=== PATIENT | male | born 1940 | race Caucasian/White ===

== ENCOUNTER 2022-11-17 23:19 | Inpatient (IN) ==
[2022-11-17] MEDS ORDERED: DIPHTHERIA/TETANUS/PERTUSSIS 0.5mL SYR/VIAL (Age 7+yrs) IM ONE (23:48)
[2022-11-17] MEDS ORDERED: fentaNYL citrate PF 100 MCG/2 ML VIAL IV STA (23:48)
--- NOTE | 2022-11-17 23:54 | Emergency Department Note ---
History of Present Illness General Chief complaint: Fall Stated complaint: Hip Pain, Laceration top of head Time Seen by Provider: 11/17/22 23:35 History of Present Illness Maximum Pain Intensity: 10 82-year-old male presents emergency department states that he walked outside on his porch and he fell off 3 steps landing on the ground and hit his head first. Patient states he has right hip pain. Patient is unsure whether he had loss of consciousness. Patient is currently on aspirin. Patient denies any neck pain numbness or tingling in the upper or lower extremities. Patient states pain with motion of the right hip. Patient denies any other trauma. There are no other mitigating or alleviating factors. Patient was given IV fentanyl by EMS prior to arrival Home Medications Medication Instructions Recorded Confirmed Type albuterol sulfate 90 mcg/actuation 2 puff inhalation Q4H PRN 11/17/22 11/18/22 History aerosol inhaler Shortness Of Breath aspirin 81 mg tablet,delayed 81 mg PO DAILY 11/17/22 11/18/22 History release budesonide-formoterol HFA 160 2 inh inhalation BID 11/17/22 11/18/22 History mcg-4.5 mcg/actuation aerosol inhaler (Symbicort) carbamazepine 200 mg tablet 200 mg PO TID 11/17/22 11/18/22 History cholecalciferol (vitamin D3) 25 50 mcg PO DAILY 11/17/22 11/18/22 History mcg (1,000 unit) tablet famotidine 20 mg tablet 20 mg PO DAILYBB 11/17/22 11/18/22 History finasteride 5 mg tablet 5 mg PO DAILY 11/17/22 11/18/22 History fluticasone propionate 50 2 spray intranasal DAILY 11/17/22 11/18/22 History mcg/actuation nasal spray,suspension folic acid 1 mg tablet 1 mg PO DAILY 11/17/22 11/18/22 History furosemide 20 mg tablet 20 mg PO DAILY 11/17/22 11/18/22 History metoprolol succinate 25 mg 12.5 mg PO DAILY 11/17/22 11/18/22 History tablet,extended release 24 hr oxycodone 5 mg tablet 5 mg PO Q6H PRN Pain 11/17/22 11/18/22 History pantoprazole 40 mg tablet,delayed 40 mg PO BID 11/17/22 11/18/22 History release potassium chloride 10 mEq 10 meq PO DAILY 11/17/22 11/18/22 History tablet,extended release(part/cryst) (Natalie White) simvastatin 20 mg tablet 40 mg PO QPM 11/17/22 11/18/22 History tamsulosin 0.4 mg capsule 0.8 mg PO DAILY 11/17/22 11/18/22 History tizanidine 4 mg tablet 4 mg PO Q8H PRN MUSCLE SPASMS 11/17/22 11/18/22 History Allergies Allergy/AdvReac Type Severity Reaction Status Date / Time tiotropium Allergy Severe "CAN'T Verified 11/18/22 00:06 CATCH MY BREATH". Past Med/Surg History Social History Smoking Status: Current every day smoker Tobacco Type: Cigars Feels Safe at Home: Yes Immunizations: Past medical history COPD, hypertension, lumbar spine issues, currently under pain management Social history positive for smoking Review of Systems A total of 10 systems reviewed and were otherwise negative Gastrointestinal: no abdominal pain Musculoskeletal: + limited range of motion; no back pain Physical Exam Vital Signs Vital Signs - 24 hr 11/17/22 23:23 11/17/22 23:30 11/17/22 23:36 Temperature 37.0 C Temperature Source Oral Pulse Rate 92 H 89 104 H Pulse Rate from SpO2 Sensor 101 H Pulse Rhythm Respiratory Rate 22 15 Respiratory Effort / Characteristics Non-Labored Respiratory Depth Normal Respiratory Pattern Regular Blood Pressure 136/58 L 125/71 Blood Pressure Mean 84 89 Pulse Oximetry 94 92 Oxygen Delivery Method Nasal Cannula Nasal Cannula Oxygen Flow Rate 2 2 Sepsis Recent Fever Within 48 Hours No Sepsis New/Unexplained Change in Mental Status N/A Sepsis Action Taken by Nursing No Action Required 11/17/22 23:51 11/18/22 00:41 Temperature Temperature Source Pulse Rate 104 H 104 H Pulse Rate from SpO2 Sensor 106 H Pulse Rhythm Regular Respiratory Rate 22 18 Respiratory Effort / Characteristics Respiratory Depth Respiratory Pattern Blood Pressure 134/77 Blood Pressure Mean 96 Pulse Oximetry 94 93 Oxygen Delivery Method Room Air Nasal Cannula Oxygen Flow Rate 2 Sepsis Recent Fever Within 48 Hours Sepsis New/Unexplained Change in Mental Status Sepsis Action Taken by Nursing GENERAL: Patient is awake alert in no acute distress patient is resting comfortably and showing no signs of anxiety EYES: The conjunctivae are clear. The pupils are round and reactive. EARS, NOSE, MOUTH AND THROAT: The nose is without any evidence of any deformity. Mucous membranes are moist. Tongue is midline. HEAD: Patient has a small superficial laceration approximately 2 cm on the vertex of his head NECK: The neck is nontender and supple. Nontender midline RESPIRATORY: Normal respiratory effort is noted there is no evidence of wheezing rhonchi or rales CARDIOVASCULAR: Regular rate and rhythm noted there no murmurs rubs or gallops normal S1 normal S2. GASTROINTESTINAL: The abdomen is soft. Abdomen is nontender. PELVIS: The Pelvis is stable. Patient has tenderness to the right hip with decreased range of motion he is neurovascularly intact distally BACK: No midline tenderness or or step-off noted range of motion in flexion extension as well as rotation no signs of muscle spasm noted MUSCULOSKELETAL/EXTREMITIES: There is no evidence of gross deformity full range of motion is noted in the hips and shoulders. SKIN: There is no obvious evidence of any rash. There are no petechiae, pallor or cyanosis noted. NEUROLOGIC: Patient is awake alert and oriented x3; GCS 15 Course Reevaluation(s) Reevaluation #1: Patient is resting in no distress on repeat examination. Patient was given IV fentanyl. Time: 00:51 Consultations Consultation #1: Case was discussed with the [facility] hospitalist for admission Time: 01:44 Administered Medications Discontinued Medications Diphtheria/Pertussis/Tetanus Vacc (Diphtheria/Tetanus/Pertussis 0.5ml Syr/Vial (Age 7+Yrs)) 0.5 ml IM .ONCE ONE Stop: 11/17/22 23:49 Last Admin: 11/18/22 00:06 Dose: 0.5 ml Documented By: ALEM Fentanyl Citrate (Fentanyl Citrate Pf 100 Mcg/2 Ml Vial) 50 mcg IV NOW STA Stop: 11/17/22 23:49 Last Admin: 11/18/22 00:08 Dose: 50 mcg Documented By: ALEM Morphine Sulfate (Morphine Sulfate 2 Mg/Ml Carp) 2 mg IV NOW STA Stop: 11/18/22 01:24 Last Admin: 11/18/22 01:37 Dose: 2 mg Documented By: ALEM Medical Decision Making Medical Records Attestation: I reviewed the patient's medical records. Home Medications Current Medication List: was personally reviewed by Laboratory Data Attestation: I reviewed the patient's lab results. Lab work reviewed by me is unremarkable 11/18/22 00:05 11/18/22 00:05 Lab Results 11/18/22 11/18/22 11/18/22 Range/Units 00:05 00:05 00:05 WBC 9.89 (4.8-10.8) K/ul RBC 3.11 L (4.70-6.10) M/uL Hgb 10.6 L (14.0-18.0) g/dl Hct 31.7 L (42.0-52.0) % MCV 101.9 H (80.0-100.0) fL MCH 34.1 H (25.0-34.0) pg MCHC 33.4 (32.0-36.0) g/dL RDW Std Deviation 52.1 H (36.4-46.3) fL RDW Coeff of Risa 13.9 (11.5-14.5) % Plt Count 229 (130-400) K/uL MPV 11.0 (9.4-12.4) fL Immature Gran % (Auto) 0.8 % Neut % (Auto) 69.2 % Lymph % (Auto) 19.6 % [place] % (Auto) 6.4 % Eos % (Auto) 3.5 % Baso % (Auto) 0.5 % Neut # (Auto) 6.84 H (1.40-6.50) K/uL Lymph # (Auto) 1.94 (1.2-3.4) K/uL Sum[place] # (Auto) 0.63 H (0.11-0.59) K/uL Eos # (Auto) 0.35 (0-0.50) K/uL Baso # (Auto) 0.05 (0-0.2) K/uL Immature Gran # (Auto) 0.08 (0.01-0.20) K/uL PT 10.6 (9.0-12.0) Seconds INR 1.0 (0.9-1.1) APTT 24.2 (21.0-31.0) Seconds PTT Ratio 0.9 Sodium 141 (136-145) mmol/L Potassium 3.6 (3.5-5.1) mmol/L Chloride 105 (98-107) mmol/L Carbon Dioxide 28 (21-32) mmol/L Anion Gap 8 (3-11) BUN 23 (6-23) mg/dl Creatinine 0.96 (0.6-1.4) mg/dl Est Cr Clr Drug Dosing 47.0 ml/min Est GFR ( Amer) 84.4 ml/min Est GFR (Non-Af Amer) 72.8 ml/min BUN/Creatinine Ratio 24.0 H (10-20) Glucose 141 H (70-99(Fasting)) mg/dl Calcium 8.6 (8.6-10.3) mg/dl Total Bilirubin 0.3 (0.2-1.0) mg/dl AST 18 (13-39) U/L ALT 17 (7-52) U/L Alkaline Phosphatase 119 H (34-104) U/L Total Protein 6.3 (6.0-8.3) gm/dl Albumin 3.7 (3.4-5.0) gm/dl Globulin 2.6 (2.5-4.0) gm/dl Albumin/Globulin Ratio 1.4 (0.9-2) SARS-CoV-2, RNA, NAAT (NEGATIVE) 11/18/22 Range/Units 00:57 WBC (4.8-10.8) K/ul RBC (4.70-6.10) M/uL Hgb (14.0-18.0) g/dl Hct (42.0-52.0) % MCV (80.0-100.0) fL MCH (25.0-34.0) pg MCHC (32.0-36.0) g/dL RDW Std Deviation (36.4-46.3) fL RDW Coeff of Risa (11.5-14.5) % Plt Count (130-400) K/uL MPV (9.4-12.4) fL Immature Gran % (Auto) % Neut % (Auto) % Lymph % (Auto) % Sumter % (Auto) % Eos % (Auto) % Baso % (Auto) % Neut # (Auto) (1.40-6.50) K/uL Lymph # (Auto) (1.2-3.4) K/uL Sumter # (Auto) (0.11-0.59) K/uL Eos # (Auto) (0-0.50) K/uL Baso # (Auto) (0-0.2) K/uL Immature Gran # (Auto) (0.01-0.20) K/uL PT (9.0-12.0) Seconds INR (0.9-1.1) APTT (21.0-31.0) Seconds PTT Ratio Sodium (136-145) mmol/L Potassium (3.5-5.1) mmol/L Chloride (98-107) mmol/L Carbon Dioxide (21-32) mmol/L Anion Gap (3-11) BUN (6-23) mg/dl Creatinine (0.6-1.4) mg/dl Est Cr Clr Drug Dosing ml/min Est GFR ( Amer) ml/min Est GFR (Non-Af Amer) ml/min BUN/Creatinine Ratio (10-20) Glucose (70-99(Fasting)) mg/dl Calcium (8.6-10.3) mg/dl Total Bilirubin (0.2-1.0) mg/dl AST (13-39) U/L ALT (7-52) U/L Alkaline Phosphatase (34-104) U/L Total Protein (6.0-8.3) gm/dl Albumin (3.4-5.0) gm/dl Globulin (2.5-4.0) gm/dl Albumin/Globulin Ratio (0.9-2) SARS-CoV-2, RNA, NAAT NEGATIVE (NEGATIVE) Imaging Data Attestation: I personally reviewed and interpreted this imaging study as follows: My Impression: Chest x-ray interpreted by me negative for pneumothorax, no effusion, there are COPD changes, pacemaker is present Right hip and pelvis x-rays interpreted by me, positive for right intertrochanteric hip fracture CT of the brain independently interpreted by me is negative for intracranial hemorrhage Radiologist's Impression: Cervical Spine CT 11/17/22 23:48 Exam(s): CT C SPINE EXAM: CT Cervical Spine Without Intravenous Contrast CLINICAL HISTORY: Reason for exam: head injury. TECHNIQUE: Axial computed tomography images of the cervical spine without intravenous contrast. Automated exposure control was utilized for the study. A dose lowering technique was utilized adhering to the principles of ALARA. COMPARISON: No relevant prior studies available. FINDINGS: Vertebrae: Multilevel cervical spondylosis and facet arthropathy. 3-4 mm anterolisthesis C3-4. May be degenerative in nature. No acute fracture. Discs/spinal canal/neural foramina: No acute process. Soft tissues: Unremarkable. Lung apices: Pulmonary emphysema. Small spiculation and pneumonitis in the right upper lung field. Tubes, lines and devices: Pacemaker. IMPRESSION: 1. No acute fracture. 2. 3-4 mm anterolisthesis C3-4. May be degenerative in nature. Electronically signed by: Ganesh Jimenez M.D. 11/18/22 00:[address] 11/17/22 23:48 Exam(s): CT HEAD Without Contrast EXAM: CT Head Without Intravenous Contrast CLINICAL HISTORY: Reason for exam: head injury. TECHNIQUE: Axial computed tomography images of the head/brain without intravenous contrast. Automated exposure control was utilized for the study. A dose lowering technique was utilized adhering to the principles of ALARA. COMPARISON: No relevant prior studies available. FINDINGS: Brain: No hemorrhage. No apparent acute cortical infarct. No mass lesion or midline shift. Involutional changes with small vessel disease. Ventricles: No hydrocephalus. Bones/joints: No acute fracture. Soft tissues: Unremarkable. Sinuses: No acute sinusitis. Mastoid air cells: No mastoid effusion. Orbits: Cataract surgery. Tubes, lines and devices: Pacemaker. IMPRESSION: No acute findings in the head/brain. Electronically signed by: Ganesh Jimenez M.D. 11/18/22 00:41 AM [facility] Narrative Medical decision making differential diagnosis includes closed head injury, intracranial hemorrhage, subarachnoid hemorrhage, skull fracture, cervical spine injury, right hip fracture, dislocation, contusion Plan is to check labs, CT, x-ray EMS report was provided to sd External medical records were reviewed Independent history was obtained from the patient's at bedside Patient has a positive intertrochanteric hip fracture, patient will be admitted for further evaluation and orthopedic consultation Impression & Plan Closed right hip fracture, Head injury, COPD (chronic obstructive pulmonary disease) Discharge Plan Visit Data Chief Complaint: Fall Stated Complaint: Hip Pain, Laceration top of head ED Provider: Gray Epps Discharge Problem: Closed right hip fracture, Head injury, COPD (chronic obstructive pulmonary disease) Patient Disposition: Admitted As Inpatient Forms Stand Alone Forms: [facility] Prescriptions Prescriptions: No Action tizanidine 4 mg tablet 4 mg PO Q8H PRN (Reason: MUSCLE SPASMS) aspirin 81 mg Tablet,Delayed Release (Dr/Ec) 81 mg PO DAILY carbamazepine 200 mg tablet 200 mg PO TID famotidine 20 mg tablet 20 mg PO DAILYBB tamsulosin 0.4 mg capsule 0.8 mg PO DAILY pantoprazole 40 mg tablet,delayed release (DR/EC) 40 mg PO BID simvastatin 20 mg tablet 40 mg PO QPM folic acid 1 mg tablet 1 mg PO DAILY furosemide 20 mg tablet 20 mg PO DAILY metoprolol succinate 25 mg tablet extended release 24 hr 12.5 mg PO DAILY albuterol sulfate 90 mcg/actuation HFA aerosol inhaler 2 puff INHALATION Q4H PRN (Reason: Shortness Of Breath) fluticasone propionate 50 mcg/actuation spray,suspension 2 spray INTRANASAL DAILY finasteride 5 mg tablet 5 mg PO DAILY oxycodone 5 mg tablet 5 mg PO Q6H MDD 20 MG/24 HOURS PRN (Reason: Pain) potassium chloride [Klor-Con M10] 10 mEq tablet,ER particles/crystals 10 meq PO DAILY cholecalciferol (vitamin D3) 25 mcg (1,000 unit) tablet 50 mcg PO DAILY budesonide-formoterol [Symbicort] 160-4.5 mcg/actuation HFA aerosol inhaler 2 inh INHALATION BID Referrals Referrals: PCP,NO [Physician] -
[2022-11-18 00:17] LABS: Basophils # (auto) 0.05 K/uL (0-0.2); Basophils % (auto) 0.5 %; Eosinophils # (auto) 0.35 K/uL (0-0.50); Eosinophils % (auto) 3.5 %; Hematocrit (blood only) 31.7 % (42.0-52.0); Hemoglobin 10.6 g/dl (14.0-18.0); Immature Granulocytes # (auto) 0.08 K/uL (0.01-0.20); Immature Granulocytes % (auto) 0.8 %; Lymphocytes # (auto) 1.94 K/uL (1.2-3.4); Lymphocytes % (auto) 19.6 %; Mean Corpuscular Hemoglobin 34.1 pg (25.0-34.0); Mean Corpuscular Hgb Conc 33.4 g/dL (32.0-36.0); Mean Corpuscular Volume 101.9 fL (80.0-100.0); Monocytes # (auto) 0.63 K/uL (0.11-0.59); Monocytes % (auto) 6.4 %; Neutrophils # (auto) 6.84 K/uL (1.40-6.50); Neutrophils % (auto) 69.2 %; Platelet Count 229 K/uL (130-400); RDW Coefficient of Variation 13.9 % (11.5-14.5); RDW Standard Deviation 52.1 fL (36.4-46.3); Red Blood Count 3.11 M/uL (4.70-6.10); White Blood Count 9.89 K/ul (4.8-10.8)
[2022-11-18 00:32] LABS: Partial Thromboplastin Ratio 0.9; Partial Thromboplastin Time 24.2 Seconds (21.0-31.0); Prothrombin Time 10.6 Seconds (9.0-12.0)
[2022-11-18 00:39] LABS: Albumin Globulin Ratio 1.4 (0.9-2); Albumin Level 3.7 gm/dl (3.4-5.0); Bilirubin,Total 0.3 mg/dl (0.2-1.0); Calcium 8.6 mg/dl (8.6-10.3); Est GFR (African American) 84.4 ml/min; Est GFR (Non-African American) 72.8 ml/min; Globulin 2.6 gm/dl (2.5-4.0); Potassium 3.6 mmol/L (3.5-5.1); Total Protein 6.3 gm/dl (6.0-8.3)
--- NOTE | 2022-11-18 00:41 | CT Scan Report ---
Exam(s): CT HEAD Without Contrast EXAM: CT Head Without Intravenous Contrast CLINICAL HISTORY: Reason for exam: head injury. TECHNIQUE: Axial computed tomography images of the head/brain without intravenous contrast. Automated exposure control was utilized for the study. A dose lowering technique was utilized adhering to the principles of ALARA. COMPARISON: No relevant prior studies available. FINDINGS: Brain: No hemorrhage. No apparent acute cortical infarct. No mass lesion or midline shift. Involutional changes with small vessel disease. Ventricles: No hydrocephalus. Bones/joints: No acute fracture. Soft tissues: Unremarkable. Sinuses: No acute sinusitis. Mastoid air cells: No mastoid effusion. Orbits: Cataract surgery. Tubes, lines and devices: Pacemaker. IMPRESSION: No acute findings in the head/brain. Electronically signed by: Ganesh Jimenez M.D. 11/18/22 00:41 AM
--- NOTE | 2022-11-18 00:44 | CT Scan Report ---
Exam(s): CT C SPINE EXAM: CT Cervical Spine Without Intravenous Contrast CLINICAL HISTORY: Reason for exam: head injury. TECHNIQUE: Axial computed tomography images of the cervical spine without intravenous contrast. Automated exposure control was utilized for the study. A dose lowering technique was utilized adhering to the principles of ALARA. COMPARISON: No relevant prior studies available. FINDINGS: Vertebrae: Multilevel cervical spondylosis and facet arthropathy. 3-4 mm anterolisthesis C3-4. May be degenerative in nature. No acute fracture. Discs/spinal canal/neural foramina: No acute process. Soft tissues: Unremarkable. Lung apices: Pulmonary emphysema. Small spiculation and pneumonitis in the right upper lung field. Tubes, lines and devices: Pacemaker. IMPRESSION: 1. No acute fracture. 2. 3-4 mm anterolisthesis C3-4. May be degenerative in nature. Electronically signed by: Ganesh Jimenez M.D. 11/18/22 00:43 AM
[2022-11-18] MEDS ORDERED: MoRPHine SULFATE 2 MG/ML CARP IV STA ×2 (01:23→01:44)
[2022-11-18] MEDS ORDERED: tiZANidine HCL 4 MG TABLET PO PRN (02:29)
[2022-11-18] MEDS ORDERED: LACTATED RINGER'S 1,000 ML IV SCH (02:29)
[2022-11-18] MEDS ORDERED: NALOXONE HCL 0.4 MG/1 ML VIAL/CARP IV PRN (02:29)
[2022-11-18] MEDS ORDERED: MAGNESIUM HYDROXIDE SUSP 30 ML UDC PO PRN (02:29)
[2022-11-18] MEDS ORDERED: MoRPHine SULFATE 2 MG/ML CARP IV PRN (02:29)
[2022-11-18] MEDS ORDERED: bisacodyL 10 MG SUPP PR PRN (02:29)
--- NOTE | 2022-11-18 02:34 | History & Physical Report ---
Date of Service November 18, 2022 Assessment & Plan (1) Fall: Plan: 82-year-old male with history of fall from approximately 3-4 step height with resultant head trauma and trauma to right shoulder and hip. CT head and neck are unremarkable. Patient is awake, alert, oriented, speaking clearly, answering questions appropriately and following commands. Pupils are constricted bilaterally after receiving morphine but equal and reactive. Patient denies chest pain, palpitations, dizziness preceding or following the fall. He is on aspirin 81 mg daily for history of coronary artery disease with stent placement in 2010. No additional blood thinners. Admit to medical Neurochecks with GCS every 4 hours Fall precautions (2) Closed right hip fracture: Plan: Patient with intertrochanteric fracture of the right hip. Neurovascularly intact. In considerable pain despite IV pain medication. Keep n.p.o. Orthopedic surgery consultation appreciated Pain control with morphine as needed Bowel regimen From a surgical standpoint patient with multiple medical comorbidities to include COPD on oxygen nightly and coronary artery disease with remote history of stent placed. He also has an AICD in place. His chronic diseases are stable and appropriately managed. Will request outpatient records from PCP and cardiology. He may proceed to surgery without further testing. Will hold aspirin 81 mg for now. Continue metoprolol. (3) COPD (chronic obstructive pulmonary disease): Plan: Chronic. No acute exacerbation. Patient is on 2 L of oxygen at night. Continue supplemental oxygen Continue albuterol as needed Continue Symbicort twice daily (4) CAD (coronary artery disease): Plan: Chronic. Stable. Patient denies chest pain. EKG with no acute ischemic changes. Record request for outpatient cardiology Holding aspirin in setting of presumed surgery Continue simvastatin 40 mg p.o. every afternoon Continue metoprolol 12.5 mg p.o. daily Continue Lasix 20 mg p.o. daily (5) Perforated gastric ulcer: Plan: Patient with remote history of perforated gastric ulcer status post laparotomy. He reports having a PEG tube temporarily which has since been removed. No further issues. Continue Protonix 40 mg p.o. twice daily Continue famotidine 20 mg p.o. daily (6) Hyperlipidemia: Plan: Chronic. Stable. Continue simvastatin 40 mg p.o. daily (7) Hypertension: Plan: Blood pressure stable. Continue metoprolol 12.5 mg p.o. daily Continue to monitor (8) BPH (benign prostatic hyperplasia): Plan: Chronic. Stable. Continue tamsulosin 0.8 mg p.o. daily Continue finasteride 5 mg p.o. daily F/E/N -LR at 80 mL/h x 1 L, electrolytes within normal limits, n.p.o. for now ProphylaxisSCDs to bilateral lower extremities Codefull per discussion with patient Dispositionadmit to medical History of Present Illness Chief Complaint: Fall, head trauma, right intertrochanteric hip fracture Primary Care Provider: James Madsen PA-C James Ibarra is a pleasant 82-year-old male with history of COPD (2 L nasal cannula nightly), CAD status post stent placement 2010, GERD, BPH, hypertension and hyperlipidemia presenting from home after sustaining a fall for approximately 3-4 steps. Patient walked out on his patio and fell from a height of 3-4 steps. He landed headfirst on the concrete and struck his right shoulder and hip as well. He is uncertain if he lost consciousness. He had immediate pain in his right hip. No additional complaints. In the ER he is afebrile, tachycardic otherwise hemodynamically stable. No respiratory distress. Adequate oxygenation on 2 L of oxygen by nasal cannula. Work-up as below, in summary reveals a right intertrochanteric hip fracture. Patient denies chest pain, palpitations, cough, shortness of breath. Denies abdominal pain, nausea, vomiting, diarrhea, constipation. Denies double vision, focal numbness/tingling/weakness. Denies neck pain. ER course: IV fentanyl per EMS Fentanyl 50 mcg IV Morphine 2 mg IV x2 doses Allergies Allergy/AdvReac Type Severity Reaction Status Date / Time tiotropium Allergy Severe "CAN'T Verified 11/18/22 00:06 CATCH MY BREATH". Home Medications Medication Instructions Recorded Confirmed Type albuterol sulfate 90 mcg/actuation 2 puff inhalation Q4H PRN 11/17/22 11/18/22 History aerosol inhaler Shortness Of Breath aspirin 81 mg tablet,delayed 81 mg PO DAILY 11/17/22 11/18/22 History release budesonide-formoterol HFA 160 2 inh inhalation BID 11/17/22 11/18/22 History mcg-4.5 mcg/actuation aerosol inhaler (Symbicort) carbamazepine 200 mg tablet 200 mg PO TID 11/17/22 11/18/22 History cholecalciferol (vitamin D3) 25 50 mcg PO DAILY 11/17/22 11/18/22 History mcg (1,000 unit) tablet famotidine 20 mg tablet 20 mg PO DAILYBB 11/17/22 11/18/22 History finasteride 5 mg tablet 5 mg PO DAILY 11/17/22 11/18/22 History fluticasone propionate 50 2 spray intranasal DAILY 11/17/22 11/18/22 History mcg/actuation nasal spray,suspension folic acid 1 mg tablet 1 mg PO DAILY 11/17/22 11/18/22 History furosemide 20 mg tablet 20 mg PO DAILY 11/17/22 11/18/22 History metoprolol succinate 25 mg 12.5 mg PO DAILY 11/17/22 11/18/22 History tablet,extended release 24 hr oxycodone 5 mg tablet 5 mg PO Q6H PRN Pain 11/17/22 11/18/22 History pantoprazole 40 mg tablet,delayed 40 mg PO BID 11/17/22 11/18/22 History release potassium chloride 10 mEq 10 meq PO DAILY 11/17/22 11/18/22 History tablet,extended release(part/cryst) (Klor-Con M) simvastatin 20 mg tablet 40 mg PO QPM 11/17/22 11/18/22 History tamsulosin 0.4 mg capsule 0.8 mg PO DAILY 11/17/22 11/18/22 History tizanidine 4 mg tablet 4 mg PO Q8H PRN MUSCLE SPASMS 11/17/22 11/18/22 History Past Med/Surg History Medical History (Updated 11/18/22 @ 02:23 by Dora Ferguson DO) BPH (benign prostatic hyperplasia) CAD (coronary artery disease) COPD (chronic obstructive pulmonary disease) GERD (gastroesophageal reflux disease) Status post laparotomy with repair Hyperlipidemia Hypertension ICD (implantable cardioverter-defibrillator) in place Perforated gastric ulcer Surgical History History of implantable cardioverter-defibrillator (ICD) placement History of laparotomy Family History (Updated 11/18/22 @ 02:17 by Dora Ferguson DO) Other Family history non-contributory Social History (Updated 11/18/22 @ 02:17 by Dora Ferguson DO) Smoking Status: Current every day smoker Tobacco Type: Cigars Hx Alcohol Use: No Hx Substance Use: No Feels Safe at Home: Yes Review of Systems Review of Systems: All systems reviewed & are unremarkable except as noted in HPI & below Physical Exam Physical Exam: General: Frail, elderly male patient resting comfortably, in no distress but complaining of significant right hip pain, non-toxic in appearance, AA&O to self, hospital. Is uncertain of date. Skin: Skin tear right posterior shoulder, small laceration at top of head HEENT: Facial bones stable, no Medel sign or raccoon eyes, pupils constricted, equal bilaterally and reactive, EOMI with no pain, anicteric sclera, conjunctiva without injection, external ear normal to inspection and nontender, nares patent, moist mucus membranes, dentures in place, no oropharyngeal lesions, neck supple, trachea midline, no LAD, no thyromegaly, no JVD Heart: +S1/S2, regular, tachycardic, no m/r/g, ICD in place, nontender Lungs: equal air entry bilaterally, no rales/rhonchi/wheezes Abd: +BS, soft, NT/ND, no masses/organomegaly/ascites, well-healed midline abdominal scar Ext: warm, 2+ pulses in UE/LE bilaterally, no clubbing/cyanosis or edema, right lower extremity with mild deformity at hip, tender, neurovascularly intact Neuro: nonfocal, patient AA&O to self and location, able to answer questions and converse appropriately, speech intact, no facial droop, moving all extremities on command with equal strength 5/5, movement of right lower extremity limited secondary to pain Results & Data Results & Data Vital Signs (Past 12 Hours) Vital Signs Temp Pulse Resp BP Pulse Ox O2 Del Method O2 Flow Rate 11/18/22 02:00 106 H 23 124/75 95 Nasal Cannula 2 11/18/22 01:30 105 H 20 147/81 H 94 Room Air 2 11/18/22 01:00 99 H 22 127/72 94 Room Air 2 11/18/22 00:41 104 H 18 134/77 93 Nasal Cannula 2 11/17/22 23:51 104 H 22 94 Room Air 11/17/22 23:36 104 H 15 125/71 92 Nasal Cannula 2 11/17/22 23:30 89 11/17/22 23:23 37.0 C 92 H 22 136/58 L 94 Nasal Cannula 2 Laboratory Results Laboratory Results WBC 9.89 K/ul (4.8-10.8) 11/18/22 00:05 RBC 3.11 M/uL (4.70-6.10) L 11/18/22 00:05 Hgb 10.6 g/dl (14.0-18.0) L 11/18/22 00:05 Hct 31.7 % (42.0-52.0) L 11/18/22 00:05 MCV 101.9 fL (80.0-100.0) H 11/18/22 00:05 MCH 34.1 pg (25.0-34.0) H 11/18/22 00:05 MCHC 33.4 g/dL (32.0-36.0) 11/18/22 00:05 RDW Std Deviation 52.1 fL (36.4-46.3) H 11/18/22 00:05 RDW Coeff of Risa 13.9 % (11.5-14.5) 11/18/22 00:05 Plt Count 229 K/uL (130-400) 11/18/22 00:05 MPV 11.0 fL (9.4-12.4) 11/18/22 00:05 Immature Gran % (Auto) 0.8 % 11/18/22 00:05 Neut % (Auto) 69.2 % 11/18/22 00:05 Lymph % (Auto) 19.6 % 11/18/22 00:05 [place] % (Auto) 6.4 % 11/18/22 00:05 Eos % (Auto) 3.5 % 11/18/22 00:05 Baso % (Auto) 0.5 % 11/18/22 00:05 Neut # (Auto) 6.84 K/uL (1.40-6.50) H 11/18/22 00:05 Lymph # (Auto) 1.94 K/uL (1.2-3.4) 11/18/22 00:05 [place] # (Auto) 0.63 K/uL (0.11-0.59) H 11/18/22 00:05 Eos # (Auto) 0.35 K/uL (0-0.50) 11/18/22 00:05 Baso # (Auto) 0.05 K/uL (0-0.2) 11/18/22 00:05 Immature Gran # (Auto) 0.08 K/uL (0.01-0.20) 11/18/22 00:05 PT 10.6 Seconds (9.0-12.0) 11/18/22 00:05 INR 1.0 (0.9-1.1) 11/18/22 00:05 APTT 24.2 Seconds (21.0-31.0) 11/18/22 00:05 PTT Ratio 0.9 11/18/22 00:05 Sodium 141 mmol/L (136-145) 11/18/22 00:05 Potassium 3.6 mmol/L (3.5-5.1) 11/18/22 00:05 Chloride 105 mmol/L (98-107) 11/18/22 00:05 Carbon Dioxide 28 mmol/L (21-32) 11/18/22 00:05 Anion Gap 8 (3-11) 11/18/22 00:05 BUN 23 mg/dl (6-23) 11/18/22 00:05 Creatinine 0.96 mg/dl (0.6-1.4) 11/18/22 00:05 Est Cr Clr Drug Dosing 47.0 ml/min 11/18/22 00:05 Est GFR ( Amer) 84.4 ml/min 11/18/22 00:05 Est GFR (Non-Af Amer) 72.8 ml/min 11/18/22 00:05 BUN/Creatinine Ratio 24.0 (10-20) H 11/18/22 00:05 Glucose 141 mg/dl (70-99(Fasting)) H 11/18/22 00:05 Calcium 8.6 mg/dl (8.6-10.3) 11/18/22 00:05 Total Bilirubin 0.3 mg/dl (0.2-1.0) 11/18/22 00:05 AST 18 U/L (13-39) 11/18/22 00:05 ALT 17 U/L (7-52) 11/18/22 00:05 Alkaline Phosphatase 119 U/L (34-104) H 11/18/22 00:05 Total Protein 6.3 gm/dl (6.0-8.3) 11/18/22 00:05 Albumin 3.7 gm/dl (3.4-5.0) 11/18/22 00:05 Globulin 2.6 gm/dl (2.5-4.0) 11/18/22 00:05 Albumin/Globulin Ratio 1.4 (0.9-2) 11/18/22 00:05 SARS-CoV-2, RNA, NAAT NEGATIVE (NEGATIVE) 11/18/22 00:[address] 11/17/22 23:48 Exam(s): CT C SPINE EXAM: CT Cervical Spine Without Intravenous Contrast CLINICAL HISTORY: Reason for exam: head injury. TECHNIQUE: Axial computed tomography images of the cervical spine without intravenous contrast. Automated exposure control was utilized for the study. A dose lowering technique was utilized adhering to the principles of ALARA. COMPARISON: No relevant prior studies available. FINDINGS: Vertebrae: Multilevel cervical spondylosis and facet arthropathy. 3-4 mm anterolisthesis C3-4. May be degenerative in nature. No acute fracture. Discs/spinal canal/neural foramina: No acute process. Soft tissues: Unremarkable. Lung apices: Pulmonary emphysema. Small spiculation and pneumonitis in the right upper lung field. Tubes, lines and devices: Pacemaker. IMPRESSION: 1. No acute fracture. 2. 3-4 mm anterolisthesis C3-4. May be degenerative in nature. Electronically signed by: Ganesh Jimenez M.D. 11/18/22 00:[address] 11/17/22 23:48 Exam(s): CT HEAD Without Contrast EXAM: CT Head Without Intravenous Contrast CLINICAL HISTORY: Reason for exam: head injury. TECHNIQUE: Axial computed tomography images of the head/brain without intravenous contrast. Automated exposure control was utilized for the study. A dose lowering technique was utilized adhering to the principles of ALARA. COMPARISON: No relevant prior studies available. FINDINGS: Brain: No hemorrhage. No apparent acute cortical infarct. No mass lesion or midline shift. Involutional changes with small vessel disease. Ventricles: No hydrocephalus. Bones/joints: No acute fracture. Soft tissues: Unremarkable. Sinuses: No acute sinusitis. Mastoid air cells: No mastoid effusion. Orbits: Cataract surgery. Tubes, lines and devices: Pacemaker. IMPRESSION: No acute findings in the head/brain. Electronically signed by: Ganesh Jimenez M.D. 11/18/22 00:41 AM ECG Additional Comments: EKG with ventricular paced rhythm, 103 bpm, QRS = 134, QTc 495. No Previous EKGs Available for Comparison PG Care Time/CCT Total # of Minutes Spent Total Time Spent with Patient: Total time spent is greater than 50% in coordination of care (as documented) at patient's floor/unit and/or counseling patient: Coding Level of Care Code 60351 INT INP/OBS CARE 3/75MIN Diagnoses Fall W19.XXXA Closed right hip fracture S72.001A COPD (chronic obstructive pulmonary disease) J44.9 CAD (coronary artery disease) I25.10 Perforated gastric ulcer K25.5 Hyperlipidemia E78.5 Hypertension I10 BPH (benign prostatic hyperplasia) N40.0
[2022-11-18] MEDS: MoRPHine SULFATE 4 MG/ML 1 ML CARP\\VIAL IV PRN ×2 (02:42→05:48)
[2022-11-18] MEDS ORDERED: PNEUMOCOCCAL POLYSACCHARIDES 25 MCG/0.5 ML VIAL/SYR IM ONE (03:06)
[2022-11-18] MEDS ORDERED: ACETAMINOPHEN 1,000 MG/100 ML VIAL IV PRN (03:26)
[2022-11-18] MEDS: FAMOTIDINE 20 MG TAB PO SCH (05:50)
--- NOTE | 2022-11-18 07:13 | XRay Report ---
SINGLE VIEW CHEST CLINICAL HISTORY: Preoperative examination. Hip fracture FINDINGS: An AP, portable, supine chest radiograph is obtained. No prior studies are available for co mparison at the time of dictation. A 2-lead cardiac pacemaker is in place. The heart is mildly enlarg ed noting atherosclerotic calcification of the thoracic aorta. The pulmonary vasculature is nonconges kaylee. Images and this change is noted. Nonspecific interstitial thickening is likely chronic. There is mild elevation of the right hemidiaphragm with bibasilar scarring/atelectasis. No airspace consolida tion or large pleural effusion is identified. No pneumothorax is seen. The skeletal structures are os teopenic. The bony thorax is grossly intact. IMPRESSION: 1. Cardiomegaly, emphysema, and cardiac pacemaker without radiographic evidence of congestive failure . 2. No airspace consolidation or large pleural effusion is identified. 3. The suspicious opacity at the right apex seen on today's CT scan of the cervical spine is not appr eciated by x-ray. Nonemergent follow-up with a dedicated chest CT is recommended for further evaluati on. ACT 112: Positive. There are findings on this exam that require communication between the performing entity and the patient following Patient Test Result Information Act ([place] Act 112) guidelines. Electronically signed by: Lamin Aragon M.D. 11/18/2022 7:12 AM
--- NOTE | 2022-11-18 07:15 | XRay Report ---
SINGLE VIEW PELVIS; 2 VIEWS RIGHT HIP CLINICAL HISTORY: Fall with right hip injury. FINDINGS: An AP view of the pelvis with AP and crosstable lateral views of the right hip are obtained . No prior studies are available for comparison at the time of dictation. The skeletal structures are osteopenic. There is an angulated and comminuted intertrochanteric/subtrochanteric fracture of the r ight proximal femur with overlying soft tissue edema. There is medial displacement of the lesser troc hanter. No additional fracture is seen involving the left hip or the bony pelvis. Mild arthritic kee ge and joint space narrowing is seen in the hips. Degenerative sclerosis is noted in the sacroiliac j oints. Lumbosacral spondylosis is partially imaged. There is advanced atherosclerotic calcification o f the iliac and femoral arteries. IMPRESSION: Intertrochanteric/subtrochanteric fracture of the right proximal femur as above. Electronically signed by: Lamin Aragon M.D. 11/18/2022 7:13 AM
--- NOTE | 2022-11-18 07:31 | Hospitalist Progress Note ---
Date of Service November 18, 2022 Assessment & Plan (1) Fall: Plan: 82 y/o male with a PMHx of COPD on 2L HS, HTN, HLD, GERD - perforated gastric ulcer in distant past, smoking history, BPH, and CAD found to have a right hip fracture after a fall admitted for pain control and surgery. #Fall #Right hip fx Fell from 3-4 step height - head, right shoulder, and right hip trauma. CT head and neck clear. Patient found to have a neurovascularly intact intertrochanteric right hip fracture. Ortho on board. Would plan for surgical intervention. Cards for clearance. [] ortho on board [] cards on board - COPD on HS O2, CAD with prev stent placement, AICD in place [] fall precautions [] neuro checks [] NPO - easy to chew diet at home [] pain control with Morphine, bowel regimen, Zofran PRN #Multiple subsolid nodules 13 mm and 10 mm subsolid nodules found in the right lung. Pathologically indeterminant. There is concern for adenomatoid lesions. Patient has a distant smoking history 0.5-1.5 ppd for several years. No recent cigarette smoking. Does smoke cigars. Rec outpatient pulm vs inpatient pulm and repeat imaging CT in 3- 6 months. #COPD Chronic. No acute exacerbation. Patient is on 2 L of oxygen at night along with BID Symbicort and albuterol PRN. #CAD Chronic. Stable. Patient denies chest pain. EKG with no acute ischemic changes. Record request for outpatient cardiology [] continue Lasix 20 mg QD, metoprolol 12.5 mg QD, simvastatin 40 mg PO [] holding ASA in setting of presumed surgery #Perforated gastric ulcer Patient with remote history of perforated gastric ulcer status post laparotomy. He reports having a PEG tube temporarily which has since been removed. No further issues. [] Continue acid suppression - Protonix 40 mg BID, famotidine 20 mg PO. #HLD Chronic. Stable. Continue simvastatin 40 mg p.o. daily #HTN Blood pressure stable. Continue metoprolol 12.5 mg p.o. daily #BPH Chronic. Stable. Continue tamsulosin 0.8 mg p.o. daily. Continue finasteride 5 mg p.o. daily F/E/N -LR at 80 mL/h x 1 L, electrolytes within normal limits, n.p.o. for now ProphylaxisSCDs to bilateral lower extremities Codefull per discussion with patient Dispositionadmit to medical (2) Closed right hip fracture: (3) COPD (chronic obstructive pulmonary disease): (4) CAD (coronary artery disease): (5) Perforated gastric ulcer: (6) Hyperlipidemia: (7) Hypertension: (8) BPH (benign prostatic hyperplasia): Admission and Anticipated Discharge Date Admission Date: November 18, 2022 Supervising Physician Co-Signing Physician Notes I personally examined the patient and verified all daniels points of history and exam, discussed case, and agree with decision making with Dr Oconnor feeling ok overall. would like to proceed with hip surgery halina. understands risk/benefit of overall situation vitals noted nad heent nc at mmm breathing unlabored no accessory muscles good effort skin no rashes no pallor or icterus hip fracture - given high morbidity and mortality of untreated hip fracture, med ically acceptable risk // more favorable to proceed w surgery otherwise as above Subjective Patient reports nausea and pain this AM. NPO for presumed ORIF today. Review of Systems Review of Systems: See HPI Physical Exam Physical Exam: Gen: cachetic uncomfortable appearing elderly male no distress HEENT: AT NC Resp: CTAB no wheezing CV: RRR no m/r/g GI: non-tended Skin: no rashes or bruising noted Psych: appropriate mood and affect Neuro: alert and oriented Results & Data Results & Data Vital Signs (Past 12 Hours) Vital Signs Temp Pulse Pulse Resp BP BP Pulse Ox 11/18/22 02:56 11/18/22 02:56 37.0 C 107 H 18 151/52 H 98 11/18/22 02:10 36.6 C 102 H 20 124/75 95 11/18/22 02:00 106 H 23 124/75 95 11/18/22 01:30 105 H 20 147/81 H 94 11/18/22 01:00 99 H 22 127/72 94 11/18/22 00:41 104 H 18 134/77 93 11/17/22 23:51 104 H 22 94 11/17/22 23:36 104 H 15 125/71 92 11/17/22 23:30 89 11/17/22 23:23 37.0 C 92 H 22 136/58 L 94 O2 Del Method O2 Flow Rate 11/18/22 02:56 Room Air 2 11/18/22 02:56 Nasal Cannula 2 11/18/22 02:10 Nasal Cannula 2 11/18/22 02:00 Nasal Cannula 2 11/18/22 01:30 Room Air 2 11/18/22 01:00 Room Air 2 11/18/22 00:41 Nasal Cannula 2 11/17/22 23:51 Room Air 11/17/22 23:36 Nasal Cannula 2 11/17/22 23:30 11/17/22 23:23 Nasal Cannula 2 Laboratory Results 11/18/22 00:05 11/18/22 00:05 Diagnostic Findings Cervical Spine CT 11/17/22 23:48 Exam(s): CT C SPINE EXAM: CT Cervical Spine Without Intravenous Contrast CLINICAL HISTORY: Reason for exam: head injury. TECHNIQUE: Axial computed tomography images of the cervical spine without intravenous contrast. Automated exposure control was utilized for the study. A dose lowering technique was utilized adhering to the principles of ALARA. COMPARISON: No relevant prior studies available. FINDINGS: Vertebrae: Multilevel cervical spondylosis and facet arthropathy. 3-4 mm anterolisthesis C3-4. May be degenerative in nature. No acute fracture. Discs/spinal canal/neural foramina: No acute process. Soft tissues: Unremarkable. Lung apices: Pulmonary emphysema. Small spiculation and pneumonitis in the right upper lung field. Tubes, lines and devices: Pacemaker. IMPRESSION: 1. No acute fracture. 2. 3-4 mm anterolisthesis C3-4. May be degenerative in nature. Head CT 11/17/22 23:48 Exam(s): CT HEAD Without Contrast EXAM: CT Head Without Intravenous Contrast CLINICAL HISTORY: Reason for exam: head injury. TECHNIQUE: Axial computed tomography images of the head/brain without intravenous contrast. Automated exposure control was utilized for the study. A dose lowering technique was utilized adhering to the principles of ALARA. COMPARISON: No relevant prior studies available. FINDINGS: Brain: No hemorrhage. No apparent acute cortical infarct. No mass lesion or midline shift. Involutional changes with small vessel disease. Ventricles: No hydrocephalus. Bones/joints: No acute fracture. Soft tissues: Unremarkable. Sinuses: No acute sinusitis. Mastoid air cells: No mastoid effusion. Orbits: Cataract surgery. Tubes, lines and devices: Pacemaker. IMPRESSION: No acute findings in the head/brain. Hip/Pelvis X-Ray 11/17/22 23:48 SINGLE VIEW PELVIS; 2 VIEWS RIGHT HIP CLINICAL HISTORY: Fall with right hip injury. FINDINGS: An AP view of the pelvis with AP and crosstable lateral views of the right hip are obtained. No prior studies are available for comparison at the time of dictation. The skeletal structures are osteopenic. There is an angulated and comminuted intertrochanteric/subtrochanteric fracture of the right proximal femur with overlying soft tissue edema. There is medial displacement of the lesser trochanter. No additional fracture is seen involving the left hip or the bony pelvis. Mild arthritic change and joint space narrowing is seen in the hips. Degenerative sclerosis is noted in the sacroiliac joints. Lumbosacral spondylosis is partially imaged. There is advanced atherosclerotic calcification of the iliac and femoral arteries. IMPRESSION: Intertrochanteric/subtrochanteric fracture of the right proximal femur as above. Chest X-Ray 11/18/22 00:26 SINGLE VIEW CHEST CLINICAL HISTORY: Preoperative examination. Hip fracture FINDINGS: An AP, portable, supine chest radiograph is obtained. No prior studies are available for comparison at the time of dictation. A 2-lead cardiac pacemaker is in place. The heart is mildly enlarged noting atherosclerotic calcification of the thoracic aorta. The pulmonary vasculature is noncongested. Images and this change is noted. Nonspecific interstitial thickening is likely chronic. There is mild elevation of the right hemidiaphragm with bibasilar scarring/atelectasis. No airspace consolidation or large pleural effusion is identified. No pneumothorax is seen. The skeletal structures are osteopenic. The bony thorax is grossly intact. IMPRESSION: 1. Cardiomegaly, emphysema, and cardiac pacemaker without radiographic evidence of congestive failure. 2. No airspace consolidation or large pleural effusion is identified. 3. The suspicious opacity at the right apex seen on today's CT scan of the cervical spine is not appreciated by x-ray. Nonemergent follow-up with a dedicated chest CT is recommended for further evaluation. ACT 112: Positive. There are findings on this exam that require communication between the performing entity and the patient following Patient Test Result Information Act ([place] Act 112) guidelines. Electronically signed by: Lamin Aragon M.D. 11/18/2022 7:[address] 11/18/22 07:34 CT SCAN OF THE CHEST WITH IV CONTRAST CLINICAL HISTORY: Right apical opacity seen on cervical spine CT. COMPARISON STUDY: Chest x-ray dated 11/18/2022. CT of the cervical spine dated 11/18/2022. TECHNIQUE: Following the IV administration of 94 cc of Optiray 350, CT scan of the thorax was performed from the thoracic inlet to the upper abdomen. Images are reviewed in the axial, sagittal, and coronal planes. IV contrast was administered without complication. A dose lowering technique was utilized adhering to the principles of ALARA. The examination is significantly degraded by motion artifact. There is also streak artifact from the arms which could not be elevated above the chest. CT DOSE: 216.65 mGy.cm FINDINGS: Thyroid: Normal in size and heterogeneous in attenuation. Thoracic aorta: There is atherosclerotic calcification of the thoracic aorta. There is moderate dilatation of the ascending thoracic aorta which measures up to 4.0 cm. The remainder of the thoracic aorta is normal in caliber comment the arch demonstrates standard 3-vessel anatomy. No dissection is seen. Pulmonary vasculature: The pulmonary trunk is normal in caliber. There are no filling defects identified in the central pulmonary vessels to indicate pulmonary embolus. Note that this examination was not protocoled for evaluation of the pulmonary arteries. Heart: A cardiac pacemaker is present in the left chest wall. The heart is enlarged and without pericardial effusion. The coronary arteries are densely calcified. Lungs and pleural spaces: Evaluation of the lung parenchyma is degraded by motion artifact. There is moderate emphysema. No airspace consolidation or pleural effusion is identified. Scarring/atelectasis is noted at the lung bases. The trachea and central airways are clear. There is a 13 mm subsolid opacity at the right apex seen on image #50. An additional 10 mm subsolid opacity in the right lower lobe is seen on image #158. Mediastinum: There is no mediastinal lymphadenopathy. Pam: Clear. Axillae: There is no axillary lymphadenopathy. Upper abdomen: A small hiatal hernia is noted. Cysts in the partially imaged right kidney measure up to 3.3 cm. Skeletal structures: The skeletal structures are osteopenic. Degenerative changes and kyphoscoliosis is noted in the thoracic spine. There are mild and age indeterminate superior end plate compression deformities of T3 and T4. Arthritic change is noted in the shoulders. No lytic or blastic bony lesions are seen. IMPRESSION: 1. Streak and motion compromised examination. 2. Cardiomegaly and emphysema. 3. There are at least 2 subsolid opacities in the right lung which measure up to 13 mm. These are pathologically indeterminant, and although these could be inflammatory the appearance is more suspicious for adenomatoid lesions. Outpatient pulmonology assessment is advised, as is CT follow-up as per the Fleischner criteria. See below. 4. There is no airspace consolidation or pleural effusion. 5. There is mild aneurysmal dilatation of the ascending thoracic aorta which measures up to 4 cm. 6. Additional findings as above. Please refer to below summary of Fleischner criteria recommendations for follow- up of incidental CT nodules (Daniel Augustine, Guidelines for management of small pulm onary nodules detected on CT scans: A statement from the Fleischner Society, Radiology 237: [phone].) SOLID NODULES Solitary nodule size: <6 mm * low risk patients: no follow-up needed * high risk patients: optional CT at 12 months Solitary nodule size: 6-8 mm * low risk patients: follow-up at 6-12 months, then consider further follow-up at 18-24 months * high risk patients: initial follow-up CT at 6-12 months and then at 18-24 months if no change Solitary nodule size: >8 mm * either low or high risk patients - consider follow-up CT at 3 months, and/or CT-PET, and/or biopsy Multiple nodules size: <6 mm * low risk patients: no routine follow-up * high risk patients: optional CT at 12 months Multiple nodules size: 6-8 mm * low risk patients: follow-up at 3-6 months, then consider further follow-up at 18-24 months * high risk patients: follow-up at 3-6 months, then at 18-24 months if no change Multiple nodules size: >8 mm * low risk patients: follow-up at 3-6 months, then consider further follow-up at 18-24 months * high risk patients: follow-up at 3-6 months, then at 18-24 months if no change Note: newly detected indeterminate nodule in persons 35 years of age or older. * low risk patients: minimal or absent history of smoking and/or other known risk factors * high risk patients: history of smoking or of other known risk factors (e.g. first degree relative with lung cancer, or exposure to asbestos, radon, uranium) * if a nodule up to 8 mm is partly solid or is ground glass further follow-up is required after 24 months to exclude possible slow growing adenocarcinoma (DEANA) SUBSOLID NODULES Solitary pure ground-glass nodule * nodule size <6 mm - no CT follow-up required * nodule size >=6 mm - follow-up CT at 6-12 months, then every 2 years until 5 years Solitary part-solid nodule * nodule size <6 mm - no CT follow-up required * nodule size >=6 mm - follow-up CT at 3-6 months. If unchanged, and solid component remains <6 mm, then annual follow-up for 5 years Multiple subsolid nodules * nodule size <6 mm - follow-up CT at 3-6 months, consider further follow-up at 2 and 4 years if stable * nodule size >=6 mm - follow-up CT at 3-6 months, subsequent management based on the most suspicious nodule(s) ACT 112: Positive. There are findings on this exam that require communication between the performing entity and the patient following Patient Test Result Information Act ([place] Act 112) guidelines. Electronically signed by: Lamin Aragon M.D. 11/18/2022 9:45 AM Resident Activity Tracking Resident Involvement: Resident Care Provided Care Provided: Adult Hospital Medicine
[2022-11-18] MEDS ORDERED: MoRPHine SULFATE 4 MG/ML 1 ML CARP\\VIAL IV PRN (08:24)
--- NOTE | 2022-11-18 08:32 | Orthopedic Consultation ---
Date of Service November 18, 2022 Assessment & Plan (1) Fracture, intertrochanteric, right femur: 82-year-old male with CAD and COPD admitted with a displaced intertrochanteric fracture of his right hip. Recommend surgical stabilization as soon as medically optimized. -Discussed case with anesthesia. They prefer cardiology input/clearance to decide anesthesia options. Discussed with primary team of the need for cardiology clearance -Bedrest and pain control -Consider TXA for acute blood loss related hip fracture -Expect VTE prophylaxis needed postoperatively for at least 6 weeks. -Most likely will need senior care or acute rehab postoperatively. Dispo: He remains tentatively posted for trochanteric fixation nail today by myself or Dr. Ferguson. If there is any delay on anesthesia concerns, case can be reposted for tomorrow. I spoke with him about the nature of his fracture and recommended treatment of surgery. I discussed the risks of infection, neurovascular injury, arthrofibrosis of the hip, need for repeat or revision surgery, symptomatic hardware, malunion, nonunion, leg length discrepancy, implant complications, pain syndromes, failure to resume previous level of activity, blood clots, and complications related anesthesia. He has proper questions, demonstrated good understanding, and wants to proceed with surgery as soon as medically possible History of Present Illness Reason for Consultation: . Requesting Physician: . Attending Physician: Antonio Medina DO 82-year-old male with a history of COPD and heart disease fell down at least 3 stairs outside his porch last evening. He was admitted to the hospital via the emergency room. He did have some head injury that was cleared. 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 Is had no further care for that since stents were placed. He is on chronic low-dose aspirin therapy. He uses oxygen at night. He said he is a normal community ambulator without assistive devices prior to the fall. He lives with his "girl" and otherwise has assistance with living. Allergies Allergy/AdvReac Type Severity Reaction Status Date / Time tiotropium Allergy Severe "CAN'T Verified 11/18/22 00:06 CATCH MY BREATH". Home Medications Medication Instructions Recorded Confirmed Type albuterol sulfate 90 mcg/actuation 2 puff inhalation Q4H PRN 11/17/22 11/18/22 History aerosol inhaler Shortness Of Breath aspirin 81 mg tablet,delayed 81 mg PO DAILY 11/17/22 11/18/22 History release budesonide-formoterol HFA 160 2 inh inhalation BID 11/17/22 11/18/22 History mcg-4.5 mcg/actuation aerosol inhaler (Symbicort) carbamazepine 200 mg tablet 200 mg PO TID 11/17/22 11/18/22 History cholecalciferol (vitamin D3) 25 50 mcg PO DAILY 11/17/22 11/18/22 History mcg (1,000 unit) tablet famotidine 20 mg tablet 20 mg PO DAILYBB 11/17/22 11/18/22 History finasteride 5 mg tablet 5 mg PO DAILY 11/17/22 11/18/22 History fluticasone propionate 50 2 spray intranasal DAILY 11/17/22 11/18/22 History mcg/actuation nasal spray,suspension folic acid 1 mg tablet 1 mg PO DAILY 11/17/22 11/18/22 History furosemide 20 mg tablet 20 mg PO DAILY 11/17/22 11/18/22 History metoprolol succinate 25 mg 12.5 mg PO DAILY 11/17/22 11/18/22 History tablet,extended release 24 hr oxycodone 5 mg tablet 5 mg PO Q6H PRN Pain 11/17/22 11/18/22 History pantoprazole 40 mg tablet,delayed 40 mg PO BID 11/17/22 11/18/22 History release potassium chloride 10 mEq 10 meq PO DAILY 11/17/22 11/18/22 History tablet,extended release(part/cryst) (Klor-Con M) simvastatin 20 mg tablet 40 mg PO QPM 11/17/22 11/18/22 History tamsulosin 0.4 mg capsule 0.8 mg PO DAILY 11/17/22 11/18/22 History tizanidine 4 mg tablet 4 mg PO Q8H PRN MUSCLE SPASMS 11/17/22 11/18/22 History Past Med/Surg History Medical History BPH (benign prostatic hyperplasia) CAD (coronary artery disease) COPD (chronic obstructive pulmonary disease) GERD (gastroesophageal reflux disease) Status post laparotomy with repair Hyperlipidemia Hypertension ICD (implantable cardioverter-defibrillator) in place Perforated gastric ulcer Surgical History History of implantable cardioverter-defibrillator (ICD) placement History of laparotomy Family History Other Family history non-contributory Social History Smoking Status: Current every day smoker Tobacco Type: Cigars Cigarettes Per Day: 3-4; Hx Alcohol Use: No Hx Substance Use: No Preferred Language: Armenian Communication Ability: Effective [employer] Required: No Beliefs That Will Affect Care: None Current Living Situation: Significant Other Feels Safe at Home: Yes Safety Concerns: Feels Safe At This Time Assistive Devices: None Review of Systems All systems reviewed & are unremarkable except as noted in HPI & below. Physical Exam RLE: Lying supine with a blanket bump under his symptomatic right hip. Positive DF/PF/EHL. Irritable with any attempted logroll or manipulation of the right lower extremity. The skin over the hip is undisturbed. No evidence of ecchymosis or compromise. Constitutional WD/WN, vitals as above Respiratory normal respiratory effort; no respiratory distress Cardiovascular Extremities: normal capillary refill; no edema Chest (Breasts) Chest: normal inspection of chest Skin no rashes, warm and dry Psychiatric A+Ox3, euthymic affect Results & Data Results & Data Laboratory Results H & H 11/18/22 Range/Units 00:05 Hgb 10.6 L (14.0-18.0) g/dl Hct 31.7 L (42.0-52.0) % Coagulation 11/18/22 Range/Units 00:05 INR 1.0 (0.9-1.1) Diagnostic Findings Radiographs demonstrated intertrochanteric fracture with displacement. PG Care Time/CCT Total # of Minutes Spent Total Time Spent with Patient: Total time spent is greater than 50% in coordination of care (as documented) at patient's floor/unit and/or counseling patient: Coding Level of Care Code 04135 IN/OBS CONSULT LVL 4,60M (57 - DECISION FOR SURGERY) Diagnoses Fracture, intertrochanteric, right femur S72.141A
[2022-11-18] MEDS ORDERED: ONDANSETRON INJ 2 MG/ML 2 ML VIAL IV PRN (08:37)
[2022-11-18] MEDS ORDERED: BUDESONIDE/FORMOTEROL FUMARATE 160/4.5 60 PUFFS/INHALER INH SCH (09:00)
[2022-11-18] MEDS ORDERED: PANTOprazole 40 MG TAB PO SCH (09:00)
[2022-11-18] MEDS ORDERED: OPTIRAY 350 100ml IV ONE (09:12)
[2022-11-18] MEDS: FLUTICASONE PROPIONATE NA SPR 16 GM BTL SCH (09:43)
[2022-11-18] MEDS: carBAMazepine 200 MG TABLET PO SCH ×3 (09:43→20:52)
[2022-11-18] MEDS: FINASTERIDE 5 MG TAB PO SCH (09:43)
[2022-11-18] MEDS: FOLIC ACID 1 MG TAB PO SCH (09:43)
[2022-11-18] MEDS: FLUTICASONE/VILANTEROL 100/25MCG 14 PUFFS/INHALER INH SCH (09:43)
[2022-11-18] MEDS: TAMSULOSIN HCL 0.4 MG CAP PO SCH (09:44)
[2022-11-18] MEDS: METOPROLOL SUCC 25MG EXT REL TAB PO SCH (09:44)
--- NOTE | 2022-11-18 09:47 | CT Scan Report ---
CT SCAN OF THE CHEST WITH IV CONTRAST CLINICAL HISTORY: Right apical opacity seen on cervical spine CT. COMPARISON STUDY: Chest x-ray dated 11/18/2022. CT of the cervical spine dated 11/18/2022. TECHNIQUE: Following the IV administration of 94 cc of Optiray 350, CT scan of the thorax was perform ed from the thoracic inlet to the upper abdomen. Images are reviewed in the axial, sagittal, and olvin nal planes. IV contrast was administered without complication. A dose lowering technique was utilize d adhering to the principles of ALARA. The examination is significantly degraded by motion artifact. There is also streak artifact from the arms which could not be elevated above the chest. CT DOSE: 216.65 mGy.cm FINDINGS: Thyroid: Normal in size and heterogeneous in attenuation. Thoracic aorta: There is atherosclerotic calcification of the thoracic aorta. There is moderate dilat ation of the ascending thoracic aorta which measures up to 4.0 cm. The remainder of the thoracic aort a is normal in caliber comment the arch demonstrates standard 3-vessel anatomy. No dissection is seen . Pulmonary vasculature: The pulmonary trunk is normal in caliber. There are no filling defects identif ied in the central pulmonary vessels to indicate pulmonary embolus. Note that this examination was no t protocoled for evaluation of the pulmonary arteries. Heart: A cardiac pacemaker is present in the left chest wall. The heart is enlarged and without peric ardial effusion. The coronary arteries are densely calcified. Lungs and pleural spaces: Evaluation of the lung parenchyma is degraded by motion artifact. There is moderate emphysema. No airspace consolidation or pleural effusion is identified. Scarring/atelectasis is noted at the lung bases. The trachea and central airways are clear. There is a 13 mm subsolid opa city at the right apex seen on image #50. An additional 10 mm subsolid opacity in the right lower lob e is seen on image #158. Mediastinum: There is no mediastinal lymphadenopathy. Pam: Clear. Axillae: There is no axillary lymphadenopathy. Upper abdomen: A small hiatal hernia is noted. Cysts in the partially imaged right kidney measure up to 3.3 cm. Skeletal structures: The skeletal structures are osteopenic. Degenerative changes and kyphoscoliosis is noted in the thoracic spine. There are mild and age indeterminate superior end plate compression d eformities of T3 and T4. Arthritic change is noted in the shoulders. No lytic or blastic bony lesions are seen. IMPRESSION: 1. Streak and motion compromised examination. 2. Cardiomegaly and emphysema. 3. There are at least 2 subsolid opacities in the right lung which measure up to 13 mm. These are pat hologically indeterminant, and although these could be inflammatory the appearance is more suspicious for adenomatoid lesions. Outpatient pulmonology assessment is advised, as is CT follow-up as per the Fleischner criteria. See below. 4. There is no airspace consolidation or pleural effusion. 5. There is mild aneurysmal dilatation of the ascending thoracic aorta which measures up to 4 cm. 6. Additional findings as above. Please refer to below summary of Fleischner criteria recommendations for follow-up of incidental CT n odules (Daniel Augustine, Guidelines for management of small pulmonary nodules detected on CT scans: A sta tement from the Fleischner Society, Radiology 237: [phone].) SOLID NODULES Solitary nodule size: <6 mm * low risk patients: no follow-up needed * high risk patients: optional CT at 12 months Solitary nodule size: 6-8 mm * low risk patients: follow-up at 6-12 months, then consider further follow-up at 18-24 months * high risk patients: initial follow-up CT at 6-12 months and then at 18-24 months if no change Solitary nodule size: >8 mm * either low or high risk patients - consider follow-up CT at 3 months, and/or CT-PET, and/or biopsy Multiple nodules size: <6 mm * low risk patients: no routine follow-up * high risk patients: optional CT at 12 months Multiple nodules size: 6-8 mm * low risk patients: follow-up at 3-6 months, then consider further follow-up at 18-24 months * high risk patients: follow-up at 3-6 months, then at 18-24 months if no change Multiple nodules size: >8 mm * low risk patients: follow-up at 3-6 months, then consider further follow-up at 18-24 months * high risk patients: follow-up at 3-6 months, then at 18-24 months if no change Note: newly detected indeterminate nodule in persons 35 years of age or older. * low risk patients: minimal or absent history of smoking and/or other known risk factors * high risk patients: history of smoking or of other known risk factors (e.g. first degree relative with lung cancer, or exposure to asbestos, radon, uranium) * if a nodule up to 8 mm is partly solid or is ground glass further follow-up is required after 24 m onths to exclude possible slow growing adenocarcinoma (DEANA) SUBSOLID NODULES Solitary pure ground-glass nodule * nodule size <6 mm - no CT follow-up required * nodule size >=6 mm - follow-up CT at 6-12 months, then every 2 years until 5 years Solitary part-solid nodule * nodule size <6 mm - no CT follow-up required * nodule size >=6 mm - follow-up CT at 3-6 months. If unchanged, and solid component remains <6 mm, then annual follow-up for 5 years Multiple subsolid nodules * nodule size <6 mm - follow-up CT at 3-6 months, consider further follow-up at 2 and 4 years if sta ble * nodule size >=6 mm - follow-up CT at 3-6 months, subsequent management based on the most suspiciou s nodule(s) ACT 112: Positive. There are findings on this exam that require communication between the performing entity and the patient following Patient Test Result Information Act ([place] Act 112) guidelines. Electronically signed by: Lamin Aragon M.D. 11/18/2022 9:45 AM
[2022-11-18] MEDS: ACETAMINOPHEN 1,000 MG/100 ML VIAL IV SCH ×2 (12:12→20:52)
--- NOTE | 2022-11-18 14:15 | Cardiology Consultation ---
Date of Consultation November 18, 2022 Assessment & Plan (1) CAD (coronary artery disease): -history of an intracoronary stent placed back in 2010. No details. -has been quiescent on medical management. -continue metoprolol and simvastatin. -aspirin placed on hold due to upcoming surgery. (2) Hypertension: -blood pressure adequately controlled on current regimen. (3) Hyperlipidemia: -continue simvastatin. 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 -generator change in 2019. (5) Preop cardiovascular exam: -he demonstrated excellent functional status prior to his mechanical fall. -acceptable cardiac risk for orthopedic surgery without further testing. History of Present Illness Attending Physician: Antonio Medina DO History of Present Illness Mr. Ibarra is an 82-year-old male admitted yesterday after mechanical fall resulted in a right hip fracture. This consultation was ordered to assess his cardiac risk for surgery. 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 The patient was in his usual state of health until the day of presentation. He misjudged a step and fell a total of 3-4 steps onto a patio injuring his right shoulder and hip. He also struck his head on the concrete. Fortunately, CT scan of the head failed to show an acute injury. X-rays noted a displaced intertrochanteric fracture of the right hip. He will require a surgical repair. The patient's cardiac history began back in 2010 when he had an intracoronary stent deployed. Details of the procedure not available for our review. In any event, he has been very active since that time without exertional angina pectoris limiting dyspnea. He is able to cut his lawn, rake leaves, shovel snow, and climb at least 3 flight of stairs without difficulty. He had a permanent dual-chamber pacemaker placed also back in 2010 for what sounds like high degree AV block. He had a generator change performed in 2019. Details are not available for our review. Currently, patient is resting comfortably in bed complaining of significant right hip pain. Past medical and surgical history 1. Coronary artery disease-see above 2. Hypertension 3. Hypercholesterolemia 4. Dilated ascending thoracic aorta -4 cm in diameter, October 2019 5. DDD pacemaker-2019 6. COPD 7. GERD 8. History of gastric ulcer 9. BPH Social history Single, but lives with his significant other Smokes 3-4 cigarettes per day No alcohol Family history Noncontributory Review of systems A 10 point review systems was undertaken and negative except that described above. Allergies Allergy/AdvReac Type Severity Reaction Status Date / Time tiotropium Allergy Severe "CAN'T Verified 11/18/22 00:06 CATCH MY BREATH". Home Medications Medication Instructions Recorded Confirmed Type albuterol sulfate 90 mcg/actuation 2 puff inhalation Q4H PRN 11/17/22 11/18/22 History aerosol inhaler Shortness Of Breath aspirin 81 mg tablet,delayed 81 mg PO DAILY 11/17/22 11/18/22 History release budesonide-formoterol HFA 160 2 inh inhalation BID 11/17/22 11/18/22 History mcg-4.5 mcg/actuation aerosol inhaler (Symbicort) carbamazepine 200 mg tablet 200 mg PO TID 11/17/22 11/18/22 History cholecalciferol (vitamin D3) 25 50 mcg PO DAILY 11/17/22 11/18/22 History mcg (1,000 unit) tablet famotidine 20 mg tablet 20 mg PO DAILYBB 11/17/22 11/18/22 History finasteride 5 mg tablet 5 mg PO DAILY 11/17/22 11/18/22 History fluticasone propionate 50 2 spray intranasal DAILY 11/17/22 11/18/22 History mcg/actuation nasal spray,suspension folic acid 1 mg tablet 1 mg PO DAILY 11/17/22 11/18/22 History furosemide 20 mg tablet 20 mg PO DAILY 11/17/22 11/18/22 History metoprolol succinate 25 mg 12.5 mg PO DAILY 11/17/22 11/18/22 History tablet,extended release 24 hr oxycodone 5 mg tablet 5 mg PO Q6H PRN Pain 11/17/22 11/18/22 History pantoprazole 40 mg tablet,delayed 40 mg PO BID 11/17/22 11/18/22 History release potassium chloride 10 mEq 10 meq PO DAILY 11/17/22 11/18/22 History tablet,extended release(part/cryst) (Klor-Con M) simvastatin 20 mg tablet 40 mg PO QPM 11/17/22 11/18/22 History tamsulosin 0.4 mg capsule 0.8 mg PO DAILY 11/17/22 11/18/22 History tizanidine 4 mg tablet 4 mg PO Q8H PRN MUSCLE SPASMS 11/17/22 11/18/22 History Patient History Medical History BPH (benign prostatic hyperplasia) CAD (coronary artery disease) COPD (chronic obstructive pulmonary disease) GERD (gastroesophageal reflux disease) Status post laparotomy with repair Hyperlipidemia Hypertension ICD (implantable cardioverter-defibrillator) in place Perforated gastric ulcer Surgical History History of implantable cardioverter-defibrillator (ICD) placement History of laparotomy Family History Other Family history non-contributory Social History Smoking Status: Current every day smoker Tobacco Type: Cigars Cigarettes Per Day: 3-4; Hx Alcohol Use: No Hx Substance Use: No Preferred Language: Czech Communication Ability: Effective Fourdrinier Operator Required: No Beliefs That Will Affect Care: None Current Living Situation: Significant Other Feels Safe at Home: Yes Safety Concerns: Feels Safe At This Time Assistive Devices: None Physical Exam Physical Exam: In general is well-developed well-nourished white male in no acute distress. HEENT exam is negative. Neck is supple with full carotid upstrokes. No carotid bruits. Jugular is pressure is flat at 90. There is no thyromegaly. Cardiovascular exam reveals a regular rhythm with distant heart sounds. No obvious murmurs. No S3. Chest reveals a palpable pacemaker in left subclavicular region. Lungs note coarse breath sounds and expiratory wheezing throughout. Abdomen is soft without bruits. Extremities reveal intact radial artery pulses bilaterally. There is no peripheral edema. Right leg is internally rotated. Results & Data Vital Signs (Past 12 Hours) Vital Signs Temp Pulse Pulse Resp BP Pulse Ox O2 Del Method 11/18/22 07:55 Nasal Cannula 11/18/22 07:51 37.1 C 80 18 124/68 99 Room Air 11/18/22 02:56 Room Air 11/18/22 02:56 37.0 C 107 H 18 151/52 H 98 Nasal Cannula O2 Flow Rate 11/18/22 07:55 11/18/22 07:51 11/18/22 02:56 2 11/18/22 02:56 2 Laboratory Results CBC notes hemoglobin 10.6, hematocrit 31.7, white count 9.8, platelet count 22 9000. Electrolytes note a sodium of 141, potassium 3.6, chloride 105, bicarb 20, BUN 23, creatinine 0.96, and glucose of 141. Diagnostic Findings EKG notes ventricular pacing. There was significant baseline artifact. Chest x-ray notes a dual-chamber pacemaker. PG Care Time/CCT Total # of Minutes Spent Total Time Spent with Patient: Total time spent is greater than 50% in coordination of care (as documented) at patient's floor/unit and/or counseling patient: Coding Level of Care Code 64510 INT INP/OBS CARE 3/75MIN Diagnoses CAD (coronary artery disease) I25.10 Hypertension I10 Hyperlipidemia E78.5 Pacemaker Z95.0 Preop cardiovascular exam Z01.810
--- NOTE | 2022-11-18 15:03 | Electrocardiogram Report ---
Test Reason : Blood Pressure : / mmHG Vent. Rate : 103 BPM Atrial Rate : 062 BPM P-R Int : 000 ms QRS Dur : 134 ms QT Int : 378 ms P-R-T Axes : 000 100 -50 degrees QTc Int : 495 ms Poor data quality, interpretation may be adversely affected Ventricular-paced rhythm Abnormal ECG No previous ECGs available Confirmed by Rachid Lopez ([id number]) on 11/18/2022 3:03:11 PM Referred By: REFERRED SELF Confirmed By:Rachid Lopez
[2022-11-18] MEDS: MoRPHine SULFATE 2 MG/ML CARP IV PRN (17:44)
--- NOTE | 2022-11-18 18:28 | Billing Data ---
Date of Service November 18, 2022 Coding Level of Care Code 55242 SUB INP/OBS CARE MIN
[2022-11-18] MEDS: PANTOprazole 40 MG in SYRINGE 0 ML IV SCH (20:51)
[2022-11-18] MEDS: DOCUSATE SODIUM/SENNA 50/8.6MG TAB PO SCH (20:52)
[2022-11-18] MEDS: SIMVASTATIN 40 MG TAB PO SCH (20:53)
[2022-11-18] MEDS: PSEUDOEPHEDRINE HCL 30 MG TAB PO PRN (22:12)
[2022-11-18] MEDS: ALBUTEROL HFA 8 GM INHALER INH PRN (22:28)
[2022-11-19] MEDS: ACETAMINOPHEN 1,000 MG/100 ML VIAL IV SCH ×2 (04:28→12:16)
[2022-11-19] MEDS: FAMOTIDINE 20 MG TAB PO SCH (06:19)
--- NOTE | 2022-11-19 07:04 | Hospitalist Progress Note ---
Date of Service November 19, 2022 Assessment & Plan (1) Fall: Plan: 82 y/o male with a PMHx of COPD on 2L HS, HTN, HLD, GERD - perforated gastric ulcer in distant past, smoking history, BPH, and CAD found to have a right hip fracture after a fall admitted for pain control and surgery. #Fall #Right hip fx Fell from 3-4 step height - head, right shoulder, and right hip trauma. CT head and neck clear. Patient found to have a neurovascularly intact intertrochanteric right hip fracture. Ortho on board. Would plan for surgical intervention as soon as possible. Cards for clearance. [] ortho on board [] cards on board - COPD on HS O2, CAD with prev stent placement, AICD in place [] fall precautions [] neuro checks [] NPO - easy to chew diet at home [] pain control with Morphine, bowel regimen, Zofran PRN #Multiple subsolid nodules 13 mm and 10 mm subsolid nodules found in the right lung. Pathologically indeterminant. There is concern for adenomatoid lesions. Patient has a distant smoking history 0.5-1.5 ppd for several years. No recent cigarette smoking. Does smoke cigars. Rec outpatient pulm vs inpatient pulm and repeat imaging CT in 3- 6 months. #COPD Chronic. No acute exacerbation. Patient is on 2 L of oxygen at night along with BID Symbicort and albuterol PRN. Patient has rxn to formulary - throat pain. Will administer home med instead. #CAD Chronic. Stable. Patient denies chest pain. EKG with no acute ischemic changes. Record request for outpatient cardiology [] continue Lasix 20 mg QD, metoprolol 12.5 mg QD, simvastatin 40 mg PO [] holding ASA in setting of presumed surgery #Perforated gastric ulcer Patient with remote history of perforated gastric ulcer status post laparotomy. He reports having a PEG tube temporarily which has since been removed. No further issues. [] Continue acid suppression - Protonix 40 mg BID, famotidine 20 mg PO. #HLD Chronic. Stable. Continue simvastatin 40 mg p.o. daily #HTN Blood pressure stable. Continue metoprolol 12.5 mg p.o. daily #BPH Chronic. Stable. Continue tamsulosin 0.8 mg p.o. daily. Continue finasteride 5 mg p.o. daily F/E/N -LR at 80 mL/h x 1 L, electrolytes within normal limits, NPO - easy to chew diet at home ProphylaxisSCDs to bilateral lower extremities Codefull per discussion with patient Dispositionadmit to medical (2) Closed right hip fracture: (3) COPD (chronic obstructive pulmonary disease): (4) CAD (coronary artery disease): (5) Perforated gastric ulcer: (6) Hyperlipidemia: (7) Hypertension: (8) BPH (benign prostatic hyperplasia): Admission and Anticipated Discharge Date Admission Date: November 18, 2022 Supervising Physician Co-Signing Physician Notes I personally examined the patient and verified all daniels points of history and exam, discussed case, and agree with decision making with Dr Oconnor Seen postop in PACU. No chest pain or shortness of breath. No problems at all. Nursing notes that he has been doing well. Vitals noted, in general he is awake and alert pleasant no distress. Cardio is regular lungs are quiet but clear no rales rhonchi or wheezes. Breathing unlabored no accessory muscle use good effort. hip fracture -postop and doing well. otherwise as above otherwise as above Subjective Patient is comfortable appearing. NPO for presumed ORIF today. Review of Systems 2 Review of Systems: See HPI Physical Exam Physical Exam: Gen: cachetic uncomfortable appearing elderly male no distress HEENT: AT NC Resp: CTAB no wheezing CV: RRR no m/r/g GI: non-tended Skin: no rashes or bruising noted Psych: appropriate mood and affect Neuro: alert and oriented Results & Data Results & Data Vital Signs (Past 12 Hours) Vital Signs Temp Pulse Resp BP Pulse Ox O2 Del Method O2 Flow Rate 11/18/22 20:50 Nasal Cannula 3 11/18/22 23:00 37.0 C 88 18 132/69 99 Nasal Cannula 3 11/18/22 22:29 93 H 18 96 Nasal Cannula 3 Laboratory Results 11/19/22 07:32 11/19/22 07:32 Resident Activity Tracking Resident Involvement: Resident Care Provided Care Provided: Adult Hospital Medicine
[2022-11-19] MEDS: FLUTICASONE/VILANTEROL 100/25MCG 14 PUFFS/INHALER INH SCH (08:00)
[2022-11-19] MEDS: METOPROLOL SUCC 25MG EXT REL TAB PO SCH (08:01)
[2022-11-19] MEDS: carBAMazepine 200 MG TABLET PO SCH ×3 (08:02→19:31)
[2022-11-19] MEDS: FLUTICASONE PROPIONATE NA SPR 16 GM BTL SCH (08:03)
[2022-11-19] MEDS: PANTOprazole 40 MG in SYRINGE 0 ML IV SCH ×2 (08:05→19:31)
[2022-11-19 08:06] LABS: Hematocrit (blood only) 29.2 % (42.0-52.0); Mean Corpuscular Hemoglobin 34.1 pg (25.0-34.0); Mean Corpuscular Hgb Conc 34.2 g/dL (32.0-36.0); Mean Corpuscular Volume 99.7 fL (80.0-100.0); Mean Platelet Volume 11.1 fL (9.4-12.4); Platelet Count 207 K/uL (130-400); RDW Coefficient of Variation 13.6 % (11.5-14.5); RDW Standard Deviation 49.6 fL (36.4-46.3); Red Blood Count 2.93 M/uL (4.70-6.10)
--- NOTE | 2022-11-19 08:15 | Anesthesiology Consultation ---
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 Medications Home Medications Medication Instructions Recorded Confirmed Last Taken albuterol sulfate 90 mcg/actuation 2 puff inhalation Q4H PRN 11/17/22 11/18/22 Unknown aerosol inhaler Shortness Of Breath aspirin 81 mg tablet,delayed 81 mg PO DAILY 11/17/22 11/18/22 11/17/22 release budesonide-formoterol HFA 160 2 inh inhalation BID 11/17/22 11/18/22 11/17/22 mcg-4.5 mcg/actuation aerosol inhaler (Symbicort) carbamazepine 200 mg tablet 200 mg PO TID 11/17/22 11/18/22 11/17/22 cholecalciferol (vitamin D3) 25 50 mcg PO DAILY 11/17/22 11/18/22 11/17/22 mcg (1,000 unit) tablet famotidine 20 mg tablet 20 mg PO DAILYBB 11/17/22 11/18/22 11/17/22 finasteride 5 mg tablet 5 mg PO DAILY 11/17/22 11/18/22 11/17/22 fluticasone propionate 50 2 spray intranasal DAILY 11/17/22 11/18/22 11/17/22 mcg/actuation nasal spray,suspension folic acid 1 mg tablet 1 mg PO DAILY 11/17/22 11/18/22 11/17/22 furosemide 20 mg tablet 20 mg PO DAILY 11/17/22 11/18/22 11/17/22 metoprolol succinate 25 mg 12.5 mg PO DAILY 11/17/22 11/18/22 11/17/22 tablet,extended release 24 hr oxycodone 5 mg tablet 5 mg PO Q6H PRN Pain 11/17/22 11/18/22 Unknown pantoprazole 40 mg tablet,delayed 40 mg PO BID 11/17/22 11/18/22 11/17/22 release potassium chloride 10 mEq 10 meq PO DAILY 11/17/22 11/18/22 11/17/22 tablet,extended release(part/cryst) (Klor-Con M) simvastatin 20 mg tablet 40 mg PO QPM 11/17/22 11/18/22 11/17/22 tamsulosin 0.4 mg capsule 0.8 mg PO DAILY 11/17/22 11/18/22 11/17/22 tizanidine 4 mg tablet 4 mg PO Q8H PRN MUSCLE SPASMS 11/17/22 11/18/22 Unknown Active Medications Generic Name Dose Route Start Last Admin Trade Name Freq PRN Reason Stop Dose Admin Albuterol 2 puffs 11/18/22 02:29 11/18/22 22:28 Albuterol Hfa 8 Gm Inhaler INH 12/18/22 02:28 2 puffs Q4H PRN Administration Shortness Of Breath Carbamazepine 200 mg 11/18/22 09:00 11/19/22 08:02 Carbamazepine 200 Mg Tablet PO 12/18/22 08:59 200 mg TID SIXTO Administration Famotidine 20 mg 11/18/22 06:30 11/19/22 06:19 Famotidine 20 Mg Tab PO 12/18/22 06:29 20 mg DAILYBB SIXTO Administration Finasteride 5 mg 11/18/22 09:00 11/18/22 09:43 Finasteride 5 Mg Tab PO 12/18/22 08:59 Not Given DAILY SIXTO Fluticasone Propionate 2 sprays 11/18/22 09:00 11/19/22 08:03 Fluticasone Propionate Na Spr 16 Gm Btl NA 12/18/22 08:59 2 sprays DAILY SIXTO Administration Fluticasone/Vilanterol 1 puffs 11/18/22 09:00 11/19/22 08:00 Fluticasone/Vilanterol 100/25mcg 14 Puffs/Inhaler INH 12/18/22 08:59 1 puf fs DAILY SIXTO Administration Folic Acid 1 mg 11/18/22 09:00 11/18/22 09:43 Folic Acid 1 Mg Tab PO 12/18/22 08:59 Not Given DAILY SIXTO Acetaminophen 1,000 mg in 100 mls @ 400 mls/hr 11/18/22 11:30 11/19/22 04:55 Ofirmev IV 11/21/22 11:29 Infused Q8H SIXTO Infusion Pantoprazole Sodium 40 mg/ 10 mls @ 5 mls/min 11/18/22 21:00 11/19/22 08:05 Syringe IV 12/18/22 20:59 5 mls/min BID SIXTO Administration Metoprolol Succinate 12.5 mg 11/18/22 09:00 11/19/22 08:01 Metoprolol Succ 25mg Ext Rel Tab PO 12/18/22 08:59 12.5 mg DAILY SIXTO Administration Morphine Sulfate 2 mg 11/18/22 08:23 11/18/22 17:44 Morphine Sulfate 2 Mg/Ml Carp IV 12/02/22 02:28 2 mg Q3H PRN Administration Pain (1,2,3,4,5) & Pre PT Morphine Sulfate 4 mg 11/18/22 08:24 11/18/22 10:30 Morphine Sulfate 4 Mg/Ml 1 Ml Carp\\Vial IV 12/02/22 02:28 4 mg Q3H PRN Administration Pain (6,7,8,9,10) Ondansetron HCl 4 mg 11/18/22 08:37 11/18/22 09:57 Ondansetron Inj 2 Mg/Ml 2 Ml Vial IV 12/18/22 08:44 4 mg Q6H PRN Administration Nausea And Vomiting Pseudoephedrine HCl 30 mg 11/18/22 20:25 11/18/22 22:12 Pseudoephedrine Hcl 30 Mg Tab PO 12/18/22 20:24 30 mg Q6H PRN Administration Congestion Senna/Docusate Sodium 2 tab 11/18/22 21:00 11/18/22 20:52 Docusate Sodium/Senna 50/8.6mg Tab PO 12/18/22 20:59 2 tab HS SIXTO Administration Simvastatin 40 mg 11/18/22 21:00 11/18/22 20:53 Simvastatin 40 Mg Tab PO 12/18/22 20:59 40 mg QPM SIXTO Administration Tamsulosin HCl 0.8 mg 11/18/22 09:00 11/18/22 09:44 Tamsulosin Hcl 0.4 Mg Cap PO 12/18/22 08:59 Not Given DAILY SIXTO NPO Date Last Intake of Fluids: 11/18/22 Time Last Intake of Fluids: 23:00 Past Medical History Medical History BPH (benign prostatic hyperplasia) CAD (coronary artery disease) COPD (chronic obstructive pulmonary disease) GERD (gastroesophageal reflux disease) Status post laparotomy with repair Hyperlipidemia Hypertension ICD (implantable cardioverter-defibrillator) in place Perforated gastric ulcer Past Family History Family History Other Family history non-contributory Past Surgical History Surgical History History of implantable cardioverter-defibrillator (ICD) placement History of laparotomy Social History Smoking Status: Current every day smoker tobacco type: cigars Smoking cigarettes per day: 3-4 Hx Alcohol Use: No Hx Substance Use: No Physical Exam Vital Signs Last Vital Signs Temp 97.7 F 11/19/22 07:18 Pulse 118 H 11/19/22 07:18 Resp 22 11/19/22 07:18 BP 186/82 H 11/19/22 07:18 Pulse Ox 100 11/19/22 07:18 O2 Del Method Nasal Cannula 11/19/22 07:18 O2 Flow Rate 3 11/19/22 07:18 Testing Laboratory Results 11/19/22 07:32 PT 10.6 Seconds (9.0-12.0) 11/18/22 00:05 INR 1.0 (0.9-1.1) 11/18/22 00:05 APTT 24.2 Seconds (21.0-31.0) 11/18/22 00:05 Blood Type B Positive 11/18/22 06:50 Antibody Screen NEGATIVE 11/18/22 06:50 Electrocardiogram Date: 11/17/22 Poor data quality, interpretation may be adversely affected Ventricular-paced rhythm, rate 103 bpm Abnormal ECG No previous ECGs available Confirmed by Rachid Lopez ([id number]) on 11/18/2022 3:03:11 PM Chest X-Ray Date: 11/18/22 IMPRESSION: 1. Cardiomegaly, emphysema, and cardiac pacemaker without radiographic evidence of congestive failure. 2. No airspace consolidation or large pleural effusion is identified. 3. The suspicious opacity at the right apex seen on today's CT scan of the cervical spine is not appreciated by x-ray. Nonemergent follow-up with a dedicated chest CT is recommended for further evaluation.
[2022-11-19 08:24] LABS: BUN Creatinine Ratio 24.1 (10-20); Calcium 8.7 mg/dl (8.6-10.3); Creatinine Clr Calc Pharmacy 51.2 ml/min; Est GFR (African American) 96.2 ml/min
[2022-11-19] MEDS: FINASTERIDE 5 MG TAB PO SCH (09:09)
[2022-11-19] MEDS: FOLIC ACID 1 MG TAB PO SCH (09:09)
[2022-11-19] MEDS: TAMSULOSIN HCL 0.4 MG CAP PO SCH (09:09)
[2022-11-19] MEDS: MoRPHine SULFATE 2 MG/ML CARP IV PRN ×2 (10:14→10:40)
--- NOTE | 2022-11-19 12:18 | Orthopedic Progress Note ---
Date of Service November 19, 2022 Assessment & Plan (1) Fracture, intertrochanteric, right femur: NPO. To OR today with Dr. Ferguson or Dr. Coyne for IM nailing of the right hip/femur. 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 Consent obtained. Subjective . 82 year old patient with right intertroch fx. having fairly signifcant hip pain. No other complaints. Review of Systems All systems reviewed & are unremarkable except as noted in HPI & below. Physical Exam .alert and oriented. NAD right leg: able to move toes appropriately. NVI. No motion of hip at this time. Results & Data Results & Data Laboratory Results . Diagnostic Findings . PG Care Time/CCT Total # of Minutes Spent Total Time Spent with Patient: Total time spent is greater than 50% in coordination of care (as documented) at patient's floor/unit and/or counseling patient: Coding Level of Care Code 65036 Post Operative Follow-Up Diagnoses Fracture, intertrochanteric, right femur S72.141A
[2022-11-19] MEDS ORDERED: ONDANSETRON INJ 2 MG/ML 2 ML VIAL IV PRN (13:01)
[2022-11-19] MEDS ORDERED: fentaNYL citrate PF 100 MCG/2 ML VIAL IV PRN (13:01)
[2022-11-19] MEDS ORDERED: ePHEDrine sulfate 50 MG/ML AMP IV PRN (13:01)
[2022-11-19] MEDS ORDERED: ALBUTEROL 0.083% NEBU SOLN 3 ML VIAL NEB STA (13:01)
[2022-11-19] MEDS ORDERED: ATROPINE SULFATE 0.1 MG/ML 10ML SYR IV PRN (13:01)
[2022-11-19] MEDS ORDERED: BUPIVACAINE 0.5 % 5 MG/1 ML PF 10ML VIAL ONE (13:41)
[2022-11-19] MEDS ORDERED: PROPOFOL IV EMULSION 10 MG/ML 20 ML VIAL IV ONE (14:03)
[2022-11-19] MEDS ORDERED: LIDOCAINE 2% MPF LOCAL 5 ML VIAL ONE (14:03)
[2022-11-19] MEDS ORDERED: fentaNYL citrate PF 100 MCG/2 ML VIAL ONE (14:03)
[2022-11-19] MEDS ORDERED: ceFAZolin 2,000 MG/15 ML IV PUSH IV ONE (14:11)
--- NOTE | 2022-11-19 14:12 | History & Physical Bridge Note ---
Date of Service November 19, 2022 History & Physical Bridge Note I have examined the patient, reviewed the History & Physical and in the interval since the performance of the History & Physical I have noted the following changes of clinical significance: no changes noted. I personally discussed the risks and benefits and recommendations for surgery with the patient at the time of initial consultation, and again today in the preop area. Agreeable to proceed.
[2022-11-19] MEDS ORDERED: ceFAZolin 2000MG 2,000 MG/15 ML SYR IV SCH (15:02)
[2022-11-19] MEDS ORDERED: BUPIVACAINE/EPINEPHRINE 0.5% MPF 1:200,000 30 ML VIAL ONE (15:21)
[2022-11-19] MEDS ORDERED: KETAMINE 50 MG/5 ML SYRINGE ONE (15:21)
[2022-11-19] MEDS ORDERED: TRANEXAMIC ACID / 0.7% NACL 1000MG/100ML BAG IV ONE (15:22)
[2022-11-19] MEDS ORDERED: ceFAZolin 330 MG/ML 1 GM VIAL ONE (15:48)
[2022-11-19] MEDS ORDERED: SYMBICORT~ORDER AWAITING ACTION SCH (16:00)
--- NOTE | 2022-11-19 16:36 | Anesthesiology Progress Note ---
Date of Service November 19, 2022 Anesthesia Post Procedure Vital Signs Vital Signs: Temp Pulse Pulse Resp BP Pulse Ox Pulse Ox 11/19/22 13:13 106 H 20 99 11/19/22 12:46 37.2 C 101 H 24 142/84 H 100 11/19/22 08:00 11/19/22 10:00 96 11/19/22 07:18 36.5 C 118 H 22 186/82 H 100 11/18/22 20:50 11/18/22 23:00 37.0 C 88 18 132/69 99 11/18/22 22:29 93 H 18 96 O2 Del Method O2 Del Method O2 Flow Rate O2 Flow Rate 11/19/22 13:13 Nasal Cannula 2 11/19/22 12:46 Nasal Cannula 2 11/19/22 08:00 Nasal Cannula 2 11/19/22 10:00 Nasal Cannula 2 11/19/22 07:18 Nasal Cannula 3 11/18/22 20:50 Nasal Cannula 3 11/18/22 23:00 Nasal Cannula 3 11/18/22 22:29 Nasal Cannula 3 Pain Intensity Right Hip: Pain Intensity: 4 Transfer of Care Handoff Completed per policy Notes Mental Status: alert / awake / arousable Patient Amnestic to Procedure: Yes Nausea / Vomiting: adequately controlled Pain: adequately controlled Airway Patency, RR, SpO2: stable & adequate BP & HR: stable & adequate Hydration State: stable & adequate Neuraxial Anesthesia: was administered and sensory block is resolving Anesthetic Complications: no major complications apparent and Pt Satisfied with anesthetic care
--- NOTE | 2022-11-19 16:48 | Operative Report ---
PG Post Operative Report Pre & Post Diagnosis Operation Date: 11/19/22 07:00 Pre-Op Diagnosis: Right displaced intertrochanteric hip Fracture Post-Op Diagnosis: Right intertrochanteric hip Fracture I identified the patient and participated in the time-out.: Yes Procedure Operation Date: 11/19/22 07:00 Actual Procedures p Closed reduction and cephalomedullary nailing of Right intertrochanteric femur fracture (Right) - Benjamín Coyne MD Surgeon Benjamín Coyne MD Stull Hewer Tate Hare PA-C Estimated Blood Loss 100 Findings See Below Comminuted intertrochanteric fracture with subtrochanteric extension, acceptably reduced in a closed manner. All Synthes implants: 11 mm/130 degree titanium cannulated trochanteric fixation nail of 400 mm length. 11.0 mm titanium helical blade of 85 mm length. Distal interlock screw measuring 48 mm. Specimens none Anesthesia Type MAC Spinal Regional Complications none Disposition Accompanied Patient To Recovery: No Disposition: Surgical ICU Indications 82-year-old male admitted to the hospital with a displaced intertrochanteric femur fracture after fall at home down some stairs. He was counseled on treatment options and my recommendation for surgical stabilization. We discussed the risks and benefits in detail. Appropriate preoperative clearances with cardiology involved were obtained through the medical team. Patient and his family decided proceed with surgery, and informed consent was obtained in the hospital. Description of Procedure On the day of surgery should be was greeted in the preoperative holding area and the informed consent was reviewed and confirmed. The surgical site was then identified by the patient and signed by myself. The patient was taken to the operating placed by the OR table and anesthesia was induced. The patient is then positioned on the fracture table. All manish prominences were well padded. The operative foot was placed in the fracture boot with abundant padding. The well leg was secured. We then positioned the lower extremities in a scissor fashion with a non-op leg flexed down to allow visualization with fluoroscopy which was confirmed before we prepped and draped. Surgical timeout was called and verified by all present. Antibiotics were infused, and equipment was available and functional. The procedure was initiated with a closed reduction maneuvers. Gentle in-line traction pulled the fracture out to length. The limb was then internally rotated to reduce the proximal femur. Flexion and adduction were used to adjust the reduction and allow access to the greater trochanter. We had adequate reduction prior to prepping and draping. The leg was then prepped and draped in usual sterile fashion. Surgical timeout was reconfirmed. We initiated the surgical internal fixation portion with finding the start point with the tip of the greater trochanter. Fluoroscopic guidance was used and a small poke hole was established. The start point was confirmed on fluoroscopy in AP and lateral planes and the pin was advanced using a mallet. An incision was made about the pin to allow access for the reamers. The pin was then advanced past the lesser trochanter, and its position was confirmed using AP and lateral fluoroscopy. Using the protective sleeve, the opening reamer was advanced under power with fluoroscopic guidance over the guidepin. It was advanced slowly and we did ream out some lateral bone of the trochanter. The opening reamer drill had some dark blood fragments on it. The canal was thoroughly irrigated with Ancef antibiotic saline solution. The reduction wire was then advanced down the distal femur to the level of the superior pole of the patella. Measurement was taken from the tip of the trochanter down to the end of the guidewire, and the 400 was selected. We then began reaming. Given the preoperative canal measurements, the 12.5 reamer was selected and sent down under fluoroscopic guidance. There was appropriate chatter. An 11 mm nail was loaded onto the jig and advanced manually down the canal, while ensuring maintenance of the reduction on fluoroscopy. We then tapped it down into place until we achieve the good position for our cephalo- medullary screw. Traction was released. The cannula was placed on the jig to allow positioning of the cephalo-medullary screw. The skin incision was made in the appropriate spot. The jig cannulas were then placed against the lateral cortex. The cephalo-medullary screw guidepin was advanced towards the femoral head. The center-center position was confirmed on fluoroscopy in AP and lateral planes. The length of the screw was measured off the guide. The helical blade screw was then opened on the back ta ble and prepared on the screwdriver. The lateral cortical opening drill, followed by the triple drill reamer for the helical blade was advanced under fluoroscopic guidance. The helical blade was advanced over the guidepin to appropriate position. The helical blade was locked in rotation and then the traction was taken off. Fluoroscopy confirmed maintenance of reduction and adequate position of the implant. The compression sleeve was then advanced against the lateral femur to improve the trochanteric-shaft reduction and compress the intertrochanteric region fracture. Attention was then directed distally to perform the interlock screws in using perfect seneca technique. I encountered abundant amount of serous fluid down in the distal femur region. Bone quality was good. 1 interlock screw was placed with a 5 mm diameter. The length was measured using a depth gauge, with fluoroscopic guidance. This completed the fixation. This completed the fixation of the fracture. Fluoroscopy was used in both AP and lateral planes to evaluate the entirety of the fracture and implant. Reduction and implant positions were acceptable. The wounds were then thoroughly irrigated with bulb syringe and normal saline. The deep fascial layer was approximated with 0 Vicryl suture. The dermal layer was approximated using 2-0 Vicryl suture. The final skin closure was completed with kymberly. Wounds were dressed with sterile Xeroform, sterile gauze, and Tegaderms over ABDs. The patient tolerated procedure well, awoke from anesthesia without complication, and transferred to the PACU in stable condition. Disposition: The patient be weightbearing as tolerated. I recommended routine DVT prophylaxis consisting of daily aspirin, if tolerable. DVT prophylaxis should last 6 weeks, before returning to his chronic 81 mg aspirin therapy.. 24 hours of antibiotic prophylaxis should be continued. Physician speech pathologist assistant attestation: Tate Hare PA-C was present and scrubbed for the duration of the case. He was essential to prepping/draping, patient positioning, retraction, and assistance with wound closure. I attest to the content of the Intraoperative Record and any orders documented therein. Any exceptions are noted below.
--- NOTE | 2022-11-19 17:00 | Fluoroscopy Report ---
INTRAOPERATIVE RADIOGRAPHS CLINICAL HISTORY: Open reduction internal fixation of the right proximal femur. Fluoro time: 91 seconds Exposure: 13.25 mGy FINDINGS: 8 spot fluoroscopic views of the right hip are correlated with radiographs dated 11/18/2022. Intertrochanteric and intramedullary nails have been placed transfixing an intertrochanteric/subtroc hanteric fracture of the right proximal femur. Near-anatomic alignment is restored. A single cortical lag screw transfixes the distal end of the intramedullary nail. The orthopedic hardware appears inta ct. IMPRESSION: Intraoperative images from open reduction and internal fixation of a right proximal femor al fracture as above. Electronically signed by: Lamin Aragon M.D. 11/19/2022 4:59 PM
--- NOTE | 2022-11-19 17:07 | XRay Report ---
XR femur RT 2V routine HISTORY: 82 years-old Male Post op acute fracture of the intertrochanteric right femur COMPARISON: 11/18/2022 TECHNIQUE: 2 views of the right femur FINDINGS: Arterial calcifications. Mild osteoarthritis of the right hip. Status post placement of an intratroch anteric nail with medullary maxwell fixating the acute and comminuted intertrochanteric femoral fracture. There is improved alignment. Skin kymberly are noted along with expected postoperative soft tissue sw elling with deep tissue air. Superficial femoral arterial/popliteal stent grafts. IMPRESSION: Improved alignment of the acute intertrochanteric fracture of the right femur status post ORIF. ACT 112: Negative or not required by law. The above report was generated using voice recognition software. It may contain grammatical, syntax o r spelling errors. Electronically signed by: Charil Harman M.D. 11/19/2022 5:06 PM
[2022-11-19] MEDS ORDERED: oxyCODONE HCL IR 5 MG TAB (IMMEDIATE RELEASE) PO PRN (17:53)
--- NOTE | 2022-11-19 19:17 | Billing Data ---
Date of Service November 19, 2022 Coding Level of Care Code 93066 SUB INP/OBS CARE MIN
[2022-11-19] MEDS: DOCUSATE SODIUM/SENNA 50/8.6MG TAB PO SCH (19:31)
[2022-11-19] MEDS: BUDESONIDE/FORMOTEROL FUMARATE 160/4.5 60 PUFFS/INHALER INH SCH (19:31)
[2022-11-19] MEDS: oxyCODONE HCL IR 5 MG TAB (IMMEDIATE RELEASE) PO PRN (19:32)
[2022-11-19] MEDS: SIMVASTATIN 40 MG TAB PO SCH (19:33)
[2022-11-19] MEDS: ACETAMINOPHEN 500 MG TAB PO PRN (22:07)
[2022-11-19] MEDS: ceFAZolin 2000MG 2,000 MG/15 ML SYR IV SCH (22:08)
[2022-11-20] MEDS: oxyCODONE HCL IR 5 MG TAB (IMMEDIATE RELEASE) PO PRN ×2 (03:46→08:41)
[2022-11-20] MEDS: FAMOTIDINE 20 MG TAB PO SCH (05:58)
[2022-11-20] MEDS: ceFAZolin 2000MG 2,000 MG/15 ML SYR IV SCH (05:58)
[2022-11-20] MEDS: ACETAMINOPHEN 500 MG TAB PO PRN (06:16)
--- NOTE | 2022-11-20 07:12 | Hospitalist Progress Note ---
Date of Service November 20, 2022 Assessment & Plan (1) Fall: Plan: 82 y/o male with a PMHx of COPD on 2L HS, HTN, HLD, GERD - perforated gastric ulcer in distant past, smoking history, BPH, and CAD found to have a right hip fracture after a fall admitted for pain control and surgery now POD1 ORIF right hip HDS with suboptimal pain control. #Fall #Right hip fx Fell from 3-4 step height - head, right shoulder, and right hip trauma. CT head and neck clear. Patient found to have a neurovascularly intact intertrochanteric right hip fracture. Ortho on board now s/p ORIF on 11/19. [] ortho on board [] cards on board - COPD on HS O2, CAD with prev stent placement, AICD in place [] fall precautions [] neuro checks [] NPO - easy to chew diet at home [] Pain regimen - dillon Tylenol, toradol PRN, oxy 10, morphine 2mg #Multiple subsolid nodules 13 mm and 10 mm subsolid nodules found in the right lung. Pathologically indeterminant. There is concern for adenomatoid lesions. Patient has a distant smoking history 0.5-1.5 ppd for several years. No recent cigarette smoking. Does smoke cigars. Rec outpatient pulm vs inpatient pulm and repeat imaging CT in 3- 6 months. #COPD Chronic. No acute exacerbation. Patient is on 2 L of oxygen at night along with BID Symbicort and albuterol PRN. Patient has rxn to formulary - throat pain. Will administer home med instead. #CAD Chronic. Stable. Patient denies chest pain. EKG with no acute ischemic changes. Record request for outpatient cardiology [] continue Lasix 20 mg QD, metoprolol 12.5 mg QD, simvastatin 40 mg PO [] holding ASA in setting of presumed surgery #Perforated gastric ulcer Patient with remote history of perforated gastric ulcer status post laparotomy. He reports having a PEG tube temporarily which has since been removed. No further issues. [] Continue acid suppression - Protonix 40 mg BID, famotidine 20 mg PO. #HLD Chronic. Stable. Continue simvastatin 40 mg p.o. daily #HTN Blood pressure stable. Continue metoprolol 12.5 mg p.o. daily #BPH Chronic. Stable. Continue tamsulosin 0.8 mg p.o. daily. Continue finasteride 5 mg p.o. daily F/E/N -LR at 80 mL/h x 1 L, electrolytes within normal limits, NPO - easy to chew diet at home ProphylaxisSCDs to bilateral lower extremities Codefull per discussion with patient Dispositionadmit to medical (2) Closed right hip fracture: (3) COPD (chronic obstructive pulmonary disease): (4) CAD (coronary artery disease): (5) Perforated gastric ulcer: (6) Hyperlipidemia: (7) Hypertension: (8) BPH (benign prostatic hyperplasia): Admission and Anticipated Discharge Date Admission Date: November 18, 2022 Supervising Physician Co-Signing Physician Notes I personally examined the patient and verified all daniels points of history and exam, discussed case, and agree with decision making with Dr Oconnor some uncontrolled pain at hip. No chest pain or shortness of breath. seen twice due to nursing concerns about not looking good - about the same when i see him the second time. Vitals noted, BP is a little bit soft, in general he is awake and alert pleasant no distress. Cardio is regular lungs are quiet but clear no rales rhonchi or wheezes. Breathing unlabored no accessory muscle use good effort. hip fracture -now postop, have to assume osteoporotic fracture, acute blood loss anemia not unexpected for the fracture/surgerycausing very mild hypotensionanticipate improvement with IV fluids, follow hemoglobinlow threshold to transfuse if his hemodynamics do not stabilize, but I suspect they will. As it relates to mild confusionseems to be fairly oriented overalldoes seem to have mild deliriumnot unexpected given his overall circumstances. Right now reorientation/supportive care. VBG to evaluate for any hypercapnia simply due to his baseline lung disease. At the same time, his COPD and coronary disease appear to be stable. DVT prophylaxis with aspirin per orthopedics otherwise as above Subjective Patient notes poor control of his pain. Otherwise no complaints - no SOB, CP, fevers, or chills Review of Systems Review of Systems: See HPI Physical Exam Physical Exam: Gen: cachetic uncomfortable appearing elderly male no distress HEENT: AT NC Resp: CTAB diffuse wheezing CV: RRR no m/r/g GI: non-tender Skin: no rashes or bruising noted Psych: appropriate mood and affect Neuro: alert and oriented Results & Data Results & Data Vital Signs (Past 12 Hours) Vital Signs Temp Pulse Resp BP BP Pulse Ox O2 Del Method 11/20/22 07:09 37.2 C 88 16 152/70 H 99 Nasal Cannula 11/20/22 04:20 37 C 89 20 152/76 H 97 Room Air 11/19/22 22:24 37 C 95 H 20 123/70 95 Room Air 11/19/22 19:15 Nasal Cannula 11/19/22 19:20 36.8 C 89 18 101/57 L 100 Nasal Cannula O2 Flow Rate 11/20/22 07:09 2 11/20/22 04:20 11/19/22 22:24 11/19/22 19:15 2 11/19/22 19:20 2 Laboratory Results 11/20/22 08:24 11/20/22 08:24 Diagnostic Findings Hip X-Ray 11/19/22 14:30 INTRAOPERATIVE RADIOGRAPHS CLINICAL HISTORY: Open reduction internal fixation of the right proximal femur. Fluoro time: 91 seconds Exposure: 13.25 mGy FINDINGS: 8 spot fluoroscopic views of the right hip are correlated with radiographs dated 11/18/2022. Intertrochanteric and intramedullary nails have been placed transfixing an intertrochanteric/subtrochanteric fracture of the ri ght proximal femur. Near-anatomic alignment is restored. A single cortical lag screw transfixes the distal end of the intramedullary nail. The orthopedic hardware appears intact. IMPRESSION: Intraoperative images from open reduction and internal fixation of a right proximal femoral fracture as above. Electronically signed by: Lamin Aragon M.D. 11/19/2022 4:59 PM Femur X-Ray 11/19/22 16:35 XR femur RT 2V routine HISTORY: 82 years-old Male Post op acute fracture of the intertrochanteric right femur COMPARISON: 11/18/2022 TECHNIQUE: 2 views of the right femur FINDINGS: Arterial calcifications. Mild osteoarthritis of the right hip. Status post plac ement of an intratrochanteric nail with medullary maxwell fixating the acute and comminuted intertrochanteric femoral fracture. There is improved alignment. Skin kymberly are noted along with expected postoperative soft tissue swelling with deep tissue air. Superficial femoral arterial/popliteal stent grafts. IMPRESSION: Improved alignment of the acute intertrochanteric fracture of the right femur status post ORIF. ACT 112: Negative or not required by law. The above report was generated using voice recognition software. It may contain grammatical, syntax or spelling errors. Electronically signed by: Charli Harman M.D. 11/19/2022 5:06 PM Resident Activity Tracking Resident Involvement: Resident Care Provided Care Provided: Adult [facility]
[2022-11-20] MEDS: BUDESONIDE/FORMOTEROL FUMARATE 160/4.5 60 PUFFS/INHALER INH SCH ×2 (08:34→20:57)
[2022-11-20] MEDS: FLUTICASONE PROPIONATE NA SPR 16 GM BTL SCH (08:35)
[2022-11-20] MEDS: carBAMazepine 200 MG TABLET PO SCH ×3 (08:35→20:23)
[2022-11-20] MEDS: TAMSULOSIN HCL 0.4 MG CAP PO SCH (08:36)
[2022-11-20] MEDS: FOLIC ACID 1 MG TAB PO SCH (08:36)
[2022-11-20] MEDS: ASPIRIN 325 MG ECTAB PO SCH (08:36)
[2022-11-20] MEDS: CHOLECALCIFEROL 1,000 UNITS 25 MCG TAB PO SCH (08:36)
[2022-11-20] MEDS: FINASTERIDE 5 MG TAB PO SCH (08:36)
[2022-11-20] MEDS: METOPROLOL SUCC 25MG EXT REL TAB PO SCH (08:36)
[2022-11-20] MEDS: PANTOprazole 40 MG in SYRINGE 0 ML IV SCH ×2 (08:37→20:23)
[2022-11-20 08:44] LABS: Basophils # (auto) 0.03 K/uL (0-0.2); Basophils % (auto) 0.3 %; Eosinophils # (auto) 0.07 K/uL (0-0.50); Eosinophils % (auto) 0.6 %; Hematocrit (blood only) 25.3 % (42.0-52.0); Hemoglobin 8.6 g/dl (14.0-18.0); Immature Granulocytes # (auto) 0.08 K/uL (0.01-0.20); Immature Granulocytes % (auto) 0.7 %; Lymphocytes # (auto) 1.26 K/uL (1.2-3.4); Lymphocytes % (auto) 11.4 %; Mean Corpuscular Hemoglobin 34.5 pg (25.0-34.0); Mean Corpuscular Volume 101.6 fL (80.0-100.0); Mean Platelet Volume 11.3 fL (9.4-12.4); Monocytes # (auto) 1.22 K/uL (0.11-0.59); Monocytes % (auto) 11.1 %; Neutrophils # (auto) 8.37 K/uL (1.40-6.50); Neutrophils % (auto) 75.9 %; Platelet Count 177 K/uL (130-400); RDW Coefficient of Variation 13.4 % (11.5-14.5); RDW Standard Deviation 49.5 fL (36.4-46.3); Red Blood Count 2.49 M/uL (4.70-6.10); White Blood Count 11.03 K/ul (4.8-10.8)
[2022-11-20 09:37] LABS: Albumin Globulin Ratio 1.2 (0.9-2); Albumin Level 3.2 gm/dl (3.4-5.0); BUN Creatinine Ratio 30.9 (10-20); Bilirubin,Total 0.5 mg/dl (0.2-1.0); Calcium 8.5 mg/dl (8.6-10.3); Creatinine Clr Calc Pharmacy 49.9 ml/min; Est GFR (African American) 95.3 ml/min; Est GFR (Non-African American) 82.2 ml/min; Globulin 2.6 gm/dl (2.5-4.0); Magnesium 2.1 mg/dl (1.7-2.4); Phosphorus 3.7 mg/dl (2.5-4.9); Potassium 3.7 mmol/L (3.5-5.1); Total Protein 5.8 gm/dl (6.0-8.3)
--- NOTE | 2022-11-20 10:02 | Orthopedic Progress Note ---
Date of Service November 20, 2022 Assessment & Plan (1) Fracture, intertrochanteric, right femur: (2) History of hip surgery: Plan POD1 s/p R hip long cephalomedullary nail for intertrochanteric fracture with subtrochanteric extension. - PT/OT: WBAT and ROMAT with walker - Finish 24hr periop abx ppx - Reinforce dressing prn - change POD3 - DVT ppx: Recommend full dose daily ASA - Pain mgt per primary team Dispo: Per PT/OT recs. Expect need for SNF vs acute rehab. Tigertext myself or Tate Hare PA-C with questions Subjective Hip pain persists, though less aggravating than before surgery. Stood up with PT. Overall, pleased. Smith lightheaded when standing. Review of Systems All systems reviewed & are unremarkable except as noted in HPI & below. Physical Exam RLE: dressings c/d/i. DNVI. equal leg lengths and rotation Constitutional WD/WN, vitals as above no acute distress and not intoxicated appearing Respiratory normal respiratory effort; no labored breathing Cardiovascular Extremities: normal capillary refill Results & Data Results & Data Laboratory Results Laboratory Tests 11/20/22 08:24 Hgb 8.6 L Hct 25.3 L Diagnostic Findings . PG Care Time/CCT Total # of Minutes Spent Total Time Spent with Patient: Total time spent is greater than 50% in coordination of care (as documented) at patient's floor/unit and/or counseling patient: Coding Level of Care Code 83164 Post Operative Follow-Up Diagnoses Fracture, intertrochanteric, right femur S72.141A History of hip surgery Z98.890
[2022-11-20] MEDS ORDERED: MoRPHine SULFATE 2 MG/ML CARP IV PRN (11:14)
[2022-11-20] MEDS: ALBUTEROL HFA 8 GM INHALER INH PRN (11:27)
[2022-11-20] MEDS: ACETAMINOPHEN 500 MG TAB PO SCH ×2 (11:49→21:24)
[2022-11-20] MEDS: POLYETHYLENE (MIRALAX) 17 GM PACK PO SCH (13:07)
[2022-11-20 14:49] LABS: Base Excess VBG 4.8 mEq/L; HCO3 VBG 30 mmol/L; Hematocrit (blood only) 23.7 % (42.0-52.0); Mean Corpuscular Hemoglobin 34.3 pg (25.0-34.0); Mean Corpuscular Hgb Conc 33.8 g/dL (32.0-36.0); Mean Corpuscular Volume 101.7 fL (80.0-100.0); Mean Platelet Volume 11.2 fL (9.4-12.4); Oxygen Saturation VBG < 60.0 %; PCO2 VBG 46 mmHg (38-50); PO2 VBG 19 mmHg; Platelet Count 168 K/uL (130-400); RDW Coefficient of Variation 13.5 % (11.5-14.5); RDW Standard Deviation 50.5 fL (36.4-46.3); Red Blood Count 2.33 M/uL (4.70-6.10); White Blood Count 10.06 K/ul (4.8-10.8); pH VBG 7.42 (7.36-7.41)
[2022-11-20 15:23] LABS: Calcium 8.4 mg/dl (8.6-10.3)
[2022-11-20] MEDS ORDERED: LACTATED RINGER'S 1,000 ML IV ONE (15:24)
[2022-11-20 15:28] LABS: BUN Creatinine Ratio 33.7 (10-20); Creatinine Clr Calc Pharmacy 41.3 ml/min; Est GFR (African American) 82.3 ml/min
[2022-11-20 15:40] LABS: Potassium 3.8 mmol/L (3.5-5.1)
--- NOTE | 2022-11-20 18:14 | Billing Data ---
Date of Service November 20, 2022 Coding Level of Care Code 75788 SUB INP/OBS CARE MIN
[2022-11-20] MEDS: SIMVASTATIN 40 MG TAB PO SCH (20:22)
[2022-11-20] MEDS: KETOROLAC TROMETHAMINE 10 MG TABLET PO PRN (20:22)
[2022-11-20] MEDS: DOCUSATE SODIUM/SENNA 50/8.6MG TAB PO SCH (20:24)
[2022-11-21] MEDS: FAMOTIDINE 20 MG TAB PO SCH (05:27)
[2022-11-21] MEDS: KETOROLAC TROMETHAMINE 10 MG TABLET PO PRN ×3 (05:27→21:23)
[2022-11-21] MEDS: ACETAMINOPHEN 500 MG TAB PO SCH ×3 (05:27→21:24)
[2022-11-21 07:04] LABS: Hematocrit (blood only) 20.7 % (42.0-52.0); Hemoglobin 7.1 g/dl (14.0-18.0); Mean Corpuscular Hemoglobin 34.6 pg (25.0-34.0); Mean Corpuscular Hgb Conc 34.3 g/dL (32.0-36.0); Mean Platelet Volume 11.9 fL (9.4-12.4); Platelet Count 167 K/uL (130-400); RDW Coefficient of Variation 13.4 % (11.5-14.5); Red Blood Count 2.05 M/uL (4.70-6.10); White Blood Count 7.78 K/ul (4.8-10.8)
[2022-11-21] MEDS ORDERED: SODIUM CHLORIDE 0.9% 250 ML IV PRN (07:15)
[2022-11-21 07:28] LABS: Albumin Globulin Ratio 1.1 (0.9-2); Albumin Level 2.8 gm/dl (3.4-5.0); BUN Creatinine Ratio 42.1 (10-20); Bilirubin,Total 0.6 mg/dl (0.2-1.0); Calcium 8.1 mg/dl (8.6-10.3); Creatinine Clr Calc Pharmacy 53.2 ml/min; Est GFR (African American) 97.8 ml/min; Est GFR (Non-African American) 84.4 ml/min; Globulin 2.6 gm/dl (2.5-4.0); Magnesium 2.2 mg/dl (1.7-2.4); Phosphorus 3.1 mg/dl (2.5-4.9); Potassium 3.6 mmol/L (3.5-5.1); Total Protein 5.4 gm/dl (6.0-8.3)
--- NOTE | 2022-11-21 07:54 | Hospitalist Progress Note ---
Date of Service November 21, 2022 Assessment & Plan (1) Fall: Plan: 82 y/o male with a PMHx of COPD on 2L HS, CAD - prev stent placement AICD in place, HTN, HLD, GERD - perforated gastric ulcer in distant past, smoking history, BPH, and CAD found to have a right hip fracture after a fall admitted for pain control and surgery now POD2 ORIF right hip with intermittent hypotension and downtrending hemoglobin. #Fall #Right hip fx #Blood loss anemia Fell from 3-4 step height - head, right shoulder, and right hip trauma. CT head and neck clear. Patient found to have a neurovascularly intact intertrochanteric right hip fracture. Cards cleared for procedure. Ortho on board now s/p ORIF on 11/19. Patient hemoglobin down trending 7.1 this AM. Patient has had several episodes of hypotension. Would transfuse 1 unit PRBCs and recheck H&H this afternoon. [] fall precautions [] neuro checks [] Pain regimen - dillon Tylenol, PRN: toradol, oxy 10, morphine 2mg [] 1 unit PRBCs [] afternoon H&H #Multiple subsolid nodules 13 mm and 10 mm subsolid nodules found in the right lung. Pathologically indeterminant. There is concern for adenomatoid lesions. Patient has a distant smoking history 0.5-1.5 ppd for several years. No recent cigarette smoking. Does smoke cigars. Rec outpatient pulm vs inpatient pulm and repeat imaging CT in 3- 6 months. #COPD Chronic. No acute exacerbation. Patient is on 2 L of oxygen at night along with BID Symbicort and albuterol PRN. Patient has rxn to formulary - throat pain. Will administer home med instead. #CAD Chronic. Stable. Patient denies chest pain. EKG with no acute ischemic changes. Record request for outpatient cardiology [] continue Lasix 20 mg QD, metoprolol 12.5 mg QD, simvastatin 40 mg PO [] holding ASA in setting of presumed surgery #Perforated gastric ulcer Patient with remote history of perforated gastric ulcer status post laparotomy. He reports having a PEG tube temporarily which has since been removed. No f urther issues. [] Continue acid suppression - Protonix 40 mg BID, famotidine 20 mg PO. #HLD Chronic. Stable. Continue simvastatin 40 mg p.o. daily #HTN Blood pressure stable. Continue metoprolol 12.5 mg p.o. daily #BPH Chronic. Stable. Continue tamsulosin 0.8 mg p.o. daily. Continue finasteride 5 mg p.o. daily F/E/N -LR at 80 mL/h x 1 L, electrolytes within normal limits, NPO - easy to chew diet at home ProphylaxisSCDs to bilateral lower extremities Codefull per discussion with patient Dispositionadmit to medical, will need rehab on dispo (2) Closed right hip fracture: (3) COPD (chronic obstructive pulmonary disease): (4) CAD (coronary artery disease): (5) Perforated gastric ulcer: (6) Hyperlipidemia: (7) Hypertension: (8) BPH (benign prostatic hyperplasia): Admission and Anticipated Discharge Date Admission Date: November 18, 2022 Supervising Physician Co-Signing Physician Notes I personally examined the patient and verified all daniels points of history and exam, discussed case, and agree with decision making with Dr Oconnor no new complaints. feels like he is making progress. heent nc at mmm breathing unlabored no conversational dyspnea no accessory muscle use skin with baseline ashen color no new pallor or icterus neuro without focal deficits hip fracture -now postop, have to assume osteoporotic fracture, acute blood loss anemia not unexpected for the fracture/surgerycausing very mild hypotensiondid trend down further - 1 unit PRBC transfused. As it relates to mild confusionappeared c/w mild deliriumnot unexpected given his overall circumstances. seems improved. his COPD and coronary disease appear to be stable. DVT prophylaxis with aspirin per orthopedics. hopefully rehab tomorrow. otherwise as above Subjective No complaints this AM. No dizziness, SOB, lightheadedness. Review of Systems Review of Systems: See HPI Physical Exam Physical Exam: Gen: cachetic uncomfortable appearing elderly male no distress HEENT: AT NC Resp: breathing comfortably on 2 L NC CV: clinically well perfused GI: non-tender Skin: no rashes or bruising noted Psych: appropriate mood and affect Neuro: alert and oriented Results & Data Results & Data Vital Signs (Past 12 Hours) Vital Signs Temp Pulse Resp BP Pulse Ox Pulse Ox O2 Del Method 11/21/22 07:36 37.0 C 81 14 148/63 H 98 Nasal Cannula 11/21/22 03:48 97 11/20/22 22:20 Nasal Cannula 11/20/22 22:18 97 03/29/23 21:19 37.2 C 88 22 122/62 98 Nasal Cannula O2 Del Method O2 Flow Rate O2 Flow Rate 11/21/22 07:36 2 11/21/22 03:48 Nasal Cannula 2 11/20/22 22:20 2 11/20/22 22:18 Nasal Cannula 2 11/20/22 21:19 2 Laboratory Results 11/21/22 06:19 11/21/22 06:19 Resident Activity Tracking Resident Involvement: Resident Care Provided Care Provided: Adult Hospital Medicine
[2022-11-21] MEDS: BUDESONIDE/FORMOTEROL FUMARATE 160/4.5 60 PUFFS/INHALER INH SCH ×2 (08:09→20:12)
[2022-11-21] MEDS: PANTOprazole 40 MG in SYRINGE 0 ML IV SCH ×2 (08:09→20:12)
[2022-11-21] MEDS: carBAMazepine 200 MG TABLET PO SCH ×3 (08:10→20:12)
[2022-11-21] MEDS: FINASTERIDE 5 MG TAB PO SCH (08:10)
[2022-11-21] MEDS: FLUTICASONE PROPIONATE NA SPR 16 GM BTL SCH (08:11)
[2022-11-21] MEDS: CHOLECALCIFEROL 1,000 UNITS 25 MCG TAB PO SCH (08:11)
[2022-11-21] MEDS: FOLIC ACID 1 MG TAB PO SCH (08:11)
[2022-11-21] MEDS: TAMSULOSIN HCL 0.4 MG CAP PO SCH (08:11)
[2022-11-21] MEDS: ASPIRIN 325 MG ECTAB PO SCH (08:11)
[2022-11-21] MEDS: METOPROLOL SUCC 25MG EXT REL TAB PO SCH (08:12)
[2022-11-21] MEDS: POLYETHYLENE (MIRALAX) 17 GM PACK PO SCH (08:18)
[2022-11-21] MEDS: ALBUTEROL HFA 8 GM INHALER INH PRN (09:24)
[2022-11-21 16:29] LABS: Hematocrit (blood only) 23.5 % (42.0-52.0)
--- NOTE | 2022-11-21 18:33 | Billing Data ---
Date of Service November 21, 2022 Coding Level of Care Code 00423 SUB INP/OBS CARE MIN
[2022-11-21] MEDS: SIMVASTATIN 40 MG TAB PO SCH (20:12)
[2022-11-21] MEDS: DOCUSATE SODIUM/SENNA 50/8.6MG TAB PO SCH (20:12)
[2022-11-22] MEDS: oxyCODONE HCL IR 5 MG TAB (IMMEDIATE RELEASE) PO PRN ×2 (03:28→09:47)
[2022-11-22] MEDS: ALBUTEROL HFA 8 GM INHALER INH PRN ×3 (04:56→11:23)
[2022-11-22] MEDS: FAMOTIDINE 20 MG TAB PO SCH (05:58)
[2022-11-22] MEDS: ACETAMINOPHEN 500 MG TAB PO SCH (05:58)
[2022-11-22 06:53] LABS: Hematocrit (blood only) 23.2 % (42.0-52.0); Hemoglobin 8.1 g/dl (14.0-18.0); Mean Corpuscular Hemoglobin 33.5 pg (25.0-34.0); Mean Corpuscular Hgb Conc 34.9 g/dL (32.0-36.0); Mean Corpuscular Volume 95.9 fL (80.0-100.0); Mean Platelet Volume 11.5 fL (9.4-12.4); Platelet Count 197 K/uL (130-400); RDW Coefficient of Variation 15.9 % (11.5-14.5); Red Blood Count 2.42 M/uL (4.70-6.10); White Blood Count 7.21 K/ul (4.8-10.8)
[2022-11-22 07:11] LABS: Albumin Level 2.8 gm/dl (3.4-5.0); BUN Creatinine Ratio 43.4 (10-20); Bilirubin,Total 0.6 mg/dl (0.2-1.0); Creatinine Clr Calc Pharmacy 53.2 ml/min; Est GFR (African American) 97.8 ml/min; Est GFR (Non-African American) 84.4 ml/min; Globulin 2.7 gm/dl (2.5-4.0); Magnesium 2.2 mg/dl (1.7-2.4); Phosphorus 2.8 mg/dl (2.5-4.9); Potassium 3.6 mmol/L (3.5-5.1); Total Protein 5.5 gm/dl (6.0-8.3)
--- NOTE | 2022-11-22 07:48 | Discharge Summary ---
Date of Service November 22, 2022 Admission HPI Per Admitting Provider James Ibarra is a pleasant 82-year-old male with history of COPD (2 L nasal cannula nightly), CAD status post stent placement 2010, GERD, BPH, hypertension and hyperlipidemia presenting from home after sustaining a fall for approximately 3-4 steps. Patient walked out on his patio and fell from a height of 3-4 steps. He landed headfirst on the concrete and struck his right shoulder and hip as well. He is uncertain if he lost consciousness. He had immediate pain in his right hip. No additional complaints. In the ER he is afebrile, tachycardic otherwise hemodynamically stable. No respiratory distress. Adequate oxygenation on 2 L of oxygen by nasal cannula. Work-up as below, in summary reveals a right intertrochanteric hip fracture. Patient denies chest pain, palpitations, cough, shortness of breath. Denies abdominal pain, nausea, vomiting, diarrhea, constipation. Denies double vision, focal numbness/tingling/weakness. Denies neck pain. ER course: IV fentanyl per EMS Fentanyl 50 mcg IV Morphine 2 mg IV x2 doses Admission Exam Per Admitting Provider General: Frail, elderly male patient resting comfortably, in no distress but complaining of significant right hip pain, non-toxic in appearance, AA&O to self, hospital. Is uncertain of date. Skin: Skin tear right posterior shoulder, small laceration at top of head HEENT: Facial bones stable, no Medel sign or raccoon eyes, pupils constricted, equal bilaterally and reactive, EOMI with no pain, anicteric sclera, conjunctiva without injection, external ear normal to inspection and nontender, nares patent, moist mucus membranes, dentures in place, no oropharyngeal lesions, neck supple, trachea midline, no LAD, no thyromegaly, no JVD Heart: +S1/S2, regular, tachycardic, no m/r/g, ICD in place, nontender Lungs: equal air entry bilaterally, no rales/rhonchi/wheezes Abd: +BS, soft, NT/ND, no masses/organomegaly/ascites, well-healed midline abdominal scar Ext: warm, 2+ pulses in UE/LE bilaterally, no clubbing/cyanosis or edema, right lower extremity with mild deformity at hip, tender, neurovascularly intact Neuro: nonfocal, patient AA&O to self and location, able to answer questions and converse appropriately, speech intact, no facial droop, moving all extremities on command with equal strength 5/5, movement of right lower extremity limited secondary to pain Principal Diagnosis Fall, hip fracture Discharge Exam Gen: cachetic uncomfortable appearing elderly male no distress HEENT: AT NC Resp: breathing comfortably on 2 L NC CV: clinically well perfused GI: non-tender Skin: no rashes or bruising noted Psych: appropriate mood and affect Neuro: alert and oriented Discharge Data Allergies Allergy/AdvReac Type Severity Reaction Status Date / Time tiotropium Allergy Severe "CAN'T Verified 11/18/22 00:06 CATCH MY BREATH". Consultations 11/18/22 01:14 ED Decision to Admit Stat 11/18/22 02:29 Consult Orthopedic Surgery Routine 11/18/22 12:58 Consult Cardiology Routine Procedures Performed Operation Date: 11/19/22 07:00 Actual Procedures p Intramedullary Nailing of Right Femur(Right) - Benjamín Coyne MD Ordered Studies Cervical Spine CT 11/17/22 23:48 Exam(s): CT C SPINE EXAM: CT Cervical Spine Without Intravenous Contrast CLINICAL HISTORY: Reason for exam: head injury. TECHNIQUE: Axial computed tomography images of the cervical spine without intravenous contrast. Automated exposure control was utilized for the study. A dose lowering technique was utilized adhering to the principles of ALARA. COMPARISON: No relevant prior studies available. FINDINGS: Vertebrae: Multilevel cervical spondylosis and facet arthropathy. 3-4 mm anterolisthesis C3-4. May be degenerative in nature. No acute fracture. Discs/spinal canal/neural foramina: No acute process. Soft tissues: Unremarkable. Lung apices: Pulmonary emphysema. Small spiculation and pneumonitis in the right upper lung field. Tubes, lines and devices: Pacemaker. IMPRESSION: 1. No acute fracture. 2. 3-4 mm anterolisthesis C3-4. May be degenerative in nature. Electronically signed by: Ganesh Jimenez M.D. 11/18/22 00:[address] 11/17/22 23:48 Exam(s): CT HEAD Without Contrast EXAM: CT Head Without Intravenous Contrast CLINICAL HISTORY: Reason for exam: head injury. TECHNIQUE: Axial computed tomography images of the head/brain without intravenous contrast. Automated exposure control was utilized for the study. A dose lowering technique was utilized adhering to the principles of ALARA. COMPARISON: No relevant prior studies available. FINDINGS: Brain: No hemorrhage. No apparent acute cortical infarct. No mass lesion or midline shift. Involutional changes with small vessel disease. Ventricles: No hydrocephalus. Bones/joints: No acute fracture. Soft tissues: Unremarkable. Sinuses: No acute sinusitis. Mastoid air cells: No mastoid effusion. Orbits: Cataract surgery. Tubes, lines and devices: Pacemaker. IMPRESSION: No acute findings in the head/brain. Electronically signed by: Ganesh Jimenez M.D. 11/18/22 00:41 AM Hip/Pelvis X-Ray 11/17/22 23:48 SINGLE VIEW PELVIS; 2 VIEWS RIGHT HIP CLINICAL HISTORY: Fall with right hip injury. FINDINGS: An AP view of the pelvis with AP and crosstable lateral views of the right hip are obtained. No prior studies are available for comparison at the time of dictation. The skeletal structures are osteopenic. There is an angulated and comminuted intertrochanteric/subtrochanteric fracture of the right proximal femur with overlying soft tissue edema. There is medial displacement of the lesser trochanter. No additional fracture is seen involving the left hip or the bony pelvis. Mild arthritic change and joint space narrowing is seen in the hips. Degenerative sclerosis is noted in the sacroiliac joints. Lumbosacral spondylosis is partially imaged. There is advanced atherosclerotic calcification of the iliac and femoral arteries. IMPRESSION: Intertrochanteric/subtrochanteric fracture of the right proximal femur as above. Chest X-Ray 11/18/22 00:26 SINGLE VIEW CHEST CLINICAL HISTORY: Preoperative examination. Hip fracture FINDINGS: An AP, portable, supine chest radiograph is obtained. No prior studies are available for comparison at the time of dictation. A 2-lead cardiac pacemaker is in place. The heart is mildly enlarged noting atherosclerotic calcification of the thoracic aorta. The pulmonary vasculature is noncongested. Images and this change is noted. Nonspecific interstitial thickening is likely chronic. There is mild elevation of the right hemidiaphragm with bibasilar scarring/atelectasis. No airspace consolidation or large pleural effusion is identified. No pneumothorax is seen. The skeletal structures are osteopenic. The bony thorax is grossly intact. IMPRESSION: 1. Cardiomegaly, emphysema, and cardiac pacemaker without radiographic evidence of congestive failure. 2. No airspace consolidation or large pleural effusion is identified. 3. The suspicious opacity at the right apex seen on today's CT scan of the cervical spine is not appreciated by x-ray. Nonemergent follow-up with a dedicated chest CT is recommended for further evaluation. Chest CT 11/18/22 07:34 CT SCAN OF THE CHEST WITH IV CONTRAST CLINICAL HISTORY: Right apical opacity seen on cervical spine CT. COMPARISON STUDY: Chest x-ray dated 11/18/2022. CT of the cervical spine dated 11/18/2022. TECHNIQUE: Following the IV administration of 94 cc of Optiray 350, CT scan of the thorax was performed from the thoracic inlet to the upper abdomen. Images are reviewed in the axial, sagittal, and coronal planes. IV contrast was administered without complication. A dose lowering technique was utilized adhering to the principles of ALARA. The examination is significantly degraded by motion artifact. There is also streak artifact from the arms which could not be elevated above the chest. CT DOSE: 216.65 mGy.cm FINDINGS: Thyroid: Normal in size and heterogeneous in attenuation. Thoracic aorta: There is atherosclerotic calcification of the thoracic aorta. There is moderate dilatation of the ascending thoracic aorta which measures up to 4.0 cm. The remainder of the thoracic aorta is normal in caliber comment the arch demonstrates standard 3-vessel anatomy. No dissection is seen. Pulmonary vasculature: The pulmonary trunk is normal in caliber. There are no filling defects identified in the central pulmonary vessels to indicate pulmonary embolus. Note that this examination was not protocoled for evaluation of the pulmonary arteries. Heart: A cardiac pacemaker is present in the left chest wall. The heart is enlarged and without pericardial effusion. The coronary arteries are densely calcified. Lungs and pleural spaces: Evaluation of the lung parenchyma is degraded by motion artifact. There is moderate emphysema. No airspace consolidation or pleural effusion is identified. Scarring/atelectasis is noted at the lung bases. The trachea and central airways are clear. There is a 13 mm subsolid opacity at the right apex seen on image #50. An additional 10 mm subsolid opacity in the right lower lobe is seen on image #158. Mediastinum: There is no mediastinal lymphadenopathy. Pam: Clear. Axillae: There is no axillary lymphadenopathy. Upper abdomen: A small hiatal hernia is noted. Cysts in the partially imaged right kidney measure up to 3.3 cm. Skeletal structures: The skeletal structures are osteopenic. Degenerative changes and kyphoscoliosis is noted in the thoracic spine. There are mild and age indeterminate superior end plate compression deformities of T3 and T4. Arthritic change is noted in the shoulders. No lytic or blastic bony lesions are seen. IMPRESSION: 1. Streak and motion compromised examination. 2. Cardiomegaly and emphysema. 3. There are at least 2 subsolid opacities in the right lung which measure up to 13 mm. These are pathologically indeterminant, and although these could be inflammatory the appearance is more suspicious for adenomatoid lesions. Outpatient pulmonology assessment is advised, as is CT follow-up as per the Fleischner criteria. See below. 4. There is no airspace consolidation or pleural effusion. 5. There is mild aneurysmal dilatation of the ascending thoracic aorta which measures up to 4 cm. 6. Additional findings as above. Please refer to below summary of Fleischner criteria recommendations for follow- up of incidental CT nodules (Daniel Augustine, Guidelines for management of small pulmonary nodules detected on CT scans: A statement from the Fleischner Society, Radiology 237: [phone].) SOLID NODULES Solitary nodule size: <6 mm * low risk patients: no follow-up needed * high risk patients: optional CT at 12 months Solitary nodule size: 6-8 mm * low risk patients: follow-up at 6-12 months, then consider further follow-up at 18-24 months * high risk patients: initial follow-up CT at 6-12 months and then at 18-24 months if no change Solitary nodule size: >8 mm * either low or high risk patients - consider follow-up CT at 3 months, and/or CT-PET, and/or biopsy Multiple nodules size: <6 mm * low risk patients: no routine follow-up * high risk patients: optional CT at 12 months Multiple nodules size: 6-8 mm * low risk patients: follow-up at 3-6 months, then consider further follow-up at 18-24 months * high risk patients: follow-up at 3-6 months, then at 18-24 months if no change Multiple nodules size: >8 mm * low risk patients: follow-up at 3-6 months, then consider further follow-up at 18-24 months * high risk patients: follow-up at 3-6 months, then at 18-24 months if no change Note: newly detected indeterminate nodule in persons 35 years of age or older. * low risk patients: minimal or absent history of smoking and/or other known risk factors * high risk patients: history of smoking or of other known risk factors (e.g. first degree relative with lung cancer, or exposure to asbestos, radon, uranium) * if a nodule up to 8 mm is partly solid or is ground glass further follow-up is required after 24 months to exclude possible slow growing adenocarcinoma (DEANA) SUBSOLID NODULES Solitary pure ground-glass nodule * nodule size <6 mm - no CT follow-up required * nodule size >=6 mm - follow-up CT at 6-12 months, then every 2 years until 5 years Solitary part-solid nodule * nodule size <6 mm - no CT follow-up required * nodule size >=6 mm - follow-up CT at 3-6 months. If unchanged, and solid component remains <6 mm, then annual follow-up for 5 years Multiple subsolid nodules * nodule size <6 mm - follow-up CT at 3-6 months, consider further follow-up at 2 and 4 years if stable * nodule size >=6 mm - follow-up CT at 3-6 months, subsequent management based on the most suspicious nodule(s) Hip X-Ray 11/19/22 14:30 INTRAOPERATIVE RADIOGRAPHS CLINICAL HISTORY: Open reduction internal fixation of the right proximal femur. Fluoro time: 91 seconds Exposure: 13.25 mGy FINDINGS: 8 spot fluoroscopic views of the right hip are correlated with radiographs dated 11/18/2022. Intertrochanteric and intramedullary nails have been placed transfixing an intertrochanteric/subtrochanteric fracture of the right proximal femur. Near-anatomic alignment is restored. A single cortical lag screw transfixes the distal end of the intramedullary nail. The orthopedic hardware appears intact. IMPRESSION: Intraoperative images from open reduction and internal fixation of a right proximal femoral fracture as above. Femur X-Ray 11/19/22 16:35 XR femur RT 2V routine HISTORY: 82 years-old Male Post op acute fracture of the intertrochanteric right femur COMPARISON: 11/18/2022 TECHNIQUE: 2 views of the right femur FINDINGS: Arterial calcifications. Mild osteoarthritis of the right hip. Status post placement of an intratrochanteric nail with medullary maxwell fixating the acute and comminuted intertrochanteric femoral fracture. There is improved alignment. Skin fawn are noted along with expected postoperative soft tissue swelling with deep tissue air. Superficial femoral arterial/popliteal stent grafts. IMPRESSION: Improved alignment of the acute intertrochanteric fracture of the right femur status post ORIF. Hospital Course (1) Fall: 82 y/o male with a PMHx of COPD on 2L HS, CAD - prev stent placement AICD in place, HTN, HLD, GERD - perforated gastric ulcer in distant past, smoking history, BPH, and CAD found to have a right hip fracture after a fall admitted for pain control and surgery now POD2 ORIF right hip with intermittent hypotension and downtrending hemoglobin. #Fall #Right hip fx #Blood loss anemia Fell from 3-4 step height - head, right shoulder, and right hip trauma. CT head and neck clear. Patient found to have a neurovascularly intact intertrochanteric right hip fracture. Cards cleared for procedure. Ortho on board now s/p ORIF on 11/19. Patient hemoglobin down trending 7.1 --> 8.0 --> 8.1 after transfusion of 1 unit PRBCs. Stable. Continue fall precautions. Pain regimen - dillon Tylenol, PRN: toradol, oxy 10, morphine 2mg. CBC in a week. #Transaminitis Mildly elevated - possibly in the setting of mild hypotension vs medication interaction. CMP in a week. #Presumed osteoporosis Patient s/p ORIF of long bone fracture after a fall from a small distance. Likely a component of osteoporosis. Would rec starting bisphosphonates 1 month post-op. Discuss with PCP #Multiple subsolid nodules 13 mm and 10 mm subsolid nodules found in the right lung. Pathologically indeterminant. There is concern for adenomatoid lesions. Patient has a distant smoking history 0.5-1.5 ppd for several years. No recent cigarette smoking. Does smoke cigars. Rec outpatient pulm vs inpatient pulm and repeat imaging CT in 3-6 months. #COPD Chronic. No acute exacerbation. Patient is on 2 L of oxygen at night along with BID Symbicort and albuterol PRN. Patient has reaction to formulary - throat pain. Will administer home med instead. Can use nebs as needed. #CAD Chronic. Stable. Patient denies chest pain. EKG with no acute ischemic changes. Record request for outpatient cardiology. Continue Lasix 20 mg QD, metoprolol 12.5 mg QD, simvastatin 40 mg PO. ASA 325 mg for DVT ppx. #Perforated gastric ulcer Patient with remote history of perforated gastric ulcer status post laparotomy. He reports having a PEG tube temporarily which has since been removed. No further issues. Continue acid suppression - Protonix 40 mg BID, famotidine 20 mg PO. #HLD Chronic. Stable. Continue simvastatin 40 mg p.o. daily #HTN Blood pressure stable. Continue metoprolol 12.5 mg p.o. daily #BPH Chronic. Stable. Continue tamsulosin 0.8 mg p.o. daily. Continue finasteride 5 mg p.o. daily F/E/N -LR at 80 mL/h x 1 L, electrolytes within normal limits, NPO - easy to chew diet at home ProphylaxisSCDs to bilateral lower extremities Codefull per discussion with patient Dispositionadmit to medical, will need rehab on dispo (2) Closed right hip fracture: (3) COPD (chronic obstructive pulmonary disease): (4) CAD (coronary artery disease): (5) Perforated gastric ulcer: (6) Hyperlipidemia: (7) Hypertension: (8) BPH (benign prostatic hyperplasia): (9) Transaminitis: Total Time Total Time Spent Total Time Spent (In Minutes): <30 Discharge Plan Discharge Items Patient Disposition: Transfer Inpatient Rehab Fac Reason For Visit: FALL, RIGHT HIP FRACTURE, CHI Discharge Diagnosis: right hip fracture Activity: Per Instructions section Non-emergency contact: Primary Care Provider Call non-emergency contact if: your temperature is above 101.5 Follow-up/Referrals: Gamaliel Perry MD [Physician] - James Madsen PA-C [Primary Care Provider] - Aidan Ferguson MD [Physician] - Diet: Regular Diet Texture: Easy to Chew Ambulatory Orders: Complete Blood Count no Diff (Timed) Timeframe: 1 Week Location: Determined by Patient Ordered By: Tanja Oconnor Comprehensive Metabolic Panel (Routine) Timeframe: 1 Week Location: Determined by Patient Ordered By: Tanja Oconnor Addtl Attending Provider Instructions: Orthopaedic Instructions after Hip Fracture Surgery: Please keep your wound clean and dry. Do not remove any of the fawn. Fawn were removed at your follow-up appointment with orthopedic surgery. Please continue daily dressing changes until your follow-up appointment. If there is no drainage onto the dressing for total of 24 hours, you may shower after 5 days from surgery. Allow soap and water to run over the incision, no scrubbing, and pat dry. Do not submerse (sitting in bathtub, hot tub, jacuzzi, pool, etc) the wound for at least 3 weeks. You may bear weight on your lower extremities as tolerated. Please use the walker or as instructed by physical therapy. For pain control please use Tylenol as needed. You may also have a stronger pain medication prescribed to you at discharge. You can also apply ice to the surgical site. To reduce the risk of dangerous blood clots please continue aspirin 325 mg by mouth daily or the medication for blood clots recommended by your medical team. Orthopedic clinic follow-up should be in 2-3 weeks after surgery for repeat x- ray. Fawn can be removed at the orthopedic follow-up. If necessary, fawn can be removed by a nurse at home or at a nursing facility upon our order. Please contact the clinic. Addtl Manufacturer Provider Instructions: 82 y/o male with a PMHx of COPD on 2L HS, CAD - prev stent placement AICD in place, HTN, HLD, GERD - perforated gastric ulcer in distant past, smoking histo ry, BPH, and CAD found to have a right hip fracture after a fall admitted for pain control and surgery now POD2 ORIF right hip with intermittent hypotension and downtrending hemoglobin. #Fall #Right hip fx #Blood loss anemia Fell from 3-4 step height - head, right shoulder, and right hip trauma. CT head and neck clear. Patient found to have a neurovascularly intact intertrochanteric right hip fracture. Cards cleared for procedure. Ortho on board now s/p ORIF on 11/19. Patient hemoglobin down trending 7.1 --> 8.0 --> 8.1 after transfusion of 1 unit PRBCs. Stable. Continue fall precautions. Pain regimen - dillon Tylenol, PRN: toradol, oxy 10, morphine 2mg. CBC in a week. #Transaminitis Mildly elevated - possibly in the setting of mild hypotension vs medication interaction. CMP in a week. #Presumed osteoporosis Patient s/p ORIF of long bone fracture after a fall from a small distance. Likely a component of osteoporosis. Would rec starting bisphosphonates 1 month post-op. Discuss with PCP #Multiple subsolid nodules 13 mm and 10 mm subsolid nodules found in the right lung. Pathologically indeterminant. There is concern for adenomatoid lesions. Patient has a distant smoking history 0.5-1.5 ppd for several years. No recent cigarette smoking. Does smoke cigars. Rec outpatient pulm vs inpatient pulm and repeat imaging CT in 3- 6 months. #COPD Chronic. No acute exacerbation. Patient is on 2 L of oxygen at night along with BID Symbicort and albuterol PRN. Patient has reaction to formulary - throat pain. Will administer home med instead. Can use nebs as needed. #CAD Chronic. Stable. Patient denies chest pain. EKG with no acute ischemic changes. Record request for outpatient cardiology. Continue Lasix 20 mg QD, metoprolol 12.5 mg QD, simvastatin 40 mg PO. ASA 325 mg for DVT ppx. #Perforated gastric ulcer Patient with remote history of perforated gastric ulcer status post laparotomy. He reports having a PEG tube temporarily which has since been removed. No further issues. Continue acid suppression - Protonix 40 mg BID, famotidine 20 mg PO. #HLD Chronic. Stable. Continue simvastatin 40 mg p.o. daily #HTN Blood pressure stable. Continue metoprolol 12.5 mg p.o. daily #BPH Chronic. Stable. Continue tamsulosin 0.8 mg p.o. daily. Continue finasteride 5 mg p.o. daily F/E/N -LR at 80 mL/h x 1 L, electrolytes within normal limits, NPO - easy to chew diet at home ProphylaxisSCDs to bilateral lower extremities Codefull per discussion with patient Dispositionadmit to medical, will need rehab on dispo Pending Studies at Discharge: No Stand-Alone Forms: My [facility] Skilled Items Patient informed of condition?: Yes DNR: No Discharge Level of Care: Acute rehab Communicable Disease: No Discharge Prognosis: Stable Lines: None Urinary Catheter: No Medications and DC Order Prescriptions: New sennosides-docusate sodium [Senokot-S] 8.6-50 mg Tablet 2 tab PO HS Qty: 20 0RF polyethylene glycol 3350 [Miralax] 17 gram Powder In Packet 17 g PO DAILY Qty: 30 0RF bisacodyl 10 mg Suppository 10 mg [place] DAILY PRN (Reason: constipation) Qty: 12 0RF acetaminophen [Tylenol Extra Strength] 500 mg Tablet 1,000 mg PO Q8 Qty: 30 0RF aspirin [Ecotrin] 325 mg Tablet,Delayed Release (Dr/Ec) 325 mg PO QAM Qty: 30 2RF Continued tizanidine 4 mg tablet 4 mg PO Q8H PRN (Reason: MUSCLE SPASMS) aspirin 81 mg Tablet,Delayed Release (Dr/Ec) 81 mg PO DAILY carbamazepine 200 mg tablet 200 mg PO TID famotidine 20 mg tablet 20 mg PO DAILYBB tamsulosin 0.4 mg capsule 0.8 mg PO DAILY pantoprazole 40 mg tablet,delayed release (DR/EC) 40 mg PO BID simvastatin 20 mg tablet 40 mg PO QPM folic acid 1 mg tablet 1 mg PO DAILY furosemide 20 mg tablet 20 mg PO DAILY metoprolol succinate 25 mg tablet extended release 24 hr 12.5 mg PO DAILY albuterol sulfate 90 mcg/actuation HFA aerosol inhaler 2 puff INHALATION Q4H PRN (Reason: Shortness Of Breath) fluticasone propionate 50 mcg/actuation spray,suspension 2 spray INTRANASAL DAILY finasteride 5 mg tablet 5 mg PO DAILY oxycodone 5 mg tablet 5 mg PO Q6H MDD 20 MG/24 HOURS PRN (Reason: Pain) potassium chloride [Klor-Con M10] 10 mEq tablet,ER particles/crystals 10 meq PO DAILY cholecalciferol (vitamin D3) 25 mcg (1,000 unit) tablet 50 mcg PO DAILY budesonide-formoterol [Symbicort] 160-4.5 mcg/actuation HFA aerosol inhaler 2 inh INHALATION BID Discharge Orders: Discharge Order (Routine); Ordered 11/22/22 Ordered By: Tanja Shepherd/Other Patient Handouts: Hip Fx Surg Dc Admission Data Admit Date/Time: 11/18/22 01:25 Attending Provider: Antonio Medina Admit Provider: Dora Ferguson Primary Care Provider: James Madsen Other Providers: [place] ; Dora Ferguson ; Benjamín Coyne ; Gissel Landa ; Jose Hare ; Brooklyn Bentley ; Brandyn Myles ; Jesi Resendez ; Davida Barrientos ; Georgia Begum ; Fito Calles ; Aidan Ferguson ; Luisa Land ; Eric Laurent ; Ezra Dominique ; Ezra Angulo ; Rachid Lopez Other Interventions: Discharge Summary Assessment (RN) Last Done: 11/22/22 12:33 Supervising Physician Co-Signing Physician Notes I personally examined the patient and verified all daniels points of history and exam, discussed case, and agree with decision making with Dr Oconnor feels good feels up to rehab. no new problems. heent nc at mmm breathing unlabored no conversational dyspnea no accessory muscle use skin with baseline ashen color no new pallor or icterus neuro without focal deficits hip fracture -now postop, have to assume osteoporotic fracture, acute blood loss anemia not unexpected for the fracture/surgerycausing very mild hypotensiondi d trend down further - 1 unit PRBC transfused - now stable. As it relates to mild confusionappeared c/w mild deliriumnot unexpected given his overall circumstances. improved and has stayed that way. his COPD and coronary disease appear to be stable. DVT prophylaxis with aspirin per orthopedics. elevated LFTs nonspecific - likely med induced and very mild. CBC, CMP next week (sooner if clinically warranted) - safe/stable for rehab. otherwise as above otherwise as above Resident Activity Tracking Resident Involvement: Resident Care Provided Care Provided: Adult Hospital Medicine
[2022-11-22] MEDS: PSEUDOEPHEDRINE HCL 30 MG TAB PO PRN (09:42)
[2022-11-22] MEDS: POLYETHYLENE (MIRALAX) 17 GM PACK PO SCH (09:42)
[2022-11-22] MEDS: carBAMazepine 200 MG TABLET PO SCH (09:42)
[2022-11-22] MEDS: FLUTICASONE PROPIONATE NA SPR 16 GM BTL SCH (09:43)
[2022-11-22] MEDS: PANTOprazole 40 MG in SYRINGE 0 ML IV SCH (09:43)
[2022-11-22] MEDS: CHOLECALCIFEROL 1,000 UNITS 25 MCG TAB PO SCH (09:44)
[2022-11-22] MEDS: METOPROLOL SUCC 25MG EXT REL TAB PO SCH (09:44)
[2022-11-22] MEDS: ASPIRIN 325 MG ECTAB PO SCH (09:45)
[2022-11-22] MEDS: FOLIC ACID 1 MG TAB PO SCH (09:45)
[2022-11-22] MEDS: FINASTERIDE 5 MG TAB PO SCH (09:45)
[2022-11-22] MEDS: TAMSULOSIN HCL 0.4 MG CAP PO SCH (09:45)
[2022-11-22] MEDS: BUDESONIDE/FORMOTEROL FUMARATE 160/4.5 60 PUFFS/INHALER INH SCH (09:46)
--- NOTE | 2022-11-22 18:01 | Billing Data ---
Date of Service November 22, 2022 Coding Level of Care Code 53836 IN/OBS DISCH 30 MIN/LESS
== END 2022-11-22 13:05 | DRG 481 ==
LOC: ED 23:19 → 3W 11-18 01:25 → SUATTDRO 11-18 01:25 → 3W 11-18 02:10

== ENCOUNTER 2023-08-24 16:42 | Inpatient (IN) ==
--- OUTSIDE RECORDS SUMMARY | 2023-08-24 16:50 | External Medical Summary ---
Author Name Unknown Address Unknown Organization K1G:[facility] - [address] [facility] [place] [id number] Laboratory Report Ordering Provider Test Date Status BELKIS SANDERSON 06/08/2023 16:29:56 Final Observation Date Value Abnormality Reference (Units ) Status BUN 06/08/2023 16:29:56 24 Above high normal 6-20 (mg/dL) Final Creatinine 06/08/2023 16:29:56 0.6 0.6-1.2 (mg/dL) Final Glomerular filtration rate/1.73 sq M.predicted [Volume Rate/Area] in Serum, Plasma or Blood by Creatinine-based formula (CKD-EPI) 06/08/2023 16:29:56 >90 >=60 (mL/min) Final eGFR is calculated based on the CKD-EPI 2020 equation SODIUM 06/08/2023 16:29:56 140 135-146 (m mol/L) Final Potassium 06/08/2023 16:29:56 4.1 3.5-5.1 (m mol/L) Final Cl 06/08/2023 16:29:56 104 98-107 (mm ol/L) Final CO2 06/08/2023 16:29:56 28 22-32 (mmo l/L) Final Anion gap 06/08/2023 16:29:56 8 7-15 (mmol /L) Final Glucose 06/08/2023 16:29:56 102 70-120 (mg /dL) Final Albumin 06/08/2023 16:29:56 3.3 Below low normal 3.8 -5.0 (g/dL) Final AST (Aspartate aminotransferase) 06/08/2023 16:29:56 23 10-50 (U/L) Fin al Alk Phos 06/08/2023 16:29:56 117 35-130 (U/ L) Final Bilirubin, Total 06/08/2023 16:29:56 0.2 <=1 .2 (mg/dL) Final Calcium 06/08/2023 16:29:56 8.6 8.4-10.2 ( mg/dL) Final Protein 06/08/2023 16:29:56 5.8 Below low normal 6.0 -8.3 (g/dL) Final ALT (Alanine aminotransferase) 06/08/2023 16:29:56 25 10-50 (U/L) Jason triplett Performing Location [facility] - [address] [place] [id number]
--- OUTSIDE RECORDS SUMMARY | 2023-08-24 16:50 | External Medical Summary ---
Author Name Unknown Address Unknown Organization K1G:[facility] - [address] [place] [id number] Laboratory Report Ordering Provider Test Date Status BELKIS SANDERSON 06/08/2023 16:05:42 Final Observation Date Value Abnormality Reference (Units ) Status SYNC LEUKOCYTES IN BLOOD BY AUTOMATED COUNT 06/08/2023 16:05:42 6.99 4.00-10.80 (K/uL) Final Segs 06/08/2023 16:05:42 70.1 40.0-75.0 (%) Final Lymphs % 06/08/2023 16:05:42 18.6 18.0-42.0 (%) Final Monos 06/08/2023 16:05:42 7.9 1.0-11.0 (%) Final Eosinophils 06/08/2023 16:05:42 3.0 0.0-6.0 (%) Final Basos 06/08/2023 16:05:42 0.4 0.0-2.0 (%) Final Absolute Segs 06/08/2023 16:05:42 4.90 1.80-7.70 (K/uL) Final Lymphs, absolute 06/08/2023 16:05:42 1.30 1.00-4.80 (K/ul) Final Monos, Abs 06/08/2023 16:05:42 0.55 0.00-1.10 (K/uL) Final Eos, Abs 06/08/2023 16:05:42 0.21 0.00-0.70 (K/uL) Final Basos, Abs 06/08/2023 16:05:42 0.03 0.00-0.20 (K/uL) Final Performing Location [facility] - [address] [facility] [phone]
--- OUTSIDE RECORDS SUMMARY | 2023-08-24 16:50 | External Medical Summary ---
Author Name Unknown Address Unknown Organization K1G:[facility] - [address] [place] [phone] Laboratory Report Ordering Provider Test Date Status BELKIS SANDERSON 06/08/2023 17:54:05 Final Observation Date Value Abnormality Reference (Units ) Status Troponin T 06/08/2023 17:54:05 54 Above high normal < =22 (ng/L) Final Performing Location [facility] - [address] [place] [phone]
--- OUTSIDE RECORDS SUMMARY | 2023-08-24 16:50 | External Medical Summary | Summary of Care ---
Author Name Unknown Organization [facility] Address [address] [place] [address] Phone [phone] Care Team Providers Care Strategic Partnership Representative Name Role Phone James Madsen PA-C Primary Care Provider + Reason for Visit * Reason Onset Date Comments Referral Requested by Specialist 03/11/2023 Encounter Details Date Type Department Care Team Description 03/11/[address] [facility] [address] [place] [address] James Madsen PA-C [address] [place] [id number] Referral Requested by Specialist Allergies Active Allergy Reactions Severity Noted Date Comments Tiotropium Other (Please comment) High 12/20/2019 "Couldn't catch his breath" documented as of this encounter (statuses as of 06/10/2023) Medications Medication Sig Dispensed Refills Start Date End Date Status TEGRETOL 200 MG PO TABSIndications:Co nvulsions (HCC) one pill three times daily 90 6 10/04/2008 Active furosemide (LASIX) 20 MG Tablet Take 1 Tablet by mouth daily as needed (chest pressure / weight gain). 5 03/09/2018 Active KLOR-CON 10 10 MEQ TBCR Take 1 Tablet by mouth in the morning. 3 03/09/2018 Active simvastatin (ZOCOR) 40 MG Tablet Take 1 Tablet by mouth every evening. 5 03/09/2018 Active finasteride (PROSCAR) 5 MG Tablet Take 1 Tablet by mouth in the morning. 0 Active metoprolol succinate XL (TOPROL XL) 25 MG TB24 Take 0.5 Tablets by mouth in the morning. 0 Active Aspirin 81 MG Oral Tablet Delayed Release Take 1 Tablet by mouth at bedtime. 0 Active Albuterol Sulfate (VENTOLIN HFA) 108 (90 Base) MCG/ACT AERS Inhale 2 Puffs by mouth every 4 hours as needed for Shortness of Breath or Wheezing. 0 Active pantoprazole (PROTONIX) 40 MG TBEC Take 1 Tablet by mouth in the morning and 1 Tablet before bedtime. 0 Active acetaminophen (TYLENOL) 325 MG Tablet Take 2 Tabs by mouth every 6 hours as needed for Pain. 30 Tab 0 11/05/2019 Active docusate sodium (COLACE) 100 MG Capsule Take 1 Cap by mouth 2 times a day. 10 Cap 0 11/05/2019 Active polyethylene glycol 3350 (MIRALAX) packet Take 1 Packet by mouth daily. 14 Each 0 11/06/2019 Active Additional Information Patient not taking.Reported on 03/20/2023 Budesonide-Formote rol Fumarate 160-4.5 MCG/ACT Inhalation Aerosol (Symbicort) Inhale 2 Puffs by mouth in the morning and 2 Puffs before bedtime. 0 08/06/2021 Active Diclofenac Sodium 1 % External Gel (Voltaren) APPLY 1 G TOPICALLY 3 TIMES A DAY 0 08/28/2021 Active Famotidine 20 MG Oral Tablet (Pepcid) TAKE 1 TABLET BY MOUTH DAILY BEFORE A MEAL 0 11/12/2021 Active Fluticasone Propionate 50 MCG/ACT Nasal Suspension (Flonase) SPRAY 2 SPRAYS INTO EACH NOSTRIL EVERY DAY 0 11/09/2021 Active Folic Acid 1 MG Oral Tablet Take 1 Tablet by mouth in the morning. 0 11/09/2021 Active Mirtazapine 30 MG Oral Tablet (Remeron) Take 1 Tablet by mouth at bedtime. 0 10/08/2021 Active Tamsulosin HCl 0.4 MG Oral Capsule (Flomax) Take 2 Capsules by mouth in the morning. 0 11/12/2021 Active GetGo Rolling Walker To assist with proper walking 1 Each 0 02/25/2022 Active Calcium Carbonate-Vitamin D 500-200 MG-UNIT Oral Tablet Take by mouth 1 Tablet at noon AND 1 Tablet in the evening. Do not start before February 26, 2022. 60 Tablet 11 02/26/2022 Active Vitamin D3 25 MCG (1000 UT) Oral Tablet (Vitamin D3) Take by mouth 2 Tablets in the morning. Do not start before February 26, 2022. 30 Tablet 11 02/26/2022 Active Lidocaine 4 % External Patch (Aspercreme) Place topically on the skin 1 Patch in the morning. Do not start before February 26, 2022. 30 Patch 1 02/26/2022 Active Additional Information Patient not taking.Reported on 03/20/2023 traMADol HCl 50 MG Oral Tablet (Ultram) Take by mouth 0.5 Tablets every 6 hours as needed for Pain, Severe (pain intensity 7 to 10/10). 12 Tablet 0 02/26/2022 Active oxyCODONE HCl 5 MG Oral Tablet (Oxy IR) Take 1 Tablet by mouth every 4 hours as needed for Pain, Severe. 10 Tablet 0 08/23/2022 Active Additional Information Patient not taking.Reported on 03/19/2023 Sucralfate 1 GM/10ML Oral Suspension (Carafate) Take 10 mL by mouth in the morning and 10 mL at noon and 10 mL in the evening and 10 mL before bedtime. 420 mL 0 12/23/2022 Active Additional Information Patient not taking.Reported on 03/20/2023 tiZANidine HCl 4 MG Oral Capsule Take 1 Capsule by mouth 3 times a day as needed for Muscle spasms. 0 Active Loratadine 10 MG Oral Capsule Take 1 Capsule by mouth in the morning. 0 Active Midodrine HCl 5 MG Oral Tablet (Proamatine) Take 1 Tablet by mouth three times per day (morning, noon, & before bedtime) 90 Tablet 3 03/01/2023 06/29/2023 Active Classic 28-0.8 MG Oral Tablet Take 1 Tablet by mouth every morning. 30 Tablet 3 03/01/2023 06/29/2023 Active Clopidogrel Bisulfate 75 MG Oral Tablet (pLAVix) Take 0.5 (one-half) tablet by mouth in the morning. 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 He also has a small abdominal aortic aneurysm. The aneurysm still measures about 3.3 and ultrasound is unchanged and I reassured him that its not much to worry about right now. His PVRs on the right are stable showing some mild to moderate disease. He had a lot of movement artifact on the left and so the results of this are indeterminate on the left but he has no symptoms on that side him again in 6 months for repeat studies Pseudogout 11/05/2019 Calculus of kidney 02/19/2019 PUD (peptic ulcer disease) 08/25/2017 Overview: ruptured ulcer - needed clipped Prostatitis, acute 08/25/2011 Dyslipidemia, goal LDL below 100 009 Overview: Per Lipid Taxonomy. Old myocardial infarct 03/16/2009 Overview: Modified by Acute [facility] Protocol #5. GERD (gastroesophageal reflux disease) 0 01/12/2003 GENERAL OSTEOARTHROSIS 01/12/2003 Major depression, single episode 003 Tobacco use disorder 01/12/2003 Seizure disorder 09/21/2002 BPH (benign prostatic hyperplasia) Chronic neck pain documented as of this encounter (statuses as of 06/10/2023) Resolved Problems Problem Noted Date Resolved Date 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 Dyslipidemia, goal to be determined 01/12/2003 08/07/2009 Overview: Per Lipid Taxonomy. documented as of this encounter (statuses as of 06/10/2023) Immunizations Name Administration Dates Next Due COVID-19 mRNA, LNP-s, No Pre serve, 2-Dose Series (Moderna) 06/15/2021,11/03/2020,10/06/2020 Pneumococcal Conjugate Vacc, 13 Valent (Prevnar) 06/05/2020,11/03/2014 Pneumococcal Polysaccharide PPV23 (Pneumovax) 06/30/2007 Seasonal Influenza, Quadriva lent, No Preserve, IM 05/18/2013,06/15/2012 Seasonal Influenza, Quadriva lent, No Preserve, Mdck 10/08/2021 Seasonal Influenza, Recombin ant, RIV4, PF, (Flublock) 06/05/2020,06/21/2019,05/27/2018 Seasonal Influenza, Split, I IV3, With Preserve, Inj 06/05/2020,07/15/2017,05/25/2015,05/05,05/18/2013,06/15/2012 Seasonal Influenza, Trivalen t, High Dose, No Preserve, IM 07/04/2016 documented as of this encounter Social History Tobacco Use Types Packs/Day Years Used Date Smoking Tobacco: Every Day Cigarettes 1.5 40 Smokeless Tobacco: Never Comments:Now down to 1/2 pac k/day of small cigars Alcohol Use Standard Drinks/Week Comments Not Currently 0 (1 standard drink = 0.6 oz pur e alcohol) occas. Sex Assigned at Date Recorded Not on file Job Start Date Occupation Industry Not on file Not on file Not on file documented as of this encounter Functional Status Functional Status Response Date of Assess ment Are you deaf or do you have serious difficulty h earing? No 02/22/2023 Are you blind or do you have serious difficulty seeing, even when wearing glasses? No 02/22/2023 Do you have serious difficul ty walking or climbing stairs? (5 years old or older) Yes 02/22/2023 Do you have difficulty dress ing or bathing? (5 years old or older) Yes 02/22/2023 Because of a physical, menta l, or emotional condition, do you have difficulty doing errands alone such as visiting a doctor s office or shopping? (15 years old or older) No 02/23/20 Cognitive Status Response Date of Assessm ent Because of a physical, menta l, or emotional condition, do you have serious difficulty concentrating, remembering, or making decisions? (5 years old or older Yes 02/22/2023 documented as of this encounter Miscellaneous Notes * Telephone Encounter - Neuro Referral [facility] - 03/11/2023 6:10 AM EDT Patient with upcoming neurology appointment. Please FAX referral order documented in this encounter Plan of Treatment Upcoming Encounters Date Type Specialty Care Team Description 08/19/2023 Pharmacy [facility] [place], Pharmacist Neurology [address] [place] [address] 08/19/2023 Laboratory [facility] [place], Lab [facility] [address] [place] [address] 09/01/2023 Imaging Radiology 09/04/2023 Telemedicine Neurological Surgery Francois Henry PA-C [address], [place] [id number] Health Maintenance Due Date Last Done Comments DISCUSS TOBACCO CESSATION (REFER TO SMARTSET #8031) 1940 Depression Screening 1951 Alpha-1 Antitrypsin 1957 DTaP,Tdap,and Td Vaccines (1 - Tdap) 1958 Zoster Vaccines (1 of 2) 1989 *COPD SEVERITY VERIFIED BY PFT 03/21/2023 COVID-19 Vaccine ( - season) 2023 06/15/2021, 11/03/2020, 10/06/2020 Influenza Vaccine (FLU shot) (#1) 2023 07/17/2022, 05/22/2022, 10/08/2021, Additional history exists O2 ASSESSMENT COMPLETED IN PAST YEAR FOR COPD 02/28/2024 02/27/2023 AAA Monitoring 05/21/2024 05/21/2023 Pneumococcal Vaccine: 65+ Years Completed 06/05/2020, 11/03/2014, 06/30/2007 GARDASIL-HPV IMMUNIZATION SERIES Aged Out No longer eligible based on patient's age to complete this topic Hepatitis B Aged Out No longer eligi ble based on patient's age to complete this topic MENINGOCOCCAL (MENACTRA/MENVEO) Aged Out No longer eligible based on patient's age to complete this topic documented as of this encounter Medical Devices Implanted Type Area Paperhanger Pipe Device Identifier Shelf Expiration Date Model / Serial / Lot Stent 7x40 Precise [id number] - [id number] Implanted:Qty : 1 on 02/27/2023 by Bennett Quevedo MD at [facility] Left: Carotid [facility] [id number] 12/23/2023 [id number] / / [id number] documented as of this encounter Additional Health Concerns Infection Onset Date Last Indicated Resolved Time Respiratory Rule-Out 03/19/2023 03/19/2023 023 9:59 PM EDT COVID-19 Rule-Out 03/19/2023 03/19/2023 03/19/2023 9:59 PM EDT Respiratory Rule-Out 05/11/2023 05/11/2023 023 6:30 PM EDT COVID-19 Rule-Out 05/11/2023 05/11/2023 05/11/2023 6:30 PM EDT documented as of this encounter Advance Directives Documents on File Type Date Recorded Patient Clinical Trial Head Expl anation Advance Directives and Living Will 02/22/2023 ADVANCE DIRECTIVE / LIVING WILL Power of Wedding Makeup Artist 02/22/2023 Thania Regalado POWER OF A TTORNEY Latest Code Status on File Code Status Date Activated Date Inactivated Comments Full Code 03/19/2023 10:35 PM 03/22/2023 5:08 PM This order reflects the patients wishes and were consensually agreed upon. Question Answer Comments Discussion of Advance Directives occurred with: Patient Does the patient have a Living Will? No Does the patient have Health Care Power of Wedding Makeup Artist? No Code Status History Code Status Date Activated Date Inactivated Comments Full Code 02/24/2023 11:25 AM 03/01/2023 6:34 PM This o rder reflects the patients wishes and were consensually agreed upon. Question Answer Comments Discussion of Advance Directives occurred with: Not Discussed due to patient's condition Full Code 02/22/2023 2:53 PM 02/24/2023 11:25 AM This o rder reflects the patients wishes and were consensually agreed upon. Question Answer Comments Discussion of Advance Directives occurred with: Patient Full Code 02/20/2023 1:17 PM 02/22/2023 1:22 PM This o rder reflects the patients wishes and were consensually agreed upon. Question Answer Comments Discussion of Advance Directives occurred with: Patient Full Code 02/24/2022 1:16 PM 02/26/2022 5:06 PM This or perfecto reflects the patients wishes and were consensually agreed upon. Question Answer Comments Discussion of Advance Directives occurred with: Patient Does the patient have a Living Will? No Does the patient have Health Care Power of Wedding Makeup Artist? No Healthcare Agents on File Name Relationship Healthcare Agent Relationship Communication Thania Regalado Significant Other Health Care Ag ent (per Health Care Power of Wedding Makeup Artist document) Care Teams Strategic Partnership Representative Relationship Specialty Start Date End Date James Madsen PA-C [address] [address] [place] [address] PCP - General Physician Paper Coating Supervisor 02/24/22 documented as of this encounter
--- OUTSIDE RECORDS SUMMARY | 2023-08-24 16:50 | External Medical Summary ---
Author Name Unknown Address Unknown Organization K1G:[facility] - [address] [place] [id number] Laboratory Report Ordering Provider Test Date Status BELKIS SANDERSON 06/08/2023 16:29:56 Final Observation Date Value Abnormality Reference (Units ) Status Lactic Acid, Whole Blood 06/08/2023 16:29:56 1.2 0.4-2.0 (mmol/L) Final Performing Location [facility] - [address] [place] [address] [place] [id number]
--- OUTSIDE RECORDS SUMMARY | 2023-08-24 16:50 | External Medical Summary | Summary of Care ---
Author Name Unknown Organization [facility] Address [address] [place] [address] Phone [phone] Care Team Providers Care Outside Machinist Helper Name Role Phone James Madsen PA-C Primary Care Provider + Reason for Visit * Reason Comments Left Message Encounter Details Date Type Department Care Team (Late st Contact Info) Description 08/19/2023 6:30 AM [facility] Pharmacy Neurology, [place] [address] [place] [address] [place], Pharmacist Neurology [address] [place] [address] Encounter for long-term current use of medication* Allergies Active Allergy Reactions Criticality Noted Date Comments Tiotropium Other (Please comment) High 12/20/2019 "Couldn't catch his breath" documented as of this encounter (statuses as of 08/19/2023) Medications Medication Sig Dispensed Refills Start Date End Date Status TEGRETOL 200 MG PO TABSIndications:Con vulsions (HCC) one pill three times daily 90 [...] Additional Information Patient not taking.Reported on 03/20/2023 Budesonide-Formoter ol Fumarate 160-4.5 MCG/ACT Inhalation Aerosol (Symbicort) Inhale [...] by mouth in the morning. 0 Active Clopidogrel Bisulfate 75 MG Oral Tablet (pLAVix) Take 0.5 (one-half) tablet by mouth in the morning. 30 Tablet 3 03/02/2023 Active oxygen IN GAS Use 2 L/min(Oxygen) as directed at bedtime. 0 Active Azithromycin 250 MG Oral Tablet (Zithromax) Take 2 tablets by mouth daily until complete 4 Tablet 0 03/22/2023 Active Additional Information Patient not taking.Reported on 04/19/2023 HYDROcodone-Acetami nophen 10-325 MG Oral Tablet Take 1 Tablet by mouth every 8 hours as needed for Pain, Moderate. 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 Old myocardial infarct 03/16/2009 Overview: Modified by Acute [place] Protocol #5. GERD (gastroesophageal reflux disease) 3 GENERAL OSTEOARTHROSIS 01/12/2003 Major depression, single episode 01/12/2003 Tobacco use disorder 01/12/2003 Seizure disorder 09/21/2002 BPH (benign prostatic hyperplasia) Chronic neck pain documented as of this encounter (statuses as of 08/19/2023) Resolved Problems Problem Noted Date Diagnosed Date Resolved Date F/u for non Q wave myocardial infarction 01/12/2003 03/16/2009 Overview: Modified by Acute [place] Protocol #5. Dyslipidemia, goal to be determined 01/12/2003 08/07/2009 Overview: Per Lipid Taxonomy. documented as of this encounter (statuses as of 08/19/2023) Immunizations Name Administration Dates Next Due COVID-19 [...] Years Used Date Smoking Tobacco: Every Day Cigars Smokeless Tobacco: Never Comments:Now down to 1/2 pac k/day of small cigars Alcohol Use Standard Drinks/Week Comments Not Currently 0 (1 standard drink = 0.6 oz pur e alcohol) occas. Sex and Gender Information Value Date Recorded Sex Assigned at Not on file Gender Identity Not on file Sexual Orientation Not on file Job Start Date Occupation Industry Not on file Not on file Not on file documented as of this encounter Functional Status Functional Status Response Date of Assess ment Are you deaf or do you have serious difficulty h earing? No 03/20/2023 Are you blind or do you have serious difficulty seeing, even when wearing glasses? No 03/20/2023 Do you have serious difficul ty walking or climbing stairs? (5 years old or older) No 03/20/2023 Do you have difficulty dress ing or bathing? (5 years old or older) No 03/20/2023 Because of a physical, menta l, or emotional condition, do you have difficulty doing errands alone such as visiting a doctor s office or shopping? (15 years old or older) No 03/20/20 23 Cognitive Status Response Date of Assessm ent Because of a physical, menta l, or emotional condition, do you have serious difficulty concentrating, remembering, or making decisions? (5 years old or older) No 03/20/2023 documented as of this encounter Progress Notes * Kristen Menjivar, health records technology teacher - 08/19/2023 12:25 PM EST Patient Phone Numbers Attempt 1 Left message reminder blood work is due. Follow up in 2 week(s) for results. Thank you, Kristen Menjivar Photogrammetric Surveyor 08/19/2023,12:25 PM documented in this encounter Plan of Treatment Upcoming Encounters Date Type Department Care Team (Late st Contact Info) Description 09/01/2023 10:30 AM EST Imaging Vascular Lab, [facility] 2nd [facility], [address] [place] [address] 09/02/2023 6:30 AM EST Pharmacy Neurology, [place] [address] [place] [phone] [place], Pharmacist Neurology [address], [place] [phone] 09/04/2023 10:00 AM EST Telemedicine Neurosurgery, [place] [address], [place] [phone] Francois Henry PA-C [address] [facility] [place] [phone] Health Maintenance Due Date Last Done Comments DISCUSS TOBACCO CESSATION (REFER TO SMARTSET #0624) 1940 Depression Screening 1951 Alpha-1 Antitrypsin 1957 DTaP,Tdap,and Td Vaccines (1 - Tdap) 1958 Zoster Vaccines (1 of 2) 1989 *COPD SEVERITY VERIFIED BY PFT 03/21/2023 COVID-19 Vaccine (2022- season) 2023 06/15/2021, 11/03/2020, 10/06/2020 Influenza Vaccine (FLU shot) (#1) 2023 07/17/2022, 05/22/2022, 10/08/2021, Additional history exists O2 ASSESSMENT COMPLETED IN PAST YEAR FOR COPD 02/28/2024 02/27/2023 AAA Monitoring 05/21/2024 05/21/2023 Pneumococcal Vaccine: 65+ Years Completed 12/02/2022, 06/05/2020, 11/03/2014, Additional history exists GARDASIL-HPV IMMUNIZATION SERIES Aged Out No longer eligible based on patient's age to complete this topic Hepatitis B Aged Out No longer eligi ble based on patient's age to complete this topic MENINGOCOCCAL (MENACTRA/MENVEO) Aged Out No longer eligible based on patient's age to complete this topic documented as of this encounter Medical Devices Implanted Type Area Hospitality Manager Device Identifier Shelf Expiration Date Model / Serial / Lot Stent 7x40 Precise [id number] - [id number] Implanted:Qty : 1 on 02/27/2023 by Bennett Quevedo MD at [facility] Left: Carotid CORDIS [place] [id number] 12/23/2023 [id number] / / [id number] documented as of this encounter Visit Diagnoses Diagnosis Encounter for long-term current use of medication- Primary documented in this encounter Advance Directives Documents on File Type Date Recorded Patient Research Manufacturing Operator Expl anation Advance Directives and Living Will 02/22/2023 ADVANCE DIRECTIVE / LIVING WILL Power of Table Inspector 02/22/2023 Thania Regalado POWER OF A TTORNEY [...] the patient have Health Care Power of Table Inspector? No Code Status History Code Status Date [...] the patient have Health Care Power of Table Inspector? No Healthcare Agents on File Name Relationship Healthcare Agent Relationship Communication Thania Regalado Significant Other Health Care Ag ent (per Health Care Power of Table Inspector document) Care Teams Outside Machinist Helper Relationship Specialty Start Date End Date James Madsen PA-C [address] [place] [address] [place] [address] PCP - General Physician Rolls Baker 02/24/22 documented as of this encounter
--- OUTSIDE RECORDS SUMMARY | 2023-08-24 16:50 | External Medical Summary | Summary of Care ---
Author Name Unknown Organization [facility] Address [address] [place] [address] Phone [phone] Care Team Providers Care Tile Layer Helper Name Role Phone James Madsen PA-C Primary Care Provider + Reason for Visit * Reason Onset Date Comments Referral Requested by Specialist 04/03/2023 Encounter Details Date Type Department Care Team (Late st Contact Info) Description 04/03/2023 Telephone [facility] [address] [place] [address] James Madsen PA-C [address] [facility] [address] Referral Requested by Specialist Allergies Active Allergy Reactions Criticality Noted Date Comments Tiotropium Other (Please comment) High 12/20/2019 "Couldn't catch his breath" documented as of this encounter (statuses as of 07/03/2023) Medications Medication Sig Dispensed Refills Start Date [...] Additional Information Patient not taking.Reported on 04/19/2023 documented as of this encounter (statuses as of 07/03/2023) Active Problems Problem Noted Date Diagnosed Date [...] aortic aneurysm without rupture 2020 Atherosclerosis of [place] of right lower extremity with [...] myocardial infarct 03/16/2009 Overview: Modified by Acute [place] Protocol #5. GERD (gastroesophageal reflux disease) 3 GENERAL OSTEOARTHROSIS 01/12/2003 Major depression, single episode 01/12/2003 Tobacco use disorder 01/12/2003 Seizure disorder 09/21/2002 BPH (benign prostatic hyperplasia) Chronic neck pain documented as of this encounter (statuses as of 07/03/2023) Resolved Problems Problem Noted Date Diagnosed Date Resolved Date F/u for non Q wave myocardial infarction 01/12/2003 03/16/2009 Overview: Modified by Acute [place] Protocol #5. Dyslipidemia, goal to be determined 01/12/2003 08/07/2009 Overview: Per Lipid Taxonomy. documented as of this encounter (statuses as of 07/03/2023) Immunizations Name Administration Dates Next Due COVID-19 [...] (15 years old or older) No 03/20/20 Cognitive Status Response Date of Assessm ent Because of a physical, menta l, or emotional condition, do you have serious difficulty concentrating, remembering, or making decisions? (5 years old or older No 03/20/2023 documented as of this encounter Miscellaneous Notes * Telephone Encounter - Mary, Neuro Referral - 04/03/2023 6:07 AM EDT Patient with upcoming neurology appointment. Please FAX referral order documented in this encounter Plan of Treatment Upcoming Encounters Date Type Department Care Team (Late st Contact Info) Description 08/19/2023 6:30 AM EST Pharmacy Neurology, [place] [address] [place] [phone] [place], Pharmacist Neurology [address] [place] [address] 08/19/2023 10:20 AM EST Laboratory Outpatient Laboratory, [place] [address] [place] [phone] [place], Lab B1a [address] [place] [address] 09/01/2023 10:30 AM EST Imaging Vascular Lab, [facility] 2nd [facility], [address] [place] [address] 09/04/2023 10:00 AM EST Telemedicine Neurosurgery, [place] [address] [place] [address] Francois Henry PA-C [address] [place], [place] [phone] Health Maintenance Due Date Last Done Comments DISCUSS TOBACCO CESSATION (REFER TO SMARTSET #5882) 1940 Depression Screening 1951 Alpha-1 Antitrypsin 1957 [...] this encounter Medical Devices Implanted Type Area Cytologist Device Identifier Shelf Expiration Date Model / Serial / Lot Stent 7x40 Precise [id number] - [id number] Implanted:Qty : 1 on 02/27/2023 by Bennett Quevedo MD at [facility] Left: Carotid CORDIS [place] [id number] 12/23/2023 [id number] / / [id number] documented as of this encounter Additional Health Concerns Infection Onset Date Last Indicated Resolved Time Respiratory Rule-Out 05/11/2023 05/11/2023 023 6:30 PM EDT COVID-19 Rule-Out 05/11/2023 05/11/2023 05/11/2023 6:30 PM EDT documented as of this encounter Advance Directives Documents on File Type Date Recorded Patient Ms Sql Developer Expl anation Advance Directives and Living Will 02/22/2023 ADVANCE DIRECTIVE / LIVING WILL Power of Tile Layer Helper 02/22/2023 Thania Regalado POWER OF A TTORNEY [...] the patient have Health Care Power of Tile Layer Helper? No Code Status History Code Status Date [...] the patient have Health Care Power of Tile Layer Helper? No Healthcare Agents on File Name Relationship Healthcare Agent Relationship Communication Thania Regalado Significant Other Health Care Ag ent (per Health Care Power of Tile Layer Helper document) Care Teams Tile Layer Helper Relationship Specialty Start Date End Date James Madsen PA-C [address] [address] [place] [address] PCP - General Physician Automatic Lathe Tender 02/24/22 documented as of this encounter
--- OUTSIDE RECORDS SUMMARY | 2023-08-24 16:50 | External Medical Summary ---
Author Name Unknown Address Unknown Organization K1G:[facility] - [address] [place] [phone] Laboratory Report Ordering Provider Test Date Status BELKIS SANDERSON 06/08/2023 16:29:56 Final Observation Date Value Abnormality Reference (Units ) Status CK 06/08/2023 16:29:56 86 [id number] (U/ L) Final Performing Location [facility] - [address] [place] [phone]
--- OUTSIDE RECORDS SUMMARY | 2023-08-24 16:50 | External Medical Summary | Summary of Care ---
Author Name Unknown Organization [facility] Address [address] [place] [address] Phone [phone] Care Team Providers Care Commercial Lending Assistant Name Role Phone James Madsen PA-C Primary Care Provider + Reason for Visit * Reason Onset Date Comments Referral Requested by Specialist 03/06/2023 Encounter Details Date Type Department Care Team Description 03/06/2023 Telephone [facility] [address] [place] [address] James Madsen PA-C [address] [place] [address] Referral Requested by Specialist Allergies Active Allergy Reactions Severity Noted Date Comments Tiotropium Other (Please comment) High 12/20/2019 "Couldn't catch his breath" documented as of this encounter (statuses as of 06/05/2023) Medications Medication Sig Dispensed Refills Start Date [...] as of this encounter (statuses as of 06/05/2023) Active Problems Problem Noted Date COPD with [...] aneurysm without ruptur e 06/19/2021 Atherosclerosis of [place] of right lower extremity with [...] myocardial infarct 03/16/2009 Overview: Modified by Acute [place] Protocol #5. GERD (gastroesophageal reflux disease) 0 01/12/2003 GENERAL OSTEOARTHROSIS 01/12/2003 Major depression, single episode 003 Tobacco use disorder 01/12/2003 Seizure disorder 09/21/2002 BPH (benign prostatic hyperplasia) Chronic neck pain documented as of this encounter (statuses as of 06/05/2023) Resolved Problems Problem Noted Date Resolved Date 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 Dyslipidemia, goal to be determined 01/12/2003 08/07/2009 Overview: Per Lipid Taxonomy. documented as of this encounter (statuses as of 06/05/2023) Immunizations Name Administration Dates Next Due COVID-19 [...] Notes * Telephone Encounter - Neuro Referral [facility] - 03/06/2023 8:24 AM EDT Patient with upcoming neurology appointment. Please FAX referral order documented in this encounter Plan of Treatment Upcoming Encounters Date Type Specialty Care Team Description 08/19/2023 Pharmacy Neurology [place], Pharmacist Neurology [address] [place] [address] 08/19/2023 Laboratory Laboratory [place], Lab B1a [address] [place] [address] 09/01/2023 Imaging Radiology 09/04/2023 Telemedicine Neurological Surgery Francois Henry PA-C [address] [place], [place] [phone] Health Maintenance Due Date Last Done Comments DISCUSS TOBACCO CESSATION (REFER TO SMARTSET #1782) 1940 Depression Screening 1951 AAA Monitoring 1957 Alpha-1 Antitrypsin 1957 DTaP,Tdap,and Td Vaccines (1 - Tdap) 1958 Zoster Vaccines (1 of 2) 1989 *COPD SEVERITY VERIFIED BY PFT 03/21/2023 COVID-19 Vaccine (4 - 2022- season) 2023 06/15/2021, 11/03/2020, 10/06/2020 Influenza Vaccine (FLU shot) (#1) 2023 07/17/2022, 05/22/2022, 10/08/2021, Additional history exists O2 ASSESSMENT COMPLETED IN PAST YEAR FOR COPD 02/28/2024 02/27/2023 Pneumococcal Vaccine: 65+ Years Completed 06/05/2020, 11/03/2014, [...] this encounter Medical Devices Implanted Type Area Retail Cosmetics Sales Beauty Advisor Device Identifier Shelf Expiration Date Model / Serial / Lot Stent 7x40 Precise [id number] - [id number] Implanted:Qty : 1 on 02/27/2023 by Bennett Quevedo MD at [facility] Left: Carotid CORDIS [place] [id number] 12/23/2023 [id number] / / [id number] documented as of this encounter Additional Health Concerns Infection Onset Date Last Indicated Resolved Time Respiratory Rule-Out 03/19/2023 03/19/2023 023 9:59 PM EDT COVID-19 Rule-Out 03/19/2023 03/19/2023 03/19/2023 9:59 PM EDT Respiratory Rule-Out 05/11/2023 05/11/2023 023 6:30 PM EDT COVID-19 Rule-Out 05/11/2023 05/11/2023 05/11/2023 6:30 PM EDT documented as of this encounter Advance Directives Documents on File Type Date Recorded Patient Diagrammer Expl anation Advance Directives and Living Will 02/22/2023 ADVANCE DIRECTIVE / LIVING WILL Power of Boiler House Supervisor 02/22/2023 Thania Regalado POWER OF A TTORNEY [...] the patient have Health Care Power of Boiler House Supervisor? No Code Status History Code Status Date [...] the patient have Health Care Power of Boiler House Supervisor? No Healthcare Agents on File Name Relationship Healthcare Agent Relationship Communication Thania Regalado Significant Other Health Care Ag ent (per Health Care Power of Boiler House Supervisor document) Care Teams Commercial Lending Assistant Relationship Specialty Start Date End Date James Madsen PA-C [address] [address] [place] [address] PCP - General Physician Grading Machine Feeder 02/24/22 documented as of this encounter
--- OUTSIDE RECORDS SUMMARY | 2023-08-24 16:50 | External Medical Summary ---
Author Name Unknown Address Unknown Organization K1G:[facility] - [address] [place] [phone] Laboratory Report Ordering Provider Test Date Status BELKIS SANDERSON 06/08/2023 16:29:56 Final Observation Date Value Abnormality Reference (Units ) Status Troponin T 06/08/2023 16:29:56 56 Above high normal < =22 (ng/L) Final Performing Location [facility] - [address] [place] [phone]
--- OUTSIDE RECORDS SUMMARY | 2023-08-24 16:50 | External Medical Summary | Summary of Care ---
Author Name Unknown Organization [facility] Address [address] [place] [address] Phone [phone] Care Team Providers Care Airframe And Powerplant Mechanic Name Role Phone James Madsen PA-C Primary Care Provider + Reason for Visit * Auth/Cert Specialty Diagnoses / Procedures Referred By Nickie davis Referred To Contact Referral ID Status Reason Start Date Expiration Date Visits Re quested Visits Authorized [id number] Encounter Details Date Type Department Care Team Description 06/08/2023 Emergency [facility] Emergency Department ([facility]) [address] [place], [place] [id number] Grecia Cedeño, DO [address] [place] [address] Weakness (Primary Dx) Allergies Active Allergy Reactions Severity Noted Date Comments Tiotropium Other (Please comment) High 12/20/2019 "Couldn't catch his breath" documented as of this encounter (statuses as of 06/09/2023) Medications Medication Sig Dispensed Refills Start Date [...] Additional Information Patient not taking.Reported on 04/19/2023 HYDROcodone-Acetam inophen 10-325 MG Oral Tablet Take 1 Tablet by mouth every 8 hours as needed for Pain, Moderate. 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 Dyslipidemia, goal to be determined 01/12/2003 08/07/2009 Overview: Per Lipid Taxonomy. documented as of this encounter (statuses as of 06/09/2023) Immunizations Name Administration Dates Next Due COVID-19 [...] on file documented as of this encounter Last Filed Vital Signs Vital Sign Reading Time Taken Comments Blood Pressure 121/65 06/08/2023 6:00 PM EDT Pulse 79 06/08/2023 6:00 PM EDT Temperature 36.6 C (97.9 F) 06/08/2023 3:20 PM ED T Respiratory Rate 22 06/08/2023 6:00 PM EDT Oxygen Saturation 97% 06/08/2023 6:00 PM EDT Inhaled Oxygen Concentration - - Weight - - Height - - Body Mass Index - - documented in this encounter Functional Status Functional Status Response [...] No 03/20/2023 documented as of this encounter Discharge Instructions * Discharge Instructions* Grecia Cedeño DO - 06/08/2023 6:40 PM EDT Please return if you have any questions, concerns, or your symptoms worsen or change. documented in this encounter ED Notes * Greica Cedeño DO - 06/08/2023 6:40 PM EDT HISTORY OF PRESENT ILLNESS James Ibarra is a 83 year old male who presents to the ED for evaluation of weakness. The patient was seen at 06/08/23 1525. Patient is here complaining of weakness. He states that he has been getting progressively more weak. He is scheduled to have vascular surgery on bilateral legs. He states he noticed swelling in his ankles. He has been following with his vascular surgeon for this. Heis concerned that something else is going on and that he needs medication. Patient denies fever chills. He denies shortness of breath. He denies nausea or vomiting. He has no other complaints at thistime. Review of Systems Constitutional: Negative for activity change, chills and fever. HENT: Negative for ear pain and sore throat. Eyes: Negative for pain and redness. Respiratory: Negative for cough, shortness of breath and wheezing. Cardiovascular: Negative for chest pain and leg swelling. Gastrointestinal: Negative for abdominal pain, nausea and vomiting. Genitourinary: Negative for dysuria and hematuria. Musculoskeletal: Negative for back pain and neck pain. Skin: Negative for rash and wound. Neurological: Positive for weakness. Negative for syncope and headaches. Psychiatric/Behavioral: Negative for self-injury and suicidal ideas. The patient's allergies, past history, and medications were reviewed. PHYSICAL EXAM Initial Vitals (see all): BP 111/65 | Pulse 89 | Resp 22 | Temp 97.9 | O2 95 %, Room Air, None | Weight 40 kg | Height 172.7 cm | BMI 13.41 kg/m2 Initial Pain Assessment (see all): 7 (severe pain)/10, Tightness, location: R leg ([facility] Scale 0-10) Physical Exam Vitals and nursing note reviewed. Constitutional: Appearance: Normal appearance. HENT: Head: Normocephalic and atraumatic. Nose: Nose normal. Mouth/Throat: Mouth: Mucous membranes are moist. Eyes: Extraocular Movements: Extraocular movements intact. Cardiovascular: Rate and Rhythm: Normal rate and regular rhythm. Pulses: Normal pulses. Heart sounds: Normal heart sounds. No murmur heard. Pulmonary: Effort: Pulmonary effort is normal. Breath sounds: Normal breath sounds. No wheezing or rhonchi. Abdominal: General: Abdomen is flat. Bowel sounds are normal. Palpations: Abdomen is soft. Tenderness: There is no abdominal tenderness. There is no guarding or rebound. Musculoskeletal: General: Normal range of motion. Cervical back: Normal range of motion and neck supple. Skin: General: Skin is warm and dry. Neurological: General: No focal deficit present. Mental Status: He is alert and oriented to person, place, and time. Psychiatric: Mood and Affect: Mood normal. Behavior: Behavior normal. PROCEDURES AND TREATMENTS ED Orders | ED Results MEDICAL DECISION MAKING Nursing notes and vital signs were reviewed. ED Course as of 06/08/23 1840 Sun Jun 08, 2023 1835 Comprehensive Metabolic Panel(!) BUN is slightly elevated but at patient's baseline. [LH] 1836 Troponin T, High Sensitivity(!) Troponin stable x2 [LH] 1836 Lactate, Whole Blood with Reflex if Abnormal Normal [LH] 1836 CK Normal [LH] 1836 CBC with WBC Differential(!) Hemoglobin is slightly decreased at 10.9 but at patient's baseline. [LH] ED Course User Index [LH] Grecia Cedeño DO Patient was seen and examined. Basic laboratory work was obtained on the patient. Patient's family is very concerned that he will not be able to have his surgery that is scheduled for July 03. Iexplained to the patient at this time there laboratory work was at their baseline. The patient has multiple follow-up scheduled with Cardiology pulmonology and his family doctor to clear him for surgery. I encouraged the to keep those appointments so he would be able to have a surgery in June. I explained that even after those appointments he may not be considered a surgical candidate and he may have to consider other options for his pain. Both the patient and his significant other expressed understanding and will keep the appointments. I explained that we are here at any time if other symptoms worsened or changed and if he needed to be re-evaluated. They expressed understanding and left the emergency department with all their questions answered. Amount and/or Complexity of Data Reviewed Labs: ordered. Decision-making details documented in ED Course. ECG/medicine tests: ordered. Clinical Impressions Weakness Disposition Discharged. The patient's condition at disposition was: stable. Grecia Cedeño * Anna Reyes RN - 06/08/2023 3:40 PM EDT Patient had a maxwell placed in right hip to knee in October and has had swelling that is progressively getting worse. C/o pain 7/10 with no relief and occasional SOB with exertion. documented in this encounter Miscellaneous Notes * Pt Handout (on AVS) - Grecia Cedeño DO - 06/08/2023 6:40 PM EDT [id number] Weakness with Uncertain Cause Based on your exam today, the exact cause of your weakness is not clear. But your weakness does notseem to be a sign of a serious illness at this time. Keep an eye on your symptoms and get medical advice as directed below. Home care Rest at home today. Don't overexert yourself. Take any medicine as prescribed. For the next few days, drink extra fluids unless your healthcare provider wants you to restrict fluids for other reasons. Don't skip meals. Unless otherwise directed, continue to take any prescription medicines. Contact your healthcare provider if you have any questions or concerns. Follow-up care Follow up with your healthcare provider, or as advised. When to get medical advice Call your healthcare provider right away if any of the following occur: Symptoms get worse Symptoms don't start getting better within 2 days Fever of 100.4 F (38 C) or higher, or as directed by your healthcare provider Call 911 Call 911 if any of the following occur: Chest, arm, neck, jaw, or upper back pain Trouble breathing Numbness or weakness of the face, one arm, or one leg Slurred speech, confusion, or trouble speaking, walking, or seeing Blood in vomit or stool (black or red color) Severe headache Loss of consciousness, such as fainting Last Reviewed Date: 08/25/202219996751-4145 [employer]. All rights reserved. This information is not intended as a substitute for professional medical care. Always follow your healthcare professional's instructions. documented in this encounter Plan of Treatment Upcoming Encounters Date Type Specialty Care Team Description 08/19/2023 Pharmacy [facility]rology [place], Pharmacist Neurology [address] [place] [address] 08/19/2023 Laboratory Laboratory [place], Lab B[address]a [address] [place] [address] 09/01/2023 Imaging Radiology 09/04/2023 Telemedicine Neurological Surgery Francois Henry PA-C [address] [place] [address] Scheduled Orders Name Type Priority Associated Diagnoses Orde r Schedule EKG EKG STAT Weakness Perform Now for 1 Occurrences starting 06/08/2023 until 06/08/2023 Health Maintenance Due Date Last Done Comments DISCUSS TOBACCO CESSATION (REFER TO SMARTSET #8255) 1940 Depression Screening 1951 Alpha-1 Antitrypsin 1957 DTaP,Tdap,and Td Vaccines (1 - Tdap) 1958 Zoster Vaccines (1 of 2) 1989 *COPD SEVERITY VERIFIED BY PFT 03/21/2023 COVID-19 Vaccine ( season) 2023 06/15/2021, 11/03/2020, 10/06/2020 Influenza Vaccine [...] this encounter Medical Devices Implanted Type Area Scrubbing Machine Operator Device Identifier Shelf Expiration Date Model / Serial / Lot Stent 7x40 Precise [id number] - [id number] Implanted:Qty : 1 on 02/27/2023 by Bennett Quevedo MD at [facility] Left: Carotid CORDIS DAKOTA [id number] 12/23/2023 [id number] / / [id number] documented as of this encounter Procedures Procedure Name Priority Date/Time Associated Diagnosis Comments TROPONIN T, HIGH SENSITIVITY STAT 06/08/2023 5:54 PM EDT LACTATE, WHOLE BLOOD WITH REFLEX IF ABNORMAL STAT 06/08/2023 4:29 PM EDT TROPONIN T, HIGH SENSITIVITY STAT 06/08/2023 4:29 PM EDT COMPREHENSIVE METABOLIC PANEL STAT 06/08/2023 4:29 PM EDT CK STAT 06/08/2023 4:29 PM EDT DIFFERENTIAL, AUTOMATED STAT 06/08/2023 4:05 PM EDT CBC STAT 06/08/2023 4:05 PM EDT CBC STAT 06/08/2023 4:05 PM EDT documented in this encounter Results * (ABNORMAL) TROPONIN T, HIGH SENSITIVITY (06/08/2023 5:54 PM EDT) Pathologist [facility] [place] Troponin T, High Sensitivity 54(H) <=22 ng/L 06/08/2023 6:25 PM EDT LABORATORY [facility] Blood Venous blood specimen / Unknown Venipuncture / Unknown 06/08/2023 5:54 PM EDT 06/08/2023 5:55 PM EDT Grecia Cedeño LAB BLOOD ORDERABL ES Performing Organization Address City/[facility]/ZIP Co de Phone Number LABORATORY [address] [address] * LACTATE, WHOLE BLOOD WITH REFLEX IF ABNORMAL (06/08/2023 4:29 PM EDT) Pathologist [facility] [place] Lactate, Whole Blood 1.2 0.4 - 2.0 mmol/L 06/08/2023 4:57 PM EDT LABORATORY [facility] Blood Venous blood specimen / Unknown Venipuncture / Unknown 06/08/2023 4:29 PM EDT 06/08/2023 4:33 PM EDT Grecia Cedeño LAB BLOOD ORDERABL ES LABORATORY [address] [address] * CK (06/08/2023 4:29 PM EDT) Pathologist [facility] [place] CK 86 39 - 308 U/L 06/08/2023 4:56 PM EDT LABORATORY [facility] Blood Venous blood specimen / Unknown Venipuncture / Unknown 06/08/2023 4:29 PM EDT 06/08/2023 4:32 PM EDT Juanis Cedeño LAB BLOOD ORDERABL ES Performing Organization Address [facility]/ZIP Co de Phone Number LABORATORY [address] [address] * (ABNORMAL) TROPONIN T, HIGH SENSITIVITY (06/08/2023 4:29 PM EDT) Pathologist [facility] [place] Troponin T, High Sensitivity 56(H) <=22 ng/L 06/08/2023 4:57 PM EDT LABORATORY [facility] Blood Venous blood specimen / Unknown Venipuncture / Unknown 06/08/2023 4:29 PM EDT 06/08/2023 4:32 PM EDT Juanis Hoffman LAB BLOOD ORDERABL ES Performing Organization Address [facility]/ZIP Co de Phone Number LABORATORY [address] [address] * (ABNORMAL) COMPREHENSIVE METABOLIC PANEL (06/08/2023 4:29 PM EDT) BUN 24(H) 6 - 20 mg/dL 06/08/2023 4:56 PM EDT LABORATORY [facility] Creatinine 0.6 0.6 - 1.2 mg/dL 06/08/2023 4:56 PM EDT LABORATORY [facility] Estimated Glomerular Filtration Rate >90 >=60 mL/min 06/08/2023 4:56 PM EDT LABORATORY [facility] Comment:eGFR is calculated b ased on the CKD-EPI 2020 equation Sodium 140 135 - 146 mmol/L 06/08/2023 4:56 PM EDT LABORATORY [facility] Potassium 4.1 3.5 - 5.1 mmol/L 06/08/2023 4:56 PM EDT LABORATORY [facility] Chloride 104 98 - 107 mmol/L 06/08/2023 4:56 PM EDT LABORATORY [facility] CO2 28 22 - 32 mmol/L 06/08/2023 4:56 PM EDT LABORATORY [facility] Anion Gap 8 7 - 15 mmol/L 06/08/2023 4:56 PM EDT LABORATORY [facility] Glucose 102 70 - 120 mg/dL 06/08/2023 4:56 PM EDT LABORATORY [facility] Albumin 3.3(L) 3.8 - 5.0 g/dL 06/08/2023 4:56 PM EDT LABORATORY [facility] AST 23 10 - 50 U/L 06/08/2023 4:56 PM EDT LABORATORY [facility] Alkaline Phosphatase 117 35 - 130 U/L 06/08/2023 4:56 PM EDT LABORATORY [facility] Bilirubin, Total 0.2 <=1.2 mg/dL 06/08/2023 4:56 PM EDT LABORATORY [facility] Calcium 8.6 8.4 - 10.2 mg/dL 06/08/2023 4:56 PM EDT LABORATORY [facility] Protein 5.8(L) 6.0 - 8.3 g/dL 06/08/2023 4:56 PM EDT LABORATORY [facility] ALT 25 10 - 50 U/L 06/08/2023 4:56 PM EDT LABORATORY [facility] Blood Venous blood specimen / Unknown Venipuncture / Unknown 06/08/2023 4:29 PM EDT 06/08/2023 4:32 PM EDT Grecia Cedeño DO LAB BLOOD ORDERABL ES LABORATORY [facility] [address] [place] [address] * DIFFERENTIAL, AUTOMATED (06/08/2023 4:05 PM EDT) WBC 6.99 4.00 - 10.80 K/uL 06/08/2023 4:41 PM EDT LABORATORY [facility] Neutrophils % 70.1 40.0 - 75.0 % 06/08/2023 4:41 PM EDT LABORATORY [facility] Lymphocytes % 18.6 18.0 - 42.0 % 06/08/2023 4:41 PM EDT LABORATORY [facility] Monocytes % 7.9 1.0 - 11.0 % 06/08/2023 4:41 PM EDT LABORATORY [facility] Eosinophils % 3.0 0.0 - 6.0 % 06/08/2023 4:41 PM EDT LABORATORY [facility] Basophils % 0.4 0.0 - 2.0 % 06/08/2023 4:41 PM EDT LABORATORY [facility] Absolute Neutrophils 4.90 1.80 - 7.70 K/uL 06/08/2023 4:41 PM EDT LABORATORY [facility] Absolute Lymphocytes 1.30 1.00 - 4.80 K/ul 06/08/2023 4:41 PM EDT LABORATORY [facility] Absolute Monocytes 0.55 0.00 - 1.10 K/uL 06/08/2023 4:41 PM EDT LABORATORY [facility] Absolute Eosinophils 0.21 0.00 - 0.70 K/uL 06/08/2023 4:41 PM EDT LABORATORY [facility] Absolute Basophils 0.03 0.00 - 0.20 K/uL 06/08/2023 4:41 PM EDT LABORATORY [facility] Blood Venous blood specimen / Unknown Venipuncture / Unknown 06/08/2023 4:05 PM EDT 06/08/2023 4:33 PM EDT Grecia Cedeño DO LAB BLOOD ORDERABL ES LABORATORY [place] [id number] [place] [address] * (ABNORMAL) CBC (06/08/2023 4:05 PM EDT) [facility] WBC 6.99 4.00 - 10.80 K/uL 06/08/2023 4:41 PM EDT LABORATORY [facility] RBC 3.17 4.50 - 5.25 M/uL 06/08/2023 4:41 PM EDT LABORATORY [facility] HGB 10.9(L) 14.0 - 16.8 g/dL 06/08/2023 4:41 PM EDT LABORATORY [facility] HCT 33.2(L) 40.0 - 48.4 % 06/08/2023 4:41 PM EDT LABORATORY [facility] MCV 104.7 82.0 - 99.5 fL 06/08/2023 4:41 PM EDT LABORATORY [facility] MCH 34.4 27.0 - 34.0 pg 06/08/2023 4:41 PM EDT LABORATORY [facility] MCHC 32.8 32.0 - 36.0 g/dL 06/08/2023 4:41 PM EDT LABORATORY [facility] RDW 15.1 11.5 - 15.5 % 06/08/2023 4:41 PM EDT LABORATORY [facility] PLT 319 140 - 400 K/uL 06/08/2023 4:41 PM EDT LABORATORY [facility] MPV 10.9 6.6 - 11.1 fL 06/08/2023 4:41 PM EDT LAB[facility]ATORY [facility] Blood Venous blood specimen / Unknown Venipuncture / Unknown 06/08/2023 4:05 PM EDT 06/08/2023 4:33 PM EDT Grecia Cedeño DO LAB BLOOD ORDERABL ES LABORATORY [place] [address] [place] [address] documented in this encounter Visit Diagnoses Diagnosis Weakness- Primary Other malaise and fatigue documented in this encounter Administered Medications Inactive Administered Medications - up to 3 most recent administrations Medication Order MAR Action Action Date Dose Rate Site NSS 0.9% 1,000 mL bolus infusion Peripheral IV, at 1,000 mL/hr Administer over 60 Minutes, Administer entire volume within 60 minutes or less., ONCE, 1 dose, On Fri06/08/23 at 1615 New Bag 06/08/2023 3:56 PM EDT 1,000 mL 1000 mL/hr documented in this encounter Active and Recently Administered Medications Times are shown in EDT. Scheduled Medication Order 06/06/2023 06/07/2023 06/08/2023 NSS 0.9% 1,000 mL bolus infusion (COMPLETED) Peripheral IV, at 1,000 mL/hr Administer over 60 Minutes, Administer entire volume within 60 minutes or less., ONCE, 1 dose, On Fri06/08/23 at 1615 1556 (New Bag - Prov ider: Smita Schweikart, RN)[phone] (Stopped - Provider: Peace Bridges RN) documented in this encounter Advance Directives Documents on File Type Date Recorded Patient Booth Cleaner Expl anation Advance Directives and Living Will 02/22/2023 ADVANCE DIRECTIVE / LIVING WILL Power of Pharmacist Hospital 02/22/2023 Thania Regalado POWER OF A TTORNEY [...] the patient have Health Care Power of Pharmacist Hospital? No Code Status History Code Status Date [...] the patient have Health Care Power of Pharmacist Hospital? No Healthcare Agents on File Name Relationship Healthcare Agent Relationship Communication Thania Regalado Significant Other Health Care Ag ent (per Health Care Power of Pharmacist Hospital document) Care Teams Airframe And Powerplant Mechanic Relationship Specialty Start Date End Date James Madsen PA-C [address] [facility] [place] [id number] PCP - General Physician Mainframe Systems Administrator 02/24/22 documented as of this encounter
--- OUTSIDE RECORDS SUMMARY | 2023-08-24 16:50 | External Medical Summary | Summary of Care ---
Author Name Unknown Organization [facility] Address [address] [place] [address] Phone [phone] Care Team Providers Care Toxicology Teacher Name Role Phone James Madsen PA-C Primary Care Provider + Reason for Visit * Reason Onset Date Comments Referral Requested by Specialist 03/07/2023 Encounter Details Date Type Department Care Team Description 03/07/2023 Telephone [facility] [address] [place] [address] James Madsen PA-C [address] [place] [address] Referral Requested by Specialist Allergies Active Allergy Reactions Severity Noted Date Comments Tiotropium Other (Please comment) High 12/20/2019 "Couldn't catch his breath" documented as of this encounter (statuses as of 06/06/2023) Medications Medication Sig Dispensed Refills Start Date [...] as of this encounter (statuses as of 06/06/2023) Active Problems Problem Noted Date 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 GERD (gastroesophageal reflux disease) 0 01/12/2003 GENERAL OSTEOARTHROSIS 01/12/2003 Major depression, single episode 003 Tobacco use disorder 01/12/2003 Seizure disorder 09/21/2002 BPH (benign prostatic hyperplasia) Chronic neck pain documented as of this encounter (statuses as of 06/06/2023) Resolved Problems Problem Noted Date Resolved Date F/u for non Q wave myocardial infarction 003 03/16/2009 Overview: Modified by Acute DC Protocol #5. Dyslipidemia, goal to be determined 01/12/2003 08/07/2009 Overview: Per Lipid Taxonomy. documented as of this encounter (statuses as of 06/06/2023) Immunizations Name Administration Dates Next Due COVID-19 [...] Notes * Telephone Encounter - Neuro Referral [facility] - 03/07/2023 5:56 AM EDT Patient with upcoming neurology appointment. Please FAX referral order documented in this encounter Plan of Treatment Upcoming Encounters Date Type Specialty Care Team Description 08/19/2023 Pharmacy Neurology [place], Pharmacist Neurology [address] [place] [address] 08/19/2023 Laboratory Laboratory [place], Lab B[address]a [address] [place] [address] 09/01/2023 Imaging Radiology 09/04/2023 Telemedicine Neurological Surgery Francois Henry PA-C [address], [place] [id number] Health Maintenance Due Date Last Done Comments DISCUSS TOBACCO CESSATION (REFER TO SMARTSET #7804) 1940 Depression Screening 1951 AAA Monitoring 1957 [...] this encounter Medical Devices Implanted Type Area Turbine Room Attendant Device Identifier Shelf Expiration Date Model / Serial / Lot Stent 7x40 Precise [id number] - [id number] Implanted:Qty : 1 on 02/27/2023 by Bennett Quevedo MD at [facility] Left: Carotid C[employer] [id number] 12/23/2023 [id number] / / [id number] documented as of this encounter Additional Health Concerns Infection Onset Date Last Indicated Resolved Time Respiratory Rule-Out 03/19/2023 03/19/2023 023 9:59 PM EDT COVID-19 Rule-Out 03/19/2023 03/19/2023 03/19/2023 9:59 PM EDT Respiratory Rule-Out 05/11/2023 05/11/2023 023 6:30 PM EDT COVID-19 Rule-Out 05/11/2023 05/11/2023 05/11/2023 6:30 PM EDT documented as of this encounter Advance Directives Documents on File Type Date Recorded Patient Customer Supply Coordinator Expl anation Advance Directives and Living Will 02/22/2023 ADVANCE DIRECTIVE / LIVING WILL Power of Lime Mixer Tender 02/22/2023 Thania Regalado POWER OF A TTORNEY [...] the patient have Health Care Power of Lime Mixer Tender? No Code Status History Code Status Date [...] the patient have Health Care Power of Lime Mixer Tender? No Healthcare Agents on File Name Relationship Healthcare Agent Relationship Communication Thania Regalado Significant Other Health Care Ag ent (per Health Care Power of Lime Mixer Tender document) Care Teams Toxicology Teacher Relationship Specialty Start Date End Date James Madsen PA-C [address] [address] [place] [address] PCP - General Physician Guest Services Agent 02/24/22 documented as of this encounter
--- OUTSIDE RECORDS SUMMARY | 2023-08-24 16:50 | External Medical Summary ---
Author Name Unknown Address Unknown Organization K1G:LABORATORY [facility] - [address] [place] [id number] Laboratory Report Ordering Provider Test Date Status BELKIS SANDERSON 06/08/2023 16:05:42 Final Observation Date Value Abnormality Reference (Units ) Status WBC, Total 06/08/2023 16:05:42 6.99 4.00-10.8 0 (K/uL) Final RBC 06/08/2023 16:05:42 3.17 4.50-5.25 (M/uL) Final Hemoglobin 06/08/2023 16:05:42 10.9 Below low normal 14 .0-16.8 (g/dL) Final HCT 06/08/2023 16:05:42 33.2 Below low normal 40. 0-48.4 (%) Final MCV 06/08/2023 16:05:42 104.7 82.0-99.5 (fL) Final MCH 06/08/2023 16:05:42 34.4 27.0-34.0 (pg) Final MCHC 06/08/2023 16:05:42 32.8 32.0-36.0 (g/dL) Final RDW 06/08/2023 16:05:42 15.1 11.5-15.5 (%) Final Platelets 06/08/2023 16:05:42 319 140-400 (K /uL) Final MPV 06/08/2023 16:05:42 10.9 6.6-11.1 ( fL) Final Performing Location LABORATORY [facility] - [address] [place] [phone]
--- OUTSIDE RECORDS SUMMARY | 2023-08-24 16:50 | External Medical Summary | Summary of Care ---
Author Name Unknown Organization [facility] Address [address] [place] [address] Phone [phone] Care Team Providers Care Pet Sitting Name Role Phone James Madsen PA-C Primary Care Provider + Reason for Visit * Reason Onset Date Comments Referral Requested by Specialist 03/12/2023 Encounter Details Date Type Department Care Team Description 03/12/[address] [facility] [address] [place] [address] James Madsen PA-C [address] [id number] Referral Requested by Specialist Allergies Active Allergy Reactions Severity Noted Date Comments Tiotropium Other (Please comment) High 12/20/2019 "Couldn't catch his breath" documented as of this encounter (statuses as of 06/11/2023) Medications Medication Sig Dispensed Refills Start Date [...] as of this encounter (statuses as of 06/11/2023) Active Problems Problem Noted Date COPD with [...] aneurysm without ruptur e 06/19/2021 Atherosclerosis of [place] ar [place] of right lower extremity with [...] myocardial infarct 03/16/2009 Overview: Modified by Acute [place] Protocol #5. GERD (gastroesophageal reflux disease) 0 01/12/2003 GENERAL OSTEOARTHROSIS 01/12/2003 Major depression, single episode 003 Tobacco use disorder 01/12/2003 Seizure disorder 09/21/2002 BPH (benign prostatic hyperplasia) Chronic neck pain documented as of this encounter (statuses as of 06/11/2023) Resolved Problems Problem Noted Date Resolved Date F/u for non Q wave myocardial infarction 003 03/16/2009 Overview: Modified by Acute [place] Protocol #5. Dyslipidemia, goal to be determined 01/12/2003 08/07/2009 Overview: Per Lipid Taxonomy. documented as of this encounter (statuses as of 06/11/2023) Immunizations Name Administration Dates Next Due COVID-19 [...] Notes * Telephone Encounter - Neuro Referral [facility] - 03/12/2023 5:42 AM EDT Patient with upcoming neurology appointment. Please FAX referral order documented in this encounter Plan of Treatment Upcoming Encounters Date Type Specialty Care Team Description 08/19/2023 Pharmacy [facility], Pharmacist Neurology [address] [place] [address] 08/19/2023 Laboratory [facility], Lab B1a [address] [place] [address] 09/01/2023 Imaging Radiology 09/04/2023 Telemedicine Neurological Surgery Francois Henry PA-C [address] [place], [place] [phone] Health Maintenance Due Date Last Done Comments DISCUSS TOBACCO CESSATION (REFER TO SMARTSET #7935) 1940 Depression Screening 1952 Alpha-1 Antitrypsin 1957 [...] this encounter Medical Devices Implanted Type Area Contact Lens Lathe Operator Device Identifier Shelf Expiration Date Model / Serial / Lot Stent 7x40 Precise [id number] - [id number] Implanted:Qty : 1 on 02/27/2023 by Bennett Quevedo MD at [facility] Left: Carotid CORDIS [facility] [id number] 12/23/2023 [id number] / / [id number] documented as of this encounter Additional Health Concerns Infection Onset Date Last Indicated Resolved Time Respiratory Rule-Out 03/19/2023 03/19/2023 023 9:59 PM EDT COVID-19 Rule-Out 03/19/2023 03/19/2023 03/19/2023 9:59 PM EDT Respiratory Rule-Out 05/11/2023 05/11/2023 023 6:30 PM EDT COVID-19 Rule-Out 05/11/2023 05/11/2023 05/11/2023 6:30 PM EDT documented as of this encounter Advance Directives Documents on File Type Date Recorded Patient Bakery Decorator Expl anation Advance Directives and Living Will 02/22/2023 ADVANCE DIRECTIVE / LIVING WILL Power of Physics Tutor 02/22/2023 Thania Regalado POWER OF A TTORNEY [...] the patient have Health Care Power of Physics Tutor? No Code Status History Code Status Date [...] the patient have Health Care Power of Physics Tutor? No Healthcare Agents on File Name Relationship Healthcare Agent Relationship Communication Thania Regalado Significant Other Health Care Ag ent (per Health Care Power of Physics Tutor document) Care Teams Pet Sitting Relationship Specialty Start Date End Date James Madsen PA-C [address] [address] [address] [place] [phone] PCP - General Physician Instrumentation Engineering Technician 02/24/22 documented as of this encounter
--- OUTSIDE RECORDS SUMMARY | 2023-08-24 16:50 | External Medical Summary ---
Author Name UNSPECIFIED Address Unknown Organization [facility] History of Encounters Reason for Assessment: Start of care - f urther visits planned Inpatient discharge facility: Past 14 Da ys: Discharged From Short Stay Acute Hospital Most Recent Inpatient Discharge Date: Functional Assessment Patient Living Situation: Patient lives with other person(s) in the home: Around the clock Patient Has At Least 1 Unhea led Pressure Ulcer At Stage 2 Or Higher: Yes When Dyspneic: With minimal exertio n (e.g., while eating, talking, or performing other ADLs) or with agitation Bowel Incontinence Frequency: Very rarel y or never has bowel incontinence Cognitive Functioning: Requires promptin g (cueing, repetition, reminders) only under stressful or unfamiliar conditions. When Confused (Reported or Observed): In new or complex situations only When Anxious (Reported or Observed): Les s often than daily Cognitive and Behavioral and Psychiatric Symptoms: None Current Ability: Bathing: able to partic ipate in bathing self in shower or tub, but requires presence of another person throughout the bath for assistance or supervision. Current Ability: Ambulation: Able to wal k only with the supervision or assistance of another person at all times. 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
--- OUTSIDE RECORDS SUMMARY | 2023-08-24 16:51 | External Medical Summary ---
Author Name Unknown Address Unknown Organization K1G:LAB[facility]ATORY [facility] [place] - [address] [place] [phone] Laboratory Report Ordering Provider Test Date Status CECILIA BLOOM 05/11/2023 17:22:44 Final Observation Date Value Abnormality Reference (Units ) Status WBC, Total 05/11/2023 17:22:44 7.34 4.00-10.8 0 (K/uL) Final RBC 05/11/2023 17:22:44 3.25 4.50-5.25 (M/uL) Final Hemoglobin 05/11/2023 17:22:44 11.0 Below low normal 14 .0-16.8 (g/dL) Final HCT 05/11/2023 17:22:44 33.7 Below low normal 40. 0-48.4 (%) Final MCV 05/11/2023 17:22:44 103.7 82.0-99.5 (fL) Final MCH 05/11/2023 17:22:44 33.8 27.0-34.0 (pg) Final MCHC 05/11/2023 17:22:44 32.6 32.0-36.0 (g/dL) Final RDW 05/11/2023 17:22:44 13.3 11.5-15.5 (%) Final Platelets 05/11/2023 17:22:44 231 140-400 (K /uL) Final MPV 05/11/2023 17:22:44 10.8 6.6-11.1 ( fL) Final Performing Location LABORATORY [facility] - [address] [place] [phone]
--- OUTSIDE RECORDS SUMMARY | 2023-08-24 16:51 | External Medical Summary ---
Author Name Unknown Address Unknown Organization K01:[facility] [place] [facility] [address] Laboratory Report Ordering Provider Test Date Status ABHIJIT WOLF 05/19/2023 10:25:40 Final Assay designed to measure th e effect of aspirin and it should not be used to detect other platelet functional disorders.

>=550 ARU - Aspirin not detected
< 550 ARU - Aspirin detected

Interfering substances/Test limitations: Do not test patients if on the following medications until platelet function has recovered (timeframe), as they may result in low ARU values; clopidogrel -5 days, ticlopidine- 5 days, prasugrel - 10 days, dipyridamole - 12 hours, cilostazol - 12 hours, Aggrenox (aspirin/dipyridamole) - 10 days, ibuprofen - 8 hours, naproxen - 24 hours, diclofenac - 24 hours, indocin - 24 hours, feldene - 50 hours, tirofiban - 2 days, eptifibatide - 2 days, abciximab - 2 week. Samples may also be affected by low hematocrit (<29%), high hematocrit (>56%), or low platelet counts (<92,000/cmm). Patients on ticagrelor or with inherited platelet disorders have not been studied using this assay and the ability of the assay to detect aspirin usage in these patients is unknown.
null Observation Date Value Abnormality Reference (Units ) Status Platelet aggregation arachidonate induced [Units/volume] in Platelet rich plasma 05/19/2023 10:25:40 387 Below low normal >=550 (ARU) Final Performing Location [place] [facility] [place] [facility] N [facility] [address] [facility] [address]
--- OUTSIDE RECORDS SUMMARY | 2023-08-24 16:51 | External Medical Summary | Summary of Care ---
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 [place] of right lower extremity with [...] myocardial infarct 03/16/2009 Overview: Modified by Acute [place] Protocol #5. GERD (gastroesophageal reflux disease) 0 01/12/2003 GENERAL OSTEOARTHROSIS 01/12/2003 Major depression, single episode 003 Tobacco use disorder 01/12/2003 Seizure disorder 09/21/2002 BPH (benign prostatic hyperplasia) Chronic neck pain documented as of this encounter (statuses as of 04/17/2023) Resolved Problems Problem Noted Date Resolved Date F/u for non Q wave myocardial infarction 003 03/16/2009 Overview: Modified by [facility] [place] Protocol #5. Dyslipidemia, goal to be determined 01/12/2003 08/07/2009 Overview: Per Lipid Taxonomy. documented as of this encounter (statuses as of 04/17/2023) Immunizations Name Administration Dates Next Due COVID-19 [...] Sign Reading Time Taken Comments Blood Pressure 136/70 04/17/2023 11:12 AM EDT Pulse 76 04/17/2023 11:12 AM EDT Temperature 36.3 C (97.3 F) 04/17/2023 11:12 AM E DT Respiratory Rate - - Oxygen Saturation - - Inhaled Oxygen Concentration - - Weight - [...] as of this encounter Progress Notes * Francois Henry PA-C - 04/17/2023 11:20 AM EDT NEUROSURGERY - PROGRESS NOTE [facility], [place] [address] Name: James Ibarra Date: 04/17/2023 Time: 11:20 AM Procedures: 02/24/2023: Diagnostic cerebral angiogram showing severe, >95% left carotid stenosis at the carotid origin (Sae) 02/27/2023: Successful left carotid angioplasty and stenting using a 7 x 40 mm Cordis Precise stent (Sae) James Ibarra is a 83 year old right-handed male presents today in clinic status post above procedures with Dr. Quevedo for a routine follow-up. The patient presents in clinic without complaints. He continues to take aspirin and Plavix as prescribed. He denies any stroke-like symptoms. He does have some bruising on his extremities. 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 | For: Telephonic Visit| Check-out note: James Ibarra needs a carotid duplex before his return visit in early August,. Thanks! Current Medications - Prior to This Encounter Medication Sig Last Dose Discont. Azithromycin 250 MG Oral Tablet (Zithromax) Take 2 tablets by mouth daily until complete oxygen IN GAS Use 2 L/min(Oxygen) as directed at bedtime. Classic 28-0.8 MG Oral Tablet Take 1 Tablet by mouth every morning. Clopidogrel Bisulfate 75 MG Oral Tablet (pLAVix) Take 0.5 (one-half) tablet by mouth in the morning. Midodrine HCl 5 MG Oral Tablet (Proamatine) Take 1 Tablet by mouth three times per day (morning, noon, & before bedtime) Loratadine 10 MG Oral Capsule Take 1 Capsule by mouth in the morning. Patient not taking: Reported on 03/20/2023 tiZANidine HCl 4 MG Oral Capsule Take 1 Capsule by mouth 3 times a day as needed for Muscle spasms. Sucralfate 1 GM/10ML Oral Suspension (Carafate) Take 10 mL by mouth in the morning and 10 mL at noon and 10 mL in the evening and 10 mL before bedtime. Patient not taking: Reported on 03/20/2023 oxyCODONE HCl 5 MG Oral Tablet (Oxy IR) Take 1 Tablet by mouth every 4 hours as needed for Pain, Severe. Patient not taking: Reported on 03/19/2023 traMADol HCl 50 MG Oral Tablet (Ultram) Take by mouth 0.5 Tablets every 6 hours as needed for Pain,Severe (pain intensity 7 to 10/10). Calcium Carbonate-Vitamin D 500-200 MG-UNIT Oral Tablet Take by mouth 1 Tablet at noon AND 1 Tabletin the evening. Do not start before February 26, 2022. GetGo Rolling Walker To assist with proper walking Lidocaine 4 % External Patch (Aspercreme) Place topically on the skin 1 Patch in the morning. Do not start before February 26, 2022. Patient not taking: Reported on 03/20/2023 Vitamin D3 25 MCG (1000 UT) Oral Tablet (Vitamin D3) Take by mouth 2 Tablets in the morning. Do notstart before February 26, 2022. Budesonide-Formoterol Fumarate 160-4.5 MCG/ACT Inhalation Aerosol (Symbicort) Inhale 2 Puffs by mouth in the morning and 2 Puffs before bedtime. Diclofenac Sodium 1 % External Gel (Voltaren) APPLY 1 G TOPICALLY 3 TIMES A DAY Famotidine 20 MG Oral Tablet (Pepcid) TAKE 1 TABLET BY MOUTH DAILY BEFORE A MEAL Fluticasone Propionate 50 MCG/ACT Nasal Suspension (Flonase) SPRAY 2 SPRAYS INTO EACH NOSTRIL EVERYDAY Folic Acid 1 MG Oral Tablet Take 1 Tablet by mouth in the morning. Mirtazapine 30 MG Oral Tablet (Remeron) Take 1 Tablet by mouth at bedtime. Tamsulosin HCl 0.4 MG Oral Capsule (Flomax) Take 2 Capsules by mouth in the morning. acetaminophen (TYLENOL) 325 MG Tablet Take 2 Tabs by mouth every 6 hours as needed for Pain. docusate sodium (COLACE) 100 MG Capsule Take 1 Cap by mouth 2 times a day. polyethylene glycol 3350 (MIRALAX) packet Take 1 Packet by mouth daily. Patient not taking: Reported on 03/20/2023 Albuterol Sulfate (VENTOLIN HFA) 108 (90 Base) MCG/ACT AERS Inhale 2 Puffs by mouth every 4 hours as needed for Shortness of Breath or Wheezing. Aspirin 81 MG Oral Tablet Delayed Release Take 1 Tablet by mouth at bedtime. pantoprazole (PROTONIX) 40 MG TBEC Take 1 Tablet by mouth in the morning and 1 Tablet before bedtime. finasteride (PROSCAR) 5 MG Tablet Take 1 Tablet by mouth in the morning. furosemide (LASIX) 20 MG Tablet Take 1 Tablet by mouth daily as needed (chest pressure / weight gain). KLOR-CON 10 10 MEQ TBCR Take 1 Tablet by mouth in the morning. metoprolol succinate XL (TOPROL XL) 25 MG TB24 Take 0.5 Tablets by mouth in the morning. simvastatin (ZOCOR) 40 MG Tablet Take 1 Tablet by mouth every evening. 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 Dyslipidemia, goal LDL below 100 E78.5 PUD (peptic ulcer disease) K27.9 BPH (benign prostatic hyperplasia) N40.0 Chronic neck pain M54.2, G89.29 Prostatitis, acute N41.0 Pseudogout M11.20 Intractable low back pain M54.59 Ambulatory dysfunction R26.2 Closed compression fracture of L4 lumbar vertebra, initial encounter ([facility]) S32.040A Vitamin D deficiency E55.9 Severe protein-energy malnutrition ([facility]) E43 Calculus of kidney N20.0 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 [place] artery of right lower extremity with intermittent claudication ([facility]) I70.211 COPD with acute exacerbation ([facility]) J44.1 Elevated troponin R77.8 (HFpEF) heart failure with preserved ejection fraction ([facility]) I50.30 Aortic stenosis I35.0 PLAN: Imaging reviewed with patient and significant other present Will have the patient follow-up with a carotid duplex at 6 months post procedure Return to clinic after, telephonic visit Patient encouraged to continue with aspirin and Plavix per pharmacy recommendations Patient and significant other aware of risks as well as the signs and symptoms of concern Patient encouraged to contact department with any questions or concerns I spent a total of 30 minutes on the date of service in preparation, delivery, and documentation ofthe care provided to James Ibarra excluding any time spent in the performance of separatelybilled services. Francois Henry [facility], [place] Lead Physician Electric Motor Analyst, Department of Neurosurgery Electronics Technology Department Chair of Neurosurgery, [facility] 04/17/2023 12:12 PM (This note was completed using the dictation program Fluency Direct. As such, there may be misspellings, word substitutions, or other variations that should not change the essence of the clinical content of this encounter note. 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) Expected: 08/30/2023 (Approximate), Expires: 05/18/2024 Health Maintenance Due Date Last Done Comments DISCUSS TOBACCO CESSATION (REFER TO SMARTSET #9220) 1940 Depression Screening, Annual for Pts 12 and Over 1952 AAA Monitoring 1957 Alpha-1 Antitrypsin 1957 DTaP,Tdap,and Td Vaccines (1 - Tdap) 1958 Zoster Vaccines (1 of 2) 1989 COVID-19 Vaccine (4 - Moderna series) 08/10/2021 06/15/2021, 11/03/2020, 10/06/2020 *COPD SEVERITY VERIFIED BY PFT 03/21/2023 Influenza Vaccine (FLU shot) (#1) 2023 07/17/2022, [...] this encounter Medical Devices Implanted Type Area Senior Information Security Analyst Device Identifier Shelf Expiration Date Model / Serial / Lot Stent 7x40 Precise [id number] - [id number] Implanted:Qty : 1 on 02/27/2023 by Bennett Quevedo MD at [facility] Left: Carotid CORDIS [employer] [place] [id number] 12/23/2023 [id number] / / [id number] documented as of this encounter Visit Diagnoses Diagnosis 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 No Code Status History Code Status Date [...] the patient have Health Care Power of Dual Hose Cementer? No Healthcare Agents on File Name Relationship Healthcare Agent Relationship Communication Thania Fabricio Significant Other Health Care Ag ent (per Health Care Power of Dual Hose Cementer document) Care Teams Lumber Buyer Relationship Specialty Start Date End Date James Madsen PA-C [address] [place] [phone] PCP - General Physician Electric Motor Analyst 02/24/22 documented as of this encounter
--- OUTSIDE RECORDS SUMMARY | 2023-08-24 16:51 | External Medical Summary | Summary of Care ---
Author Name Unknown Organization [facility] Address [address] [place] [address] Phone [phone] Care Team Providers Care Energy Economist Name Role Phone James Madsen PA-C Primary Care Provider + Reason for Visit * Reason Comments Dosage Adjustment Via Phone (anticoag Cl inic) Encounter Details Date Type Department Care Team Description [facility] [address] [place] [address] [place], Pharmacist Neurology [address] [place] [address] Encounter for long-term current use of medication* Allergies Active Allergy Reactions Severity Noted Date Comments Tiotropium Other (Please comment) High 12/20/2019 "Couldn't catch his breath" documented as of this encounter (statuses as of 05/19/2023) Medications Medication Sig Dispensed Refills Start Date [...] as of this encounter (statuses as of 05/19/2023) Active Problems Problem Noted Date COPD with [...] 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 Dyslipidemia, goal to be determined 01/12/2003 08/07/2009 Overview: Per Lipid Taxonomy. documented as of this encounter (statuses as of 05/19/2023) Immunizations Name Administration Dates Next Due COVID-19 [...] as of this encounter Progress Notes * MARYANN Gutiérrez - 05/19/2023 3:23 PM EDT Patient spouse Thania, instructed to continue current Verify Now dose. Stable results and next lab draw date communicated and scheduled as noted by Pharmacist: yes Advised patient to contact Neurology Clinic if any changes in medication or questions/concerns. MARYANN GUTIÉRREZ * Jessica Roland RPh - 05/19/2023 11:11 AM EDT Patient Phone Numbers Intervention History: Patient s/p left carotid angioplasty and stenting with Dr. Quevedo on 02/27/23. Follow-up: NS appointment on 09/04/23 with carotid duplex prior to appointment Results: Date: 05/19/23 ARU = 387 (goal 350-550) Aspirin dose: 81 mg every day PRU = 154 (goal 60-194) Plavix dose: 37.5 mg every day Recommendations/Plan: ARU is therapeutic. Continue current regimen of ASA 81 mg every day. PRU is therapeutic. Continue current regimen of Plavix 37.5 mg every day. alarm technician to contact patient with results. Confirmed active VerifyNow lab orders in chart. Repeat VerifyNow labs at [facility] in 3 months on approximately 08/18/23. Follow up for results. Patient to call [phone] option 3 with any questions or concerns regarding the above discussion/medication questions in the meantime. Jessica Roland RP, PharmD, BCCCP Clinical Pharmacist, Neurology Medication Therapy Disease Management documented in this encounter Plan of Treatment Upcoming Encounters Date Type Specialty Care Team Description 08/19/2023 Pharmacy Neurology [place], Pharmacist Neurology [address] [place] [address] 08/19/2023 Laboratory Laboratory [place], Lab [facility] [address] [place] [address] 09/01/2023 Imaging Radiology 09/04/2023 Telemedicine Neurological Surgery Francois Henry PA-C [address], [place] [id number] Health Maintenance Due Date Last Done Comments DISCUSS TOBACCO CESSATION (REFER TO SMARTSET #0875) 1940 Depression Screening 1951 AAA Monitoring 1957 [...] this encounter Medical Devices Implanted Type Area Repair Table Operator Device Identifier Shelf Expiration Date Model / Serial / Lot Stent 7x40 Precise [id number] - [id number] Implanted:Qty : 1 on 02/27/2023 by Bennett Quevedo MD at [facility] Left: Carotid [employer] [place] [id number] 12/23/2023 [id number] / / [id number] documented as of this encounter Visit Diagnoses Diagnosis Encounter for long-term current use of medication- Primary documented in this encounter Advance Directives Documents on File Type Date Recorded Patient Thread Twister Expl anation Advance Directives and Living Will 02/22/2023 ADVANCE DIRECTIVE / LIVING WILL Power of Men'S Basketball Coach 02/22/2023 Thania Regalado POWER OF A TTORNEY [...] the patient have Health Care Power of Men'S Basketball Coach? No Code Status History Code Status Date [...] the patient have Health Care Power of Men'S Basketball Coach? No Healthcare Agents on File Name Relationship Healthcare Agent Relationship Communication Thania Regalado Significant Other Health Care Ag ent (per Health Care Power of Men'S Basketball Coach document) Care Teams Energy Economist Relationship Specialty Start Date End Date James Madsen PA-C [address] [address] [place] [id number] PCP - General Physician Call Circuit Worker 02/24/22 documented as of this encounter
--- OUTSIDE RECORDS SUMMARY | 2023-08-24 16:51 | External Medical Summary | Summary of Care ---
Author Name Unknown Organization [facility] Address [address] [place] [address] Phone [phone] Care Team Providers Care Credit Control Clerk Name Role Phone James Madsen PA-C Primary Care Provider + Reason for Visit * Reason Comments Other B/L swollen feet, so re throat * Auth/Cert Specialty Diagnoses / Procedures Referred By Nickie t Referred To Contact Referral ID Status Reason Start Date Expiration Date Visits Re quested Visits Authorized [id number] Encounter Details Date Type Department Care Team Description 05/11/[address] [facility] Emergency Department (SH) [address] [place] [address] Grecia Cedeño, DO [address] [place] [address] COPD exacerbation (HCC) (Primary Dx); Bilateral foot pain; Tinea pedis of right foot Allergies Active Allergy Reactions Severity Noted Date Comments Tiotropium Other (Please comment) High 12/20/2019 "Couldn't catch his breath" documented as of this encounter (statuses as of 05/12/2023) Medications Medication Sig Dispensed Refills Start Date [...] needed for Pain, Moderate. 0 04/01/2023 Active predniSONE 50 MG Oral Tablet (Deltasone) Take 1 Tablet by mouth in the morning for 4 days. 4 Tablet 0 05/11/2023 05/15/2023 Active Amoxicillin-Pot Clavulanate 875-125 MG Oral Tablet (Augmentin) Take 1 Tablet by mouth in the morning and 1 Tablet before bedtime. Do all this for 5 days. 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 Dyslipidemia, goal to be determined 01/12/2003 08/07/2009 Overview: Per Lipid Taxonomy. documented as of this encounter (statuses as of 05/12/2023) Immunizations Name Administration Dates Next Due COVID-19 [...] Sign Reading Time Taken Comments Blood Pressure 130/65 05/11/2023 6:22 PM EDT Pulse 76 05/11/2023 6:22 PM EDT Temperature 36.4 C (97.5 F) 05/11/2023 4:48 PM ED T Respiratory Rate 16 05/11/2023 6:22 PM EDT Oxygen Saturation 100% 05/11/2023 6:22 PM EDT Inhaled Oxygen Concentration - - Weight 40 kg (88 lb 2.9 oz) 05/11/2023 4:53 PM E DT Height 172.7 cm (5' 8") 05/11/2023 4:53 PM EDT Body Mass Index 13.41 05/11/2023 4:53 PM EDT documented in this encounter Functional Status Functional [...] this encounter Discharge Instructions * Discharge Instructions* Anila Lange PA-C - 05/11/2023 6:33 PM EDT Apply hksi-lpf-hvkjini clotrimazole to your right foot rash twice daily for a week. If your rash worsens and becomes very warm, red, and spreading with any fevers, you need to be re-evaluated by yourfamily doctor. You may take augmentin and prednisone for your COPD exacerbation. For your ongoing foot pain, we recommend schedule an appointment with Dr. Marsh as soon as possible. Thank you for allowing us to participate in your care today. documented in this encounter ED Notes * Madie Espinoza RN - 05/11/2023 4:54 PM EDT Pt presents POV from home for evaluation of swollen painful b/l feet and sore throat x couple days.Pt states his feet have been burning and peeling for a week now. Pt also stating he has intermittent SOB d/t COPD but its "worse right now with some chest tightness which just started today". Wears 3L NC PRN during the day as well as every night. Placed on 2L NC d/t pt noting distress with audible inspiratory wheeze. Now 100%. VSS. A+Ox4, GCS 15. documented in this encounter Miscellaneous Notes * Pt Handout (on AVS) - Anila Lange PA-C - 05/11/2023 6:32 PM EDT Images from the original note were not included. [id number] Athlete?s Foot Athlete?s foot (tinea pedis) is caused by a fungal infection in the skin. It's sometimes called ringworm even though a worm doesn't cause the infection. Athlete?s foot affects the skin between the toes, causing cracks in the skin called fissures. It can also affect the bottom of the foot where it causes dry white scales and peeling of the skin. This infection is more likely to occur when the footis in hot, sweaty socks and shoes for long periods of time. You may feel itching and burning between your toes. This infection is treated with skin creams or medicine taken by mouth. Home care The following are general care guidelines: It's important to keep the feet dry. Use absorbent cotton socks and change them if they become sweaty. Or wear an open-toe shoe or sandal. Wash the feet at least once a day with soap and water, and dry them well. If your healthcare provider prescribed an antifungal medicine, use it as prescribed. Some antifungal creams are available without a prescription. Follow the instructions on the medicine package. It may take 1 week before the rash starts to improve. It can take about 3 to 4 weeks to completely clear. Continue the medicine until the rash is all gone. Use qius-bcr-bapisyk antifungal powders or sprays on your feet after exposure to high-risk environments, such as public showers, gyms, swimming pools, and locker rooms. This can help prevent future infections. Wearing appropriate shoes or sandals in these situations can help. Prevention These tips may help prevent athlete?s foot: Don't share shoes, socks, towels, or sports equipment with someone who has athlete's foot. Don't walk barefoot in places where a fungal infection can spread quickly, such as locker rooms,showers, gyms, and swimming pools. Change your socks regularly. Don't wear the same socks for more than 1 day. Alternate shoes to help with drying, or wear shoes that allow airflow. Dry your feet well after swimming or bathing. Follow-up care Follow up with your healthcare provider as advised if the rash doesn't improve after 10 days of treatment, or if the rash continues to spread. When to get medical advice Call your healthcare provider right away if any of the following occur: Fever of 100.4F (38C) or higher, or as directed by your provider Increasing redness or swelling of the foot Infection comes back soon after treatment Pus draining from cracks in the skin Last Reviewed Date: 09/25/202119997548-5415 [employer]. All rights reserved. This information is not intended as a substitute for professional medical care. Always follow your healthcare professional's instructions. * Pt Handout (on AVS) - Anila Lange PA-C - 05/11/2023 6:32 PM EDT Images from the original note were not included. [id number] COPD Flare-Up You have had a flare-up of your COPD. COPD (chronic obstructive pulmonary disease) is a common lung disease. It causes your airways to get irritated and narrower. This makes it harder for you to breathe. Emphysema and chronic bronchitis are both types of COPD. This is a long-term (chronic) condition. This means you always have it. Sometimes it gets worse. When this happens, it's called a flare-up. Symptoms of COPD People with COPD may have symptoms most of the time. In a flare-up, your symptoms get worse. These symptoms may mean you are having a flare-up: Shortness of breath, shallow or rapid breathing, or wheezing that gets worse Lung infection Cough that gets worse More mucus (or sputum), thicker mucus, or mucus of a different color Tiredness, less energy, or trouble doing your normal activities Fever Chest tightness Your symptoms don?t get better even when you use your normal medicines, inhalers, and nebulizer Trouble talking You feel confused Causes of flare-ups Unfortunately, a flare-up can happen even if you did everything right, and even if you followed your healthcare provider?s instructions. Some causes of flare- ups are: Cold weather Smoking or secondhand smoke Use of e-cigarettes or vaping products Colds, the flu, or respiratory infections Air pollution Sudden change in the weather Dust, vapors, gases, irritating chemicals, or strong fumes Not taking your medicines as prescribed Indoor pollution such as burning wood, smoke from home cooking, or heating fuels Home care Here are some things you can do at home to treat a flare-up: Keep calm and try not to panic. This makes it harder to breathe, and keeps you from doing the right things. Don?t smoke or be around others who are smoking. If you smoke, quit. Smoking is the main cause of COPD. Quitting will help you be able to better manage your COPD. Don't use e-cigarettes or vaping products either. Ask your healthcare provider about ways to help you quit smoking. Before drinking extra fluids during flare-ups to loosen the mucus, always talk with your healthcare provider first. Eat a healthy, balanced diet. This is important to staying as healthy as possible. So is trying to stay at your ideal weight. Being overweight or underweight can affect your health. Make sure you have a lot of fruits and vegetables every day. And also eat balanced portions of whole grains, lean meats and fish, and low-fat dairy products. Use your inhalers and nebulizer, if you have one, as you have been told to. When using a metereddose inhaler or nebulizer, it's very important to use the proper techniques. If you have any questions about how to use your device, contact your healthcare provider or refer to the user manual. If you were given antibiotics, take them until they are used up or your provider tells you to stop. It?s important to finish the antibiotics even though you feel better. This will make sure the infection has cleared. If you were given a steroid, finish it even if you feel better. Learn the names of your medicines, as well as how and when to use them. Talk with your provider about other conditions you have and their treatment and how it may affect your COPD. Oxygen may be prescribed if tests show that your blood contains too little oxygen. Ask your provider about long-term oxygen therapy. Coping tips for shortness of breath include: o Exercise. Try to be as active as possible. This will improve energy levels and strengthen your muscles so you can do more. o Breathing methods. Ask your healthcare provider or nurse to show you how to do pursed-lip breathing. o Balance rest and activity. Each day, try to balance rest periods with activity. For example, you might start the day with getting dressed and eating breakfast. Then you can relax and read the paper. After that, take a brief walk. And then sit with your feet up for a while. o Pulmonary rehab (rehabilitation). Community-based and home-based programs work as well as hospital-based programs as long as they are as often and as intense. Standard home-based pulmonary rehab programs help shortness of breath in people with COPD. Supervised, traditional pulmonary rehab remainsthe best option for people with COPD. These programs help with managing your disease and also help w ith breathing methods, exercise, support, and counseling. To find one, ask your provider or call your local hospital. Also talk with your healthcare provider about which rehab or self-management program is best for you. Preventing a flare-up Flare-ups happen. But the best way to treat one is to prevent it before it starts. Here are some pointers: Don?t smoke or be around others who are smoking. Avoid using e-cigarettes due to their harmful side effects. Take your medicines as discussed with your healthcare provider. Talk with your provider about getting a flu shot every year. Also find out if you need a pneumonia shot. If there is a weather advisory warning to stay indoors, try to stay inside when possible. Try to eat healthy, exercise, and get plenty of sleep. Try to stay away from things that normally set you off. These include dust, chemical fumes, hairsprays, or strong perfumes. Follow-up care Follow up with your healthcare provider as advised. If a culture was done, you will be told if your treatment needs to be changed. You can call as directed for the results. If X-rays were done, you will be told of any new findings that may affect your care. During each appointment, talk with your healthcare provider about your ability to: [place] in your normal environment Correctly use inhaler (or your medicine delivery systems) [place] with other conditions you have and their treatments and how they may affect your COPD Call 911 Call 911 if any of these occur: Wheezing or shortness of breath does not get better with treatment Chest pain or chest tightness Feeling lightheaded or dizzy You have trouble breathing You feel confused or it?s hard to wake you up You faint or lose consciousness You have a rapid heart rate You have new pain in your chest, arm, shoulder, neck, or upper back When to seek medical advice Call your healthcare provider right away if any of these occur: Fever of 100.4F (38C) or higher, or as directed by your healthcare provider Coughing up lots of dark-colored or bloody mucus (sputum) You don't start to get better within 24 hours or new symptoms develop Swelling of your ankles gets worse Weakness Last Reviewed Date: 08/25/202119994936-9816 [employer]. All rights reserved. This information is not intended as a substitute for professional medical care. Always follow your healthcare professional's instructions. documented in this encounter Plan of Treatment Upcoming Encounters Date Type Specialty Care Team Description 05/19/2023 Pharmacy Neurology Mandie, Pharmacist Neurology [address] [place] [address] MARÍA BRUNO [address] 05/19/2023 Laboratory Laboratory [place], Lab [address] [place] [address] 09/01/2023 Imaging Radiology 09/04/2023 Telemedicine Neurological Surgery Francois Henry PA-C [address] [place] [address] Scheduled Orders Name Type Priority Associated Diagnoses Orde r Schedule EKG EKG STAT Perform Now fo r 1 Occurrences starting 05/11/2023 until 05/11/2023 Health Maintenance Due Date Last Done Comments DISCUSS TOBACCO CESSATION (REFER TO SMARTSET #3299) 1940 Depression Screening 1951 AAA Monitoring 1957 [...] this encounter Medical Devices Implanted Type Area [employer] Device Identifier Shelf Expiration Date Model / Serial / Lot Stent 7x40 Precise [id number] - [id number] Implanted:Qty : 1 on 02/27/2023 by Bennett Quevedo MD at OR [facility] Left: Carotid [facility] [place] [id number] 12/23/2023 [id number] / / [id number] documented as of this encounter Procedures Procedure Name Priority Date/Time Associated Diagnosis Comments XR CHEST 1 VIEW STAT 05/11/2023 5:33 PM EDT RESPIRATORY PATHOGEN PANEL, PCR STAT 05/11/2023 5:26 PM EDT DIFFERENTIAL, AUTOMATED STAT 05/11/2023 5:22 PM EDT TROPONIN T, HIGH SENSITIVITY STAT 05/11/2023 5:22 PM EDT BLOOD GAS, VENOUS STAT 05/11/2023 5:2 2 PM EDT BNP (NT-PROBNP) STAT 05/11/2023 5:22 PM EDT BASIC METABOLIC PANEL STAT 05/11/2023 5:22 PM EDT CBC WITH WBC DIFFERENTIAL STAT 05/11/2023 5:22 PM EDT CBC STAT 05/11/2023 5:22 PM EDT documented in this encounter Results * XR CHEST 1 VIEW (05/11/2023 5:33 PM EDT) Anatomical Region Laterality Modality Chest Computed Radiogr aphy 05/11/2023 5:31 PM EDT Impressions 05/11/2023 5:59 PM EDT IMPRESSION: No acute lung disease. THIS DOCUMENT HAS BEEN ELECTRONICALLY SIGNED BY ARIELA SANTANA MD Narrative 05/11/2023 5:59 PM EDT PROCEDURE INFORMATION: Exam: XR Chest Exam date and time: 05/11/2023 5:31 PM Age: 83 years old Clinical indication: Shortness of breath; Additional info: SOB, leg swelling TECHNIQUE: Imaging protocol: Radiologic exam of the chest. Views: 1 view. COMPARISON: DX XR CHEST 1 VIEW 04/19/2023 5:14 PM FINDINGS: Lungs: No acute lung disease. No consolidation. Pleural spaces: No pleural effusion. No pneumothorax. Heart/Mediastinum: No cardiomegaly. Left-sided pacer. Bones/joints: Unremarkable. Procedure Note Ariela Santana MD - 05/11/2023 PROCEDURE INFORMATION: Exam: XR Chest Exam date and time: 05/11/2023 5:31 PM Age: 83 years old Clinical indication: Shortness of breath; Additional info: SOB, legswelling TECHNIQUE: Imaging protocol: Radiologic exam of the chest. Views: 1 view. COMPARISON: DX XR CHEST 1 VIEW 04/19/2023 5:14 PM FINDINGS: Lungs: No acute lung disease. No consolidation. Pleural spaces: No pleural effusion. No pneumothorax. Heart/Mediastinum: No cardiomegaly. Left-sided pacer. Bones/joints: Unremarkable. IMPRESSION IMPRESSION: No acute lung disease. THIS DOCUMENT HAS BEEN ELECTRONICALLY SIGNED BY ARIELA SANTANA MD Anila Lange ID-C RADIOLOGY ([facility]) * RESPIRATORY PATHOGEN PANEL, PCR (05/11/2023 5:26 PM EDT) Adenovirus by PCR Negative Negative 023 6:30 PM EDT [facility] Coronavirus 229E by PCR Negative Negative 05/11/2023 6:30 PM EDT [facility] Coronavirus HKU1 by PCR Negative Negative 05/11/2023 6:30 PM EDT [facility] Coronavirus NL63 by PCR Negative Negative 05/11/2023 6:30 PM EDT [facility] Coronavirus OC43 by PCR Negative Negative 05/11/2023 6:30 PM EDT [facility] Coronavirus SARS-CoV-2 by PCR Negative Negative 05/11/2023 6:30 PM EDT [facility] Human Metapneumovirus by PCR Negative Negative 05/11/2023 6:30 PM EDT [facility] Rhinovirus/Enterovi catrachito by PCR Negative Negative 05/11/2023 6:30 PM EDT [facility] Influenza A Virus by PCR Negative Negative 05/11/2023 6:30 PM EDT [facility] Influenza B Virus by PCR Negative Negative 05/11/2023 6:30 PM EDT [facility] Parainfluenza Virus 1 by PCR Negative Negative 05/11/2023 6:30 PM EDT [facility] Parainfluenza Virus 2 by PCR Negative Negative 05/11/2023 6:30 PM EDT [facility] Parainfluenza Virus 3 by PCR Negative Negative 05/11/2023 6:30 PM EDT [facility] Parainfluenza Virus 4 by PCR Negative Negative 05/11/2023 6:30 PM EDT [facility] Respiratory Syncytial Virus by PCR Negative Negative 05/11/2023 6:30 PM EDT [facility] Bordetella pertussis by PCR Negative Negative 05/11/2023 6:30 PM EDT [facility] Chlamydia pneumoniae by PCR Negative Negative 05/11/2023 6:30 PM EDT [facility] Mycoplasma pneumoniae by PCR Negative Negative 05/11/2023 6:30 PM EDT [facility] Bordetella parapertussis by PCR Negative Negative 05/11/2023 6:30 PM EDT [facility] Comment: The primers that detect Rhinovirus may cross react with some Enterorviruses. The validation of bronchial specimens, tracheal aspirates, and throats for this assay was developed and performance characteristics determined by [employer]. The validation of alternate specimen types has not been cleared or approved by the U.S. Food and Drug Administration (FDA). It has been determined that such clearance or approval is not necessary. Upper Respiratory Mid-turbinate nasal swab / Unknown Non-blood Collection / Unknown 05/11/2023 5:26 PM EDT 05/11/2023 5:40 PM EDT Anila Lange PA-C LAB MICRO - GENERA L ORDERABLES [facility]ATORY [place] [id number] [place] [address] * DIFFERENTIAL, AUTOMATED (05/11/2023 5:22 PM EDT) WBC 7.34 4.00 - 10.80 K/uL 05/11/2023 5:45 PM EDT [facility] Neutrophils % 61.9 40.0 - 75.0 % 05/11/2023 5:45 PM EDT [facility] Lymphocytes % 26.3 18.0 - 42.0 % 05/11/2023 5:45 PM EDT [facility] Monocytes % 9.7 1.0 - 11.0 % 05/11/2023 5:45 PM EDT [facility] Eosinophils % 1.8 0.0 - 6.0 % 05/11/2023 5:45 PM EDT [facility] Basophils % 0.3 0.0 - 2.0 % 05/11/2023 5:45 PM EDT [facility] Absolute Neutrophils 4.55 1.80 - 7.70 K/uL 05/11/2023 5:45 PM EDT [facility] Absolute Lymphocytes 1.93 1.00 - 4.80 K/ul 05/11/2023 5:45 PM EDT [facility] Absolute Monocytes 0.71 0.00 - 1.10 K/uL 05/11/2023 5:45 PM EDT [facility] Absolute Eosinophils 0.13 0.00 - 0.70 K/uL 05/11/2023 5:45 PM EDT [facility] Absolute Basophils 0.02 0.00 - 0.20 K/uL 05/11/2023 5:45 PM EDT [facility] Blood Venous blood specimen / Unknown Venipuncture / Unknown 05/11/2023 5:22 PM EDT 05/11/2023 5:40 PM EDT Anila Lange PA-C LAB BLOOD ORDERABL ES [facility] [place] [id number] [place] [address] * (ABNORMAL) CBC (05/11/2023 5:22 PM EDT) Pathologist [facility] WBC 7.34 4.00 - 10.80 K/uL 05/11/2023 5:45 PM EDT [facility] RBC 3.25 4.50 - 5.25 M/uL 05/11/2023 5:45 PM EDT [facility] HGB 11.0(L) 14.0 - 16.8 g/dL 05/11/2023 5:45 PM EDT [facility] HCT 33.7(L) 40.0 - 48.4 % 05/11/2023 5:45 PM EDT [facility] MCV 103.7 82.0 - 99.5 fL 05/11/2023 5:45 PM EDT [facility] MCH 33.8 27.0 - 34.0 pg 05/11/2023 5:45 PM EDT [facility] MCHC 32.6 32.0 - 36.0 g/dL 05/11/2023 5:45 PM EDT [facility] RDW 13.3 11.5 - 15.5 % 05/11/2023 5:45 PM EDT [facility] PLT 231 140 - 400 K/uL 05/11/2023 5:45 PM EDT [facility] MPV 10.8 6.6 - 11.1 fL 05/11/2023 5:45 PM EDT [facility] Blood Venous blood specimen / Unknown Venipuncture / Unknown 05/11/2023 5:22 PM EDT 05/11/2023 5:40 PM EDT Anila Lange PA-C LAB BLOOD ORDERABL ES [facility] [place] [id number] [place] [address] * (ABNORMAL) BLOOD GAS, VENOUS (05/11/2023 5:22 PM EDT) Temperature 37.0 C 05/11/2023 5:44 PM EDT [facility] pH, Venous 7.367 7.320 - 7.430 units 05/11/2023 5:44 PM EDT [facility] pCO2, Venous 62.6(H) 40.0 - 60.0 mmHg 05/11/2023 5:44 PM EDT LABORATORY [facility] pO2, Venous 26.3 25.0 - 50.0 mmHg 05/11/2023 5:44 PM EDT [facility] Base Excess, Venous 8.1(H) -2.0 - 2.0 mmol/L 05/11/2023 5:44 PM EDT [facility] Hemoglobin, Whole Blood 14.7 14.0 - 16.8 g/dL 05/11/2023 5:44 PM EDT [facility] Oxyhemoglobin, Venous 46.7 40.0 - 85.0 % total Hgb 05/11/2023 5:44 PM EDT [facility] Carboxyhemoglobi n, Whole Blood 5.7(H) <=1.5 % total Hgb 05/11/2023 5:44 PM EDT [facility] Comment:Smokers: 0-9.0 % Methemoglobin, Whole Blood 0.6 <=1.5 % total Hgb 05/11/2023 5:44 PM EDT [facility] Reduced Hemoglobin, Venous 47.0 % total Hgb 05/11/2023 5:44 PM EDT [facility] O2 Content, Venous 9.6 7.0 - 18.0 %vol 05/11/2023 5:44 PM EDT [facility] Bicarbonate, Whole Blood 35.9(H) 23.0 - 31.0 mmol/L 05/11/2023 5:44 PM EDT [facility] Blood Venous blood specimen / Unknown Venipuncture / Unknown 05/11/2023 5:22 PM EDT 05/11/2023 5:40 PM EDT Anila Lange PA-C LAB BLOOD ORDERABL ES Performing Organization Address City/[facility]/ZIP Co de Phone Number LABORATORY [address] [address] * (ABNORMAL) TROPONIN T, HIGH SENSITIVITY (05/11/2023 5:22 PM EDT) [facility] Troponin T, High Sensitivity 47(H) <=22 ng/L 05/11/2023 6:01 PM EDT [facility] Blood Venous blood specimen / Unknown Venipuncture / Unknown 05/11/2023 5:22 PM EDT 05/11/2023 5:40 PM EDT Anila Lange PA-C LAB BLOOD ORDERABL ES LABORATORY [address] [address] * BNP, NT-PRO (05/11/2023 5:22 PM EDT) Pathologist [facility] BNP, NT-Pro 290 <300 pg/mL 05/11/2023 6:10 PM EDT [facility] Blood Venous blood specimen / Unknown Venipuncture / Unknown 05/11/2023 5:22 PM EDT 05/11/2023 5:40 PM EDT Narrative [facility] - 05/11/2023 6:10 PM EDT Exclude Heart Failure: <300 pg/mL Diagnose Heart Failure: Age <50 yr: >450 pg/mL 50-75 yr: >900 pg/mL >75 yr: >1800 pg/mL GFR is 30-59 mL/min: >1200 pg/mL or Age-adjusted values GFR <30 mL/min: do not use, not reliable Prognostic threshold: 1000 pg/mL Anila Lange PA-C LAB BLOOD ORDERABL ES [facility]AT[facility] [address] [id number] [place] [address] * (ABNORMAL) BASIC METABOLIC PANEL (05/11/2023 5:22 PM EDT) Pathologist [facility] BUN 27(H) 6 - 20 mg/dL 05/11/2023 6:04 PM EDT LABORATORY [facility] Creatinine 0.7 0.6 - 1.2 mg/dL 05/11/2023 6:04 PM EDT LAB[facility]ATORY [facility] Estimated Glomerular Filtration Rate >90 >=60 mL/min 05/11/2023 6:04 PM EDT LAB[facility]ATORY [facility] Comment:eGFR is calculated b ased on the CKD-EPI 2020 equation Sodium 140 135 - 146 mmol/L 05/11/2023 6:04 PM EDT LAB[facility]ATORY [facility] Potassium 4.1 3.5 - 5.1 mmol/L 05/11/2023 6:04 PM EDT LAB[facility]ATORY [facility] Chloride 99 98 - 107 mmol/L 05/11/2023 6:04 PM EDT LAB[facility]ATORY [facility] CO2 32 22 - 32 mmol/L 05/11/2023 6:04 PM EDT LAB[facility]ATORY [facility] Anion Gap 9 7 - 15 mmol/L 05/11/2023 6:04 PM EDT LAB[facility]ATORY [facility] Glucose 97 70 - 120 mg/dL 05/11/2023 6:04 PM EDT LAB[facility]ATORY [facility] Calcium 8.8 8.4 - 10.2 mg/dL 05/11/2023 6:04 PM EDT LAB[facility]ATORY [facility] Blood Venous blood specimen / Unknown Venipuncture / Unknown 05/11/2023 5:22 PM EDT 05/11/2023 5:40 PM EDT Anila Lange PA-C LAB BLOOD ORDERABL ES [facility] [place] [id number] [place] [address] documented in this encounter Visit Diagnoses Diagnosis COPD exacerbation (HCC)- Primary Obstructive chronic bronchitis with exacerbation Bilateral foot pain Pain in limb Tinea pedis of right foot Dermatophytosis of foot documented in this encounter Administered Medications Inactive Administered Medications - up to 3 most recent administrations Medication Order MAR Action Action Date Dose Rate Site Acetaminophen (Tylenol) tab 975 mg 975 mg, Oral, ONCE, On 05/11/23 at 1900, For 1 dose, Maximum of 4 grams (4000 mg) per day. Given 05/11/2023 6:30 PM EDT 975 mg albuterol-ipratropium (Duoneb) inhalation solution 3 mL 3 mL, Nebulizer, Q20 MINUTES, First dose on 05/11/23 at 1745, Last dose on 05/11/23 at 1825, For 3 doses, 3 mL = 0.5 mg ipratropium/ 2.5 mg albuterol Given 05/11/2023 5:37 PM EDT 3 mL Given 05/11/2023 5:36 PM EDT 3 mL Given 05/11/2023 5:35 PM EDT 3 mL methylPREDNISolone sodium succ (SOLU-Medrol) inj 40 mg 40 mg, IV Push, ONCE, On 05/11/23 at 1745, For 1 dose Given 05/11/2023 5:22 PM EDT 40 mg documented in this encounter Active and Recently Administered Medications Times are shown in EDT. Scheduled Medication Order 05/09/2023 05/10/2023 05/11/2023 Acetaminophen (Tylenol) tab 975 mg (COMPLETED) 975 mg, Oral, ONCE, On 05/11/23 at 1900, For 1 dose, Maximum of 4 grams (4000 mg) per day. 1830 (Given - Provid er: Peace Bridges RN) albuterol-ipratropium (Duoneb) inhalation solution 3 mL (COMPLETED) 3 mL, Nebulizer, Q20 MINUTES, First dose on 05/11/23 at 1745, Last dose on 05/11/23 at 1825, For 3 doses, 3 mL = 0.5 mg ipratropium/ 2.5 mg albuterol 1735 (Given - Provid er: Gina Tony RRT)1736 (Given - Provider: Gina Tony RRT)1737 (Given - Provider: Gina Tony RRT) methylPREDNISolone sodium succ (SOLU-Medrol) inj 40 mg (COMPLETED) 40 mg, IV Push, ONCE, On 05/11/23 at 1745, For 1 dose 1722 (Given - Provid er: Peace Bridges RN) documented in this encounter Additional Health Concerns Infection Onset Date Last Indicated Resolved Time Respiratory Rule-Out 05/11/2023 05/11/2023 023 6:30 PM EDT COVID-19 Rule-Out 05/11/2023 05/11/2023 05/11/2023 6:30 PM EDT documented as of this encounter Advance Directives Documents on File Type Date Recorded Patient Correctional Case Manager Expl anation Advance Directives and Living Will 02/22/2023 ADVANCE DIRECTIVE / LIVING WILL Power of Orthopedics Teacher 02/22/2023 Thania Regalado POWER OF A TTORNEY [...] the patient have Health Care Power of Orthopedics Teacher? No Code Status History Code Status Date [...] the patient have Health Care Power of Orthopedics Teacher? No Healthcare Agents on File Name Relationship Healthcare Agent Relationship Communication Thania Regalado Significant Other Health Care Ag ent (per Health Care Power of Orthopedics Teacher document) Care Teams Credit Control Clerk Relationship Specialty Start Date End Date James Madsen PA-C [address] Stewart Joaquín [facility] [place] [address] PCP - General Physician Player Development Manager 02/24/22 documented as of this encounter
--- OUTSIDE RECORDS SUMMARY | 2023-08-24 16:51 | External Medical Summary | Summary of Care ---
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 landfill gas technician to contact patient with results. Confirmed active VerifyNow lab orders in chart. Repeat Ver[facility]Now labs at [facility] [place] 3 months on approximately 08/18/23. Follow up for results. Patient to call [phone] option 3 with any questions or concerns regarding the above discussion/medication questions in the meantime. Jessica Roland RPh, PharmD, BCCCP Clinical Pharmacist, Neurology Medication Therapy Disease Management documented in this encounter Plan of Treatment Upcoming Encounters Date Type Specialty Care Team Description 09/01/2023 Imaging Radiology 09/04/2023 Telemedicine Neurological Surgery Francois Henry PA-C [address] [place] [address] Health Maintenance Due Date Last Done Comments DISCUSS TOBACCO CESSATION (REFER TO SMARTSET #6216) 1940 Depression Screening 1951 AAA Monitoring 1957 [...] this encounter Medical Devices Implanted Type Area Director Group Sales Device Identifier Shelf Expiration Date Model / Serial / Lot Stent 7x40 Precise [id number] - [id number] Implanted:Qty : 1 on 02/27/2023 by Bennett Quevedo MD at [facility] Left: Carotid CORDIS [place] [id number] 12/23/2023 [id number] / / [id number] documented as of this encounter Visit Diagnoses Diagnosis Encounter for long-term current use of medication- Primary documented in this encounter Advance Directives Documents on File Type Date Recorded Patient Lacquer Polisher Expl anation Advance Directives and Living Will 02/22/2023 ADVANCE DIRECTIVE / LIVING WILL Power of Underground Miner 02/22/2023 Thania Regalado POWER OF A TTORNEY [...] the patient have Health Care Power of Underground Miner? No Code Status History Code Status Date [...] the patient have Health Care Power of Underground Miner? No Healthcare Agents on File Name Relationship Healthcare Agent Relationship Communication Thania Regalado Significant Other Health Care Ag ent (per Health Care Power of Underground Miner document) Care Teams Ordering Box Operator Relationship Specialty Start Date End Date James Madsen PA-C [address] [address] [place] [phone] PCP - General Physician Yoker Machine Operator 02/24/22 documented as of this encounter
--- OUTSIDE RECORDS SUMMARY | 2023-08-24 16:51 | External Medical Summary ---
Author Name Unknown Address Unknown Organization K1G:LABORATORY [facility] - [address] [place] [id number] Laboratory Report Ordering Provider Test Date Status BELKIS SANDERSON 04/19/2023 17:09:01 Final Observation Date Value Abnormality Reference (Units ) Status SYNC LEUKOCYTES IN BLOOD BY AUTOMATED COUNT 04/19/2023 17:09:01 8.82 4.00-10.80 (K/uL) Final Segs 04/19/2023 17:09:01 60.7 40.0-75.0 (%) Final Lymphs % 04/19/2023 17:09:01 24.5 18.0-42.0 (%) Final Monos 04/19/2023 17:09:01 11.6 Above high normal 1.0-11.0 (%) Final Eosinophils 04/19/2023 17:09:01 2.9 0.0-6.0 (%) Final Basos 04/19/2023 17:09:01 0.3 0.0-2.0 (%) Final Absolute Segs 04/19/2023 17:09:01 5.35 1.80-7.70 (K/uL) Final Lymphs, absolute 04/19/2023 17:09:01 2.16 1.00-4.80 (K/ul) Final Monos, Abs 04/19/2023 17:09:01 1.02 0.00-1.10 (K/uL) Final Eos, Abs 04/19/2023 17:09:01 0.26 0.00-0.70 (K/uL) Final Basos, Abs 04/19/2023 17:09:01 0.03 0.00-0.20 (K/uL) Final Performing Location LABORATORY [facility] - [address] [facility] [place] [address]
--- OUTSIDE RECORDS SUMMARY | 2023-08-24 16:51 | External Medical Summary ---
Author Name Unknown Address Unknown Organization K01:LABORATORY [facility] - [facility] [address] [facility] [address] [facility] [address] Laboratory Report Ordering Provider Test Date Status ABHIJIT WOLF 05/19/2023 10:25:40 Final Assay measures the level of platelet P2Y12 receptor blockade from clopidogrel and it should not be used to detect other platelet functional disorders. This test is not to be used for therapeutic monitoring.

>=182 P2Y12 inhibitory drug (clopidogrel) NOT detected

% clopidogrel inhibition = (Baseline PRU - Post-treatment PRU) / Baseline PRU x100

<10% inhibition indicated the patient is resistant to therapy and recommend different antiplatelet medication

Interfering substances/Test limitations: Do not test patients if on the following medications until platelet function has recovered (timeframe), as they may result in low ARU values; dipyridamole - 12 hours, cilostazol - 12 hours, Aggrenox (aspirin/dipyridamole) - 10 days. Samples may also be affected by low hematocrit (<29%), high hematocrit (>56%), or low platelet counts (<92,000/cmm). Patients on ticlopidine, prasugrel, and ticagrelor or with inherited platelet disorders have not been studied using this assay and the ability of the assay to detect these drugs or clopidogrel usage in these patients is unknown. Observation Date Value Abnormality Reference (Units ) Status Platelet aggregation ADP induced [Units/volume] in Blood 05/19/2023 10:25:40 154 Below low normal 182-335 (PRU) Final Performing Location LABORATORY [facility] - [facility] [place] [address] [facility] [address] [facility] [address]
--- OUTSIDE RECORDS SUMMARY | 2023-08-24 16:51 | External Medical Summary | Summary of Care ---
Author Name Unknown Organization [facility] Address [address] [place] [address] Phone [phone] Care Team Providers Care Salon Manager Name Role Phone James Madsen PA-C Primary Care Provider + Reason for Visit * Reason Onset Date Comments Referral Requested by Specialist 03/05/2023 Encounter Details Date Type Department Care Team Description 03/05/2023 Telephone [facility] [address] [place] [address] James Madsen PA-C [address] Joaquín [address] [place] [address] Referral Requested by Specialist Allergies Active Allergy Reactions Severity Noted Date Comments Tiotropium Other (Please comment) High 12/20/2019 "Couldn't catch his breath" documented as of this encounter (statuses as of 06/04/2023) Medications Medication Sig Dispensed Refills Start Date [...] as of this encounter (statuses as of 06/04/2023) Active Problems Problem Noted Date COPD with [...] 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 Dyslipidemia, goal to be determined 01/12/2003 08/07/2009 Overview: Per Lipid Taxonomy. documented as of this encounter (statuses as of 06/04/2023) Immunizations Name Administration Dates Next Due COVID-19 [...] Telephone Encounter - Neuro Referral [facility] - 03/05/2023 5:33 AM EDT Patient with upcoming neurology appointment. Please FAX referral order documented in this encounter Plan of Treatment Upcoming Encounters Date Type Specialty Care Team Description 08/19/2023 Pharmacy Neurology [place], Pharmacist Neurology [address] [place] [address] 08/19/2023 Laboratory Laboratory [place], Lab B1a [address] [place] [address] 09/01/2023 Imaging Radiology 09/04/2023 Telemedicine Neurological Surgery Francois Henry PA-C [address] [place], [place] [id number] Health Maintenance Due Date Last Done Comments DISCUSS TOBACCO CESSATION (REFER TO SMARTSET #0054) 1940 Depression Screening 1952 AAA Monitoring 1957 [...] this encounter Medical Devices Implanted Type Area Gaming Worker Device Identifier Shelf Expiration Date Model / Serial / Lot Stent 7x40 Precise [id number] - [id number] Implanted:Qty : 1 on 02/27/2023 by Bennett Quevedo MD at [facility] Left: Carotid CORDIS [place] [id number] 12/23/2023 [id number] / / [id number] documented as of this encounter Additional Health Concerns Infection Onset Date Last Indicated Resolved Time Respiratory Rule-Out 03/19/2023 03/19/2023 023 9:59 PM EDT COVID-19 Rule-Out 03/19/2023 03/19/2023 03/19/2023 9:59 PM EDT Respiratory Rule-Out 05/11/2023 05/11/2023 023 6:30 PM EDT COVID-19 Rule-Out 05/11/2023 05/11/2023 05/11/2023 6:30 PM EDT documented as of this encounter Advance Directives Documents on File Type Date Recorded Patient Able Bodied Seaman Expl anation Advance Directives and Living Will 02/22/2023 ADVANCE DIRECTIVE / LIVING WILL Power of Scrap Sorter 02/22/2023 Thania Regalado POWER OF A TTORNEY [...] the patient have Health Care Power of Scrap Sorter? No Code Status History Code Status Date [...] the patient have Health Care Power of Scrap Sorter? No Healthcare Agents on File Name Relationship Healthcare Agent Relationship Communication Thania Regalado Significant Other Health Care Ag ent (per Health Care Power of Scrap Sorter document) Care Teams Salon Manager Relationship Specialty Start Date End Date James Madsen PA-C [address] [address] [place] [address] PCP - General Physician Wrapper Stripper 02/24/22 documented as of this encounter
--- OUTSIDE RECORDS SUMMARY | 2023-08-24 16:51 | External Medical Summary | Summary of Care ---
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 06/19/2021 Atherosclerosis of [place] ar riley of right lower extremity with [...] No 03/20/2023 documented as of this encounter Plan of Treatment Upcoming Encounters Date Type Specialty Care Team Description 09/01/2023 Imaging Radiology 09/04/2023 Telemedicine Neurological Surgery Francois Henry PA-C [address] [place] [address] Pending Results Name Type Priority Associated Diagnoses Date /Time ASPIRIN, VERIFYNOW Lab STAT 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) 05/19/2023 10:25 AM EDT P2Y12 INHIBITOR REACTIVITY (CLOPIDOGREL), [facility] Lab STAT 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) 05/19/2023 10:25 AM EDT Health Maintenance Due Date Last Done Comments DISCUSS TOBACCO CESSATION (REFER TO SMARTSET #3291) 1940 Depression Screening 1952 AAA Monitoring 1957 [...] this encounter Medical Devices Implanted Type Area Traffic Maintenance Supervisor Device Identifier Shelf Expiration Date Model / Serial / Lot Stent 7x40 Precise [id number] - [id number] Implanted:Qty : 1 on 02/27/2023 by Bennett Quevedo MD at [facility] Left: Carotid CORDIS [facility] [id number] 12/23/2023 [id number] / / [id number] documented as of this encounter Visit Diagnoses Diagnosis 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 No Code Status History Code Status Date [...] the patient have Health Care Power of Fruit Washer? No Healthcare Agents on File Name Relationship Healthcare Agent Relationship Communication Thania Regalado Significant Other Health Care Ag ent (per Health Care Power of Fruit Washer document) Care Teams Highway Maintenance Crew Worker Relationship Specialty Start Date End Date James Madsen PA-C [address] [address] [place] [address] PCP - General Physician Vinyl Flooring Installer 02/24/22 documented as of this encounter
--- OUTSIDE RECORDS SUMMARY | 2023-08-24 16:51 | External Medical Summary | Summary of Care ---
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 GERD (gastroesophageal reflux disease) 0 01/12/2003 GENERAL OSTEOARTHROSIS 01/12/2003 Major depression, single episode 003 Tobacco use disorder 01/12/2003 Seizure disorder 09/21/2002 BPH (benign prostatic hyperplasia) Chronic neck pain documented as of this encounter (statuses as of 04/17/2023) Resolved Problems Problem Noted Date Resolved Date F/u for non Q wave myocardial infarction 003 03/16/2009 Overview: Modified by [facility] Protocol #5. Dyslipidemia, goal to be determined [...] as of this encounter Progress Notes * Leah Mondragon RPh - 04/17/2023 12:50 PM EDT Patient Phone Numbers Intervention History: Patient s/p left carotid angioplasty and stenting with Dr. Quevedo on 02/27/23. Follow-up: NS appointment on 09/04/23 with carotid duplex prior to appointment Results: Date: 04/17/23 ARU = 385 (goal 350-550) Aspirin dose: 81 mg every day PRU = 171 (goal 60-194) Plavix dose: 37.5 mg every day Recommendations/Plan: ARU is therapeutic. Continue current regimen of ASA 81 mg every day. PRU is therapeutic. Continue current regimen of Plavix 37.5 mg every day. commercial maintenance technician to contact patient with results. Confirmed active VerifyNow lab orders in chart. Repeat VerifyNow labs at [facility] in one month (current results are first post op results) on approximately 05/19/23. Follow up for results. Patient to call [phone] option 3 with any questions or concerns regarding the above discussion/medication questions in the meantime. Leah Mondragon RPh, PharmD, BCPS Clinical Pharmacist, Neurology Medication Therapy Disease Management documented in this encounter Plan of Treatment Upcoming Encounters Date Type Specialty Care Team Description 09/01/2023 Imaging Radiology 09/04/2023 Telemedicine Neurological Surgery Francois Henry PA-C [address] [facility] [place] [address] Health Maintenance Due Date Last Done Comments DISCUSS TOBACCO CESSATION (REFER TO SMARTSET #6042) 1940 Depression Screening, Annual for Pts 12 [...] this encounter Medical Devices Implanted Type Area Cranberry Bog Supervisor Device Identifier Shelf Expiration Date Model / Serial / Lot Stent 7x40 Precise [id number] - [id number] Implanted:Qty : 1 on 02/27/2023 by Bennett Quevedo MD at [facility] Left: Carotid CORDIS [place] [id number] 12/23/2023 [id number] / / [id number] documented as of this encounter Visit Diagnoses Diagnosis Encounter for long-term current use of medication- Primary documented in this encounter Advance Directives Documents on File Type Date Recorded Patient Radiocommunications Technician Expl anation Advance Directives and Living Will 02/22/2023 ADVANCE DIRECTIVE / LIVING WILL Power of Crm Administrator 02/22/2023 Thania Regalado POWER OF A TTORNEY [...] the patient have Health Care Power of Crm Administrator? No Code Status History Code Status Date [...] the patient have Health Care Power of Crm Administrator? No Healthcare Agents on File Name Relationship Healthcare Agent Relationship Communication Thania Regalado Significant Other Health Care Ag ent (per Health Care Power of Crm Administrator document) Care Teams Social Services Analyst Relationship Specialty Start Date End Date James Madsen PA-C [address] [facility] [address] [place] [address] PCP - General Physician Fixed Route Bus Operator 02/24/22 documented as of this encounter
--- OUTSIDE RECORDS SUMMARY | 2023-08-24 16:51 | External Medical Summary ---
Author Name Unknown Address Unknown Organization K1G:LABORATORY [facility] - [address] [place] [id number] Laboratory Report Ordering Provider Test Date Status CECILIA BLOOM 05/11/2023 17:22:44 Final Exclude Heart Failure: <300 pg/mL
Diagnose Heart Failure:
Age <50 yr: >450 pg/mL
50-75 yr: >900 pg/mL
>75 yr: >1800 pg/mL
GFR is 30-59 mL/min: >1200 pg/mL or Age- adjusted values
GFR <30 mL/min: do not use, not reliable

Prognostic threshold: 1000 pg/mL Observation Date Value Abnormality Reference (Units ) Status BNP, Pro-hormone 05/11/2023 17:22:44 290 <30 0 (pg/mL) Final Performing Location LABORATORY [facility] - [address] [place] [phone]
--- OUTSIDE RECORDS SUMMARY | 2023-08-24 16:51 | External Medical Summary ---
Author Name Unknown Address Unknown Organization K1G:LABORATORY [facility] - [address] [place] [id number] Laboratory Report Ordering Provider Test Date Status CECILIA BLOOM 05/11/2023 17:22:44 Final Observation Date Value Abnormality Reference (Units ) Status BUN 05/11/2023 17:22:44 27 Above high normal 6-20 (mg/dL) Final Creatinine 05/11/2023 17:22:44 0.7 0.6-1.2 (mg/dL) Final Glomerular filtration rate/1.73 sq M.predicted [Volume Rate/Area] in Serum, Plasma or Blood by Creatinine-based formula (CKD-EPI) 05/11/2023 17:22:44 >90 >=60 (mL/min) Final eGFR is calculated based on the CKD-EPI 2020 equation SODIUM 05/11/2023 17:22:44 140 135-146 (m mol/L) Final Potassium 05/11/2023 17:22:44 4.1 3.5-5.1 (m mol/L) Final Cl 05/11/2023 17:22:44 99 98-107 (mm ol/L) Final CO2 05/11/2023 17:22:44 32 22-32 (mmo l/L) Final Anion gap 05/11/2023 17:22:44 9 7-15 (mmol /L) Final Glucose 05/11/2023 17:22:44 97 70-120 (mg /dL) Final Calcium 05/11/2023 17:22:44 8.8 8.4-10.2 ( mg/dL) Final Performing Location LABORATORY [facility] - [address] [place] [address] [place] [address]
--- OUTSIDE RECORDS SUMMARY | 2023-08-24 16:51 | External Medical Summary ---
Author Name Unknown Address Unknown Organization K1G:LABORATORY [facility] - [facility] [address] Laboratory Report Ordering Provider Test Date Status CECILIA BLOOM 05/11/2023 17:22:44 Final Observation Date Value Abnormality Reference (Units ) Status SYNC LEUKOCYTES IN BLOOD BY AUTOMATED COUNT 05/11/2023 17:22:44 7.34 4.00-10.80 (K/uL) Final Segs 05/11/2023 17:22:44 61.9 40.0-75.0 (%) Final Lymphs % 05/11/2023 17:22:44 26.3 18.0-42.0 (%) Final Monos 05/11/2023 17:22:44 9.7 1.0-11.0 (%) Final Eosinophils 05/11/2023 17:22:44 1.8 0.0-6.0 (%) Final Basos 05/11/2023 17:22:44 0.3 0.0-2.0 (%) Final Absolute Segs 05/11/2023 17:22:44 4.55 1.80-7.70 (K/uL) Final Lymphs, absolute 05/11/2023 17:22:44 1.93 1.00-4.80 (K/ul) Final Monos, Abs 05/11/2023 17:22:44 0.71 0.00-1.10 (K/uL) Final Eos, Abs 05/11/2023 17:22:44 0.13 0.00-0.70 (K/uL) Final Basos, Abs 05/11/2023 17:22:44 0.02 0.00-0.20 (K/uL) Final Performing Location LABORATORY [facility] - [address] [facility] [place] [phone]
--- OUTSIDE RECORDS SUMMARY | 2023-08-24 16:51 | External Medical Summary ---
Author Name Unknown Address Unknown Organization K1G:LABORATORY [facility] - [address] [facility] [place] [address] Laboratory Report Ordering Provider Test Date Status CECILIA BLOOM 05/11/2023 17:22:44 Final Observation Date Value Abnormality Reference (Units ) Status Body temperature 05/11/2023 17:22:44 37.0 (C) Final pH of Venous blood 05/11/2023 17:22:44 7.367 7.320-7.430 (units) Final Carbon dioxide [Partial pressure] in Venous blood 05/11/2023 17:22:44 62.6 Above high normal 40.0-60.0 (mmHg) Final Oxygen [Partial pressure] in Venous blood 05/11/2023 17:22:44 26.3 25.0-50.0 (mmHg) Final Base excess, Capillary 05/11/2023 17:22:44 8.1 Above high normal -2.0-2.0 (mmol/L) Final Hemoglobin [Mass/volume] in Blood by Oximetry 05/11/2023 17:22:44 14.7 14.0-16.8 (g/dL) Final Oxyhemoglobin, Venous (FO2HB) 05/11/2023 17:22:44 46.7 40.0-85.0 (% total Hgb) Final Carboxyhemoglobin 05/11/2023 17:22:44 5.7 Above high normal <=1.5 (% total Hgb) Final Smokers: 0-9.0 % Methemoglobin 05/11/2023 17:22:44 0.6 <= 1.5 (% total Hgb) Final Deoxyhemoglobin/Hemoglo bin.total in Venous blood 05/11/2023 17:22:44 47.0 (% total Hgb) Final Oxygen content in Venous blood 05/11/2023 17:22:44 9.6 7.0-18.0 (%vol) Final Bicarbonate, Venous, POC (i-STAT) 05/11/2023 17:22:44 35.9 Above high normal 23.0-31.0 (mmol/L) Final Performing Location LABORATORY [facility] - [facility] [phone]
--- OUTSIDE RECORDS SUMMARY | 2023-08-24 16:51 | External Medical Summary ---
Author Name Unknown Address Unknown Organization K1G:LABORATORY [facility] - [address] [place] [phone] Laboratory Report Ordering Provider Test Date Status CECILIA BLOOM 05/11/2023 17:22:44 Final Observation Date Value Abnormality Reference (Units ) Status Troponin T 05/11/2023 17:22:44 47 Above high normal < =22 (ng/L) Final Performing Location LABORATORY [facility] - [address] [place] [phone]
--- OUTSIDE RECORDS SUMMARY | 2023-08-24 16:51 | External Medical Summary ---
Author Name Unknown Address Unknown Organization K1G:LABORATORY [facility] - [address] [place] [phone] Laboratory Report Ordering Provider Test Date Status BELKIS SANDERSON 04/19/2023 17:09:01 Final Observation Date Value Abnormality Reference (Units ) Status Troponin T 04/19/2023 17:09:01 44 Above high normal < =22 (ng/L) Final Performing Location LABORATORY [facility] - [address] [place] [phone]
--- OUTSIDE RECORDS SUMMARY | 2023-08-24 16:51 | External Medical Summary | Summary of Care ---
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 GERD (gastroesophageal reflux disease) 0 01/12/2003 GENERAL OSTEOARTHROSIS 01/12/2003 Major depression, single episode 003 Tobacco use disorder 01/12/2003 Seizure disorder 09/21/2002 BPH (benign prostatic hyperplasia) Chronic neck pain documented as of this encounter (statuses as of 04/17/2023) Resolved Problems Problem Noted Date Resolved Date F/u for non Q wave myocardial infarction 003 03/16/2009 Overview: Modified by Acute PR Protocol #5. Dyslipidemia, goal to be determined [...] encounter Progress Notes * MARYANN Gutiérrez - 04/17/2023 2:50 PM EDT Patient instructed to continue current Verify Now dose. Stable results and next lab draw date communicated and scheduled as noted by Pharmacist: yes Advised patient to contact Neurology Clinic if any changes in medication or questions/concerns. MARYANN GUTIÉRREZ * Leah Mondragon RPh - 04/17/2023 12:50 [...] regimen of Plavix 37.5 mg every day. ekg/ecg technician to contact patient with results. Confirmed active VerifyNow lab orders in chart. [place] [facility] [place] (current results are first post op results) on approximately 05/19/23. Follow up for results. Patient to call [phone] option 3 with any questions or concerns regarding the above discussion/medication questions in the meantime. Leah Mondragon RPh, PharmD, BCPS Clinical Pharmacist, Neurology Medication Therapy Disease Management documented in this encounter Plan of Treatment Upcoming Encounters Date Type Specialty Care Team Description 05/19/2023 Pharmacy Neurology [place], Pharmacist Neurology [address] [place] [address] 05/19/2023 Laboratory Laboratory [place], Lab B1a [address] [place] [address] 09/01/2023 Imaging Radiology 09/04/2023 Telemedicine Neurological Surgery Francois Henry PA-C [address] [place] [address] Health Maintenance Due Date Last Done Comments DISCUSS TOBACCO CESSATION (REFER TO SMARTSET #3292) 1940 Depression Screening, Annual for Pts 12 [...] this encounter Medical Devices Implanted Type Area Agriculture Technician Device Identifier Shelf Expiration Date Model / Serial / Lot Stent 7x40 Precise [id number] - [id number] Implanted:Qty : 1 on 02/27/2023 by Bennett Quevedo MD at [facility] Left: Carotid [facility] [place] [id number] 12/23/2023 [id number] / / [id number] documented as of this encounter Visit Diagnoses Diagnosis Encounter for long-term current use of medication- Primary documented in this encounter Advance Directives Documents on File Type Date Recorded 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 No Code Status History Code Status Date [...] the patient have Health Care Power of Dinkey Mechanic? No Healthcare Agents on File Name Relationship Healthcare Agent Relationship Communication Thania Regalado Significant Other Health Care Ag ent (per Health Care Power of Dinkey Mechanic document) Care Teams Dresser Tender Relationship Specialty Start Date End Date James Madsen PA-C [address] [address] [place] [address] PCP - General Physician Power Hammer Operator 02/24/22 documented as of this encounter
--- OUTSIDE RECORDS SUMMARY | 2023-08-24 16:51 | External Medical Summary ---
Author Name Unknown Address Unknown Organization K1G:LABORATORY [facility] - [address] [place] [phone] Laboratory Report Ordering Provider Test Date Status BELKIS SANDERSON 04/19/2023 18:13:53 Final Observation Date Value Abnormality Reference (Units ) Status Troponin T 04/19/2023 18:13:53 41 Above high normal < =22 (ng/L) Final Performing Location LABORATORY [facility] - [address] [place] [phone]
--- OUTSIDE RECORDS SUMMARY | 2023-08-24 16:51 | External Medical Summary ---
Author Name Unknown Address Unknown Organization K1G:LABORATORY [facility] - [address] [place] [address] [place] [phone] Laboratory Report Ordering Provider Test Date Status CECILIA BLOOM 05/11/2023 17:26:51 Final ADMITTED patient Observation Date Value Abnormality Reference (Units ) Status Adenovirus DNA [Presence] in Nasopharynx by ZONIA with non-probe detection 05/11/2023 17:26:51 Negative Negative Final Human coronavirus 229E RNA [Presence] in Nasopharynx by ZONIA with non-probe detection 05/11/2023 17:26:51 Negative Negative Final Human coronavirus HKU1 RNA [Presence] in Nasopharynx by ZONIA with non-probe detection 05/11/2023 17:26:51 Negative Negative Final Human coronavirus NL63 RNA [Presence] in Nasopharynx by ZONIA with non-probe detection 05/11/2023 17:26:51 Negative Negative Final Human coronavirus OC43 RNA [Presence] in Nasopharynx by ZONIA with non-probe detection 05/11/2023 17:26:51 Negative Negative Final SARS-CoV-2 (COVID-19) RNA [Presence] in Nasopharynx by ZONIA with non-probe detection 05/11/2023 17:26:51 Negative Negative Final Human metapneumovirus RNA [Presence] in Nasopharynx by ZONIA with non-probe detection 05/11/2023 17:26:51 Negative Negative Final Rhinovirus+Enterovirus RNA [Presence] in Nasopharynx by ZONIA with non-probe detection 05/11/2023 17:26:51 Negative Negative Final Influenza virus A RNA [Presence] in Nasopharynx by ZONIA with non-probe detection 05/11/2023 17:26:51 Negative Negative Final Influenza virus B RNA [Presence] in Nasopharynx by ZONIA with non-probe detection 05/11/2023 17:26:51 Negative Negative Final Parainfluenza virus 1 RNA [Presence] in Nasopharynx by ZONIA with non-probe detection 05/11/2023 17:26:51 Negative Negative Final Parainfluenza virus 2 RNA [Presence] in Nasopharynx by ZONIA with non-probe detection 05/11/2023 17:26:51 Negative Negative Final Parainfluenza virus 3 RNA [Presence] in Nasopharynx by ZONIA with non-probe detection 05/11/2023 17:26:51 Negative Negative Final Parainfluenza virus 4 RNA [Presence] in Nasopharynx by ZONIA with non-probe detection 05/11/2023 17:26:51 Negative Negative Final Respiratory syncytial virus RNA [Presence] in Nasopharynx by ZONIA with non-probe detection 05/11/2023 17:26:51 Negative Negative Final Bordetella pertussis.pertussis toxin promoter region [Presence] in Nasopharynx by ZONIA with non-probe detection 05/11/2023 17:26:51 Negative Negative Final Chlamydophila pneumoniae DNA [Presence] in Nasopharynx by ZONIA with non-probe detection 05/11/2023 17:26:51 Negative Negative Final Mycoplasma pneumoniae DNA [Presence] in Nasopharynx by ZONIA with non-probe detection 05/11/2023 17:26:51 Negative Negative Final Bordetella parapertussis [id number] DNA [Presence] in Nasopharynx by ZONIA with non-probe detection 05/11/2023 17:26:51 Negative Negative Final
The primers that detect Rhinovirus may cross react with some Enterorviruses. The validation of bronchial specimens, tracheal aspirates, and throats for this assay was developed and performance characteristics determined by [facility]. The validation of alternate specimen types has not been cleared or approved by the U.S. Food and Drug Administration (FDA). It has been determined that such clearance or approval is not necessary. Performing Location [facility] - [address] [facility] [address]
--- OUTSIDE RECORDS SUMMARY | 2023-08-24 16:51 | External Medical Summary ---
Author Name Unknown Address Unknown Organization K1G:LABORATORY [facility] - [address] [place] [phone] Laboratory Report Ordering Provider Test Date Status BELKIS SANDERSON 04/19/2023 17:09:01 Final Observation Date Value Abnormality Reference (Units ) Status BUN 04/19/2023 17:09:01 26 Above high normal 6-20 (mg/dL) Final Creatinine 04/19/2023 17:09:01 0.7 0.6-1.2 (mg/dL) Final Glomerular filtration rate/1.73 sq M.predicted [Volume Rate/Area] in Serum, Plasma or Blood by Creatinine-based formula (CKD-EPI) 04/19/2023 17:09:01 >90 >=60 (mL/min) Final eGFR is calculated based on the CKD-EPI 2020 equation SODIUM 04/19/2023 17:09:01 138 135-146 (m mol/L) Final Potassium 04/19/2023 17:09:01 4.6 3.5-5.1 (m mol/L) Final Cl 04/19/2023 17:09:01 99 98-107 (mm ol/L) Final CO2 04/19/2023 17:09:01 30 22-32 (mmo l/L) Final Anion gap 04/19/2023 17:09:01 9 7-15 (mmol /L) Final Glucose 04/19/2023 17:09:01 95 70-120 (mg /dL) Final Calcium 04/19/2023 17:09:01 9.2 8.4-10.2 ( mg/dL) Final Performing Location LABORATORY [facility] - [address] [place] [address] [place] [phone]
--- OUTSIDE RECORDS SUMMARY | 2023-08-24 16:51 | External Medical Summary ---
Author Name Unknown Address Unknown Organization K1G:LABORATORY [facility] - [address] [place] [phone] Laboratory Report Ordering Provider Test Date Status BELKIS SANDERSON 04/19/2023 17:09:01 Final Observation Date Value Abnormality Reference (Units ) Status WBC, Total 04/19/2023 17:09:01 8.82 4.00-10.8 0 (K/uL) Final RBC 04/19/2023 17:09:01 3.20 4.50-5.25 (M/uL) Final Hemoglobin 04/19/2023 17:09:01 11.1 Below low normal 14 .0-16.8 (g/dL) Final HCT 04/19/2023 17:09:01 33.7 Below low normal 40. 0-48.4 (%) Final MCV 04/19/2023 17:09:01 105.3 82.0-99.5 (fL) Final MCH 04/19/2023 17:09:01 34.7 27.0-34.0 (pg) Final MCHC 04/19/2023 17:09:01 32.9 32.0-36.0 (g/dL) Final RDW 04/19/2023 17:09:01 12.9 11.5-15.5 (%) Final Platelets 04/19/2023 17:09:01 258 140-400 (K /uL) Final MPV 04/19/2023 17:09:01 11.0 6.6-11.1 ( fL) Final Performing Location LABORATORY [facility] - [address] [place] [phone]
--- OUTSIDE RECORDS SUMMARY | 2023-08-24 16:51 | External Medical Summary | Summary of Care ---
Author Name Unknown Organization [facility] Address [address] [place] [address] Phone [phone] Care Team Providers Care Assistant Director Name Role Phone James Madsen PA-C Primary Care Provider + Reason for Visit * Reason Comments Chest Pain * Auth/Cert Specialty Diagnoses / Procedures Referred By Nickie davis Referred To Contact Referral ID Status Reason Start Date Expiration Date Visits Re quested Visits Authorized [id number] Encounter Details Date Type Department Care Team Description 04/19/2023 Emergency [facility] Emergency Department ([facility]) [address] [place], [place] [id number] Grecia Cedeño, DO [address] [place] [address] Musculoskeletal chest pain (Primary Dx); Screening for cardiovascular condition Allergies Active Allergy Reactions Severity Noted Date Comments Tiotropium Other (Please comment) High 12/20/2019 "Couldn't catch his breath" documented as of this encounter (statuses as of 04/20/2023) Medications Medication Sig Dispensed Refills Start Date [...] as of this encounter (statuses as of 04/20/2023) Active Problems Problem Noted Date 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 GERD (gastroesophageal reflux disease) 0 01/12/2003 GENERAL OSTEOARTHROSIS 01/12/2003 Major depression, single episode 003 Tobacco use disorder 01/12/2003 Seizure disorder 09/21/2002 BPH (benign prostatic hyperplasia) Chronic neck pain documented as of this encounter (statuses as of 04/20/2023) Resolved Problems Problem Noted Date Resolved Date F/u for non Q wave myocardial infarction 003 03/16/2009 Overview: Modified by Acute OR Protocol #5. Dyslipidemia, goal to be determined 01/12/2003 08/07/2009 Overview: Per Lipid Taxonomy. documented as of this encounter (statuses as of 04/20/2023) Immunizations Name Administration Dates Next Due COVID-19 [...] Sign Reading Time Taken Comments Blood Pressure 142/62 04/19/2023 6:00 PM EDT Pulse 79 04/19/2023 6:00 PM EDT Temperature 36.7 C (98.1 F) 04/19/2023 4:55 PM ED T Respiratory Rate 25 04/19/2023 6:00 PM EDT Oxygen Saturation 99% 04/19/2023 6:00 PM EDT Inhaled Oxygen Concentration - - Weight 44.2 kg (97 lb 7.1 oz) 04/19/2023 4:55 PM EDT Height 170.2 cm (5' 7") 04/19/2023 4:55 PM EDT Body Mass Index 15.26 04/19/2023 4:55 PM EDT documented in this encounter Functional [...] * Discharge Instructions* Grecia Cedeño DO - 04/19/2023 6:57 PM EDT Please return if you have any questions, concerns, or your symptoms worsen or change. documented in this encounter ED Notes * Grecia Cedeño DO - 04/19/2023 6:52 PM EDT HISTORY OF PRESENT ILLNESS James Ibarra is a 83 year old male who presents to the ED for evaluation of Chest Pain. Thepatient was seen at 04/19/23 1653. Patient is here complaining of right-sided chest pain. Patient states that the pain comes and goes. It is right next to his nipple. It is tender to palpation. Nothing makes it better. Movement makes it worse. He denies fever or chills. He denies shortness of breath. He has no other complaints at this time. Review of Systems Constitutional: Negative for activity change, chills and fever. HENT: Negative for ear pain and sore throat. Eyes: Negative for pain and redness. Respiratory: Negative for cough, shortness of breath and wheezing. Cardiovascular: Positive for chest pain. Negative for leg swelling. Gastrointestinal: Negative for abdominal pain, nausea and vomiting. Genitourinary: Negative for dysuria and hematuria. Musculoskeletal: Negative for back pain and neck pain. Skin: Negative for rash and wound. Neurological: Negative for syncope and headaches. Psychiatric/Behavioral: Negative for self-injury and suicidal ideas. The patient's allergies, past history, and medications were reviewed. PHYSICAL EXAM Initial Vitals (see all): BP 126/74 | Pulse 90 | Resp 20 | Temp 98.1 | O2 99 %, Room Air, None | Weight 44.2 kg | Height 170.2 cm | BMI 15.26 kg/m2 Initial Pain Assessment (see all): 8 (severe pain)/10, Sharp , Aching, location: right chest ([facility] Adult Scale 0-10) Physical Exam Vitals [...] Normal breath sounds. No wheezing or rhonchi. Chest: Chest wall: Tenderness present. Abdominal: General: Abdomen is flat. Bowel sounds [...] signs were reviewed. ED Course as of 04/19/23 1858 Sat Apr 19, 2023 1735 Basic Metabolic Panel(!) Elevated BUN [LH] 1735 CBC with WBC Differential(!) Anemia but at pt's baseline [LH] 1855 Troponin T, High Sensitivity - Now(!) Second troponin is lower than the 1st. [LH] ED Course User Index [LH] Grecia Cedeño DO Patient was seen and examined. His labs were found to be at baseline. EKG shows an AV paced rhythm.It was similar to previous. Patient's 1st troponin was found to be 44 which was lower than the patient's baseline. Patient's 2nd troponin was found to be at baseline. It was decided that the patient most likely has muscle strain secondary to using his walker. Patient was discharged in stable conditi on and told to follow-up if his symptoms worsened or changed. Amount and/or Complexity of Data Reviewed Labs: ordered. Decision-making details documented in ED Course. Radiology: ordered. ECG/medicine tests: ordered. Clinical Impressions Screening for cardiovascular condition Musculoskeletal chest pain Disposition Discharged. The patient's condition at disposition was: stable. Grecia Cedeño documented in this encounter Miscellaneous Notes * Pt Handout (on AVS) - Grecia Cedeño DO - 04/19/2023 6:57 PM EDT Images from the original note were not included. [id number] Noncardiac Chest Pain In most cases, people who come to the emergency room with chest pain don?t have a problem with their heart. Instead, the pain is caused by other conditions. It's important for the healthcare team to be sure you are not having a life- threatening cause for chest pain such as: Heart attack Blood clot in the lungs Collapsed lung Ruptured esophagus Tearing of the aorta Once these major causes have been ruled out, you may have further evaluation for other causes of chest pain. These may be problems with the lungs, muscles, bones, digestive tract, nerves, or mental health. They include: Inflammation around the lungs (pleurisy) Collapsed lung (pneumothorax) Lung inflammation (pleuritis or pneumonitis) Fluid around the lung (pleural effusion) Lung cancer (rare cause of chest pain) Inflamed cartilage between the ribs (costochondritis) Fibromyalgia Rheumatoid arthritis Chest wall strain Reflux Stomach ulcer Spasms of the esophagus Gall stones Gallbladder inflammation Panic or anxiety attacks Emotional distress Your pain doesn?t seem to be coming from your heart. But sometimes the signs of a serious problem take more time to appear. Continue to watch for the warning signs listed below. Home care Follow these guidelines when caring for yourself at home: Rest today and don't do any strenuous activity. Take any prescribed medicine as directed. Follow-up care Follow up with your healthcare provider as advised. Call 911 Call 911 if any of these occur: A change in the type of pain: if it feels different, becomes more severe, lasts longer, or begins to spread into your shoulder, arm, neck, jaw or back Shortness of breath or increased pain with breathing Weakness, dizziness, or fainting Rapid heart beat Crushing sensation in your chest When to seek medical advice Call your healthcare provider right away if any of these occur: Cough with dark colored sputum (phlegm) or blood Fever of 100.4F (38C) or higher, or as directed by your healthcare provider Swelling, pain or redness in one leg Last Reviewed Date: 08/25/202119996558-1982 [employer]. All rights reserved. This information is not intended as a substitute for professional medical care. Always follow your healthcare professional's instructions. documented in this encounter Plan of Treatment Upcoming Encounters Date Type Specialty Care Team Description 05/19/2023 Pharmacy Neurology [facility], Pharmacist Neurology [address] [place] [address] 05/19/2023 Laboratory Laboratory [facility], Lab B1a [address] [facility] [place] [address] 09/01/2023 Imaging Radiology 09/04/2023 Telemedicine Neurological Surgery Francois Henry PA-C [address] [facility] [place] [place] [address] Scheduled Orders Name Type Priority Associated Diagnoses Orde r Schedule EKG EKG STAT Screening for cardiovascular condition Perform Now for 1 Occurrences starting 04/19/2023 until 04/19/2023 Health Maintenance Due Date Last Done Comments DISCUSS TOBACCO CESSATION (REFER TO SMARTSET #6526) 1940 Depression Screening, Annual for Pts 12 [...] this encounter Medical Devices Implanted Type Area Hide Buffer Device Identifier Shelf Expiration Date Model / Serial / Lot Stent 7x40 Precise [id number] - [id number] Implanted:Qty : 1 on 02/27/2023 by Bennett Quevedo MD at OR [facility] Left: Carotid CORDIS DAKOTA [id number] 12/23/2023 [id number] / / [id number] documented as of this encounter Procedures Procedure Name Priority Date/Time Associated Diagnosis Comments TROPONIN T, HIGH SENSITIVITY STAT 04/19/2023 6:13 PM EDT XR CHEST 1 VIEW STAT 04/19/2023 5:17 PM EDT DIFFERENTIAL, AUTOMATED STAT 04/19/2023 5:09 PM EDT TROPONIN T, HIGH SENSITIVITY STAT 04/19/2023 5:09 PM EDT BASIC METABOLIC PANEL STAT 04/19/2023 5:09 PM EDT CBC WITH WBC DIFFERENTIAL STAT 04/19/2023 5:09 PM EDT CBC STAT 04/19/2023 5:09 PM EDT documented in this encounter Results * (ABNORMAL) TROPONIN T, HIGH SENSITIVITY (04/19/2023 6:13 PM EDT) Troponin T, High Sensitivity 41(H) <=22 ng/L 04/19/2023 6:53 PM EDT LABORATORY [facility] Blood Venous blood specimen / Unknown Venipuncture / Unknown 04/19/2023 6:13 PM EDT 04/19/2023 6:32 PM EDT Grecia Cedeño DO LAB BLOOD ORDERABL ES LABORATORY [address] [address] * XR CHEST 1 VIEW (04/19/2023 5:17 PM EDT) Anatomical Region Laterality Modality Chest Computed Radiogr aphy 04/19/2023 5:14 PM EDT Impressions 04/19/2023 5:35 PM EDT IMPRESSION: 1. No findings of pneumonia or congestive heart failure. 2. Stable compared to prior exam. THIS DOCUMENT HAS BEEN ELECTRONICALLY SIGNED BY FRANCOIS URIAS MD Narrative 04/19/2023 5:35 PM EDT PROCEDURE INFORMATION: Exam: XR Chest Exam date and time: 04/19/2023 5:14 PM Age: 83 years old Clinical indication: Pain; Right-sided; Additional info: Chest pain right sided TECHNIQUE: Imaging protocol: Radiologic exam of the chest. Views: 1 view. COMPARISON: DX XR CHEST 1 VIEW 03/19/2023 8:47 PM FINDINGS: Tubes, catheters and devices: There is a pacemaker in the left upper chest. The leads appear intact. Lungs: Unremarkable. No consolidation. Pleural spaces: Unremarkable. No pleural effusion. No pneumothorax. Heart/Mediastinum: Unremarkable. No cardiomegaly. Bones/joints: Bilateral shoulder arthritis. Procedure Note Francois Urias MD - 04/19/2023 PROCEDURE INFORMATION: Exam: XR Chest Exam date and time: 04/19/2023 5:14 PM Age: 83 years old Clinical indication: Pain; Right-sided; Additional info: Chest pain rightsided TECHNIQUE: Imaging protocol: Radiologic exam of the chest. Views: 1 view. COMPARISON: DX XR CHEST 1 VIEW 03/19/2023 8:47 PM FINDINGS: Tubes, catheters and devices: There is a pacemaker in the left upperchest. The leads appear intact. Lungs: Unremarkable. No consolidation. Pleural spaces: Unremarkable. No pleural effusion. No pneumothorax. Heart/Mediastinum: Unremarkable. No cardiomegaly. Bones/joints: Bilateral shoulder arthritis. IMPRESSION IMPRESSION: 1. No findings of pneumonia or congestive heart failure. 2. Stable compared to prior exam. THIS DOCUMENT HAS BEEN ELECTRONICALLY SIGNED BY FRANCOIS URIAS MD Grecia Cedeño DO RADIOLOGY ([facility]) * (ABNORMAL) DIFFERENTIAL, AUTOMATED (04/19/2023 5:09 PM EDT) WBC 8.82 4.00 - 10.80 K/uL 04/19/2023 5:16 PM EDT LABORATORY [facility] Neutrophils % 60.7 40.0 - 75.0 % 04/19/2023 5:16 PM EDT LABORATORY [facility] Lymphocytes % 24.5 18.0 - 42.0 % 04/19/2023 5:16 PM EDT LABORATORY [facility] Monocytes % 11.6(H) 1.0 - 11.0 % 04/19/2023 5:16 PM EDT LABORATORY [facility] Eosinophils % 2.9 0.0 - 6.0 % 04/19/2023 5:16 PM EDT LABORATORY [facility] Basophils % 0.3 0.0 - 2.0 % 04/19/2023 5:16 PM EDT LABORATORY [facility] Absolute Neutrophils 5.35 1.80 - 7.70 K/uL 04/19/2023 5:16 PM EDT LABORATORY [facility] Absolute Lymphocytes 2.16 1.00 - 4.80 K/ul 04/19/2023 5:16 PM EDT LABORATORY [facility] Absolute Monocytes 1.02 0.00 - 1.10 K/uL 04/19/2023 5:16 PM EDT LABORATORY [facility] Absolute Eosinophils 0.26 0.00 - 0.70 K/uL 04/19/2023 5:16 PM EDT LABORATORY [facility] Absolute Basophils 0.03 0.00 - 0.20 K/uL 04/19/2023 5:16 PM EDT LAB[facility]ATORY [facility] Blood Venous blood specimen / Unknown Venipuncture / Unknown 04/19/2023 5:09 PM EDT 04/19/2023 5:13 PM EDT Grecia Cedeño DO LAB BLOOD ORDERABL ES LABORATORY [place] [id number] [place] [address] * (ABNORMAL) CBC (04/19/2023 5:09 PM EDT) WBC 8.82 4.00 - 10.80 K/uL 04/19/2023 5:16 PM EDT LABORATORY [facility] RBC 3.20 4.50 - 5.25 M/uL 04/19/2023 5:16 PM EDT LABORATORY [facility] HGB 11.1(L) 14.0 - 16.8 g/dL 04/19/2023 5:16 PM EDT LABORATORY [facility] HCT 33.7(L) 40.0 - 48.4 % 04/19/2023 5:16 PM EDT LABORATORY [facility] MCV 105.3 82.0 - 99.5 fL 04/19/2023 5:16 PM EDT LABORATORY [facility] MCH 34.7 27.0 - 34.0 pg 04/19/2023 5:16 PM EDT LABORATORY [facility] MCHC 32.9 32.0 - 36.0 g/dL 04/19/2023 5:16 PM EDT LABORATORY [facility] RDW 12.9 11.5 - 15.5 % 04/19/2023 5:16 PM EDT LABORATORY [facility] PLT 258 140 - 400 K/uL 04/19/2023 5:16 PM EDT LABORATORY [facility] MPV 11.0 6.6 - 11.1 fL 04/19/2023 5:16 PM EDT LAB[facility]ORY [facility] Blood Venous blood specimen / Unknown Venipuncture / Unknown 04/19/2023 5:09 PM EDT 04/19/2023 5:13 PM EDT Grecia Saenzman LAB BLOOD ORDERABL ES Performing Organization Address City/[facility] [address]/ZIP Co de Phone Number LABORATORY [address] [address] * (ABNORMAL) TROPONIN T, HIGH SENSITIVITY (04/19/2023 5:09 PM EDT) Troponin T, High Sensitivity 44(H) <=22 ng/L 04/19/2023 5:40 PM EDT LABORATORY [facility] Blood Venous blood specimen / Unknown Venipuncture / Unknown 04/19/2023 5:09 PM EDT 04/19/2023 5:13 PM EDT Juanis Hoffman LAB BLOOD ORDERABL ES LABORATORY [address] [address] * (ABNORMAL) BASIC METABOLIC PANEL (04/19/2023 5:09 PM EDT) BUN 26(H) 6 - 20 mg/dL 04/19/2023 5:31 PM EDT LABORATORY [facility] Creatinine 0.7 0.6 - 1.2 mg/dL 04/19/2023 5:31 PM EDT LABORATORY [facility] Estimated Glomerular Filtration Rate >90 >=60 mL/min 04/19/2023 5:31 PM EDT LABORATORY [facility] Comment:eGFR is calculated b ased on the CKD-EPI 2020 equation Sodium 138 135 - 146 mmol/L 04/19/2023 5:31 PM EDT LABORATORY [facility] Potassium 4.6 3.5 - 5.1 mmol/L 04/19/2023 5:31 PM EDT LABORATORY [facility] Chloride 99 98 - 107 mmol/L 04/19/2023 5:31 PM EDT LABORATORY [facility] CO2 30 22 - 32 mmol/L 04/19/2023 5:31 PM EDT LABORATORY [facility] Anion Gap 9 7 - 15 mmol/L 04/19/2023 5:31 PM EDT LABORATORY [facility] Glucose 95 70 - 120 mg/dL 04/19/2023 5:31 PM EDT LABORATORY [facility] Calcium 9.2 8.4 - 10.2 mg/dL 04/19/2023 5:31 PM EDT LABORATORY [facility] Blood Venous blood specimen / Unknown Venipuncture / Unknown 04/19/2023 5:09 PM EDT 04/19/2023 5:13 PM EDT Grecia Cedeño DO LAB BLOOD ORDERABL ES LABORATORY [facility] [address] [place] [address] documented in this encounter Visit Diagnoses Diagnosis Musculoskeletal chest pain- Primary Other chest pain Screening for cardiovascular condition Screening for other and unspecified cardiovascular conditions documented in this encounter Advance Directives Documents on File Type Date Recorded 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 No Code Status History Code Status Date [...] the patient have Health Care Power of Space Technologist? No Healthcare Agents on File Name Relationship Healthcare Agent Relationship Communication Thania Regalado Significant Other Health Care Ag ent (per Health Care Power of Space Technologist document) Care Teams Assistant Director Relationship Specialty Start Date End Date James Madsen PA-C [address] [facility] [place] [id number] PCP - General Physician Laser/Electro Optics Technician 02/24/22 documented as of this encounter
--- OUTSIDE RECORDS SUMMARY | 2023-08-24 16:52 | External Medical Summary | Summary of Care ---
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)* Allergies Active Allergy Reactions Severity Noted Date Comments Tiotropium Other (Please comment) High 12/20/2019 "Couldn't catch his breath" documented as of this encounter (statuses as of 04/09/2023) Medications Medication Sig Dispensed Refills Start Date [...] as of this encounter (statuses as of 04/09/2023) Active Problems Problem Noted Date COPD with [...] 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 Dyslipidemia, goal to be determined 01/12/2003 08/07/2009 Overview: Per Lipid Taxonomy. documented as of this encounter (statuses as of 04/09/2023) Immunizations Name Administration Dates Next Due COVID-19 mRNA, LNP-s, No Pre serve, 2-Dose Series (Moderna) 06/15/2021,11/03/2020,10/06/2020 Pneumococcal Conjugate Vacc, 13 Valent (Prevnar) 06/05/2020,11/03/2014 Pneumococcal Polysaccharide PPV23 (Pneumovax) 06/30/2007 Seasonal Influenza, Quadriva lent, No Preserve, IM 05/18/2013,06/15/2012 Seasonal Influenza, Quadriva lent, No Preserve, Mdck 10/08/2021 Seasonal Influenza, Recombin ant, RIV4, No Preserve 06/05/2020,06/21/2019,05/27/2018 Seasonal Influenza, Split, I IV3, With [...] as of this encounter Progress Notes * Georgia Ashford RPh - 04/09/2023 2:26 PM EDT Noted - will send to Dr. Quevedo and PA to make aware. Last ARU/PRU completed 03/13/23. Patient scheduled for repeat 04/17/23 with f/u appt. * MARYANN Delgadillo Tech - 04/09/2023 11:40 AM EDT Att 2 LVM requesting patient complete Verify Now labs earlier than next week. Follow up documented in this encounter Plan of Treatment Upcoming Encounters Date Type Specialty Care Team Description 04/17/2023 Pharmacy Neurology [place], Pharmacist Neurology [address] [place] [address] 04/17/2023 Laboratory Laboratory [facility], Lab B1a [address] [place] [address] 04/17/2023 Office Visit Neurological Surgery Francois Henry PA-C [address] [place] [address] Health Maintenance Due Date Last Done Comments DISCUSS TOBACCO CESSATION (REFER TO SMARTSET #7149) 1940 Depression Screening, Annual for Pts 12 [...] this encounter Medical Devices Implanted Type Area Bar Catcher Device Identifier Shelf Expiration Date Model / Serial / Lot Stent 7x40 Precise [id number] - [id number] Implanted:Qty : 1 on 02/27/2023 by Bennett Quevedo MD at [facility] Left: Carotid CORDIS Qalendra DAKOTA [id number] 12/23/2023 [id number] / / [id number] documented as of this encounter Visit Diagnoses Diagnosis 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 Question Answer Comments Discussion of Advance Directives occurred with: Patient Does the patient have a Living Will? No Does the patient have Health Care Power of Internet Developer? No Code Status History Code Status Date [...] the patient have Health Care Power of Internet Developer? No Care Teams Web Site Specialist Relationship Specialty Start Date End Date James Madsen PA-C [address] [address] [place] [id number] PCP - General Physician Floating Labor Gang Supervisor 02/24/22 documented as of this encounter
--- OUTSIDE RECORDS SUMMARY | 2023-08-24 16:52 | External Medical Summary | Summary of Care ---
Author Name Unknown Organization [facility] Address [address] [place] [address] Phone [phone] Care Team Providers Care Editor News Name Role Phone James Madsen PA-C Primary Care Provider + Reason for Visit * Reason Onset Date Comments Referral Requested by Specialist 04/15/2023 Encounter Details Date Type Department Care Team Description 04/15/2023 Telephone [facility] [address] [place] [address] James Madsen PA-C [address] [facility] [address] Referral Requested by Specialist Allergies Active Allergy Reactions Severity Noted Date Comments Tiotropium Other (Please comment) High 12/20/2019 "Couldn't catch his breath" documented as of this encounter (statuses as of 04/15/2023) Medications Medication Sig Dispensed Refills Start Date [...] as of this encounter (statuses as of 04/15/2023) Active Problems Problem Noted Date 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 Dyslipidemia, goal to be determined 01/12/2003 08/07/2009 Overview: Per Lipid Taxonomy. documented as of this encounter (statuses as of 04/15/2023) Immunizations Name Administration Dates Next Due COVID-19 [...] * Telephone Encounter - Neuro Referral [facility] - 04/15/2023 1:16 PM EDT Patient with upcoming neurology appointment. Please FAX referral order documented in this encounter Plan of Treatment Upcoming Encounters Date Type Specialty Care Team Description 04/17/2023 Pharmacy Neurology [place], Pharmacist Neurology [address] [place] [address] 04/17/2023 Laboratory Laboratory [place], Lab B1a [address] [place] [address] 04/17/2023 Office Visit Neurological Surgery Francois Henry PA-C [address] [place], [place] [phone] Health Maintenance Due Date Last Done Comments DISCUSS TOBACCO CESSATION (REFER TO SMARTSET #2787) 1940 Depression Screening, Annual for Pts 12 [...] this encounter Medical Devices Implanted Type Area Central Office Operator Supervisor Device Identifier Shelf Expiration Date Model / Serial / Lot Stent 7x40 Precise [id number] - [id number] Implanted:Qty : 1 on 02/27/2023 by Bennett Quevedo MD at OR [facility] [place] Left: Carotid CORDIS [place] [id number] 12/23/2023 [id number] / / [id number] documented as of this encounter Advance Directives Documents on File Type Date Recorded Patient Bisque Kiln Drawer Expl anation Advance Directives and Living Will 02/22/2023 ADVANCE DIRECTIVE / LIVING WILL Power of Moving Van Driver 02/22/2023 Thania Regalado POWER OF A TTORNEY [...] the patient have Health Care Power of Moving Van Driver? No Code Status History Code Status Date [...] the patient have Health Care Power of Moving Van Driver? No Healthcare Agents on File Name Relationship Healthcare Agent Relationship Communication Thania Regalado Significant Other Health Care Ag ent (per Health Care Power of Moving Van Driver document) Care Teams Editor News Relationship Specialty Start Date End Date James Madsen PA-C [address] [address] [place] [phone] PCP - General Physician Camera Repair Technician 02/24/22 documented as of this encounter
--- OUTSIDE RECORDS SUMMARY | 2023-08-24 16:52 | External Medical Summary ---
Author Name Unknown Address Unknown Organization [id number]:LAB[facility]ATORY [facility] [place] - [facility] [address] [facility] [address] [facility] [address] Laboratory Report Ordering Provider Test Date Status ABHIJIT WOLF 04/17/2023 10:33:02 Final Assay measures the level of platelet [...] Platelet aggregation ADP induced [Units/volume] in Blood 04/17/2023 10:33:02 171 Below low normal 182-335 (PRU) Final Performing Location LAB[facility]ORY [facility] [place] - [facility] [address] [facility] [address] [facility] [address]
--- OUTSIDE RECORDS SUMMARY | 2023-08-24 16:52 | External Medical Summary | Summary of Care ---
Author Name Unknown Organization [facility] Address [address] [place] [address] Phone [phone] Care Team Providers Care Mapper Name Role Phone James Madsen PA-C Primary Care Provider + Reason for Visit * Reason Onset Date Comments Referral Requested by Specialist 04/10/2023 [facility] referral request Encounter Details Date Type Department Care Team Description 04/10/2023 Telephone [facility] [place] [address] [place] [address] James Madsen PA-C [address] [place] [address] Referral Requested by Specialist ([facility] refe... 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 Dyslipidemia, goal to be determined 01/12/2003 08/07/2009 Overview: Per Lipid Taxonomy. documented as of this encounter (statuses as of 04/10/2023) Immunizations Name Administration Dates Next Due COVID-19 [...] Notes * Telephone Encounter - Neuro Referral [facility] - 04/10/2023 8:16 AM EDT Patient with upcoming neurology appointment. Please FAX referral order documented in this encounter Plan of Treatment Upcoming Encounters Date Type Specialty Care Team Description 04/17/2023 Pharmacy Neurology [facility], Pharmacist Neurology [address] [place] [address] 04/17/2023 Laboratory Laboratory [facility], Lab B1a [address] [place] [address] 04/17/2023 Office Visit Neurological Surgery Francois Henry PA-C [address] [place], [place] [phone] Health Maintenance Due Date Last Done Comments DISCUSS TOBACCO CESSATION (REFER TO SMARTSET #2405) 1940 Depression Screening, Annual for Pts 12 [...] this encounter Medical Devices Implanted Type Area Buff Wheel Fabricator Device Identifier Shelf Expiration Date Model / Serial / Lot Stent 7x40 Precise [id number] - [id number] Implanted:Qty : 1 on 02/27/2023 by Bennett Quevedo MD at OR [facility] [place] Left: Carotid CORDIS [facility] [id number] 12/23/2023 [id number] / / [id number] documented as of this encounter Advance Directives Documents on File Type Date Recorded Patient Water Resources Program Director Expl anation Advance Directives and Living Will 02/22/2023 ADVANCE DIRECTIVE / LIVING WILL Power of Guest Service Agent 02/22/2023 POWER OF A TTORNEY Latest Code Status on File Code Status Date Activated Date Inactivated Comments Full Code 03/19/2023 10:35 PM 03/22/2023 5:08 PM This order reflects the patients wishes and were consensually agreed upon. Question Answer Comments Discussion of Advance Directives occurred with: Patient Does the patient have a Living Will? No Does the patient have Health Care Power of Guest Service Agent? No Code Status History Code Status Date [...] the patient have Health Care Power of Guest Service Agent? No Care Teams Mapper Relationship Specialty Start Date End Date James Madsen PA-C [address] [address] [place] [address] PCP - General Physician Creel Clerk 02/24/22 documented as of this encounter
--- OUTSIDE RECORDS SUMMARY | 2023-08-24 16:52 | External Medical Summary ---
Author Name Unknown Address Unknown Organization K01:[facility] [facility] [address] Laboratory Report Ordering Provider Test Date Status ABHIJIT WOLF 04/17/2023 10:33:02 Final Assay designed to measure th e [...] arachidonate induced [Units/volume] in Platelet rich plasma 04/17/2023 10:33:02 385 Below low normal >=550 (ARU) Final Performing Location [facility] [facility] [address] [facility] [facility] [address]
--- OUTSIDE RECORDS SUMMARY | 2023-08-24 16:52 | External Medical Summary | Summary of Care ---
Author Name Unknown Organization [facility] Address [address] [place] [address] Phone [phone] Care Team Providers Care Meatman Name Role Phone James Madsen PA-C Primary Care Provider + Reason for Visit * Reason Onset Date Comments Nurse Documentation 04/14/2023 Advance Care Planning/ [employer] Encounter Details Date Type Department Care Team Description 04/14/2023 Telephone Care Coordination [address] [place] [address] Nga Nicholson, CHRIS Nurse Documentation (Advance Care Planning... 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 Dyslipidemia, goal to be determined 01/12/2003 08/07/2009 Overview: Per Lipid Taxonomy. documented as of this encounter (statuses as of 04/14/2023) Immunizations Name Administration Dates Next Due COVID-19 [...] shopping? (15 years old or older) No 07/27/20 23 Cognitive Status Response Date of Assessm ent Because of a physical, menta l, or emotional condition, do you have serious difficulty concentrating, remembering, or making decisions? (5 years old or older No 03/20/2023 documented as of this encounter Miscellaneous Notes * ACP (Advance Care Planning) - Nga Nicholson LPN - 04/14/2023 11:41 AM EDT Advance Directive Monthly [facility] Review of Advance Directives Scanned to Chart Document reviewed as valid and correct: Power of Quality Control Specialist document scan on 02/22/2023, document date 10/30/06 Medical instruction #5 Agent Thania Regalado If NO, reason document is not valid/correct: document scanned 02/22/2023 labeled Advance directive Living Will is not AD but Last Will & Testament dated 10/30/2006,not needed as part of medical record. Additional comments: Agent information updated Nga Nicholson LPN [facility] Radiologist Diagnostic General Email: Glad to Have [email or web address] General documented in this encounter Plan of Treatment Upcoming Encounters Date Type Specialty Care Team Description 04/17/2023 Pharmacy Neurology [facility], Pharmacist Neurology [address] [place] [address] 04/17/2023 Laboratory Laboratory [facility], Lab B1a [address] [place], [place] [phone] 04/17/2023 Office Visit Neurological Surgery Francois Henry PA-C [address] [place], [place] [phone] Health Maintenance Due Date Last Done Comments DISCUSS TOBACCO CESSATION (REFER TO SMARTSET #3269) 1940 Depression Screening, Annual for Pts 12 [...] encounter Medical Devices Implanted Type Area Senior Care Provider Device Identifier Shelf Expiration Date Model / Serial / Lot Stent 7x40 Precise [id number] - [id number] Implanted:Qty : 1 on 02/27/2023 by Bennett Quevedo MD at OR [facility] [place] Left: Carotid C[place]IS [place] [id number] 12/23/2023 [id number] / / [id number] documented as of this encounter Advance Directives Documents on File Type Date Recorded Patient Teller Manager Expl anation Advance Directives and Living Will 02/22/2023 ADVANCE DIRECTIVE / LIVING WILL Power of Quality Control Specialist 02/22/2023 Thania Regalado POWER OF A TTORNEY [...] the patient have Health Care Power of Quality Control Specialist? No Code Status History Code Status Date [...] the patient have Health Care Power of Quality Control Specialist? No Healthcare Agents on File Name Relationship Healthcare Agent Relationship Communication Thania Regalado Significant Other Health Care Ag ent (per Health Care Power of Quality Control Specialist document) Care Teams Meatman Relationship Specialty Start Date End Date James Madsen PA-C [address] [place] [address] PCP - General Physician Rn Maternity 02/24/22 documented as of this encounter
--- OUTSIDE RECORDS SUMMARY | 2023-08-24 16:52 | External Medical Summary | Summary of Care ---
Author Name Unknown Organization [facility] Address [address] [place] [address] Phone [phone] Care Team Providers Care Innovations Paraprofessional Name Role Phone James Madsen PA-C Primary Care Provider + Reason for Visit * Reason Onset Date Comments Referral Requested by Specialist 04/14/2023 [facility] referral request Encounter Details Date Type Department Care Team Description 04/14/2023 Telephone [facility] [address] [place] [address] James Madsen PA-C [address] [place] [address] Referral Requested by Specialist ([facility] refe... 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 GERD (gastroesophageal reflux disease) 0 01/12/2003 GENERAL OSTEOARTHROSIS 01/12/2003 Major depression, single episode 003 Tobacco use disorder 01/12/2003 Seizure disorder 09/21/2002 BPH (benign prostatic hyperplasia) Chronic neck pain documented as of this encounter (statuses as of 04/14/2023) Resolved Problems Problem Noted Date Resolved Date F/u for non Q wave myocardial infarction 003 03/16/2009 Overview: Modified by Acute [place] Protocol #5. Dyslipidemia, goal to be determined [...] Notes * Telephone Encounter - Neuro Referral [facility] - 04/14/2023 8:07 AM EDT Patient with upcoming neurology appointment. Please FAX referral order documented in this encounter Plan of Treatment Upcoming Encounters Date Type Specialty Care Team Description 04/17/2023 Pharmacy Neurology [place], Pharmacist Neurology [address] [place] [address] 04/17/2023 Laboratory Laboratory [place], Lab B1a [address] [place] [address] 04/17/2023 Office Visit Neurological Surgery Francois Henry PA-C [address] [place], [place] [phone] Health Maintenance Due Date Last Done Comments DISCUSS TOBACCO CESSATION (REFER TO SMARTSET #5671) 1940 Depression Screening, Annual for Pts 12 [...] this encounter Medical Devices Implanted Type Area Staffing Consultant Device Identifier Shelf Expiration Date Model / Serial / Lot Stent 7x40 Precise [id number] - [id number] Implanted:Qty : 1 on 02/27/2023 [place] [facility] [place] Carotid CORDIS [place] [id number] 12/23/2023 [id number] / / [id number] documented as of this encounter Advance Directives Documents on File Type Date Recorded Patient Marketing Programs Specialist Expl anation Advance Directives and Living Will 02/22/2023 ADVANCE DIRECTIVE / LIVING WILL Power of Hand Engraver 02/22/2023 POWER OF A TTORNEY Latest Code Status on File Code Status Date Activated Date Inactivated Comments Full Code 03/19/2023 10:35 PM 03/22/2023 5:08 PM This order reflects the patients wishes and were consensually agreed upon. Question Answer Comments Discussion of Advance Directives occurred with: Patient Does the patient have a Living Will? No Does the patient have Health Care Power of Hand Engraver? No Code Status History Code Status Date [...] the patient have Health Care Power of Hand Engraver? No Care Teams Innovations Paraprofessional Relationship Specialty Start Date End Date James Madsen PA-C [address] [address] [place] [address] PCP - General Physician Technical Support Manager 02/24/22 documented as of this encounter
--- OUTSIDE RECORDS SUMMARY | 2023-08-24 16:52 | External Medical Summary | Summary of Care ---
Author Name Unknown Organization [facility] Address [address] [place] [address] Phone [phone] Care Team Providers Care High School Music Director Name Role Phone James Madsen PA-C Primary Care Provider + Reason for Visit * Reason Onset Date Comments Referral Requested by Specialist 04/11/2023 [facility] referral request Encounter Details Date Type Department Care Team Description 04/11/2023 Telephone [facility] [place] [address] [place] [address] James Madsen PA-C [address] [place] [address] Referral Requested by Specialist ([facility] refe... 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 Dyslipidemia, goal to be determined 01/12/2003 08/07/2009 Overview: Per Lipid Taxonomy. documented as of this encounter (statuses as of 04/11/2023) Immunizations Name Administration Dates Next Due COVID-19 [...] Notes * Telephone Encounter - Neuro Referral [facility] - 04/11/2023 7:41 AM EDT Patient with upcoming neurology appointment. Please FAX referral order Electronically signed by Neuro Referral [facility] at 04/11/2023 7:43 AM EDT documented in this encounter Plan of Treatment Upcoming Encounters Date Type Specialty Care Team Description 04/17/2023 Pharmacy Neurology [facility], Pharmacist Neurology [address] [place] [address] 04/17/2023 Laboratory Laboratory [facility], Lab B1a [address] [place] [address] 04/17/2023 Office Visit Neurological Surgery Francois Henry PA-C [address] [place], [place] [phone] Health Maintenance Due Date Last Done Comments DISCUSS TOBACCO CESSATION (REFER TO SMARTSET #6579) 1940 Depression Screening, Annual for Pts 12 [...] this encounter Medical Devices Implanted Type Area Vascular Manager Device Identifier Shelf Expiration Date Model / Serial / Lot Stent 7x40 Precise [id number] - [id number] Implanted:Qty : 1 on 02/27/2023 by Bennett Quevedo MD at OR [facility] [place] Left: Carotid CORDIS [facility] [id number] 12/23/2023 [id number] / / [id number] documented as of this encounter Advance Directives Documents on File Type Date Recorded Patient Paintings Restorer Expl anation Advance Directives and Living Will 02/22/2023 ADVANCE DIRECTIVE / LIVING WILL Power of Helper Coordinator 02/22/2023 POWER OF A TTORNEY Latest Code Status on File Code Status Date Activated Date Inactivated Comments Full Code 03/19/2023 10:35 PM 03/22/2023 5:08 PM This order reflects the patients wishes and were consensually agreed upon. Question Answer Comments Discussion of Advance Directives occurred with: Patient Does the patient have a Living Will? No Does the patient have Health Care Power of Helper Coordinator? No Code Status History Code Status Date [...] the patient have Health Care Power of Helper Coordinator? No Care Teams High School Music Director Relationship Specialty Start Date End Date James Madsen PA-C [address] [address] [place] [address] PCP - General Physician Hand Grinder 02/24/22 documented as of this encounter
--- OUTSIDE RECORDS SUMMARY | 2023-08-24 16:52 | External Medical Summary | Summary of Care ---
Author Name Unknown Organization [facility] Address [address] [place] [address] Phone [phone] Care Team Providers Care Yard Inspector Name Role Phone James Madsen PA-C Primary Care Provider + Reason for Visit * Reason Onset Date Comments Referral Requested by Specialist 04/16/2023 Encounter Details Date Type Department Care Team Description 04/16/2023 Telephone [facility] [address] [place] [address] James Madsen PA-C [address] [facility] [id number] Referral Requested by Specialist Allergies Active Allergy Reactions Severity Noted Date Comments Tiotropium Other (Please comment) High 12/20/2019 "Couldn't catch his breath" documented as of this encounter (statuses as of 04/16/2023) Medications Medication Sig Dispensed Refills Start Date [...] as of this encounter (statuses as of 04/16/2023) Active Problems Problem Noted Date 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 Dyslipidemia, goal to be determined 01/12/2003 08/07/2009 Overview: Per Lipid Taxonomy. documented as of this encounter (statuses as of 04/16/2023) Immunizations Name Administration Dates Next Due COVID-19 [...] Notes * Telephone Encounter - Neuro Referral [facility] - 04/16/2023 5:26 AM EDT Patient with upcoming neurology appointment. Please FAX referral order documented in this encounter Plan of Treatment Upcoming Encounters Date Type Specialty Care Team Description 04/17/2023 Pharmacy Neurology [place], Pharmacist Neurology [address] [place] [address] 04/17/2023 Laboratory Laboratory [place], Lab B1a [address] [place] [address] 04/17/2023 Office Visit Neurological Surgery Francois Henry PA-C [address] [place], [place] [phone] Health Maintenance Due Date Last Done Comments DISCUSS TOBACCO CESSATION (REFER TO SMARTSET #5048) 1940 Depression Screening, Annual for Pts 12 [...] this encounter Medical Devices Implanted Type Area Fence Post Driver Device Identifier Shelf Expiration Date Model / Serial / Lot Stent 7x40 Precise [id number] - [id number] Implanted:Qty : 1 on 02/27/2023 by Bennett Quevedo MD at OR [facility] Left: Carotid CORDIS [place] [id number] 12/23/2023 [id number] / / [id number] documented as of this encounter Advance Directives Documents on File Type Date Recorded Patient Home Health Travel Pt Expl anation Advance Directives and Living Will 02/22/2023 ADVANCE DIRECTIVE / LIVING WILL Power of Industrial Organization Manager 02/22/2023 Thania Regalado POWER OF A TTORNEY [...] the patient have Health Care Power of Industrial Organization Manager? No Code Status History Code Status Date [...] the patient have Health Care Power of Industrial Organization Manager? No Healthcare Agents on File Name Relationship Healthcare Agent Relationship Communication Thania Regalado Significant Other Health Care Ag ent (per Health Care Power of Industrial Organization Manager document) Care Teams Yard Inspector Relationship Specialty Start Date End Date James Madsen PA-C [address] [address] [place] [id number] PCP - General Physician Dental Equipment Technician 02/24/22 documented as of this encounter
--- OUTSIDE RECORDS SUMMARY | 2023-08-24 16:52 | External Medical Summary | Summary of Care ---
Author Name Unknown Organization [facility] Address [address] [place] [address] Phone [phone] Care Team Providers Care Powder Blender Name Role Phone James Madsen PA-C Primary Care Provider + Reason for Visit * Reason Comments Outpatient Testing Encounter Details Date Type Department Care Team Description 04/17/2023 Laboratory Outpatient Laboratory, [place] [address] [place] [address] [place], Lab B1a [address] [place] [address] Stenosis of left internal carotid [...] aneurysm without ruptur e 06/19/2021 Atherosclerosis of [place] ar riley of right lower extremity with [...] Date Type Specialty Care Team Description 04/17/2023 Office Visit Neurological Surgery Francois Henry PA-C [address] [place] [address] Arrived Health Maintenance Due Date Last Done Comments DISCUSS TOBACCO CESSATION (REFER TO SMARTSET #0931) 1940 Depression Screening, Annual for Pts 12 [...] this encounter Medical Devices Implanted Type Area Computer Language Coder Device Identifier Shelf Expiration Date Model / Serial / Lot Stent 7x40 Precise [id number] - [id number] Implanted:Qty : 1 on 02/27/2023 by Bennett Quevedo MD at OR [facility] Left: Carotid CORDIS [facility] [place] [id number] 12/23/2023 [id number] / / [id number] documented as of this encounter Visit Diagnoses Diagnosis 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 No Code Status History Code Status [...] the patient have Health Care Power of It Teacher? No Healthcare Agents on File Name Relationship Healthcare Agent Relationship Communication Thania Regalado Significant Other Health Care Ag ent (per Health Care Power of It Teacher document) Care Teams Powder Blender Relationship Specialty Start Date End Date James Madsen PA-C [address] [place] [address] PCP - General Physician Support Technician 02/24/22 documented as of this encounter
--- OUTSIDE RECORDS SUMMARY | 2023-08-24 16:53 | External Medical Summary | Summary of Care ---
Author Name Unknown Organization [facility] Address [address] [place] [address] Phone [phone] Care Team Providers Care Army Manager Name Role Phone James Madsen PA-C Primary Care Provider + Reason for Visit * Reason Comments Dosage Adjustment Via Phone (anticoag Cl inic) Encounter Details Date Type Department Care Team Description 04/01/2023 Pharmacy Neurology, [place] [address] [place] [address] [place], Pharmacist Neurology [address] [place] [address] Encounter for long-term current use of medication* Allergies Active Allergy Reactions Severity Noted Date Comments Tiotropium Other (Please comment) High 12/20/2019 "Couldn't catch his breath" documented as of this encounter (statuses as of 04/01/2023) Medications Medication Sig Dispensed Refills Start Date [...] as of this encounter (statuses as of 04/01/2023) Active Problems Problem Noted Date COPD with [...] 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 Dyslipidemia, goal to be determined 01/12/2003 08/07/2009 Overview: Per Lipid Taxonomy. documented as of this encounter (statuses as of 04/01/2023) Immunizations Name Administration Dates Next Due COVID-19 [...] Progress Notes * Georgia Ashford RPh - 04/01/2023 10:48 AM EDT Patient cancelled lab draw for today and rescheduled to match appointment 04/17. Please contact patient to ask if labs can be completed before this date. If not, please send back to [facility]. documented in this encounter Plan of Treatment Upcoming Encounters Date Type Specialty Care Team Description 04/17/2023 Laboratory Laboratory [facility] B1a [address] [place] [address] 04/17/2023 Office Visit Neurological Surgery Francois Henry PA-C [address] [place] [address] Health Maintenance Due Date Last Done Comments DISCUSS TOBACCO CESSATION (REFER TO SMARTSET #3291) 1940 Depression Screening, Annual for Pts 12 [...] this encounter Medical Devices Implanted Type Area Literacy Coach Device Identifier Shelf Expiration Date Model / Serial / Lot Stent 7x40 Precise [id number] - [id number] Implanted:Qty : 1 on 02/27/2023 by Bennett Quevedo MD at [facility] Left: Carotid CORDIS [employer] [place] [id number] 12/23/2023 [id number] / / [id number] documented as of this encounter Visit Diagnoses Diagnosis Encounter for long-term current use of medication- Primary documented in this encounter Advance Directives Documents on File Type Date Recorded Patient Orchard Pruner Expl anation Advance Directives and Living Will 02/22/2023 ADVANCE DIRECTIVE / LIVING WILL Power of Restoration Ecologist 02/22/2023 POWER OF A TTORNEY Latest Code Status on File Code Status Date Activated Date Inactivated Comments Full Code 03/19/2023 10:35 PM 03/22/2023 5:08 PM This order reflects the patients wishes and were consensually agreed upon. Question Answer Comments Discussion of Advance Directives occurred with: Patient Does the patient have a Living Will? No Does the patient have Health Care Power of Restoration Ecologist? No Code Status History Code Status Date [...] the patient have Health Care Power of Restoration Ecologist? No Care Teams Army Manager Relationship Specialty Start Date End Date James Madsen PA-C [address] [address] [place] [address] PCP - General Physician Furniture Refinisher 02/24/22 documented as of this encounter
--- OUTSIDE RECORDS SUMMARY | 2023-08-24 16:53 | External Medical Summary | Summary of Care ---
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 GERD (gastroesophageal reflux disease) 0 01/12/2003 GENERAL OSTEOARTHROSIS 01/12/2003 Major depression, single episode 003 Tobacco use disorder 01/12/2003 Seizure disorder 09/21/2002 BPH (benign prostatic hyperplasia) Chronic neck pain documented as of this encounter (statuses as of 04/01/2023) Resolved Problems Problem Noted Date Resolved Date F/u for non Q wave myocardial infarction 003 03/16/2009 Overview: Modified by [facility] [place] Protocol #5. Dyslipidemia, goal to be determined [...] as of this encounter Progress Notes * Carrie Limon chute boss - 04/01/2023 11:31 AM EDT LVM requesting patient please complete verify now labs within the next 10 days if possible Follow up in 1 week for results * Georgia Ashford RP - 04/01/2023 10:48 AM EDT Patient cancelled lab draw for today and rescheduled to match appointment 04/17. Please contact patient to ask if labs can be completed before this date. If not, please send back to [facility]. documented in this encounter Plan of Treatment Upcoming Encounters Date Type Specialty Care Team Description 04/09/2023 Pharmacy Neurology [place], Pharmacist Neurology [address] [place], [place] [phone] 04/17/2023 Laboratory Laboratory [place], Lab B1a [address] [place], [place] [phone] 04/17/2023 Office Visit Neurological Surgery Francois Henry PA-C [address] [place], [place] [phone] Health Maintenance Due Date Last Done Comments DISCUSS TOBACCO CESSATION (REFER TO SMARTSET #2437) 1940 Depression Screening, Annual for Pts 12 [...] this encounter Medical Devices Implanted Type Area Zoo Keeper Device Identifier Shelf Expiration Date Model / Serial / Lot Stent 7x40 Precise [id number] - [id number] Implanted:Qty : 1 on 02/27/2023 by Bennett Quevedo MD at OR [facility] Left: Carotid CORDIS [place] [id number] 12/23/2023 [id number] / / [id number] documented as of this encounter Visit Diagnoses Diagnosis Encounter for long-term current use of medication- Primary documented in this encounter Advance Directives Documents on File Type Date Recorded Patient Senior J2Ee Developer Expl anation Advance Directives and Living Will 02/22/2023 ADVANCE DIRECTIVE / LIVING WILL Power of News Reporter 02/22/2023 POWER OF A TTORNEY Latest Code Status on File Code Status Date Activated Date Inactivated Comments Full Code 03/19/2023 10:35 PM 03/22/2023 5:08 PM This order reflects the patients wishes and were consensually agreed upon. Question Answer Comments Discussion of Advance Directives occurred with: Patient Does the patient have a Living Will? No Does the patient have Health Care Power of News Reporter? No Code Status History Code Status Date [...] the patient have Health Care Power of News Reporter? No Care Teams Manager Management Relationship Specialty Start Date End Date James Madsen PA-C [address] [address] [place] [address] PCP - General Physician Direct Sales Professional 02/24/22 documented as of this encounter
--- OUTSIDE RECORDS SUMMARY | 2023-08-24 16:53 | External Medical Summary | Summary of Care ---
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 documented in this encounter Plan of Treatment Upcoming Encounters Date Type Specialty Care Team Description 04/09/2023 Pharmacy Neurology [place], Pharmacist Neurology [address] [place], [place] [phone] 04/17/2023 Laboratory Laboratory [place], Lab B1a [address] [place], [place] [phone] 04/17/2023 Office Visit Neurological Surgery Francois Henry PA-C [address] [place], [place] [phone] Health Maintenance Due Date Last Done Comments DISCUSS TOBACCO CESSATION (REFER TO SMARTSET #5894) 1940 Depression Screening, Annual for Pts 12 [...] this encounter Medical Devices Implanted Type Area Automatic Nailing Machine Feeder Device Identifier Shelf Expiration Date Model / Serial / Lot Stent 7x40 Precise [id number] - [id number] Implanted:Qty : 1 on 02/27/2023 by Bennett Quevedo MD at OR [facility] [place] Left: Carotid CORDIS [place] [id number] 12/23/2023 [id number] / / [id number] documented as of this encounter Visit Diagnoses Diagnosis Encounter for long-term current use of medication- Primary documented in this encounter Advance Directives Documents on File Type Date Recorded Patient Check Clerk Expl anation Advance Directives and Living Will 02/22/2023 ADVANCE DIRECTIVE / LIVING WILL Power of Dry Cans Operator 02/22/2023 POWER OF A TTORNEY Latest Code Status on File Code Status Date Activated Date Inactivated Comments Full Code 03/19/2023 10:35 PM 03/22/2023 5:08 PM This order reflects the patients wishes and were consensually agreed upon. Question Answer Comments Discussion of Advance Directives occurred with: Patient Does the patient have a Living Will? No Does the patient have Health Care Power of Dry Cans Operator? No Code Status History Code Status Date [...] the patient have Health Care Power of Dry Cans Operator? No Care Teams Master Planner Relationship Specialty Start Date End Date James Madsen PA-C [address] [address] [place] [address] PCP - General Physician Check Clerk 02/24/22 documented as of this encounter
--- OUTSIDE RECORDS SUMMARY | 2023-08-24 16:53 | External Medical Summary | Summary of Care ---
Author Name Unknown Organization [facility] Address [address] [place] [place] [address] Phone [phone] Care Team Providers Care Senior Cost Analyst Name Role Phone James Madsen PA-C Primary Care Provider + Reason for Referral * Evaluate & Treat - Unlimited Visits (Within 3 days (urgent)) - Pending Review Specialty Diagnoses / Procedures Referred By Nickie t Referred To Contact Physical Therapy / Physical Medicine And Rehab Diagnoses Ambulatory dysfunction Marcio Tanner MD [address] [place] [address] Referral ID Status Reason Start Date Expiration Date Visits Requested Visits Authorized [id number] Pending Review Specialty Services Required 03/22/[phone] Question Answer Referral Priority Within 3 days (urgent) Comments Power back Evaluate and treat Discharge Order * Evaluate & Treat - Unlimited Visits (Within 3 days (urgent)) - Pending Review Specialty Diagnoses / Procedures Referred By Nickie davis Referred To Contact Occupational Medicine / Occupational Therapy Diagnoses Ambulatory dysfunction Marcio Tanner MD [address] [place] [address] Referral ID Status Reason Start Date Expiration Date Visits Requested Visits Authorized [id number] Pending Review Specialty Services Required 03/22/[phone] Question Answer Referral Priority Within 3 days (urgent) Comments Power back Evaluate and treat Discharge Order Reason for Visit * Reason Comments Short of Breath * Auth/Cert Specialty Diagnoses / Procedures Referred By Contdidi t Referred To Contact Diagnoses SIRS (systemic inflammatory response syndrome) ([facility]) Referral ID Status Reason Start Date Expiration Date Visits Re quested Visits Authorized [id number] [phone] Encounter Details Date Type Department Care Team Description 03/19/2023 - 03/22/2023 Hospital Encounter ACU [facility], Acute Care Unit, Main Hospital 2nd Floor [address] [place], [place] [id number] Denise Spangler, DO [address] [place] [address] Marcio Tanner MD [address] [facility] [place] [address] Various: [email or web address] Allergies Active Allergy Reactions Severity Noted Date Comments Tiotropium Other (Please comment) High 12/20/2019 "Couldn't catch his breath" documented as of this encounter (statuses as of 03/23/2023) Medications Medication Sig Dispensed Refills Start Date End Date Status TEGRETOL 200 MG PO TABSIndications: Convulsions (HCC) one pill three times daily 90 [...] Additional Information Patient not taking.Reported on 03/20/2023 Budesonide-Formo terol Fumarate 160-4.5 MCG/ACT Inhalation Aerosol (Symbicort) Inhale [...] walking 1 Each 0 02/25/2022 Active Calcium Carbonate-Vitami n D 500-200 MG-UNIT Oral Tablet Take by [...] by mouth in the morning. 0 Active Baclofen 10 MG Oral Tablet (Lioresal) Take 1 Tablet by mouth 3 times a day as needed for Muscle spasms. 90 Tablet 0 02/21/2023 03/23/2023 Active Midodrine HCl 5 MG Oral Tablet [...] L/min(Oxygen) as directed at bedtime. 0 Active predniSONE 10 MG Oral Tablet (Deltasone) Take 4 Tablets by mouth daily for 2 days, THEN 3 Tablets daily for 2 days, THEN 2 Tablets daily for 2 days, THEN 1 Tablet daily for 2 days. 20 Tablet 0 03/22/2023 03/30/2023 Active Azithromycin 250 MG Oral Tablet (Zithromax) Take 2 tablets by mouth daily until complete 4 Tablet 0 03/22/2023 Active Azithromycin 250 MG Oral Tablet (Zithromax) - 4 Tablet 0 03/22/2023 03/22/2023 Discontinue d(Medicatio n/Dose Changed) documented as of this encounter (statuses as of 03/23/2023) Active Problems Problem Noted Date COPD with [...] aneurysm without ruptur e 06/19/2021 Atherosclerosis of tangirnaq ar ri[place] of right lower extremity with [...] as of this encounter (statuses as of 03/23/2023) Resolved Problems Problem Noted Date Resolved Date F/u for non Q wave myocardial infarction 003 03/16/2009 Overview: Modified by Acute NC Protocol #5. Dyslipidemia, goal to be determined 01/12/2003 08/07/2009 Overview: Per Lipid Taxonomy. documented as of this encounter (statuses as of 03/23/2023) Immunizations Name Administration Dates Next Due COVID-19 [...] Tobacco: Every Day Cigars Smokeless Tobacco: Never Tobacco Cessation:Ready to Q uit: Yes; Counseling Given: Yes Comments:Now down to 1/2 pack/day of small cigars Alcohol Use Standard Drinks/Week Comments Not Currently 0 (1 standard drink = 0.6 oz pur e alcohol) occas. Sex Assigned at Date Recorded Not on file Job Start Date Occupation Industry Not on file Not on file Not on file documented as of this encounter Last Filed Vital Signs Vital Sign Reading Time Taken Comments Blood Pressure 126/76 03/22/2023 7:49 AM EDT Pulse 63 03/22/2023 7:49 AM EDT Temperature 36.3 C (97.3 F) 03/22/2023 7:49 AM ED T Respiratory Rate 18 03/22/2023 7:49 AM EDT Oxygen Saturation 93% 03/22/2023 7:49 AM EDT Inhaled Oxygen Concentration - - Weight 40.6 kg (89 lb 8.1 oz) 03/22/2023 7:22 AM EDT Height 170.2 cm (5' 7") 03/19/2023 11:05 PM EDT Body Mass Index 14.02 03/19/2023 11:05 PM EDT documented in this encounter Functional [...] 03/20/2023 documented as of this encounter Discharge Summaries * Marcio Tanner MD - 03/22/2023 11:24 AM EDT [place] [id number] [facility] [id number] Admission Date: 03/19/2023 Discharge Date: 03/22/2023 RECOMMENDED TO DO FOR NEXT PROVIDER(S): PT/OT recommended SNF. Patient refused and went home. He has ambulatory dysfunction. At risk of fall. 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 ADMISSION HISTORY & PHYSICAL EXAM (focused): Patient is an 82-year-old male with significant past medical history CAD, HFpEF, aortic stenosis, hyperlipidemia, carotid artery stenosis status post ICA stent, AAA, COPD, her, PUD and tobacco abuse.Presents to our facility with complaints of sinus congestion and shortness a breath. Patient presents as described above. He reports sinus congestion times 3-4 days. He reports a postnasal drip draining down the back of his throat. He states he does have a dry, sometmes productive cough of whitish/greenish colored sputum. He has not been able to produce any phlegm since arrival to the ED. The drainage and constant cough have made it difficult for him to breathe. He states that he uses 2L O2 at night, however, he tried using it today and it was no help. He also uses breathing treatments at home, which did offer him mild relief, but did resolve his symptoms. He continues to smoke and smoking cessation was discussed. He also reports bilateral lower extremity swelling. Patient has recent history of admission to our facility, however, eventually required transfer to [facility] for suspected seizure activity. Upon arrival to their facility, workup suggested a CVA secondary to severe left ICA stenosis. He did receive a stent during that admission. He was discharged home in stable condition on 03/13/2023, however, reports that he has been experiencingswelling in his lower extremities since discharge. He denies chest pain. Patient reports that he has been taking his prescribed medications as directed, including aspirin and half strength Plavix daily. Coughing, lying flat and activity seem to worsen his symptoms while rest, breathing treatments and oxygen seem to offer relief. Aside from the above-mentioned symptoms, the patient reports no further complaints. Denies fevers, chills, loss of sense of taste or smell, exposure to COVID-19, chest pain, abdominal pain, nausea, vomiting, diarrhea or constipation. There are no changes to bladder function Subsequent workup at our facility included a chest x-ray which is negative for acute cardiopulmonary process. There are mild COPD changes noted. Routine labs are essentially unremarkable except for aelevated troponin at 49 which appears to be chronic and within his normal range. Hemoglobin is 10.4and also chronic within his normal range. There are no signs or symptoms bleeding at this time. BNPwas normal at 247. Lactic acid was normal. PH was normal at 7.37. IIQU-[id number] is negative. RVP is negative. EKG reveals atrial sensed and ventricularly paced rhythm at 83 beats per minute prolonged AV conduction delay. Review of chart suggests a recent cardiac echo on 02/24/2023 revealing an ejecti on fraction of 50% wall motion abnormality consistent with intraventricular conduction delay. Thereis diffuse right ventricular hypokinesis noted. There is atrial valve calcification with mild to moderate aortic stenosis and moderate tricuspid regurgitation. Vital signs reveal an afebrile patient 37 C. Heart rate is 88 and regular. Respirations are 24 and nonlabored saturating 99% on room air.Blood pressure is 140/75. While in the emergency room the patient received 2 albuterol treatments and 40 mg of IV Solu-Medrol BP: 140 mmHg/75 mmHg (03/19/232154) Pulse: 88 (03/19/232154) Temp: 37 C (03/19/232006) Resp: 24 (03/19/232154) SpO2: 99 % (03/19/232154) Physical Exam Vitals and nursing note reviewed. Constitutional: Comments: Frail in appearance HENT: Head: Normocephalic and atraumatic. Mouth/Throat: Pharynx: Oropharynx is clear. Eyes: Extraocular Movements: Extraocular movements intact. Pupils: Pupils are equal, round, and reactive to light. Neck: Vascular: No JVD. Cardiovascular: Rate and Rhythm: Normal rate and regular rhythm. Pulses: Normal pulses. Heart sounds: Murmur heard. Pulmonary: Effort: Pulmonary effort is normal. Breath sounds: Examination of the right-upper field reveals decreased breath sounds and wheezing. Examination of the left-upper field reveals decreased breath sounds and wheezing. Examination of the right-middle field reveals decreased breath sounds and wheezing. Examination of the left-middle field reveals decreased breath sounds and wheezing. Examination of the right-lower field reveals decreased breath sounds and wheezing. Examination of the left- lower field reveals decreased breath sounds, wheezing and rhonchi. Decreased breath sounds, wheezing and rhonchi present. Abdominal: General: Bowel sounds are normal. Palpations: Abdomen is soft. Musculoskeletal: General: Normal range of motion. Cervical back: Normal range of motion and neck supple. Right lower leg: Edema present. Left lower leg: Edema present. Comments: 2+ B/L pitting pedal /ankle edema Skin: General: Skin is warm and dry. Capillary Refill: Capillary refill takes less than 2 seconds. Neurological: General: No focal deficit present. Mental Status: He is alert and oriented to person, place, and time. Psychiatric: Mood and Affect: Mood normal. Behavior: Behavior normal. HOSPITAL COURSE (focused): The patient was admitted with shortness of breaths. Most of it was thought to be related to a COPD flare. He was also thought to have a component of fluid overload. He was treated for COPD exacerbation with IV Solu-Medrol, azithromycin, ceftriaxone. He is now being discharged on p.o. prednisone and azithromycin. For fluid overload, he was given a dose of IV Lasix with remarkable improvement in his leg swelling. Because of his history of aortic stenosis, we were conservative with the use of further Lasix due to fear of over diuresis in the setting of aortic stenosis. He did not require any further doses of Lasix. Appears euvolemic. He is breathing comfortably. He is anxious to go home. He was evaluated by PT and OT. They recommended SNF, however the patient refused and wants to go home. He is accompanied by his significant other at the bedside who agrees with being discharged to home. General: Awake, conversant, cachectic Heart: S1, S2/ regular rate and rhythm, no murmur, rubs or gallops Lungs: Diminished breath sounds bilaterally no wheezing heard. Normal effort. Abdomen: Soft/non-tender/non-distended. No hepatosplenomegaly Extremities: No clubbing/cyanosis. No edema Behavior: appropriate, cooperative Operations & Procedures: none Complications: none applicable Significant Lab and Imaging Results: As mentioned above Results Pending at Discharge: Lab Results Pending at Discharge: None MEDICATION UPDATES AT DISCHARGE START taking these medications INSTRUCTIONS Azithromycin 250 MG Tablet Commonly known as: Zithromax - predniSONE 10 MG Tabs Tablet Commonly known as: Deltasone Start taking on: March 22, 2023 Take 4 Tablets by mouth daily for 2 days, THEN 3 Tablets daily for 2 days, THEN 2 Tablets daily for2 days, THEN 1 Tablet daily for 2 days. CONTINUE taking these medications INSTRUCTIONS Acetaminophen 325 MG Tablet Commonly known as: Tylenol Notes to patient: Pain reliever Take 2 Tabs by mouth every 6 hours as needed for Pain. aspirin enteric coated 81 MG Tbec Notes to patient: Anti-inflammatory, blood thinner Take 1 Tablet by mouth at bedtime. Baclofen 10 MG Tablet Commonly known as: Lioresal Notes to patient: Muscle spasms Take 1 Tablet by mouth 3 times a day as needed for Muscle spasms. Budesonide-Formoterol 160-4.5 MCG/ACT inhaler Commonly known as: Symbicort Notes to patient: Asthma and/or COPD Inhale 2 Puffs by mouth in the morning and 2 Puffs before bedtime. Calcium Carbonate 500 mg + Vitamin D 5 mcg (200 units) per tab 500-5 MG-MCG per tablet Notes to patient: supplement Take by mouth 1 Tablet at noon AND 1 Tablet in the evening. Do not start before February 26, 2022. cholecalciferol (VIT D3) 1000 UNITS Tablet Commonly known as: Vitamin D3 Notes to patient: supplement Take by mouth 2 Tablets in the morning. Do not start before February 26, 2022. clopidogrel 75 MG Tablet Commonly known as: pLAVix Notes to patient: Blood thinner Take 0.5 (one-half) tablet by mouth in the morning. Diclofenac 1 % Gel Commonly known as: Voltaren Notes to patient: Arthritis pain reliever APPLY 1 G TOPICALLY 3 TIMES A DAY Docusate Sodium 100 MG Capsule Commonly known as: Colace Notes to patient: Stool softener Take 1 Cap by mouth 2 times a day. Famotidine 20 MG Tablet Commonly known as: Pepcid Notes to patient: Acid reflux TAKE 1 TABLET BY MOUTH DAILY BEFORE A MEAL Finasteride 5 MG Tablet Commonly known as: Proscar Notes to patient: Enlarged prostate Take 1 Tablet by mouth in the morning. fluticasone 50 MCG/ACT nasal spray Commonly known as: Flonase Notes to patient: Rhinitis SPRAY 2 SPRAYS INTO EACH NOSTRIL EVERY DAY folic acid 1 MG Tablet Notes to patient: supplement Take 1 Tablet by mouth in the morning. Furosemide 20 MG Tablet Commonly known as: Lasix Notes to patient: Diuretic - get rid of excess fluid Take 1 Tablet by mouth daily as needed (chest pressure / weight gain). GetGo Rolling Walker Misc Notes to patient: Ambulation assistance To assist with proper walking Klor-Con 10 10 MEQ Tbcr Generic drug: potassium chloride ER Notes to patient: Potassium supplement Take 1 Tablet by mouth in the morning. metoprolol succinate XL 25 MG Tb24 Commonly known as: toPROL XL Notes to patient: Blood pressure, heart Take 0.5 Tablets by mouth in the morning. midodrine 5 MG Tablet Commonly known as: Proamatine Notes to patient: Low blood pressure Take 1 Tablet by mouth three times per day (morning, noon, & before bedtime) Mirtazapine 30 MG Tablet Commonly known as: Remeron Notes to patient: Depression, increase appetite Take 1 Tablet by mouth at bedtime. oxygen Gas Notes to patient: Oxygen supplement Use 2 L/min(Oxygen) as directed at bedtime. pantoprazole 40 MG Tbec Commonly known as: Protonix Notes to patient: Acid reflux Take 1 Tablet by mouth in the morning and 1 Tablet before bedtime. 28-0.8 MG Tabs Notes to patient: supplement Take 1 Tablet by mouth every morning. Simvastatin 40 MG Tablet Commonly known as: Zocor Notes to patient: High cholesterol Take 1 Tablet by mouth every evening. tamsulosin 0.4 MG Capsule Commonly known as: Flomax Notes to patient: Enlarged prostate - helps with urinary urgency and/or frequency Take 2 Capsules by mouth in the morning. TEGretol 200 MG Tablet Generic drug: carBAMazepine Notes to patient: seizures one pill three times daily tiZANidine HCl 4 MG Capsule Notes to patient: Muscle spasms Take 1 Capsule by mouth 3 times a day as needed for Muscle spasms. traMADol 50 MG Tablet Commonly known as: Ultram Notes to patient: Pain reliever Take by mouth 0.5 Tablets every 6 hours as needed for Pain, Severe (pain intensity 7 to 10/10). Ventolin HFA 108 (90 Base) MCG/ACT Aers Notes to patient: Wheezing or shortness of breath Inhale 2 Puffs by mouth every 4 hours as needed for Shortness of Breath or Wheezing. CONTINUE taking these medications but follow up with your Primary Care Physician (PCP). INSTRUCTIONS Lidocaine 4 % Ptch Commonly known as: Aspercreme Place topically on the skin 1 Patch in the morning. Do not start before February 26, 2022. Loratadine 10 MG Cap Take 1 Capsule by mouth in the morning. oxyCODONE 5 MG immediate release tablet Commonly known as: Oxy IR Take 1 Tablet by mouth every 4 hours as needed for Pain, Severe. Polyethylene Glycol 3350 packet Commonly known as: MiraLax Take 1 Packet by mouth daily. Sucralfate 1 GM/10ML suspension Commonly known as: Carafate Take 10 mL by mouth in the morning and 10 mL at noon and 10 mL in the evening and 10 mL before bedtime. SCHEDULED FOLLOW-UP: Future Appointments Appt Date/Time Provider Department 04/01/2023 2:20 PM Marleny Coleman [facility] Occupational Therapy Referral Physical Therapy Referral Other Information Indwelling Devices: LINES ALL Duration Peripheral Line Left;Lower;Posterior Arm 22 Gauge 2 days Vital Signs (last recorded): Most Recent Systolic BP: 126 mmHg (03/22/23748) Most Recent Diastolic BP: 76 mmHg (03/22/23748) Pulse: 63 (03/22/23748) Resp: 18 (03/22/23748) Most Recent Temperature: 36.28 C (03/22/23748) Weight: 40.6 kg (89 lb 8.1 oz) (03/22/23721) SpO2: 93 % (03/22/23748) O2 flow rate: 2 L/MIN (03/22/23 0000) Allergies: Tiotropium Activity: as tolerated Diet: cardiac diet Code status (this admission): Full Code Discussion of adv directives occurred with - adult: Patient Does patient have living will: No Does patient have health care power of commonwealth attorney: No Condition on Discharge: stable Isolation status: None Cognition: normal HOSPITAL CONSULTS ORDERED: CARE MANAGEMENT CONSULT IP ADULT PHYSICAL THERAPY CONSULT IP ADULT OCCUPATIONAL THERAPY CONSULT IP REFERRING PHYSICIAN: Ref: [id number]] NO STREET ADDRESS AVAILABLE None (office) None (fax) PRIMARY CARE PROVIDER: PCP: James Madsen PA-C [address] [place] [address] / [place] [phone] (office) [phone] (fax) Note: To contact a physician responsible for this patients hospital care, please call [facility] [phone]. I spent a total of 35 minutes coordinating, documenting, and providing care for this patient excluding time spent in the performance of separately billed services. documented in this encounter Discharge Instructions * Care Mgmt Instr - AVS* Glendy Gaviria RN - 03/22/2023 11:19 AM EDT Outpatient Technical Support Professional: No, not applicable (03/22/23 1116) You are being discharged on this date with no needs for the Care Management Team to address at thistime. Resume home physical therapy and occupational therapy with Mikel Garcia from [place]. Resume home oxygen provided by [facility]'s as instructed. Resume use of your rolling walker. Thank you, Glendy Gaviria, MSN, RN choir teacher documented in this encounter Progress Notes * Marcio Tanner MD - 03/21/2023 12:24 PM EDT PROGRESS NOTE - General Internal Medicine Service [address] [address] Name: James Ibarra Location: [place] [address] [id number] Date: 03/21/2023 Time: 12:24 PM SUBJECTIVE: Patient says that he feels much better compared to when he came to the hospital. Breathing better. Leg swelling has improved. Of note, he had a fall overnight. PT/OT on board. The patient is anxious to go home but per PT he will need placement OBJECTIVE: Most Recent Vital Signs: BP: 139 mmHg/79 mmHg (03/21/23 1200) Pulse: 85 (03/21/23 1200) Temp: 36.72 C (03/21/23 1200) Resp: 18 (03/21/23 1200) SpO2: 94 % (03/21/23 1200) Vital Signs Last 24 Hours: Systolic BP: Most Recent Systolic BP Av.3 mmHg Min: 112 mmHg Max: 141 mmHg Temperature: Most Recent Temperature Av.5 C Min: 36.11 C Max: 37.11 C Pulse: Pulse Av.9 Min: 68 Max: 90 Respirations: Resp Av.1 Min: 16 Max: 18 SpO2: SpO2 Av.3 % Min: 94 % Max: 98 % General: Awake, conversant, cachectic with intercostal and bitemporal muscle wasting Heart: S1, S2/ regular rate and rhythm, no murmur, rubs or gallops Lungs: Prolonged expiration with wheezing bilaterally. No bibasilar crackles heard. Normal effort. Abdomen: Soft/non-tender/non-distended. No hepatosplenomegaly Extremities: No clubbing/cyanosis. Improved leg edema bilaterally, down to trace edema Behavior: appropriate, cooperative LABS: Labs reviewed as indicated below: Potassium 3.5 Creatinine 0.7 Hemoglobin 9.9 IMAGING: XR CHEST 1 VIEW Final Result PROCEDURE INFORMATION: Exam: XR Chest Exam date and time: 03/19/2023 8:47 PM Age: 82 years old Clinical indication: Shortness of breath; Prior surgery; Surgery date: 6+ months; Surgery type: Pacemaker TECHNIQUE: Imaging protocol: Radiologic exam of the chest. Views: 1 view. COMPARISON: DX XR CHEST 1 VIEW 02/21/2023 6:26 PM FINDINGS: Tubes, catheters and devices: Pacemaker device. Lungs: Hyperlucent changes are demonstrated. Increase in the lung volumes is demonstrated. Pleural spaces: Unremarkable. No pleural effusion. No pneumothorax. Heart/Mediastinum: Unremarkable. No cardiomegaly. Bones/joints: Unremarkable. IMPRESSION IMPRESSION: 1. No evidence of acute cardiopulmonary disease. 2. Mild changes of chronic obstructive pulmonary disease. 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 prednisone -respiratory driven protocol -sputum culture -continue azithromycin -discontinue ceftriaxone -oxygen titration 88- 90% -flutter therapy HFpEF -not currently in exacerbation, possibly mild decompensation -chest x-ray as noted above, essentially negative -bilateral lower extremity pitting edema improved with IV Lasix. -will hold off on further Lasix dosing -cardiac echo 02/24/2023 with EF of 50% with wall motion abnormality consistent with interventricular conduction delay. Diffuse right ventricular hypokinesis. AV calcification with [id number] aortic stenosis. Moderate tricuspid regurgitation -caution for over-diuresis in the setting of aortic stenosis -heart failure quality measures -daily weights -I&Os -monitor electrolytes Chronically elevated troponin in the setting of CAD and hyperlipidemia -troponin flat -appears chronically elevated with the range of 33-69 -EKG atrial sensed ventricular paced rate at 83 beats per minute with prolonged AV conduction. -cardiac echo as noted above -monitor electrolytes -p.r.n. EKG Aortic stenosis -stable -caution with diuresis Carotid artery stenosis, status post left ICA stent -stable Anemia in the setting of peptic ulcer disease -stable, no signs or symptoms of bleeding -daily labs BPH -stable -monitor urine output -p.r.n. bladder scan straight cath for PVR greater 350 mL Seizure disorder -stable, no signs of seizure activity -continue Tegretol Ambulatory dysfunction -status post fall this morning PT/OT recommends placement All other pre-hospital problems at baseline. Diet: Heart healthy, 1800 mL fluid restricted GI prophylaxis: Omeprazole DVT/PE prophylaxis: SubQ Lovenox Code status: Full code Patient was seen and evaluated bedside. PHARMACOLOGIC VTE PROPHYLAXIS: Enoxaparin CODE STATUS: Full Code EXPECTED DISCHARGE DATE: No information available I spent 30 minutes in the care of this patient. The time was spent in speaking to the patient, the nurse, case management, social work, reviewing the chart since admission that include previous notes, labs, vital signs, radiology images, formulating a plan, placing orders. * Xavi Arias PA-C - 03/21/2023 5:08 AM EDT Received tiger text at 4:51 a.m. informing me that nursing found patient on the floor. Arrived to bedside to find the patient alert and oriented x3 and without complaint. Small skin tear to left shoulder and right lateral knee. Patient attempting to go to the restroom and had SCDs on. Bed alarm didnot alert. Nursing instructed to monitor with neuro checks q.2 hours times 4. No imaging or workup required at this time. Associated attestation - Marcio Tanner MD - 03/21/2023 7:42 AM EDT I did not see the patient at the time of admission, however I reviewed the advanced practitioner documentation, provided personal direction in the services rendered and agree with the findings, diagnosis and plan as documented by the MICAELA. * Marcio Tanner MD - 03/20/2023 1:41 PM EDT PROGRESS NOTE - General Internal Medicine Service [facility]-[address] [id number] Name: James Ibarra Location: [facility] MH2 [id number] Date: 03/20/2023 Time: 1:41 PM SUBJECTIVE: Patient says that he feels much better compared to when he 1st came to the hospital. Breathing better. Leg swelling has improved. OBJECTIVE: Most Recent Vital Signs: BP: 137 mmHg/65 mmHg (03/20/23 1200) Pulse: 76 (03/20/23 1200) Temp: 36.39 C (03/20/23 1200) Resp: 17 (03/20/23 1200) SpO2: 97 % (03/20/23 1200) Vital Signs Last 24 Hours: Systolic BP: Most Recent Systolic BP Av mmHg Min: 110 mmHg Max: 152 mmHg Temperature: Most Recent Temperature Av.7 C Min: 36.33 C Max: 37.5 C Pulse: Pulse Av.1 Min: 76 Max: 92 Respirations: Resp Av.2 Min: 16 Max: 24 SpO2: SpO2 Av.3 % Min: 94 % Max: 100 % General: Awake, conversant Heart: S1, S2/ regular rate and rhythm, no murmur, rubs or gallops Lungs: Prolonged expiration with wheezing bilaterally. No bibasilar crackles heard. Normal effort. Abdomen: Soft/non-tender/non-distended. No hepatosplenomegaly Extremities: No clubbing/cyanosis. Improved leg edema bilaterally, down to 1+ Behavior: appropriate, cooperative LABS: Labs reviewed as indicated below: Potassium 3.5 Creatinine 0.7 Hemoglobin 9.9 IMAGING: XR CHEST 1 VIEW Final Result PROCEDURE INFORMATION: Exam: XR Chest Exam date and time: 03/19/2023 8:47 PM Age: 82 years old Clinical indication: Shortness of breath; Prior surgery; Surgery date: 6+ months; Surgery type: Pacemaker TECHNIQUE: Imaging protocol: Radiologic exam of the chest. Views: 1 view. COMPARISON: DX XR CHEST 1 VIEW 02/21/2023 6:26 PM FINDINGS: Tubes, catheters and devices: Pacemaker device. Lungs: Hyperlucent changes are demonstrated. Increase in the lung volumes is demonstrated. Pleural spaces: Unremarkable. No pleural effusion. No pneumothorax. Heart/Mediastinum: Unremarkable. No cardiomegaly. Bones/joints: Unremarkable. IMPRESSION IMPRESSION: 1. No evidence of acute cardiopulmonary disease. 2. Mild changes of chronic obstructive pulmonary disease. 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 -will hold off on further Lasix dosing -cardiac echo 02/24/2023 with EF of 50% with wall motion abnormality consistent with interventricular conduction delay. Diffuse right ventricular hypokinesis. AV calcification with [id number] aortic stenosis. Moderate tricuspid regurgitation -caution for over-diuresis in the setting of aortic stenosis -heart failure quality measures -daily weights -I&Os -monitor electrolytes Chronically elevated troponin in the setting of CAD and hyperlipidemia -troponin flat -appears chronically elevated with the range of 33-69 -EKG atrial sensed ventricular paced rate at 83 beats per minute with prolonged AV conduction. -cardiac echo as noted above -monitor electrolytes -p.r.n. EKG Aortic stenosis -stable -caution with diuresis Carotid artery stenosis, status post left ICA stent -stable Anemia in the setting of peptic ulcer disease -stable, no signs or symptoms of bleeding -daily labs BPH -stable -monitor urine output -p.r.n. bladder scan straight cath for PVR greater 350 mL Seizure disorder -stable, no signs of seizure activity -continue Tegretol All other pre-hospital problems at baseline. Diet: Heart healthy, 1800 mL fluid restricted GI prophylaxis: Omeprazole DVT/PE prophylaxis: SubQ Lovenox Code status: Full code Patient was seen and evaluated bedside. PHARMACOLOGIC VTE PROPHYLAXIS: Enoxaparin CODE STATUS: Full Code EXPECTED DISCHARGE DATE: No information available I spent 30 minutes in the care of this patient. The time was spent in speaking to the patient, the nurse, case management, social work, reviewing the chart since admission that include previous notes, labs, vital signs, radiology images, formulating a plan, placing orders. documented in this encounter H&P Notes * Xavi Arias PA-C - 03/19/2023 10:42 PM EDT Images from the original note were not included. [facility] PRESENTING PROBLEM: Sinus congestion, shortness of breath HPI: Patient is an 82-year-old male with significant past medical history CAD, HFpEF, aortic stenosis, hyperlipidemia, carotid artery stenosis status post ICA stent, AAA, COPD, her, PUD and tobacco abuse.Presents to our facility with complaints of sinus congestion and shortness a breath. Patient presents as described above. He reports sinus congestion times 3-4 days. He reports a postnasal drip draining down the back of his throat. He states he does have a dry, sometmes productive cough of whitish/greenish colored sputum. He has not been able to produce any phlegm since arrival to the ED. The drainage and constant cough have made it difficult for him to breathe. He states that he uses 2L O2 at night, however, he tried using it today and it was no help. He also uses breathing treatments at home, which did offer him mild relief, but did resolve his symptoms. He continues to smoke and smoking cessation was discussed. He also reports bilateral lower extremity swelling. Patient has recent history of admission to our facility, however, eventually required transfer to [facility] for suspected seizure activity. Upon arrival to their facility, workup suggested a CVA secondary to severe left ICA stenosis. He did receive a stent during that admission. He was discharged home in stable condition on 03/13/2023, however, reports that he has been experiencingswelling in his lower extremities since discharge. He denies chest pain. Patient reports that he has been taking his prescribed medications as directed, including aspirin and half strength Plavix daily. Coughing, lying flat and activity seem to worsen his symptoms while rest, breathing treatments and oxygen seem to offer relief. Aside from the above-mentioned symptoms, the patient reports no further complaints. Denies fevers, chills, loss of sense of taste or smell, exposure to COVID-19, chest pain, abdominal pain, nausea, vomiting, diarrhea or constipation. There are no changes to bladder function Subsequent workup at our facility included a chest x-ray which is negative for acute cardiopulmonary process. There are mild COPD changes noted. Routine labs are essentially unremarkable except for aelevated troponin at 49 which appears to be chronic and within his normal range. Hemoglobin is 10.4and also chronic within his normal range. There are no signs or symptoms bleeding at this time. BNPwas normal at 247. Lactic acid was normal. PH was normal at 7.37. [id number] is negative. RVP is negative. EKG reveals atrial sensed and ventricularly paced rhythm at 83 beats per minute prolonged AV conduction delay. Review of chart suggests a recent cardiac echo on 02/24/2023 revealing an ejection fraction of 50% wall motion abnormality consistent with intraventricular conduction delay. Thereis diffuse right ventricular hypokinesis noted. There is atrial valve calcification with mild to moderate aortic stenosis and moderate tricuspid regurgitation. Vital signs reveal an afebrile patient 37 C. Heart rate is 88 and regular. Respirations are 24 and nonlabored saturating 99% on room air.Blood pressure is 140/75. While in the emergency room the patient received 2 albuterol treatments and 40 mg of IV Solu-Medrol Subjective Past Medical History: Diagnosis Date (HFpEF) heart failure with preserved ejection fraction ([facility]) AAA (abdominal aortic aneurysm) ([facility]) Aortic stenosis BPH (benign prostatic hyperplasia) CAD (coronary artery disease) Chronic neck pain Convulsions ([facility]) 04/2002 COPD (chronic obstructive pulmonary disease) ([facility]) Dyslipidemia, goal to be determined 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 90% RCA, 90% LCx, both PTCA/Stent by [facility] Generalized osteoarthritis GERD (gastroesophageal reflux disease) History of CVA (cerebrovascular accident) Major depression, single episode Prostatitis, acute 2011 PUD (peptic ulcer disease) 2018 ruptured ulcer - needed clipped Tobacco use disorder Past Surgical History: Procedure Laterality Date CAROTID (INTERNAL) ARTERY CATHETHER PLACEMENT Bilateral 02/24/2023 CATHETER PLACEMENT INTERNAL CAROTID ARTERY performed by Bennett Quevedo MD [place] [facility] [place]TRACRANIAL ARTERIES CATH PLACEMENT Left 02/27/2023 CATHETER PLACEMENT EACH INTRACRANIAL BRANCH OF THE INTERNAL CAROTID OR VERTEBRAL ARTERIES performedby Bennett Quevedo MD at [place] [facility] [place] INTRACRANIAL INTRAVASCULAR STENT,INCL ANGIO Left 02/27/2023 TRANSCATHETER PLACEMENT OF INTRAVASCULAR STENTS, INTRACRANIAL performed by Bennett Quevedo MD at [place] [facility] [place] REVISE LUMBAR SPINE, ANTERIOR 1973 VERTEBRAL ARTERY CATHETER PLACEMENT Right 02/24/2023 CATHETER PLACEMENT VERTEBRAL ARTERY, performed by Bennett Quevedo MD at [place] [facility] [place] Family History Problem Relation Age of Onset Lung Disorder Mother Heart Disorder Brother Valvular d/o, TAA Heart Disorder Brother Arrhythmia Heart Disorder Sister NC in 40's As above otherwise non-contributory Social History Tobacco Use Smoking status: Every Day Packs/day: 1.50 Years: 40.00 Pack years: 60.00 Types: Cigarettes Smokeless tobacco: Never Tobacco comments: Now down to 1/2 pack/day of small cigars Vaping Use Vaping Use: Never used Substance Use Topics Alcohol use: Not Currently Comment: occas. Drug use: Never MEDICATIONS: Prior to admission medications have been reviewed. Classic 28-0.8 MG Oral Tablet Take 1 Tablet by mouth every morning. Ruba Génesis Wahlen,DO Needs Review Clopidogrel Bisulfate 75 MG Oral Tablet (pLAVix) Take 0.5 (one-half) tablet by mouth in the morning. Ruba Dhillon DO Needs Review Midodrine HCl 5 MG Oral Tablet (Proamatine) Take 1 Tablet by mouth three times per day (morning, noon, & before bedtime) Ruba Dhillon DO Needs Review Baclofen 10 MG Oral Tablet (Lioresal) Take 1 Tablet by mouth 3 times a day as needed for Muscle spasms. Ernst Llamas MD Needs Review tiZANidine HCl 4 MG Oral Capsule Take 1 Capsule by mouth 3 times a day as needed for Muscle spasms.History Per Patient Needs Review Calcium Carbonate-Vitamin D 500-200 MG-UNIT Oral Tablet Take by mouth 1 Tablet at noon AND 1 Tabletin the evening. Do not start before February 26, 2022. Jovany Brito MD Needs Review Vitamin D3 25 MCG (1000 UT) Oral Tablet (Vitamin D3) Take by mouth 2 Tablets in the morning. Do notstart before February 26, 2022. Jovany Brito MD Needs Review Budesonide-Formoterol Fumarate 160-4.5 MCG/ACT Inhalation Aerosol (Symbicort) Inhale 2 Puffs by mouth in the morning and 2 Puffs before bedtime. History Per Patient Needs Review Famotidine 20 MG Oral Tablet (Pepcid) TAKE 1 TABLET BY MOUTH DAILY BEFORE A MEAL History Per Patient Needs Review Folic Acid 1 MG Oral Tablet Take 1 Tablet by mouth in the morning. History Per Patient Needs Review Mirtazapine 30 MG Oral Tablet (Remeron) Take 1 Tablet by mouth at bedtime. History Per Patient Needs Review Tamsulosin HCl 0.4 MG Oral Capsule (Flomax) Take 2 Capsules by mouth in the morning. History Per Patient Needs Review acetaminophen (TYLENOL) 325 MG Tablet Take 2 Tabs by mouth every 6 hours as needed for Pain. Grzegorz Ching MD Needs Review docusate sodium (COLACE) 100 MG Capsule Take 1 Cap by mouth 2 times a day. Grzegorz Ching MD Needs Review Aspirin 81 MG Oral Tablet Delayed Release Take 1 Tablet by mouth in the morning. History Per Patient Needs Review pantoprazole (PROTONIX) 40 MG TBEC Take 1 Tablet by mouth in the morning and 1 Tablet before bedtime. History Per Patient Needs Review KLOR-CON 10 10 MEQ TBCR Take 1 Tablet by mouth in the morning. History Per Patient Needs Review metoprolol succinate XL (TOPROL XL) 25 MG TB24 Take 0.5 Tablets by mouth in the morning. History Per Patient Needs Review simvastatin (ZOCOR) 40 MG Tablet Take 1 Tablet by mouth every evening. History Per Patient Needs Review TEGRETOL 200 MG PO TABS one pill three times daily Marie Real MD Needs Review Loratadine 10 MG Oral Capsule Take 1 Capsule by mouth in the morning. History Per Patient Needs Review Sucralfate 1 GM/10ML Oral Suspension (Carafate) Take 10 mL by mouth in the morning and 10 mL at noon and 10 mL in the evening and 10 mL before bedtime. Jun Brennan MD Needs Review oxyCODONE HCl 5 MG Oral Tablet (Oxy IR) Take 1 Tablet by mouth every 4 hours as needed for Pain, Severe. Gray Jacobsen DO Needs Review traMADol HCl 50 MG Oral Tablet (Ultram) Take by mouth 0.5 Tablets every 6 hours as needed for Pain, Severe (pain intensity 7 to 10/10). Jovany Brito MD Needs Review GetGo Rolling Walker To assist with proper walking Jovany Brito MD Needs Review Lidocaine 4 % External Patch (Aspercreme) Place topically on the skin 1 Patch in the morning. Do not start before February 26, 2022. Jovany Brito MD Needs Review Diclofenac Sodium 1 % External Gel (Voltaren) APPLY 1 G TOPICALLY 3 TIMES A DAY History Per PatientNeeds Review Fluticasone Propionate 50 MCG/ACT Nasal Suspension (Flonase) SPRAY 2 SPRAYS INTO EACH NOSTRIL EVERYDAY History Per Patient Needs Review polyethylene glycol 3350 (MIRALAX) packet Take 1 Packet by mouth daily. Grzegorz Ching MD Needs Review Albuterol Sulfate (VENTOLIN HFA) 108 (90 Base) MCG/ACT AERS Inhale 2 Puffs by mouth every 4 hours as needed for Shortness of Breath or Wheezing. History Per Patient Needs Review finasteride (PROSCAR) 5 MG Tablet Take 1 Tablet by mouth in the morning. History Per Patient Needs Review furosemide (LASIX) 20 MG Tablet Take 1 Tablet by mouth daily as needed (chest pressure / weight gain). History Per Patient Needs Review ALLERGIES: Tiotropium ROS: Review of Systems HENT: Positive for congestion, postnasal drip and rhinorrhea. Eyes: Negative. Respiratory: Positive for cough, shortness of breath and wheezing. Cardiovascular: Positive for leg swelling. Gastrointestinal: Negative. Endocrine: Negative. Genitourinary: Negative. Musculoskeletal: Negative. Skin: Negative. Allergic/Immunologic: Negative. Neurological: Negative. Hematological: Negative. Psychiatric/Behavioral: Negative. All other systems reviewed and are negative. Objective Physical Exam Most Recent Vital Signs: BP: 140 mmHg/75 mmHg (03/19/232154) Pulse: 88 (03/19/232154) Temp: 37 C (03/19/232006) Resp: 24 (03/19/232154) SpO2: 99 % (03/19/232154) Physical Exam Vitals and nursing note reviewed. Constitutional: Comments: Frail in appearance HENT: Head: Normocephalic and atraumatic. Mouth/Throat: Pharynx: Oropharynx is clear. Eyes: Extraocular Movements: Extraocular movements intact. Pupils: Pupils are equal, round, and reactive to light. Neck: Vascular: No JVD. Cardiovascular: Rate and Rhythm: Normal rate and regular rhythm. Pulses: Normal pulses. Heart sounds: Murmur heard. Pulmonary: Effort: Pulmonary effort is normal. Breath sounds: Examination of the right-upper field reveals decreased breath sounds and wheezing. Examination of the left-upper field reveals decreased breath sounds and wheezing. Examination of the right-middle field reveals decreased breath sounds and wheezing. Examination of the left-middle field reveals decreased breath sounds and wheezing. Examination of the right-lower field reveals decreased breath sounds and wheezing. Examination of the left- lower field reveals decreased breath sounds, wheezing and rhonchi. Decreased breath sounds, wheezing and rhonchi present. Abdominal: General: Bowel sounds are normal. Palpations: Abdomen is soft. Musculoskeletal: General: Normal range of motion. Cervical back: Normal range of motion and neck supple. Right lower leg: Edema present. Left lower leg: Edema present. Comments: 2+ B/L pitting pedal /ankle edema Skin: General: Skin is warm and dry. Capillary Refill: Capillary refill takes less than 2 seconds. Neurological: General: No focal deficit present. Mental Status: He is alert and oriented to person, place, and time. Psychiatric: Mood and Affect: Mood normal. Behavior: Behavior normal. Peripheral Line Left;Lower;Posterior Arm 22 Gauge (Active) Number of days: 0 STUDIES: Labs and other studies reviewed with pertinent findings noted below: Troponin T, High Sensitivity [[id number]] (Abnormal) Collected: 03/19/232204 Updated: 03/19/232238 Specimen Source: Blood, Venous Troponin T, High Sensitivity 47High ng/L RespiratoryPathogen Panel,PCR [[id number]] (Normal) Collected: 03/19/232054 Updated: 03/19/232158 Specimen Type: Upper Respiratory Specimen Source: Nasal Turbinate Adenovirus by PCR Negative Coronavirus 229E by PCR Negative Coronavirus HKU1 by PCR Negative Coronavirus NL63 by PCR Negative Coronavirus OC43 by PCR Negative Coronavirus SARS-CoV-2 by PCR Negative Human Metapneumovirus by PCR Negative Rhinovirus/Enterovirus by PCR Negative Influenza A Virus by PCR Negative Influenza B Virus by PCR Negative Parainfluenza Virus 1 by PCR Negative Parainfluenza Virus 2 by PCR Negative Parainfluenza Virus 3 by PCR Negative Parainfluenza Virus 4 by PCR Negative Respiratory Syncytial Virus by PCR Negative Bordetella pertussis by PCR Negative Chlamydia pneumoniae by PCR Negative Mycoplasma pneumoniae by PCR Negative Bordetella parapertussis by PCR Negative BNP, NT-PRO [[id number]] (Normal) Collected: 03/19/232100 Updated: 03/19/232138 Specimen Source: Blood, Venous BNP, NT-Pro 247 pg/mL Narrative: Exclude Heart Failure: <300 pg/mL Diagnose Heart Failure: Age <50 yr: >450 pg/mL 50-75 yr: >900 pg/mL >75 yr: >1800 pg/mL GFR is 30-59 mL/min: >1200 pg/mL or Age-adjusted values GFR <30 mL/min: do not use, not reliable Prognostic threshold: 1000 pg/mL Comprehensive Metabolic Panel [[id number]] (Abnormal) Collected: 03/19/232100 Updated: 03/19/232134 Specimen Source: Blood, Venous BUN 17 mg/dL Creatinine 0.8 mg/dL Estimated Glomerular Filtration Rate 89 mL/min Sodium 134Low mmol/L Potassium 3.9 mmol/L Chloride 95Low mmol/L CO2 28 mmol/L Anion Gap 11 mmol/L Glucose 109 mg/dL Albumin 3.9 g/dL AST 21 U/L Alkaline Phosphatase 157High U/L Bilirubin, Total 0.3 mg/dL Calcium 9.4 mg/dL Protein 6.7 g/dL ALT 19 U/L Troponin T, High Sensitivity [[id number]] (Abnormal) Collected: 03/19/232100 Updated: 03/19/232133 Specimen Source: Blood, Venous Troponin T, High Sensitivity 49High ng/L CBC with WBC Differential [[id number]] (Abnormal) Collected: 03/19/232100 Updated: 03/19/232127 Specimen Source: Blood, Venous Narrative: The following orders were created for panel order CBC WITH WBC DIFFERENTIAL. Procedure Abnormality Status --------- ------ CBC[[id number]] Abnormal Final result DIFFERENTIAL, AUTOMATED[[id number]] Final result DIFFERENTIAL, TECHNOLOGI...[[id number]] Abnormal Final result Please view results for these tests on the individual orders. Differential, Automated [[id number]] Collected: 03/19/232100 Updated: 03/19/232127 Specimen Source: Blood, Venous Differential, Technologist Review [[id number]] (Abnormal) Collected: 03/19/232100 Updated: 03/19/232127 Specimen Source: Blood, Venous WBC 7.42 K/uL Neutrophils % 67.0 % Lymphocytes % 23.0 % Monocytes % 7.0 % Eosinophils % 2.0 % Myelocytes % 1.0High % Absolute Neutrophils 4.97 K/uL Absolute Lymphocytes 1.71 K/uL Absolute Monocytes 0.52 K/uL Absolute Eosinophils 0.15 K/uL Absolute Myelocytes 0.07High K/uL nRBCs -- Reactive Lymphocytes PresentAbnormal CBC [[id number]] (Abnormal) Collected: 03/19/232100 Updated: 03/19/232127 Specimen Source: Blood, Venous WBC 7.42 K/uL RBC 2.96 M/uL HGB 10.4Low g/dL HCT 31.8Low % MCV 107.4 fL MCH 35.1 pg MCHC 32.7 g/dL RDW 14.7 % PLT 358 K/uL MPV 10.1 fL Lactate, Whole Blood with Reflex if Abnormal [[id number]] (Normal) Collected: 03/19/232099 Updated: 03/19/232115 Specimen Source: Blood, Venous Lactate, Whole Blood 1.4 mmol/L Blood Gas, Venous [[id number]] (Abnormal) Collected: 03/19/232099 Updated: 03/19/232115 Specimen Source: Blood, Venous Temperature 37.0 C pH, Venous 7.374 units pCO2, Venous 57.7 mmHg pO2, Venous 23.3Low mmHg Base Excess, Venous 7.5High mmol/L Hemoglobin, Whole Blood 7.7Low g/dL Oxyhemoglobin, Venous 35.1Low % total Hgb Carboxyhemoglobin, Whole Blood 2.0High % total Hgb Methemoglobin, Whole Blood 1.1 % total Hgb Reduced Hemoglobin, Venous 61.8 % total Hgb O2 Content, Venous 3.8Low %vol Bicarbonate, Whole Blood 33.6High mmol/L Culture, Blood (Site 2) [[id number]] Collected: 03/19/232044 Updated: 03/19/232104 Specimen Source: Blood, Venous Culture, Blood [[id number]] Collected: 03/19/232100 Updated: 03/19/232103 Specimen Source: Blood, Venous Radiology Reports (Last 300 days) 03/19/232049 XR CHEST 1 VIEW Final result Details Impression: IMPRESSION: 1. No evidence of acute cardiopulmonary disease. 2. Mild changes of chronic obstructive pulmonary disease. 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 * DIFFERENTIAL AND PLAN: Admit to observation, telemetry COPD exacerbation in the setting recurrent tobacco abuse -as per HPI -IV Solu-Medrol 40 mg daily -respiratory driven protocol -sputum culture -empiric IV Rocephin and azithromycin -oxygen titration 88- 90% -flutter therapy HFpEF -not currently in exacerbation, possibly mild decompensation -chest x-ray as noted above, essentially negative -bilateral lower extremity pitting edema -cardiac echo 02/24/2023 with EF of 50% with wall motion abnormality consistent with interventricular conduction delay. Diffuse right ventricular hypokinesis. AV calcification with [id number] aortic stenosis. Moderate tricuspid regurgitation -IV Lasix -caution for over-diuresis in the setting of aortic stenosis -heart failure quality measures -daily weights -I&Os -monitor electrolytes -consider cardiology consult Chronically elevated troponin in the setting of CAD and hyperlipidemia -initial high sensitivity troponin of 49 with follow-up pending -appears chronically elevated with the range of 33-69 -EKG atrial sensed ventricular paced rate at 83 beats per minute with prolonged AV conduction. -cardiac echo as noted above -trend troponin until peak or down trending -monitor electrolytes -p.r.n. EKG -consider cardiology consult Aortic stenosis -stable -caution diuresis Carotid artery stenosis, status post left ICA stent -stable Anemia in the setting of peptic ulcer disease -stable, no signs or symptoms of bleeding -hemoglobin 10.4 and better than baseline, 7-8 range -daily labs BPH -stable -monitor urine output -p.r.n. bladder scan straight cath for PVR greater 350 mL Seizure disorder -stable, no signs of seizure activity -continue Tegretol All other pre-hospital problems at baseline. Diet: Heart healthy, 1800 mL fluid restricted GI prophylaxis: Omeprazole DVT/PE prophylaxis: SubQ Lovenox Code status: Full code Patient was seen and evaluated bedside. Plan of care established in collaboration with Dr. Tanner. PHARMACOLOGIC VTE PROPHYLAXIS: Enoxaparin CODE STATUS: Full Code EXPECTED DISCHARGE DATE: No information available Associated attestation - Marcio Tanner MD - 03/20/2023 8:03 AM EDT I did not see the patient at the time of admission, however I reviewed the advanced practitioner documentation, provided personal direction in the services rendered and agree with the findings, diagnosis and plan as documented by the MICAELA. Pt is admitted with COPD flare and mild fluid overload. He will treated with IV Solumedrol and was given IV Lasix. documented in this encounter Consult Notes * Winnie Mauricio, RDN - 03/21/2023 11:51 AM EDT CLINICAL NUTRITION CONSULT NOTE [facility] [address] [facility] [id number] Name: James Ibarra [address] Date: 03/21/2023 Time: 11:51 AM How patient was identified (select 2): date and Name Discussed in interdisciplinary rounds: Yes James Ibarra is a 82 year old male being seen for emaciated/cachectic appearance and significant unintentional weight loss Primary Diagnosis: COPD with acute exacerbation Other pertinent information: Patient was seen during rounds to assess nutrition risk and need for intervention, per patient appetite is good when he receives meals. Per I & O flow sheets tolerating 75% of meals. Reports he takes Boost plus once daily at home. Reinforced that patient is not likely meeting nutritional needs. NUTRITION ASSESSMENT: Past medical/surgical history and medications reviewed. Food/Nutrition-Related History Nutrition Support: Diet: Heart Healthy, 2 gm Sodium Previously followed diet: Regular Food Allergies/Intolerances: None Adult Energy Intake: No significant decrease Percentage of meal intake: Greater than 75% Oral Nutrition Supplement (ONS): Boost Plus (1 cup provides 360 calories, 14 grams protein, 45 grams carbohydrate) Bid Magic Cup (4 oz provides 290 calories, 9 grams protein, 38 grams carbohydrate) daily Pertinent medications/vitamins/minerals/supplements: Melatonin, calcium , vit D3, folic acid, potassium Pertinent Biochemical Data: Nutrition-Focused Physical Findings: Appearance: Cachectic Respiratory support: None Nasal/Oral: No issues identified Digestive: No issues identified Last Bowel Movement: 03/21/23 (03/21/23 1364) Cognition: Awake, alert Skin: Compromised Altered skin - right shoulder, 1x1 red / purple sanguinous, mild, ecchymotic altered skin left posterior finger- red sanguinous mild, intact skin tear right calf region- red - intact Nutrition Focused Physical Exam: NFPE completed on 03/21/23 Subcutaneous Fat Loss: Orbital fat pads: Severe Buccal fat: Severe Tricep: Severe Rib: Severe Muscle Loss: Temples: Severe Clavicles: Severe Shoulders: Severe Scapula: Severe Interosseous: Severe Quadriceps: Unable to assess Calves: Severe Edema Location: Lower extremities;Both (03/20/23 0000) Edema Assessment: +3 - Description (03/20/23 0000) Anthropometrics Measurements Height: 170.2 cm (5' 7") (03/19/23 2305) Admission weight: 101 lb 11.2 oz Weight: 46.1 kg (101 lb 11.2 oz) (03/21/23 0600) BMI: 14.88 (03/19/23 2305) Usual Body Weight: 114 lb - 2022 Iroquois weight: 118 lb - 53.6 kg [place]quois Weight Based on BMI: 18.5 Interpretation of Weight Change:Greater than 10% weight loss in 6 months (Severe) Weight Comment: 11-15% in the past 6 months - weight is variable Nutrition Prescription: Energy needs: 35-40 Kcal/kg Kcal/day: 4040-0592 Based on admission weight Protein needs: 1.2-2.0 gm/kg Protein: 55-92 Based on admission weight Fluid needs: 1 ml/1 kcal ml/kg Fluid: 2059-2004 ml/day Based on admission weight Malnutrition: Malnutrition Present: Yes (03/21/231226) Adult Malnutrition Classification: Severe (03/21/231226) Malnutrition Characteristics: Fat loss;Muscle loss;Inadequate energy intake;Weight loss (03/21/231226) Malnutrition Care Plan: Patient meets ASPEN/AND criteria for severe malnutrition. Plan to meet 50% of estimated calorie and 50% of estimated protein requirements via therapeutic diet and a nutrition intervention of oral nutrition supplements. If patient unable to achieve estimatedrequirements over next 3-5 days, will need to consider enteral nutrition. Dietitian Action: Oral nutritional supplement ordered/adjusted (03/21/231226) Boost Plus (1 cup provides 360 calories, 14 grams protein, 45 grams carbohydrate) BID Magic Cup (4 oz provides 290 calories, 9 grams protein, 38 grams carbohydrate) daily NUTRITION DIAGNOSIS: Malnutrition severe related to chronic illness as evidenced by patient consuming less than 75% of estimated energy requirements x 1 month, greater than 10% weight loss x 6 month, severe fat loss and severe muscle loss. Goals: Patient to consume greater than 50 % of daily meals and 50% of daily supplements within 3-5 days. NUTRITION INTERVENTION/PLAN: Orders: Oral nutrition supplement added Boost Plus (1 cup provides 360 calories, 14 grams protein, 45 grams carbohydrate) bid Magic Cup (4 oz provides 290 calories, 9 grams protein, 38 grams carbohydrate) daily Weight - obtain using standing scale Clinical Nutrition Recommendations: Diet: Removed Heart Healthy and Change diet to 2 gm sodium- due to severe malnutrition NUTRITION MONITORING AND EVALUATION: Nursing documentation flowsheets for percent meal intake Tolerance of supplement per patient/nursing report Lab values warranting change with MNT Weight for trends Plan follow-up: Will follow and adjust nutrition plan of care as medical condition requires. Please contact for change(s) in patient condition requiring earlier intervention. Winnie Mauricio RDN,LDN Clinical Dietitian II [place] [facility] * Sade Hodge, OT - 03/21/2023 8:14 AM EDTAssociated Order(s): ADULT OCCUPATIONAL THERAPY CONSULT IP GENERAL EVALUATION - Occupational Therapy [address] [id number] Name: James Ibarra Location: [facility] MH2 ACU-236/01 Date: 03/21/2023 Time: 10:01 AM James Ibarra is a 82 year old male. Patient Status: Inpatient Insurance: Payor: [facility] ([employer]) MEDICARE ADVANTAGE Plan: [employer] PPO Product Type:*No Product type* Patient Seen: at bedside, nursing cleared patient for therapy Patient Identified By: Name, ID Band and Date Diagnosis: COPD exacerbation (03/21/23813) Status of treatment: Evaluation completed (03/21/23813) Orders: OT evaluation and treatment (03/21/23813) Weight Bearing Status: Weight bearing as tolerated (03/21/23813) Precautions: Falls;Safety;Skin;Oxygen (03/21/23813) Total Treatment Time: 15 min (03/21/23813) Past Medical History: Past Medical History: Diagnosis Date (HFpEF) heart failure with preserved ejection fraction (HCC) AAA (abdominal aortic aneurysm) (HCC) Aortic stenosis BPH (benign prostatic hyperplasia) CAD (coronary artery disease) Chronic neck pain Convulsions ([facility]) 04/2002 COPD (chronic obstructive pulmonary disease) (HCC) Dyslipidemia, goal to be determined 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 90% RCA, 90% LCx, both PTCA/Stent by [facility] Generalized osteoarthritis GERD (gastroesophageal reflux disease) History of CVA (cerebrovascular accident) Major depression, single episode Prostatitis, acute 2011 PUD (peptic ulcer disease) 2018 ruptured ulcer - needed clipped Tobacco use disorder Past Surgical History: Past Surgical History: Procedure Laterality Date CAROTID (INTERNAL) ARTERY CATHETHER PLACEMENT Bilateral 02/24/2023 CATHETER PLACEMENT INTERNAL CAROTID ARTERY performed by Bennett Quevedo MD at [facility] INTRACRANIAL ARTERIES CATH PLACEMENT Left 02/27/2023 CATHETER PLACEMENT EACH INTRACRANIAL BRANCH OF THE INTERNAL CAROTID OR VERTEBRAL ARTERIES performedby Bennett Quevedo MD at [place] [facility] [place]TRACRANIAL INTRAVASCULAR STENT,INCL ANGIO Left 02/27/2023 TRANSCATHETER PLACEMENT OF INTRAVASCULAR STENTS, INTRACRANIAL performed by Bennett Quevedo MD at [place] [facility] [place] REVISE LUMBAR SPINE, ANTERIOR 1974 VERTEBRAL ARTERY CATHETER PLACEMENT Right 02/24/2023 CATHETER PLACEMENT VERTEBRAL ARTERY, performed by Bennett Quevedo MD at [place] [facility] Social History/Disposition Lives with: Friend (Wendy) (03/21/23813) Assistance available: Yes (03/21/23813) Dwelling type: Single story home (03/21/23813) Entry steps: 4 (03/21/23813) Inside steps: None (03/21/23813) Bedroom location: 1st floor (03/21/23813) Bath location: 1st floor full bath (03/21/23813) Prior Level of Function Reported by: Patient (03/21/23813) Ambulation: Ambulatory with device (03/21/23813) Ambulatory Device: Rolling walker (03/21/23813) Grooming: Independent (03/21/23813) Bathing: Independent (03/21/23813) Dressing: Independent (03/21/23813) Feeding: Independent (03/21/23813) Toileting: Independent (03/21/23813) Meal Prep: Independent (03/21/23813) Homemaking: Independent (03/21/23813) Shopping: Assistance (03/21/23813) Medication Management: Independent (03/21/23813) Money Management: Independent (03/21/23813) Occupation/Leisure Skills: Retired (03/21/23813) Driving: Yes (03/21/23813) Durable Medical Equipment at home: Grab bars;Shower chair;Rolling walker (03/21/23813) Subjective: "I fell this morning in the bathroom. These socks are slippery." Pain: No complaints of pain Observations Consciousness: Alert (03/21/23813) Orientation: Oriented times 4 (03/21/23813) Psychosocial: Patient can communicate basic needs;Patient can converse in a social setting (03/21/23813) Sitting posture: Forward head;Rounded shoulders (03/21/23813) Standing posture: Forward head;Rounded shoulders (03/21/23813) Safety awareness: The Patient verbalizes insight of current deficits.;The Patient demonstrates carryover of insight during functional tasks. (03/21/23813) Other Findings Endurance: Fair;Functional activity (03/21/23813) Light touch sensation: Intact (03/21/23813) Proprioception: Intact (03/21/23813) Coordination: Intact (03/21/23813) Tone: Normal tone (03/21/23813) Edema: No edema noted (03/21/23813) Current Functional Status: Bilateral Upper Extremity Hand Dominance: Right (03/21/23813) Range of Motion: WFL (03/21/23813) Strength Assessment: Deficits noted (03/21/23813) LUE: Shoulder;Elbow;Wrist;4/5 (03/21/23813) RUE: Shoulder;Elbow;Wrist;4/5 (03/21/23813) Dressing Lower Body: Minimal Assistance (to andree/doff slipper socks) (03/21/23813) Functional Ambulation Assistive Device: Rolling walker (03/21/23813) Distance in feet:: 40 (03/21/23813) Level of Assistance: Contact Guard (03/21/23813) with O2 sats 90% on room air post ambulation Bed Mobility Roll (Right): Supervision (03/21/23813) Roll (Left): Supervision (03/21/23813) Supine-Sit: Supervision (Please comment) (with head of bed elevated and use of bed rails) () Sidelying - Sit: Supervision (Please comment) (03/21/23813) OT Transfers Sit-Stand: Contact Guard (03/21/23813) Stand-Sit: Contact Guard (03/21/23813) Bed-Chair: Contact Guard (03/21/23813) Balance Sit (Static): Normal (03/21/23813) Sit (Dynamic): Good (03/21/23813) Stand (Static): Good (03/21/23813) Stand (Dynamic): Fair (03/21/23813) Alarm Status Patient positioned in: Chair (03/21/23813) With: Pressure pad alarm intact and functioning and call grullon in reach (03/21/23813) Patient and Family Goals: to return home Patient Education Education Topic: Role of OT;Deep breathing techniques (03/21/23813) Method of Education: Verbalized to patient (03/21/23813) Education Provided to: Patient (03/21/23813) Response to Education: Receptive and agreeable to education (03/21/23813) Barriers to learning: None (03/21/23813) Preferred learning method: Combination (03/21/23813) Treatment Provided: Evaluation Moderate Complexity 15 minutes - 49286: Patient was cooperative and pleasant during treatment session. Moderate complexity evaluation performed and 3-5 activity limitations were identified, including ADL deficit, functional mobility deficit, bed mobility deficit and decreased endurance. Minimal or moderate modification of the functional task was necessary to complete the evaluation. Deficits Requiring O.T. Treatment: Deficits requiring O.T. treatment needs: ADL/self-care;Endurance;Functional mobility;Weakness (03/21/23813) Goals: Dressing: Upper: modified independent (100% with device and additional time). Lower: supervision. Bed Mobility with: Supine to Sit: modified independent (with device or slow) Sit to supine: modified independent (with device or slow). Transfers with: Sit to Stand: modified independent (with device or slow) Stand to Sit: modified independent (with device or slow) Toilet: modified independent (with device or slow). Functional Ambulation: Assistive Device: rolling walker and level of Assistance: supervision . Demonstrates endurance at Good for functional task completion. Goal Time Frame: 2 to 5 times per week through discharge or goals met Assessment: Patient was seen for skilled Occupational Therapy services and tolerated session well this date. Patient was alert, oriented and able to follow commands . Patient performed lower body ADLs with min A to andree slipper socks. Patient performed bed mobility with supervision with HOB elevated and use of bed rails, transfers with contact A and ambulation with contact A using rolling walker.Pt has an awareness of how far he can ambulate taking into consideration his COPD limitations. He was SOB post ambulation this date with O2 sats at 90%. He wears the oxygen at bedtime only. Occupational Therapy AM-PAC score 21; Consider COPD swing bed services upon discharge when medically able if pt is not fully ready to return home . Patient would continue to benefit from inpatient OccupationalTherapy services to maximize functional independence and safety. Barriers to discharge from inpatient Occupational Therapy services include ADL/IADL performance, functional mobility, functional transfers, endurance, weakness, and safety. Treatment Plan: Energy Conservation, Bed mobility training, Functional Ambulation, Transfer training, ADL training and Endurance Anticipated Frequency (on eval): 2 to 5 times per week (03/21/23813) AM-PAC Help From Another Person Eating Meals: None (03/21/23813) Help From Another Person Taking Care of Personal Grooming: None (03/21/23813) Help From Another Person To Put On/Take Off Upper Body Clothing: None (03/21/23813) Help From Another Person To Put On/Take Off Lower Body Clothing: A little (03/21/23813) Help From Another Person Toileting: A little (03/21/23813) Help From Another Person Bathing: A little (03/21/23813) OT AM-PAC Score: 21 (03/21/23813) OT AM-PAC t-Scale Score: 44.27 (03/21/23813) HLM (Highest Level of Mobility) Goal: Level 6 walk 10 steps or more (03/21/23 0900) OT 0814 to 0829 * Ezra Buckner, PT - 03/20/2023 2:00 PM EDTAssociated Order(s): ADULT PHYSICAL THERAPY CONSULT IP GENERAL EVALUATION - Physical Therapy [facility] [address] [facility] [id number] Name: James Ibarra [address] Date: 03/20/2023 Time: 3:48 PM James Ibarra is a/an 82 year old male. Patient Status: Inpatient Insurance: Payor: [employer] [place] [employer]) MEDICARE ADVANTAGE Plan: [employer] PPO Product Type:*No Product type* Patient Seen: at bedside, nursing cleared patient for therapy Patient Identified By: Name, ID Band and Date Diagnosis: COPD exacerbation (03/20/23 1350) Status of treatment: Evaluation completed (03/20/23 135) Orders: PT evaluation and treatment (03/20/23 135) Weight Bearing Status: Weight bearing as tolerated (03/20/23 1350) Precautions: Falls;Safety (03/20/23 1350) Total Treatment Time--free text: 10 (03/20/23 135) Past Medical History: Past Medical History: Diagnosis Date (HFpEF) heart failure with preserved ejection fraction (HCC) AAA (abdominal aortic aneurysm) (HCC) Aortic stenosis BPH (benign prostatic hyperplasia) CAD (coronary artery disease) Chronic neck pain Convulsions (HCC) 04/2002 COPD (chronic obstructive pulmonary disease) (HCC) Dyslipidemia, goal to be determined 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 90% RCA, 90% LCx, both PTCA/Stent by [facility] Generalized osteoarthritis GERD (gastroesophageal reflux disease) History of CVA (cerebrovascular accident) Major depression, single episode Prostatitis, acute 2011 PUD (peptic ulcer disease) 2018 ruptured ulcer - needed clipped Tobacco use disorder Past Surgical History: Past Surgical History: Procedure Laterality Date CAROTID (INTERNAL) ARTERY CATHETHER PLACEMENT Bilateral 02/24/2023 CATHETER PLACEMENT INTERNAL CAROTID ARTERY performed by Bennett Quevedo MD at [place] [facility] [place] INTRACRANIAL ARTERIES CATH PLACEMENT Left 02/27/2023 CATHETER PLACEMENT EACH INTRACRANIAL BRANCH OF THE INTERNAL CAROTID OR VERTEBRAL ARTERIES performedby Bennett Quevedo MD at [place] [facility] [place] INTRACRANIAL INTRAVASCULAR STENT,INCL ANGIO Left 02/27/2023 TRANSCATHETER PLACEMENT OF INTRAVASCULAR STENTS, INTRACRANIAL performed by Bennett Quevedo MD at [place] [facility] [place] REVISE LUMBAR SPINE, ANTERIOR 1974 VERTEBRAL ARTERY CATHETER PLACEMENT Right 02/24/2023 CATHETER PLACEMENT VERTEBRAL ARTERY, performed by Bennett Quevedo MD at [place] [facility] [place] Subjective: James is seen in room and is awake, alert, motivated to participate. He reports that he is feeling better overall and notes some chronic back pain. He has used a walker at home and notes a h/o stroke that caused his R leg to be a little weaker than his L leg. Social History/Disposition Lives with: Friend (friend Wendy) (03/20/23 135) Assistance available: Yes (03/20/231349) Dwelling type: Single story home (03/20/231349) Entry steps: 4 (railing on both sides) (03/20/231349) Inside steps: None (03/20/231349) Bedroom location: 1st floor (03/20/231349) Bath location: 1st floor full bath (03/20/231349) Prior Level of Function Reported by: Patient (03/20/231349) Ambulation: Ambulatory with device (03/20/23 135) Ambulatory Device: Rolling walker (03/20/231349) Observations Consciousness: Alert (03/20/231349) Orientation: Oriented times 4 (03/20/231349) Psychosocial: Patient can converse in a social setting;Patient can communicate basic needs (03/20/231349) Sitting Posture: Kyphotic;Rounded shoulders;Forward head (03/20/231349) Standing Posture: Kyphotic;Forward head;Rounded shoulders (03/20/231349) Pain: Patient has report of chronic back pain but did not rate it nor complain of pain during treatment. Range of Motion Range of Motion: WFL (03/20/231349) Strength Assessment Strength Assessment: Deficits noted (03/20/231349) WNL, except: RLE (03/20/231349) RLE: Knee;4/5 (03/20/231349) P.T. Bed Mobility Roll (Right): Independent (03/20/23 135) Roll (Left): Independent (03/20/231349) Supine-Sit: Modified Independent (03/20/231349) Sit-Supine: Modified Independent (03/20/231349) Transfers Sit-Stand: Supervision (03/20/231349) Stand-Sit: Supervision (03/20/231349) W/C-Bed/Mat: Contact Guard (03/20/231349) Ambulation: Distance ambulated (feet): 75' with kyphotic posture and slow pace. No shortness of breath but mildfatigue at end of session. Assistive Device: Rolling walker Assist: Contact Guard Balance Sit (Static): Normal (03/20/231349) Sit (Dynamic): Good (03/20/231349) Stand (Static): Good (loss of balance with posterior release, but had stepping response to self-correct. Stable against sternal nudge and lateral nudges.) (03/20/231349) Stand (Dynamic): Fair (requires RW for dynamic balance) (03/20/231349) Patient and or Family Goal(s): to get well and to return home Patient Education Safety Awareness: Patient verbalizes insight of current deficits;Patient demonstrates carryover of insight during functional tasks;Patient can communicate basic needs (03/20/231349) Preferred learning method: Combination (03/20/231349) Barriers to learning: None (03/20/231349) Method of Education: Verbalized to patient (03/20/231349) Topic of Education: Safety with mobility and Use of assistive device Method of Education: Verbal discussion and explanation provided to patient: demonstrated the exercise and or task Treatment Provided: Evaluation Moderate Complexity 10 minutes - 92014: Patient was cooperative, pleasant, motivated and alert during treatment session. Moderate complexity evaluation performed and 1-2 personal factors or comorbidities were identified that will impact plan of care, including multiple steps at home, history of COPD and history of CVA. Patient presents with limitations in strength, transfers, gait, elevations, endurance and safety, which will impact plan of care. These limitationswill be addressed by the goals set for this patient. Alarm Status Patient positioned in: Bed (03/20/231349) With: Call grullon in reach (03/20/231349) Treatment Status: Treatment at bedside (03/20/231349) Goals: Demonstrate Bed Mobility with: Supine to Sit: modified independent (with device or slow) Sit to supine: modified independent (with device or slow) Demonstrate Transfers with: Sit to stand: modified independent (with device or slow) Bed to chair: modified independent (with device or slow) Demonstrate Ambulation: assistive device: rolling walker distance in feet: 150' or greater for functional household distances level of assistance on level surface: modified independent (with device or slow) Demonstrate Stairclimbing: Number of steps: 4, one railing and Level of Assistance: modified independent (with device or slow) Increase Safety: with mobility activities Time Frame: 3-5 treatment days Assessment: James is An 82 y.o. male who lives with a friend in a single story home with 4 entry steps. He has history of COPD and demonstrates deficits with ambulation, endurance and balance and would benefit from skilled PT services to work to improve his functional mobility and safety with ambulation and ensure safety with his ability to perform steps so that he can enter/exit his home safely. James may be a good candidate for post-acute swing bed services if he is not ready to return home when he is medically cleared. The level of care will be determined in collaboration with the patient, family/caregiver, and care team members. Deficits requiring P.T. treatment needs: Safety;Mobility;Balance;Endurance;Weakness (03/20/23 135) Equipment Needs: none identified at present Treatment Plan: Bed mobility training, Transfer training, Gait training, Elevation training and Other: endurance training. Anticipated Frequency (on eval): 3 to 5 times per week (03/20/23 1350) AM PAC Score with Stairs: 18 13:50 - 14:00 documented in this encounter Nursing Notes * Shelley Mayorga RN - 03/22/2023 12:48 PM EDT VIRTUAL RN [facility]-[address] [id number] Name: James Ibarra Location: [facility] MH2 ACU-236/01 Date: 03/22/2023 Time: 12:48 PM I completed the Discharge Navigator. The patient was in the hospital. I was in a private office space at a [facility] location. After connecting through [employer], the patient was identified by name and date of and / or wristband checked. 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 My office door was closed. No one else was in the room with me. Patient acknowledged consent and understanding of privacy and security of the Virtual Nurse visit. I presented the opportunity for thepatient or authorized legal canvas products sales representative to ask any questions regarding the visit today. The patient or authorized legal canvas products sales representative agreed to participate. Discharge order confirmed, discharge paperwork and education completed. Patient/spouse questions and concerns addressed. Patient adequate for discharge. Requested CHRIS Logan to clarify started date for prednisone with patient. Patient/spouse aware to call PCP on Friday for f/u appointment within 1 week. * Jaylin Ruano RN - 03/20/2023 8:15 PM EDT Pt coughing at intervals. C/O sore throat. Lung sounds wheezes throughout. Marked CAUSEY with exertion, some accessory muscles visibly moving with respirations. Xavi DANIEL notified, lozenges ordered. Instructed pt to cough thick sputum into cup for specimen. * Katie Zaragoza RN - 03/19/2023 11:00 PM EDT Dual Licensed Skin Assessment completed by Katie Sanchez RN and Blas Lorenzo LPN. The patient is/has a N/A Skin Breakdown (includes non blanchable erythema): No Sacrum is sore and pink/blanchable. Allevyn foam dressing applied and education patient about q2h repositioning. Right heel pink/blanchable/boggy. Heels elevated with pillow. Encouraged patient to keep heels off bed. Right hip ecchymosis as well as significant scattered bruising to BUE. documented in this encounter ED Notes * Denise Caldwell, DO - 03/19/2023 8:20 PM EDTAssociated Order(s): ECG Interpret; Imaging Interpretation HISTORY OF PRESENT ILLNESS James Ibarra is a 82 year old male who presents to the ED for evaluation of Short of Breath. The patient was seen at 03/19/232000. 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 Timing: Constant Progression: Worsening Chronicity: Recurrent (History of COPD and CHF) Context comment: Complains of post nasal drip which is making it hard for him to swallow and breathe Relieved by: Nothing Exacerbated by: Lying down. Ineffective treatments: None tried Associated symptoms: cough (Productive of whitish green sputum), sputum production and wheezing (Which has gotten worse today. ) Associated symptoms: no abdominal pain, no chest pain, no claudication, no diaphoresis, no fever, no headaches, no neck pain, no sore throat and no vomiting Associated symptoms comment: He has a history of COPD, CHF and wears 2 L oxygen at night to sleep, but today has been wearing oxygen most of the day without relief. Risk factors: recent surgery Risk factors comment: History of COPD, CHF, recent hospitalization after having a seizure. Had a stent placed in the ICA> Review of Systems Constitutional: Negative for appetite change, diaphoresis and fever. HENT: Positive for congestion (nasal), postnasal drip and trouble swallowing. Negative for sinus pressure, sinus pain and sore throat. Eyes: Negative for photophobia, pain and visual disturbance. Respiratory: Positive for cough (Productive of whitish green sputum), sputum production, shortness of breath and wheezing (Which has gotten worse today. ). Cardiovascular: Positive for leg swelling (States it is better than it had been). Negative for chest pain and claudication. Gastrointestinal: Negative for abdominal pain, constipation, diarrhea, nausea and vomiting. Genitourinary: Negative for decreased urine volume, difficulty urinating, dysuria, flank pain, frequency, hematuria and urgency. Musculoskeletal: Negative for neck pain. Skin: Negative for color change and wound. Allergic/Immunologic: Positive for environmental allergies. Neurological: Negative for dizziness, weakness, light-headedness and headaches. Psychiatric/Behavioral: Negative for confusion. The patient's allergies, past history, and medications were reviewed. PHYSICAL EXAM Initial Vitals (see all): BP 152/76 | Pulse 92 | Resp 24 | Temp 98.6 | O2 97 %, Room Air, None | Weight 43.09 kg | Height 170.2 cm | BMI 14.88 kg/m2 Initial Pain Assessment (see all): 7 (severe pain)/10, Sharp, location: Hips ([facility] Adult Scale 0-10) Physical Exam Vitals and nursing note reviewed. Constitutional: General: He is not in acute distress. Appearance: He is well-developed and normal weight. He is not ill-appearing. HENT: Head: Normocephalic and atraumatic. Mouth/Throat: Mouth: Mucous membranes are moist. Eyes: Extraocular Movements: Extraocular movements intact. Pupils: Pupils are equal, round, and reactive to light. Neck: Vascular: No JVD. Cardiovascular: Rate and Rhythm: Normal rate and regular rhythm. Heart sounds: No murmur heard. Pulmonary: Breath sounds: Examination of the right-upper field reveals wheezing. Examination of the left-upperfield reveals wheezing. Examination of the right- middle field reveals wheezing. Examination of the left-middle field reveals wheezing. Examination of the right-lower field reveals wheezing. Examination of the left-lower field reveals wheezing. Decreased breath sounds and wheezing present. Chest: Chest wall: No tenderness. Abdominal: Palpations: Abdomen is soft. There is no hepatomegaly or splenomegaly. Musculoskeletal: Cervical back: Normal range of motion and neck supple. Right lower leg: Edema present. Left lower leg: Edema present. Comments: Bilateral pedal edema that extends to just above ankle bilaterally Skin: General: Skin is warm. Capillary Refill: Capillary refill takes less than 2 seconds. Neurological: General: No focal deficit present. Mental Status: He is alert and oriented to person, place, and time. Cranial Nerves: No cranial nerve deficit. Motor: No weakness. Psychiatric: Mood and Affect: Mood normal. Behavior: Behavior normal. PROCEDURES AND TREATMENTS ED Orders | ED Results Imaging Interpretation Date/Time: 03/19/2023 8:53 PM Performed by: Denise Caldwell DO Authorized by: Denise Caldwell DO Image type: Chest Number of views: 1 Views: AP Lungs: comment: Streaking present right lower lobe when compared to 02/21/23. This could represent infiltrate vs atelectasis vs edema Location: Right Mediastinum: Normal Negative findings: no cardiomegaly, no mass, no pneumomediastinum/pericardium and no widening Bones: Normal Negative findings: no clavicle fracture, no rib(s) fracture, no scapula fracture and no shoulder fracture Impression: Comments: Question infiltrate vs atelectasis vs edema right lower lobe when compared to 02/21/23 ECG Interpret Date/Time: 03/19/2023 9:14 PM Performed by: Denise Caldwell DO Authorized by: Denise Caldwell DO Previous ECG: Previous ECG: Compared to current Comparison ECG info: 02/22/23 Similarity: No change Interpretation: Interpretation: abnormal Rate: ECG rate: 83 ECG rate assessment: normal Rhythm: Rhythm comment: Atrial sensed ventricular paced rhythm. Ectopy: Ectopy: none QRS: QRS axis: Normal QRS intervals: Normal Conduction: Conduction: normal ST segments: ST segments: Normal T waves: T waves: normal Comments: No change when compared to previous MEDICAL DECISION MAKING Nursing notes and vital signs were reviewed. ED Course as of 03/19/23 225FriMar 19, [id number] Lactate, Whole Blood with Reflex if Abnormal Normal pH. No evidence of CO2 retention. Mild decreased oxygen. [CB] 2117 Blood Gas, Venous(!) Normal [CB] 2118 pCO2, Venous: 57.7 [CB] 2128 CBC with WBC Differential(!) NO leukocytosis present. Anemia present, but hemoglobin and hematocrit improved when compared to previous lab work. [CB] 2135 Troponin T, High Sensitivity(!) Elevated, but improved when compared 3 weeks ago. This could be patient's baseline. Will continue to trend. [CB] 2135 Comprehensive Metabolic Panel(!) Renal function is unremarkable. Mild acute hyponatremia and hypochloremia. This could be from poor PO intake vs mild dehydration. [CB] 2136 XR Chest 1 View No evidence of acute cardiopulmonary disease. Mild changes of chronic obstructive pulmonary disease. [CB] 2139 BNP, NT-PRO Normal [CB] 2143 Lung sounds improved after the second albuterol nebulizer. Still complains of chest tightness.Still with scattered inspiratory wheezes now heard on the right side greater than the left [CB] 2224 RespiratoryPathogen Panel,PCR Negative [CB] 2249 Troponin T, High Sensitivity(!) Stable [CB] ED Course User Index [CB] Denise Caldwell DO Differential Diagnoses Based on my history, physical exam, and evaluation, the differential includes, but is not limited, to the following diagnoses: acute coronary syndrome, bronchitis, CHF, COPD, pneumonia, respiratory failure and viral syndrome. Patient continues to complain of chest tightness with shortness of breath after albuterol nebulizertimes 2 administered in the ER. He is allergic to tiotropium so unable to give ipratropium. Solumedrol 40 mg IV administered. Respiratory PCR is negative for viral illness. No acute cardiopulmonary process identified on chest x-ray. BNP is normal making acute CHF unlikely. Hospitalist consulted for admission to treat acute COPD exacerbation. Hospitalist consulted and agrees to accept patient to telemetry observation. Amount and/or Complexity of Data Reviewed Labs: ordered. Decision-making details documented in ED Course. Radiology: ordered and independent interpretation performed. Decision-making details documented in ED Course. ECG/medicine tests: ordered and independent interpretation performed. Risk Prescription drug management. Decision regarding hospitalization. Clinical Impressions SOB (shortness of breath) Acute exacerbation of chronic obstructive pulmonary disease (COPD) (HCC) COPD with acute exacerbation (HCC) Disposition Admitted. I discussed the management of this patient with the admitting provider and I made a decision to admit the patient. Admission Order Ordered Status . 03/19/232224 Assign to Observation ONCE Acknowledged 03/19/232002 ONCE Canceled Denise Caldwell ATTENDING ATTESTATION I have seen and examined this patient on the 03/19/2023 visit. I have discussed the patient's management with the provider listed above and agree with the note, findings, and plan of care. Denise Gunn DO * Rosette Heredia RN - 03/19/2023 8:03 PM EDT Patient sts that he believes that he has a sinus infection. Patient sts that he has had sinus infections in the past. He sts that he has a lot of drainage down the back of his throat. Patient has bilateral lower edema swelling that he sts started after having a stent placed in his let carotid 2 weeks ago. Patient has audible inspiratory wheeze during triage. Patient also complains of increased SOB documented in this encounter Miscellaneous Notes * Ancillary Progress Note - Glendy Gaviria RN - 03/22/2023 11:20 AM EDT ADULT CARE MANAGEMENT - DISCHARGE NOTE [facility]-[address] [address] Name: James Ibarra [address] Date: 03/22/2023 Time: 11:20 AM The following coordination of care and discharge plan has been coordinated with the care team, patient, family and/or caregiver according to the patients needs and preferences. Discharge Discharge Insurance considerations verified and completed: Yes (03/22/231116) Second Notice Important Message from Medicare delivered: Yes (03/22/231116) Date Delivered: 03/22/23 (03/22/231116) Retain copy in EHR: Yes (03/22/231116) Was Caregiver/Family contacted regarding discharge: Yes (03/22/231116) Discharge Transportation: Family/Friends drive (03/22/231116) Date of scheduled discharge transportation: 03/22/23 (03/22/23 111) Time of scheduled discharge transportation: 1400 (03/22/231116) Patient declined post-hospital transition of care recommendation: Senior Care Facility (03/22/231116) Provider to Provider handoff completed: N/A (03/22/231116) Final D/C Plan - Complete at time of D/C Final Discharge Plan (Complete only at time of Discharge): Home - Self Care (07/29/23 1117) Per discussion with Hospitalist, pt was medically cleared for DC to home on this date. Per discussion with the Tx Team, there are no needs for Care Management to arrange at time of DC. Resume home physical therapy and occupational therapy with Mikel Garcia from [place]. Resume home oxygen provided by [employer] as instructed. Resume use of your rolling walker. Pt is aware of the DC plans and in agreement with same. Ship [facility]her will continue to follow for any additional DC needs not yet identified. * Ancillary Progress Note - Glendy Gaviria RN - 03/22/2023 11:13 AM EDT Care Management Discharge Planning Note: Ship Washer spoke with pt and spouse about Tx Team's recommendations for SNF/swing placement - pt refuses - "want to go home." Ship Washer spoke with pt about HC for PT/OT. Pt and spouse state pt already receives PT/OT in the home from Mikel Garcia from a company (pt and sps can't remember name) in [place]. They states Mikel advised them to give him a call as soon as pt gets out of hospital and hewill resume services. Hospitalist aware. * Pt Handout (on AVS) - Shelley Mayorga RN - 03/22/2023 8:30 AM EDT Images from the original note were not included. 12365 Tips to Control Acid Reflux To control acid reflux, you?ll need to make some basic diet and lifestyle changes. The simple stepsoutlined below may be all you?ll need to ease discomfort. Watch what you eat Don't eat fatty or spicy foods. Eat fewer acidic foods. These include foods with citrus and tomatoes. These can make your symptoms worse. Limit drinks that are fizzy or have alcohol or caffeine. These all increase acid reflux. Limit foods and drinks with chocolate, peppermint, or spearmint. These can make acid reflux worse in some people. Watch when you eat Don't lie down for 3 hours after eating. Don't snack before going to bed. Tilt your upper body Raise your upper body by 4 to 6 inches (10 to 15 cm) when you?re lying down. This helps limit reflux. Put blocks under the head of your bed frame or a wedge under your mattress to raise it. Other changes Lose weight, if you need to. Don?t exercise near bedtime. Don't wear tight-fitting clothes. Limit your use of aspirin and ibuprofen. Stop smoking, if you smoke. Last Reviewed Date: 08/25/202119991646-0685 [employer]. All rights reserved. This information is not intended as a substitute for professional medical care. Always follow your healthcare professional's instructions. * Pt Handout (on AVS) - Shelley Mayorga RN - 03/22/2023 8:29 AM EDT Images from the original note were not included. 97548 Coping with Heart Failure It?s normal to feel sad or down at times when you?re living with heart failure. Some medicines can also affect your mood. Following your treatment plan may seem difficult at times. If you feel overwhelmed, just focus on one day at a time. Don?t be afraid to ask others for help when you need it. Ways to feel better Try not to withdraw from family and friends, even if you're finding it hard to talk to them. They can still be a good source of support. To feel better, you can also: Spend time doing things you enjoy. This may include taking part in a favorite hobby, meditating,praying, or spending time with people you care about. Find activities that make you happy. And makethose a priority. Share what you learn about heart failure with the people in your life. Invite family members along when you visit your healthcare provider. This will help you feel supported. And it will help you discuss the care plan you've agreed upon with your provider. Think about joining a support group for people with heart failure. It may be easier to talk to people who know firsthand what you?re going through. They can offer advice and share stories. You maywant to ask loved ones to join you for a meeting. Asking for help Having heart failure doesn?t mean that you have to feel bad all the time. Think about talking to your healthcare provider or a therapist if: You feel worthless or helpless, or are thinking about suicide. These are warning signs of depression. Treatment can help you feel better. When depression is under control, your overall health may also improve. You feel anxious about what will happen to your loved ones if your health gets worse. Taking care of legal arrangements, such as a living will and durable power of commonwealth attorney, can help you feel moresecure about the future. You feel stressed or alone. Social support helps reduce stress and helps you stick with your healthy lifestyle changes. Without social support, you may end up back in the hospital. Last Reviewed Date: 05/25/202119995759-3914 [employer]. All rights reserved. This information is not intended as a substitute for professional medical care. Always follow your healthcare professional's instructions. * Pt Handout (on AVS) - Shelley Mayorga RN - 03/22/2023 8:29 AM EDT 74205 COPD and Heart Disease Some people have more than 1 health problem at one time. If you have emphysema or chronic bronchitis, 2 main conditions of COPD, you may also have heart disease. There is no direct link between COPD and heart disease. But the 2 conditions may affect each other. People with COPD or heart disease often have trouble breathing during normal tasks or physical activities. With COPD (chronic obstructive pulmonary disease), the lungs and airways are damaged. The damage ismost often caused by breathing in irritants over a long period of time. Your airways can become blocked with mucus or collapse. Because of this, air doesn?t flow normally through the airways in your lungs. This can cause shortness of breath or trouble breathing. Heart disease is any condition that affects how the heart works or the heart rhythm, or cause damage to the heart muscle, structure, valves, or vessels. Coronary artery disease (CAD) is the most common type of heart disease. It occurs when an artery that brings blood to the heart becomes blocked ornarrowed. If the artery is blocked, it can lead to a heart attack. Heart disease also includes other conditions. These include heart valve disease, heart failure, and heart rhythm problems (arrhythmias). How does COPD raise your risk for heart disease? Cigarette smoking is the main cause of COPD. Smokers are 2 to 4 times more likely to have heart disease or stroke. Even secondhand smoke raises your risk for heart disease. Not everyone with COPD will get heart disease. But you are more likely to raise your risk for it when you have COPD. Most people who develop COPD were smokers. Smoking makes your blood sticky. This can cause your blood to clot. When your blood clots, blood flow to the heart and brain is blocked. It also raises yourblood pressure. This raises your risk for heart disease. Smoking harms your lungs. This affects the delivery of oxygen to the body. COPD can cause inflammation in the body. This raises the risk of having coronary artery disease (CAD). COPD lowers the oxygen level in the blood. So your heart muscle may not get enough blood and oxygen. This puts extra strain on your heart. It can cause heart disease. Symptoms of heart disease Some heart disease symptoms are the same as COPD symptoms. But there are many different heart disease symptoms to look out for. If you are being treated for COPD and have any of the symptoms below, call right away: Trouble breathing or talking Lips or fingernails turn blue or mcgraw Symptoms gets worse and your medicine or treatments are not working Dizziness, confusion, or feeling light-headed Very fast heartbeat The symptoms below may be a sign of heart disease. Call your healthcare provider right away if you have any of these: Shortness of breath that gets worse Sudden weight gain Coughing more than normal Tiredness and weakness that get worse Warning signs of a heart attack A heart attack is a major health event. It happens when blood flow to part of the heart is blocked.Many of the heart attack symptoms are very much like heart disease symptoms. They may start suddenly. Call right away if you have any of these warning signs: Chest pain or discomfort that lasts for more than a few minutes Pain or discomfort in one or both arms, the back, neck, jaw, or stomach Shortness of breath Weakness or numbness in arms and legs Dizziness or feeling lightheaded Feeling of sudden tiredness and weakness Breaking out in a cold sweat Vomiting or upset stomach, heartburn, indigestion, or belly pain Treatment for heart disease Heart disease can be an ongoing health problem. But treatment will help you feel better. Your healthcare provider will work with you to make a treatment plan. Your treatment plan may include: Quitting smoking. This is the most important risk factor you can change. If you smoke, it's never too late to help your heart. Ask your provider about nicotine replacement products and smoking cessation support. Quitting smoking is the single biggest way to reduce your risk of heart disease. Quitting can help make your symptoms better. Taking medicine. Medicines help treat the symptoms of heart disease. They can also lower the chances that you will have serious health issues and have to go to the hospital. Take your medicines every day as directed. Joining a cardiac rehab program. Cardiac rehab is a program that gives you the skills you need to manage both COPD and heart disease in your daily life. Ask your provider if this program is available for you. Last Reviewed Date: 09/25/202119998400-5018 [employer]. All rights reserved. This information is not intended as a substitute for professional medical care. Always follow your healthcare professional's instructions. * Care Plan - Ricarda Mercer RN - 03/22/2023 4:54 AM EDT Clinical Goal(s): pt will remain wu from falls this shift (03/21/23 2300) Possible barriers to meeting goal(s)/advancing plan of care: weakness and impaired mobility Stability of the patient: Moderately stable - low risk of patient condition declining or worsening Summary regarding today's goal(s): Met: Recommendations: continue fall precautions * Respiratory Progress Note - Blaze Bermudez RRT - 03/21/2023 9:00 PM EDT PDP RE-EVALUATION NOTE - Respiratory Care Services [address] [address] Name: James Ibarra [address] Date: 03/21/2023 Time: 9:01 PM Patient Driven Protocol Summary: Re-evaluation . This Treatment Plan and medications will be reviewed by the Primary Care Team for any contraindications. Respiratory Care Treatment Plan Aerosol Therapy Treatment:: Hand Held Nebulizer Tx QID+ (QID and PRN) with Albuterol Sulfate: Unit dose 0.083%. to reduce work of breathing and improve pulmonary gas exchange. Additional Aerosolized Treatments: Inhaler(s) QDAY with Breo Ellipta (Fluticasone furoate 200 mcg and Vilanterol 25 mcg inhalation powder) / 1 inhalation . to suppress bronchial inflammation and edema by the use of systemic steroid sparing therapy. Secretion Management Treatment: Flutter TherapyQID to enhance mobilization of secretions and prevent or treat alveolar consolidation and atelectasis. The patient will be re-evaluated: within 48 hours. The Triage Level is: (Assessment Score = 6 -10) Level 4. Triage Level Definitions: Level 1 Severe Respiratory/Airway Compromise Level 2 Moderate Respiratory/Airway Compromise or high risk for pulmonary complications Level 3 Mild Respiratory/Airway Compromise or moderate risk for pulmonary complications Level 4 Episodic Respiratory/Airway Compromise or low risk for pulmonary complications Level 5 No Respiratory/Airway Compromise Triage 1 Triage 2 Triage 3 Triage 4 Triage 5 greater than 20 16 - 20 11 - 15 6 - 10 0 - 5 Medical Record Assessment Clinical Findings Pulmonary Status: 3 - Pulm Impairment (acute or chronic) w/o exacerbation, or 1 - 2 rib fractures Surgical Status: 0 - No Surgical History Chest X-Ray: 1 - Chronic Changes or CHF Assessment Score: 4 Patient Assessment Clinical Findings Respiratory Pattern: 0 - RR 12 - 20; Patient only gets breathless with strenuous exercise. Breath Sounds: 2 - Diminished bilaterally Cough Effectiveness: 0 - Strong non-productive Sputum Production 0 - No sputum production Level of Activity: 1 - Ambulatory with assist O2 needed to keep SpO2 greater than or equal to 92%: 0 - Room Air Assessment Score: 3 Total Assessment Score: 7 Breath Sounds: Inspiratory and expiratory diminished bilaterally.. Cough and Sputum: An effective cough produced no sputum... Vital Signs: Resp: 18 (03/21/231999) Pulse: 75 (03/21/231999) Temp: 36.7 C (98.1 F) (03/21/231999) BP: 105/60 (03/21/231599) SpO2: 96 % (03/21/231999) Primary Service: Hospitalists. Admitting Diagnosis: SIRS (systemic inflammatory response syndrome) ([facility]) [R65.10] COPD with acute exacerbation ([facility]) [J44.1] Pulmonary Diagnosis: COPD. * Care Plan - Herber Brown LPN - 03/21/2023 5:01 PM EDT Clinical Goal(s): Pt will remain free of falls and injury this shift. (03/21/23699) Possible barriers to meeting goal(s)/advancing plan of care: weakness, COPD exacerbation Stability of the patient: Moderately stable - low risk of patient condition declining or worsening Summary regarding today's goal(s): Met: no falls or injury this shift. Recommendations: continue with current POC. 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 * Ancillary Progress Note - MAIKOL Landaverde - 03/21/2023 3:24 PM EDT Ship Washer met with pt and pts SOWendy in order to discuss DC planning. Per discussion with the Tx Team, pt would benefit from a Swing Bed LOC upon DC of which both pt andpts SO have declined. Ship Washer will update the Tx Team. * Ancillary Progress Note - Ezra Buckner, PT - 03/21/2023 11:15 AM EDT PROGRESS NOTE - Physical Therapy [facility] [address] Name: James Ibarra Location: [place] [address] ACU-236/01 Date: 03/21/2023 Time: 11:44 AM James Ibarra is a/an 82 year old male. Patient Status: Inpatient Insurance: Payor: DANYA DANIEL ([employer]) MEDICARE ADVANTAGE Plan: [employer] PPO Product Type:*No Product type* Patient Seen: at bedside, nursing cleared patient for therapy Patient Identified By: Name, ID Band and Date Diagnosis: COPD exacerbation (03/21/231099) Status of treatment: Evaluation completed (03/21/231099) Orders: PT evaluation and treatment (03/21/231099) Weight Bearing Status: Weight bearing as tolerated (03/21/231099) Precautions: Falls;Safety (03/21/231099) Total Treatment Time--free text: 15 (03/21/231099) Subjective: James was found resting in bed upon entering the room today. He was receptive and willing to participate in treatment. Pain: No complaints of pain P.T. Bed Mobility Supine-Sit: Modified Independent (03/21/231099) Sit-Supine: Modified Independent (03/21/231099) Transfers Sit-Stand: Supervision (03/21/231099) Stand-Sit: Supervision (03/21/231099) W/C-Bed/Mat: Contact Guard (03/21/231099) Ambulation: Distance ambulated (feet): 2 x 80' kyphotic posture, short strides Assistive Device: Rolling walker Assist: Contact Guard Stair Training: Number of stairs: 4 Number of handrails: 2 Level of Assistance: Contact Guard for safety purposes only Patient and or Family Goal(s): to get well and to return home Topic of Education: Safety with mobility, Use of assistive device and Stair training Method of Education: Verbal discussion and explanation provided to patient: verbalized understanding and or agreement of this information Treatment Provided: Therapeutic Activities 3 minutes: bed mobility training transfer training Gait Training 12 minutes: gait training with rolling walker stair training Alarm Status Patient positioned in: Bed (03/21/231099) With: Call grullon in reach (03/21/231099) Patient Education Safety Awareness: Patient verbalizes insight of current deficits;Patient demonstrates carryover of insight during functional tasks;Patient can communicate basic needs (03/21/231099) Preferred learning method: Combination (03/21/231099) Barriers to learning: None (03/21/231099) Method of Education: Verbalized to patient (03/21/231099) Assessment: James was able to safely ambulate a total of 160' today utilizing the RW with SPO2 >90% on room air throughout. During ambulation he demonstrated a reciprocal step pattern and displayed no loss of balance. James was also able to perform 4 steps in a step-to pattern ascending and descending with no loss of balance. While he is in the hospital James would benefit from continuedskilled therapy to improve his strength, endurance and functional mobility. James is at a currentfunctional level that he should be able to safely return to his familiar home environment. Upon inpatient d/c James would benefit from post-acute skilled therapy through either outpatient or home he alth to maximize his strength and functional ability at home. Deficits requiring P.T. treatment needs: Safety;Mobility;Balance;Endurance;Weakness (03/21/231099) Plan: Continue with current treatment plan established on evaluation. AM PAC Score with Stairs: [phone] * Care Plan - Jaylin Ruano RN - 03/21/2023 5:55 AM EDT Clinical Goal(s): free of falls (03/20/231999) Possible barriers to meeting goal(s)/advancing plan of care: weakness, not pushing call grullon beforegetting oob Stability of the patient: Moderately stable - low risk of patient condition declining or worsening Summary regarding today's goal(s): Not Met: pt fell in bathroom didn't push call grullon before getting oob, reports he "slid to the floor from toilet due to losing balance" Recommendations: monitor neuro q 2hrs, reinforce pushing call grullon before getting oob, bed alarm on, call grullon in reach * Care Plan - Daniel Alvarez RN - 03/20/2023 3:07 PM EDT Clinical Goal(s): Patient will remain free of falls/injuries this shift. (03/20/23699) Possible barriers to meeting goal(s)/advancing plan of care: COPD Exacerbation Stability of the patient: Moderately stable - low risk of patient condition declining or worsening Summary regarding today's goal(s): Met: Goal Met. Patient remained free of falls/injuries this shift. Recommendations: Continue Safety Measures * Ancillary Progress Note - MAIKOL Landaverde - 03/20/2023 9:02 AM EDT CARE MANAGEMENT - ADULT INITIAL SCREENING [place] [id number] [facility] [address] Name: James Ibarra Location: [facility] ACU-236/01 Date: 03/20/2023 Time: 9:02 AM Patient Class: Inpatient (03/20/23854) Discussed patient with the interdisciplinary care team. This Supervisor Photocomposition performed a chart review and met with patient at bedside to complete admission screen and assessed needs for transition planning. The healthcare representative role and services were explained and emotional support was provided. 30 Day Readmission Screening 30 Day Readmission Readmission within 30 days?: Yes, the previous hospital stay was at [facility] (03/20/23854) Where were you readmitted from?: Home with home care (including Assisted Living, Jail, Personal Assisted) (03/20/23854) Did you see your doctor before coming back to the hospital?: Yes, includes readmissions from SNF, LTACH and Acute Rehab (03/20/23854) Did you feel ready when you left the hospital?: Yes (03/20/23854) Did you have any difficulty obtaining your prescriptions/medicines when you left the hospital?: No (03/20/23854) Did you take ALL of your medicines, as directed?: Yes (03/20/23854) Chief Complaint: Short of Breath Pt describes having an intact family support system. Pt resides independently with his significant other Wendy Regalado. Pt's medical decision maker has been identified as being Wendy Regalado, Pt significant other, who is involved with the DC planning process. Per review of the medical record, pt has no admitting MH Dx. Pt denies any current or prior Hx of substance abuse. Pt reports being able to read and write. Pt denies difficulty managing own medications. Pt's primary pharmacy has been identified as being [facility] in [place]. Pt denies difficulty completing ADLs prior to admission. Prior Living Arrangements What was your living situation prior to admission/observation?: With Spouse (03/20/2332) Do you have any children, pets, or other dependents that you are currently caring for?: Yes (comment) (dog) (03/20/23854) Living Quarters: House (03/20/23854) How many stories is the dwelling?: One Story (03/20/23854) Number of steps to enter living quarters:: Level (03/20/23854) Location of bathroom(s): All floors or Single story dwelling (03/20/23854) Do you have serious difficulty walking or climbing stairs? (5 years old or older): No (03/20/2332) History of falling: Yes (03/20/23116) Prior Level of Functioning Describe the patient's ability prior to admission/observation to perform ADLs: Performs independently (03/20/2332) Describe the patient's mobility status prior to admission: Patient requires assistance with ambulation (03/20/23854) Patient uses assistive device: Yes (03/20/2332) If yes, choose:: Walker (03/20/2332) Caregiver Information Patient Contacts Name Relation Home Work WENDY Reed Significant Other [phone] Risk Stratification/Psychosocial/Care Gaps Risk Stratification Medical and Behavioral Health Concerns Identified: Chronic disease;Multiple comorbidities;Behavioral Health Diagnosis (MH/MR) (03/20/23854) Psycho Social/Care Gaps concerns identified upon admission:: Adjustment to illness/injury () Barriers unidentified in Psychosocial - Describe in comment: N/A (03/20/23854) Accessed Neighborly to connect patients to social care resources: No (03/20/23854) OBRA or OPTIONS needed for placement: No (03/20/23854) Readmission Risk Score: 29.61 (03/20/23800) AM-PAC Score With Stairs : 18 (03/20/23118) Prior to Admission Services Services Prior to Admission BIOMEDICAL ENGINEERING SUPERVISOR Services (Services received within the last 30 days with exception, Psych within last two years): Home Health;Durable Medical Equipment (03/20/23854) List All Provider/Service Name: Javier (03/20/23854) Agency contacted: Yes (03/20/23854) Spoke with - Comment: Kirstie (03/20/23854) BIOMEDICAL ENGINEERING SUPERVISOR Durable Medical Equipment (DME) in home: Walker Rolling;Oxygen (name) - Comment (03/20/23854) DME Name: [facility] (03/20/23854) [place] Dept[employer] Aging (PDA) Waiver Program: N/A (03/20/23854) BIOMEDICAL ENGINEERING SUPERVISOR Transportation (Services received within the last 30 days): Family/Friends Personal Vehicle (03/20/23854) Outpatient Supervisor Photocomposition: no, not applicable Patient/Family Expectations: Return home. Anticipated Disposition Plan & Post Acute Needs Anticipated Plan Anticipated D/C disposition per abbreviated screening: Post hospitalization needs identified, continue to monitor for transition planning (03/20/23854) Anticipated Post-Acute Care needs identified: Home Care Services (03/20/23854) Tentative DC plan: Once deemed Medically appropriate, it's anticipated pt will DC home pending continued Medical workup/evaluations and findings. Pt reports to using a RW and is anticipated to resume the same upon discharge. Pt reports to using 2L of oxygen at HS provided by [facility] and is anticipated to resume the same upon discharge. Pt may benefit from Swing Bed vs HC for SN/PT/OT upon DC pending Tx Team recommended need for same. The Tx Team will meet daily in order to discuss DC planning/needs. Ship Washer will continue to follow for any identified needs and/or concerns which may arise. For further screening information, please refer to the Care Management flow document. * ED Senior Procurement Specialist Note - ALDO Fitzgerald - 03/20/2023 12:18 AM EDT Hospitalist ( Xavi ) DC 23:00 Troponin * Ancillary Progress Note - Carmen Hyatt RRT - 03/19/2023 11:01 PM EDT PATIENT DRIVEN PROTOCOL - Respiratory Care Services [facility] [id number] [facility] [address] Name: James Ibarra Location: [facility] MH2 ACU-236/ Date: 03/19/2023 Time: 11:01 PM Patient Driven Protocol Summary: Initial evaluation performed. This Treatment Plan and medications will be reviewed by the Primary Care Team for any contraindications. Respiratory Care Treatment Plan Aerosol Therapy Treatment:: Hand Held Nebulizer Tx QID+ (QID and PRN) with Albuterol Sulfate: Unit dose 0.083%. to reduce work of breathing and improve pulmonary gas exchange. Additional Aerosolized Treatments: Inhaler(s) QDAY with Breo Ellipta (Fluticasone furoate 200 mcg and Vilanterol 25 mcg inhalation powder) / 1 inhalation . to suppress bronchial inflammation and edema by the use of systemic steroid sparing therapy. . Secretion Management Treatment: Flutter TherapyQID to enhance mobilization of secretions. . The patient will be re-evaluated: within 48 hours. The Triage Level is: (Assessment Score = 6 -10) Level 4. Triage Level Definitions: Level 1 Severe Respiratory/Airway Compromise Level 2 Moderate Respiratory/Airway Compromise or high risk for pulmonary complications Level 3 Mild Respiratory/Airway Compromise or moderate risk for pulmonary complications Level 4 Episodic Respiratory/Airway Compromise or low risk for pulmonary complications Level 5 No Respiratory/Airway Compromise Triage 1 Triage 2 Triage 3 Triage 4 Triage 5 greater than 20 16 - 20 11 - 15 6 - 10 0 - 5 Medical Record Assessment Clinical Findings Pulmonary Status: 3 - Pulm Impairment (acute or chronic) w/o exacerbation, or 1 - 2 rib fractures Surgical Status: 0 - No Surgical History Chest X-Ray: 1 - Chronic Changes or CHF Assessment Score: 4 Patient Assessment Clinical Findings Respiratory Pattern: 1 - RR 21 - 25; Patient gets short of breath when hurrying on level ground or walking up a slight hill. Breath Sounds: 3 - Crackles, mild wheezes, coarse bronchial, upper airway noises Cough Effectiveness: 0 - Strong non-productive Sputum Production: 0 - No sputum production Level of Activity: 1 - Ambulatory with assist O2 needed to keep SpO2 greater than or equal to 92%: 0 - Room Air Assessment Score: 5 Total Assessment Score: 9 Breath Sounds: Inspiratory and expiratory crackles in left base and diminished with wheezes bilaterally.. Cough and Sputum: A harsh cough produced no sputum... CXR:IMPRESSION: 1. No evidence of acute cardiopulmonary disease. 2. Mild changes of chronic obstructive pulmonary disease. Vital Signs: Resp: 24 (03/19/232154) Pulse: 88 (03/19/232154) Temp: 37 C (98.6 F) (03/19/232006) BP: 140/75 (03/19/232154) SpO2: 99 % (03/19/232154) Primary Service: Hospitalists. Admitting Diagnosis: SIRS (systemic inflammatory response syndrome) ([facility]) [R65.10] COPD with acute exacerbation ([facility]) [J44.1] Pulmonary Diagnosis: COPD. Prescriptions/Home Medications/Durable Medical Equipment: Patient uses Albuterol Mdi And Symbicort Mdi at home,Sees Pulmonary @ [facility]. Recommended New home medications/durable medical equipment/outpatient pulmonary/sleep referral Pulmonary follow up. * ED Senior Procurement Specialist Note - Ezra Harden RN - 03/19/2023 10:38 PM EDT Report to Rodolfo MICHAEL and Jose Juan on the floor at bedside * ED Senior Procurement Specialist Note - Ezra Harden RN - 03/19/2023 10:33 PM EDT Taking pt to floor documented in this encounter Plan of Treatment Upcoming Encounters Date Type Specialty Care Team Description 03/24/2023 Pharmacy Neurology Mandie, Pharmacist Neurology [address] [place] [address] 04/01/2023 Office Visit Neurological Surgery Marleny Coleman PA-C [address] [place] [address] Pending Results Name Type Priority Associated Diagnoses Date /Time CULTURE, BLOOD Lab Routine 03/19/2023 9:01 PM EDT CULTURE, BLOOD Lab Routine 03/19/2023 8:45 PM EDT Scheduled Orders Name Type Priority Associated Diagnoses Orde r Schedule EKG EKG STAT SOB (shortness of breath) One Time for 1 Occurrences starting 03/19/2023 until 03/19/2023 Scheduled Referrals Name Type Priority Associated Diagnoses Orde r Schedule OCCUPATIONAL THERAPY REFERRAL OP Referral Within 3 days (urgent) Ambulatory dysfunction Ordered: 03/22/2023 PHYSICAL THERAPY REFERRAL OP Referral Within 3 days (urgent) Ambulatory dysfunction Ordered: 03/22/2023 Health Maintenance Due Date Last Done Comments DISCUSS TOBACCO CESSATION (REFER TO SMARTSET #[id number]) 1940 Depression Screening, Annual for Pts 12 [...] this encounter Medical Devices Implanted Type Area Cadmium Plater Device Identifier Shelf Expiration Date Model / Serial / Lot Stent 7x40 Precise [id number] - [id number] Implanted:Qty : 1 on 02/27/2023 by Bennett Quevedo MD [place] [facility] [place]: [place] [facility] [place] [id number] 12/23/2023 [id number] / / [id number] documented as of this encounter Procedures Procedure Name Priority Date/Time Associated Diagnosis Comments GLUCOSE METER, POINT OF CARE PORTIA 03/21/2023 11:50 AM EDT CULTURE, RESPIRATORY, LOWER, AEROBIC Routine 03/21/2023 10:23 AM EDT TROPONIN T, HIGH SENSITIVITY Routine 03/20/2023 5:25 AM EDT COMPREHENSIVE METABOLIC PANEL Routine 03/20/2023 5:25 AM EDT PT INR Routine 03/20/2023 5:25 AM EDT CBC Routine 03/20/2023 5:25 AM EDT MAGNESIUM Routine 03/20/2023 5:25 AM EDT TROPONIN T, HIGH SENSITIVITY STAT 03/19/2023 10:05 PM EDT PHOSPHORUS Add-on 03/19/2023 10:05 PM EDT MAGNESIUM Add-on 03/19/2023 10:05 PM EDT ECG INTERPRET Routine 03/19/2023 9:14 PM EDT DIFFERENTIAL, AUTOMATED STAT 03/19/20 9:01 PM EDT TROPONIN T, HIGH SENSITIVITY STAT 03/19/2023 9:01 PM EDT BNP (NT-PROBNP) STAT 03/19/2023 9:01 PM EDT COMPREHENSIVE METABOLIC PANEL STAT 03/19/2023 9:01 PM EDT CBC WITH WBC DIFFERENTIAL STAT 03/19/2023 9:01 PM EDT CULTURE, BLOOD Routine 03/19/2023 9:01 PM EDT CBC STAT 03/19/2023 9:01 PM EDT DIFFERENTIAL, TECHNOLOGIST REVIEW Routine 03/19/2023 9:01 PM EDT LACTATE, WHOLE BLOOD WITH REFLEX IF ABNORMAL STAT 03/19/2023 9:00 PM EDT BLOOD GAS, VENOUS STAT 03/19/2023 9:0 0 PM EDT EXTRA LIGHT BLUE TOP Routine 03/19/2023 8:59 PM EDT EXTRA GOLD TOP Routine 03/19/2023 8:59 PM EDT EXTRA TUBES Routine 03/19/2023 8:59 PM EDT RESPIRATORY PATHOGEN PANEL, PCR STAT 03/19/2023 8:55 PM EDT ED IMAGING INTERPRETATION Routine 03/19/2023 8:53 PM EDT XR CHEST 1 VIEW STAT 03/19/2023 8:50 PM EDT CULTURE, BLOOD Routine 03/19/2023 8:45 PM EDT documented in this encounter Results * GLUCOSE METER, POINT OF CARE (03/21/2023 11:50 AM EDT) Glucose Meter 120 70 - 120 mg/dL 03/21/2023 12:00 PM EDT LABORATORY [facility] Blood Whole blood specimen / Unknown 03/21/2023 11:50 AM EDT 03/21/2023 12:00 PM EDT Marcio Tanner MD LAB POINT OF CARE TEST DOCKED DEVICE UNSOLICITED RESULTS LABORATORY [address] [address] * CULTURE, RESPIRATORY, LOWER, AEROBIC (03/21/2023 10:23 AM EDT) Culture Growth Specimen unsatisfactory. Not tested. 03/21/2023 10:31 PM EDT LABORATORY [facility] [place] Stain Description Specimen contaminated with epithelial cells canvas products sales representative of oropharyngeal contamination. Further processing may yield potentially misleading results. 03/21/2023 10:31 PM EDT LABORATORY [facility] [place] Lower Respiratory Sputum specimen / Unknown Non-blood Collection / Unknown 03/21/2023 10:23 AM EDT 03/21/2023 10:29 AM EDT Xavi Arias PA-C LAB MICRO - GENERAL ORDERABLES LABORATORY [facility] [place] [address] [place] [address] * MAGNESIUM (03/20/2023 5:25 AM EDT) Pathologist [facility] Magnesium 2.1 1.5 - 2.6 mg/dL 03/20/2023 6:26 AM EDT LABORATORY [facility] Blood Venous blood specimen / Unknown Venipuncture / Unknown 03/20/2023 5:25 AM EDT 03/20/2023 5:54 AM EDT Xavi Arias PA-C LAB BLOOD ORDERABLE S Performing Organization Address City/[facility]/ZIP Co de Phone Number LABORATORY [facility] [address] [place] [address] * (ABNORMAL) CBC (03/20/2023 5:25 AM EDT) WBC 4.61 4.00 - 10.80 K/uL 03/20/2023 6:15 AM EDT LABORATORY [facility] RBC 2.84 4.50 - 5.25 M/uL 03/20/2023 6:15 AM EDT LABORATORY [facility] HGB 9.9(L) 14.0 - 16.8 g/dL 03/20/2023 6:15 AM EDT LABORATORY [facility] HCT 30.2(L) 40.0 - 48.4 % 03/20/2023 6:15 AM EDT LABORATORY [facility] MCV 106.3 82.0 - 99.5 fL 03/20/2023 6:15 AM EDT LABORATORY [facility] MCH 34.9 27.0 - 34.0 pg 03/20/2023 6:15 AM EDT LABORATORY [facility] MCHC 32.8 32.0 - 36.0 g/dL 03/20/2023 6:15 AM EDT LABORATORY [facility] RDW 14.5 11.5 - 15.5 % 03/20/2023 6:15 AM EDT LABORATORY [facility] PLT 341 140 - 400 K/uL 03/20/2023 6:15 AM EDT LABORATORY [facility] MPV 10.5 6.6 - 11.1 fL 03/20/2023 6:15 AM EDT LABORATORY [facility] Blood Venous blood specimen / Unknown Venipuncture / Unknown 03/20/2023 5:25 AM EDT 03/20/2023 5:54 AM EDT Xavi Arias PA-C LAB BLOOD ORDERABLE S Performing Organization Address [facility] Co de Phone Number LABORATORY [address] [address] * PT INR (03/20/2023 5:25 AM EDT) Prothrombin Time 12.7 11.6 - 15.2 seconds 03/20/2023 6:18 AM EDT LABORATORY [facility] INR 0.9 0.8 - 1.2 03/20/2023 6:18 AM EDT LABORATORY [facility] Blood Venous blood specimen / Unknown Venipuncture / Unknown 03/20/2023 5:25 AM EDT 03/20/2023 5:54 AM EDT Narrative LABORATORY [facility] - 03/20/2023 6:18 AM EDT Warfarin Therapy INR: 2.0-3.0 conventional anticoagulation INR: 2.5-3.5 high intensity anticoagulation Xavi Arias PA-C LAB BLOOD ORDERABLE S Performing Organization Address City/[facility]/ZIP Co de Phone Number LABORATORY [address] [address] * (ABNORMAL) COMPREHENSIVE METABOLIC PANEL (03/20/2023 5:25 AM EDT) BUN 14 6 - 20 mg/dL 03/20/2023 6:25 AM EDT LABORATORY [facility] Creatinine 0.7 0.6 - 1.2 mg/dL 03/20/2023 6:25 AM EDT LABORATORY [facility] Estimated Glomerular Filtration Rate >90 >=60 mL/min 03/20/2023 6:25 AM EDT LABORATORY [facility] Comment:eGFR is calculated b ased on the CKD-EPI 2020 equation Sodium 138 135 - 146 mmol/L 03/20/2023 6:25 AM EDT LABORATORY [facility] Potassium 3.5 3.5 - 5.1 mmol/L 03/20/2023 6:25 AM EDT LABORATORY [facility] Chloride 97(L) 98 - 107 mmol/L 03/20/2023 6:25 AM EDT LABORATORY [facility] CO2 31 22 - 32 mmol/L 03/20/2023 6:25 AM EDT LABORATORY [facility] Anion Gap 10 7 - 15 mmol/L 03/20/2023 6:25 AM EDT LABORATORY [facility] Glucose 104 70 - 120 mg/dL 03/20/2023 6:25 AM EDT LABORATORY [facility] Albumin 3.7(L) 3.8 - 5.0 g/dL 03/20/2023 6:25 AM EDT LABORATORY [facility] AST 20 10 - 50 U/L 03/20/2023 6:25 AM EDT LABORATORY [facility] Alkaline Phosphatase 141(H) 35 - 130 U/L 03/20/2023 6:25 AM EDT LABORATORY [facility] Bilirubin, Total 0.3 <=1.2 mg/dL 03/20/2023 6:25 AM EDT LABORATORY [facility] Calcium 9.1 8.4 - 10.2 mg/dL 03/20/2023 6:25 AM EDT LABORATORY [facility] Protein 6.1 6.0 - 8.3 g/dL 03/20/2023 6:25 AM EDT LABORATORY [facility] ALT 17 10 - 50 U/L 03/20/2023 6:25 AM EDT LABORATORY [facility] Blood Venous blood specimen / Unknown Venipuncture / Unknown 03/20/2023 5:25 AM EDT 03/20/2023 5:54 AM EDT Xavi Arias PA-C LAB BLOOD ORDERABLE S LABORATORY [address] [address] * (ABNORMAL) TROPONIN T, HIGH SENSITIVITY (03/20/2023 5:25 AM EDT) Troponin T, High Sensitivity 47(H) <=22 ng/L 03/20/2023 6:41 AM EDT LABORATORY [facility] Blood Venous blood specimen / Unknown Venipuncture / Unknown 03/20/2023 5:25 AM EDT 03/20/2023 5:54 AM EDT Xavi Arias PA-C LAB BLOOD ORDERABLE S Performing Organization Address [facility]/ZIP Co de Phone Number LABORATORY [address] [address] * PHOSPHORUS (03/19/2023 10:05 PM EDT) Phosphorus 3.1 2.5 - 4.8 mg/dL 03/19/2023 11:09 PM EDT LABORATORY [facility] Blood Venous blood specimen / Unknown Venipuncture / Unknown 03/19/2023 10:05 PM EDT 03/19/2023 10:08 PM EDT Xavi Arias PA-C LAB BLOOD ORDERABLE S Performing Organization Address City/[facility]/ZIP Co de Phone Number LABORATORY [address] [address] * MAGNESIUM (03/19/2023 10:05 PM EDT) Magnesium 2.1 1.5 - 2.6 mg/dL 03/19/2023 11:09 PM EDT LABORATORY [facility] Blood Venous blood specimen / Unknown Venipuncture / Unknown 03/19/2023 10:05 PM EDT 03/19/2023 10:08 PM EDT Xavi Arias PA-C LAB BLOOD ORDERABLE S LABORATORY [facility] [address] [place] [address] * (ABNORMAL) TROPONIN T, HIGH SENSITIVITY (03/19/2023 10:05 PM EDT) Pathologist [facility] Troponin T, High Sensitivity 47(H) <=22 ng/L 03/19/2023 10:39 PM EDT LABORATORY [facility] Blood Venous blood specimen / Unknown Venipuncture / Unknown 03/19/2023 10:05 PM EDT 03/19/2023 10:08 PM EDT Denise Caldwell DO LAB BLOO D ORDERABLES LABORATORY [id number] [place] [address] * ECG Interpret (03/19/2023 9:14 PM EDT) Denise Brown DO - 03/19/2023 9:14 PM EDT Denise Caldwell DO 03/19/2023 10:29 PM ECG Interpret Date/Time: 03/19/2023 9:14 PM Performed by: Denise Caldwell DO Authorized by: Denise Caldwell DO Previous ECG: Previous ECG: Compared to current Comparison ECG info: 02/22/23 Similarity: No change Interpretation: Interpretation: abnormal Rate: ECG rate: 83 ECG rate assessment: normal Rhythm: Rhythm comment: Atrial sensed ventricular paced rhythm. Ectopy: Ectopy: none QRS: QRS axis: Normal QRS intervals: Normal Conduction: Conduction: normal ST segments: ST segments: Normal T waves: T waves: normal Comments: No change when compared to previous Denise Caldwell DO PROCEDUR E REPORT * (ABNORMAL) DIFFERENTIAL, TECHNOLOGIST REVIEW (03/19/2023 9:01 PM EDT) [facility] WBC 7.42 4.00 - 10.80 K/uL 03/19/2023 9:28 PM EDT LABORATORY [facility] Neutrophils % 67.0 40.0 - 75.0 % 03/19/2023 9:28 PM EDT LABORATORY [facility] Lymphocytes % 23.0 18.0 - 42.0 % 03/19/2023 9:28 PM EDT LABORATORY [facility] Monocytes % 7.0 1.0 - 11.0 % 03/19/2023 9:28 PM EDT LABORATORY [facility] Eosinophils % 2.0 0.0 - 6.0 % 03/19/2023 9:28 PM EDT LABORATORY [facility] Myelocytes % 1.0(H) <=0.0 % 03/19/2023 9:28 PM EDT LABORATORY [facility] Absolute Neutrophils 4.97 1.80 - 7.70 K/uL 03/19/2023 9:28 PM EDT LABORATORY [facility] Absolute Lymphocytes 1.71 1.00 - 4.80 K/uL 03/19/2023 9:28 PM EDT LABORATORY [facility] Absolute Monocytes 0.52 0.00 - 1.10 K/uL 03/19/2023 9:28 PM EDT LABORATORY [facility] Absolute Eosinophils 0.15 0.00 - 0.70 K/uL 03/19/2023 9:28 PM EDT LABORATORY [facility] Absolute Myelocytes 0.07(H) <=0.00 K/uL 03/19/2023 9:28 PM EDT LABORATORY [facility] nRBCs 03/19/2023 9:28 PM EDT LABORATORY [facility] Reactive Lymphocytes Present(A ) None Seen 03/19/2023 9:28 PM EDT LABORATORY [facility] Blood Venous blood specimen / Unknown Venipuncture / Unknown 03/19/2023 9:01 PM EDT 03/19/2023 9:06 PM EDT Denise Seals [employer] DO LAB BLOO D ORDERABLES LABORATORY [id number] [place] [address] * DIFFERENTIAL, AUTOMATED (03/19/2023 9:01 PM EDT) Blood Venous blood specimen / Unknown Venipuncture / Unknown 03/19/2023 9:01 PM EDT 03/19/2023 9:06 PM EDT Denise Bozena [employer] LAB BLOO D ORDERABLES LABORATORY [facility] [address] [place] [address] * (ABNORMAL) CBC (03/19/2023 9:01 PM EDT) [facility] WBC 7.42 4.00 - 10.80 K/uL 03/19/2023 9:28 PM EDT LABORATORY [facility] RBC 2.96 4.50 - 5.25 M/uL 03/19/2023 9:28 PM EDT LABORATORY [facility] HGB 10.4(L) 14.0 - 16.8 g/dL 03/19/2023 9:28 PM EDT LABORATORY [facility] HCT 31.8(L) 40.0 - 48.4 % 03/19/2023 9:28 PM EDT LABORATORY [facility] MCV 107.4 82.0 - 99.5 fL 03/19/2023 9:28 PM EDT LABORATORY [facility] MCH 35.1 27.0 - 34.0 pg 03/19/2023 9:28 PM EDT LABORATORY [facility] MCHC 32.7 32.0 - 36.0 g/dL 03/19/2023 9:28 PM EDT LABORATORY [facility] RDW 14.7 11.5 - 15.5 % 03/19/2023 9:28 PM EDT LABORATORY [facility] PLT 358 140 - 400 K/uL 03/19/2023 9:28 PM EDT LABORATORY [facility] MPV 10.1 6.6 - 11.1 fL 03/19/2023 9:28 PM EDT LABORATORY [facility] Blood Venous blood specimen / Unknown Venipuncture / Unknown 03/19/2023 9:01 PM EDT 03/19/2023 9:06 PM EDT Denise Joe [employer] DO LAB BLOO D ORDERABLES LABORATORY [id number] [place] [address] * (ABNORMAL) TROPONIN T, HIGH SENSITIVITY (03/19/2023 9:01 PM EDT) [facility] Troponin T, High Sensitivity 49(H) <=22 ng/L 03/19/2023 9:34 PM EDT LABORATORY [facility] Blood Venous blood specimen / Unknown Venipuncture / Unknown 03/19/2023 9:01 PM EDT 03/19/2023 9:06 PM EDT Denise Seals [employer] DO LAB BLOO D ORDERABLES Performing Organization Address [facility] de Phone Number LABORATORY [address] [address] * BNP, NT-PRO (03/19/2023 9:01 PM EDT) [facility] BNP, NT-Pro 247 <300 pg/mL 03/19/2023 9:39 PM EDT LABORATORY [facility] Blood Venous blood specimen / Unknown Venipuncture / Unknown 03/19/2023 9:01 PM EDT 03/19/2023 9:06 PM EDT Narrative LABORATORY [facility] - 03/19/2023 9:39 PM EDT Exclude Heart Failure: <300 pg/mL Diagnose Heart Failure: Age <50 yr: >450 pg/mL 50-75 yr: >900 pg/mL >75 yr: >1800 pg/mL GFR is 30-59 mL/min: >1200 pg/mL or Age-adjusted values GFR <30 mL/min: do not use, not reliable Prognostic threshold: 1000 pg/mL Denise Ann [employer] DO LAB BLOO D ORDERABLES Performing Organization Address [facility] de Phone Number LABORATORY [address] [phone] * (ABNORMAL) COMPREHENSIVE METABOLIC PANEL (03/19/2023 9:01 PM EDT) [facility] BUN 17 6 - 20 mg/dL 03/19/2023 9:35 PM EDT LABORATORY [facility] Creatinine 0.8 0.6 - 1.2 mg/dL 03/19/2023 9:35 PM EDT LABORATORY [facility] Estimated Glomerular Filtration Rate 89 >=60 mL/min 03/19/2023 9:35 PM EDT LABORATORY [facility] Comment:eGFR is calculated b ased on the CKD-EPI 2020 equation Sodium 134(L) 135 - 146 mmol/L 03/19/2023 9:35 PM EDT LABORATORY [facility] Potassium 3.9 3.5 - 5.1 mmol/L 03/19/2023 9:35 PM EDT LABORATORY [facility] Chloride 95(L) 98 - 107 mmol/L 03/19/2023 9:35 PM EDT LABORATORY [facility] CO2 28 22 - 32 mmol/L 03/19/2023 9:35 PM EDT LABORATORY [facility] Anion Gap 11 7 - 15 mmol/L 03/19/2023 9:35 PM EDT LABORATORY [facility] Glucose 109 70 - 120 mg/dL 03/19/2023 9:35 PM EDT LABORATORY [facility] Albumin 3.9 3.8 - 5.0 g/dL 03/19/2023 9:35 PM EDT LABORATORY [facility] AST 21 10 - 50 U/L 03/19/2023 9:35 PM EDT LABORATORY [facility] Alkaline Phosphatase 157(H) 35 - 130 U/L 03/19/2023 9:35 PM EDT LABORATORY [facility] Bilirubin, Total 0.3 <=1.2 mg/dL 03/19/2023 9:35 PM EDT LABORATORY [facility] Calcium 9.4 8.4 - 10.2 mg/dL 03/19/2023 9:35 PM EDT LABORATORY [facility] Protein 6.7 6.0 - 8.3 g/dL 03/19/2023 9:35 PM EDT LABORATORY [facility] ALT 19 10 - 50 U/L 03/19/2023 9:35 PM EDT LABORATORY [facility] Blood Venous blood specimen / Unknown Venipuncture / Unknown 03/19/2023 9:01 PM EDT 03/19/2023 9:06 PM EDT Denise Caldwell DO LAB BLOO D ORDERABLES LABORATORY [id number] [place] [address] * (ABNORMAL) BLOOD GAS, VENOUS (03/19/2023 9:00 PM EDT) [facility] Temperature 37.0 C 03/19/2023 9:16 PM EDT LABORATORY [facility] pH, Venous 7.374 7.320 - 7.430 units 03/19/2023 9:16 PM EDT LABORATORY [facility] pCO2, Venous 57.7 40.0 - 60.0 mmHg 03/19/2023 9:16 PM EDT LABORATORY [facility] pO2, Venous 23.3(L) 25.0 - 50.0 mmHg 03/19/2023 9:16 PM EDT LABORATORY [facility] Base Excess, Venous 7.5(H) -2.0 - 2.0 mmol/L 03/19/2023 9:16 PM EDT LABORATORY [facility] Hemoglobin, Whole Blood 7.7(L) 14.0 - 16.8 g/dL 03/19/2023 9:16 PM EDT LABORATORY [facility] Oxyhemoglobin, Venous 35.1(L) 40.0 - 85.0 % total Hgb 03/19/2023 9:16 PM EDT LABORATORY [facility] Carboxyhemoglobi n, Whole Blood 2.0(H) <=1.5 % total Hgb 03/19/2023 9:16 PM EDT LABORATORY [facility] Comment:Smokers: 0-9.0 % Methemoglobin, Whole Blood 1.1 <=1.5 % total Hgb 03/19/2023 9:16 PM EDT LABORATORY [facility] Reduced Hemoglobin, Venous 61.8 % total Hgb 03/19/2023 9:16 PM EDT LABORATORY [facility] O2 Content, Venous 3.8(L) 7.0 - 18.0 %vol 03/19/2023 9:16 PM EDT LABORATORY [facility] Bicarbonate, Whole Blood 33.6(H) 23.0 - 31.0 mmol/L 03/19/2023 9:16 PM EDT LABORATORY [facility] Blood Venous blood specimen / Unknown Venipuncture / Unknown 03/19/2023 9:00 PM EDT 03/19/2023 9:10 PM EDT Denise Caldwell DO LAB BLOO D ORDERABLES LABORATORY [id number] [place] [address] * LACTATE, WHOLE BLOOD WITH REFLEX IF ABNORMAL (03/19/2023 9:00 PM EDT) [facility] Lactate, Whole Blood 1.4 0.4 - 2.0 mmol/L 03/19/2023 9:16 PM EDT LABORATORY [facility] Blood Venous blood specimen / Unknown Venipuncture / Unknown 03/19/2023 9:00 PM EDT 03/19/2023 9:10 PM EDT Denise Seals [email or web address] DO LAB BLOO D ORDERABLES LABORATORY [address] [address] * EXTRA GOLD TOP (03/19/2023 8:59 PM EDT) Blood Venous blood specimen / Unknown 03/19/2023 8:59 PM EDT 03/19/2023 9:10 PM EDT Denise Seals [email or web address] DO LAB BLOO D ORDERABLES LABORATORY [address] [address] * EXTRA LIGHT BLUE TOP (03/19/2023 8:59 PM EDT) Blood Venous blood specimen / Unknown 03/19/2023 8:59 PM EDT 03/19/2023 9:10 PM EDT Denise Ann [email or web address] DO LAB BLOO D ORDERABLES LABORATORY [address] [address] * RESPIRATORY PATHOGEN PANEL, PCR (03/19/2023 8:55 PM EDT) [facility] Adenovirus by PCR Negative Negative 023 9:59 PM EDT LABORATORY [facility] Coronavirus 229E by PCR Negative Negative 03/19/2023 9:59 PM EDT LABORATORY [facility] Coronavirus HKU1 by PCR Negative Negative 03/19/2023 9:59 PM EDT LABORATORY [facility] Coronavirus NL63 by PCR Negative Negative 03/19/2023 9:59 PM EDT LABORATORY [facility] Coronavirus OC43 by PCR Negative Negative 03/19/2023 9:59 PM EDT LABORATORY [facility] Coronavirus SARS-CoV-2 by PCR Negative Negative 03/19/2023 9:59 PM EDT LABORATORY [facility] Human Metapneumovirus by PCR Negative Negative 03/19/2023 9:59 PM EDT LABORATORY [facility] Rhinovirus/Enterovi catrachito by PCR Negative Negative 03/19/2023 9:59 PM EDT LABORATORY [facility] Influenza A Virus by PCR Negative Negative 03/19/2023 9:59 PM EDT LABORATORY [facility] Influenza B Virus by PCR Negative Negative 03/19/2023 9:59 PM EDT LABORATORY [facility] Parainfluenza Virus 1 by PCR Negative Negative 03/19/2023 9:59 PM EDT LABORATORY [facility] Parainfluenza Virus 2 by PCR Negative Negative 03/19/2023 9:59 PM EDT LABORATORY [facility] Parainfluenza Virus 3 by PCR Negative Negative 03/19/2023 9:59 PM EDT LABORATORY [facility] Parainfluenza Virus 4 by PCR Negative Negative 03/19/2023 9:59 PM EDT LABORATORY [facility] Respiratory Syncytial Virus by PCR Negative Negative 03/19/2023 9:59 PM EDT LABORATORY [facility] Bordetella pertussis by PCR Negative Negative 03/19/2023 9:59 PM EDT LABORATORY [facility] Chlamydia pneumoniae by PCR Negative Negative 03/19/2023 9:59 PM EDT LABORATORY [facility] Mycoplasma pneumoniae by PCR Negative Negative 03/19/2023 9:59 PM EDT LABORATORY [facility] Bordetella parapertussis by PCR Negative Negative 03/19/2023 9:59 PM EDT LABORATORY [facility] Comment: The primers that detect Rhinovirus may cross react with some Enterorviruses. The validation of bronchial specimens, tracheal aspirates, and throats for this assay was developed and performance characteristics determined by [facility]. The validation of alternate specimen types has not been cleared or approved by the U.S. Food and Drug Administration (FDA). It has been determined that such clearance or approval is not necessary. Upper Respiratory Mid-turbinate nasal swab / Unknown Non-blood Collection / Unknown 03/19/2023 8:55 PM EDT 03/19/2023 9:06 PM EDT Denise Caldwell DO LAB MICR O - GENERAL ORDERABLES LABORATORY [id number] [place] [address] * Imaging Interpretation (03/19/2023 8:53 PM EDT) Narrative Denise Spangler DO - 03/19/2023 8:53 PM EDT Denise Caldwell DO 03/19/2023 10:29 PM Imaging Interpretation Date/Time: 03/19/2023 8:53 PM Performed by: Denise Caldwell DO Authorized by: Denise Caldwell DO Image type: Chest Number of views: 1 Views: AP Lungs: comment: Streaking present right lower lobe when compared to 02/21/23. This could represent infiltrate vs atelectasis vs edema Location: Right Mediastinum: Normal Negative findings: no cardiomegaly, no mass, no pneumomediastinum/pericardium and no widening Bones: Normal Negative findings: no clavicle fracture, no rib(s) fracture, no scapula fracture and no shoulder fracture Impression: Comments: Question infiltrate vs atelectasis vs edema right lower lobe when compared to 02/21/23 Denise Caldwell DO PROCEDUR E REPORT * XR CHEST 1 VIEW (03/19/2023 8:50 PM EDT) Anatomical Region Laterality Modality Chest Computed Radiogr aphy 03/19/2023 8:47 PM EDT Impressions 03/19/2023 9:31 PM EDT IMPRESSION: 1. No evidence of acute cardiopulmonary disease. 2. Mild changes of chronic obstructive pulmonary disease. THIS DOCUMENT HAS BEEN ELECTRONICALLY SIGNED BY LAKEISHA ESCOBAR MD Narrative 03/19/2023 9:31 PM EDT PROCEDURE INFORMATION: Exam: XR Chest Exam date and time: 03/19/2023 8:47 PM Age: 82 years old Clinical indication: Shortness of breath; Prior surgery; Surgery date: 6+ months; Surgery type: Pacemaker TECHNIQUE: Imaging protocol: Radiologic exam of the chest. Views: 1 view. COMPARISON: DX XR CHEST 1 VIEW 02/21/2023 6:26 PM FINDINGS: Tubes, catheters and devices: Pacemaker device. Lungs: Hyperlucent changes are demonstrated. Increase in the lung volumes is demonstrated. Pleural spaces: Unremarkable. No pleural effusion. No pneumothorax. Heart/Mediastinum: Unremarkable. No cardiomegaly. Bones/joints: Unremarkable. Procedure Note Lakeisha Escobar MD - 03/19/2023 PROCEDURE INFORMATION: Exam: XR Chest Exam date and time: 03/19/2023 8:47 PM Age: 82 years old Clinical indication: Shortness of breath; Prior surgery; Surgery date: 6+ months; Surgery type: Pacemaker TECHNIQUE: Imaging protocol: Radiologic exam of the chest. Views: 1 view. COMPARISON: DX XR CHEST 1 VIEW 02/21/2023 6:26 PM FINDINGS: Tubes, catheters and devices: Pacemaker device. Lungs: Hyperlucent changes are demonstrated. Increase in the lung volumesis demonstrated. Pleural spaces: Unremarkable. No pleural effusion. No pneumothorax. Heart/Mediastinum: Unremarkable. No cardiomegaly. Bones/joints: Unremarkable. IMPRESSION IMPRESSION: 1. No evidence of acute cardiopulmonary disease. 2. Mild changes of chronic obstructive pulmonary disease. THIS DOCUMENT HAS BEEN ELECTRONICALLY SIGNED BY LAKEISHA ESCOBAR MD Denise Caldwell RADIOLOG Y ([facility]) documented in this encounter Visit Diagnoses Diagnosis COPD with acute exacerbation (HCC)- Primary Obstructive chronic bronchitis with exacerbation SOB (shortness of breath) Shortness of breath Acute exacerbation of chronic obstructive pulmonary disease (COPD) (HCC) Obstructive chronic bronchitis with exacerbation COPD with acute exacerbation (HCC) Obstructive chronic bronchitis with exacerbation Chest pain Chest pain, unspecified Ambulatory dysfunction Tobacco use disorder Dyslipidemia, goal LDL below 100 Other and unspecified hyperlipidemia Elevated troponin Other abnormal blood chemistry PUD (peptic ulcer disease) Peptic ulcer, unspecified site, unspecified as acute or chronic, without mention of hemorrhage, perforation, or obstruction BPH (benign prostatic hyperplasia) Unspecified hyperplasia of prostate without urinary obstruction and other lower urinary tract symptoms (LUTS) Abdominal aortic aneurysm without rupture (HCC) Abdominal aneurysm without mention of rupture 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) Atherosclerosis of tangirnaq arteries of the extremities with intermittent claudication Seizure disorder (HCC) Unspecified epilepsy without mention of intractable epilepsy (HFpEF) heart failure with preserved ejection fraction (HCC) Aortic stenosis Aortic valve disorders documented in this encounter Administered Medications Inactive Administered Medications - up to 3 most recent administrations Medication Order MAR Action Action Date Dose Rate Site Acetaminophen (Tylenol) tab 650 mg 650 mg, Oral, Q6H PRN Pain, Mild, Fever >38C(100.5F), Headache, Starting on Fri03/19/23 at 2234, Until 03/22/23 at 1703, Maximum of 4 grams (4000 mg) per day. Albuterol Sulfate (Proventil) (2.5 MG/3ML) 0.083% inhalation solution 2.5 mg 2.5 mg, Nebulizer, ONCE, On Fri03/19/23 at 2100, For 1 dose Given 03/19/2023 8:49 PM EDT 2.5 mg Albuterol Sulfate (Proventil) (2.5 MG/3ML) 0.083% inhalation solution 2.5 mg 2.5 mg, Nebulizer, ONCE, On Fri03/19/23 at 2145, For 1 dose Given 03/19/2023 9:22 PM EDT 2.5 mg Albuterol Sulfate (Proventil) (2.5 MG/3ML) 0.083% inhalation solution 2.5 mg 2.5 mg, Nebulizer, RESPQID, First dose on Fri03/20/23 at 0800, Until Discontinued Given 03/22/2023 7:19 AM EDT 2.5 mg Given 03/21/2023 7:18 PM EDT 2.5 mg Given 03/21/2023 3:55 PM EDT 2.5 mg Albuterol Sulfate (Proventil) (2.5 MG/3ML) 0.083% inhalation solution 2.5 mg 2.5 mg, Nebulizer, Q4H PRN Dyspnea, Starting on Fri03/19/23 at 2307, Until 03/22/23 at 1703 Given 03/19/2023 11:21 PM EDT 2.5 mg aspirin enteric coated tab 81 mg 81 mg, Oral, HS, First dose on Fri03/20/23 at 0200, Until Discontinued Given 03/21/2023 8:40 PM EDT 81 mg Given 03/20/2023 9:41 PM EDT 81 mg Given 03/20/2023 2:09 AM EDT 81 mg Azithromycin (Zithromax) 500 mg in D5W 250 mL ivpb 500 mg, IV Piggyback, Q24H, 5 doses, First dose on Fri03/19/23 at 2315, Last dose on Fri03/23/23 at 2315, IN D5W MIX BEFORE ADMINISTERING New Bag 03/19/2023 11:15 PM EDT 500 mg 275 mL/hr Azithromycin (Zithromax) tab 500 mg 500 mg, Oral, Daily(AM), First dose on Fri03/21/23 at 0900, Last dose on Fri03/25/23 at 0900, For 5 days Given 03/22/2023 8:24 AM EDT 500 mg Given 03/21/2023 8:04 AM EDT 500 mg Calcium Carbonate 500 mg + Vitamin D 5 mcg (200 units) per tab 1 Tablet, Oral, BID (NOON, 1700), First dose on Fri03/20/23 at 1200, Until Discontinued, Vitamin D 200 units = 5 mcg Given 03/22/2023 12:19 P M EDT 1 Tablet Given 03/21/2023 4:01 PM EDT 1 Tablet Given 03/21/2023 11:19 AM EDT 1 Tablet carBAMazepine (Tegretol) tab 200 mg 200 mg, Oral, TID(AM/NOON/HS), First dose on Fri03/20/23 at 0600, Until Discontinued Given 03/22/2023 12:19 PM EDT 200 mg Given 03/22/2023 5:40 AM EDT 200 mg Given 03/21/2023 8:39 PM EDT 200 mg cefTRIAXone in dextrose (Rocephin) IVPB 1 g IV Piggyback, 1 g, Q24H, 5 doses, First dose on Fri03/19/23 at 2315, Last dose on Fri03/23/23 at 2315, Administer over 30 Minutes New Bag 03/20/2023 10:10 PM EDT 1 g 100 mL/hr New Bag 03/19/2023 11:57 PM EDT 1 g 100 mL/hr cholecalciferol (VIT D3) (Vitamin D3) tab 2,000 Units 2,000 Units, Oral, Daily(AM), First dose on [place] 03/20/23 at 0900, Until Discontinued, NOTE: 1000 units = 25 mcg Given 03/22/2023 8:24 AM E DT 2,000 Units Given 03/21/2023 8:05 AM EDT 2,000 Units Given 03/20/2023 9:16 AM EDT 2,000 Units clopidogrel (pLAVix) tab 37.5 mg 37.5 mg, Oral, Daily(AM), First dose on [place] 03/20/23 at 0900, Until Discontinued Given 03/22/2023 8:24 AM EDT 37.5 mg Given 03/21/2023 8:04 AM EDT 37.5 mg Given 03/20/2023 9:16 AM EDT 37.5 mg Docusate Sodium (Colace) cap 100 mg 100 mg, Oral, BID(AM/PM), First dose on [facility] 03/20/23 at 0900, Until Discontinued, For oral administration ONLY, if route of administration is other than oral and alternative product must be ordered. Given 03/22/2023 8:24 AM EDT 100 mg Given 03/21/2023 8:40 PM EDT 100 mg Given 03/21/2023 8:04 AM EDT 100 mg Enoxaparin (Lovenox) inj 30 mg 30 mg, Subcutaneous, [id number], First dose on [facility] 03/20/23 at 1000, Until Discontinued, If patient is on warfarin, inform provider if daily INR value is 2 or greater! Given 03/22/2023 10:04 AM EDT 30 mg Abdo men Right Lower Given 03/21/2023 9:45 AM EDT 30 mg Ab domen Left Lower Finasteride (Proscar) tab 5 mg 5 mg, Oral, Daily(AM), First dose on [place] 03/20/23 at 0900, Until Discontinued Given 03/22/2023 8:24 AM EDT 5 mg Given 03/21/2023 8:05 AM EDT 5 mg Given 03/20/2023 9:14 AM EDT 5 mg fluticasone (Flonase) nasal inhaler 2 Cheyney 2 Cheyney, Each Nostril, Daily(AM), First dose on Fri03/20/23 at 0900, Until Discontinued, 50 mcg / Actuation Given 03/22/2023 8:38 AM EDT 2 Sprays Given 03/21/2023 9:18 AM EDT 2 Sprays fluticasone furoate-vilanterol (BREO ellipta) 200-25 MCG/ACT inhaler 1 Puff 1 Puff, Inhalation, RESPDAILY, First dose on Fri03/20/23 at 0800, Until Discontinued Given 03/22/2023 7:20 AM EDT 1 Pu ff Given 03/21/2023 7:28 AM EDT 1 Puff Given 03/20/2023 8:12 AM EDT 1 Puff folic acid tab 1 mg 1 mg, Oral, Daily(AM), First dose on Fri03/20/23 at 0900, Until Discontinued Given 03/22/2023 8:24 AM EDT 1 mg Given 03/21/2023 8:04 AM EDT 1 mg Given 03/20/2023 9:14 AM EDT 1 mg Furosemide (Lasix) inj 40 mg 40 mg, IV Push, ONCE, On Fri03/20/23 at 0030, For 1 dose Given 03/19/2023 11:57 PM EDT 40 mg Furosemide (Lasix) tab 20 mg 20 mg, Oral, Daily(AM), First dose on Fri03/20/23 at 0900, Until Discontinued Given 03/22/2023 8:24 AM EDT 20 mg Given 03/21/2023 8:04 AM EDT 20 mg Given 03/20/2023 9:14 AM EDT 20 mg house antacid (Mi-Acid II) oral susp 15 mL 15 mL, Oral, Q4H PRN Indigestion, Starting on Fri03/19/23 at 2234, Until 03/22/23 at 1703, SHAKE WELL Ibuprofen (Motrin) tab 400 mg 400 mg, Oral, Q8H PRN Pain, Moderate, Starting on Fri03/21/23 at 1543, Until 03/22/23 at 1703 Given 03/21/2023 4:52 PM EDT 400 mg Lactulose (Constulose) oral soln 30 g 30 g, Oral, ONCE, On Fri03/21/23 at 0030, For 1 dose Given 03/21/2023 12:32 AM EDT 30 g melatonin tab 3 mg 3 mg, Oral, HS PRN Insomnia, Starting on Fri03/19/23 at 2234, Until 03/22/23 at 1703 Menthol ([place]) cough drop 1 Lozenge 1 Lozenge, Oral, Q2H PRN Sore throat, Starting on Fri03/20/23 at 2025, Until 03/22/23 at 1703, Given 03/20/2023 8:32 PM EDT 1 Lozenge methylPREDNISolone sodium succ (SOLU-Medrol) inj 40 mg 40 mg, IV Push, ONCE, On Fri03/19/23 at 2145, For 1 dose Given 03/19/2023 9:12 PM EDT 40 mg methylPREDNISolone sodium succ (SOLU-Medrol) inj 40 mg 40 mg, IV Push, Daily(AM), First dose on Fri03/20/23 at 0900, Until Discontinued Given 03/21/2023 9:10 AM EDT 40 m g Given 03/20/2023 9:13 AM EDT 40 mg metoprolol succinate XL (toPROL XL) tab 12.5 mg 12.5 mg, Oral, Daily(AM), First dose on Fri03/20/23 at 0900, Until Discontinued, Hold for HR less than 60 or SBP below 100 and notify service if dose is held This med should NOT be Crushed or Chewed. Given 03/22/2023 8:24 AM EDT 12.5 mg Given 03/21/2023 8:04 AM EDT 12.5 mg Given 03/20/2023 9:13 AM EDT 12.5 mg midodrine (Proamatine) tab 5 mg 5 mg, Oral, TID(AM/NOON/HS), First dose on Fri03/20/23 at 0600, Until Discontinued Given 03/22/2023 12:19 PM EDT 5 mg Given 03/22/2023 5:40 AM EDT 5 mg Given 03/21/2023 8:40 PM EDT 5 mg milk of magnesia (Mom) oral susp 30 mL 30 mL, Oral, ONCE, On Fri03/21/23 at 0030, For 1 dose Given 03/21/2023 12:32 AM EDT 30 mL Mirtazapine (Remeron) tab 30 mg 30 mg, Oral, HS, First dose on Layne 03/20/23 at 0200, Until Discontinued Given 03/21/2023 8:40 PM EDT 30 mg Given 03/20/2023 9:42 PM EDT 30 mg Given 03/20/2023 2:09 AM EDT 30 mg ondansetron (Zofran) inj 4 mg 4 mg, IV Push, Q6H PRN Nausea, Starting on Fri03/19/23 at 2234, Until 03/22/23 at 1703 oxygen GAS Inhalation, OXYGEN, First dose on Layne 03/20/23 at 0000, Until Discontinued, Device/Managed by: Low Flow Device, Goal SPO2 (%): 88-94, Starting Device: Nasal Cannula, Inital Flow Rate (LPM): 2, Lowest Support: Nasal Cannula: Flow 0-6 LPM. Titrate up/down by 1 LPM., Titration Interval: Q2 minutes and as needed., Notify Provider: For sudden DECREASE in resting SPO2 to less than 85% and when escalating delivery device., 2L HS Oxygen On 03/22/2023 12:00 AM EDT Oxygen On 03/21/2023 8:00 AM EDT Oxygen On 03/21/2023 12:00 AM EDT 2 L/min(Oxygen) pantoprazole (Protonix) tab 40 mg 40 mg, Oral, BID(AM/PM), First dose on Layne 03/20/23 at 0900, Until Discontinued, This med should NOT be Crushed or Chewed Given 03/22/2023 8:25 AM EDT 40 mg Given 03/21/2023 8:40 PM EDT 40 mg Given 03/21/2023 8:05 AM EDT 40 mg potassium chloride ER tab 10 mEq 10 mEq, Oral, Daily(AM), First dose on Layne 03/20/23 at 0900, Until Discontinued Given 03/22/2023 8:24 AM EDT 10 mEq Given 03/21/2023 8:04 AM EDT 10 mEq Given 03/20/2023 9:14 AM EDT 10 mEq predniSONE (Deltasone) tab 40 mg 40 mg, Oral, Daily(AM), First dose on 03/22/23 at 0900, Until Discontinued Given 03/22/2023 8:25 AM EDT 40 mg Simvastatin (Zocor) tab 40 mg 40 mg, Oral, QPM-1999, First dose on Fri03/20/23 at 2000, Until Discontinued Given 03/21/2023 8:39 PM EDT 40 mg Given 03/20/2023 8:32 PM EDT 40 mg sodium chloride 0.9 % flush peripheral nikky 3 mL 3 mL, IV Push, QSHIFT, First dose on Fri03/20/23 at 0000, Until Discontinued, Do not flush if lock, PICC, or central line not in place; IV infusing or unable to flush. Given 03/22/2023 8:38 AM EDT 3 mL Given 03/22/2023 12:00 AM EDT 3 mL Given 03/21/2023 2:59 PM EDT 3 mL sodium chloride 0.9 % flush/inj 3 mL 3 mL, IV Push, PRN Other, Line Patency, Starting on Fri03/19/23 at 2233, Until 03/22/23 at 1703, Do not flush if lock, PICC, or central line not in place, IV infusing or unable to flush tamsulosin (Flomax) cap 0.8 mg 0.8 mg, Oral, Daily(AM), First dose on Fri03/20/23 at 0900, Until Discontinued, Administer 30 min after meal. This med should NOT be Crushed or Chewed or opened! ORAL administration only!! Given 03/22/2023 8:24 AM EDT 0.8 mg Given 03/21/2023 8:04 AM EDT 0.8 mg Given 03/20/2023 9:14 AM EDT 0.8 mg traMADol (Ultram) tab 25 mg 25 mg, Oral, Q6H PRN Pain, Severe, pain intensity 7 to 10/10, Starting on Fri03/20/23 at 0115, Until 03/22/23 at 1703 Given 03/21/2023 2:08 PM EDT 25 mg documented in this encounter Active and Recently Administered Medications Times are shown in EDT. Scheduled Medication Order 03/20/2023 03/21/2023 03/22/2023 Albuterol Sulfate (Proventil) (2.5 MG/3ML) 0.083% inhalation solution 2.5 mg 2.5 mg, Nebulizer, RESPQID, First dose on Fri03/20/23 at 0800, Until Discontinued 0811 (Given - Provider: Ernst Marroquin, MAGDALENE)1220 (Given - Provider: Ernst Marroquin, TELEPHONE ADVICE NURSE)1620 (Given - Provider: Ernst Marroquin TELEPHONE ADVICE NURSE)1916 (Given - Provider: Gina Tony, TELEPHONE ADVICE NURSE) 0727 (Given - Provider: Liberty Childress RRT)1239 (Given - Provider: Liberty Childress TELEPHONE ADVICE NURSE)1555 (Given - Provider: Liberty Childress RRT)1918 (Given - Provider: Blaze Bermudez RRT) 0719 (Given - Provider: Liberty Childress RRT)1200 (Not Given - Provider: Liberty Childress RRT - Reason: Refused-Notify Provider - Comment: Patient discharged and doesn't want) aspirin enteric coated tab 81 mg 81 mg, Oral, HS, First dose on Fri03/20/23 at 0200, Until Discontinued 020 (Given - Provider: Blas Rodriguez LPN)2140 (Given - Provider: Jaylin Ruano, FERNANDA) 2039 (Given - Provider: Ricarda Mercer RN) Azithromycin (Zithromax) tab 500 mg 500 mg, Oral, Daily(AM), First dose on Fri03/21/23 at 0900, Last dose on Fri03/25/23 at 0900, For 5 days 0804 (Given - Provider: Herber Brown LPN) 0824 (Given - Provider: Doreen Cordero LPN) Calcium Carbonate 500 mg + Vitamin D 5 mcg (200 units) per tab 1 Tablet, Oral, BID (NOON, 1700), First dose on Fri03/20/23 at 1200, Until Discontinued, Vitamin D 200 units = 5 mcg 1140 (Given - Provider: Daniel Alvarez, FERNANDA)1700 (Not Given - Provider: Daniel Alvarez RN - Reason: Refused-Notify Provider) 1119 (Given - Provider: Herber Brown LPN)1601 (Given - Provider: Herber Brown LPN) 1219 (Given - Provider: Doreen Cordero LPN) carBAMazepine (Tegretol) tab 200 mg 200 mg, Oral, TID(AM/NOON/HS), First dose on Fri03/20/23 at 0600, Until Discontinued 0548 (Given - Provider: Blas Rodriguez LPN)1140 (Given - Provider: Daniel Alvarez RN)2141 (Given - Provider: Jaylin Ruano RN) 0541 (Given - Provider: Jaylin Ruano RN)111 (Given - Provider: Herber Brown LPN)2038 (Given - Provider: Ricarda Mercer RN) 0540 (Given - Provider: Ricarda Mercer RN)121 (Given - Provider: Doreen Cordero LPN) cefTRIAXone in dextrose (Rocephin) IVPB 1 g (CANCELED) IV Piggyback, 1 g, Q24H, 5 doses, First dose on Fri03/19/23 at 2315, Last dose on Fri03/23/23 at 2315, Administer over 30 Minutes 2210 (New Bag - Provider: Jaylin Ruano RN) cholecalciferol (VIT D3) (Vitamin D3) tab 2,000 Units 2,000 Units, Oral, Daily(AM), First dose on Fri03/20/23 at 0900, Until Discontinued, NOTE: 1000 units = 25 mcg 0916 (Given - Provider: Daniel Alvarez RN) 08 (Given - Provider: Herber Brown LPN) 0824 (Given - Provider: Doreen Cordero LPN) clopidogrel (pLAVix) tab 37.5 mg 37.5 mg, Oral, Daily(AM), First dose on Fri03/20/23 at 0900, Until Discontinued 0916 (Given - Provider: Daniel Alvarez RN) 08 (Given - Provider: Herber Brown LPN) 0824 (Given - Provider: Doreen Cordero LPN) Docusate Sodium (Colace) cap 100 mg 100 mg, Oral, BID(AM/PM), First dose on Fri03/20/23 at 0900, Until Discontinued, For oral administration ONLY, if route of administration is other than oral and alternative product must be ordered. 0916 (Given - Provider: Daniel Alvarez RN)2031 (Given - Provider: Jaylin Ruano RN) 08 (Given - Provider: Herber Brown LPN)2039 (Given - Provider: Ricarda Mercer RN) 0824 (Given - Provider: Doreen Cordero LPN) Enoxaparin (Lovenox) inj 30 mg 30 mg, Subcutaneous, [id number], First dose on Layne 03/20/23 at 1000, Until Discontinued, If patient is on warfarin, inform provider if daily INR value is 2 or greater! 1000 (Not Given - Provider: Daniel Alvarez RN - Reason: Refused-Notify Provider) 0945 (Given - Provider: Herber Brown LPN) 1004 (Given - Provider: Doreen Cordero LPN) Finasteride (Proscar) tab 5 mg 5 mg, Oral, Daily(AM), First dose on Fri03/20/23 at 0900, Until Discontinued 913 (Given - Provider: Daniel Alvarez RN) 08 (Given - Provider: Herber Brown LPN) 0824 (Given - Provider: Doreen Cordero LPN) fluticasone (Flonase) nasal inhaler 2 Cheyney 2 Cheyney, Each Nostril, Daily(AM), First dose on Fri03/20/23 at 0900, Until Discontinued, 50 mcg / Actuation 09 (Not Given - Provider: Daniel Alvarez RN - Reason: Refused-Notify Provider) 0918 (Given - Provider: Herber Brown LPN) 0838 (Given - Provider: Doreen Cordero LPN) fluticasone furoate-vilanterol (BREO ellipta) 200-25 MCG/ACT inhaler 1 Puff 1 Puff, Inhalation, RESPDAILY, First dose on Fri03/20/23 at 0800, Until Discontinued 811 (Given - Provider: Ernst Marroquin, MAGDALENE) 0728 (Given - Provider: Liberty Childress, MAGDALENE) 0720 (Given - Provider: Liberty Childress RRT) folic acid tab 1 mg 1 mg, Oral, Daily(AM), First dose on Fri03/20/23 at 0900, Until Discontinued 913 (Given - Provider: Daniel Alvarez RN) 0804 (Given - Provider: Herber Brown LPN) 0824 (Given - Provider: Doreen Cordero LPN) Furosemide (Lasix) tab 20 mg 20 mg, Oral, Daily(AM), First dose on Fri03/20/23 at 0900, Until Discontinued 14 (Given - Provider: Daniel Alvarez RN) 08 (Given - Provider: Herber Brown LPN) 0824 (Given - Provider: Doreen Cordero LPN) Lactulose (Constulose) oral soln 30 g (COMPLETED) 30 g, Oral, ONCE, On Fri03/21/23 at 0030, For 1 dose 0032 (Given - Provider: Jaylin Ruano RN) methylPREDNISolone sodium succ (SOLU-Medrol) inj 40 mg (CANCELED) 40 mg, IV Push, Daily(AM), First dose on Fri03/20/23 at 0900, Until Discontinued 912 (Given - Provider: Daniel Alvarez RN) 909 (Given - Provider: Mercy Bowen RN) metoprolol succinate XL (toPROL XL) tab 12.5 mg 12.5 mg, Oral, Daily(AM), First dose on Fri03/20/23 at 0900, Until Discontinued, Hold for HR less than 60 or SBP below 100 and notify service if dose is held This med should NOT be Crushed or Chewed. 912 (Given - Provider: Daniel Alvarez RN) 08 (Given - Provider: Herber Brown LPN) 823 (Given - Provider: Doreen Cordero LPN) midodrine (Proamatine) tab 5 mg 5 mg, Oral, TID(AM/NOON/HS), First dose on Fri03/20/23 at 0600, Until Discontinued 0548 (Given - Provider: Blas Rodriguez LPN)1140 (Given - Provider: Daniel Alvarez RN)214 (Given - Provider: Jaylin Ruano RN) 0541 (Given - Provider: Jaylin Ruano RN)1119 (Given - Provider: Herber Brown LPN)2040 (Given - Provider: Ricarda Mercer, RN) 0540 (Given - Provider: Ricarda Mercer, RN)1219 (Given - Provider: Doreen Cordero LPN) milk of magnesia (Mom) oral susp 30 mL (COMPLETED) 30 mL, Oral, ONCE, On Fri03/21/23 at 0030, For 1 dose 0032 (Given - Provider: Jaylin Ruano RN) Mirtazapine (Remeron) tab 30 mg 30 mg, Oral, HS, First dose on Fri03/20/23 at 0200, Until Discontinued 208 (Given - Provider: Blas Rodriguez LPN)2141 (Given - Provider: Jaylin Ruano RN) 2039 (Given - Provider: Ricarda Mercer, RN) oxygen GAS Inhalation, OXYGEN, First dose on Fri03/20/23 at 0000, Until Discontinued, Device/Managed by: Low Flow Device, Goal SPO2 (%): 88-94, Starting Device: Nasal Cannula, Inital Flow Rate (LPM): 2, Lowest Support: Nasal Cannula: Flow 0-6 LPM. Titrate up/down by 1 LPM., Titration Interval: Q2 minutes and as needed., Notify Provider: For sudden DECREASE in resting SPO2 to less than 85% and when escalating delivery device., 2L HS 0000 (Oxygen On - Provider: Blas Rodriguez LPN)0800 (Oxygen On - Provider: Daniel Alvarez RN)1600 (Oxygen Off - Provider: Daniel Alvarez RN) 0000 (Oxygen On - Provider: Jaylin Ruano RN)0800 (Oxygen On - Provider: Herber Brown LPN)0807 (Oxygen Off - Provider: Herber Brown LPN)1600 (Oxygen Off - Provider: Herber Brown LPN) 0000 (Oxygen On - Provider: Ricarda Mercer RN)0800 (Oxygen Off - Provider: Doreen Cordero LPN) pantoprazole (Protonix) tab 40 mg 40 mg, Oral, BID(AM/PM), First dose on Fri03/20/23 at 0900, Until Discontinued, This med should NOT be Crushed or Chewed 915 (Given - Provider: Daniel Alvarez RN)2031 (Given - Provider: Jaylin Ruano RN) 08 (Given - Provider: Herber Brown LPN)2039 (Given - Provider: Ricarda Mercer, FERNANDA) 08 (Given - Provider: Doreen Cordero LPN) potassium chloride ER tab 10 mEq 10 mEq, Oral, Daily(AM), First dose on Fri03/20/23 at 0900, Until Discontinued 913 (Given - Provider: Daniel Alvarez RN) 08 (Given - Provider: Herber Brown LPN) 08 (Given - Provider: Doreen Cordero LPN) predniSONE (Deltasone) tab 40 mg 40 mg, Oral, Daily(AM), First dose on [facility] 03/22/23 at 0900, Until Discontinued 824 (Given - Provider: Doreen Cordero LPN) Simvastatin (Zocor) tab 40 mg 40 mg, Oral, QPM-1999, First dose on Layne 03/20/23 at 2000, Until Discontinued 2031 (Given - Provider: Jaylin Ruano, RN) 2038 (Given - Provider: Ricarda Mercer, RN) sodium chloride 0.9 % flush peripheral nikky 3 mL 3 mL, IV Push, QSHIFT, First dose on Layne 03/20/23 at 0000, Until Discontinued, Do not flush if lock, PICC, or central line not in place; IV infusing or unable to flush. 0000 (Not Given - Provider: Blas Rodriguez LPN - Reason: Parameter(s) Not Met)0800 (Given - Provider: Daniel Alvarez RN)1600 (Given - Provider: Daniel Alvarez RN)2212 (Given - Provider: Jaylin Ruano, FERNANDA) 0800 (Given - Provider: Herber Brown LPN)1459 (Given - Provider: Herber Brown LPN) 0000 (Given - Provider: Ricarda Mercer, RN)0838 (Given - Provider: Doreen Cordero LPN) tamsulosin (Flomax) cap 0.8 mg 0.8 mg, Oral, Daily(AM), First dose on Layne 03/20/23 at 0900, Until Discontinued, Administer 30 min after meal. This med should NOT be Crushed or Chewed or opened! ORAL administration only!! 09 (Given - Provider: Daniel Alvarez RN) 08 (Given - Provider: Herber Brown LPN) 08 (Given - Provider: Doreen Cordero LPN) PRN Medication Order 03/20/2023 03/21/2023 03/22/2023 Acetaminophen (Tylenol) tab 650 mg 650 mg, Oral, Q6H PRN Pain, Mild, Fever >38C(100.5F), Headache, Starting on Fri03/19/23 at 2234, Until 03/22/23 at 1703, Maximum of 4 grams (4000 mg) per day. Albuterol Sulfate (Proventil) (2.5 MG/3ML) 0.083% inhalation solution 2.5 mg 2.5 mg, Nebulizer, Q4H PRN Dyspnea, Starting on Fri03/19/23 at 2307, Until 03/22/23 at 1703 Baclofen (Lioresal) tab 10 mg 10 mg, Oral, TID PRN Muscle spasms, Starting on Fri03/20/23 at 0117, Until 03/22/23 at 1703 house antacid (Mi-Acid II) oral susp 15 mL 15 mL, Oral, Q4H PRN Indigestion, Starting on Fri03/19/23 at 2234, Until 03/22/23 at 1703, SHAKE WELL Ibuprofen (Motrin) tab 400 mg 400 mg, Oral, Q8H PRN Pain, Moderate, Starting on Fri03/21/23 at 1543, Until 03/22/23 at 1703 1652 (Given - Provider: Herber Brown LPN) melatonin tab 3 mg 3 mg, Oral, HS PRN Insomnia, Starting on Fri03/19/23 at 2234, Until 03/22/23 at 1703 Menthol ([place]) cough drop 1 Lozenge 1 Lozenge, Oral, Q2H PRN Sore throat, Starting on Fri03/20/23 at 2025, Until 03/22/23 at 1703, 203 (Given - Provider: Jaylin Ruano RN) ondansetron (Zofran) inj 4 mg 4 mg, IV Push, Q6H PRN Nausea, Starting on Fri03/19/23 at 2234, Until 03/22/23 at 1703 sodium chloride 0.9 % flush/inj 3 mL 3 mL, IV Push, PRN Other, Line Patency, Starting on Fri03/19/23 at 2233, Until 03/22/23 at 1703, Do not flush if lock, PICC, or central line not in place, IV infusing or unable to flush tiZANidine (Zanaflex) 4 mg tab 4 mg, Oral, Q8H PRN Muscle spasms, Starting on Layne 03/20/23 at 0118, Until 03/22/23 at 1703 traMADol (Ultram) tab 25 mg 25 mg, Oral, Q6H PRN Pain, Severe, pain intensity 7 to 10/10, Starting on Layne 03/20/23 at 0115, Until 03/22/23 at 1703 1408 (Given - Provider: James Williamson LPN) documented in this encounter Additional Health Concerns Infection Onset Date Last Indicated Resolved Time Respiratory Rule-Out 03/19/2023 03/19/2023 023 9:59 PM EDT COVID-19 Rule-Out 03/19/2023 03/19/2023 03/19/2023 9:59 PM EDT documented as of this encounter Advance Directives Documents on File Type Date Recorded Patient Protective Signal Operations Supervisor Expl anation Advance Directives and Living Will 02/22/2023 ADVANCE DIRECTIVE / LIVING WILL Power of Head Of Product 02/22/2023 POWER OF A TTORNEY Latest Code Status on File Code Status Date Activated Date Inactivated Comments Full Code 03/19/2023 10:35 PM 03/22/2023 5:08 PM This order reflects the patients wishes and were consensually agreed upon. Question Answer Comments Discussion of Advance Directives occurred with: Patient Does the patient have a Living Will? No Does the patient have Health Care Power of Head Of Product? No Code Status History Code Status Date [...] the patient have Health Care Power of Head Of Product? No Care Teams Senior Cost Analyst Relationship Specialty Start Date End Date James Madsen PA-C [address] [id number] [place] [id number] PCP - General Physician Paste Thinner 02/24/22 documented as of this encounter
--- OUTSIDE RECORDS SUMMARY | 2023-08-24 16:53 | External Medical Summary | Summary of Care ---
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 If not, please send back to [facility]. documented in this encounter Plan of Treatment Upcoming Encounters Date Type Specialty Care Team Description 04/17/2023 Laboratory Laboratory [facility] [address] [address] [place] [address] 04/17/2023 Office Visit Neurological Surgery Francois Henry PA-C [address] [place] [address] Health Maintenance Due Date Last Done Comments [...] this encounter Medical Devices Implanted Type Area Engagement Specialist Device Identifier Shelf Expiration Date Model / Serial / Lot Stent 7x40 Precise [id number] - [id number] Implanted:Qty : 1 on 02/27/2023 by Bennett Quevedo MD at [facility] Left: Carotid [employer] [place] [id number] 12/23/2023 [id number] / / [id number] documented as of this encounter Visit Diagnoses Diagnosis Encounter for long-term current use of medication- Primary documented in this encounter Advance Directives Documents on File Type Date Recorded Patient Bun Panner Expl anation Advance Directives and Living Will 02/22/2023 ADVANCE DIRECTIVE / LIVING WILL Power of Evaluation Assistant 02/22/2023 POWER OF A TTORNEY Latest Code Status on File Code Status Date Activated Date Inactivated Comments Full Code 03/19/2023 10:35 PM 03/22/2023 5:08 PM This order reflects the patients wishes and were consensually agreed upon. Question Answer Comments Discussion of Advance Directives occurred with: Patient Does the patient have a Living Will? No Does the patient have Health Care Power of Evaluation Assistant? No Code Status History Code Status Date [...] the patient have Health Care Power of Evaluation Assistant? No Care Teams Letterer Relationship Specialty Start Date End Date James Madsen PA-C [address] [address] [place] [id number] PCP - General Physician Wearing Apparel Shaker 02/24/22 documented as of this encounter
--- OUTSIDE RECORDS SUMMARY | 2023-08-24 16:53 | External Medical Summary | Summary of Care ---
Author Name Unknown Organization [facility] Address [address] [place] [address] Phone [phone] Care Team Providers Care Block Mechanic Name Role Phone James Madsen PA-C Primary Care Provider + Reason for Visit * Reason Onset Date Comments Appointment 03/25/2023 Encounter Details Date Type Department Care Team Description 03/25/2023 Telephone Pulmonary Medicine, [facility] [address], [place] [id number] Services, [facility] [address] [place] [address] Appointment Allergies Active Allergy Reactions Severity Noted Date Comments Tiotropium Other (Please comment) High 12/20/2019 "Couldn't catch his breath" documented as of this encounter (statuses as of 03/25/2023) Medications Medication Sig Dispensed Refills Start Date [...] as of this encounter (statuses as of 03/25/2023) Active Problems Problem Noted Date COPD with [...] as of this encounter (statuses as of 03/25/2023) Resolved Problems Problem Noted Date Resolved Date 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 Dyslipidemia, goal to be determined 01/12/2003 08/07/2009 Overview: Per Lipid Taxonomy. documented as of this encounter (statuses as of 03/25/2023) Immunizations Name Administration Dates Next Due COVID-19 [...] encounter Miscellaneous Notes * Telephone Encounter - [facility] [place] - 03/25/2023 8:37 AM EDT Spoke to pt's and in the back ground. They don't want the appt. They are upset that pthas all these appts. Tried scheduling the same day. Pt doesn't want to schedule. 03/25/23 @ 8:38 AM documented in this encounter Plan of Treatment Upcoming Encounters Date Type Specialty Care Team Description 04/01/2023 Pharmacy Neurology [facility], Pharmacist Neurology [address] [place] [address] 04/17/2023 Laboratory Laboratory [facility], Lab [address] [address] [place] [address] 04/17/2023 Office Visit Neurological Surgery Francois Henry PA-C [address], [place] [phone] Health Maintenance Due Date Last Done Comments DISCUSS TOBACCO CESSATION (REFER TO SMARTSET #6087) 1940 Depression Screening, Annual for Pts 12 [...] this encounter Medical Devices Implanted Type Area Registrar Museum Device Identifier Shelf Expiration Date Model / Serial / Lot Stent 7x40 Precise [id number] - [id number] Implanted:Qty : 1 on 02/27/2023 by [place] Quevedo [place] [facility] [place]: Carotid C[employer]IS [employer] [place] [id number] 12/23/2023 [id number] / / [id number] documented as of this encounter Advance Directives Documents on File Type Date Recorded Patient Registered Dietician Expl anation Advance Directives and Living Will 02/22/2023 ADVANCE DIRECTIVE / LIVING WILL Power of Manufacturing Inspector 02/22/2023 POWER OF A TTORNEY Latest Code Status on File Code Status Date Activated Date Inactivated Comments Full Code 03/19/2023 10:35 PM 03/22/2023 5:08 PM This order reflects the patients wishes and were consensually agreed upon. Question Answer Comments Discussion of Advance Directives occurred with: Patient Does the patient have a Living Will? No Does the patient have Health Care Power of Manufacturing Inspector? No Code Status History Code Status [...] the patient have Health Care Power of Manufacturing Inspector? No Care Teams Block Mechanic Relationship Specialty Start Date End Date James Madsen PA-C [address] [address] [place] [phone] PCP - General Physician Derrick Builder 02/24/22 documented as of this encounter
--- OUTSIDE RECORDS SUMMARY | 2023-08-24 16:53 | External Medical Summary ---
Author Name Unknown Address Unknown Organization K1G:[facility] - [address] [place] [id number] Laboratory Report Ordering Provider Test Date Status MARGE ESCALANTE 03/21/2023 11:50:27 Final Observation Date Value Abnormality Reference (Units ) Status Glucose Point of Care 03/21/2023 11:50:27 120 70-120 (mg/dL) Final Performing Location [facility] - [address] [facility] [id number]
--- OUTSIDE RECORDS SUMMARY | 2023-08-24 16:53 | External Medical Summary | Summary of Care ---
Author Name Unknown Organization [facility] Address [address] [place] [address] Phone [phone] Care Team Providers Care Project Finance Analyst Name Role Phone James Madsen PA-C Primary Care Provider + Reason for Visit * Reason Onset Date Comments Referral Requested by Specialist 04/08/2023 [facility] referral request Encounter Details Date Type Department Care Team Description 04/08/2023 Telephone [facility], [place] [address] [place] [address] James Madsen PA-C [address] [address] Referral Requested by Specialist ([facility] refe... Allergies Active Allergy Reactions Severity Noted Date Comments Tiotropium Other (Please comment) High 12/20/2019 "Couldn't catch his breath" documented as of this encounter (statuses as of 04/08/2023) Medications Medication Sig Dispensed Refills Start Date [...] as of this encounter (statuses as of 04/08/2023) Active Problems Problem Noted Date COPD with [...] myocardial infarct 03/16/2009 Overview: Modified by [facility] [place] Protocol #5. 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 Dyslipidemia, goal to be determined 01/12/2003 08/07/2009 Overview: Per Lipid Taxonomy. documented as of this encounter (statuses as of 04/08/2023) Immunizations Name Administration Dates Next Due COVID-19 [...] Notes * Telephone Encounter - Neuro Referral [facility] - 04/08/2023 3:41 PM EDT Patient with upcoming neurology appointment. Please FAX referral order documented in this encounter Plan of Treatment Upcoming Encounters Date Type Specialty Care Team Description 04/09/2023 Pharmacy Neurology [facility], Pharmacist Neurology [address] [place] [address] 04/17/2023 Laboratory Laboratory [facility], Lab B1a [address] [place] [address] 04/17/2023 Office Visit Neurological Surgery Francois Henry PA-C [address] [place], [place] [phone] Health Maintenance Due Date Last Done Comments DISCUSS TOBACCO CESSATION (REFER TO SMARTSET #0641) 1940 Depression Screening, Annual for Pts 12 [...] this encounter Medical Devices Implanted Type Area Community Relations Advisor Device Identifier Shelf Expiration Date Model / Serial / Lot Stent 7x40 Precise [id number] - [id number] Implanted:Qty : 1 on 02/27/2023 [place] Queved[place] [facility] [place] Carotid [employer] [facility] [id number] 12/23/2023 [id number] / / [id number] documented as of this encounter Advance Directives Documents on File Type Date Recorded Patient Certified Court Interpreter Expl anation Advance Directives and Living Will 02/22/2023 ADVANCE DIRECTIVE / LIVING WILL Power of Audio Experience Expert 02/22/2023 POWER OF A TTORNEY Latest Code Status on File Code Status Date Activated Date Inactivated Comments Full Code 03/19/2023 10:35 PM 03/22/2023 5:08 PM This order reflects the patients wishes and were consensually agreed upon. Question Answer Comments Discussion of Advance Directives occurred with: Patient Does the patient have a Living Will? No Does the patient have Health Care Power of Audio Experience Expert? No Code Status History Code Status Date [...] the patient have Health Care Power of Audio Experience Expert? No Care Teams Project Finance Analyst Relationship Specialty Start Date End Date Jamse Madsen PA-C [address] [address] [place] [address] PCP - General Physician Print Finishing Worker 02/24/22 documented as of this encounter
--- OUTSIDE RECORDS SUMMARY | 2023-08-24 16:53 | External Medical Summary | Summary of Care ---
Author Name Unknown Organization [facility] Address [address] [place] [address] Phone [phone] Care Team Providers Care Community Health Counselor Name Role Phone James Madsen PA-C Primary Care Provider + Reason for Visit * Reason Comments Left Message Encounter Details Date Type Department Care Team Description 04/09/2023 Pharmacy Neurology, [place] [address] [place] [address] [place], Pharmacist Neurology [address] [place] [address] Stenosis of left internal carotid [...] aneurysm without ruptur e 06/19/2021 Atherosclerosis of [place] of right lower extremity with [...] myocardial infarct 03/16/2009 Overview: Modified by [facility] [place] Protocol #5. GERD (gastroesophageal reflux disease) 0 01/12/2003 GENERAL OSTEOARTHROSIS 01/12/2003 Major depression, single episode 003 Tobacco use disorder 01/12/2003 Seizure disorder 09/21/2002 BPH (benign prostatic hyperplasia) Chronic neck pain documented as of this encounter (statuses as of 04/09/2023) Resolved Problems Problem Noted Date Resolved Date F/u for non Q wave myocardial infarction 003 03/16/2009 Overview: Modified by [facility] [place] Protocol #5. Dyslipidemia, goal to be determined [...] of this encounter Progress Notes * MARYANN Delgadillo Tech - 04/09/2023 11:40 AM EDT Att 2 LVM requesting patient complete [facility] labs earlier than next week. Follow up documented in this encounter Plan of Treatment Upcoming Encounters Date Type Specialty Care Team Description 04/17/2023 Pharmacy Neurology [facility], Pharmacist Neurology [address] [place] [address] 04/17/2023 Laboratory Laboratory [facility], Lab B1a [address] [place], [place] [phone] 04/17/2023 Office Visit Neurological Surgery Francois Henry PA-C [address] [place], [place] [phone] Health Maintenance Due Date Last Done Comments DISCUSS TOBACCO CESSATION (REFER TO SMARTSET #3479) 1940 Depression Screening, Annual for Pts 12 [...] this encounter Medical Devices Implanted Type Area Brick Machine Operator Device Identifier Shelf Expiration Date Model / Serial / Lot Stent 7x40 Precise [id number] - [id number] Implanted:Qty : 1 on 02/27/2023 [place] Que[place] [facility] [place] Carotid [employer] [facility] [place] [id number] 12/23/2023 [id number] / / [id number] documented as of this encounter Visit Diagnoses Diagnosis 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 Question Answer Comments Discussion of Advance Directives occurred with: Patient Does the patient have a Living Will? No Does the patient have Health Care Power of Rotary Screen Printing Machine Operator? No Code Status History Code Status [...] the patient have Health Care Power of Rotary Screen Printing Machine Operator? No Care Teams Community Health Counselor Relationship Specialty Start Date End Date James Madsen PA-C [address] [address] [place] [address] PCP - General Physician Honey Producer 02/24/22 documented as of this encounter
--- OUTSIDE RECORDS SUMMARY | 2023-08-24 16:53 | External Medical Summary | Summary of Care ---
Author Name Unknown Organization [facility] Address [address] [place] [address] Phone [phone] Care Team Providers Care Frozen Meat Cutter Name Role Phone James Madsen PA-C Primary Care Provider + Reason for Visit * Reason Comments Dosage Adjustment Via Phone (anticoag Cl inic) Encounter Details Date Type Department Care Team Description 03/24/2023 Pharmacy Neurology, [place] [address] [place] [address] [place], Pharmacist Neurology [address] [place] [address] Encounter for long-term current use of medication* Allergies Active Allergy Reactions Severity Noted Date Comments Tiotropium Other (Please comment) High 12/20/2019 "Couldn't catch his breath" documented as of this encounter (statuses as of 03/24/2023) Medications Medication Sig Dispensed Refills Start Date [...] as of this encounter (statuses as of 03/24/2023) Active Problems Problem Noted Date COPD with [...] 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 GERD (gastroesophageal reflux disease) 0 01/12/2003 GENERAL OSTEOARTHROSIS 01/12/2003 Major depression, single episode 003 Tobacco use disorder 01/12/2003 Seizure disorder 09/21/2002 BPH (benign prostatic hyperplasia) Chronic neck pain documented as of this encounter (statuses as of 03/24/2023) Resolved Problems Problem Noted Date Resolved Date F/u for non Q wave myocardial infarction 003 03/16/2009 Overview: Modified by Acute [place] Protocol #5. Dyslipidemia, goal to be determined 01/12/2003 08/07/2009 Overview: Per Lipid Taxonomy. documented as of this encounter (statuses as of 03/24/2023) Immunizations Name Administration Dates Next Due COVID-19 [...] of this encounter Progress Notes * Kristen Menjivar media manager - 03/24/2023 2:11 PM EDT Patient Phone Numbers Attempt 1 Spoke with patient , appointment date/time scheduled. Follow up in 1 week(s) for results. Thank you, Kristen Menjivar Elevator Operator 03/24/2023,2:12 PM * Georgia Ashford RPh - 03/24/2023 1:17 PM EDT Patient discharged from [facility] 03/22 for COPD exacerbation. Please contact patient to reschedule lab appointment for this week if possible. Georgia Ashford RPh Clinical Pharmacist, Neurology Medication Therapy Disease Management 03/24/2023 1:18 PM documented in this encounter Plan of Treatment Upcoming Encounters Date Type Specialty Care Team Description 04/01/2023 Pharmacy Neurology [facility], Pharmacist Neurology [address] [place] [address] 04/01/2023 Laboratory Laboratory Laith Lock[place] B1a [address] [place] [facility] [place] [place] [address] 04/01/2023 Office Visit Neurological Surgery Marleny Coleman PA-C [address] [place] [address] Health Maintenance Due Date Last Done Comments DISCUSS TOBACCO CESSATION (REFER TO SMARTSET #6474) 1940 Depression Screening, Annual for Pts 12 [...] this encounter Medical Devices Implanted Type Area Supervisor Hand Workers Device Identifier Shelf Expiration Date Model / Serial / Lot Stent 7x40 Precise [id number] - [id number] Implanted:Qty : 1 on 02/27/2023 by Bennett Quevedo MD at [facility] Left: Carotid [employer] [place] [id number] 12/23/2023 [id number] / / [id number] documented as of this encounter Visit Diagnoses Diagnosis Encounter for long-term current use of medication- Primary documented in this encounter Advance Directives Documents on File Type Date Recorded Patient Foam Rubber Mixer Expl anation Advance Directives and Living Will 02/22/2023 ADVANCE DIRECTIVE / LIVING WILL Power of Unemployment Examiner 02/22/2023 POWER OF A TTORNEY Latest Code Status on File Code Status Date Activated Date Inactivated Comments Full Code 03/19/2023 10:35 PM 03/22/2023 5:08 PM This order reflects the patients wishes and were consensually agreed upon. Question Answer Comments Discussion of Advance Directives occurred with: Patient Does the patient have a Living Will? No Does the patient have Health Care Power of Unemployment Examiner? No Code Status History Code Status Date [...] the patient have Health Care Power of Unemployment Examiner? No Care Teams Frozen Meat Cutter Relationship Specialty Start Date End Date James Madsen PA-C [address] [address] [place] [address] PCP - General Physician Baler Operator 02/24/22 documented as of this encounter
--- OUTSIDE RECORDS SUMMARY | 2023-08-24 16:53 | External Medical Summary | Summary of Care ---
Author Name Unknown Organization [facility] Address [address] [place] [address] Phone [phone] Care Team Providers Care Inclusion Special Education Teacher Name Role Phone James Madsen PA-C Primary Care Provider + Reason for Visit * Reason Onset Date Comments Follow Up 03/26/2023 Encounter Details Date Type Department Care Team Description 03/26/2023 Telephone [facility] Discharge Follow-Up [address] [place] [address] Elena Thomas, FERNANDA Follow Up Allergies Active Allergy Reactions Severity Noted Date Comments Tiotropium Other (Please comment) High 12/20/2019 "Couldn't catch his breath" documented as of this encounter (statuses as of 03/26/2023) Medications Medication Sig Dispensed Refills Start Date [...] as of this encounter (statuses as of 03/26/2023) Active Problems Problem Noted Date COPD with [...] 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 Dyslipidemia, goal to be determined 01/12/2003 08/07/2009 Overview: Per Lipid Taxonomy. documented as of this encounter (statuses as of 03/26/2023) Immunizations Name Administration Dates Next Due COVID-19 [...] encounter Miscellaneous Notes * Telephone Encounter - Elena Thomas RN - 03/26/2023 12:27 PM EDT DISCHARGE FOLLOW-UP PHONE CALL [facility] Discharge Follow-Up [address] [facility] [address] Name: James Ibarra Date: 03/26/2023 Time: 12:28 PM Acute Discharge Follow-Up Call Call Attempt: first Call Result: left voicemail Respondent: answering machine Language Preference: Omani Discharge Call Checklist Before Commencing: A-Acknowledge - Good Morning/Afternoon I-Introduce - I am from [facility]. D-Duration - I have a few questions about your recent stay with us. It will take about 5 minutes ofyour time. Is that OK? E-Explanation - We want to be sure we are providing excellent service and quality of care, so we talk to our patients about their stay. We particularly want to be sure that you have all the information and support you need since leaving the hospital. Instructions: Complete AIDE process with patient and score yes when completed. Introduction: N/A Discharge Instructions Covered: N/A Did we go over your discharge instructions with you before you left the hospital? Do you have a copy? Lets's review together. Instructions: If no, "I will get your discharge instructions and review what you need to know." If yes, "Can you tell me your main health problem?" "Are the instructions easy to read and understand?" Comments: none Condition Improving: N/A Do you feel that your condition has improved since you left the hospital? Instructions: If no, "Do you have new or worsening symptoms?" "Do you have a fever?" (Arrange for follow-up with Primary Care Physician or other as needed.) If yes, "Do you have any additional concerns about your condition?" Comments: none Watch for problems: N/A Do you know what problems to watch for and what you should do if they occur? Instructions: If NO, review problem/danger signs. If yes, "What signs are you watching for?" "What should you do if they occur?" Comments: none Medication List: N/A Do you have a list of your medications? Can you get the list, so we can review? Instructions: If no, arrange for medication list and follow-up call. If yes, "Do you have any problems with the medications?" "What is your schedule?" "Have any medications been added or taken off?" Comments: none Prescription Filled: N/A Have you had all your prescriptions filled? Instructions: If no, "What is preventing you from getting that done?" "What can we do to get those filled?" (Make arrangements for follow-up if needed.) If yes, "Do you have any questions on how to take them?" Comments: none Medications Taken: N/A Have we explained how important it is for you to take the medications as prescribed? Instructions: If yes or no, "It is very important for you to take the medications as prescribed." "Will you make sure that happens?" Comments: none Medications Understood: N/A Have all of your questions about your medications been answered? Instructions: If no, "What questions do you have?" (Note questions in comments and arrange for follow-up with pharmacy if needed.) Comments: none Follow-up Doctors Appointments: N/A Have your follow-up appointments been scheduled? Instructions: If no, "How can we make that happen?" Do you have what you need in order to make the appointments?" If yes, "When are your appointments scheduled?" "Do you have transportation?" Comments: none Pain: N/A Are you comfortable? Is your pain (if any) under control? Instructions: If no, "What are you doing to handle that?" (Review compliance with prescribed pain medications, arrange follow-up with physician if needed.) If yes, Are you able to eat, drink, and move around your house? Comments: none Thank You: N/A Thank you for taking the time with me today. Is there anything I can do for you before we finish? If yes, note any requests that you carried out. Instructions: "If you received a survey, please return it within 4 weeks, as your opinions are important to us." Score yes, when completed. Comments: none Follow-Up Completed Notes: N/A documented in this encounter Plan of Treatment Upcoming Encounters Date Type Specialty Care Team Description 04/01/2023 Pharmacy Neurology [employer] [facility], Pharmacist Neurology [address] [place], [place] [phone] 04/17/2023 Laboratory Laboratory [facility], Lab B1a [address] [place], [place] [phone] 04/17/2023 Office Visit Neurological Surgery Francois Henry PA-C [address] [place] [address] Health Maintenance Due Date Last Done Comments DISCUSS TOBACCO CESSATION (REFER TO SMARTSET #3583) 1940 Depression Screening, Annual for Pts 12 [...] encounter Medical Devices Implanted Type Area Director Of Strategy & Mobile Device Identifier Shelf Expiration Date Model / Serial / Lot Stent 7x40 Precise [id number] - [id number] Implanted:Qty : 1 on 02/27/2023 by Bennett Quevedo MD at OR [place] Left: Carotid [employer] [place] [id number] 12/23/2023 [id number] / / [id number] documented as of this encounter Advance Directives Documents on File Type Date Recorded Patient Draw Bench Operator Expl anation Advance Directives and Living Will 02/22/2023 ADVANCE DIRECTIVE / LIVING WILL Power of Machine Greaser 02/22/2023 POWER OF A TTORNEY Latest Code Status on File Code Status Date Activated Date Inactivated Comments Full Code 03/19/2023 10:35 PM 03/22/2023 5:08 PM This order reflects the patients wishes and were consensually agreed upon. Question Answer Comments Discussion of Advance Directives occurred with: Patient Does the patient have a Living Will? No Does the patient have Health Care Power of Machine Greaser? No Code Status History Code Status Date [...] the patient have Health Care Power of Machine Greaser? No Care Teams Inclusion Special Education Teacher Relationship Specialty Start Date End Date James Madsen PA-C [address] [address] [place] [address] PCP - General Physician Cashier Assistant 02/24/22 documented as of this encounter
--- OUTSIDE RECORDS SUMMARY | 2023-08-24 16:54 | External Medical Summary ---
Author Name Unknown Address Unknown Organization K1G:LABORATORY [facility] - [address] [place] [address] [place] [id number] Laboratory Report Ordering Provider Test Date Status MIRIAN OCDY 03/19/2023 21:01:00 Fin al Observation Date Value Abnormality Reference (Units ) Status Troponin T 03/19/2023 21:01:00 49 Above high normal < =22 (ng/L) Final Performing Location LABORATORY [facility] - [address] [place] [address] [place] [address]
--- OUTSIDE RECORDS SUMMARY | 2023-08-24 16:54 | External Medical Summary ---
Author Name Unknown Address Unknown Organization K1G:LABORATORY [facility] - [address] [facility] [address] Laboratory Report Ordering Provider Test Date Status BATOOL SIEGEL 03/20/2023 05:25:00 Final Warfarin Therapy
INR: 2 .0-3.0 conventional anticoagulation
INR: 2.5- 3.5 high intensity anticoagulation Observation Date Value Abnormality Reference (Units ) Status PT 03/20/2023 05:25:00 12.7 11.6-15.2 (seconds) Final INR 03/20/2023 05:25:00 0.9 0.8-1.2 Final Performing Location LABORATORY [facility] - [address] [facility] [address]
--- OUTSIDE RECORDS SUMMARY | 2023-08-24 16:54 | External Medical Summary ---
Author Name Unknown Address Unknown Organization K1G:LABORATORY [facility] - [address] [place] [address] [place] [id number] Laboratory Report Ordering Provider Test Date Status MIRIAN CODY 03/19/2023 21:00:00 Fin al Observation Date Value Abnormality Reference (Units ) Status Lactic Acid, Whole Blood 03/19/2023 21:00:00 1.4 0.4-2.0 (mmol/L) Final Performing Location LABORATORY [facility] - [address] [place] [address] [place] [address]
--- OUTSIDE RECORDS SUMMARY | 2023-08-24 16:54 | External Medical Summary | Summary of Care ---
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 0 Active Albuterol Sulfate (VENTOLIN HFA) 108 [...] mouth daily. 14 Each 0 11/06/2019 Active Budesonide-Formoter ol Fumarate 160-4.5 MCG/ACT Inhalation Aerosol [...] 26, 2022. 30 Patch 1 02/26/2022 Active traMADol HCl 50 MG Oral Tablet (Ultram) Take by mouth 0.5 Tablets every 6 hours as needed for Pain, Severe (pain intensity 7 to 10/10). 12 Tablet 0 02/26/2022 Active oxyCODONE HCl 5 MG Oral Tablet (Oxy IR) Take 1 Tablet by mouth every 4 hours as needed for Pain, Severe. 10 Tablet 0 08/23/2022 Active Sucralfate 1 GM/10ML Oral Suspension (Carafate) Take 10 mL by mouth in the morning and 10 mL at noon and 10 mL in the evening and 10 mL before bedtime. 420 mL 0 12/23/2022 Active tiZANidine HCl 4 MG Oral Capsule Take [...] as of this encounter (statuses as of 03/10/2023) Active Problems Problem Noted Date Stenosis of left internal carotid artery with cerebral infarction 02/25/2023 Severe protein-energy malnutrition 02/21 Vitamin D deficiency 02/25/2022 Intractable low back pain 02/24/2022 Ambulatory dysfunction 02/24/2022 Closed compression fracture of L4 lumbar vertebra, initial encounter 02/24/2022 Pseudogout 11/05/2019 Calculus of kidney 02/19/2019 PUD (peptic ulcer disease) 08/25/2017 Overview: ruptured ulcer - needed clipped Prostatitis, acute 08/25/2011 Dyslipidemia, goal LDL below 100 009 Overview: Per Lipid Taxonomy. Old myocardial infarct 03/16/2009 Overview: Modified by Acute [place] Protocol #5. GERD (gastroesophageal reflux disease) 0 01/12/2003 GENERAL OSTEOARTHROSIS 01/12/2003 Major depression, single episode 003 Tobacco use disorder 01/12/2003 Convulsions 09/21/2002 BPH (benign prostatic hyperplasia) Chronic neck pain documented as of this encounter (statuses as of 03/10/2023) Resolved Problems Problem Noted Date Resolved Date F/u for non Q wave myocardial infarction 003 03/16/2009 Overview: Modified by Acute [place] Protocol #5. Dyslipidemia, goal to be determined 01/12/2003 08/07/2009 Overview: Per Lipid Taxonomy. documented as of this encounter (statuses as of 03/10/2023) Immunizations Name Administration Dates Next Due COVID-19 [...] (15 years old or older) No 02/23/20 23 Cognitive Status Response Date of Assessm ent Because of a physical, menta l, or emotional condition, do you have serious difficulty concentrating, remembering, or making decisions? (5 years old or older Yes 02/22/2023 documented as of this encounter Progress Notes * [place] - 03/10/2023 2:55 PM EDT Spoke with patient to schedule [facility] appointment for medication management. Appointment scheduled as noted below. 03/13/2023 @ 10 AM * Georgia Ashford RPh - 03/10/2023 9:40 AM EDT Called patient, no answer. Left VM for return call. Please contact patient to reschedule Georgia Ashford tamika Clinical Pharmacist, Neurology Medication Therapy Disease Management 03/10/2023 11:50 AM documented in this encounter Plan of Treatment Upcoming Encounters Date Type Specialty Care Team Description 03/13/2023 Telemedicine Neurology [facility], [facility] [address] [facility] [place] [id number] 04/02/2023 Office Visit Neurological Surgery Marleny Coleman PA-C [address] [facility] [place] [address] Health Maintenance Due Date Last Done Comments DISCUSS TOBACCO CESSATION (REFER TO SMARTSET #3835) 1940 Depression Screening, Annual for Pts 12 and Over 1951 DTaP,Tdap,and Td Vaccines (1 - Tdap) 1958 Zoster Vaccines (1 of 2) 1989 COVID-19 Vaccine (4 - Moderna series) 08/10/2021 06/15/2021, 11/03/2020, 10/06/2020 Influenza Vaccine (FLU shot) (#1) 2023 07/17/2022, 05/22/2022, 10/08/2021, Additional history exists Pneumococcal Vaccine: 65+ Years Completed 06/05/2020, 11/03/2014, [...] this encounter Medical Devices Implanted Type Area Manufacturer'S Representative Device Identifier Shelf Expiration Date Model / Serial / Lot Stent 7x40 Precise [id number] - [id number] Implanted:Qty : 1 on 02/27/2023 by Bennett Quevedo MD at [facility] Left: Carotid CORDIS [employer] DAKOTA [id number] 12/23/2023 [id number] / / [id number] documented as of this encounter Visit Diagnoses Diagnosis Encounter for long-term current use of medication- Primary 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 Question Answer Comments Discussion of Advance Directives occurred with: Not Discussed due to patient's condition Code Status History Code Status Date Activated Date Inactivated Comments Full Code 02/22/2023 2:53 PM 02/24/2023 11:25 [...] the patient have Health Care Power of Corral Boss? No Full Code 11/01/2019 5:41 AM 11/05/2019 8:10 PM This o rder reflects the patients wishes and were consensually agreed upon. Question Answer Comments Discussion of Advance Directives occurred with: Patient Does the patient have a Living Will? No Does the patient have Health Care Power of Corral Boss? No Care Teams Pipeline Executive Relationship Specialty Start Date End Date James Madsen PA-C [address] [address] [place] [id number] PCP - General Physician Financial Coordinator 02/24/22 documented as of this encounter
--- OUTSIDE RECORDS SUMMARY | 2023-08-24 16:54 | External Medical Summary | Summary of Care ---
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 GERD (gastroesophageal reflux disease) 0 01/12/2003 GENERAL OSTEOARTHROSIS 01/12/2003 Major depression, single episode 003 Tobacco use disorder 01/12/2003 Convulsions 09/21/2002 BPH (benign prostatic hyperplasia) Chronic neck pain documented as of this encounter (statuses as of 03/13/2023) Resolved Problems Problem Noted Date Resolved Date F/u for non Q wave myocardial infarction 003 03/16/2009 Overview: Modified by Acute [place] Protocol #5. Dyslipidemia, goal to be determined 01/12/2003 08/07/2009 Overview: Per Lipid Taxonomy. documented as of this encounter (statuses as of 03/13/2023) Immunizations Name Administration Dates Next Due COVID-19 [...] of this encounter Progress Notes * Georgia Ashford, [facility] - 03/13/2023 8:57 AM EDT Patient Phone Numbers After connecting to the patient via telephone, the patient was identified by name and date of . Patient was then informed that this was a telephone call only visit. The patient agreed to participate. Visit Disposition: Routine follow-up Total call duration was 9 minutes. New referral from Dr. Quevedo in neurosurgery for verify now lab monitoring. Patient s/p left carotid angioplasty and stenting with Dr. Quevedo on 02/27/23. It appears that plavix was previously prescribed for other cardiac/vascular indications over the past few years. However, most recent note from 02/11/23 outside OV with Cardiology that patient was able to stop plavix from cardiac perspective but could defer to PCP for ongoing management with historyof CVA? Called and spoke with patient's Thania. Discussed verify now labs and role of pharmacy in monitoring levels. Patient was continued on Plavix 75 mg daily then reduced to 37.5 mg daily after 02/28/23while inpatient based off of PRU monitoring. Confirmed patient has been taking Plavix 37.5 mg and ASA 81 mg daily. Patient aware to monitor for any signs of unusual bruising or bleeding. Verify now labs must be drawn at either [facility], [facility], or [facility]. Closest location for patient to obtain verify now labs is [place]. Scheduled verify now labs in 1 weeks on 03/20/23 in [place]. Lab orders placed for VerifyNow Aspirin levels x12 and P2Y12 VerifyNow x12. 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) Every Week for 12 Occurrences starting 03/13/2023 until 03/13/2024 P2Y12 INHIBITOR REACTIVITY (CLOPIDOGREL), VERIFYNOW Lab STAT 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) Every Week for 12 Occurrences starting 03/13/2023 until 03/13/2024 Health Maintenance Due Date Last Done Comments DISCUSS TOBACCO CESSATION (REFER TO SMARTSET #6422) 1939 Depression Screening, Annual for Pts 12 [...] this encounter Medical Devices Implanted Type Area Ocean Freight Agent Device Identifier Shelf Expiration Date Model / Serial / Lot Stent 7x40 Precise [id number] - [id number] Implanted:Qty : 1 on 02/27/2023 by Bennett Quevedo MD at [place] [facility] Left: Carotid CORDIS [employer] [place] [id number] 12/23/2023 [id number] / / [id number] documented as of this encounter Visit Diagnoses Diagnosis Encounter for long-term current use of medication- Primary 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 No Full Code 11/01/2019 5:41 AM 11/05/2019 8:10 PM This o rder reflects the patients wishes and were consensually agreed upon. Question Answer Comments Discussion of Advance Directives occurred with: Patient Does the patient have a Living Will? No Does the patient have Health Care Power of Deck Cadet? No Care Teams Deputy Jailer Relationship Specialty Start Date End Date James Madsen PA-C [address] [address] [place] [id number] PCP - General Physician Typist 02/24/22 documented as of this encounter
--- OUTSIDE RECORDS SUMMARY | 2023-08-24 16:54 | External Medical Summary ---
Author Name Unknown Address Unknown Organization K1G:LABORATORY [facility] - [address] [place] [phone] Laboratory Report Ordering Provider Test Date Status BATOOL SIEGEL 03/20/2023 05:25:00 Final Observation Date Value Abnormality Reference (Units ) Status Magnesium 03/20/2023 05:25:00 2.1 1.5-2.6 (m g/dL) Final Performing Location LABORATORY [facility] - [address] [facility] [id number]
--- OUTSIDE RECORDS SUMMARY | 2023-08-24 16:54 | External Medical Summary ---
Author Name Unknown Address Unknown Organization K1G:LABORATORY [facility] - [address] [place] [phone] Laboratory Report Ordering Provider Test Date Status BATOOL SIEGEL 03/20/2023 05:25:00 Final Observation Date Value Abnormality Reference (Units ) Status Troponin T 03/20/2023 05:25:00 47 Above high normal < =22 (ng/L) Final Performing Location LABORATORY [facility] - [address] [place] [address] [place] [phone]
--- OUTSIDE RECORDS SUMMARY | 2023-08-24 16:54 | External Medical Summary | Summary of Care ---
Author Name Unknown Organization [facility] Address [address] [place] [address] Phone [phone] Care Team Providers Care Product/Industry Consultant Name Role Phone James Madsen PA-C Primary Care Provider + Reason for Visit * Reason Comments Dosage Adjustment Via Phone (anticoag Cl inic) Encounter Details Date Type Department Care Team Description 03/20/2023 Pharmacy Neurology, [place] [address] [place] [address] [place], Pharmacist Neurology [address] [place] [address] Encounter for long-term current use of medication* Allergies Active Allergy Reactions Severity Noted Date Comments Tiotropium Other (Please comment) High 12/20/2019 "Couldn't catch his breath" documented as of this encounter (statuses as of 03/20/2023) Medications Medication Sig Dispensed Refills Start Date End Date Status TEGRETOL 200 MG PO TABSIndications:C onvulsions (HCC) one pill three times daily 90 6 10/04/2008 Suspended Additional Information furosemide (LASIX) 20 MG Tablet Take 1 Tablet by mouth daily as needed (chest pressure / weight gain). 5 03/09/2018 Suspended KLOR-CON 10 10 MEQ TBCR Take 1 Tablet by mouth in the morning. 3 03/09/2018 Suspended simvastatin (ZOCOR) 40 MG Tablet Take 1 Tablet by mouth every evening. 5 03/09/2018 Suspended finasteride (PROSCAR) 5 MG Tablet Take 1 Tablet by mouth in the morning. 0 Suspended metoprolol succinate XL (TOPROL XL) 25 MG TB24 Take 0.5 Tablets by mouth in the morning. 0 Suspended Aspirin 81 MG Oral Tablet Delayed Release Take 1 Tablet by mouth at bedtime. 0 Suspended Albuterol Sulfate (VENTOLIN HFA) 108 (90 Base) MCG/ACT AERS Inhale 2 Puffs by mouth every 4 hours as needed for Shortness of Breath or Wheezing. 0 Suspended pantoprazole (PROTONIX) 40 MG TBEC Take 1 Tablet by mouth in the morning and 1 Tablet before bedtime. 0 Suspended acetaminophen (TYLENOL) 325 MG Tablet Take 2 Tabs by mouth every 6 hours as needed for Pain. 30 Tab 0 11/05/2019 Suspended Additional Information docusate sodium (COLACE) 100 MG Capsule Take 1 Cap by mouth 2 times a day. 10 Cap 0 11/05/2019 Suspended Additional Information polyethylene glycol 3350 (MIRALAX) packet Take 1 Packet by mouth daily. 14 Each 0 11/06/2019 Suspended Additional Information Patient not taking.Reported on 03/20/2023 Budesonide-Formot kyle Fumarate 160-4.5 MCG/ACT Inhalation Aerosol (Symbicort) Inhale 2 Puffs by mouth in the morning and 2 Puffs before bedtime. 0 08/06/2021 Suspended Diclofenac Sodium 1 % External Gel (Voltaren) APPLY 1 G TOPICALLY 3 TIMES A DAY 0 08/28/2021 Suspended Famotidine 20 MG Oral Tablet (Pepcid) TAKE 1 TABLET BY MOUTH DAILY BEFORE A MEAL 0 11/12/2021 Suspended Fluticasone Propionate 50 MCG/ACT Nasal Suspension (Flonase) SPRAY 2 SPRAYS INTO EACH NOSTRIL EVERY DAY 0 11/09/2021 Suspended Folic Acid 1 MG Oral Tablet Take 1 Tablet by mouth in the morning. 0 11/09/2021 Suspended Mirtazapine 30 MG Oral Tablet (Remeron) Take 1 Tablet by mouth at bedtime. 0 10/08/2021 Suspended Tamsulosin HCl 0.4 MG Oral Capsule (Flomax) Take 2 Capsules by mouth in the morning. 0 11/12/2021 Suspended GetGo Rolling Walker To assist with proper walking 1 Each 0 02/25/2022 Suspended Additional Information Calcium Carbonate-Vitamin D 500-200 MG-UNIT Oral Tablet Take by mouth 1 Tablet at noon AND 1 Tablet in the evening. Do not start before February 26, 2022. 60 Tablet 11 02/26/2022 Suspended Additional Information Vitamin D3 25 MCG (1000 UT) Oral Tablet (Vitamin D3) Take by mouth 2 Tablets in the morning. Do not start before February 26, 2022. 30 Tablet 11 02/26/2022 Suspended Additional Information Lidocaine 4 % External Patch (Aspercreme) Place topically on the skin 1 Patch in the morning. Do not start before February 26, 2022. 30 Patch 1 02/26/2022 Suspended Additional Information Patient not taking.Reported on 03/20/2023 traMADol HCl 50 MG Oral Tablet (Ultram) Take by mouth 0.5 Tablets every 6 hours as needed for Pain, Severe (pain intensity 7 to 10/10). 12 Tablet 0 02/26/2022 Suspended Additional Information oxyCODONE HCl 5 MG Oral Tablet (Oxy IR) Take 1 Tablet by mouth every 4 hours as needed for Pain, Severe. 10 Tablet 0 08/23/2022 Suspended Additional Information Patient not taking.Reported on 03/19/2023 Sucralfate 1 GM/10ML Oral Suspension (Carafate) Take 10 mL by mouth in the morning and 10 mL at noon and 10 mL in the evening and 10 mL before bedtime. 420 mL 0 12/23/2022 Suspended Additional Information Patient not taking.Reported on 03/20/2023 tiZANidine HCl 4 MG Oral Capsule Take 1 Capsule by mouth 3 times a day as needed for Muscle spasms. 0 Suspended Loratadine 10 MG Oral Capsule Take 1 Capsule by mouth in the morning. 0 Suspended Baclofen 10 MG Oral Tablet (Lioresal) Take 1 Tablet by mouth 3 times a day as needed for Muscle spasms. 90 Tablet 0 02/21/2023 03/23/2023 Suspended Additional Information Midodrine HCl 5 MG Oral Tablet (Proamatine) Take 1 Tablet by mouth three times per day (morning, noon, & before bedtime) 90 Tablet 3 03/01/2023 06/29/2023 Suspended Additional Information Classic 28-0.8 MG Oral Tablet Take 1 Tablet by mouth every morning. 30 Tablet 3 03/01/2023 06/29/2023 Suspended Additional Information Clopidogrel Bisulfate 75 MG Oral Tablet (pLAVix) Take 0.5 (one-half) tablet by mouth in the morning. 30 Tablet 3 03/02/2023 Suspended Additional Information oxygen IN GAS Use 2 L/min(Oxygen) as directed at bedtime. 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 Dyslipidemia, goal to be determined 01/12/2003 08/07/2009 Overview: Per Lipid Taxonomy. documented as of this encounter (statuses as of 03/20/2023) Immunizations Name Administration Dates Next Due COVID-19 [...] Progress Notes * Georgia Ashford RPh - 03/20/2023 11:38 AM EDT Patient on MTM schedule for VerifyNow lab monitoring. Upon chart review, patient is currently admitted for suspected COPD exacerbation. Will follow-up upon patient discharge to reschedule labs. Georgia Ashford RPh Clinical Pharmacist, Neurology Medication Therapy Disease Management 03/20/2023 11:39 AM documented in this encounter Plan of Treatment Upcoming Encounters Date Type Specialty Care Team Description 03/24/2023 Pharmacy Neurology [place], Pharmacist Neurology [address] [place], [place] [phone] 04/01/2023 Office Visit Neurological Surgery Marleny Coleman, [facility] [address] [place] [address] Health Maintenance Due Date Last Done Comments DISCUSS TOBACCO CESSATION (REFER TO SMARTSET #5634) 1940 Depression Screening, Annual for Pts 12 [...] this encounter Medical Devices Implanted Type Area Epic Ambulatory Specialists Device Identifier Shelf Expiration Date Model / Serial / Lot Stent 7x40 Precise [id number] - [id number] Implanted:Qty : 1 on 02/27/2023 by Bennett Quevedo MD at [facility] Left: Carotid CORDIS US DAKOTA [id number] 12/23/2023 [id number] / / [id number] documented as of this encounter Visit Diagnoses Diagnosis Encounter for long-term current use of medication- Primary documented in this encounter Advance Directives Documents on File Type Date Recorded Patient Records And Information Manager Expl anation Advance Directives and Living Will 02/22/2023 ADVANCE DIRECTIVE / LIVING WILL Power of Hvac Technician Residential 02/22/2023 POWER OF A TTORNEY Latest Code Status on File Code Status Date Activated Date Inactivated Comments Full Code 03/19/2023 10:35 PM This orde r reflects the patients wishes and were consensually agreed upon. Question Answer Comments Discussion of Advance Directives occurred with: Patient Does the patient have a Living Will? No Does the patient have Health Care Power of Hvac Technician Residential? No Code Status History Code Status Date [...] the patient have Health Care Power of Hvac Technician Residential? No Care Teams Product/Industry Consultant Relationship Specialty Start Date End Date James Madsen PA-C [address] [address] [place] [phone] PCP - General Physician Cashier Receptionist 02/24/22 documented as of this encounter
--- OUTSIDE RECORDS SUMMARY | 2023-08-24 16:54 | External Medical Summary ---
Author Name Unknown Address Unknown Organization K1G:LABORATORY [facility] - [address] [facility] [place] [id number] Laboratory Report Ordering Provider Test Date Status MIRIAN CODY 03/19/2023 21:01:00 Fin al Observation Date Value Abnormality Reference (Units ) Status BUN 03/19/2023 21:01:00 17 6-20 (mg/dL) Final Creatinine 03/19/2023 21:01:00 0.8 0.6-1.2 (mg/dL) Final Glomerular filtration rate/1.73 sq M.predicted [Volume Rate/Area] in Serum, Plasma or Blood by Creatinine-based formula (CKD-EPI) 03/19/2023 21:01:00 89 >=60 (mL/min) Final eGFR is calculated based on the CKD-EPI 2020 equation SODIUM 03/19/2023 21:01:00 134 Below low normal 135 -146 (mmol/L) Final Potassium 03/19/2023 21:01:00 3.9 3.5-5.1 (m mol/L) Final Cl 03/19/2023 21:01:00 95 Below low normal 98- 107 (mmol/L) Final CO2 03/19/2023 21:01:00 28 22-32 (mmo l/L) Final Anion gap 03/19/2023 21:01:00 11 7-15 (mmol /L) Final Glucose 03/19/2023 21:01:00 109 70-120 (mg /dL) Final Albumin 03/19/2023 21:01:00 3.9 3.8-5.0 (g /dL) Final AST (Aspartate aminotransferase) 03/19/2023 21:01:00 21 10-50 (U/L) Fin al Alk Phos 03/19/2023 21:01:00 157 Above high normal 35 -130 (U/L) Final Bilirubin, Total 03/19/2023 21:01:00 0.3 <=1 .2 (mg/dL) Final Calcium 03/19/2023 21:01:00 9.4 8.4-10.2 ( mg/dL) Final Protein 03/19/2023 21:01:00 6.7 6.0-8.3 (g /dL) Final ALT (Alanine aminotransferase) 03/19/2023 21:01:00 19 10-50 (U/L) Jason triplett Performing Location LABORATORY [facility] - [address] [place] [phone]
--- OUTSIDE RECORDS SUMMARY | 2023-08-24 16:54 | External Medical Summary | Summary of Care ---
Author Name Unknown Organization [facility] Address [address] [place] [address] Phone [phone] Care Team Providers Care Diamond Assorter Name Role Phone James Madsen PA-C Primary Care Provider + Reason for Visit * Reason Comments Dosage Adjustment Via Phone (anticoag Cl inic) Encounter Details Date Type Department Care Team Description 03/10/2023 Telemedicine Neurology, [place] [address] [place] [address] [place], Pharmacist Neurology [address] [place] [address] Encounter for long-term current use [...] Progress Notes * Georgia Ashford RPh - 03/10/2023 9:40 AM EDT Called patient, no answer. Left for return call. Please contact patient to reschedule Georgia Ashford RPh Clinical Pharmacist, Neurology Medication Therapy Disease Management 03/10/2023 11:50 AM documented in this encounter Plan of Treatment Upcoming Encounters Date Type Specialty Care Team Description 04/02/2023 Office Visit Neurological Surgery Marleny Coleman PA-C [address] [facility] [place] [phone] Health Maintenance Due Date Last Done Comments DISCUSS TOBACCO CESSATION (REFER TO SMARTSET #1914) 1940 Depression Screening, Annual for Pts 12 [...] this encounter Medical Devices Implanted Type Area Side Panel Hanger Device Identifier Shelf Expiration Date Model / Serial / Lot Stent 7x40 Precise [id number] - [id number] Implanted:Qty : 1 on 02/27/2023 by Bennett Quevedo [place] [facility]: Carotid CORDIS [employer] DAOKTA [id number] 12/23/2023 [id number] / / [id number] documented as of this encounter Visit Diagnoses Diagnosis Encounter for long-term current use of medication- Primary 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) documented in this encounter Advance Directives Documents on File Type Date Recorded Patient Nurse Quality Expl anation Advance Directives and Living Will 02/22/2023 ADVANCE DIRECTIVE / LIVING WILL Power of Facing Cutting Machine Operator 02/22/2023 POWER OF A TTORNEY [...] the patient have Health Care Power of Facing Cutting Machine Operator? No Full Code 11/01/2019 5:41 AM 11/05/2019 8:10 PM This o rder reflects the patients wishes and were consensually agreed upon. Question Answer Comments Discussion of Advance Directives occurred with: Patient Does the patient have a Living Will? No Does the patient have Health Care Power of Facing Cutting Machine Operator? No Care Teams Diamond Assorter Relationship Specialty Start Date End Date James Madsen PA-C [address] [place] [address] [place] [address] PCP - General Physician Tower Climber 02/24/22 documented as of this encounter
--- OUTSIDE RECORDS SUMMARY | 2023-08-24 16:54 | External Medical Summary ---
Author Name Unknown Address Unknown Organization K1G:LABORATORY [facility] - [address] [place] [id number] Laboratory Report Ordering Provider Test Date Status MIRIAN CODY 03/19/2023 21:01:00 Fin al Observation Date Value Abnormality Reference (Units ) Status WBC, Total 03/19/2023 21:01:00 7.42 4.00-10.8 0 (K/uL) Final RBC 03/19/2023 21:01:00 2.96 4.50-5.25 (M/uL) Final Hemoglobin 03/19/2023 21:01:00 10.4 Below low normal 14 .0-16.8 (g/dL) Final HCT 03/19/2023 21:01:00 31.8 Below low normal 40. 0-48.4 (%) Final MCV 03/19/2023 21:01:00 107.4 82.0-99.5 (fL) Final MCH 03/19/2023 21:01:00 35.1 27.0-34.0 (pg) Final MCHC 03/19/2023 21:01:00 32.7 32.0-36.0 (g/dL) Final RDW 03/19/2023 21:01:00 14.7 11.5-15.5 (%) Final Platelets 03/19/2023 21:01:00 358 140-400 (K /uL) Final MPV 03/19/2023 21:01:00 10.1 6.6-11.1 ( fL) Final Performing Location LAB[facility]ATORY [facility] - [address] [place] [phone]
--- OUTSIDE RECORDS SUMMARY | 2023-08-24 16:54 | External Medical Summary ---
Author Name Unknown Address Unknown Organization K1G:LABORATORY [facility] - [address] [place] [phone] Laboratory Report Ordering Provider Test Date Status BATOOL SIEGEL 03/20/2023 05:25:00 Final Observation Date Value Abnormality Reference (Units ) Status WBC, Total 03/20/2023 05:25:00 4.61 4.00-10.8 0 (K/uL) Final RBC 03/20/2023 05:25:00 2.84 4.50-5.25 (M/uL) Final Hemoglobin 03/20/2023 05:25:00 9.9 Below low normal 14 .0-16.8 (g/dL) Final HCT 03/20/2023 05:25:00 30.2 Below low normal 40. 0-48.4 (%) Final MCV 03/20/2023 05:25:00 106.3 82.0-99.5 (fL) Final MCH 03/20/2023 05:25:00 34.9 27.0-34.0 (pg) Final MCHC 03/20/2023 05:25:00 32.8 32.0-36.0 (g/dL) Final RDW 03/20/2023 05:25:00 14.5 11.5-15.5 (%) Final Platelets 03/20/2023 05:25:00 341 140-400 (K /uL) Final MPV 03/20/2023 05:25:00 10.5 6.6-11.1 ( fL) Final Performing Location LABORATORY [facility] - [address] [place] [phone]
--- OUTSIDE RECORDS SUMMARY | 2023-08-24 16:54 | External Medical Summary ---
Author Name Unknown Address Unknown Organization K1G:LABORATORY [facility] - [address] [facility] [place] [phone] Laboratory Report Ordering Provider Test Date Status MIRIAN CODY 03/19/2023 21:00:00 Fin al Observation Date Value Abnormality Reference (Units ) Status Body temperature 03/19/2023 21:00:00 37.0 (C) Final pH of Venous blood 03/19/2023 21:00:00 7.374 7.320-7.430 (units) Final Carbon dioxide [Partial pressure] in Venous blood 03/19/2023 21:00:00 57.7 40.0-60.0 (mmHg) Final Oxygen [Partial pressure] in Venous blood 03/19/2023 21:00:00 23.3 Below low normal 25.0-50.0 (mmHg) Final Base excess, Capillary 03/19/2023 21:00:00 7.5 Above high normal -2.0-2.0 (mmol/L) Final Hemoglobin [Mass/volume] in Blood by Oximetry 03/19/2023 21:00:00 7.7 Below low normal 14.0-16.8 (g/dL) Final Oxyhemoglobin, Venous (FO2HB) 03/19/2023 21:00:00 35.1 Below low normal 40.0-85.0 (% total Hgb) Final Carboxyhemoglobin 03/19/2023 21:00:00 2.0 Above high normal <=1.5 (% total Hgb) Final Smokers: 0-9.0 % Methemoglobin 03/19/2023 21:00:00 1.1 <= 1.5 (% total Hgb) Final Deoxyhemoglobin/Hemoglo bin.total in Venous blood 03/19/2023 21:00:00 61.8 (% total Hgb) Final Oxygen content in Venous blood 03/19/2023 21:00:00 3.8 Below low normal 7.0-18.0 (%vol) F inal Bicarbonate, Venous, POC (i-STAT) 03/19/2023 21:00:00 33.6 Above high normal 23.0-31.0 (mmol/L) Final Performing Location LABORATORY [facility] - [facility] [phone]
--- OUTSIDE RECORDS SUMMARY | 2023-08-24 16:54 | External Medical Summary ---
Author Name Unknown Address Unknown Organization K1G:LABORATORY [facility] - [address] [place] [phone] Laboratory Report Ordering Provider Test Date Status BATOOL SIEGEL 03/19/2023 22:05:00 Final Observation Date Value Abnormality Reference (Units ) Status Magnesium 03/19/2023 22:05:00 2.1 1.5-2.6 (m g/dL) Final Performing Location LABORATORY [facility] - [address] [facility] [phone]
--- OUTSIDE RECORDS SUMMARY | 2023-08-24 16:54 | External Medical Summary ---
Author Name Unknown Address Unknown Organization K1G:LABORATORY [facility] - [facility] [place] [address] Laboratory Report Ordering Provider Test Date Status MIRIAN CODY 03/19/2023 21:01:00 Fin al Observation Date Value Abnormality Reference (Units ) Status SYNC LEUKOCYTES IN BLOOD BY AUTOMATED COUNT 03/19/2023 21:01:00 7.42 4.00-10.80 (K/uL) Final Neutrophils/100 leukocytes in Blood by Manual count 03/19/2023 21:01:00 67.0 40.0-75.0 (%) Final Lymphocytes/100 leukocytes in Blood by Manual count 03/19/2023 21:01:00 23.0 18.0-42.0 (%) Final Monocytes/100 leukocytes in Blood by Manual count 03/19/2023 21:01:00 7.0 1.0-11.0 (%) Final Eosinophils/100 leukocytes in Blood by Manual count 03/19/2023 21:01:00 2.0 0.0-6.0 (%) Final Myelocytes/100 leukocytes in Blood by Manual count 03/19/2023 21:01:00 1.0 Above high normal <=0.0 (%) Final Neutrophils [#/volume] in Blood by Manual count 03/19/2023 21:01:00 4.97 1.80-7.70 (K/uL) Final Lymphocytes [#/volume] in Blood by Manual count 03/19/2023 21:01:00 1.71 1.00-4.80 (K/uL) Final Monocytes [#/volume] in Blood by Manual count 03/19/2023 21:01:00 0.52 0.00-1.10 (K/uL) Final Eosinophils [#/volume] in Blood by Manual count 03/19/2023 21:01:00 0.15 0.00-0.70 (K/uL) Final Myelocytes [#/volume] in Blood by Manual count 03/19/2023 21:01:00 0.07 Above high normal <=0.00 (K/uL) Final Nucleated erythrocytes/100 leukocytes [Ratio] in Blood by Automated count 03/19/2023 21:01:00 Final Variant lymphocytes [Presence] in Blood by Light microscopy 03/19/2023 21:01:00 Present Abnormal None Seen Final Performing Location LABORATORY [facility] - [address] [facility] [phone]
--- OUTSIDE RECORDS SUMMARY | 2023-08-24 16:54 | External Medical Summary ---
Author Name Unknown Address Unknown Organization K01:LABORATORY [facility] [place] - [address] [facility] [place] [address] Laboratory Report Ordering Provider Test Date Status BATOOL SIEGEL 03/21/2023 10:23:28 Final Observation Date Value Abnormality Reference (Units) Status Bacteria identified in Unspecified specimen by Culture 03/21/2023 10:23:28 Specimen unsatisfactory. Not tested. Final Gram Stain 03/21/2023 10:23:28 Specimen contaminated with epithelial cells registered representative of oropharyngeal contamination. Further processing may yield potentially misleading results. Final Test: Culture, Respiratory, Lower, Aerobic
Specimen Source: Sputum
Specimen Type: Lower Respiratory
Specimen Date: 03/21/2023 10:23 AM
Result Date: 03/21/2023 10:31 PM
Result Status: Final result
Resulting Lab: [facility]ATORY [facility] [place]
[address]
[facility] [address]

CULTURE

Specimen unsatisfactory. Not tested.

STAIN

Specimen contaminated with epithelial cells registered representative of oropharyngeal
contamination. Further processing may yield potentially misleading results.

null Performing Location LABORATORY [facility] [place] - [address] [place] [id number]
--- OUTSIDE RECORDS SUMMARY | 2023-08-24 16:54 | External Medical Summary ---
Author Name Unknown Address Unknown Organization K1G:LABORATORY [address] [address] Laboratory Report Ordering Provider Test Date Status MIRIAN CODY 03/19/2023 21:01:00 Fin al Exclude Heart Failure: <300 pg/mL
Diagnose Heart Failure:
Age <50 yr: >450 pg/mL
50-75 yr: >900 pg/mL
>75 yr: >1800 pg/mL
GFR is 30-59 mL/min: >1200 pg/mL or Age- adjusted values
GFR <30 mL/min: do not use, not reliable

Prognostic threshold: 1000 pg/mL Observation Date Value Abnormality Reference (Units ) Status BNP, Pro-hormone 03/19/2023 21:01:00 247 <30 0 (pg/mL) Final Performing Location LABORATORY [facility] - [address] [place] [phone]
--- OUTSIDE RECORDS SUMMARY | 2023-08-24 16:54 | External Medical Summary | Summary of Care ---
Author Name Unknown Organization [facility] Address [address] [place] [address] Phone [phone] Care Team Providers Care Spiritual Care Coordinator Name Role Phone James Madsen PA-C Primary Care Provider + Reason for Visit * Reason Comments Dosage Adjustment Via Phone (anticoag Cl inic) Encounter Details Date Type Department Care Team Description 03/13/2023 Telemedicine Neurology, [place] [address] [place] [address] [place], Pharmacist Neurology [address] [place] [address] Encounter for long-term current use [...] Yes 02/22/2023 documented as of this encounter Plan of Treatment Upcoming Encounters Date Type Specialty Care Team Description 03/20/2023 Pharmacy Neurology [place], Pharmacist Neurology [address], [place] [phone] 03/20/2023 Laboratory Laboratory [place], Lab [facility] [address] [place], [place] [phone] 04/02/2023 Office Visit Neurological Surgery Marleny Coleman PA-C [address] [place] [address] Scheduled Orders Name Type Priority Associated Diagnoses [...] Comments DISCUSS TOBACCO CESSATION (REFER TO SMARTSET #2827) 1940 Depression Screening, Annual for Pts 12 [...] this encounter Medical Devices Implanted Type Area And Rescue Fire Fighter Crash Fire Device Identifier Shelf Expiration Date Model / Serial / Lot Stent 7x40 Precise [id number] - [id number] Implanted:Qty : 1 on 02/27/2023 by Bennett Quevedo MD at [place] [facility] [place] Left: Carotid CORDIS [employer] [id number] 12/23/2023 [id number] / / [id number] documented as of this encounter Visit Diagnoses Diagnosis Encounter for long-term current use of medication- Primary 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 No Full Code 11/01/2019 5:41 AM 11/05/2019 8:10 PM This o rder reflects the patients wishes and were consensually agreed upon. Question Answer Comments Discussion of Advance Directives occurred with: Patient Does the patient have a Living Will? No Does the patient have Health Care Power of Quality Eng? No Care Teams Spiritual Care Coordinator Relationship Specialty Start Date End Date James Madsen PA-C [address] [place] [address] [place] [address] PCP - General Physician Adzing And Boring Machine Operator 02/24/22 documented as of this encounter
--- OUTSIDE RECORDS SUMMARY | 2023-08-24 16:54 | External Medical Summary ---
Author Name Unknown Address Unknown Organization K1G:LABORATORY [facility] - [address] [facility] [place] [address] Laboratory Report Ordering Provider Test Date Status BATOOL SIEGEL 03/20/2023 05:25:00 Final Observation Date Value Abnormality Reference (Units ) Status BUN 03/20/2023 05:25:00 14 6-20 (mg/dL) Final Creatinine 03/20/2023 05:25:00 0.7 0.6-1.2 (mg/dL) Final Glomerular filtration rate/1.73 sq M.predicted [Volume Rate/Area] in Serum, Plasma or Blood by Creatinine-based formula (CKD-EPI) 03/20/2023 05:25:00 >90 >=60 (mL/min) Final eGFR is calculated based on the CKD-EPI 2020 equation SODIUM 03/20/2023 05:25:00 138 135-146 (m mol/L) Final Potassium 03/20/2023 05:25:00 3.5 3.5-5.1 (m mol/L) Final Cl 03/20/2023 05:25:00 97 Below low normal 98- 107 (mmol/L) Final CO2 03/20/2023 05:25:00 31 22-32 (mmo l/L) Final Anion gap 03/20/2023 05:25:00 10 7-15 (mmol /L) Final Glucose 03/20/2023 05:25:00 104 70-120 (mg /dL) Final Albumin 03/20/2023 05:25:00 3.7 Below low normal 3.8 -5.0 (g/dL) Final AST (Aspartate aminotransferase) 03/20/2023 05:25:00 20 10-50 (U/L) Fin al Alk Phos 03/20/2023 05:25:00 141 Above high normal 35 -130 (U/L) Final Bilirubin, Total 03/20/2023 05:25:00 0.3 <=1 .2 (mg/dL) Final Calcium 03/20/2023 05:25:00 9.1 8.4-10.2 ( mg/dL) Final Protein 03/20/2023 05:25:00 6.1 6.0-8.3 (g /dL) Final ALT (Alanine aminotransferase) 03/20/2023 05:25:00 17 10-50 (U/L) Jason triplett Performing Location LABORATORY [address] [address]
--- OUTSIDE RECORDS SUMMARY | 2023-08-24 16:54 | External Medical Summary | Summary of Care ---
Author Name Unknown Organization [facility] Address [address] [place] [address] Phone [phone] Care Team Providers Care Photo Optics Technician Name Role Phone Tamia Brock Primary Care Provider Reason for Visit * Reason Comments Short of Breath Encounter Details Date Type Department Care Team Description 12/04/2021 Convenient Care Visit [facility] [place] [facility] [address] [address] Deric Vo PA-C [address] [address] COPD exacerbation (HCC)* Allergies Active Allergy Reactions Severity Noted Date Comments Tiotropium High 12/20/2019 "Couldn't catch his breath" documented as of this encounter (statuses as of 03/15/2023) Medications Medication Sig Dispensed Refills Start Date End Date Status TEGRETOL 200 MG PO TABSIndications: Convulsions (HCC) one pill three times daily 90 6 9 Active furosemide (LASIX) 20 MG Tablet Take 1 Tablet by mouth daily as needed (chest pressure / weight gain). 5 8 Active KLOR-CON 10 10 MEQ TBCR Take 1 Tablet by mouth in the morning. 3 8 Active simvastatin (ZOCOR) 40 MG Tablet Take 1 Tablet by mouth every evening. 5 8 Active finasteride (PROSCAR) 5 MG Tablet Take [...] as needed for Pain. 30 Tab 0 0 Active docusate sodium (COLACE) 100 MG Capsule Take 1 Cap by mouth 2 times a day. 10 Cap 0 0 Active polyethylene glycol 3350 (MIRALAX) packet Take 1 Packet by mouth daily. 14 Each 0 0 Active Budesonide-Formo terol Fumarate 160-4.5 MCG/ACT Inhalation Aerosol (Symbicort) Inhale 2 Puffs by mouth in the morning and 2 Puffs before bedtime. 0 1 Active Diclofenac Sodium 1 % External Gel (Voltaren) APPLY 1 G TOPICALLY 3 TIMES A DAY 0 2 Active Famotidine 20 MG Oral Tablet (Pepcid) TAKE 1 TABLET BY MOUTH DAILY BEFORE A MEAL 0 2 Active Fluticasone Propionate 50 MCG/ACT Nasal Suspension (Flonase) SPRAY 2 SPRAYS INTO EACH NOSTRIL EVERY DAY 0 2 Active Folic Acid 1 MG Oral Tablet Take 1 Tablet by mouth in the morning. 0 2 Active Mirtazapine 30 MG Oral Tablet (Remeron) Take 1 Tablet by mouth at bedtime. 0 2 Active Tamsulosin HCl 0.4 MG Oral Capsule (Flomax) Take 2 Capsules by mouth in the morning. 0 2 Active lisinopril (PRINIVIL) 10 MG Tablet Take 0.5 Tablets by mouth in the morning. 3 8 023 Discontinued oxyCODONE HCl 5 MG immediate release tablet Take by mouth 5 mg every 8 hours as needed for Pain, Severe. 0 022 Discontinued bisacodyl (DULCOLAX) 10 MG suppository Administer 1 Suppository into the rectum daily as needed for Constipation. 12 Suppository 0 0 022 Discontinued senna (SENOKOT) Tablet Take 1 Tab by mouth daily. 30 Tab 1 0 022 Discontinued predniSONE (DELTASONE) 10 MG Tablet Take 4 tabs daily for 3 days, then 3 tabs daily for 3 days, then 2 tabs daily for 3 days and then 1 tab daily for 3 days. Then stop. 30 Tab 0 0 022 Discontinued(Re fill) Clopidogrel Bisulfate 75 MG Oral Tablet (pLAVix) Take 1 Tablet by mouth in the morning. 0 2 023 Discontinued tiZANidine HCl 4 MG Oral Tablet (Zanaflex) TAKE 1 TABLET BY MOUTH EVERY 8 HOURS NEEDED FOR MUSCLE SPASMS 0 2 022 Discontinued oxyCODONE HCl 5 MG Oral Tablet (Oxy IR) TAKE 1&1/2 TABLETS BY MOUTH EVERY 12 HOURS NEEDED MAX DAILY AMOUNT: 15 MG 0 2 022 Discontinued Doxycycline Hyclate 100 MG Oral CapsuleIndicatio ns:COPD exacerbation (HCC) Take by mouth 1 Capsule in the morning AND 1 Capsule before bedtime. Do all this for 7 days. Take for 7 days. 14 Capsule 0 2 022 predniSONE 10 MG Oral Tablet (Deltasone)Indic ations:COPD exacerbation (HCC) Take 4 tabs daily for 3 days, then 3 tabs daily for 3 days, then 2 tabs daily for 3 days and then 1 tab daily for 3 days. Then stop. 30 Tablet 0 2 022 Discontinued Hospital, Clinic, or Other Facility Administered Medication Ordered Dose Route Frequency Start Date End Date Status Dexamethasone Sodium Phosphate (Decadron) 10 MG/ML inj 10 mgIndications:COPD exacerbation (HCC) 10 mg IM ONCE 12/04/2021 12/04/2021 Ended documented as of this encounter (statuses as of 03/15/2023) Active Problems Problem Noted Date Pseudogout 11/05/2019 Calculus of kidney 02/19/2019 PUD [...] as of this encounter (statuses as of 03/15/2023) Resolved Problems Problem Noted Date Resolved Date F/u for non Q wave myocardial infarction 003 03/16/2009 Overview: Modified by Acute [place] Protocol #5. Dyslipidemia, goal to be determined 01/12/2003 08/07/2009 Overview: Per Lipid Taxonomy. documented as of this encounter (statuses as of 03/15/2023) Immunizations Name Administration Dates Next Due COVID-19 [...] small cigars Alcohol Use Standard Drinks/Week Comments Yes 0 (1 standard drink = 0.6 oz pur e alcohol) occas. Sex Assigned at Date Recorded Not on file Job Start Date Occupation Industry Not on file Not on file Not on file documented as of this encounter Last Filed Vital Signs Vital Sign Reading Time Taken Comments Blood Pressure 123/71 12/04/2021 9:08 AM EDT Pulse 87 12/04/2021 9:08 AM EDT Temperature 37.7 C (99.9 F) 12/04/2021 9:08 AM ED T Respiratory Rate 32 12/04/2021 9:08 AM EDT Oxygen Saturation 98% 12/04/2021 9:08 AM EDT Inhaled Oxygen Concentration - - Weight - - Height - - Body Mass Index - - documented in this encounter Functional Status Functional Status Response Date of Assess ment Are you deaf or do you have serious difficulty h earing? No 11/01/2019 Are you blind or do you have serious difficulty seeing, even when wearing glasses? No 11/01/2019 Do you have serious difficul ty walking or climbing stairs? (5 years old or older) No 11/01/2019 Do you have difficulty dress ing or bathing? (5 years old or older) No 11/01/2019 Because of a physical, menta l, or emotional condition, do you have difficulty doing errands alone such as visiting a doctor s office or shopping? (15 years old or older) No 11/01/19 20 Cognitive Status Response Date of Assessm ent Because of a physical, menta l, or emotional condition, do you have serious difficulty concentrating, remembering, or making decisions? (5 years old or older No 11/01/2019 documented as of this encounter Patient Instructions * Patient Instructions* Deric Vo PA-C - 12/04/2021 9:26 AM EDT Start the prednisone pills tomorrow morning. Take this with food in the morning. Take the doxycycline as prescribed. Take your furosemide twice daily instead of once daily for 3 days Call your doctor to schedule follow-up in 2-3 days Go to the ER with any worsening. Use your nebulizer up to every 4 hours if needed. documented in this encounter Progress Notes * Deric Vo PA-C - 12/04/2021 9:15 AM EDT SUBJECTIVE: CC: Chief Complaint Patient presents with Short of Breath HPI: James Ibarra is a 81 year old male who presents with shortness of breath. He was hospitalized with a COPD exacerbation at [facility] from 11/23 through 11/26. He was doing pretty well until yesterday. He is coughing up a lot of milky white phlegm. Minimal if any fevers, no chills or sweats. He denies chest pain. He uses his nebulizer four times daily. He is not currently on any steroids, just finished them. Not sure if he was on antibiotics. He notes that he does cough a little more when laying down, but has no increase in swelling. ? 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 Dyslipidemia, goal to be determined F/u for non Q wave myocardial infarction (HCC) 04/26 90% RCA, 90% LCx, both PTCA/Stent by [facility] Generalized osteoarthritis GERD (gastroesophageal reflux disease) Major depression, single episode Prostatitis, acute 2012 PUD (peptic ulcer disease) 2018 ruptured ulcer - needed clipped Tobacco use disorder PAST SURGICAL Hx: Past Surgical History: Procedure Laterality Date REVISE LUMBAR SPINE, ANTERIOR 1973 SOCIAL Hx: Social History Socioeconomic History Marital status: Spouse name: Not on file Number of children: Not on file Years of education: Not on file Highest education level: Not on file Occupational History Not on file Tobacco Use Smoking status: Current Every Day Smoker Packs/day: 1.50 Years: 40.00 Pack years: 60.00 Smokeless tobacco: Never Used Tobacco comment: Now down to 1/2 pack/day of small cigars Substance and Sexual Activity Alcohol use: Yes Comment: occas. 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 Social Determinants of Health Financial Resource Strain: Not on file Food Insecurity: Not on file Transportation Needs: Not on file Physical Activity: Not on file Stress: Not on file Social Connections: Not on file Intimate Partner Violence: Not on file Housing Stability: Not on file FAMILY Hx: Family History Problem Relation Age of Onset Lung Disorder Mother Heart Disorder Brother Valvular d/o, TAA Heart Disorder Brother Arrhythmia Heart Disorder Sister [place] in 40's CURRENT PROBLEM LIST: Patient Active Problem List Diagnosis Code Convulsions (HCC) R56.9 GERD (gastroesophageal reflux disease) K21.9 GENERAL OSTEOARTHROSIS M15.9 Major depression, single episode F32.9 Tobacco use disorder F17.200 OLD MYOCARDIAL INFARCT I25.2 DYSLIPIDEMIA, GOAL LDL BELOW 100 E78.5 PUD (peptic ulcer disease) K27.9 BPH (benign prostatic hyperplasia) N40.0 Chronic neck pain M54.2, G89.29 Prostatitis, acute N41.0 Pseudogout M11.20 MEDS & ALLERGIES: Current Outpatient Medications Medication Sig Dispense Refill TEGRETOL 200 MG PO TABS one pill three times daily 90 6 furosemide (LASIX) 20 MG Tablet Take 20 mg by mouth daily as needed (chest pressure / weight gain). 5 lisinopril (PRINIVIL) 10 MG Tablet Take 5 mg by mouth daily. 3 KLOR-CON 10 10 MEQ TBCR Take 10 mEq by mouth daily. 3 simvastatin (ZOCOR) 40 MG Tablet Take 40 mg by mouth every evening. 5 finasteride (PROSCAR) 5 MG Tablet Take 5 mg by mouth daily. metoprolol succinate XL (TOPROL XL) 25 MG TB24 Take 25 mg by mouth daily. Albuterol Sulfate (VENTOLIN HFA) 108 (90 Base) MCG/ACT AERS Inhale 2 Puffs by mouth every 4 hours as needed for Shortness of Breath or Wheezing. pantoprazole (PROTONIX) 40 MG TBEC Take 40 mg by mouth 2 times a day. acetaminophen (TYLENOL) 325 MG Tablet Take 2 Tabs by mouth every 6 hours as needed for Pain. 30Tab 0 bisacodyl (DULCOLAX) 10 MG suppository Administer 1 Suppository into the rectum daily as neededfor Constipation. 12 Suppository 0 Budesonide-Formoterol Fumarate 160-4.5 MCG/ACT Inhalation Aerosol (Symbicort) TAKE 2 PUFFS BY MOUTH 2 TIMES A DAY Clopidogrel Bisulfate 75 MG Oral Tablet (pLAVix) Take by mouth 75 mg in the morning. Diclofenac Sodium 1 % External Gel (Voltaren) APPLY 1 G TOPICALLY 3 TIMES A DAY Famotidine 20 MG Oral Tablet (Pepcid) TAKE 1 TABLET BY MOUTH DAILY BEFORE A MEAL Fluticasone Propionate 50 MCG/ACT Nasal Suspension (Flonase) SPRAY 2 SPRAYS INTO EACH NOSTRIL EVERY DAY Folic Acid 1 MG Oral Tablet Take by mouth 1 mg in the morning. Mirtazapine 30 MG Oral Tablet (Remeron) TAKE 1 TABLET BY MOUTH EVERYDAY AT BEDTIME tiZANidine HCl 4 MG Oral Tablet (Zanaflex) TAKE 1 TABLET BY MOUTH EVERY 8 HOURS NEEDED FOR MUSCLE SPASMS oxyCODONE HCl 5 MG Oral Tablet (Oxy IR) TAKE 1&1/2 TABLETS BY MOUTH EVERY 12 HOURS NEEDED MAX DAILY AMOUNT: 15 MG Doxycycline Hyclate 100 MG Oral Capsule Take by mouth 1 Capsule in the morning AND 1 Capsule before bedtime. Do all this for 7 days. Take for 7 days. 14 Capsule 0 predniSONE 10 MG Oral Tablet (Deltasone) Take 4 tabs daily for 3 days, then 3 tabs daily for 3 days, then 2 tabs daily for 3 days and then 1 tab daily for 3 days. Then stop. 30 Tablet 0 aspirin enteric coated (ASPIRIN 81) 81 MG TBEC Take 81 mg by mouth daily. (Patient not taking: Reported on 12/04/2021 ) oxyCODONE HCl 5 MG immediate release tablet Take 5 mg by mouth every 8 hours as needed for Pain. docusate sodium (COLACE) 100 MG Capsule Take 1 Cap by mouth 2 times a day. 10 Cap 0 polyethylene glycol 3350 (MIRALAX) packet Take 1 Packet by mouth daily. 14 Each 0 senna (SENOKOT) Tablet Take 1 Tab by mouth daily. 30 Tab 1 Tamsulosin HCl 0.4 MG Oral Capsule (Flomax) Take by mouth 0.8 mg in the morning. No current facility-administered medications for this visit. Review of patient's allergies indicates: Allergen Reactions Tiotropium "Couldn't catch his breath" Fluticasone Furoate-Vilanterol anaphylaxis OBJECTIVE: VS: BP 123/71 | Pulse 87 | Temp 37.7 C (99.9 F) | Resp 32 | SpO2 98% Wt Readings from Last 1 Encounters: 11/05/19 57.1 kg (125 lb 12.8 oz) General: alert, healthy and no distress Ears: External ears normal, Canals clear, TM's Normal Nose: no mucosal erythema, no mucosal edema, no purulent discharge Oropharynx: no exudate, no erythema, lips, buccal mucosa, and tongue normal and mucous membranes are moist Lymph: no palpable lymphadenopathy Heart: regular rate & rhythm, no murmurs and no gallops Lungs: chest symmetric with normal AP diameter, no chest deformities noted, no chest wall tenderness, decreased breath sounds, expiratory wheezes bilaterally, no rales or rhonchi, normal respiratory effort presently Extremities: less than 2 second capillary refill, no joint deformities, effusion, or inflammation, no edema ASSESSMENT/PLAN(s): COPD exacerbation (HCC) (Primary) - Doxycycline Hyclate 100 MG Oral Capsule; Take by mouth 1 Capsule in the morning AND 1 Capsule before bedtime. Do all this for 7 days. Take for 7 days. - predniSONE 10 MG Oral Tablet (Deltasone); Take 4 tabs daily for 3 days, then 3 tabs daily for 3 days, then 2 tabs daily for 3 days and then 1 tab daily for 3 days. Then stop. - Dexamethasone Sodium Phosphate (Decadron) 10 MG/ML inj 10 mg Patient to follow up with PCP if symptoms persist or worsen. Plan of care & discharge instructions were discussed, & the patient verbalized understanding. Deric Vo PA-C [facility] [address] [id number] documented in this encounter Nursing Notes * Lesly Lloyd RN - 12/04/2021 9:06 AM EDT Patient here for shortness of breath. Said he was admitted to [facility] on 11/23/21 for 3 days for breathing issues. "put me on a breathing machine". Sent home with breathing machine that he tookthru the night. documented in this encounter Plan of Treatment Upcoming Encounters Date Type Specialty Care Team Description 03/20/2023 Pharmacy [facility] [place] [address] [facility] [id number] 03/20/2023 Laboratory Laboratory [facility], Lab [facility] [address] [place], [place] [id number] 04/02/2023 Office Visit Neurological Surgery Marleny Coleman PA-C [address] [place] [address] Health Maintenance Due Date Last Done Comments DISCUSS TOBACCO CESSATION (REFER TO SMARTSET #1689) 1939 Depression Screening, Annual for Pts 12 [...] documented as of this encounter Medical Devices Not on filedocumented as of this encounter Visit Diagnoses Diagnosis COPD exacerbation (HCC)- Primary Obstructive chronic bronchitis with exacerbation documented in this encounter Administered Medications Inactive Administered Medications - up to 3 most recent administrations Medication Order MAR Action Action Date Dose Rate Site Dexamethasone Sodium Phosphate (Decadron) 10 MG/ML inj 10 mg 10 mg, Intramuscular, ONCE, On Fri12/04/21 at 1000, For 1 dose, Protect from Light Given 12/04/2021 9:30 AM EDT 10 mg Dorsogluteal Left documented in this encounter Advance Directives Documents on File Type Date Recorded Patient Arboreal Scientist Expl anation Advance Directives and Living Will 02/22/2023 ADVANCE DIRECTIVE / LIVING WILL Power of Portfolio Mgr 02/22/2023 POWER OF A TTORNEY Latest Code [...] the patient have Health Care Power of Portfolio Mgr? No Full Code 11/01/2019 5:41 AM 11/05/2019 8:10 PM This o rder reflects the patients wishes and were consensually agreed upon. Question Answer Comments Discussion of Advance Directives occurred with: Patient Does the patient have a Living Will? No Does the patient have Health Care Power of Portfolio Mgr? No Care Teams Photo Optics Technician Relationship Specialty Start Date End Date Tamia Brock, DO [address] [place] [address] PCP - General Family Medicine 03/25/18 02/23/22 documented as of this encounter
--- OUTSIDE RECORDS SUMMARY | 2023-08-24 16:54 | External Medical Summary ---
Author Name Unknown Address Unknown Organization K1G:LABORATORY [facility] - [address] [place] [address] [place] [id number] Laboratory Report Ordering Provider Test Date Status MIRIAN CODY 03/19/2023 20:55:07 Fin al ADMITTED patient Observation Date Value Abnormality Reference (Units ) Status Adenovirus DNA [Presence] in Nasopharynx by ZONIA with non-probe detection 03/19/2023 20:55:07 Negative Negative Final Human coronavirus 229E RNA [Presence] in Nasopharynx by ZONIA with non-probe detection 03/19/2023 20:55:07 Negative Negative Final Human coronavirus HKU1 RNA [Presence] in Nasopharynx by ZONIA with non-probe detection 03/19/2023 20:55:07 Negative Negative Final Human coronavirus NL63 RNA [Presence] in Nasopharynx by ZONIA with non-probe detection 03/19/2023 20:55:07 Negative Negative Final Human coronavirus OC43 RNA [Presence] in Nasopharynx by ZONIA with non-probe detection 03/19/2023 20:55:07 Negative Negative Final SARS-CoV-2 (COVID-19) RNA [Presence] in Nasopharynx by ZONIA with non-probe detection 03/19/2023 20:55:07 Negative Negative Final Human metapneumovirus RNA [Presence] in Nasopharynx by ZONIA with non-probe detection 03/19/2023 20:55:07 Negative Negative Final Rhinovirus+Enterovirus RNA [Presence] in Nasopharynx by ZONIA with non-probe detection 03/19/2023 20:55:07 Negative Negative Final Influenza virus A RNA [Presence] in Nasopharynx by ZONIA with non-probe detection 03/19/2023 20:55:07 Negative Negative Final Influenza virus B RNA [Presence] in Nasopharynx by ZONIA with non-probe detection 03/19/2023 20:55:07 Negative Negative Final Parainfluenza virus 1 RNA [Presence] in Nasopharynx by ZONIA with non-probe detection 03/19/2023 20:55:07 Negative Negative Final Parainfluenza virus 2 RNA [Presence] in Nasopharynx by ZONIA with non-probe detection 03/19/2023 20:55:07 Negative Negative Final Parainfluenza virus 3 RNA [Presence] in Nasopharynx by ZONIA with non-probe detection 03/19/2023 20:55:07 Negative Negative Final Parainfluenza virus 4 RNA [Presence] in Nasopharynx by ZONIA with non-probe detection 03/19/2023 20:55:07 Negative Negative Final Respiratory syncytial virus RNA [Presence] in Nasopharynx by ZONIA with non-probe detection 03/19/2023 20:55:07 Negative Negative Final Bordetella pertussis.pertussis toxin promoter region [Presence] in Nasopharynx by ZONIA with non-probe detection 03/19/2023 20:55:07 Negative Negative Final Chlamydophila pneumoniae DNA [Presence] in Nasopharynx by ZONIA with non-probe detection 03/19/2023 20:55:07 Negative Negative Final Mycoplasma pneumoniae DNA [Presence] in Nasopharynx by ZONIA with non-probe detection 03/19/2023 20:55:07 Negative Negative Final Bordetella parapertussis [id number] DNA [Presence] in Nasopharynx by ZONIA with non-probe detection 03/19/2023 20:55:07 Negative Negative Final
The primers that detect Rhinovirus may cross react with some Enterorviruses. The validation of bronchial specimens, tracheal aspirates, and throats for this assay was developed and performance characteristics determined by [facility]. The validation of alternate specimen types has not been cleared or approved by the U.S. Food and Drug Administration (FDA). It has been determined that such clearance or approval is not necessary. Performing Location [address] [address]
--- OUTSIDE RECORDS SUMMARY | 2023-08-24 16:54 | External Medical Summary ---
Author Name Unknown Address Unknown Organization K1G:LABORATORY [facility] - [address] [place] [id number] Laboratory Report Ordering Provider Test Date Status BATOOL SIEGEL 03/19/2023 22:05:00 Final Observation Date Value Abnormality Reference (Units ) Status Phosphate 03/19/2023 22:05:00 3.1 2.5-4.8 (m g/dL) Final Performing Location [facility]ATORY [facility] - [address] [facility] [place] [address]
--- OUTSIDE RECORDS SUMMARY | 2023-08-24 16:54 | External Medical Summary | Summary of Care ---
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 Dyslipidemia, goal to be determined [...] Specialty Care Team Description 03/24/2023 Pharmacy Neurology [place], Pharmacist Neurology [address] [place] [address] 04/01/2023 Office Visit Neurological Surgery Marleny Coleman, [place] [address] [place] [id number] Health Maintenance Due Date Last Done Comments DISCUSS TOBACCO CESSATION (REFER TO SMARTSET #2965) 1940 Depression Screening, Annual for Pts 12 [...] this encounter Medical Devices Implanted Type Area Planishing Press Operator Device Identifier Shelf Expiration Date Model / Serial / Lot Stent 7x40 Precise [id number] - [id number] Implanted:Qty : 1 on 02/27/2023 by Bennett Quevedo [place] [facility] [place]: Carotid CORDIS DAKOTA [id number] 12/23/2023 [id number] / / [id number] documented as of this encounter Visit Diagnoses Diagnosis Encounter for long-term current use of medication- Primary documented in this encounter Advance Directives Documents on File Type Date Recorded 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 Question Answer Comments Discussion of Advance Directives occurred with: Patient Does the patient have a Living Will? No Does the patient have Health Care Power of Photographer Motion Picture? No Code Status History Code Status Date [...] the patient have Health Care Power of Photographer Motion Picture? No Care Teams Mussel Opener Relationship Specialty Start Date End Date James Madsen PA-C [address] [place] [address] PCP - General Physician Energy Systems Engineer 02/24/22 documented as of this encounter
--- OUTSIDE RECORDS SUMMARY | 2023-08-24 16:54 | External Medical Summary ---
Author Name Unknown Address Unknown Organization K1G:LABORATORY [address] [address] Laboratory Report Ordering Provider Test Date Status MIRIAN CODY 03/19/2023 20:45:45 Fin al Observation Date Value Abnormality Reference (Units ) Status Bacteria identified in Unspecified specimen by Culture 03/19/2023 20:45:45 No growth Final Test: Culture, Blood (Site 2 )
Specimen Source: Blood, Venous
Specimen Type: Blood
Specimen Date: 03/19/2023 8:45 PM
Result Date: 03/24/2023 10:01 PM
Result Status: Final result
Resulting Lab: LAB[facility]ATORY [facility]
[address] [place] [address]
[facility] [address]

CULTURE

No growth

null Performing Location LABORATORY [address] [address]
--- OUTSIDE RECORDS SUMMARY | 2023-08-24 16:54 | External Medical Summary ---
Author Name Unknown Address Unknown Organization K1G:LABORATORY [facility] - [address] [place] [address] [place] [id number] Laboratory Report Ordering Provider Test Date Status MIRIAN CODY 03/19/2023 22:05:00 Fin al Observation Date Value Abnormality Reference (Units ) Status Troponin T 03/19/2023 22:05:00 47 Above high normal < =22 (ng/L) Final Performing Location LABORATORY [facility] - [address] [place] [address] [place] [id number]
--- OUTSIDE RECORDS SUMMARY | 2023-08-24 16:54 | External Medical Summary | Summary of Care ---
Author Name Unknown Organization [facility] Address [address] [place] [address] Phone [phone] Care Team Providers Care Senior Regulatory Affairs Specialist Name Role Phone James Madsen PA-C Primary Care Provider + Reason for Visit * Reason Onset Date Comments Appointment 03/18/2023 Encounter Details Date Type Department Care Team Description 03/18/2023 Telephone [facility] [place] [address] [place] [address] Marleny Coleman PA-C [address] [place] [address] Appointment Allergies Active Allergy Reactions Severity Noted Date Comments Tiotropium High 12/20/2019 "Couldn't catch his breath" documented as of this encounter (statuses as of 03/18/2023) Medications Medication Sig Dispensed Refills Start Date [...] as of this encounter (statuses as of 03/18/2023) Active Problems Problem Noted Date Stenosis of [...] myocardial infarct 03/16/2009 Overview: Modified by [facility] [place] Protocol #5. 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 Dyslipidemia, goal to be determined 01/12/2003 08/07/2009 Overview: Per Lipid Taxonomy. documented as of this encounter (statuses as of 03/18/2023) Immunizations Name Administration Dates Next Due COVID-19 [...] encounter Miscellaneous Notes * Telephone Encounter - ISIDRO Mancilla - 03/18/2023 12:26 PM EDT Called to reschedule 04/02 appointment at 2:20. Left message that new appointment is now one day earlier, 04/01 at 2:20. Said to call if that didn't work for him. documented in this encounter Plan of Treatment Upcoming Encounters Date Type Specialty Care Team Description 03/20/2023 Pharmacy Neurology [place], Pharmacist Neurology [address] [place] [address] 03/20/2023 Laboratory Laboratory [place], Lab [facility] [address] [place] [place] [address] 04/01/2023 Office Visit Neurological Surgery Marleny Coleman, TWIN [address] [place] [address] Health Maintenance Due Date Last Done Comments DISCUSS TOBACCO CESSATION (REFER TO SMARTSET #0982) 1940 Depression Screening, Annual for Pts 12 [...] this encounter Medical Devices Implanted Type Area Sign Wirer Device Identifier Shelf Expiration Date Model / Serial / Lot Stent 7x40 Precise [id number] - [id number] Implanted:Qty : 1 on 02/27/2023 by Bennett Quevedo MD at [place] [facility] [place] Left: Carotid [employer] [place] [id number] 12/23/2023 [id number] / / [id number] documented as of this encounter Advance Directives Documents on File Type Date Recorded 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 No Full Code 11/01/2019 5:41 AM 11/05/2019 8:10 PM This o rder reflects the patients wishes and were consensually agreed upon. Question Answer Comments Discussion of Advance Directives occurred with: Patient Does the patient have a Living Will? No Does the patient have Health Care Power of Special Education Kindergarten Teacher? No Care Teams Senior Regulatory Affairs Specialist Relationship Specialty Start Date End Date James Madsen PA-C [address] [address] [place] [id number] PCP - General Physician Delivery Driver/Customer Service 02/24/22 documented as of this encounter
--- OUTSIDE RECORDS SUMMARY | 2023-08-24 16:54 | External Medical Summary ---
Author Name Unknown Address Unknown Organization K1G:LABORATORY [address] [address] Laboratory Report Ordering Provider Test Date Status MIRIAN CODY 03/19/2023 21:01:00 Fin al Observation Date Value Abnormality Reference (Units ) Status Bacteria identified in Unspecified specimen by Culture 03/19/2023 21:01:00 No growth Final Test: Culture, Blood
[place] Source: Blood, Venous
Specimen Type: Blood
Specimen Date: 03/19/2023 9:01 PM
Result Date: 03/24/2023 10:01 PM
Result Status: Final result
Resulting Lab: LAB[facility]ATORY [facility]
[address] [place] [address]
[facility] [id number]

CULTURE

No growth

null Performing Location LABORATORY [facility] - [address] [place] [id number]
[2023-08-24] MEDS ORDERED: ACETAMINOPHEN 1,000 MG/100 ML VIAL IV STA (16:55)
[2023-08-24] MEDS ORDERED: fentaNYL citrate PF 100 MCG/2 ML VIAL IV STA ×2 (16:55→18:31)
--- OUTSIDE RECORDS SUMMARY | 2023-08-24 16:55 | External Medical Summary | Summary of Care ---
Author Name Unknown Organization [facility] Address [address] [place] [address] Phone [phone] Care Team Providers Care Hospitality Team Member Name Role Phone James Madsen PA-C Primary Care Provider + Reason for Visit * Reason Comments Dosage Adjustment Via Phone (anticoag Cl inic) * Evaluate & Treat - Unlimited Visits (Within 3 days (urgent)) - Pending Review Specialty Diagnoses / Procedures Referred By Contdidi t Referred To Contact Pharmacist / Pharmacy Diagnoses [facility] (current) use of antithrombotics/antipla telets Get Hollis MD [address] [place] [address] Referral ID Status Reason Start Date Expiration Date Visits Requested Visits Authorized [id number] Pending Review Specialty Services Required 02/28/2023 99 99 Encounter Details Date Type Department Care Team Description 03/03/2023 Pharmacy Neurology, [place] [address] [place] [address] [place], Pharmacist Neurology [address] [place] [address] Encounter for long-term current use of medication* Allergies Active Allergy Reactions Severity Noted Date Comments Tiotropium High 12/20/2019 "Couldn't catch his breath" documented as of this encounter (statuses as of 03/03/2023) Medications Medication Sig Dispensed Refills Start Date [...] by mouth in the morning. 0 Active diazePAM 5 MG Oral Tablet (Valium) Take 2 Tablets by mouth every 6 hours as needed for Muscle spasms for up to 15 days. 20 Tablet 0 02/21/2023 03/08/2023 Active Baclofen 10 MG Oral Tablet (Lioresal) [...] as of this encounter (statuses as of 03/03/2023) Active Problems Problem Noted Date Stenosis of [...] myocardial infarct 03/16/2009 Overview: Modified by [facility] [place] Protocol #5. 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 Dyslipidemia, goal to be determined 01/12/2003 08/07/2009 Overview: Per Lipid Taxonomy. documented as of this encounter (statuses as of 03/03/2023) Immunizations Name Administration Dates Next Due COVID-19 [...] of this encounter Progress Notes * Jessica Roland, [facility] - 03/03/2023 12:13 PM EDT Patient Phone Numbers New referral from Dr Quevedo in neurosurgery for verify now lab [...] PCP for ongoing management with historyof CVA? Patient was continued on 75 mg once daily then reduced to 37.5 mg once daily after 02/28/23 while inpatient and based off PRU monitoring. Sent request for education to be completed. Jessica Roland RPh, PharmD, BCCCP Clinical Pharmacist, Neurology Medication Therapy Disease Management documented in this encounter Plan of Treatment Scheduled Referrals Name Type Priority Associated Diagnoses Orde r Schedule PHARMACIST MEDS THERAPY MGMT REFERRAL OP Referral Within 3 days (urgent) [facility] (current) use of antithrombotics/anti platelets Ordered: 02/28/2023 Health Maintenance Due Date Last Done Comments DISCUSS TOBACCO CESSATION (REFER TO SMARTSET #329) 1940 Depression Screening, Annual for Pts 12 [...] this encounter Medical Devices Implanted Type Area Fruit Receiver Device Identifier Shelf Expiration Date Model / Serial / Lot Stent 7x40 Precise [id number] - [id number] Implanted:Qty : 1 on 02/27/2023 by Bennett Queevdo MD at [place] [facility] [place] Left: Carotid [facility] [facility] [place] [id number] 12/23/2023 [id number] / / [id number] documented as of this encounter Visit Diagnoses Diagnosis Encounter for long-term current use of medication- Primary documented in this encounter Advance Directives Documents on File Type Date Recorded Patient Application Development Consultant Expl anation Advance Directives and Living Will 02/22/2023 ADVANCE DIRECTIVE / LIVING WILL Power of Putty Worker 02/22/2023 POWER OF A TTORNEY Latest Code [...] the patient have Health Care Power of Putty Worker? No Full Code 11/01/2019 5:41 AM 11/05/2019 8:10 PM This o rder reflects the patients wishes and were consensually agreed upon. Question Answer Comments Discussion of Advance Directives occurred with: Patient Does the patient have a Living Will? No Does the patient have Health Care Power of Putty Worker? No Care Teams Hospitality Team Member Relationship Specialty Start Date End Date James Madsen PA-C [address] [place] [address] [place] [id number] PCP - General Physician Spa Associate 02/24/22 documented as of this encounter
--- OUTSIDE RECORDS SUMMARY | 2023-08-24 16:55 | External Medical Summary ---
Author Name Unknown Address Unknown Organization K01:LABORATORY [facility] - [address] [place] [address] Laboratory Report Ordering Provider Test Date Status JEAN-PIERRE NICKERSON 03/01/2023 05:20:00 Final Observation Date Value Abnormality Reference (Units ) Status BUN 03/01/2023 05:20:00 13 6-20 (mg/dL) Final Creatinine 03/01/2023 05:20:00 0.7 0.6-1.2 (mg/dL) Final Glomerular filtration rate/1.73 sq M.predicted [Volume Rate/Area] in Serum, Plasma or Blood by Creatinine-based formula (CKD-EPI) 03/01/2023 05:20:00 >90 >=60 (mL/min) Final eGFR is calculated based on the CKD-EPI 2020 equation SODIUM 03/01/2023 05:20:00 139 135-146 (m mol/L) Final Potassium 03/01/2023 05:20:00 3.6 3.5-5.1 (m mol/L) Final Cl 03/01/2023 05:20:00 108 Above high normal 98 -107 (mmol/L) Final CO2 03/01/2023 05:20:00 25 22-32 (mmo l/L) Final Anion gap 03/01/2023 05:20:00 6 Below low normal 7-1 5 (mmol/L) Final Glucose 03/01/2023 05:20:00 84 70-120 (mg /dL) Final Calcium 03/01/2023 05:20:00 7.8 Below low normal 8.4 -10.2 (mg/dL) Final Performing Location LABORATORY [facility] - [address] [place] [address]
--- OUTSIDE RECORDS SUMMARY | 2023-08-24 16:55 | External Medical Summary | Summary of Care ---
Author Name Unknown Organization [facility] Address [address] [place] [address] Phone [phone] Care Team Providers Care Craniologist Name Role Phone James Madsen PA-C Primary Care Provider + Reason for Referral * Evaluate & Treat - Unlimited Visits (Within 3 days (urgent)) - Pending Review Specialty Diagnoses / Procedures Referred By Nickie davis Referred To Contact Pharmacist / Pharmacy Diagnoses senior living (current) use of antithrombotics/antipla telets Get Hollis MD [address] [place] [address] Referral ID Status Reason Start Date Expiration Date Visits Requested Visits Authorized [id number] Pending Review Specialty Services Required 02/28/2023 99 99 Question Answer Referral Priority Within 3 days (urgent) Department: Specialist Specialty: Neuro Reason for Referral: Verify Now Comments Pharmacist Medication Therapy Management: Minimum frequency patient should be seen in person for medication management: as appropriate per clinical condition and patient status By my signature, I understand that my patient James Ibarra will have his medication therapy managed by the [facility] ([facility]) per established policies, procedures, and protocols. I also certify that this referral may serve as an initiation of service for the management of drug therapy in the above noted patient. [facility] providers will be responsible for scheduling patient visits, obtaining appropriate laboratory studies, and adjusting medication management therapy per patient's need, in addition to those roles spelled out in the clinic policy, procedures, and drug management protocols. I understand that the service provided by the [facility] is voluntary and have informed patient that they can refuse the service at their discretion. I am aware that the [facility] will provide me with a copy of the patient encounter via my rocket staff. I authorize the [facility] to carry out these activities on my behalf. I consider this program to be a necessary part of the patient's medical care. Get Hollis MD Discharge Order Reason for Visit * Auth/Cert Specialty Diagnoses / Procedures Referred By Contdidi t Referred To Contact Diagnoses Seizure (HCC) Confusion, Siezures Referral ID Status Reason Start Date Expiration Date Visits Re quested Visits Authorized [id number] Encounter Details Date Type Department Care Team Description 02/22/2023 - 03/01/2023 Hospital Encounter NSICU [facility], Neuroscience Intensive Care Unit, [facility] 4th Floor [address], [place] [id number] Davida Chun MD [address], [place] [id number] Barber Bustamante MD [address], [place] [id number] Angus Vicente MD [address], [place] [id number] Diagnostic Clarification Allergies Active Allergy Reactions Severity Noted Date Comments Tiotropium High 12/20/2019 "Couldn't catch his breath" documented as of this encounter (statuses as of 03/02/2023) Medications Medication Sig Dispensed Refills Start Date [...] mouth daily. 14 Each 0 11/06/2019 Active Budesonide-Formo terol Fumarate 160-4.5 MCG/ACT Inhalation [...] spasms. 90 Tablet 0 02/21/2023 03/23/2023 Active predniSONE 20 MG Oral Tablet (Deltasone) Take 2 Tablets by mouth daily for 3 days, THEN 1.5 Tablets daily for 2 days, THEN 1 Tablet daily for 2 days, THEN 0.5 Tablets daily for 1 day. Do not start before February 22, 2023. 12 Tablet 0 02/22/2023 03/02/2023 Active Midodrine HCl 5 MG Oral Tablet [...] the morning. 30 Tablet 3 03/02/2023 Active Clopidogrel Bisulfate 75 MG Oral Tablet (pLAVix) Take 1 Tablet by mouth in the morning. 0 10/31/2021 03/01/2023 Discontinued documented as of this encounter (statuses as of 03/02/2023) Active Problems Problem Noted Date Stenosis of [...] myocardial infarct 03/16/2009 Overview: Modified by Acute [place] Protocol #5. GERD (gastroesophageal reflux disease) 0 01/12/2003 GENERAL OSTEOARTHROSIS 01/12/2003 Major depression, single episode 003 Tobacco use disorder 01/12/2003 Convulsions 09/21/2002 BPH (benign prostatic hyperplasia) Chronic neck pain documented as of this encounter (statuses as of 03/02/2023) Resolved Problems Problem Noted Date Resolved Date F/u for non Q wave myocardial infarction 003 03/16/2009 Overview: Modified by Acute AK Protocol #5. Dyslipidemia, goal to be determined 01/12/2003 08/07/2009 Overview: Per Lipid Taxonomy. documented as of this encounter (statuses as of 03/02/2023) Immunizations Name Administration Dates Next Due COVID-19 [...] Day Cigarettes 1.5 40 Smokeless Tobacco: Never Tobacco Cessation:Ready to Q uit: Not Asked; Counseling Given: Not Answered Comments:Now down to 1/2 pack/day of small [...] Sign Reading Time Taken Comments Blood Pressure 113/60 03/01/2023 1:00 PM EDT Pulse 88 03/01/2023 1:00 PM EDT Temperature 36.5 C (97.7 F) 03/01/2023 12:00 PM E DT Respiratory Rate 28 03/01/2023 1:00 PM EDT Oxygen Saturation 100% 03/01/2023 1:00 PM EDT Inhaled Oxygen Concentration - - Weight 49.7 kg (109 lb 9.1 oz) 03/01/2023 8:00 A M EDT Height 170.2 cm (5' 7") 02/22/2023 1:30 PM EDT Body Mass Index 17.16 02/22/2023 1:30 PM EDT documented in this encounter Functional [...] Yes 02/22/2023 documented as of this encounter Discharge Summaries * Angus Vicente MD - 03/01/2023 12:40 PM EDT [address] [address] Admission Date: 02/22/2023 Discharge Date: 03/01/2023 RECOMMENDED TO DO FOR NEXT PROVIDER(S): Monitor PRU levels and adjust Plavix dose as indicated Follow up with blood consult for anemia, evaluate etiology Patient started on midodrine for intermittent hypotension - monitor response and adjust as needed REASON(S) FOR MEDICATION CHANGE(S): Midodrine 5mg: started in hospital for persistent hypotension with MAPs <65, continue at discharge Plavix 37.5mg: dose halved in hospital per neurosurgery, based on PRU level; neurosurgery to follow up outpatient and adjust dosing as needed vitamin: started for anemia Next Provider Verbal Communication: I did not communicate with the Next Provider. 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 ADMISSION HISTORY & PHYSICAL EXAM (focused): 82 year-[facility] and concern for seizure activity during his hospital stay for neck pain from degenerative disc disease. 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 from [facility] after an episode of unresponsiveness 02/23: CTA showed bilateral carotid artery stenosis (L>R) 02/24: Digital subtraction angiography (DSA) with neurosurgery to further evaluate carotid artery stenosis (L >95%, R 50-60%); became hypotensive during DSA so pt started on levophed and brought to NSICU for workup - negative for AK, seizure; pt experienced multiple episodes of change in mental status, most likely ICU delirium since these improved with sleep protocol 02/25: Resuscitation and monitoring in NSICU 02/26: Resuscitation and monitoring in NSICU 02/27: Underwent repeat DSA with neurosurgery for L carotid angioplasty and stenting, no complications 02/28: Hypotensive overnight, given fluid bolus and started on levophed, added midodrine 03/01: Hemodynamically stable, vital signs stable; safe for discharge to home given home PT, rehab equipment Vent/ABG:no Airway: oropharyngeal Operations & Procedures: Digital subtraction angiography 02/24; repeat digital subtraction angiography with angioplasty and stening of left carotid artery 02/27 Complications: Postoperative hypotension, likely hypovolemic in etiology Labs: CARDIAC: Troponin T (see below for last three most recent values): Lab Results Component Value Date/Time TROPT 57 (H) 02/25/2023 07:24 AM TROPT 53 (H) 02/24/2023 11:16 PM TROPT 46 (H) 02/24/2023 04:49 PM TROPT <0.010 09/19/2002 07:40 PM TROPT <0.010 09/19/2002 12:00 PM TROPT <0.010 09/19/2002 02:35 AM CHEMISTRY: BUN, Creatinine, GFR Estimated, Sodium, Potassium, Chloride, Carbon Dioxide, Glucose, Calcium (see below for most recent value): Lab Results Component Value Date/Time BUN 13 03/01/2023 05:20 AM BUN 21 (H) 11/05/2019 05:48 AM BUN 15 08/06/1996 08:00 AM CREAT 0.7 03/01/2023 05:20 AM CREAT 1.0 11/05/2019 05:48 AM CREAT 1.1 08/06/1996 08:00 AM GFRESTIMATED >60.0 11/05/2019 05:48 AM NA 139 03/01/2023 05:20 AM NA 138 11/05/2019 05:48 AM NA 140 08/06/1996 08:00 AM POTASSIUM 3.6 03/01/2023 05:20 AM POTASSIUM 4.1 11/05/2019 05:48 AM POTASSIUM 4.7 08/06/1996 08:00 AM CL 108 (H) 03/01/2023 05:20 AM CL 104 11/05/2019 05:48 AM CL 107 08/06/1996 08:00 AM CO2 25 03/01/2023 05:20 AM CO2 24 11/05/2019 05:48 AM CO2 27.7 08/06/1996 08:00 AM CA 7.8 (L) 03/01/2023 05:20 AM CA 8.4 11/05/2019 05:48 AM CA 8.8 08/06/1996 08:00 AM CREATININE: Creatinine (see below for last three most recent values): Lab Results Component Value Date/Time CREAT 0.7 03/01/2023 05:20 AM CREAT 0.6 02/28/2023 04:59 AM CREAT 0.8 02/27/2023 04:33 AM CREAT 1.0 11/05/2019 05:48 AM CREAT 0.8 11/04/2019 06:29 AM CREAT 0.9 11/03/2019 06:31 AM CREAT 1.1 08/06/1996 08:00 AM COAGS: PT, INR (see below for three most recent values): Lab Results Component Value Date/Time INR 0.9 10/25/2020 08:37 AM INR 1.0 12/02/2019 11:32 AM INR 1.05 09/20/2002 05:08 AM INR 1.01 09/19/2002 02:35 AM INR 1.04 05/24/2002 02:15 AM BLOOD COUNT: WBC, Hgb, Platelets (see below for most recent value): Lab Results Component Value Date/Time WBC 9.46 03/01/2023 05:20 AM WBC 8.0 10/02/2022 09:42 AM WBC 7.43 11/05/2019 05:48 AM WBC 7.6 08/06/1996 08:00 AM HGB 7.6 (L) 03/01/2023 05:20 AM HGB 11.7 (L) 10/02/2022 09:42 AM HGB 11.6 (L) 11/05/2019 05:48 AM HGB 15.3 08/06/1996 08:00 AM PLT 319 03/01/2023 05:20 AM PLT 257 10/02/2022 09:42 AM PLT 246 11/05/2019 05:48 AM PLT 245 08/06/1996 08:00 AM HEMOGLOBIN: Hgb (see below for last three most recent values): Lab Results Component Value Date/Time HGB 7.6 (L) 03/01/2023 05:20 AM HGB 7.7 (L) 02/28/2023 10:23 PM HGB 7.7 (L) 02/28/2023 01:15 PM HGB 11.7 (L) 10/02/2022 09:42 AM HGB 13.7 06/23/2020 07:38 AM HGB 13.2 (L) 12/16/2019 10:40 AM HGB 11.6 (L) 11/05/2019 05:48 AM HGB 11.8 (L) 11/04/2019 06:29 AM HGB 12.5 (L) 11/03/2019 06:31 AM HGB 15.3 08/06/1996 08:00 AM HEMOGLOBIN A1C: (see below for most recent value): Lab Results Component Value Date/Time HGBA1C 5.6 02/23/2023 07:27 AM HGBA1C 5.1 05/17/2002 05:05 PM LIVER FUNCTION TEST: Albumin, AST, ASTCMC (resulted at [facility] lab), Alkaline Phosphatase, ALT, ALTCMC (resulted at [facility] lab), Bilirubin Total, TBilCMC (resulted at [facility] lab), Protein - (see below for most recent value of each component): Lab Results Component Value Date/Time ALB 3.7 06/22/2020 09:23 AM AST 34 02/20/2023 08:18 AM AST 25 06/22/2020 09:23 AM AST 46 05/16/2002 02:38 AM ALKP 189 (H) 02/20/2023 08:18 AM ALKP 73 05/16/2002 02:38 AM ALKP 78 08/06/1996 08:00 AM ALT 29 02/20/2023 08:18 AM ALT 31 06/23/2020 07:38 AM ALT 37 05/16/2002 02:38 AM ALT 28 08/06/1996 08:00 AM TBIL 0.2 02/20/2023 08:18 AM TBIL 0.3 05/16/2002 02:38 AM TBIL NEGATIVE 08/06/1996 08:00 AM TBIL 0.5 08/06/1996 08:00 AM PROT 6.5 02/20/2023 08:18 AM PROT 6.1 05/16/2002 02:38 AM PROT NEGATIVE 08/06/1996 08:00 AM PROT 6.6 08/06/1996 08:00 AM Imaging (focused): [facility] Imaging: yes - No imaging results in the last 72 hours Test Results Still Pending at Discharge: none MEDICATIONS: [facility] discharge medications: Discharge medications MEDICATION UPDATES AT DISCHARGE START taking these medications INSTRUCTIONS midodrine 5 MG Tablet Commonly known as: Proamatine Take 1 Tablet by mouth three times per day (morning, noon, & before bedtime) 28-0.8 MG Tabs Take 1 Tablet by mouth every morning. CHANGE how you take these medications INSTRUCTIONS clopidogrel 75 MG Tablet Commonly known as: pLAVix Start taking on: March 02, 2023 What changed: how much to take Take 0.5 (one-half) tablet by mouth in the morning. CONTINUE taking these medications INSTRUCTIONS Acetaminophen 325 MG Tablet Commonly known as: Tylenol Take 2 Tabs by mouth every 6 hours as needed for Pain. aspirin enteric coated 81 MG Tbec Take 1 Tablet by mouth in the morning. Baclofen 10 MG Tablet Commonly known as: Lioresal Take 1 Tablet by mouth 3 times a day as needed for Muscle spasms. Budesonide-Formoterol 160-4.5 MCG/ACT inhaler Commonly known as: Symbicort Inhale 2 Puffs by mouth in the morning and 2 Puffs before bedtime. Calcium Carbonate 500 mg + Vitamin D 5 mcg (200 units) per tab 500-5 MG-MCG per tablet Take by mouth 1 Tablet at noon AND 1 Tablet in the evening. Do not start before February 26, 2022. cholecalciferol (VIT D3) 1000 UNITS Tablet Commonly known as: Vitamin D3 Take by mouth 2 Tablets in the morning. Do not start before February 26, 2022. diazePAM 5 MG Tablet Commonly known as: Valium Take 2 Tablets by mouth every 6 hours as needed for Muscle spasms for up to 15 days. Diclofenac 1 % Gel Commonly known as: Voltaren APPLY 1 G TOPICALLY 3 TIMES A DAY Docusate Sodium 100 MG Capsule Commonly known as: Colace Take 1 Cap by mouth 2 times a day. Famotidine 20 MG Tablet Commonly known as: Pepcid TAKE 1 TABLET BY MOUTH DAILY BEFORE A MEAL Finasteride 5 MG Tablet Commonly known as: Proscar Take 1 Tablet by mouth in the morning. fluticasone 50 MCG/ACT nasal spray Commonly known as: Flonase SPRAY 2 SPRAYS INTO EACH NOSTRIL EVERY DAY folic acid 1 MG Tablet Take 1 Tablet by mouth in the morning. Furosemide 20 MG Tablet Commonly known as: Lasix Take 1 Tablet by mouth daily as needed (chest pressure / weight gain). GetGo Rolling Walker Mis To assist with proper walking Klor-Con 10 10 MEQ Tbcr Generic drug: potassium chloride ER Take 1 Tablet by mouth in the morning. Lidocaine 4 % Ptch Commonly known as: Aspercreme Place topically on the skin 1 Patch in the morning. Do not start before February 26, 2022. Loratadine 10 MG Cap Take 1 Capsule by mouth in the morning. metoprolol succinate XL 25 MG Tb24 Commonly known as: toPROL XL Take 0.5 Tablets by mouth in the morning. Mirtazapine 30 MG Tablet Commonly known as: Remeron Take 1 Tablet by mouth at bedtime. oxyCODONE 5 MG immediate release tablet Commonly known as: Oxy IR Take 1 Tablet by mouth every 4 hours as needed for Pain, Severe. pantoprazole 40 MG Tbec Commonly known as: Protonix Take 1 Tablet by mouth in the morning and 1 Tablet before bedtime. Polyethylene Glycol 3350 packet Commonly known as: MiraLax Take 1 Packet by mouth daily. predniSONE 20 MG Tabs Tablet Commonly known as: Deltasone Start taking on: February 22, 2023 Take 2 Tablets by mouth daily for 3 days, THEN 1.5 Tablets daily for 2 days, THEN 1 Tablet daily for 2 days, THEN 0.5 Tablets daily for 1 day. Do not start before February 22, 2023. Simvastatin 40 MG Tablet Commonly known as: Zocor Take 1 Tablet by mouth every evening. Sucralfate 1 GM/10ML suspension Commonly known as: Carafate Take 10 mL by mouth in the morning and 10 mL at noon and 10 mL in the evening and 10 mL before bedtime. tamsulosin 0.4 MG Capsule Commonly known as: Flomax Take 2 Capsules by mouth in the morning. TEGretol 200 MG Tablet Generic drug: carBAMazepine one pill three times daily tiZANidine HCl 4 MG Capsule Take 1 Capsule by mouth 3 times a day as needed for Muscle spasms. traMADol 50 MG Tablet Commonly known as: Ultram Take by mouth 0.5 Tablets every 6 hours as needed for Pain, Severe (pain intensity 7 to 10/10). Ventolin HFA 108 (90 Base) MCG/ACT Aers Inhale 2 Puffs by mouth every 4 hours as needed for Shortness of Breath or Wheezing. SCHEDULED FOLLOW-UP: Future Appointments This patient does not currently have any appointments scheduled. OTHER INFORMATION: Vital Signs (last recorded): Most Recent Systolic BP: 119 mmHg (03/01/23899) Most Recent Diastolic BP: 53 mmHg (03/01/23899) Pulse: 78 (03/01/23899) Resp: 28 (03/01/23899) Most Recent Temperature: 36.5 C (03/01/23799) Weight: 49.7 kg (109 lb 9.1 oz) (03/01/23799) SpO2: 99 % (03/01/23899) O2 flow rate: 2 L/MIN (02/27/23 1545) Allergies: Tiotropium Activity: as tolerated Diet: age appropriate diet Nutrition: Recommend supplementation with protein shakes for malnutrition Code status (this admission): Full Code Discussion of adv directives occurred with - adult: Not Discussed due to patient's condition Condition on Discharge: stable Indwelling Devices: none Melendez Fall Scale: Fall Score: 85 (03/01/23799) Reference range: 0-24=minimal fall risk; 25-50=moderate fall risk; greater than 50=high fall risk. Isolation status: None Cognition: normal CONSULTS ORDERED: WOUND/OSTOMY CONSULT IP ADULT PHYSICAL THERAPY CONSULT IP ADULT OCCUPATIONAL THERAPY CONSULT IP NEUROSURGERY CONSULT IP CARDIOLOGY CONSULT IP ADULT PHYSICAL THERAPY CONSULT IP ADULT OCCUPATIONAL THERAPY CONSULT IP CARE MANAGEMENT CONSULT IP WOUND/OSTOMY CONSULT IP ADULT SPEECH THERAPY CONSULT IP (ACUTE CARE REHAB) ADULT OCCUPATIONAL THERAPY CONSULT IP ADULT PHYSICAL THERAPY CONSULT IP BLOOD MANAGEMENT CONSULT IP REFERRING PHYSICIAN: Ref: CLARKE COHEN ARIANNADaniel[[id number]] [address] [facility] [place] [phone] (office) [phone] (fax) PRIMARY CARE PROVIDER: PCP: James Madsen PA-C [address] [place] [address] / [place] [phone] (office) [phone] (fax) Note: To contact a physician responsible for this patients hospital care, please call [employer] [phone]. documented in this encounter Discharge Instructions * Discharge Instr - AVS* Emory Blanco DO - 03/01/2023 10:56 AM EDT Discharge Date: 03/01/2023 For after-hours emergencies call [phone] and have your doctor paged. The information below provides you with the instructions and the list of medications you need to betaking following discharge from the hospital. If you have any questions, please ask before leaving.Please carry this letter with you when you see your doctor in the clinic. If you have questions, you can reach us at the numbers above. Brief summary of your inpatient care: You presented after there was concern for a seizure event upon discharge from another hospital. You were found to have new right lower extremity weakness. Imaging workup showed bilateral left greater than right internal carotid artery stenosis. You underwent DSA 02/24 and left carotid angioplasty and stenting with Dr. Quevedo 02/27. Your doctors during this hospitalization included: Dr. Vicente (Critical Care), Dr. Quevedo (Neurosurgery), Dr. James (cardiology), Dr. Mak (neurology) Your primary diagnosis at discharge was bilateral internal carotid artery stenosis Inpatient test results pending: None Operations & Procedures: DSA 02/24 and left carotid angioplasty and stenting with Dr. Quevedo 02/27 Complications: none significant Advance Directive Documented: Advance Directive Does the Patient have an Advance Directive? Yes Diet: Normal diet Activity: As tolerated Driving: Do not drive. Date you may return to work or school: Based on further instruction reviewed by surgeon after follow up visit. See your primary care physician (James Madsen PA-C) in 1-2 week(s). Special Instructions: - your plavix dose is now lower, you will take 37.5mg daily now until you followup with Neurosurgery. They will adjust your dose at that time. - take a vitamin daily, this will help your hemoglobin to increase. - Use caution when standing or walking since you are at an increased risk for falls documented in this encounter Progress Notes * Angus Vicente MD - 03/01/2023 6:24 AM EDT CCM - PROGRESS NOTE [facility]-[address] [address] Name: James Ibarra Location: [facility] [id number] Date: 03/01/2023 Time: 6:24 AM Date of admission: 02/22/2023 Hospital length of stay: 7 days Subjective PATIENT DESCRIPTION: The patient is a 82 year old male coming to the ICU from the OR after he became hypotensive during his digital subtraction angiography (DSA) for evaluation of bilateral internal carotid artery stenosis. CLINICAL TIMELINE: 02/22 Transferred to [facility] from [facility] after episode of unresponsiveness 02/22 CTA showed bilateral carotid artery stenosis 02/24 DSA with neurosurgery, became hypotensive during procedure 02/24 NSICU for observation and workup 02/24 Multiple episodes of change in mental status 02/25 Continued monitoring and resuscitation in NSICU 02/26 Continued monitoring in NSICU, no events 02/27 OR for L carotid angioplasty and stenting 02/28 Hypotension overnight, given IVF bolus and put back on levo, added midodrine 03/01 Stable for discharge, today vs. tomorrow 24-HOUR INTERIM HISTORY: NAEO Off pressors Stable on midodrine Ok for discharge per nsgy + neuro PT/OT recommending acute rehab at discharge, but pt and partner refusing since they have home PT inplace pre-admission and rehab equipment at home Objective CONSTITUTIONAL DATA / OBJECTIVE: Vital Signs (Most Recent): Pulse: 72 (03/01/23599) BP: 137/65 (03/01/23599) Resp: 25 (03/01/23599) Temp: 36.4 C (97.5 F) (03/01/23599) SpO2: 99 % (03/01/23599) Vital Signs (Last 24 Hours): Pulse Av.2 Min: 64 Max: 83 No data recorded Most Recent Systolic BP Av.3 mmHg Min: 87 mmHg Max: 137 mmHg Most Recent Diastolic BP Av.3 mmHg Min: 45 mmHg Max: 84 mmHg Resp Av.3 Min: 17 Max: 29 Most Recent Temperature Av.7 C Min: 36.39 C Max: 37 C SpO2 Av.7 % Min: 85 % Max: 100 % Physical Examination: Constitutional: no acute distress, (+) cachectic CV: normal rate Abdomen: normal: soft, bowel sounds normal, no masses, tenderness or organomegaly Musculoskeletal: (+) fat mass loss: Severe Extremities: no clubbing, cyanosis, or edema, otherwise grossly normal, warm, and dry, diffuse bruising and petechiae present, no groin hematoma present Skin: warm, dry, intact: Neuro: alert, conversing normally; AAOx3; normal mental status exam, some difficulty with finger tonose testing on left hand; Glascow Coma Score 15; sensory normal, strength 1/5 on right leg, 3/5 onleft leg Intake & Output Summary (Last 24 hours): Intake/Output Summary (Last 24 hours) at 03/01/2023 0624 Last data filed at 03/01/2023 0600 Gross per 24 hour Intake 1030 ml Output 2100 ml Net -1070 ml Laboratory Values: I have personally reviewed the results as of 6:24 AM on 03/01/2023 Chemistry Panel: Lab results within last 7 days (see chart for full results) Units 02/28/23 0459 02/27/23 1044 02/27/23 0433 02/26/23 0448 02/25/23 0724 02/24/23 1203 02/24/23 0635 02/23/23 0727 02/22/23 0632 Sodium mmol/L 136 -- 138 138 136 137 139 138 139 Potassium mmol/L 3.9 4.3 5.3* 3.6 4.7 3.9 3.8 3.8 3.9 Chloride mmol/L 103 -- 108* 105 104 102 104 103 105 CO2 mmol/L 25 -- 21* 25 20* 24 27 28 26 BUN mg/dL 10 -- 14 9 10 15 15 15 17 Creatinine mg/dL 0.6 -- 0.8 0.6 0.6 0.6 0.6 0.6 0.6 Estimated Glomerular Filtration Rate mL/min >90 -- 89 >90 >90 >90 >90 >90 >90 Glucose mg/dL 90 -- 88 79 80 174* 100 86 86 Calcium mg/dL 7.7* -- 8.4 8.3* 8.4 8.0* 8.8 8.7 9.1 Magnesium mg/dL 2.3 -- 2.3 2.5 2.4 2.2 -- -- 2.3 Phosphorus mg/dL 3.0 -- 3.1 2.6 2.9 2.6 -- -- 2.5 Anion Gap mmol/L 8 -- 9 8 12 11 8 7 8 Complete Blood Count: Lab results within last 7 days (see chart for full results) Units 03/01/23 0520 02/28/23 2223 02/28/23 1315 02/28/23 0459 02/27/23 0433 02/26/23 0448 02/25/23 0709 WBC K/uL 9.46 8.36 8.05 9.56 9.11 6.15 8.09 HGB g/dL 7.6* 7.7* 7.7* 8.4* 10.5* 9.8* 10.6* HCT % 23.3* 23.1* 23.8* 26.3* 30.9* 30.1* 29.6* PLT K/uL 319 315 315 354 372 332 331 MCV fL 105.4 103.6 103.9 106.0 100.0 102.7 100.7 Radiographic Studies: I have personally reviewed the results as of 6:24 AM on 03/01/2023 No imaging results in the last 24 hours Assessment & Plan Principal Problem: Convulsions (HCC) POA: Yes Active Problems: GERD (gastroesophageal reflux disease) POA: Yes Tobacco use disorder POA: Yes Old myocardial infarct POA: Yes Overview: Modified by Acute [place] Protocol #5. Dyslipidemia, goal LDL below 100 POA: Yes Overview: Per Lipid Taxonomy. 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) POA: Unknown POA = Present On Admission NEUROLOGIC: Analgesia Tylenol 650mg q6h Delirium Sleep protocol Seizure history (remote) Tegretol ELECTRONIC TRAIN CONTROL TECHNICIAN mirtazapine Bilateral Carotid Artery Stenosis S/p L carotid angioplasty and stenting with NSGY 02/27 NSGY recs appreciated Plavix @ 1/2 dose - continue at home, follow up with with nsgy outpatient Okay for vitals and neurochecks q4h SBP goals 100-140 Stable for dc PULMONARY / RESPIRATORY: Hx of COPD Breo ellipta daily (ELECTRONIC TRAIN CONTROL TECHNICIAN symbicort), ELECTRONIC TRAIN CONTROL TECHNICIAN albuterol PRN IS, pulmonary hygiene CARDIOVASCULAR: Hypovolemic vs. Cardiogenic vs. Septic Shock - likely hypovolemic (improved) Off levo 7/7 AM s/p fluid resuscitation Midodrine started 02/28 - continue at discharge Hemodynamically stable Troponins nl ECHO read: The septal motion is abnormal consistent with intrventricular conduction delay. The regional left ventricular wall motion is otherwise normal. There is diffuse right ventricular hypokinesis. The right ventricular systolic function is mildly reduced . The aortic valve is mildly calcified. Image and Doppler assessment of aortic stenosis severity is discordant: Mild to moderate aortic stenosis is suspected. 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, metoprolol, simvastatin On plavix 1/2 dose Intra-op hypotension likely due to intravascular volume depletion based on response to fluid bolus, collapsible IVC on POCUS; cardiogenic shock less likely due to normal-appearing heart on ECHO and lack of significant troponin elevation; septic shock unlikely due to continued normal temperatureand WBC count Overnight hypotension treated with levo after POCUS showed decent volume status, levo was able to be weaned off 7/7 AM SBP goals 100-140 GASTROINTESTINAL / HEPATOBILIARY: No active issues Diet: pureed food, thin liquids, protein shakes Pepcid for GI ppx Colace RENAL / METABOLIC / FLUIDS: No active issues Fluids dc'd ELECTRONIC TRAIN CONTROL TECHNICIAN finasteride, tamsulosin INFECTIOUS DISEASES: No active issues ENDOCRINE: No active issues HEMATOLOGIC: No active issues DVT/VTE Prophylaxis: SCDs, lovenox MUSCULOSKELETAL / P.T / O.T. / MOBILITY / DERMATOLOGIC: Neck pain + muscle spasms - DJD Baclofen, prednisone taper LINES / DRAINS / TUBES: LINES ALL Duration Peripheral Line Right;Median 22 Gauge 8 days Peripheral Line Right;Upper Arm 20 Gauge 4 days GLOBAL ISSUES: Code Status: Full Code Analgesia: well controlled Sedation: not applicable Delirium/Confusion Assessment Method for ICU (CAM-ICU): positive for hypoactive delirium HOB Elevation: greater than 30 degrees Nutrition: PO DVT Prophylaxis: chemoprophylaxis with pneumatic compression devices Stress Ulcer Prophylaxis: Proton Pump Inhibitor. Glycemic Control: well controlled Central Line Necessity Reviewed: not applicable Hernandez: reviewed and still needed at this time Disposition: keep in ICU - when transfer to floor will return to neuro stroke service Patient's decisional capacity: has capacity to make decisions Communication with Patient/Family: communicated with patient and partner at bedside during rounds Goals of Care: improve mental status to baseline Patient was seen and discussed on rounds with MD Jocelyn Howard MD General Surgery PGY1 I saw and evaluated the patient today. I have reviewed the trainee note and agree. 82 year old male with hypotension after angiogram. Injury complex/ medical problems: BPH Seizures Dyslipidemia Malnutrition Hypotension GERD Depression PUD Tobacco abuse COPD Delirium Shock Skin tear LUE Procedures/ operations: Diagnostic cerebral angiogram02/24 leftcarotid angioplasty and stenting using a 7mm x 40mm Cordis Precise stent 02/27 Last 24 hours: Stable oevrnight Neuro:tylenol, baclofen, tegretol, remeron Respiratory:breo ellipta, albuterol CV:plavix, zocor,ELECTRONIC TRAIN CONTROL TECHNICIAN metoprolol, midodrine 5 tid Abdomen:pureed diet, pepcid, bowel regimen Renal:flomax Endo:prednisone, glucose checks ID:no issues Heme:lovenox for DVT ppx MSK:PT/OT Lines:PIV Refuse rehab Possible discharge today * Emory Blanco DO - 03/01/2023 5:47 AM EDT PROGRESS NOTE - Neurology [facility] [place]-[address] [address] Name: James Ibarra Location: [facility] A436/[id number] Date: 03/01/2023 Time: 5:47 AM [facility] A436/A SUMMARY: - James Ibarra is a 82 year old patient initially seen by Neurology for concern of seizure activity. He subsequently developed RLE weakness determined to be symptomatic left ICA stenosis treated with 02/27 ICA stent Hospital day:7 CHANGES SINCE LAST VISIT - Resumed Plavix at half dose (37.5 mg) daily SUBJECTIVE: - Patient declined rehab. No complaints at bedside. 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 Drug use: Never OBJECTIVE: Physical Examination Most Recent Vital Signs: BP: 97 mmHg/66 mmHg (03/01/23 0400) Pulse: 67 (03/01/23 0400) Temp: 36.5 C (03/01/23 0400) Resp: 29 (03/01/23 0400) SpO2: 96 % (03/01/23 040) Weight: 47.2 kg (104 lb 0.9 oz) (02/28/23 0800) Height: 170.2 cm (5' 7") (02/22/23 1330) Body mass index is 16.3 kg/m. Vital Signs Last 24 Hours: Systolic BP: Most Recent Systolic BP Av.3 mmHg Min: 87 mmHg Max: 128 mmHg Temperature: Most Recent Temperature Av.7 C Min: 36.5 C Max: 37 C Pulse: Pulse Av.2 Min: 64 Max: 88 Respirations: Resp Av.8 Min: 17 Max: 38 SpO2: SpO2 Av.8 % Min: 85 % Max: 100 % General Examination: Constitutional: Appearance non-obese and no deformities, LTM intact Head/face, ears, nose, throat: normocephalic, atraumatic Cardiovascular: regular rate and regular rhythm Psychiatric: normal judgement and insight, normal mood and normal affect Neurologic Examination: Ophthalmoscopic: deferred due to inadequate dilation Mental Status and Orientation: awake, alert, oriented x 3 Memory: intact to recent and remote recall Attention: normal Knowledge:normal Language: no aphasia Speech: no dysarthria Cranial Nerves: CN 2 - pupils round, equal, reactive to light CN 3, 4, 6 - extra-ocular movements intact and no nystagmus CN 5 - facial sensation intact V1-3 CN 7 - no facial asymmetry CN 8 - intact hearing CN 9, 10 - palate symmetric, uvula midline, no deviation CN 11 - shoulder shrug full strength CN 12 - tongue protrudes midline Sensory: intact to light touch Coordination: intact with finger to nose testing Gait: deferred due to fall risk Muscle Tone: normal Muscle exam: strength 5/5 upper and lower extremities and no drift National [place] of Health Stroke Scale: 1A. LOC: 0 1B. Question: 0 1C. Commands: 0 2. Gaze: 0 3. Visual Moss: 0 4. Facial Palsy: 0 5A. Arm Left: 0 5B. Arm Right: 0 6A. Leg Left: 0 6B. Leg Right: 0 7. Ataxia: 0 8. Sensory: 0 9. Aphasia: 0 10. Dysarthria: 0 11. Extinction: 0 Total: 0 LABS Chemistry Panel: Lab results within last 7 days (see chart for full results) Units 02/28/23 0459 02/27/23 1044 02/27/23 0433 02/26/23 0448 02/25/23 0724 02/24/23 1203 02/24/23 0635 02/23/23 0727 02/22/23 0632 Sodium mmol/L 136 -- 138 138 136 137 139 138 139 Potassium mmol/L 3.9 4.3 5.3* 3.6 4.7 3.9 3.8 3.8 3.9 Chloride mmol/L 103 -- 108* 105 104 102 104 103 105 CO2 mmol/L 25 -- 21* 25 20* 24 27 28 26 BUN mg/dL 10 -- 14 9 10 15 15 15 17 Creatinine mg/dL 0.6 -- 0.8 0.6 0.6 0.6 0.6 0.6 0.6 Estimated Glomerular Filtration Rate mL/min >90 -- 89 >90 >90 >90 >90 >90 >90 Glucose mg/dL 90 -- 88 79 80 174* 100 86 86 Calcium mg/dL 7.7* -- 8.4 8.3* 8.4 8.0* 8.8 8.7 9.1 Magnesium mg/dL 2.3 -- 2.3 2.5 2.4 2.2 -- -- 2.3 Phosphorus mg/dL 3.0 -- 3.1 2.6 2.9 2.6 -- -- 2.5 Anion Gap mmol/L 8 -- 9 8 12 11 8 7 8 Complete Blood Count: Lab results within last 7 days (see chart for full results) Units 02/28/23 2223 02/28/23 1315 02/28/23 0459 02/27/23 0433 02/26/23 0448 02/25/23 0709 02/24/23 1203 WBC K/uL 8.36 8.05 9.56 9.11 6.15 8.09 6.21 HGB g/dL 7.7* 7.7* 8.4* 10.5* 9.8* 10.6* 9.6* HCT % 23.1* 23.8* 26.3* 30.9* 30.1* 29.6* 29.3* PLT K/uL 315 315 354 372 332 331 314 MCV fL 103.6 103.9 106.0 100.0 102.7 100.7 104.3 Lipids: Latest Reference Range & Units 02/23/23 07:27 LDL Cholesterol <=129 mg/dL 73 A1C: Lab Results Component Value Date/Time HEMOGLOBIN A1C - [facility] 5.6 02/23/2023 07:27 AM HEMOGLOBIN A1C - [facility] 5.1 05/17/2002 05:05 PM RECENT IMAGE IMPRESSIONS No imaging results in the last 72 hours OTHER STUDIES REVIEWED CT HEAD/BRAIN WO CONTRAST 02/23/2023 IMPRESSION: No evidence of large, acute territorial infarction or intracranial hemorrhage. Small chronic infarction within the head of the left caudate nucleus/sumner radiata. Chronic microvascular white matter disease and parenchymal volume loss. MRI Brain Deferred due to presence of PPM DSA 02/24/23 Impression: 1. Severe (>95%) left carotid stenosis at the carotid origin 2. Otherwise normal diagnostic cerebral angiogram without evidence of aneurysm, AVM, or dAVF. 3. Normal capillary and venous filling pattern, all major sinuses appear patent. Recommendations: 1. Will discuss timing of intervention if needed. 2. Continue Aspirin and Plavix as before, no change. TTE 02/24/23 LV ejection fraction is 50-54% (normal). The septal motion is abnormal consistent with intrventricular conduction delay. The regional left ventricular wall motion is otherwise normal. There is diffuse right ventricular hypokinesis. The right ventricular systolic function is mildly reduced . The aortic valve is mildly calcified. Image and Doppler assessment of aortic stenosis severity is discordant: Mild to moderate aortic stenosis is suspected. 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 LTM did not detect clinical or electrographic seizure activity this far and all previous routine EEGs have been wnl. Cannot rule out convulsive syncope, vasovagal event, or a consequence of significant atherosclerotic disease affecting perfusion that could have contributed to the events leading to his transfer to [facility]. Subsequently this hospitalization he was found to have new RLE weakness, high suspicion for stroke not yet visible on CTH vs symptomatic L ICA stenosis. MRI Brain could not be done due to pacemaker. Had a DSA by SUDHA 02/24 which revealed >95% LICA stenosis without acute intervention. Subsequentlyhe became hypotensive to the 40s with jaw pain and was transferred to NSICU for observation. He gradually had improvement in his weakness, ambulating with a walker with physical therapy. Subsequentlymaintained blood pressure without pressor support. Family elected for 02/27/23 carotid stent placement. RECOMMENDATIONS/PLAN: Watershed infarct due to symptomatic LICA stenosis (Right LE weakness) - Status post 02/[address] Quevedo - Clopidogrel 37.5 daily per neurosurgery - Aspirin indefinitely - Continue Simvastatin 40 mg daily (moderate intensity) - Neurology follow up out patient in 6 weeks - PT/OT Postop hypotension - Norepi stopped, care per [facility] History of ?seizure disorder 2/2 cardiac arrest - No epileptogenic activities were captured on LTM (stopped 02/24/23) - Continue ELECTRONIC TRAIN CONTROL TECHNICIAN tegretol 200 TID Rest per ICU team Disposition: Pending repeat O.T. and P.T evaluation CODE STATUS: Full Code Discussion of adv directives occurred with - adult: Not Discussed due to patient's condition Prior to Admission medications Medication Sig Last Dose Discont. Baclofen 10 MG Oral Tablet (Lioresal) Take 1 Tablet by mouth 3 times a day as needed for Muscle spasms. Unknown diazePAM 5 MG Oral Tablet (Valium) Take 2 Tablets by mouth every 6 hours as needed for Muscle spasms for up to 15 days. Unknown predniSONE 20 MG Oral Tablet (Deltasone) Take 2 Tablets by mouth daily for 3 days, THEN 1.5 Tabletsdaily for 2 days, THEN 1 Tablet daily for 2 days, THEN 0.5 Tablets daily for 1 day. Do not start before February 22, 2023. Unknown Loratadine 10 MG Oral Capsule Take 1 Capsule by mouth in the morning. Unknown tiZANidine HCl 4 MG Oral Capsule Take 1 Capsule by mouth 3 times a day as needed for Muscle spasms.Unknown Sucralfate 1 GM/10ML Oral Suspension (Carafate) Take 10 mL by mouth in the morning and 10 mL at noon and 10 mL in the evening and 10 mL before bedtime. Unknown oxyCODONE HCl 5 MG Oral Tablet (Oxy IR) Take 1 Tablet by mouth every 4 hours as needed for Pain, Severe. Unknown traMADol HCl 50 MG Oral Tablet (Ultram) Take by mouth 0.5 Tablets every 6 hours as needed for Pain,Severe (pain intensity 7 to 10/10). Unknown Calcium Carbonate-Vitamin D 500-200 MG-UNIT Oral Tablet Take by mouth 1 Tablet at noon AND 1 Tabletin the evening. Do not start before February 26, 2022. Unknown GetGo Rolling Walker To assist with proper walking Unknown Lidocaine 4 % External Patch (Aspercreme) Place topically on the skin 1 Patch in the morning. Do not start before February 26, 2022. Unknown Vitamin D3 25 MCG (1000 UT) Oral Tablet (Vitamin D3) Take by mouth 2 Tablets in the morning. Do notstart before February 26, 2022. Unknown Budesonide-Formoterol Fumarate 160-4.5 MCG/ACT Inhalation Aerosol (Symbicort) Inhale 2 Puffs by mouth in the morning and 2 Puffs before bedtime. Unknown Clopidogrel Bisulfate 75 MG Oral Tablet (pLAVix) Take 1 Tablet by mouth in the morning. Unknown Diclofenac Sodium 1 % External Gel (Voltaren) APPLY 1 G TOPICALLY 3 TIMES A DAY Unknown Famotidine 20 MG Oral Tablet (Pepcid) TAKE 1 TABLET BY MOUTH DAILY BEFORE A MEAL Unknown Fluticasone Propionate 50 MCG/ACT Nasal Suspension (Flonase) SPRAY 2 SPRAYS INTO EACH NOSTRIL EVERYDAY Unknown Folic Acid 1 MG Oral Tablet Take 1 Tablet by mouth in the morning. Unknown Mirtazapine 30 MG Oral Tablet (Remeron) Take 1 Tablet by mouth at bedtime. Unknown Tamsulosin HCl 0.4 MG Oral Capsule (Flomax) Take 2 Capsules by mouth in the morning. Unknown acetaminophen (TYLENOL) 325 MG Tablet Take 2 Tabs by mouth every 6 hours as needed for Pain. Unknown docusate sodium (COLACE) 100 MG Capsule Take 1 Cap by mouth 2 times a day. Unknown polyethylene glycol 3350 (MIRALAX) packet Take 1 Packet by mouth daily. Unknown Albuterol Sulfate (VENTOLIN HFA) 108 (90 Base) MCG/ACT AERS Inhale 2 Puffs by mouth every 4 hours as needed for Shortness of Breath or Wheezing. Unknown Aspirin 81 MG Oral Tablet Delayed Release Take 1 Tablet by mouth in the morning. Unknown pantoprazole (PROTONIX) 40 MG TBEC Take 1 Tablet by mouth in the morning and 1 Tablet before bedtime. Unknown finasteride (PROSCAR) 5 MG Tablet Take 1 Tablet by mouth in the morning. Unknown furosemide (LASIX) 20 MG Tablet Take 1 Tablet by mouth daily as needed (chest pressure / weight gain). Unknown KLOR-CON 10 10 MEQ TBCR Take 1 Tablet by mouth in the morning. Unknown metoprolol succinate XL (TOPROL XL) 25 MG TB24 Take 0.5 Tablets by mouth in the morning. Unknown simvastatin (ZOCOR) 40 MG Tablet Take 1 Tablet by mouth every evening. Unknown TEGRETOL 200 MG PO TABS one pill three times daily Unknown Current Facility-Administered Medications Medication Dose Route Frequency Provider Last Rate Last Admin Acetaminophen (Tylenol) tab 650 mg 650 mg Oral Q6H Ruba Dhillon DO 650 mg at Albuterol Sulfate (Proventil) (2.5 MG/3ML) 0.083% inhalation solution 2.5 mg 2.5 mg Nebulizer Q4H PRN Ruba Dhillon DO 2.5 mg at 02/28/23 1617 aspirin enteric coated tab 81 mg 81 mg Oral Daily(AM) Ruba Dhillon DO 81 mg at 02/28/23 0751 Baclofen (Lioresal) tab 10 mg 10 mg Oral TID(AM/NOON/HS) Ruba Dhillon DO 10 mg at 03/01/23 0537 carBAMazepine (Tegretol) tab 200 mg 200 mg Oral TID(AM/NOON/HS) Ruba Dhillon DO 200 mg at 03/01/23 0537 chlorHEXIDINE (Periogard) 0.12 % oral rinse 15 mL 15 mL Oral mucosal membrane BID () Ruba Dhillon DO 15 mL at 02/28/232001 clopidogrel (pLAVix) tab 37.5 mg 37.5 mg Oral Daily(AM) Ruba Dhillon DO 37.5 mg at 02/28/23 1247 Docusate Sodium (Colace) cap 100 mg 100 mg Oral Q12H Ruba Dhillon DO 100 mg at 02/28/232001 Enoxaparin (Lovenox) inj 40 mg 40 mg Subcutaneous Daily 1000 Ruba Dhillon DO 40 mg at02/28/23 0956 Famotidine (Pepcid) tab 20 mg 20 mg Oral Daily(AM) Ruba Dhillon DO 20 mg at 02/28/23 0752 fluticasone (Flonase) nasal inhaler 2 [place] 2 [place] Each Nostril Daily(AM) Ruba Dhillon DO 2 [place] at 02/28/23 0753 fluticasone furoate-vilanterol (BREO ellipta) 200-25 MCG/ACT inhaler 1 Puff 1 Puff Inhalation Daily(AM) Ruba Dhillon DO 1 Puff at 02/28/23 0753 folic acid tab 1 mg 1 mg Oral Daily(AM) Ruba Dhillon DO 1 mg at 02/28/23 0751 Lidocaine (Aspercreme) 4 % patch 1 Patch 1 Patch Transdermal Daily(AM) Ruba Dhillon DO 1 Patch at 02/28/23 0752 midodrine (Proamatine) tab 5 mg 5 mg Oral TID(AM/NOON/HS) Ruba Dhillon DO 5 mg at 03/01/23 0537 Mirtazapine (Remeron) tab 30 mg 30 mg Oral HS Ruba Dhillon DO 30 mg at 02/28/23 2202 Oral Hygiene: Mouth Swab with dentifrice Oral Q4H Limited (00;04;12;16) Ruba Dhillon DO Given at 03/01/23 0400 Polyethylene Glycol 3350 (Miralax) oral powder 17 g 1 Packet Oral Daily PRN Ruba Dhillon DO predniSONE (Deltasone) tab 10 mg 10 mg Oral Daily(AM) Ruba Dhillon DO Simvastatin (Zocor) tab 40 mg 40 mg Oral QPM 2000 Ruba Dhillon DO 40 mg at 02/28/23 203 sodium chloride 0.9 % flush peripheral nikky 3 mL 3 mL IV Push Q8H Ruba Dhillon DO 3 mL at 03/01/23 0600 sodium chloride 0.9 % flush/inj 3 mL 3 mL IV Push PRN Ruba Dhillon DO tamsulosin (Flomax) cap 0.8 mg 0.8 mg Oral Daily(AM) Ruba Dhillon DO 0.8 mg at 02/28/23 0752 Associated attestation - Daniel Mak MD - 03/01/2023 5:09 PM EDT I saw and evaluated the patient on 03/01/2023. I have reviewed the trainee note and agree. Doing well clinically. Continue dual antiplatelets. Okay to discharge from neurology standpoint * Angus Vicente MD - 02/28/2023 6:43 AM EDT CCM - PROGRESS NOTE [facility] [address] Name: James Ibarra Location: [facility] A436/[id number] Date: 02/28/2023 Time: 6:43 AM Date of admission: 02/22/2023 Hospital length of stay: 6 days Subjective PATIENT DESCRIPTION: The patient is a 82 year old male coming to the ICU from the OR after he became hypotensive during his digital subtraction angiography (DSA) for evaluation of bilateral internal carotid artery stenosis. CLINICAL TIMELINE: 02/22 Transferred to [facility] from [facility] after episode of unresponsiveness 02/22 CTA showed bilateral carotid artery stenosis 02/24 DSA with neurosurgery, became hypotensive during procedure 02/24 NSICU for observation and workup 02/24 Multiple episodes of change in mental status 02/25 Continued monitoring and resuscitation in NSICU 02/26 Continued monitoring in NSICU, no events 02/27 OR for L carotid angioplasty and stenting 24-HOUR INTERIM HISTORY: Had some hypotension overnight, was started on levo to maintain SBP>100 per NSGY recs. Objective CONSTITUTIONAL DATA / OBJECTIVE: Vital Signs (Most Recent): Pulse: 74 (02/28/23599) BP: 111/55 (02/28/23599) Resp: 22 (02/28/23599) Temp: 37 C (98.6 F) (02/28/23599) SpO2: 100 % (02/28/23599) Vital Signs (Last 24 Hours): Pulse Av.3 Min: 65 Max: 77 No data recorded Most Recent Systolic BP Av.9 mmHg Min: 82 mmHg Max: 138 mmHg Most Recent Diastolic BP Av.8 mmHg Min: 46 mmHg Max: 93 mmHg Resp Av.3 Min: 15 Max: 29 Most Recent Temperature Av.6 C Min: 35.61 C Max: 37.11 C SpO2 Av.5 % Min: 97 % Max: 100 % Physical Examination: Constitutional: no acute distress, (+) cachectic CV: normal rate Abdomen: normal: soft, bowel sounds normal, no masses, tenderness or organomegaly Musculoskeletal: (+) fat mass loss: Severe Extremities: no clubbing, cyanosis, or edema, otherwise grossly normal, warm, and dry, diffuse bruising and petechiae present Skin: warm, dry, intact: Neuro: alert, conversing normally; AAOx3; normal mental status exam, some difficulty with finger tonose testing on left hand; Glascow Coma Score 15; sensory normal, strength 1/5 on right leg, 3/5 onleft leg Intake & Output Summary (Last 24 hours): Intake/Output Summary (Last 24 hours) at 02/28/2023 0643 Last data filed at 02/28/2023 0600 Gross per 24 hour Intake 2659.5 ml Output 1570 ml Net 1089.5 ml Laboratory Values: I have personally reviewed the results as of 6:43 AM on 02/28/2023 Chemistry Panel: Lab results within last 7 days (see chart for full results) Units 02/28/23 0459 02/27/23 1044 02/27/23 0433 02/26/23 0448 02/25/23 0724 02/24/23 1203 02/24/23 0635 02/23/23 0727 02/22/23 0632 Sodium mmol/L 136 -- 138 138 136 137 139 138 139 Potassium mmol/L 3.9 4.3 5.3* 3.6 4.7 3.9 3.8 3.8 3.9 Chloride mmol/L 103 -- 108* 105 104 102 104 103 105 CO2 mmol/L 25 -- 21* 25 20* 24 27 28 26 BUN mg/dL 10 -- 14 9 10 15 15 15 17 Creatinine mg/dL 0.6 -- 0.8 0.6 0.6 0.6 0.6 0.6 0.6 Estimated Glomerular Filtration Rate mL/min >90 -- 89 >90 >90 >90 >90 >90 >90 Glucose mg/dL 90 -- 88 79 80 174* 100 86 86 Calcium mg/dL 7.7* -- 8.4 8.3* 8.4 8.0* 8.8 8.7 9.1 Magnesium mg/dL 2.3 -- 2.3 2.5 2.4 2.2 -- -- 2.3 Phosphorus mg/dL 3.0 -- 3.1 2.6 2.9 2.6 -- -- 2.5 Anion Gap mmol/L 8 -- 9 8 12 11 8 7 8 Complete Blood Count: Lab results within last 7 days (see chart for full results) Units 02/28/23 0459 02/27/23 0433 02/26/23 0448 02/25/23 0709 02/24/23 1203 02/24/23 0635 02/23/23 0727 WBC K/uL 9.56 9.11 6.15 8.09 6.21 7.62 6.80 HGB g/dL 8.4* 10.5* 9.8* 10.6* 9.6* 10.3* 10.4* HCT % 26.3* 30.9* 30.1* 29.6* 29.3* 30.5* 32.3* PLT K/uL 354 372 332 331 314 334 314 MCV fL 106.0 100.0 102.7 100.7 104.3 100.3 103.9 Radiographic Studies: I have personally reviewed the results as of 6:43 AM on 02/28/2023 No imaging results in the last 24 hours Assessment & Plan Principal Problem: Convulsions (HCC) POA: Yes Active Problems: GERD (gastroesophageal reflux disease) POA: Yes Tobacco use disorder POA: Yes Old myocardial infarct POA: Yes Overview: Modified by Acute [place] Protocol #5. Dyslipidemia, goal LDL below 100 POA: Yes Overview: Per Lipid Taxonomy. 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) POA: Unknown POA = Present On Admission NEUROLOGIC: Analgesia Tylenol 650mg q6h Sedation N/A Delirium Sleep protocol Seizure history (remote) Tegretol ELECTRONIC TRAIN CONTROL TECHNICIAN mirtazapine Bilateral Carotid Artery Stenosis S/p L carotid angioplasty and stenting with NSGY 02/27 NSGY recs appreciated Okay to restart plavix today per NSGY dosing Okay for vitals and neurochecks q4h SBP goals 100-140 PULMONARY / RESPIRATORY: Hx of COPD Breo ellipta daily (ELECTRONIC TRAIN CONTROL TECHNICIAN symbicort), ELECTRONIC TRAIN CONTROL TECHNICIAN albuterol PRN IS, pulmonary hygiene CARDIOVASCULAR: Hypovolemic vs. Cardiogenic vs. Septic Shock - likely hypovolemic (improved) Off levo as of 1999 on 02/24 s/p 0.5 + 1 L bolus isolyte Hemodynamically stable Troponin 52, 47 > stop trending ECHO read: The septal motion is abnormal consistent with intrventricular conduction delay. The regional left ventricular wall motion is otherwise normal. There is diffuse right ventricular hypokinesis. The right ventricular systolic function is mildly reduced . The aortic valve is mildly calcified. Image and Doppler assessment of aortic stenosis severity is discordant: Mild to moderate aortic stenosis is suspected. 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, metoprolol, simvastatin Okay to restart plavix today Intra-op hypotension likely due to intravascular volume depletion based on response to fluid bolus, collapsible IVC on POCUS; cardiogenic shock less likely due to normal-appearing heart on ECHO and lack of significant troponin elevation; septic shock unlikely due to continued normal temperatureand WBC count Overnight hypotension treated with levo after POCUS showed decent volume status, levo was able to be weaned off this AM SBP goals 100-140 GASTROINTESTINAL / HEPATOBILIARY: No active issues Diet: pureed food, thin liquids Pepcid for GI ppx Senna + colace RENAL / METABOLIC / FLUIDS: No active issues Fluids dc'd ELECTRONIC TRAIN CONTROL TECHNICIAN finasteride, tamsulosin INFECTIOUS DISEASES: No active issues ENDOCRINE: No active issues HEMATOLOGIC: No active issues DVT/VTE Prophylaxis: SCDs, lovenox MUSCULOSKELETAL / P.T / O.T. / MOBILITY / DERMATOLOGIC: Neck pain + muscle spasms - DJD Baclofen, prednisone taper LINES / DRAINS / TUBES: LINES ALL Duration Peripheral Line Right;Median 22 Gauge 7 days Peripheral Line Right;Upper Arm 20 Gauge 3 days GLOBAL ISSUES: Code Status: Full Code Analgesia: well controlled Sedation: not applicable Delirium/Confusion Assessment Method for ICU (CAM-ICU): positive for hypoactive delirium HOB Elevation: greater than 30 degrees Nutrition: PO DVT Prophylaxis: chemoprophylaxis with pneumatic compression devices Stress Ulcer Prophylaxis: Proton Pump Inhibitor. Glycemic Control: well controlled Central Line Necessity Reviewed: not applicable Hernandez: reviewed and still needed at this time Disposition: keep in ICU - when transfer to floor will return to neuro stroke service Patient's decisional capacity: has capacity to make decisions Communication with Patient/Family: No meeting held. Goals of Care: improve mental status to baseline Patient was seen and discussed on rounds with Dr. Angus Vicente MD I saw and evaluated the patient today. I have reviewed the trainee note and agree. 82 year old male with hypotension after angiogram. Injury complex/ medical problems: BPH Seizures Dyslipidemia Malnutrition Hypotension GERD Depression PUD Tobacco abuse COPD Delirium Shock Skin tear LUE Procedures/ operations: Diagnostic cerebral angiogram02/24 left carotid angioplasty and stenting using a 7 mm x 40 mm Cordis Precise stent 02/27 Last 24 hours: Brief hypotension overnight requiring norepi Neuro:tylenol, baclofen, tegretol, remeron Respiratory:breo ellipta, albuterol CV:plavix, zocor, ELECTRONIC TRAIN CONTROL TECHNICIAN metoprolol, midodrine 5 tid Abdomen:pureed diet, pepcid, bowel regimen Renal:flomax Endo:prednisone, glucose checks ID:no issues Heme:lovenox for DVT ppx MSK:PT/OT Lines:PIV I have personally [id number] of critical care time exclusive of time spent on separatelybillable procedures. Time includes review of laboratory data, radiology results and monitoring for potential decompensation. Interventions were performed as documented above. Upon my evaluation, this patient had a high probability of imminent or life- threatening deterioration due tostroke, which required my direct attention, intervention, and personal management. * Emory Blanco DO - 02/28/2023 5:58 AM EDT PROGRESS NOTE - Neurology [facility]-[address] [address] Name: James Ibarra Location: [facility] A436/A Date: 02/28/2023 Time: 5:58 AM [facility] A436/A SUMMARY: - James Ibarra is a 82 year old patient initially seen by Neurology for concern of seizure activity. He subsequently developed RLE weakness determined to be symptomatic left ICA stenosis treated with 02/27 ICA stent Hospital day:6 CHANGES SINCE LAST VISIT - Patient had LICA stent 02/27 - When returned to ICU had some hypotension to 80s, asymptomatic, Required pressure support with Levophed. SUBJECTIVE: - Endorsed dizziness and some initial pain at left femoral site postop. Better this morning. 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 Drug use: Never OBJECTIVE: Physical Examination Most Recent Vital Signs: BP: 120 mmHg/56 mmHg (02/28/23 0500) Pulse: 69 (02/28/23 0500) Temp: 37 C (02/28/23 0400) Resp: 25 (02/28/23 0500) SpO2: 98 % (02/28/23 0400) Weight: 46.1 kg (101 lb 10.1 oz) (02/27/23 0800) Height: 170.2 cm (5' 7") (02/22/23 1330) Body mass index is 15.92 kg/m. Vital Signs Last 24 Hours: Systolic BP: Most Recent Systolic BP Av.7 mmHg Min: 82 mmHg Max: 138 mmHg Temperature: Most Recent Temperature Av.5 C Min: 35.61 C Max: 37.11 C Pulse: Pulse Av.2 Min: 65 Max: 77 Respirations: Resp Av.2 Min: 15 Max: 29 SpO2: SpO2 Av.4 % Min: 97 % Max: 100 % General Examination: Constitutional: Appearance non-obese and no deformities, LTM intact Head/face, ears, nose, throat: normocephalic, atraumatic Cardiovascular: regular rate and regular rhythm Psychiatric: normal judgement and insight, normal mood and normal affect Neurologic Examination: Ophthalmoscopic: deferred due to inadequate dilation Mental Status and Orientation: awake, alert, oriented x 3 Memory: intact to recent and remote recall Attention: normal Knowledge:normal Language: no aphasia Speech: no dysarthria Cranial Nerves: CN 2 - pupils round, equal, reactive to light CN 3, 4, 6 - extra-ocular movements intact and no nystagmus CN 5 - facial sensation intact V1-3 CN 7 - no facial asymmetry CN 8 - intact hearing CN 9, 10 - palate symmetric, uvula midline, no deviation CN 11 - shoulder shrug full strength CN 12 - tongue protrudes midline Sensory: intact to light touch Coordination: intact with finger to nose testing Gait: deferred due to fall risk Muscle Tone: normal Muscle exam: strength 5/5 upper and lower extremities and no drift National [place] of Health Stroke Scale: 1A. LOC: 0 1B. Question: 0 1C. Commands: 0 2. Gaze: 0 3. Visual Moss: 0 4. Facial Palsy: 0 5A. Arm Left: 0 5B. Arm Right: 0 6A. Leg Left: 0 6B. Leg Right: 0 7. Ataxia: 0 8. Sensory: 0 9. Aphasia: 0 10. Dysarthria: 0 11. Extinction: 0 Total: 0 LABS Chemistry Panel: Lab results within last 7 days (see chart for full results) Units 02/28/23 0459 02/27/23 1044 02/27/23 0433 02/26/23 0448 02/25/23 0724 02/24/23 1203 02/24/23 0635 02/23/23 0727 02/22/23 0632 02/21/23 0631 Sodium mmol/L 136 -- 138 138 136 137 139 138 139 141 Potassium mmol/L 3.9 4.3 5.3* 3.6 4.7 3.9 3.8 3.8 3.9 4.0 Chloride mmol/L 103 -- 108* 105 104 102 104 103 105 103 CO2 mmol/L 25 -- 21* 25 20* 24 27 28 26 33* BUN mg/dL 10 -- 14 9 10 15 15 15 17 17 Creatinine mg/dL 0.6 -- 0.8 0.6 0.6 0.6 0.6 0.6 0.6 0.6 Estimated Glomerular Filtration Rate mL/min >90 -- 89 >90 >90 >90 >90 >90 >90 & gt;90 Glucose mg/dL 90 -- 88 79 80 174* 100 86 86 96 Calcium mg/dL 7.7* -- 8.4 8.3* 8.4 8.0* 8.8 8.7 9.1 9.0 Magnesium mg/dL 2.3 -- 2.3 2.5 2.4 2.2 -- -- 2.3 2.3 Phosphorus mg/dL 3.0 -- 3.1 2.6 2.9 2.6 -- -- 2.5 3.0 Anion Gap mmol/L 8 -- 9 8 12 11 8 7 8 5* Complete Blood Count: Lab results within last 7 days (see chart for full results) Units 02/28/23 0459 02/27/23 0433 02/26/23 0448 02/25/23 0709 02/24/23 1203 02/24/23 0635 02/23/23 0727 WBC K/uL 9.56 9.11 6.15 8.09 6.21 7.62 6.80 HGB g/dL 8.4* 10.5* 9.8* 10.6* 9.6* 10.3* 10.4* HCT % 26.3* 30.9* 30.1* 29.6* 29.3* 30.5* 32.3* PLT K/uL 354 372 332 331 314 334 314 MCV fL 106.0 100.0 102.7 100.7 104.3 100.3 103.9 Lipids: Latest Reference Range & Units 02/23/23 07:27 LDL Cholesterol <=129 mg/dL 73 A1C: Lab Results Component Value Date/Time [facility] 5.6 02/23/2023 07:27 AM HEMOGLOBIN A1C - [facility] 5.1 05/17/2002 05:05 PM RECENT IMAGE IMPRESSIONS No imaging results in the last 72 hours OTHER STUDIES REVIEWED CT HEAD/BRAIN WO CONTRAST 02/23/2023 IMPRESSION: No evidence of large, acute territorial infarction or intracranial hemorrhage. Small chronic infarction within the head of the left caudate nucleus/sumner radiata. Chronic microvascular white matter disease and parenchymal volume loss. MRI Brain Deferred due to presence of PPM DSA 02/24/23 Impression: 1. Severe (>95%) left carotid stenosis at the carotid origin 2. Otherwise normal diagnostic cerebral angiogram without evidence of aneurysm, AVM, or dAVF. 3. Normal capillary and venous filling pattern, all major sinuses appear patent. Recommendations: 1. Will discuss timing of intervention if needed. 2. Continue Aspirin and Plavix as before, no change. TTE 02/24/23 LV ejection fraction is 50-54% (normal). The septal motion is abnormal consistent with intrventricular conduction delay. The regional left ventricular wall motion is otherwise normal. There is diffuse right ventricular hypokinesis. The right ventricular systolic function is mildly reduced . The aortic valve is mildly calcified. Image and Doppler assessment of aortic stenosis severity is discordant: Mild to moderate aortic stenosis is suspected. 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 LTM did not detect clinical or electrographic seizure activity this far and all previous routine EEGs have been wnl. Cannot rule out convulsive syncope, vasovagal event, or a consequence of significant atherosclerotic disease affecting perfusion that could have contributed to the events leading to his transfer to [facility]. Subsequently this hospitalization he was found to have new RLE weakness, high suspicion for stroke not yet visible on CTH vs symptomatic L ICA stenosis. MRI Brain could not be done due to pacemaker. Had a DSA by SUDHA 02/24 which revealed >95% LICA stenosis without acute intervention. Subsequentlyhe became hypotensive to the 40s with jaw pain and was transferred to NSICU for observation. He gradually had improvement in his weakness, ambulating with a walker with physical therapy. Subsequentlymaintained blood pressure without pressor support. Family elected for 02/27/23 carotid stent placement. RECOMMENDATIONS/PLAN: Watershed infarct due to symptomatic LICA stenosis (Right LE weakness) - Status post 02/[address] Quevedo - Clopidogrel resumed this morning (PRU 92, defer dosage adjustment to neurosurgery). - continue DAPT per neurosurgery. - Continue Simvastatin 40 mg daily (moderate intensity) - PT/OT Postop hypotension - Norepi stopped, care per [facility] History of ?seizure disorder 2/2 cardiac arrest - No epileptogenic activities were captured on LTM (stopped 02/24/23) - Continue ELECTRONIC TRAIN CONTROL TECHNICIAN tegretol 200 TID Rest per ICU team Disposition: Pending repeat O.T. and P.T evaluation CODE STATUS: Full Code Discussion of adv directives occurred with - adult: Not Discussed due to patient's condition Prior to Admission medications Medication Sig Last Dose Discont. Baclofen 10 MG Oral Tablet (Lioresal) Take 1 Tablet by mouth 3 times a day as needed for Muscle spasms. Unknown diazePAM 5 MG Oral Tablet (Valium) Take 2 Tablets by mouth every 6 hours as needed for Muscle spasms for up to 15 days. Unknown predniSONE 20 MG Oral Tablet (Deltasone) Take 2 Tablets by mouth daily for 3 days, THEN 1.5 Tabletsdaily for 2 days, THEN 1 Tablet daily for 2 days, THEN 0.5 Tablets daily for 1 day. Do not start before February 22, 2023. Unknown Loratadine 10 MG Oral Capsule Take 1 Capsule by mouth in the morning. Unknown tiZANidine HCl 4 MG Oral Capsule Take 1 Capsule by mouth 3 times a day as needed for Muscle spasms.Unknown Sucralfate 1 GM/10ML Oral Suspension (Carafate) Take 10 mL by mouth in the morning and 10 mL at noon and 10 mL in the evening and 10 mL before bedtime. Unknown oxyCODONE HCl 5 MG Oral Tablet (Oxy IR) Take 1 Tablet by mouth every 4 hours as needed for Pain, Severe. Unknown traMADol HCl 50 MG Oral Tablet (Ultram) Take by mouth 0.5 Tablets every 6 hours as needed for Pain,Severe (pain intensity 7 to 10/10). Unknown Calcium Carbonate-Vitamin D 500-200 MG-UNIT Oral Tablet Take by mouth 1 Tablet at noon AND 1 Tabletin the evening. Do not start before February 26, 2022. Unknown GetGo Rolling Walker To assist with proper walking Unknown Lidocaine 4 % External Patch (Aspercreme) Place topically on the skin 1 Patch in the morning. Do not start before February 26, 2022. Unknown Vitamin D3 25 MCG (1000 UT) Oral Tablet (Vitamin D3) Take by mouth 2 Tablets in the morning. Do notstart before February 26, 2022. Unknown Budesonide-Formoterol Fumarate 160-4.5 MCG/ACT Inhalation Aerosol (Symbicort) Inhale 2 Puffs by mouth in the morning and 2 Puffs before bedtime. Unknown Clopidogrel Bisulfate 75 MG Oral Tablet (pLAVix) Take 1 Tablet by mouth in the morning. Unknown Diclofenac Sodium 1 % External Gel (Voltaren) APPLY 1 G TOPICALLY 3 TIMES A DAY Unknown Famotidine 20 MG Oral Tablet (Pepcid) TAKE 1 TABLET BY MOUTH DAILY BEFORE A MEAL Unknown Fluticasone Propionate 50 MCG/ACT Nasal Suspension (Flonase) SPRAY 2 SPRAYS INTO EACH NOSTRIL EVERYDAY Unknown Folic Acid 1 MG Oral Tablet Take 1 Tablet by mouth in the morning. Unknown Mirtazapine 30 MG Oral Tablet (Remeron) Take 1 Tablet by mouth at bedtime. Unknown Tamsulosin HCl 0.4 MG Oral Capsule (Flomax) Take 2 Capsules by mouth in the morning. Unknown acetaminophen (TYLENOL) 325 MG Tablet Take 2 Tabs by mouth every 6 hours as needed for Pain. Unknown docusate sodium (COLACE) 100 MG Capsule Take 1 Cap by mouth 2 times a day. Unknown polyethylene glycol 3350 (MIRALAX) packet Take 1 Packet by mouth daily. Unknown Albuterol Sulfate (VENTOLIN HFA) 108 (90 Base) MCG/ACT AERS Inhale 2 Puffs by mouth every 4 hours as needed for Shortness of Breath or Wheezing. Unknown Aspirin 81 MG Oral Tablet Delayed Release Take 1 Tablet by mouth in the morning. Unknown pantoprazole (PROTONIX) 40 MG TBEC Take 1 Tablet by mouth in the morning and 1 Tablet before bedtime. Unknown finasteride (PROSCAR) 5 MG Tablet Take 1 Tablet by mouth in the morning. Unknown furosemide (LASIX) 20 MG Tablet Take 1 Tablet by mouth daily as needed (chest pressure / weight gain). Unknown KLOR-CON 10 10 MEQ TBCR Take 1 Tablet by mouth in the morning. Unknown metoprolol succinate XL (TOPROL XL) 25 MG TB24 Take 0.5 Tablets by mouth in the morning. Unknown simvastatin (ZOCOR) 40 MG Tablet Take 1 Tablet by mouth every evening. Unknown TEGRETOL 200 MG PO TABS one pill three times daily Unknown Current Facility-Administered Medications Medication Dose Route Frequency Provider Last Rate Last Admin Acetaminophen (Tylenol) tab 650 mg 650 mg Oral Q6H Ruba Dhillon DO 650 mg at 348955 Albuterol Sulfate (Proventil) (2.5 MG/3ML) 0.083% inhalation solution 2.5 mg 2.5 mg Nebulizer Q4H PRN Ruba Dhillon DO 2.5 mg at 02/28/23 0512 aspirin enteric coated tab 81 mg 81 mg Oral Daily(AM) Ruba Dhillon DO 81 mg at 02/27/23 0821 Baclofen (Lioresal) tab 10 mg 10 mg Oral TID(AM/NOON/HS) Ruba Dhillon DO 10 mg at 02/27/232120 carBAMazepine (Tegretol) tab 200 mg 200 mg Oral TID(AM/NOON/HS) Ruba Dhillon DO 200 mg at 02/27/232120 chlorHEXIDINE (Periogard) 0.12 % oral rinse 15 mL 15 mL Oral mucosal membrane BID (799,1999) Ruba Dhillon DO 15 mL at 02/27/231958 clopidogrel (pLAVix) tab 75 mg 75 mg Oral Daily(AM) Ever Stuart MD Docusate Sodium (Colace) cap 100 mg 100 mg Oral Q12H Ruba Dhillon DO 100 mg at 02/27/231958 Enoxaparin (Lovenox) inj 40 mg 40 mg Subcutaneous Daily 1000 Ruba Dhillon DO 40 mg at02/26/23 0854 Famotidine (Pepcid) tab 20 mg 20 mg Oral Daily(AM) Ruba Dhillon DO 20 mg at 02/27/23 0821 fluticasone (Flonase) nasal inhaler 2 [place] 2 [place] Each Nostril Daily(AM) Ruba Dhillon DO 2 [place] at 02/27/23 0821 fluticasone furoate-vilanterol (BREO ellipta) 200-25 MCG/ACT inhaler 1 Puff 1 Puff Inhalation Daily(AM) Ruba Dhillon DO 1 Puff at 02/27/23 0821 folic acid tab 1 mg 1 mg Oral Daily(AM) Ruba Dhillon DO 1 mg at 02/27/23 0821 isolyte-S pH 7.4 infusion Intravenous Continuous Jocelyn Dora Kin, MD 50 mL/hr at 02/27/23 1604 Restarted at 02/27/23 1604 Lidocaine (Aspercreme) 4 % patch 1 Patch 1 Patch Transdermal Daily(AM) Ruba Dhillon DO 1 Patch at 02/27/23 0820 Mirtazapine (Remeron) tab 30 mg 30 mg Oral HS Ruba Dhillon DO 30 mg at 02/27/23 2120 NORepinephrine (Levophed) 4 mg in 250 ml D5W STANDARD CONCENTRATION 16 mcg/ml 0-30 mcg/min Peripheral IV Titrate Janette Pedroza PA-C 7.5 mL/hr at 02/27/23 2316 2 mcg/min at 02/27/23 2316 Oral Hygiene: Mouth Swab with dentifrice Oral Q4H Limited (00;04;12;16) Ruba Dhillon DO Given at 02/27/23 1600 Polyethylene Glycol 3350 (Miralax) oral powder 17 g 1 Packet Oral Daily PRN Ruba Dhillon DO predniSONE (Deltasone) tab 20 mg 20 mg Oral Daily(AM) Ruba Dhillon DO 20 mg at 02/27/23 0821 Followed by [START ON 03/01/2023] predniSONE (Deltasone) tab 10 mg 10 mg Oral Daily(AM) Ruba Dhillon DO Simvastatin (Zocor) tab 40 mg 40 mg Oral QPM 2000 Ruba Dhillon DO 40 mg at 02/27/23 1959 sodium chloride 0.9 % flush peripheral nikky 3 mL 3 mL IV Push Q8H Ruba Dhillon DO 3 mLat 02/27/23 2200 sodium chloride 0.9 % flush/inj 3 mL 3 mL IV Push PRN Ruba Dhillon DO tamsulosin (Flomax) cap 0.8 mg 0.8 mg Oral Daily(AM) Ruba Dhillon DO 0.8 mg at 02/27/23 0822 Associated attestation - Daniel Mak MD - 02/28/2023 5:18 PM EDT I saw and evaluated the patient on 02/28/2023. I have reviewed the trainee note and agree. Status post carotid stenting yesterday. Off pressors this morning. Clinically doing well. PRU 92 today. Resumed Plavix at half dose (37.5 mg) daily. Okay to discharge later this afternoon from neurology standpoint. * Jose Hare PA-C - 02/27/2023 9:10 PM EDT [facility] White - Night Coverage Progress Note Notified by nursing of hypotension. SBPs in 80s, MAPs low 60s. Seen pt at bedside. Denies any current symptoms (chest pain, SOB, abd pain, dizziness, nausea). Appears euvolemic on examination. Stablerespiratory status. Making adequate urine. POC cardiac US performed. IVC < 50% collapsible on examination. LV with good squeeze. No obviousRV dilation. Spoke w/ Neurosurgery team regarding BP goals. Will plan for SBP 100-140. Was given IVF bolus earlier and BP was minimally responsive. Given his cardiac history, will start low dose norepinephrine for goal SBP > 100. Hold tonight's beta litzy dose. Discussed w/ Dr. Brooks who assisted with bedside ultrasound. [facility] time 30 minutes. * Angus Vicente MD - 02/27/2023 7:32 AM EDT [facility] - PROGRESS NOTE [address] [address] Name: James Ibarra Location: [facility] A436/A Date: 02/27/2023 Time: 7:32 AM Date of admission: 02/22/2023 Hospital length of stay: 5 days Subjective PATIENT DESCRIPTION: The patient is a 82 year old male coming to the ICU from the OR after he became hypotensive during his digital subtraction angiography (DSA) for evaluation of bilateral internal carotid artery stenosis. CLINICAL TIMELINE: 02/22 Transferred to [facility] from [facility] after episode of unresponsiveness 02/22 CTA showed bilateral carotid artery stenosis 02/24 DSA with neurosurgery, became hypotensive during procedure 02/24 NSICU for observation and workup 02/24 Multiple episodes of change in mental status 02/25 Continued monitoring and resuscitation in NSICU 02/26 Continued monitoring in NSICU, no events 02/27 To operating room for DSA with nsgy 24-HOUR INTERIM HISTORY: NAEO K of 5.3 this AM, repeat 4.3 DSA with nsgy Objective CONSTITUTIONAL DATA / OBJECTIVE: Vital Signs (Most Recent): Pulse: 61 (02/27/23 0400) BP: 139/58 (02/27/23 0400) Resp: 21 (02/27/23 0400) Temp: 36.8 C (98.2 F) (02/27/23 0400) SpO2: 100 % (02/27/23 0000) Vital Signs (Last 24 Hours): Pulse Av Min: 60 Max: 86 No data recorded Most Recent Systolic BP Av.4 mmHg Min: 90 mmHg Max: 153 mmHg Most Recent Diastolic BP Av mmHg Min: 34 mmHg Max: 76 mmHg Resp Av.3 Min: 19 Max: 31 Most Recent Temperature Av.8 C Min: 36.61 C Max: 36.89 C SpO2 Av % Min: 96 % Max: 100 % Physical Examination: Constitutional: no acute distress, (+) cachectic CV: normal rate Abdomen: normal: soft, bowel sounds normal, no masses, tenderness or organomegaly Musculoskeletal: (+) fat mass loss: Severe Extremities: no clubbing, cyanosis, or edema, otherwise grossly normal, warm, and dry, diffuse bruising and petechiae present Skin: warm, dry, intact: Neuro: alert, conversing normally; AAOx3; normal mental status exam, some difficulty with finger tonose testing on left hand; Glascow Coma Score 15; sensory normal, strength 1/5 on right leg, 3/5 onleft leg Intake & Output Summary (Last 24 hours): Intake/Output Summary (Last 24 hours) at 02/27/2023 0732 Last data filed at 02/27/2023 0400 Gross per 24 hour Intake 150 ml Output 800 ml Net -650 ml Laboratory Values: I have personally reviewed the results as of 2:45 PM on 02/27/2023 Chemistry Panel: Lab results within last 7 days (see chart for full results) Units 02/27/23 1044 02/27/23 0433 02/26/23 0448 02/25/23 0724 02/24/23 1203 02/24/23 0635 02/23/23 0727 02/22/23 0632 02/21/23 0631 Sodium mmol/L -- 138 138 136 137 139 138 139 141 Potassium mmol/L 4.3 5.3* 3.6 4.7 3.9 3.8 3.8 3.9 4.0 Chloride mmol/L -- 108* 105 104 102 104 103 105 103 CO2 mmol/L -- 21* 25 20* 24 27 28 26 33* BUN mg/dL -- 14 9 10 15 15 15 17 17 Creatinine mg/dL -- 0.8 0.6 0.6 0.6 0.6 0.6 0.6 0.6 Estimated Glomerular Filtration Rate mL/min -- 89 >90 >90 >90 >90 >90 >90 >90 Glucose mg/dL -- 88 79 80 174* 100 86 86 96 Calcium mg/dL -- 8.4 8.3* 8.4 8.0* 8.8 8.7 9.1 9.0 Magnesium mg/dL -- 2.3 2.5 2.4 2.2 -- -- 2.3 2.3 Phosphorus mg/dL -- 3.1 2.6 2.9 2.6 -- -- 2.5 3.0 Anion Gap mmol/L -- 9 8 12 11 8 7 8 5* Complete Blood Count: Lab results within last 7 days (see chart for full results) Units 02/27/23 0433 02/26/23 0448 02/25/23 0709 02/24/23 1203 02/24/23 0635 02/23/23 0727 02/21/23 0631 WBC K/uL 9.11 6.15 8.09 6.21 7.62 6.80 7.61 HGB g/dL 10.5* 9.8* 10.6* 9.6* 10.3* 10.4* 11.0* HCT % 30.9* 30.1* 29.6* 29.3* 30.5* 32.3* 34.3* PLT K/uL 372 332 331 314 334 314 271 MCV fL 100.0 102.7 100.7 104.3 100.3 103.9 106.2 Radiographic Studies: I have personally reviewed the results as of 7:32 AM on 02/27/2023 No imaging results in the last 24 hours Assessment & Plan Principal Problem: Convulsions (HCC) POA: Yes Active Problems: GERD (gastroesophageal reflux disease) POA: Yes Tobacco use disorder POA: Yes Old myocardial infarct POA: Yes Overview: Modified by Acute [place] Protocol #5. Dyslipidemia, goal LDL below 100 POA: Yes Overview: Per Lipid Taxonomy. 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) POA: Unknown POA = Present On Admission NEUROLOGIC: Analgesia Tylenol 650mg q6 Sedation N/A Delirium Sleep protocol Seizure history (remote) Tegretol ELECTRONIC TRAIN CONTROL TECHNICIAN mirtazapine q4h neuro checks Bilateral Carotid Artery Stenosis Stent with nsgy today PULMONARY / RESPIRATORY: Hx of COPD Breo ellipta daily (ELECTRONIC TRAIN CONTROL TECHNICIAN symbicort), ELECTRONIC TRAIN CONTROL TECHNICIAN albuterol PRN IS, pulmonary hygiene CARDIOVASCULAR: Hypovolemic vs. Cardiogenic vs. Septic Shock - likely hypovolemic (improved) Off levo as of 1999 on 02/24 s/p 0.5 + 1 L bolus isolyte Hemodynamically stable Troponin 52, 47 > stop trending ECHO read: The septal motion is abnormal consistent with intrventricular conduction delay. The regional left ventricular wall motion is otherwise normal. There is diffuse right ventricular hypokinesis. The right ventricular systolic function is mildly reduced . The aortic valve is mildly calcified. Image and Doppler assessment of aortic stenosis severity is discordant: Mild to moderate aortic stenosis is suspected. 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, plavix, metoprolol, simvastatin Plavix held this AM per nsgy Intra-op hypotension likely due to intravascular volume depletion based on response to fluid bolus, collapsible IVC on POCUS; cardiogenic shock less likely due to normal-appearing heart on ECHO and lack of significant troponin elevation; septic shock unlikely due to continued normal temperatureand WBC count GASTROINTESTINAL / HEPATOBILIARY: No active issues Diet: NPO for possible stenting Pepcid for GI ppx Senna + colace RENAL / METABOLIC / FLUIDS: No active issues Fluids @ 50mL/h ELECTRONIC TRAIN CONTROL TECHNICIAN finasteride, tamsulosin INFECTIOUS DISEASES: No active issues ENDOCRINE: No active issues HEMATOLOGIC: No active issues DVT/VTE Prophylaxis: SCDs, lovenox MUSCULOSKELETAL / P.T / O.T. / MOBILITY / DERMATOLOGIC: Neck pain + muscle spasms - DJD Baclofen, prednisone taper LINES / DRAINS / TUBES: LINES ALL Duration Peripheral Line Right;Median 22 Gauge 6 days Peripheral Line Right;Upper Arm 20 Gauge 2 days GLOBAL ISSUES: Code Status: Full Code Analgesia: well controlled Sedation: not applicable Delirium/Confusion Assessment Method for ICU (CAM-ICU): positive for hypoactive delirium HOB Elevation: greater than 30 degrees Nutrition: PO DVT Prophylaxis: chemoprophylaxis with pneumatic compression devices Stress Ulcer Prophylaxis: Proton Pump Inhibitor. Glycemic Control: well controlled Central Line Necessity Reviewed: not applicable Hernandez: reviewed and still needed at this time Disposition: transfer to floor, tonight vs. tomorrow - will return to neuro stroke service Patient's decisional capacity: has capacity to make decisions Communication with Patient/Family: No meeting held. Goals of Care: improve mental status to baseline Patient was seen and discussed on rounds with MD Jocelyn Howard MD General Surgery PGY1 I saw and evaluated the patient today. I have reviewed the trainee note and agree. 82 year old male with hypotension after angiogram. Injury complex/ medical problems: BPH Seizures Dyslipidemia Malnutrition Hypotension GERD Depression PUD Tobacco abuse COPD Delirium Shock Skin tear LUE Procedures/ operations: Diagnostic cerebral angiogram02/24 Last 24 hours: Stable overnight, OR for carotid stent today Neuro:tylenol, baclofen, tegretol, remeron Respiratory:breo ellipta, albuterol CV:plavix, zocor, ELECTRONIC TRAIN CONTROL TECHNICIAN metoprolol Abdomen:NPO, pepcid, bowel regimen Renal:flomax, IVF at 50 ml/h Endo:prednisone, glucose checks ID:no issues Heme:lovenox for DVT ppx MSK:PT/OT Lines:PIV I have personally [id number] of critical care time exclusive of time spent on separatelybillable procedures. Time includes review of laboratory data, radiology results and monitoring for potential decompensation. Interventions were performed as documented above. Upon my evaluation, this patient had a high probability of imminent or life- threatening deterioration due tostroke, which required my direct attention, intervention, and personal management. * Emory Blanco DO - 02/27/2023 6:55 AM EDT PROGRESS NOTE - Neurology [facility] [place]-[address] [address] Name: James Ibarra Location: [facility] A436/A Date: 02/27/2023 Time: 6:55 AM [facility] A436/A SUMMARY: - James Ibarra is a 82 year old patient initially seen by Neurology for concern of seizure activity. He subsequently developed RLE weakness determined to be symptomatic left ICA stenosis. Hospital day:5 CHANGES SINCE LAST VISIT - No acute changes overnight - Am plavix was held with PRU of 13. SUBJECTIVE: - Patient alert and pleasant in bed.He is aware of today's planned surgery. - Seen by PT and was surprise to find that he could ambulate 40 feet with walker and transition with minimal assistance. 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 Drug use: Never OBJECTIVE: Physical Examination Most Recent Vital Signs: BP: 139 mmHg/58 mmHg (02/27/23 0400) Pulse: 61 (02/27/23 0400) Temp: 36.78 C (02/27/23 0400) Resp: 21 (02/27/23 0400) SpO2: 100 % (02/27/23 0000) Weight: 46.3 kg (102 lb 1.2 oz) (02/26/23 0800) Height: 170.2 cm (5' 7") (02/22/23 1330) Body mass index is 15.99 kg/m. Vital Signs Last 24 Hours: Systolic BP: Most Recent Systolic BP Av.7 mmHg Min: 90 mmHg Max: 153 mmHg Temperature: Most Recent Temperature Av.8 C Min: 36.61 C Max: 36.89 C Pulse: Pulse Av.9 Min: 60 Max: 86 Respirations: Resp Av.5 Min: 19 Max: 31 SpO2: SpO2 Av % Min: 96 % Max: 100 % General Examination: Constitutional: Appearance non-obese and no deformities, LTM intact Head/face, ears, nose, throat: normocephalic, atraumatic Cardiovascular: regular rate and regular rhythm Psychiatric: normal judgement and insight, normal mood and normal affect Neurologic Examination: Ophthalmoscopic: deferred due to inadequate dilation Mental Status and Orientation: awake, alert, oriented x 3 Memory: intact to recent and remote recall Attention: normal Knowledge:normal Language: no aphasia Speech: no dysarthria Cranial Nerves: CN 2 - pupils round, equal, reactive to light CN 3, 4, 6 - extra-ocular movements intact and no nystagmus CN 5 - facial sensation intact V1-3 CN 7 - no facial asymmetry CN 8 - intact hearing CN 9, 10 - palate symmetric, uvula midline, no deviation CN 11 - shoulder shrug full strength CN 12 - tongue protrudes midline Sensory: intact to light touch Coordination: intact with finger to nose testing Gait: deferred due to fall risk Muscle Tone: normal Muscle exam: Muscle REDUCED, PATIENT IS CACHETIC Arm Right Left Leg Right Left Deltoid 5/5 5/5 Iliopsoas 4/5 5/5 Biceps 5/5 5/5 Quads 5/5 5/5 Triceps 5/5 5/5 Wrist Extension 5/5 5/5 Ankle Dorsi Flexion 4/5 5/5 Wrist Flexion 5/5 5/5 Ankle Plantar Flexion 5/5 5/5 Reflexes: Brachioradialis Biceps Triceps Patellar Achilles Plantars Ginny's Right 2+ 2+ 2+ 2+ 2+ downgoing not present Left 2+ 2+ 2+ 2+ 2+ downgoing not present National [place] [facility] Stroke Scale: 1A. LOC: 0 1B. Question: 0 1C. Commands: 0 2. Gaze: 0 3. Visual Moss: 0 4. Facial Palsy: 0 5A. Arm Left: 0 5B. Arm Right: 0 6A. Leg Left: 0 6B. Leg Right: 1 7. Ataxia: 0 8. Sensory: 0 9. Aphasia: 0 10. Dysarthria: 0 11. Extinction: 0 Total: 1 LABS Chemistry Panel: Lab results within last 7 days (see chart for full results) Units 02/27/23 0433 02/26/23 0448 02/25/23 0724 02/24/23 1203 02/24/23 0635 02/23/23 0727 02/22/23 0632 02/21/23 0631 02/20/23 0818 Sodium mmol/L 138 138 136 137 139 138 139 141 142 Potassium mmol/L 5.3* 3.6 4.7 3.9 3.8 3.8 3.9 4.0 4.5 Chloride mmol/L 108* 105 104 102 104 103 105 103 102 CO2 mmol/L 21* 25 20* 24 27 28 26 33* 31 BUN mg/dL 14 9 10 15 15 15 17 17 24* Creatinine mg/dL 0.8 0.6 0.6 0.6 0.6 0.6 0.6 0.6 0.6 Estimated Glomerular Filtration Rate mL/min 89 >90 >90 >90 >90 >90 >90 >90 >90 Glucose mg/dL 88 79 80 174* 100 86 86 96 104 Calcium mg/dL 8.4 8.3* 8.4 8.0* 8.8 8.7 9.1 9.0 9.2 Magnesium mg/dL 2.3 2.5 2.4 2.2 -- -- 2.3 2.3 2.3 Phosphorus mg/dL 3.1 2.6 2.9 2.6 -- -- 2.5 3.0 -- Anion Gap mmol/L 9 8 12 11 8 7 8 5* 9 Complete Blood Count: Lab results within last 7 days (see chart for full results) Units 02/27/23 0433 02/26/23 0448 02/25/23 0709 02/24/23 1203 02/24/23 0635 02/23/23 0727 02/21/23 0631 WBC K/uL 9.11 6.15 8.09 6.21 7.62 6.80 7.61 HGB g/dL 10.5* 9.8* 10.6* 9.6* 10.3* 10.4* 11.0* HCT % 30.9* 30.1* 29.6* 29.3* 30.5* 32.3* 34.3* PLT K/uL 372 332 331 314 334 314 271 MCV fL 100.0 102.7 100.7 104.3 100.3 103.9 106.2 Lipids: Latest Reference Range & Units 02/23/23 07:27 LDL Cholesterol <=129 mg/dL 73 A1C: Lab Results Component Value Date/Time HEMOGLOBIN A1C - [employer] 5.6 02/23/2023 07:27 AM HEMOGLOBIN A1C - [employer] 5.1 05/17/2002 05:05 PM RECENT IMAGE IMPRESSIONS No imaging results in the last 72 hours OTHER STUDIES REVIEWED CT HEAD/BRAIN WO CONTRAST 02/23/2023 IMPRESSION: No evidence of large, acute territorial infarction or intracranial hemorrhage. Small chronic infarction within the head of the left caudate nucleus/sumner radiata. Chronic microvascular white matter disease and parenchymal volume loss. MRI Brain Deferred due to presence of PPM DSA 02/24/23 Impression: 1. Severe (>95%) left carotid stenosis at the carotid origin 2. Otherwise normal diagnostic cerebral angiogram without evidence of aneurysm, AVM, or dAVF. 3. Normal capillary and venous filling pattern, all major sinuses appear patent. Recommendations: 1. Will discuss timing of intervention if needed. 2. Continue Aspirin and Plavix as before, no change. TTE 02/24/23 LV ejection fraction is 50-54% (normal). The septal motion is abnormal consistent with intrventricular conduction delay. The regional left ventricular wall motion is otherwise normal. There is diffuse right ventricular hypokinesis. The right ventricular systolic function is mildly reduced . The aortic valve is mildly calcified. Image and Doppler assessment of aortic stenosis severity is discordant: Mild to moderate aortic stenosis is suspected. 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 LTM did not detect clinical or electrographic seizure activity this far and all previous routine EEGs have been wnl. Cannot rule out convulsive syncope, vasovagal event, or a consequence of significant atherosclerotic disease affecting perfusion that could have contributed to the events leading to his transfer to [facility]. Subsequently this hospitalization he was found to have new RLE weakness, high suspicion for stroke not yet visible on CTH vs symptomatic L ICA stenosis. MRI Brain could not be done due to pacemaker. Had a DSA by SUDHA 02/24 which revealed >95% LICA stenosis without acute intervention. Subsequentlyhe became hypotensive to the 40s with jaw pain and was transferred to NSICU for observation. He gradually had improvement in his weakness, ambulating with a walker with physical therapy. Subsequentlymaintained blood pressure without pressor support. Family elected for 02/27/23 carotid stent placement. RECOMMENDATIONS/PLAN: Watershed infarct due to symptomatic LICA stenosis (Right LE weakness) - neurosurgery following appreciate recs Plan for Carotid artery stent placement today. - continue correction ELECTRONIC TRAIN CONTROL TECHNICIAN DAPT (For coronary stents) - Continue Simvastatin 40 mg daily (moderate intensity) - PT/OT History of ?seizure disorder 2/2 cardiac arrest - No epileptogenic activities were captured on LTM (stopped 02/24/23) - Continue ELECTRONIC TRAIN CONTROL TECHNICIAN tegretol 200 TID Rest per ICU team Rehab Therapy Plans: O.T. and P.T CODE STATUS: Full Code Discussion of adv directives occurred with - adult: Not Discussed due to patient's condition Prior to Admission medications Medication Sig Last Dose Discont. Baclofen 10 MG Oral Tablet (Lioresal) Take 1 Tablet by mouth 3 times a day as needed for Muscle spasms. Unknown diazePAM 5 MG Oral Tablet (Valium) Take 2 Tablets by mouth every 6 hours as needed for Muscle spasms for up to 15 days. Unknown predniSONE 20 MG Oral Tablet (Deltasone) Take 2 Tablets by mouth daily for 3 days, THEN 1.5 Tabletsdaily for 2 days, THEN 1 Tablet daily for 2 days, THEN 0.5 Tablets daily for 1 day. Do not start before February 22, 2023. Unknown Loratadine 10 MG Oral Capsule Take 1 Capsule by mouth in the morning. Unknown tiZANidine HCl 4 MG Oral Capsule Take 1 Capsule by mouth 3 times a day as needed for Muscle spasms.Unknown Sucralfate 1 GM/10ML Oral Suspension (Carafate) Take 10 mL by mouth in the morning and 10 mL at noon and 10 mL in the evening and 10 mL before bedtime. Unknown oxyCODONE HCl 5 MG Oral Tablet (Oxy IR) Take 1 Tablet by mouth every 4 hours as needed for Pain, Severe. Unknown traMADol HCl 50 MG Oral Tablet (Ultram) Take by mouth 0.5 Tablets every 6 hours as needed for Pain,Severe (pain intensity 7 to 10/10). Unknown Calcium Carbonate-Vitamin D 500-200 MG-UNIT Oral Tablet Take by mouth 1 Tablet at noon AND 1 Tabletin the evening. Do not start before February 26, 2022. Unknown GetGo Rolling Walker To assist with proper walking Unknown Lidocaine 4 % External Patch (Aspercreme) Place topically on the skin 1 Patch in the morning. Do not start before February 26, 2022. Unknown Vitamin D3 25 MCG (1000 UT) Oral Tablet (Vitamin D3) Take by mouth 2 Tablets in the morning. Do notstart before February 26, 2022. Unknown Budesonide-Formoterol Fumarate 160-4.5 MCG/ACT Inhalation Aerosol (Symbicort) Inhale 2 Puffs by mouth in the morning and 2 Puffs before bedtime. Unknown Clopidogrel Bisulfate 75 MG Oral Tablet (pLAVix) Take 1 Tablet by mouth in the morning. Unknown Diclofenac Sodium 1 % External Gel (Voltaren) APPLY 1 G TOPICALLY 3 TIMES A DAY Unknown Famotidine 20 MG Oral Tablet (Pepcid) TAKE 1 TABLET BY MOUTH DAILY BEFORE A MEAL Unknown Fluticasone Propionate 50 MCG/ACT Nasal Suspension (Flonase) SPRAY 2 SPRAYS INTO EACH NOSTRIL EVERYDAY Unknown Folic Acid 1 MG Oral Tablet Take 1 Tablet by mouth in the morning. Unknown Mirtazapine 30 MG Oral Tablet (Remeron) Take 1 Tablet by mouth at bedtime. Unknown Tamsulosin HCl 0.4 MG Oral Capsule (Flomax) Take 2 Capsules by mouth in the morning. Unknown acetaminophen (TYLENOL) 325 MG Tablet Take 2 Tabs by mouth every 6 hours as needed for Pain. Unknown docusate sodium (COLACE) 100 MG Capsule Take 1 Cap by mouth 2 times a day. Unknown polyethylene glycol 3350 (MIRALAX) packet Take 1 Packet by mouth daily. Unknown Albuterol Sulfate (VENTOLIN HFA) 108 (90 Base) MCG/ACT AERS Inhale 2 Puffs by mouth every 4 hours as needed for Shortness of Breath or Wheezing. Unknown Aspirin 81 MG Oral Tablet Delayed Release Take 1 Tablet by mouth in the morning. Unknown pantoprazole (PROTONIX) 40 MG TBEC Take 1 Tablet by mouth in the morning and 1 Tablet before bedtime. Unknown finasteride (PROSCAR) 5 MG Tablet Take 1 Tablet by mouth in the morning. Unknown furosemide (LASIX) 20 MG Tablet Take 1 Tablet by mouth daily as needed (chest pressure / weight gain). Unknown KLOR-CON 10 10 MEQ TBCR Take 1 Tablet by mouth in the morning. Unknown metoprolol succinate XL (TOPROL XL) 25 MG TB24 Take 0.5 Tablets by mouth in the morning. Unknown simvastatin (ZOCOR) 40 MG Tablet Take 1 Tablet by mouth every evening. Unknown TEGRETOL 200 MG PO TABS one pill three times daily Unknown Current Facility-Administered Medications Medication Dose Route Frequency Provider Last Rate Last Admin Acetaminophen (Tylenol) tab 650 mg 650 mg Oral Q6H Ruba Dhillon, DO 650 mg at 513 Albuterol Sulfate (Proventil) (2.5 MG/3ML) 0.083% inhalation solution 2.5 mg 2.5 mg Nebulizer Q4H PRN Ruba Dhillon, DO 2.5 mg at 02/26/23 1341 aspirin enteric coated tab 81 mg 81 mg Oral Daily(AM) Ruba Dhillon DO 81 mg at 02/26/23 0854 Baclofen (Lioresal) tab 10 mg 10 mg Oral TID(AM/NOON/HS) Ruba Dhillon DO 10 mg at 02/27/23 0513 carBAMazepine (Tegretol) tab 200 mg 200 mg Oral TID(AM/NOON/HS) Ruba Dhillon DO 200 mg at 02/27/23 0513 chlorHEXIDINE (Periogard) 0.12 % oral rinse 15 mL 15 mL Oral mucosal membrane BID (799,1999) Ruba Dhillon DO 15 mL at 02/26/231955 [START ON 02/28/2023] clopidogrel (pLAVix) tab 75 mg 75 mg Oral Daily(AM) Ever Stuart MD Docusate Sodium (Colace) cap 100 mg 100 mg Oral Q12H Ruba Dhillon DO 100 mg at 02/26/231955 Enoxaparin (Lovenox) inj 40 mg 40 mg Subcutaneous Daily 1000 Ruba Dhillon DO 40 mg at02/26/23 0854 Famotidine (Pepcid) tab 20 mg 20 mg Oral Daily(AM) Ruba Dhillon DO 20 mg at 02/26/23 0853 fluticasone (Flonase) nasal inhaler 2 [place] 2 [place] Each Nostril Daily(AM) Ruba Dhillon DO 2 [place] at 02/26/23 0854 fluticasone furoate-vilanterol (BREO ellipta) 200-25 MCG/ACT inhaler 1 Puff 1 Puff Inhalation Daily(AM) Ruba Dhillon DO 1 Puff at 02/26/23 0854 folic acid tab 1 mg 1 mg Oral Daily(AM) Ruba Dhillon DO 1 mg at 02/26/23 0853 isolyte-S pH 7.4 infusion Intravenous Continuous Jocelyn Sanderson MD 50 mL/hr at 02/27/23 0107 New Bag at 02/27/23 0107 Lidocaine (Aspercreme) 4 % patch 1 Patch 1 Patch Transdermal Daily(AM) Ruba Dhillon DO 1 Patch at 02/26/23 1004 metoprolol succinate XL (toPROL XL) tab 12.5 mg 12.5 mg Oral Daily(AM) Angus Vicente MD 12.5 mg at 02/26/23 0855 Mirtazapine (Remeron) tab 30 mg 30 mg Oral HS Ruba Dhillon DO 30 mg at 02/26/23 204 Oral Hygiene: Mouth Swab with dentifrice Oral Q4H Limited (00;04;12;16) Ruba Dhillon DO Given at 02/27/23 0400 Polyethylene Glycol 3350 (Miralax) oral powder 17 g 1 Packet Oral Daily PRN Ruba Dhillon DO predniSONE (Deltasone) tab 20 mg 20 mg Oral Daily(AM) Ruba Dhillon DO Followed by [START ON 03/01/2023] predniSONE (Deltasone) tab 10 mg 10 mg Oral Daily(AM) Ruba Dhillon DO Simvastatin (Zocor) tab 40 mg 40 mg Oral QPM 2000 Ruba Dhillon DO 40 mg at 02/26/23 1956 sodium chloride 0.9 % flush peripheral nikky 3 mL 3 mL IV Push Q8H Ruba Dhillon DO 3 mLat 02/27/23 0600 sodium chloride 0.9 % flush/inj 3 mL 3 mL IV Push PRN Ruba Dhillon DO tamsulosin (Flomax) cap 0.8 mg 0.8 mg Oral Daily(AM) Ruba Dhillon DO 0.8 mg at 02/26/23 0855 Associated attestation - Daniel Mak MD - 02/27/2023 2:44 PM EDT I saw and evaluated the patient on 02/27/2023. I have reviewed the trainee note and agree. Carotid stent with Dr. Quevedo today. PRU is low. Plavix is held. * Angus Vicente MD - 02/26/2023 7:33 AM EDT CCM - PROGRESS NOTE [facility] [place] [address] Name: James Ibarra Location: [facility] A436/[id number] Date: 02/26/2023 Time: 7:33 AM Date of admission: 02/22/2023 Hospital length of stay: 4 days Subjective PATIENT DESCRIPTION: The patient is a 82 year old male coming to the ICU from the OR after he became hypotensive during his digital subtraction angiography (DSA) for evaluation of bilateral internal carotid artery stenosis. CLINICAL TIMELINE: 02/22 Transferred to [facility] from [facility] after episode of unresponsiveness 02/22 CTA showed bilateral carotid artery stenosis 02/24 DSA with neurosurgery, became hypotensive during procedure 02/24 NSICU for observation and workup 02/24 Multiple episodes of change in mental status 02/25 Continued monitoring and resuscitation in NSICU 24-HOUR INTERIM HISTORY: NAEO Objective CONSTITUTIONAL DATA / OBJECTIVE: Vital Signs (Most Recent): Pulse: 73 (02/26/23699) BP: 147/75 (02/26/23699) Resp: 29 (02/26/23699) Temp: 36.6 C (97.9 F) (02/26/23599) SpO2: 99 % (02/26/23699) Vital Signs (Last 24 Hours): Pulse Av.5 Min: 60 Max: 90 No data recorded Most Recent Systolic BP Av.6 mmHg Min: 100 mmHg Max: 150 mmHg Most Recent Diastolic BP Av.1 mmHg Min: 48 mmHg Max: 87 mmHg Resp Av.6 Min: 15 Max: 29 Most Recent Temperature Av.6 C Min: 36.39 C Max: 37.11 C SpO2 Av % Min: 92 % Max: 100 % Physical Examination: Constitutional: no acute distress, (+) cachectic CV: normal rate Abdomen: normal: soft, bowel sounds normal, no masses, tenderness or organomegaly Musculoskeletal: (+) fat mass loss: Severe Extremities: no clubbing, cyanosis, or edema, otherwise grossly normal, warm, and dry, diffuse bruising and petechiae present Skin: warm, dry, intact: Neuro: alert, conversing normally; AAOx3; normal mental status exam, some difficulty with finger tonose testing on left hand; Glascow Coma Score 15; sensory normal, strength 1/5 on right leg, 3/5 onleft leg Intake & Output Summary (Last 24 hours): Intake/Output Summary (Last 24 hours) at 02/26/2023732 Last data filed at 02/26/2023 07 Gross per 24 hour Intake 1287.5 ml Output 1075 ml Net 212.5 ml Laboratory Values: I have personally reviewed the results as of 7:33 AM on 02/26/2023 Chemistry Panel: Lab results within last 7 days (see chart for full results) Units 02/26/23 0448 02/25/23 0724 02/24/23 1203 02/24/23 0635 02/23/23 0727 02/22/23 0632 02/21/23 0631 02/20/23 0818 Sodium mmol/L 138 136 137 139 138 139 141 142 Potassium mmol/L 3.6 4.7 3.9 3.8 3.8 3.9 4.0 4.5 Chloride mmol/L 105 104 102 104 103 105 103 102 CO2 mmol/L 25 20* 24 27 28 26 33* 31 BUN mg/dL 9 10 15 15 15 17 17 24* Creatinine mg/dL 0.6 0.6 0.6 0.6 0.6 0.6 0.6 0.6 Estimated Glomerular Filtration Rate mL/min >90 >90 >90 >90 >90 >90 >90 >90 Glucose mg/dL 79 80 174* 100 86 86 96 104 Calcium mg/dL 8.3* 8.4 8.0* 8.8 8.7 9.1 9.0 9.2 Magnesium mg/dL 2.5 2.4 2.2 -- -- 2.3 2.3 2.3 Phosphorus mg/dL 2.6 2.9 2.6 -- -- 2.5 3.0 -- Anion Gap mmol/L 8 12 11 8 7 8 5* 9 Complete Blood Count: Lab results within last 7 days (see chart for full results) Units 02/26/23 0448 02/25/23 0709 02/24/23 1203 02/24/23 0635 02/23/23 0727 02/21/23 0631 02/20/23 0818 WBC K/uL 6.15 8.09 6.21 7.62 6.80 7.61 10.05 HGB g/dL 9.8* 10.6* 9.6* 10.3* 10.4* 11.0* 12.4* HCT % 30.1* 29.6* 29.3* 30.5* 32.3* 34.3* 36.7* PLT K/uL 332 331 314 334 314 271 255 MCV fL 102.7 100.7 104.3 100.3 103.9 106.2 105.2 Radiographic Studies: I have personally reviewed the results as of 7:33 AM on 02/26/2023 No imaging results in the last 24 hours Assessment & Plan Principal Problem: Convulsions (HCC) POA: Yes Active Problems: GERD (gastroesophageal reflux disease) POA: Yes Tobacco use disorder POA: Yes Old myocardial infarct POA: Yes Overview: Modified by Acute [place] Protocol #5. Dyslipidemia, goal LDL below 100 POA: Yes Overview: Per Lipid Taxonomy. 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) POA: Unknown POA = Present On Admission NEUROLOGIC: Analgesia Tylenol 650mg q6 Sedation N/A Delirium Sleep protocol Seizure history (remote) Tegretol ELECTRONIC TRAIN CONTROL TECHNICIAN mirtazapine q1h neuro checks Bilateral Carotid Artery Stenosis Possible stenting by nsgy, pending pt decision - leaning towards getting the procedure at this time PULMONARY / RESPIRATORY: No active issues IS, pulmonary hygiene CARDIOVASCULAR: Hypovolemic vs. Cardiogenic vs. Septic Shock - likely hypovolemic (improved) Off levo as of 1999 on 02/24 s/p 0.5 + 1 L bolus isolyte Hemodynamically stable Troponin 52, 47 > stop trending ECHO read: The septal motion is abnormal consistent with intrventricular conduction delay. The regional left ventricular wall motion is otherwise normal. There is diffuse right ventricular hypokinesis. The right ventricular systolic function is mildly reduced . The aortic valve is mildly calcified. Image and Doppler assessment of aortic stenosis severity is discordant: Mild to moderate aortic stenosis is suspected. 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, plavix, metoprolol, simvastatin Intra-op hypotension likely due to intravascular volume depletion based on response to fluid bolus, collapsible IVC on POCUS; cardiogenic shock less likely due to normal-appearing heart on ECHO and lack of significant troponin elevation; septic shock unlikely due to continued normal temperatureand WBC count GASTROINTESTINAL / HEPATOBILIARY: No active issues Diet: NPO for possible stenting Pepcid for GI ppx Senna + colace RENAL / METABOLIC / FLUIDS: No active issues Fluids @ 50mL/h ELECTRONIC TRAIN CONTROL TECHNICIAN finasteride, tamsulosin INFECTIOUS DISEASES: No active issues ENDOCRINE: No active issues HEMATOLOGIC: No active issues DVT/VTE Prophylaxis: SCDs, lovenox MUSCULOSKELETAL / P.T / O.T. / MOBILITY / DERMATOLOGIC: Neck pain + muscle spasms - DJD Baclofen, prednisone taper LINES / DRAINS / TUBES: LINES ALL Duration Peripheral Line Right;Median 22 Gauge 5 days Peripheral Line Right;Upper Arm 20 Gauge 1 day GLOBAL ISSUES: Code Status: Full Code Analgesia: well controlled Sedation: not applicable Delirium/Confusion Assessment Method for ICU (CAM-ICU): positive for hypoactive delirium HOB Elevation: greater than 30 degrees Nutrition: PO DVT Prophylaxis: chemoprophylaxis with pneumatic compression devices Stress Ulcer Prophylaxis: Proton Pump Inhibitor. Glycemic Control: well controlled Central Line Necessity Reviewed: not applicable Hernandez: reviewed and still needed at this time Disposition: transfer to floor, tonight vs. tomorrow - will return to neuro stroke service Patient's decisional capacity: has capacity to make decisions Communication with Patient/Family: No meeting held. Goals of Care: improve mental status to baseline Patient was seen and discussed on rounds with MD Jocelyn Howard MD General Surgery PGY1 I saw and evaluated the patient today. I have reviewed the trainee note and agree. 82 year old male with hypotension after angiogram. Injury complex/ medical problems: BPH Seizures Dyslipidemia Malnutrition Hypotension GERD Depression PUD Tobacco abuse COPD Delirium Shock Skin tear LUE Procedures/ operations: Diagnostic cerebral angiogram02/24 Last 24 hours: Stable overnight Neuro:tylenol, baclofen, tegretol, remeron Respiratory:breo ellipta, albuterol CV:plavix, zocor, hold beta litzy Abdomen:pureed diet, pepcid, bowel regimen, NPO after 2400 for carotid stent tomorrow Renal:flomax, d/c IVF and proscar Endo:prednisone, glucose checks ID:no issues Heme:lovenox for DVT ppx MSK: PT/OT Lines:PIV I have personally [id number] of critical care time exclusive of time spent on separatelybillable procedures. Time includes review of laboratory data, radiology results and monitoring for potential decompensation. Interventions were performed as documented above. Upon my evaluation, this patient had a high probability of imminent or life- threatening deterioration due tostroke, which required my direct attention, intervention, and personal management. * Emory Blanco DO - 02/26/2023 5:39 AM EDT PROGRESS NOTE - Neurology [facility] [place]-[address] [address] Name: James Ibarra Location: [facility] A436/[id number] Date: 02/26/2023 Time: 5:39 AM [facility] A436/A SUMMARY: - James Ibarra is a 82 year old patient initially seen by Neurology for concern of seizure activity. Patient first presented to [facility] on 02/20 due to worsening of chronic DJD and muscle spasms.At the time of discharge, patient was noted to have a sudden episode of unresponsiveness associatedwith extremity jerking and confusion following. CTA noted severe (>70%) L ICA stenosis and moderate (>50%) R ICA stenosis. He was transferred here for LTM monitoring. The patient developed RLE weakness on 02/23/2023 leading to NSGY workup that revealed symptomatic LICA stenosis. Hospital day:4 CHANGES SINCE LAST VISIT - No acute changes overnight SUBJECTIVE: - Patient more alert at the bedside this morning. Remains only oriented to self, but follows commands and answers questions appropriately. 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 Drug use: Never OBJECTIVE: Physical Examination Most Recent Vital Signs: BP: 149 mmHg/76 mmHg (02/26/23 0500) Pulse: 66 (02/26/23 0500) Temp: 36.5 C (02/26/23 0400) Resp: 23 (02/26/23 0500) SpO2: 98 % (02/26/23 0500) Weight: 48.6 kg (107 lb 2.3 oz) (02/25/23 0800) Height: 170.2 cm (5' 7") (02/22/23 1330) Body mass index is 16.78 kg/m. Vital Signs Last 24 Hours: Systolic BP: Most Recent Systolic BP Av.9 mmHg Min: 100 mmHg Max: 150 mmHg Temperature: Most Recent Temperature Av.7 C Min: 36.39 C Max: 37.11 C Pulse: Pulse Av.4 Min: 60 Max: 90 Respirations: Resp Av.8 Min: 15 Max: 29 SpO2: SpO2 Av % Min: 92 % Max: 100 % General Examination: Constitutional: Appearance non-obese and no deformities, LTM intact Head/face, ears, nose, throat: normocephalic, atraumatic Cardiovascular: regular rate and regular rhythm Psychiatric: normal judgement and insight, normal mood and normal affect Neurologic Examination: Ophthalmoscopic: deferred due to inadequate dilation Mental Status and Orientation: awake, alert, oriented x 3 Memory: intact to recent and remote recall Attention: normal Knowledge:normal Language: no aphasia Speech: no dysarthria Cranial Nerves: CN 2 - pupils round, equal, reactive to light CN 3, 4, 6 - extra-ocular movements intact and no nystagmus CN 5 - facial sensation intact V1-3 CN 7 - no facial asymmetry CN 8 - intact hearing CN 9, 10 - palate symmetric, uvula midline, no deviation CN 11 - shoulder shrug full strength CN 12 - tongue protrudes midline Sensory: intact to light touch Coordination: intact with finger to nose testing Gait: deferred due to fall risk Muscle Tone: normal Muscle exam: 5/5 BL UE without drift, 1/5 RLE, 3/5 LLE Reflexes: Brachioradialis Biceps Triceps Patellar Achilles Plantars Ginny's Right 2+ 2+ 2+ 2+ 2+ downgoing not present Left 2+ 2+ 2+ 2+ 2+ downgoing not present National [place] of [facility] Stroke Scale: 1A. LOC: 0 1B. Question: 0 1C. Commands: 0 2. Gaze: 0 3. Visual Moss: 0 4. Facial Palsy: 0 5A. Arm Left: 0 5B. Arm Right: 0 6A. Leg Left: 1 6B. Leg Right: 3 7. Ataxia: 0 8. Sensory: 0 9. Aphasia: 0 10. Dysarthria: 0 11. Extinction: 0 Total: 4 LABS Blood Gas: No results in the last 7 days - inpatent use only Chemistry Panel: Lab results within last 7 days (see chart for full results) Units 02/26/23 0448 02/25/23 0724 02/24/23 1203 02/24/23 0635 02/23/23 0727 02/22/23 0632 02/21/23 0631 02/20/23 0818 Sodium mmol/L 138 136 137 139 138 139 141 142 Potassium mmol/L 3.6 4.7 3.9 3.8 3.8 3.9 4.0 4.5 Chloride mmol/L 105 104 102 104 103 105 103 102 CO2 mmol/L 25 20* 24 27 28 26 33* 31 BUN mg/dL 9 10 15 15 15 17 17 24* Creatinine mg/dL 0.6 0.6 0.6 0.6 0.6 0.6 0.6 0.6 Estimated Glomerular Filtration Rate mL/min >90 >90 >90 >90 >90 >90 >90 >90 Glucose mg/dL 79 80 174* 100 86 86 96 104 Calcium mg/dL 8.3* 8.4 8.0* 8.8 8.7 9.1 9.0 9.2 Magnesium mg/dL 2.5 2.4 2.2 -- -- 2.3 2.3 2.3 Phosphorus mg/dL 2.6 2.9 2.6 -- -- 2.5 3.0 -- Anion Gap mmol/L 8 12 11 8 7 8 5* 9 Complete Blood Count: Lab results within last 7 days (see chart for full results) Units 02/26/23 0448 02/25/23 0709 02/24/23 1203 02/24/23 0635 02/23/23 0727 02/21/23 0631 02/20/23 0818 WBC K/uL 6.15 8.09 6.21 7.62 6.80 7.61 10.05 HGB g/dL 9.8* 10.6* 9.6* 10.3* 10.4* 11.0* 12.4* HCT % 30.1* 29.6* 29.3* 30.5* 32.3* 34.3* 36.7* PLT K/uL 332 331 314 334 314 271 255 MCV fL 102.7 100.7 104.3 100.3 103.9 106.2 105.2 Cardiac Studies: Lab results within last 7 days (see chart for full results) Units 02/25/23 0724 02/24/23 2316 02/24/23 1649 02/24/23 1203 02/22/23 0632 02/21/23 1643 Troponin T, High Sensitivity ng/L 57* 53* 46* 52* 52* 69* CK-MB ng/mL -- -- -- 3.7 -- -- Liver Function Panel: Lab results within last 7 days (see chart for full results) Units 02/23/23 0727 02/20/23 0818 Albumin g/dL -- 3.5* Protein g/dL -- 6.5 Bilirubin, Total mg/dL -- 0.2 AST U/L -- 34 ALT U/L -- 29 Alkaline Phosphatase U/L -- 189* Triglycerides mg/dL 97 -- Infectious Studies: Lab results within last 7 days (see chart for full results) Units 02/24/23 1203 Lactate mmol/L 2.2* Cultures: reviewed. Recent Cultures (2 Weeks) No lab values to display. Lipids: Latest Reference Range & Units 02/23/23 07:27 LDL Cholesterol <=129 mg/dL 73 A1C: Lab Results Component Value Date/Time HEMOGLOBIN A1C - [facility] 5.6 02/23/2023 07:27 AM HEMOGLOBIN A1C - [facility] 5.1 05/17/2002 05:05 PM RECENT IMAGE IMPRESSIONS CT HEAD/BRAIN WO CONTRAST Result Date: 02/23/2023 IMPRESSION: No evidence of large, acute territorial infarction or intracranial hemorrhage. Small chronic infarction within the head of the left caudate nucleus/sumner radiata. Chronic microvascular white matter disease and parenchymal volume loss. OTHER STUDIES REVIEWED DSA 02/24/23 Impression: 1. Severe (>95%) left carotid stenosis at the carotid origin 2. Otherwise normal diagnostic cerebral angiogram without evidence of aneurysm, AVM, or dAVF. 3. Normal capillary and venous filling pattern, all major sinuses appear patent. Recommendations: 1. Will discuss timing of intervention if needed. 2. Continue Aspirin and Plavix as before, no change. TTE 02/24/23 LV ejection fraction is 50-54% (normal). The septal motion is abnormal consistent with intrventricular conduction delay. The regional left ventricular wall motion is otherwise normal. There is diffuse right ventricular hypokinesis. The right ventricular systolic function is mildly reduced . The aortic valve is mildly calcified. Image and Doppler assessment of aortic stenosis severity is discordant: Mild to moderate aortic stenosis is suspected. 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 LTM did not detect clinical or electrographic seizure activity this far and all previous routine EEGs have been wnl. Cannot rule out convulsive syncope, vasovagal event, or a consequence of significant atherosclerotic disease affecting perfusion that could have contributed to the events leading to his transfer to [facility]. Found to have new RLE weakness, high suspicion for stroke not yet visible on CTH vs symptomatic L ICA stenosis. MRI Brain could not be done due to pacemaker. Had a DSA by SUDHA 02/24 which revealed >95% LICA stenosis without acute intervention. Subsequentlyhe became hypotensive to the 40s with jaw pain and was transferred to NSICU for observation. Subsequently maintained blood pressure without pressor support. RECOMMENDATIONS/PLAN: RLE weakness likely due to watershed ischemic stroke, atheroembolic etilogy Known BL ICA stenosis s/p DSA - neurosurgery following appreciate recs Plan for Carotid artery stent placement on 02/27 - continue buttermaker ELECTRONIC TRAIN CONTROL TECHNICIAN DAPT (For coronary stents) - Continue Simvastatin 40 mg daily (moderate intensity) - PT/OT History of ?seizure disorder 2/2 cardiac arrest No epileptogenic activities were captured on LTM. 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 and P.T.RLE weakness likely due to ischemic stroke, atheroembolic etilogy Lines/Drains/Airways: LINES ALL Duration Peripheral Line Right;Median 22 Gauge 5 days Peripheral Line Right;Upper Arm 20 Gauge 1 day Rehab Therapy Plans: O.T. and P.T. CODE STATUS: Full Code Discussion of adv directives occurred with - adult: Not Discussed due to patient's condition Prior to Admission medications Medication Sig Last Dose Discont. Baclofen 10 MG Oral Tablet (Lioresal) Take 1 Tablet by mouth 3 times a day as needed for Muscle spasms. Unknown diazePAM 5 MG Oral Tablet (Valium) Take 2 Tablets by mouth every 6 hours as needed for Muscle spasms for up to 15 days. Unknown predniSONE 20 MG Oral Tablet (Deltasone) Take 2 Tablets by mouth daily for 3 days, THEN 1.5 Tabletsdaily for 2 days, THEN 1 Tablet daily for 2 days, THEN 0.5 Tablets daily for 1 day. Do not start before February 22, 2023. Unknown Loratadine 10 MG Oral Capsule Take 1 Capsule by mouth in the morning. Unknown tiZANidine HCl 4 MG Oral Capsule Take 1 Capsule by mouth 3 times a day as needed for Muscle spasms.Unknown Sucralfate 1 GM/10ML Oral Suspension (Carafate) Take 10 mL by mouth in the morning and 10 mL at noon and 10 mL in the evening and 10 mL before bedtime. Unknown oxyCODONE HCl 5 MG Oral Tablet (Oxy IR) Take 1 Tablet by mouth every 4 hours as needed for Pain, Severe. Unknown traMADol HCl 50 MG Oral Tablet (Ultram) Take by mouth 0.5 Tablets every 6 hours as needed for Pain,Severe (pain intensity 7 to 10/10). Unknown Calcium Carbonate-Vitamin D 500-200 MG-UNIT Oral Tablet Take by mouth 1 Tablet at noon AND 1 Tabletin the evening. Do not start before February 26, 2022. Unknown GetGo Rolling Walker To assist with proper walking Unknown Lidocaine 4 % External Patch (Aspercreme) Place topically on the skin 1 Patch in the morning. Do not start before February 26, 2022. Unknown Vitamin D3 25 MCG (1000 UT) Oral Tablet (Vitamin D3) Take by mouth 2 Tablets in the morning. Do notstart before February 26, 2022. Unknown Budesonide-Formoterol Fumarate 160-4.5 MCG/ACT Inhalation Aerosol (Symbicort) Inhale 2 Puffs by mouth in the morning and 2 Puffs before bedtime. Unknown Clopidogrel Bisulfate 75 MG Oral Tablet (pLAVix) Take 1 Tablet by mouth in the morning. Unknown Diclofenac Sodium 1 % External Gel (Voltaren) APPLY 1 G TOPICALLY 3 TIMES A DAY Unknown Famotidine 20 MG Oral Tablet (Pepcid) TAKE 1 TABLET BY MOUTH DAILY BEFORE A MEAL Unknown Fluticasone Propionate 50 MCG/ACT Nasal Suspension (Flonase) SPRAY 2 SPRAYS INTO EACH NOSTRIL EVERYDAY Unknown Folic Acid 1 MG Oral Tablet Take 1 Tablet by mouth in the morning. Unknown Mirtazapine 30 MG Oral Tablet (Remeron) Take 1 Tablet by mouth at bedtime. Unknown Tamsulosin HCl 0.4 MG Oral Capsule (Flomax) Take 2 Capsules by mouth in the morning. Unknown acetaminophen (TYLENOL) 325 MG Tablet Take 2 Tabs by mouth every 6 hours as needed for Pain. Unknown docusate sodium (COLACE) 100 MG Capsule Take 1 Cap by mouth 2 times a day. Unknown polyethylene glycol 3350 (MIRALAX) packet Take 1 Packet by mouth daily. Unknown Albuterol Sulfate (VENTOLIN HFA) 108 (90 Base) MCG/ACT AERS Inhale 2 Puffs by mouth every 4 hours as needed for Shortness of Breath or Wheezing. Unknown Aspirin 81 MG Oral Tablet Delayed Release Take 1 Tablet by mouth in the morning. Unknown pantoprazole (PROTONIX) 40 MG TBEC Take 1 Tablet by mouth in the morning and 1 Tablet before bedtime. Unknown finasteride (PROSCAR) 5 MG Tablet Take 1 Tablet by mouth in the morning. Unknown furosemide (LASIX) 20 MG Tablet Take 1 Tablet by mouth daily as needed (chest pressure / weight gain). Unknown KLOR-CON 10 10 MEQ TBCR Take 1 Tablet by mouth in the morning. Unknown metoprolol succinate XL (TOPROL XL) 25 MG TB24 Take 0.5 Tablets by mouth in the morning. Unknown simvastatin (ZOCOR) 40 MG Tablet Take 1 Tablet by mouth every evening. Unknown TEGRETOL 200 MG PO TABS one pill three times daily Unknown Current Facility-Administered Medications Medication Dose Route Frequency Provider Last Rate Last Admin Acetaminophen (Tylenol) tab 650 mg 650 mg Oral Q6H Ruba Dhillon DO 650 mg at [id number] Albuterol Sulfate (Proventil) (2.5 MG/3ML) 0.083% inhalation solution 2.5 mg 2.5 mg Nebulizer Q4H PRN Ruba Dhillon DO 2.5 mg at 02/25/23 0902 aspirin enteric coated tab 81 mg 81 mg Oral Daily(AM) Ruba Dhillon DO 81 mg at 02/25/23 0840 Baclofen (Lioresal) tab 10 mg 10 mg Oral TID(AM/NOON/HS) Ruba Dhillon DO 10 mg at 02/26/23 0529 carBAMazepine (Tegretol) tab 200 mg 200 mg Oral TID(AM/NOON/HS) Ruba Dhillon DO 200 mg at 02/26/23 0529 chlorHEXIDINE (Periogard) 0.12 % oral rinse 15 mL 15 mL Oral mucosal membrane BID (799,1999) Ruba Dhillon DO 15 mL at 02/25/232009 clopidogrel (pLAVix) tab 75 mg 75 mg Oral Daily(AM) Ruba Dhillon DO 75 mg at 0 Docusate Sodium (Colace) cap 100 mg 100 mg Oral Daily PRN Ruba Dhillon DO Docusate Sodium (Colace) cap 100 mg 100 mg Oral Q12H Ruba Dhillon DO 100 mg at 02/25/232010 Enoxaparin (Lovenox) inj 40 mg 40 mg Subcutaneous Daily 1000 Ruba Dhillon DO 40 mg at02/25/23 0841 Famotidine (Pepcid) tab 20 mg 20 mg Oral Daily(AM) Ruba Dhillon DO 20 mg at 02/25/23 0840 Finasteride (Proscar) tab 5 mg 5 mg Oral Daily(AM) Ruba Dhillon DO 5 mg at 02/25/23 0840 fluticasone (Flonase) nasal inhaler 2 [place] 2 [place] Each Nostril Daily(AM) Ruba Dhillon DO 2 [place] at 02/25/23 0843 fluticasone furoate-vilanterol (BREO ellipta) 200-25 MCG/ACT inhaler 1 Puff 1 Puff Inhalation Daily(AM) Ruba Dhillon DO 1 Puff at 02/25/23 0800 folic acid tab 1 mg 1 mg Oral Daily(AM) Ruba Dhillon DO 1 mg at 02/25/23 0840 isolyte-S pH 7.4 infusion Intravenous Continuous Rachid Camarena, DO 50 mL/hr at 02/25/23 1030 Rate Change at 02/25/23 1030 Lidocaine (Aspercreme) 4 % patch 1 Patch 1 Patch Transdermal Daily(AM) Ruba Dhillon DO 1 Patch at 02/25/23 0841 metoprolol succinate XL (toPROL XL) tab 12.5 mg 12.5 mg Oral Daily(AM) Angus Vicente MD 12.5 mg at 02/25/23 1417 Mirtazapine (Remeron) tab 30 mg 30 mg Oral HS Ruba Dhillon DO 30 mg at 02/25/232009 Oral Hygiene: Mouth Swab with dentifrice Oral Q4H Limited (00;04;12;16) Ruba Dhillon DO Given at 02/26/23 0400 Polyethylene Glycol 3350 (Miralax) oral powder 17 g 1 Packet Oral Daily PRN Ruba Dhillon DO predniSONE (Deltasone) tab 30 mg 30 mg Oral Daily(AM) Ruba Dhillon DO 30 mg at 02/25/23 0840 Followed by [START ON 02/27/2023] predniSONE (Deltasone) tab 20 mg 20 mg Oral Daily(AM) Ruba Dhillon DO Followed by [START ON 03/01/2023] predniSONE (Deltasone) tab 10 mg 10 mg Oral Daily(AM) Ruba Dhillon DO Simvastatin (Zocor) tab 40 mg 40 mg Oral QPM 2000 Ruba Dhillon DO 40 mg at 02/25/232009 sodium chloride 0.9 % flush peripheral nikky 3 mL 3 mL IV Push Q8H Ruba Dhillon DO 3 mLat 02/26/23 0529 sodium chloride 0.9 % flush/inj 3 mL 3 mL IV Push PRN Ruba Dhillon DO tamsulosin (Flomax) cap 0.8 mg 0.8 mg Oral Daily(AM) Ruba Dhillon DO 0.8 mg at 02/25/23 0840 Associated attestation - Daniel Mak MD - 02/26/2023 2:56 PM EDT I saw and evaluated the patient on 02/26/2023. I have reviewed the trainee note and agree. Moving his right leg better today. Plans for left internal carotid artery stenting tomorrow with Dr. Quevedo. * Angus Vicente MD - 02/25/2023 8:14 AM EDT CCM - PROGRESS NOTE [address] [address] Name: James Ibarra Location: [facility] A436/[id number] Date: 02/25/2023 Time: 8:15 AM Date of admission: 02/22/2023 Hospital length of stay: 3 days Subjective PATIENT DESCRIPTION: The patient is a 82 year old male coming to the ICU from the OR after he became hypotensive during his digital subtraction angiography (DSA) for evaluation of bilateral internal carotid artery stenosis. CLINICAL TIMELINE: 02/22 Transferred to [facility] from [facility] after episode of unresponsiveness 02/22 CTA showed bilateral carotid artery stenosis 02/24 DSA with neurosurgery, became hypotensive during procedure 02/24 NSICU for observation and workup 02/24 Multiple episodes of change in mental status 02/25 24-HOUR INTERIM HISTORY: Pt brought to NSICU for observation and workup Had multiple episodes of change in mental status, duration <10 min per episode Objective CONSTITUTIONAL DATA / OBJECTIVE: Vital Signs (Most Recent): Pulse: 75 (02/25/23699) BP: 127/82 (02/25/23699) Resp: 16 (02/25/23699) Temp: 36.7 C (98.1 F) (02/25/23599) SpO2: (Pt. refuses to wear SPO2 monitor) (02/25/23699) Vital Signs (Last 24 Hours): Pulse Av.5 Min: 58 Max: 98 No data recorded Most Recent Systolic BP Av.8 mmHg Min: 85 mmHg Max: 150 mmHg Most Recent Diastolic BP Av.1 mmHg Min: 45 mmHg Max: 106 mmHg Resp Av.1 Min: 14 Max: 32 Most Recent Temperature Av.4 C Min: 36.06 C Max: 36.72 C SpO2 Av % Min: 95 % Max: 100 % Physical Examination: Constitutional: no acute distress, (+) cachectic CV: normal rate Abdomen: normal: soft, bowel sounds normal, no masses, tenderness or organomegaly Musculoskeletal: (+) fat mass loss: Severe Extremities: no clubbing, cyanosis, or edema, otherwise grossly normal, warm, and dry, diffuse bruising and petechiae present Skin: warm, dry, intact: Neuro: alert, conversing normally; oriented to person and time, not oriented to place; normal mental status exam, some difficulty with finger to nose testing on left hand; Glascow Coma Score 15; sensory normal, strength 1/5 on right leg, 3/5 on left leg Intake & Output Summary (Last 24 hours): Intake/Output Summary (Last 24 hours) at 02/25/2023 0815 Last data filed at 02/25/2023 0700 Gross per 24 hour Intake 1792.5 ml Output 1655 ml Net 137.5 ml Laboratory Values: I have personally reviewed the results as of 11:20 AM on 02/25/2023 Chemistry Panel: Lab results within last 7 days (see chart for full results) Units 02/24/23 1203 02/24/23 0635 02/23/23 0727 02/22/23 0632 02/21/23 0631 02/20/23 0818 Sodium mmol/L 137 139 138 139 141 142 Potassium mmol/L 3.9 3.8 3.8 3.9 4.0 4.5 Chloride mmol/L 102 104 103 105 103 102 CO2 mmol/L 24 27 28 26 33* 31 BUN mg/dL 15 15 15 17 17 24* Creatinine mg/dL 0.6 0.6 0.6 0.6 0.6 0.6 Estimated Glomerular Filtration Rate mL/min >90 >90 >90 >90 >90 >90 Glucose mg/dL 174* 100 86 86 96 104 Calcium mg/dL 8.0* 8.8 8.7 9.1 9.0 9.2 Magnesium mg/dL 2.2 -- -- 2.3 2.3 2.3 Phosphorus mg/dL 2.6 -- -- 2.5 3.0 -- Anion Gap mmol/L 11 8 7 8 5* 9 Complete Blood Count: Lab results within last 7 days (see chart for full results) Units 02/25/23 0709 02/24/23 1203 02/24/23 0635 02/23/23 0727 02/21/23 0631 02/20/23 0818 WBC K/uL 8.09 6.21 7.62 6.80 7.61 10.05 HGB g/dL 10.6* 9.6* 10.3* 10.4* 11.0* 12.4* HCT % 29.6* 29.3* 30.5* 32.3* 34.3* 36.7* PLT K/uL 331 314 334 314 271 255 MCV fL 100.7 104.3 100.3 103.9 106.2 105.2 Radiographic Studies: I have personally reviewed the results as of 11:20 AM on 02/25/2023 No imaging results in the last 24 hours Assessment & Plan Principal Problem: Convulsions (HCC) POA: Yes Active Problems: GERD (gastroesophageal reflux disease) POA: Yes Tobacco use disorder POA: Yes Old myocardial infarct POA: Yes Overview: Modified by Acute [place] Protocol #5. Dyslipidemia, goal LDL below 100 POA: Yes Overview: Per Lipid Taxonomy. BPH (benign prostatic hyperplasia) POA: Yes Chronic neck pain POA: Yes Intractable low back pain POA: Yes Ambulatory dysfunction POA: Yes POA = Present On Admission NEUROLOGIC: Analgesia Tylenol 650mg q6 Sedation N/A Delirium Sleep protocol Seizure history (remote) Tegretol ELECTRONIC TRAIN CONTROL TECHNICIAN mirtazapine q1h neuro checks PULMONARY / RESPIRATORY: No active issues IS, pulmonary hygiene CARDIOVASCULAR: Hypovolemic vs. Cardiogenic vs. Septic Shock - likely hypovolemic (improved) Off levo as of 1999 on 02/24 s/p 0.5 + 1 L bolus isolyte Hemodynamically stable Troponin 52, 47 > stop trending ECHO read: The septal motion is abnormal consistent with intrventricular conduction delay. The regional left ventricular wall motion is otherwise normal. There is diffuse right ventricular hypokinesis. The right ventricular systolic function is mildly reduced . The aortic valve is mildly calcified. Image and Doppler assessment of aortic stenosis severity is discordant: Mild to moderate aortic stenosis is suspected. 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, plavix, metoprolol, simvastatin Intra-op hypotension likely due to intravascular volume depletion based on response to fluid bolus, collapsible IVC on POCUS; cardiogenic shock less likely due to normal-appearing heart on ECHO and lack of significant troponin elevation; septic shock unlikely due to continued normal temperatureand WBC count GASTROINTESTINAL / HEPATOBILIARY: No active issues Ok for diet - thin liquids Pepcid for GI ppx Senna + colace RENAL / METABOLIC / FLUIDS: No active issues Fluids @ 50mL/h 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 / MOBILITY / DERMATOLOGIC: Neck pain + muscle spasms - DJD Baclofen, prednisone taper LINES / DRAINS / TUBES: LINES ALL Duration Peripheral Line Right;Median 22 Gauge 4 days Urethral Catheter Regular catheter 3 days Peripheral Line Right;Upper Arm 20 Gauge <1 day GLOBAL ISSUES: Code Status: Full Code Analgesia: well controlled Sedation: not applicable Delirium/Confusion Assessment Method for ICU (CAM-ICU): positive for hypoactive delirium HOB Elevation: greater than 30 degrees Nutrition: PO DVT Prophylaxis: chemoprophylaxis with pneumatic compression devices Stress Ulcer Prophylaxis: Proton Pump Inhibitor. Glycemic Control: well controlled Central Line Necessity Reviewed: not applicable Hernandez: reviewed and still needed at this time Disposition: transfer to floor, tonight vs. tomorrow - will return to neuro stroke service Patient's decisional capacity: has capacity to make decisions Communication with Patient/Family: No meeting held. Goals of Care: improve mental status to baseline Patient was seen and discussed on rounds with MD Jocelyn Howard MD General Surgery PGY1 I saw and evaluated the patient today. I have reviewed the trainee note and agree. 82 year old male with hypotension after angiogram. Injury complex/ medical problems: BPH Seizures Dyslipidemia Malnutrition Hypotension GERD Depression PUD Tobacco abuse COPD Delirium Shock Skin tear LUE Procedures/ operations: Diagnostic cerebral angiogram 02/24 Last 24 hours: Weaned off norepi, on and off agitated yesterday, placed on NPO, TTE reviewed, passed speech Neuro: tylenol, baclofen, tegretol, remeron Respiratory: breo ellipta, albuterol CV: plavix, zocor, hold beta litzy, wean norepi Abdomen: pureed diet, pepcid, bowel regimen Renal: proscar, flomax, IVF at 50 ml/h Endo: prednisone, glucose checks ID: no issues Heme: lovenox for DVT ppx MSK: PT/OT Lines: PIV I have personally provided 30 minutes of critical care time exclusive of time spent on separately billable procedures. Time includes review of laboratory data, radiology results and monitoring for potential decompensation. Interventions were performed as documented above. Upon my evaluation, this patient had a high probability of imminent or life- threatening deterioration due to shock, which required my direct attention, intervention, and personal management. * Emory Blanco DO - 02/25/2023 5:28 AM EDT PROGRESS NOTE - Neurology [facility] [place]-[address] [id number] Name: James Ibarra Location: [facility] [place] A436/A Date: 02/25/2023 Time: 5:28 AM [facility] A436/A SUMMARY: - James Ibarra is a 82 year old patient initially seen by Neurology for concern of seizure activity. Patient first presented to [facility] on 02/20 due to worsening of chronic DJD and muscle spasms.At the time of discharge, patient was noted to have a sudden episode of unresponsiveness associatedwith extremity jerking and confusion following. CTA noted severe (>70%) L ICA stenosis and moderate (>50%) R ICA stenosis. He was transferred here for LTM monitoring. The patient developed RLE weakness on 02/23/2023 leading to NSGY workup that revealed symptomatic LICA stenosis. 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 - MRI could not be done due to PPM SUBJECTIVE: - Patient disoriented at bedside, but alert and following commands. - Patient is not a reliable historian. 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 Drug use: Never OBJECTIVE: Physical Examination Most Recent Vital Signs: BP: 108 mmHg/59 mmHg (02/25/23 0500) Pulse: 60 (02/25/23 0500) Temp: 36.61 C (02/25/23 0400) Resp: 18 (02/25/23 0500) SpO2: 100 % (02/25/23 0500) Weight: 43.5 kg (96 lb) (02/22/23 1330) Height: 170.2 cm (5' 7") (02/22/23 1330) Body mass index is 15.04 kg/m. Vital Signs Last 24 Hours: Systolic BP: Most Recent Systolic BP Av.1 mmHg Min: 85 mmHg Max: 154 mmHg Temperature: Most Recent Temperature Av.4 C Min: 36.06 C Max: 36.72 C Pulse: Pulse Av.6 Min: 58 Max: 98 Respirations: Resp Av.2 Min: 14 Max: 32 SpO2: SpO2 Av.9 % Min: 95 % Max: 100 % General Examination: Constitutional: Appearance non-obese and no deformities, LTM intact Head/face, ears, nose, throat: normocephalic, atraumatic Cardiovascular: regular rate and regular rhythm Psychiatric: normal judgement and insight, normal mood and normal affect Neurologic Examination: Ophthalmoscopic: deferred due to inadequate dilation Mental Status and Orientation: awake, alert, oriented x 3 Memory: intact to recent and remote recall Attention: normal Knowledge:normal Language: no aphasia Speech: no dysarthria Cranial Nerves: CN 2 - pupils round, equal, reactive to light CN 3, 4, 6 - extra-ocular movements intact and no nystagmus CN 5 - facial sensation intact V1-3 CN 7 - no facial asymmetry CN 8 - intact hearing CN 9, 10 - palate symmetric, uvula midline, no deviation CN 11 - shoulder shrug full strength CN 12 - tongue protrudes midline Sensory: intact to light touch Coordination: intact with finger to nose testing Gait: deferred due to fall risk Muscle Tone: normal Muscle exam: 5/5 BL UE without drift, 1/5 RLE, 3/5 LLE Reflexes: Brachioradialis Biceps Triceps Patellar Achilles Plantars Ginny's Right 2+ 2+ 2+ 2+ 2+ downgoing not present Left 2+ 2+ 2+ 2+ 2+ downgoing not present National [place] of Health Stroke Scale: 1A. LOC: 0 1B. Question: 0 1C. Commands: 0 2. Gaze: 0 3. Visual Moss: 0 4. Facial Palsy: 0 5A. Arm Left: 0 5B. Arm Right: 0 6A. Leg Left: 1 6B. Leg Right: 3 7. Ataxia: 0 8. Sensory: 0 9. Aphasia: 0 10. Dysarthria: 0 11. Extinction: 0 Total: 4 LABS Blood Gas: No results in the last 7 days - inpatent use only Chemistry Panel: Lab results within last 7 days (see chart for full results) Units 02/24/23 1203 02/24/23 0635 02/23/23 0727 02/22/23 0632 02/21/23 0631 02/20/23 0818 Sodium mmol/L 137 139 138 139 141 142 Potassium mmol/L 3.9 3.8 3.8 3.9 4.0 4.5 Chloride mmol/L 102 104 103 105 103 102 CO2 mmol/L 24 27 28 26 33* 31 BUN mg/dL 15 15 15 17 17 24* Creatinine mg/dL 0.6 0.6 0.6 0.6 0.6 0.6 Estimated Glomerular Filtration Rate mL/min >90 >90 >90 >90 >90 >90 Glucose mg/dL 174* 100 86 86 96 104 Calcium mg/dL 8.0* 8.8 8.7 9.1 9.0 9.2 Magnesium mg/dL 2.2 -- -- 2.3 2.3 2.3 Phosphorus mg/dL 2.6 -- -- 2.5 3.0 -- Anion Gap mmol/L 11 8 7 8 5* 9 Complete Blood Count: Lab results within last 7 days (see chart for full results) Units 02/24/23 1203 02/24/23 0635 02/23/23 0727 02/21/23 0631 02/20/23 0818 WBC K/uL 6.21 7.62 6.80 7.61 10.05 HGB g/dL 9.6* 10.3* 10.4* 11.0* 12.4* HCT % 29.3* 30.5* 32.3* 34.3* 36.7* PLT K/uL 314 334 314 271 255 MCV fL 104.3 100.3 103.9 106.2 105.2 Cardiac Studies: Lab results within last 7 days (see chart for full results) Units 02/24/23 2316 02/24/23 1649 02/24/23 1203 02/22/23 0632 02/21/23 1643 Troponin T, High Sensitivity ng/L 53* 46* 52* 52* 69* CK-MB ng/mL -- -- 3.7 -- -- Liver Function Panel: Lab results within last 7 days (see chart for full results) Units 02/23/23 0727 02/20/23 0818 Albumin g/dL -- 3.5* Protein g/dL -- 6.5 Bilirubin, Total mg/dL -- 0.2 AST U/L -- 34 ALT U/L -- 29 Alkaline Phosphatase U/L -- 189* Triglycerides mg/dL 97 -- Infectious Studies: Lab results within last 7 days (see chart for full results) Units 02/24/23 1203 Lactate mmol/L 2.2* Cultures: reviewed. Recent Cultures (2 Weeks) No lab values to display. Lipids: No results found for: LDL-CHOLESTEROL A1C: Lab Results Component Value Date/Time HEMOGLOBIN A1C - [facility] 5.6 02/23/2023 07:27 AM HEMOGLOBIN A1C - [facility] 5.1 05/17/2002 05:05 PM TSH: No results found for: TSH - [facility] RECENT IMAGE IMPRESSIONS CT HEAD/BRAIN WO CONTRAST Result Date: 02/23/2023 IMPRESSION: No evidence of large, acute territorial infarction or intracranial hemorrhage. Small chronic infarction within the head of the left caudate nucleus/sumner radiata. Chronic microvascular white matter disease and parenchymal volume loss. OTHER STUDIES REVIEWED DSA 02/24/23 Impression: 1. Severe (>95%) left carotid stenosis at the carotid origin 2. Otherwise normal diagnostic cerebral angiogram without evidence of aneurysm, AVM, or dAVF. 3. Normal capillary and venous filling pattern, all major sinuses appear patent. Recommendations: 1. Will discuss timing of intervention if needed. 2. Continue Aspirin and Plavix as before, no change. 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 LTM has not detected clin ical or electrographic seizure activity this far and all previous routine EEGs have been wnl. Cannot rule out convulsive syncope, vasovagal event, or a consequence of significant atherosclerotic disease affecting perfusion that could have contributed to the events leading to his transfer to [facility]. Found to have new RLE weakness, high suspicion for stroke not yet visible on CTH vs symptomatic L ICA stenosis. Had a DSA by NSGY 02/24 which revealed >95% LICA stenosis without acute intervention. Subsequently he became hypotensive and was transferred to NSICU for observation. RECOMMENDATIONS/PLAN: RLE weakness likely due to watershed ischemic stroke, atheroembolic etilogy Known BL ICA stenosis s/p DSA - neurosurgery is following. Would consider intervention in future outpatient. Appreciate recs - q1h Neurochecks - MRI could not be done due to his pacemaker. - continue DAPT - Continue Zocor 40 mg daily - PT/OT History of ?seizure disorder 2/2 cardiac arrest No epileptogenic activities were captured on LTM. 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 and P.T.RLE weakness likely due to ischemic stroke, atheroembolic etilogy Lines/Drains/Airways: LINES ALL Duration Peripheral Line Right;Median 22 Gauge 4 days Urethral Catheter Regular catheter 3 days Peripheral Line Right;Upper Arm 20 Gauge <1 day Rehab Therapy Plans: O.T. and P.T. CODE STATUS: Full Code Discussion of adv directives occurred with - adult: Not Discussed due to patient's condition Prior to Admission medications Medication Sig Last Dose Discont. Baclofen 10 MG Oral Tablet (Lioresal) Take 1 Tablet by mouth 3 times a day as needed for Muscle spasms. Unknown diazePAM 5 MG Oral Tablet (Valium) Take 2 Tablets by mouth every 6 hours as needed for Muscle spasms for up to 15 days. Unknown predniSONE 20 MG Oral Tablet (Deltasone) Take 2 Tablets by mouth daily for 3 days, THEN 1.5 Tabletsdaily for 2 days, THEN 1 Tablet daily for 2 days, THEN 0.5 Tablets daily for 1 day. Do not start before February 22, 2023. Unknown Loratadine 10 MG Oral Capsule Take 1 Capsule by mouth in the morning. Unknown tiZANidine HCl 4 MG Oral Capsule Take 1 Capsule by mouth 3 times a day as needed for Muscle spasms.Unknown Sucralfate 1 GM/10ML Oral Suspension (Carafate) Take 10 mL by mouth in the morning and 10 mL at noon and 10 mL in the evening and 10 mL before bedtime. Unknown oxyCODONE HCl 5 MG Oral Tablet (Oxy IR) Take 1 Tablet by mouth every 4 hours as needed for Pain, Severe. Unknown traMADol HCl 50 MG Oral Tablet (Ultram) Take by mouth 0.5 Tablets every 6 hours as needed for Pain,Severe (pain intensity 7 to 10/10). Unknown Calcium Carbonate-Vitamin D 500-200 MG-UNIT Oral Tablet Take by mouth 1 Tablet at noon AND 1 Tabletin the evening. Do not start before February 26, 2022. Unknown GetGo Rolling Walker To assist with proper walking Unknown Lidocaine 4 % External Patch (Aspercreme) Place topically on the skin 1 Patch in the morning. Do not start before February 26, 2022. Unknown Vitamin D3 25 MCG (1000 UT) Oral Tablet (Vitamin D3) Take by mouth 2 Tablets in the morning. Do notstart before February 26, 2022. Unknown Budesonide-Formoterol Fumarate 160-4.5 MCG/ACT Inhalation Aerosol (Symbicort) Inhale 2 Puffs by mouth in the morning and 2 Puffs before bedtime. Unknown Clopidogrel Bisulfate 75 MG Oral Tablet (pLAVix) Take 1 Tablet by mouth in the morning. Unknown Diclofenac Sodium 1 % External Gel (Voltaren) APPLY 1 G TOPICALLY 3 TIMES A DAY Unknown Famotidine 20 MG Oral Tablet (Pepcid) TAKE 1 TABLET BY MOUTH DAILY BEFORE A MEAL Unknown Fluticasone Propionate 50 MCG/ACT Nasal Suspension (Flonase) SPRAY 2 SPRAYS INTO EACH NOSTRIL EVERYDAY Unknown Folic Acid 1 MG Oral Tablet Take 1 Tablet by mouth in the morning. Unknown Mirtazapine 30 MG Oral Tablet (Remeron) Take 1 Tablet by mouth at bedtime. Unknown Tamsulosin HCl 0.4 MG Oral Capsule (Flomax) Take 2 Capsules by mouth in the morning. Unknown acetaminophen (TYLENOL) 325 MG Tablet Take 2 Tabs by mouth every 6 hours as needed for Pain. Unknown docusate sodium (COLACE) 100 MG Capsule Take 1 Cap by mouth 2 times a day. Unknown polyethylene glycol 3350 (MIRALAX) packet Take 1 Packet by mouth daily. Unknown Albuterol Sulfate (VENTOLIN HFA) 108 (90 Base) MCG/ACT AERS Inhale 2 Puffs by mouth every 4 hours as needed for Shortness of Breath or Wheezing. Unknown Aspirin 81 MG Oral Tablet Delayed Release Take 1 Tablet by mouth in the morning. Unknown pantoprazole (PROTONIX) 40 MG TBEC Take 1 Tablet by mouth in the morning and 1 Tablet before bedtime. Unknown finasteride (PROSCAR) 5 MG Tablet Take 1 Tablet by mouth in the morning. Unknown furosemide (LASIX) 20 MG Tablet Take 1 Tablet by mouth daily as needed (chest pressure / weight gain). Unknown KLOR-CON 10 10 MEQ TBCR Take 1 Tablet by mouth in the morning. Unknown metoprolol succinate XL (TOPROL XL) 25 MG TB24 Take 0.5 Tablets by mouth in the morning. Unknown simvastatin (ZOCOR) 40 MG Tablet Take 1 Tablet by mouth every evening. Unknown TEGRETOL 200 MG PO TABS one pill three times daily Unknown Current Facility-Administered Medications Medication Dose Route Frequency Provider Last Rate Last Admin Acetaminophen (Tylenol) tab 650 mg 650 mg Oral Q6H Ruba Dhillon DO 650 mg at Albuterol Sulfate (Proventil) (2.5 MG/3ML) 0.083% inhalation solution 2.5 mg 2.5 mg Nebulizer Q4H PRN Ruba Dhillon DO 2.5 mg at 02/24/23 0908 aspirin enteric coated tab 81 mg 81 mg Oral Daily(AM) Ruba Dhillon DO 81 mg at 02/24/23 0823 Baclofen (Lioresal) tab 10 mg 10 mg Oral TID(AM/NOON/HS) Ruba Dhillon DO 10 mg at 02/25/23 0501 carBAMazepine (Tegretol) tab 200 mg 200 mg Oral TID(AM/NOON/HS) Ruba Dhillon DO 200 mg at 02/24/23 211 chlorHEXIDINE (Periogard) 0.12 % oral rinse 15 mL 15 mL Oral mucosal membrane BID (799,1999) Ruba Dhillon DO 15 mL at 02/24/23 211 clopidogrel (pLAVix) tab 75 mg 75 mg Oral Daily(AM) Ruba Dhillon DO 75 mg at Docusate Sodium (Colace) cap 100 mg 100 mg Oral Daily PRN Ruba Dhillon DO Docusate Sodium (Colace) cap 100 mg 100 mg Oral Q12H Ruba Dhillon DO 100 mg at 02/24/232110 Enoxaparin (Lovenox) inj 40 mg 40 mg Subcutaneous Daily 1000 Ruba Dhillon DO 40 mg at02/23/23 0836 Famotidine (Pepcid) tab 20 mg 20 mg Oral Daily(AM) Ruba Dhillon DO 20 mg at 02/24/23 0821 Finasteride (Proscar) tab 5 mg 5 mg Oral Daily(AM) Ruba Dhillon DO 5 mg at 02/24/23 0821 fluticasone (Flonase) nasal inhaler 2 [place] 2 [place] Each Nostril Daily(AM) Ruba Dhillon DO 2 [place] at 02/24/23 0826 fluticasone furoate-vilanterol (BREO ellipta) 200-25 MCG/ACT inhaler 1 Puff 1 Puff Inhalation Daily(AM) Ruba Dhillon DO 1 Puff at 02/24/23 0825 folic acid tab 1 mg 1 mg Oral Daily(AM) Ruba Dhillon DO 1 mg at 02/24/23 0821 isolyte-S pH 7.4 infusion Intravenous Continuous Ruba Dhillon DO 75 mL/hr at 520 New Bag at 02/25/23 0520 Lidocaine (Aspercreme) 4 % patch 1 Patch 1 Patch Transdermal Daily(AM) Ruba Dhillon DO 1 Patch at 02/24/23 1202 Mirtazapine (Remeron) tab 30 mg 30 mg Oral HS Ruba Dhillon DO 30 mg at 02/24/23 2109 Oral Hygiene: Mouth Swab with dentifrice Oral Q4H Limited (00;04;12;16) Ruba Dhillon DO Given at 02/25/23 0400 Polyethylene Glycol 3350 (Miralax) oral powder 17 g 1 Packet Oral Daily PRN Ruba Dhillon DO predniSONE (Deltasone) tab 30 mg 30 mg Oral Daily(AM) Ruba Dhillon DO Followed by [START ON 02/27/2023] predniSONE (Deltasone) tab 20 mg 20 mg Oral Daily(AM) Ruba Dhillon DO Followed by [START ON 03/01/2023] predniSONE (Deltasone) tab 10 mg 10 mg Oral Daily(AM) Ruba Dhillon DO Simvastatin (Zocor) tab 40 mg 40 mg Oral QPM 2000 Ruba Dhillon DO 40 mg at 02/24/23 210 sodium chloride 0.9 % flush peripheral nikky 3 mL 3 mL IV Push Q8H Ruba Dhillon DO 3 mLat 02/25/23 0600 sodium chloride 0.9 % flush/inj 3 mL 3 mL IV Push PRN Ruba Dhillon DO tamsulosin (Flomax) cap 0.8 mg 0.8 mg Oral Daily(AM) Ruba Dhillon DO 0.8 mg at 02/24/23 0821 Associated attestation - Daniel Mak MD - 02/25/2023 5:23 PM EDT I saw and evaluated the patient on 02/25/2023. I have reviewed the trainee note and agree. Left carotid stenting tomorrow or versus outpatient pending family decision. Continue ASA/Plavix. Off pressors and stable. TTE report noted. * Jhon Oswald MD - 02/24/2023 3:42 PM EDT PROGRESS NOTE - Neurology [facility] [place]-[address] [address] Name: James Ibarra Location: [facility] A436/A Date: 02/24/2023 Time: 3:42 PM SUBJECTIVE: James Ibarra is a 82 year old patient initially seen by Neurology for concern of seizure activity. Patient first presented to [facility] on 02/20 due to worsening of chronic DJD and muscle spasms. At the time of discharge, patient was noted to have a sudden episode of unresponsiveness a ssociated with extremity jerking and confusion following. CTA noted severe (>70%) L ICA stenosisand moderate (>50%) R ICA stenosis. He was transferred here for LTM monitoring. The patient developed RLE weakness on 02/23/2023 on which NSGY was consulted for symptomatic LICA stenosis. Changes since last visit: Patient was seen and examined at bedside today. Was alert and oriented to self only in the morning but did not have any complaints. Continued to have the RLE weakness. Went for DSA in the morning at which he developed a hypotensive episode and there was a concern for ST elevation. 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 The patient was given vasopressors and was transferred to NSICU for observation. During the DSA, LICA had > 95% and AARON had 50% stenosis. No stent was placed. Patient was seen at NSICU after the procedure. Was alert and oriented x3. Following commands and isasking for his significant other. 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 Drug use: Never OBJECTIVE: Physical Examination Most Recent Vital Signs: BP: 117 mmHg/54 mmHg (02/24/23 1400) Pulse: 68 (02/24/23 1400) Temp: 36.39 C (02/24/23 1400) Resp: 20 (02/24/23 1400) SpO2: 98 % (02/24/23 1400) Weight: 43.5 kg (96 lb) (02/22/23 1330) Height: 170.2 cm (5' 7") (02/22/231329) Body mass index is 15.04 kg/m. Vital Signs Last 24 Hours: Systolic BP: Most Recent Systolic BP Av.9 mmHg Min: 85 mmHg Max: 154 mmHg Temperature: Most Recent Temperature Av.3 C Min: 36.06 C Max: 36.78 C Pulse: Pulse Av.7 Min: 67 Max: 98 Respirations: Resp Av.9 Min: 20 Max: 30 SpO2: SpO2 Av.9 % Min: 95 % Max: 100 % Patient State: patient resting comfortably in bed, awake and alert General Examination: Constitutional: Appearance non-obese and no deformities, LTM intact Head/face, ears, nose, throat: normocephalic, atraumatic Cardiovascular: regular rate and regular rhythm Psychiatric: normal judgement and insight, normal mood and normal affect Neurologic Examination: Ophthalmoscopic: deferred due to inadequate dilation Mental Status and Orientation: awake, alert, oriented x 3 Memory: intact to recent and remote recall Attention: normal Knowledge:normal Language: no aphasia Speech: no dysarthria Cranial Nerves: CN 2 - pupils round, equal, reactive to light CN 3, 4, 6 - extra-ocular movements intact and no nystagmus CN 5 - facial sensation intact V1-3 CN 7 - no facial asymmetry CN 8 - intact hearing CN 9, 10 - palate symmetric, uvula midline, no deviation CN 11 - shoulder shrug full strength CN 12 - tongue protrudes midline Sensory: intact to light touch Coordination: intact with finger to nose testing Gait: deferred due to fall risk Muscle Tone: normal Muscle exam: 12/27 BL UE without drift, 08/29 RLE, 3 LLE Reflexes: Brachioradialis Biceps Triceps Patellar Achilles Plantars Ginny's Right 2+ 2+ 2+ 2+ 2+ downgoing not present Left 2+ 2+ 2+ 2+ 2+ downgoing not present [facility] [place] [facility] Stroke Scale: 1A. LOC: 0 1B. Question: 0 1C. Commands: 0 2. Gaze: 0 3. Visual Moss: 0 4. Facial Palsy: 0 5A. Arm Left: 0 5B. Arm Right: 0 6A. Leg Left: 1 6B. Leg Right: 3 7. Ataxia: 0 8. Sensory: 0 9. Aphasia: 0 10. Dysarthria: 0 11. Extinction: 0 Total: 4 LABS: Labs reviewed as indicated below: Tegretol level 4.1, lower limit of normal, trough level (collected 2min before dose on 02/22/23) BMP within normal limits Lab results within last 7 days (see chart for full results) Units 02/24/23 1203 02/24/23 0635 02/23/23 0727 Sodium mmol/L 137 139 138 Potassium mmol/L 3.9 3.8 3.8 Chloride mmol/L 102 104 103 CO2 mmol/L 24 27 28 BUN mg/dL 15 15 15 Creatinine mg/dL 0.6 0.6 0.6 Hgb 10.4, anemic Lab results within last 7 days (see chart for full results) Units 02/24/23 1203 02/24/23 0635 02/23/23 0727 HGB g/dL 9.6* 10.3* 10.4* HCT % 29.3* 30.5* 32.3* WBC K/uL 6.21 7.62 6.80 PLT K/uL 314 334 314 Latest Reference Range & Units Most Recent Hemoglobin A1C 4.0 - 5.6 % 5.6 02/23/23 07:27 Lipid Panel Results: Results for orders placed or performed during the hospital encounter of 09/19/02 LIPID PANEL Result Value Ref Range HOURS FASTING NOT PROVIDED hours Triglycerides 111 60 - 290 mg/dL Cholesterol 167 160 - 200 mg/dL HDL Cholesterol 46 40 - 59 mg/dL Cholesterol-HDL Ratio 3.6 LDL Cholesterol 99 0 - 130 mg/dL Results for orders placed or performed during the hospital encounter of 02/22/23 LIPID PANEL WITH DIRECT LDL IF TG IS HIGH Result Value Ref Range Triglycerides 97 <=174 mg/dL Cholesterol 157 <200 mg/dL HDL Cholesterol 65 >39 mg/dL Non-HDL Cholesterol 92 <=159 mg/dL LDL Cholesterol 73 <=129 mg/dL Review of prior Diagnostic Tests, Imaging, and Labs: CTA H/N 02/20 IMPRESSION: 1. Greater than 70% stenosis of the left carotid bifurcation with diffuse attenuation of the distal internal carotid artery, with likely moderate to severe stenoses along the intracranial segments. 2. 50-69% stenosis of the right carotid bifurcation. 3. Prominent debris within the visualized trachea. 4. Diffuse bronchial wall thickening may represent bronchitis or asthma. 5. Thickening in the proximal esophagus may represent esophagitis I personally reviewed the following new images. 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 LTM has not detected clin ical or electrographic seizure activity this far and all previous routine EEGs have been wnl. Cannot rule out convulsive syncope, vasovagal event, or a consequence of significant atherosclerotic disease affecting perfusion that could have contributed to the events leading to his transfer to [facility]. With new RLE weakness, high suspicion for stroke not yet visible on CTH vs symptomatic L ICA stenosis.Had a DSA by NSGY today which revealed >95% LICA stenosis (was not stented given the patient's hypotensive episode). Was transferred to NSICU for observation. RECOMMENDATIONS/PLAN: RLE weakness likely due to ischemic stroke, atheroembolic etilogy Known BL ICA stenosis s/p DSA - neurosurgery is following. Would consider intervention in future. Appreciate recs - q1h Neurochecks - MRI could not be done due to his pacemaker. - continue DAPT - Continue Zocor 40 mg daily - PT/OT History of ?seizure disorder 2/2 cardiac arrest No epileptogenic activities were captured on LTM. - DC LTM (done in the morning today before DSA) - Continue ELECTRONIC TRAIN CONTROL TECHNICIAN tegretol 200 TID Rest per ICU team Rehab Therapy Plans: O.T. and P.T. CODE STATUS: Full Code Discussion of adv directives occurred with - adult: Not Discussed due to patient's condition Patient discussed with Dr. Mak Associated attestation - Daniel Mak MD - 02/24/2023 4:08 PM EDT I saw and evaluated the patient today. I have reviewed the trainee note and agree. On exam: Mental status is clear. Good strength in bilateral upper extremities. 2+ to 3- out of 5 strength in right lower extremity. 3+ patellar reflex on the right side comparing to 1+ on the left side. At least 4/5 muscle strength in the left lower extremity. Clinically, the patient has right lower extremity weakness appeared to be related to left [place] watershed stroke caused by severe symptomatic left internal carotid artery origin stenosis. Neurosurgery on board with possible plans for revascularization pending cardiac workup given concerns about cardiac event during diagnostic angiogram. Continue ICU monitoring. Continue dual antiplatelets. * Angus Vicente MD - 02/24/2023 11:55 AM EDT TRANSFER RECEIVING NOTE - GEORGINA MANUEL [address] [id number] Name: James Ibarra Current Location: [facility] A4/A HANDOFF COMMUNICATION: Sending patient service: Neurology Accepting service: GEORGINA Manuel Sending attending aware of patient and transfer: yes Receiving attending aware of patient and transfer: yes Name of receiving attending provider: Dr. Vicente Patient care is being assumed by receiving service: 11:57 AM in current location Reason for transfer: Hypotensive in OR, concern for acute cardiac event PATIENT DESCRIPTION: Patient is a 82 year old male coming to the ICU from the OR after he became hypotensive during his digital subtraction angiography (DSA) today for evaluation of bilateral internal carotid artery stenosis. 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 90% RCA, 90% LCx, both PTCA/Stent by [facility] Generalized osteoarthritis GERD (gastroesophageal reflux disease) Major depression, single episode Prostatitis, acute 2011 PUD (peptic ulcer disease) 2018 ruptured ulcer - needed clipped Tobacco use disorder HPI/EVENTS OF NOTE: Was transferred to [facility] from [facility] after he had an episode of unresponsiveness during his admission for worsening of his chronic DJD neck pain and muscle spasms. Workup revealed bilateral internal carotid artery stenosis (LICA >70%, AARON 50-69%). Underwent digital subtraction angiography with neurosurgery today (02/24) to further evaluate carotid arteries. He became hypotensivein the OR after administration of the vasodilators to facilitate radial artery access, which improved with phenylephrine and fluids during the procedure. He will remain the in ICU for workup and monitoring. TRANSFER MEDICATION RECONCILIATION COMPLETED? yes REVIEW OF SYSTEMS: Constitutional: (-) fever chills sweats or weight loss, (+) weakness and (-) otherwise negative Eyes: (-) negative, no amaurosis fugax, pain, blurred vision, or redness and (-) otherwise negative ENT: (-) negative: no headaches, vertigo, hearing loss, sinus, ear, or throat problems and (-) otherwise negative Cardiovascular: (-) negative: no chest pain, dyspnea, syncope, or palpitations and (-) otherwise negative Pulmonary: (+) dyspnea and (-) otherwise negative Abdominal/GI: (-) negative: no pain, heartburn, dysphagia, bleeding, change in bowel habits, nauseaor vomiting and (-) otherwise negative Male : no hematuria and + hernandez Musculoskeletal: (+) neck pain improved; RLE weakness started this am and (-) otherwise negative Endocrine: (-) negative: no weight change, heat or cold intolerance, polyuria Hematology/oncology: (-) negative: no fever, night sweats, masses, or swollen nodes and (-) otherwise negative Skin: (-) negative: no rash or new or changing moles and (-) otherwise negative Neurology: (-) negative: no focal neurologic defect and (+) focal weakness RLE CONSTITUTIONAL DATA: BP: 103 mmHg/60 mmHg (02/24/23 1130) Pulse: 98 (02/24/23 0854) Temp: 36.06 C (02/24/23 113) Resp: 20 (02/24/23 1130) SpO2: 100 % (02/24/23 113) PHYSICAL EXAM: BP 116/58 | Pulse 73 | Temp 36.5 C (97.7 F) (Tympanic) | Resp 19 | Ht 1.702 m (5' 7") | Wt 43.5kg (96 lb) | SpO2 96% | BMI 15.04 kg/m | BSA 1.43 m Constitutional: no acute distress, (+) cachectic CV: normal rate Abdomen: normal: soft, bowel sounds normal, no masses, tenderness or organomegaly Musculoskeletal: (+) fat mass loss: Severe Extremities: no clubbing, cyanosis, or edema, otherwise grossly normal, warm, and dry, diffuse bruising and petechiae present Skin: warm, dry, intact: Neuro: alert, oriented to person, place, and time, normal mental status exam, Glascow Coma Score 15, sensory normal, left leg weaker than right LABORATORY VALUES: reviewed RADIOGRAPHIC STUDIES: reviewed Principal Problem: Convulsions (HCC) POA: Yes Active Problems: GERD (gastroesophageal reflux disease) POA: Yes Tobacco use disorder POA: Yes Old myocardial infarct POA: Yes Dyslipidemia, goal LDL below 100 POA: Yes BPH (benign prostatic hyperplasia) POA: Yes Chronic neck pain POA: Yes Intractable low back pain POA: Yes Ambulatory dysfunction POA: Yes POA = Present On Admission SYSTEM BASED PLAN: NEURO Analgesia Tylenol 650mg q6 Sedation N/A Delirium Sleep protocol Seizure history (remote) Tegretol ELECTRONIC TRAIN CONTROL TECHNICIAN mirtazapine q1h neuro checks RESP/PULM No active issues IS, pulmonary hygiene CARDIO Hypovolemic vs. Cardiogenic vs. Septic Shock On levo Now s/p 0.5 + 1 L bolus isolyte - BP has normalized Troponin 52, CK-MB + CK normal > repeat troponin ECHO pending, but no wall motion abnormalities on POCUS ELECTRONIC TRAIN CONTROL TECHNICIAN aspirin, plavix, metoprolol, simvastatin Intra-op hypotension likely due to intravascular volume depletion based on response to fluid bolus, collapsible IVC on POCUS; cardiogenic shock less likely due to normal-appearing heart on ECHO and lack of significant troponin elevation but will await ECHO read and repeat troponin to rule out; septic shock unlikely due to normal temperature and WBC count GI No active issues Pepcid for GI ppx Senna + colace /RENAL/METABOLIC No active issues Fluids @ 75mL/h ELECTRONIC TRAIN CONTROL TECHNICIAN finasteride, tamsulosin ENDO No active issues HEME DVT ppx: lovenox 40mg MSK Neck pain + muscle spasms - DJD Baclofen, prednisone taper L/T/D Peripheral IV x2 Hernandez GLOBAL ISSUES: Analgesia: protocol with control Sedation: N/A Delirium/Confusion Assessment Method for ICU (CAM-ICU): CAM-ICU positive hypoactive delirium prescribing sleep therapy HOB Elevation: greater than 30 degress Nutrition: PO DVT Prophylaxis: chemoprophylaxis with pneumatic compression devices Stress Ulcer Prophylaxis: PPI therapy for other indication Glycemic Control: controlled - not in protocol Central Line Necessity Reviewed: N/A Hernandez: reviewed and needed Disposition: keep in ICU Patient's decisional capacity: has capacity to make decisions Communication with Patient/Family: No meeting held. Goals of Care: stabilize hemodynamic status Jocelyn Sanderson General Surgery PGY1 I saw and evaluated the patient today. I have reviewed the trainee note and agree. 82 year old male with hypotension after angiogram. Injury complex/ medical problems: BPH Seizures Dyslipidemia Malnutrition Hypotension GERD Depression PUD Tobacco abuse COPD Procedures/ operations: Diagnostic cerebral angiogram 02/24 Last 24 hours: Bedside echo with collapsible IVC, normal ventricular function Neuro: tylenol, baclofen, tegretol, remeron Respiratory: breo ellipta, albuterol CV: plavix, zocor, hold beta litzy, wean norepi Abdomen: regular diet, pepcid, bowel regimen Renal: proscar, flomax, IVF at 75 ml/h + bolus Endo: prednisone, glucose checks ID: no issues Heme: lovenox for DVT ppx Lines: PIV Family updated I have personally provided 30 minutes of critical care time exclusive of time spent on separately billable procedures. Time includes review of laboratory data, radiology results and monitoring for potential decompensation. Interventions were performed as documented above. Upon my evaluation, this patient had a high probability of imminent or life- threatening deterioration due to shock, which required my direct attention, intervention, and personal management. * Papo Au RN - 02/24/2023 11:32 AM EDT Dual Licensed Skin Assessment completed by amy and papo Lorenzo. The patient is/has a N/A Skin Breakdown (includes non blanchable erythema): Yes. Wound Type: Suspected pressure injury at bony prominence, location coccyx Skin tear, location left lateral wrist. Wound Ostomy Nurse Notified: Yes - notified via wound care protocol Nursing interventions: per orders. Mepilex foam, Wound consult. Cleansed PRN * Hitesh García MD - 02/24/2023 11:13 AM EDT Verapamil and nitroglycerin were given by endovascular neurosurgical team per protocol. Phenylephrine boluses were given. Phenylephrine infusion was started in addition to additional phenylephrine boluses. Norepinephrine infusion was started. ST segment changes noted with jaw pain, associated with hypotension after intracranial intravascular vasodilation therapy. Norepinephrine infusion was increased. Morphine IV was given. Jaw pain improved. EKG was ordered. Cardiology in patient consults was ordered stat. VS remained stable. Will follow up. Patient to go to ICU. Cardiac fellow Delmar Flores paged (02/24/2023 11:21 AM): "Please evaluate James Ibarra ( ) with ST segment changes after vasodilation therapyduring intracranial angiography. Thank you, Hitesh García" Cardiac fellow Delmar Flores paged using [employer] (02/24/2023 11:24 AM): "Please evaluate James Ibarra ( ) with ST segment changes after vasodilation therapyduring intracranial angiography. Thank you" * Get Hollis MD - 02/24/2023 8:33 AM EDT NEUROLOGICAL SURGERY PROGRESS NOTE [address] [address] Name: James Ibarra Location: [facility] [id number] Date: 02/24/2023 Time: 8:33 AM SUBJECTIVE: MRI pending pacemaker clearance OBJECTIVE: Most recent vital signs: BP: 154 mmHg/75 mmHg (02/24/23599) Pulse: 67 (02/24/23599) Temp: 36.22 C (02/24/23599) Resp: 20 (02/24/23599) SpO2: 96 % (02/24/23599) Vital signs over last 24 hours: Systolic BP: Most Recent Systolic BP Av.3 mmHg Min: 111 mmHg Max: 156 mmHg Temperature: Most Recent Temperature Av.3 C Min: 36.11 C Max: 36.78 C Pulse: Pulse Avg: Pulse Av.7 Min: 67 Max: 80 Respirations: Resp Av.7 Min: 20 Max: 26 SpO2: SpO2 Av.8 % Min: 95 % Max: 99 % SpO2: SpO2 Av.8 % Min: 95 % Max: 99 % FiO2%: No data recorded ICP: No data found.CPP (adult): No data found.Intake Input/Output: (last 24 hours) Intake/Output Summary (Last 24 hours) at 02/24/2023 0833 Last data filed at 02/24/2023 0556 Gross per 24 hour Intake 590 ml Output 900 ml Net -310 ml Neurologic Examination Shahida Coma Scale (GCS): Eyes Open: 4 = spontaneous Best Verbal Response: 4 = disoriented, inappropriate, cries Best Motor Response: 6 = obeys commands appropriate for age Coma Score: 14 Awake, alert, oriented to person, place, not time PERRL EOMI No facial droop No pronator drift DEGROOT to command RUE 2/5 LUE 5/5 RLE 5/5 LLE 5/5 Sensation grossly intact LABS: Blood count: Lab Results Component Value Date/Time WBC 7.62 02/24/2023 06:35 AM WBC 8.0 10/02/2022 09:42 AM WBC 7.43 11/05/2019 05:48 AM WBC 7.6 08/06/1996 08:00 AM HGB 10.3 (L) 02/24/2023 06:35 AM HGB 11.7 (L) 10/02/2022 09:42 AM HGB 11.6 (L) 11/05/2019 05:48 AM HGB 15.3 08/06/1996 08:00 AM HCT 30.5 (L) 02/24/2023 06:35 AM HCT 35.1 (L) 11/05/2019 05:48 AM HCT 44.7 08/06/1996 08:00 AM PLT 334 02/24/2023 06:35 AM PLT 257 10/02/2022 09:42 AM PLT 246 11/05/2019 05:48 AM PLT 245 08/06/1996 08:00 AM Coagulation studies: Lab Results Component Value Date/Time INR 0.9 10/25/2020 08:37 AM INR 1.05 09/20/2002 05:08 AM Chemistry: Lab Results Component Value Date/Time BUN 15 02/24/2023 06:35 AM BUN 21 (H) 11/05/2019 05:48 AM BUN 15 08/06/1996 08:00 AM CREAT 0.6 02/24/2023 06:35 AM CREAT 1.0 11/05/2019 05:48 AM CREAT 1.1 08/06/1996 08:00 AM GFRESTIMATED >60.0 11/05/2019 05:48 AM NA 139 02/24/2023 06:35 AM NA 138 11/05/2019 05:48 AM NA 140 08/06/1996 08:00 AM POTASSIUM 3.8 02/24/2023 06:35 AM POTASSIUM 4.1 11/05/2019 05:48 AM POTASSIUM 4.7 08/06/1996 08:00 AM CO2 27 02/24/2023 06:35 AM CO2 24 11/05/2019 05:48 AM CO2 27.7 08/06/1996 08:00 AM Imaging studies: No new images Problem list: Principal Problem: Convulsions (HCC) Active Problems: GERD (gastroesophageal reflux disease) Tobacco use disorder Old myocardial infarct Dyslipidemia, goal LDL below 100 BPH (benign prostatic hyperplasia) Chronic neck pain Intractable low back pain Ambulatory dysfunction Resolved Problems: * No resolved hospital problems. * CLINICAL HISTORY AND PLAN: James Ibarra is a 82 year old male patient with hx of [place] s/p cardiac arrest s/p PPM (2001) and seizures presenting as transfer from OSH for seizure event upon discharge from OSH. Found to have new RLE weakness. Imaging workup showing b/l L>R ICA stenosis. Routine neurochecks and vitals MRI brain wo contrast Plan for DSA pending MRI completion Maintain NPO today for potential DSA today Remainder of care per stroke neurology This patient will be discussed with Dr. Quevedo. Associated attestation - Bennett Quevedo MD - 02/24/2023 9:46 AM EDT Attending note: I have discussed the patient's management with Michel Coleman MD and Get Hollis MD and agree with the note. Please refer to the documented findings and plan of care. The patient's service consisted of an evaluation. I have seen and evaluated the patient on 02/24/23 Angio today * Adelia Burkett DO - 02/23/2023 7:10 AM EDT PROGRESS NOTE - Neurology [facility]-[address] [phone] Name: James Ibarra Location: [facility] [id number] Date: 02/23/2023 Time: 7:36 AM SUBJECTIVE: James Ibarra is a 82 year old patient initially seen by Neurology for concern of seizure activity. Patient first presented to [facility] on 02/20 due to worsening of chronic DJD and muscle spasms. At the time of discharge, patient was noted to have a sudden episode of unresponsiveness a ssociated with extremity jerking and confusion following. CTA noted severe (>70%) L ICA stenosisand moderate (>50%) R ICA stenosis. He was transferred here for LTM monitoring. Changes since last visit: RLE profound weakness, out of proportion to baseline due to R hip surgery with femur maxwell. No history of recent falls. He reported that he noticed the weakness when the nurse was trying to move his R leg and he couldn't move it. This occurred after neurology evaluated him last night and persisted tothis morning. Patient was on 3L supplemental O2 on initial approach. Transitioned to room air and patient continue to saturate in the mid 90s, discontinued the supplemental O2. Will continue to use ELECTRONIC TRAIN CONTROL TECHNICIAN O2 (2-3L) at night. 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 Drug use: Never OBJECTIVE: Physical Examination Most Recent Vital Signs: BP: 139 mmHg/77 mmHg (02/23/23612) Pulse: 72 (02/23/23612) Temp: 36.61 C (02/23/23612) Resp: 18 (02/23/23612) SpO2: 98 % (02/23/23612) Weight: 43.5 kg (96 lb) (02/22/231329) Height: 170.2 cm (5' 7") (02/22/231329) Body mass index is 15.04 kg/m. Vital Signs Last 24 Hours: Systolic BP: Most Recent Systolic BP Av mmHg Min: 117 mmHg Max: 139 mmHg Temperature: Most Recent Temperature Av.6 C Min: 36.11 C Max: 37.11 C Pulse: Pulse Av.7 Min: 69 Max: 82 Respirations: Resp Av.2 Min: 18 Max: 20 SpO2: SpO2 Av.7 % Min: 95 % Max: 100 % Patient State: patient resting comfortably in bed, awake and alert General Examination: Constitutional: Appearance non-obese and no deformities, LTM intact Head/face, ears, nose, throat: normocephalic, atraumatic Cardiovascular: regular rate and regular rhythm Psychiatric: normal judgement and insight, normal mood and normal affect Neurologic Examination: Ophthalmoscopic: deferred due to inadequate dilation Mental Status and Orientation: awake, alert, oriented x 3 Memory: intact to recent and remote recall Attention: normal Knowledge:normal Language: no aphasia Speech: no dysarthria Cranial Nerves: CN 2 - pupils round, equal, reactive to light CN 3, 4, 6 - extra-ocular movements intact and no nystagmus CN 5 - facial sensation intact V1-3 CN 7 - no facial asymmetry CN 8 - intact hearing CN 9, 10 - palate symmetric, uvula midline, no deviation CN 11 - shoulder shrug full strength CN 12 - tongue protrudes midline Sensory: intact to light touch Coordination: intact with finger to nose testing Gait: deferred due to fall risk Muscle Tone: normal Muscle exam: 5/5 BL UE without drift, 1/5 RLE, 4/5 LLE Reflexes: Brachioradialis Biceps Triceps Patellar Achilles Plantars Ginny's Right 2+ 2+ 2+ 2+ 2+ downgoing not present Left 2+ 2+ 2+ 2+ 2+ downgoing not present National [place] of [facility] Stroke Scale: 1A. LOC: 0 1B. Question: 0 1C. Commands: 0 2. Gaze: 0 3. Visual Moss: 0 4. Facial Palsy: 0 5A. Arm Left: 0 5B. Arm Right: 0 6A. Leg Left: 1 6B. Leg Right: 3 7. Ataxia: 0 8. Sensory: 0 9. Aphasia: 0 10. Dysarthria: 0 11. Extinction: 0 Total: 4 LABS: Labs reviewed as indicated below: Tegretol level 4.1, lower limit of normal, trough level (collected 2min before dose) BMP within normal limits Hgb 10.4, anemic Review of prior Diagnostic Tests, Imaging, and Labs: CTA H/N 02/20 IMPRESSION: 1. Greater than 70% stenosis of the left carotid bifurcation with diffuse attenuation of the distal internal carotid artery, with likely moderate to severe stenoses along the intracranial segments. 2. 50-69% stenosis of the right carotid bifurcation. 3. Prominent debris within the visualized trachea. 4. Diffuse bronchial wall thickening may represent bronchitis or asthma. 5. Thickening in the proximal esophagus may represent esophagitis I personally reviewed the following new images. 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 LTM has not detected clin ical or electrographic seizure activity this far and all previous routine EEGs have been wnl. Cannot rule out convulsive syncope, vasovagal event, or a consequence of significant atherosclerotic disease affecting perfusion that could have contributed to the events leading to his transfer to [facility]. With new RLE weakness, high suspicion for stroke not yet visible on CTH vs symptomatic L ICA stenosis.Consulted nsgy for their input. RECOMMENDATIONS/PLAN: New RLE weakness Known BL ICA stenosis - Repeat CTH did not show any acute changes - Consulted neurosurgery for evaluation of symptomatic carotid stenosis - May consider repeat CTA - Consulted PT/OT History of ?seizure disorder 2/2 cardiac arrest - Continue LTM for at least 24hrs - Continue ELECTRONIC TRAIN CONTROL TECHNICIAN tegretol 200 TID Neck pain Hx of DJD - C/w baclofen 10 TID - C/w prednisone taper - DCd valium, patient was not using Chronic conditions CAD/PAD: ELECTRONIC TRAIN CONTROL TECHNICIAN Asa 81mg, Plavix 75 mg, Zocor 40 mg CHF: ELECTRONIC TRAIN CONTROL TECHNICIAN Toprol 12.5 mg COPD: Cont ELECTRONIC TRAIN CONTROL TECHNICIAN inhalers and Flonase GERD: Cont ELECTRONIC TRAIN CONTROL TECHNICIAN Famotidine BR: PRN Colace and Miralax DVT PPx: Lovenox 40mg BPG: ELECTRONIC TRAIN CONTROL TECHNICIAN Flomax and Finasteride Mood: ELECTRONIC TRAIN CONTROL TECHNICIAN Remeron Rehab Therapy Plans: O.T. and P.T. CODE STATUS: Full Code Discussion of adv directives occurred with - adult: Patient Patient discussed with Dr. Bustamante Associated attestation - Barber Bustamante MD - 02/23/2023 2:04 PM EDT I saw and evaluated the patient today. I have reviewed the trainee note and agree. documented in this encounter H&P Notes * Bennett Quevedo MD - 02/24/2023 9:47 AM EDT HISTORY & PHYSICAL INTERVAL NOTE - Neurosurgery Service [address] [id number] History and Physical Update: Name: James Ibarra Location: OR [facility]/MD Date: 02/24/2023 Time: 9:47 AM Date and Time Patient Was Seen: 02/24/2023 at 9:47 AM James Ibarra is a 82 year old year-old male with Problem List Items Addressed This Visit None Visit Diagnoses Seizure-like activity (HCC) Chest pain Relevant Orders EKG who presents today us for Procedure(s) with comments: CATHETER PLACEMENT INTERNAL CAROTID ARTERY (Bilateral) - diag angio, mac req 10a start, MRI in morning CATHETER PLACEMENT VERTEBRAL ARTERY, (Right) I have reviewed the H&P previously performed and examined the patient today. No new findings are noted, please see update below, the HP is dated Visit date not found The patient denies any interval changes or new symptoms. After an extensive discussion with the patient and the patients family I recommended to proceed with the planned procedure and decision was made to go ahead with this plan after weighing the available treatment options, including conservativetherapy for their risks and benefits. The patient and/or their family understand the risk and benefits, there are no additional questions and the plan is to proceed. The risk and benefits of the procedure were explained and all questions were answered. The patient gave informed consent. [employer] (ASA) SCORE: Patient Condition: 3 A patient with severe systemic disease PHYSICAL EXAMINATION: Visit Vital Signs: Patient Vitals for the past 24 hrs: BP Temp Temp src Pulse Resp SpO2 02/24/23 0854 147/86 36.1 C (97 F) Tympanic 98 30 97 % 02/24/23 0600 154/75 36.2 C (97.2 F) Tympanic 67 20 96 % 02/24/23 0155 128/68 36.3 C (97.3 F) Tympanic 76 20 95 % 02/23/23 2209 143/70 36.1 C (97 F) Tympanic 75 20 99 % 02/23/23 2111 -- -- -- -- 26 -- 02/23/23 1833 111/58 36.8 C (98.2 F) -- 80 24 98 % 02/23/23 1700 120/63 -- -- 75 20 98 % Constitutional: normal, well developed HEENT: normal: normocephalic, atraumatic Eyes: sclera and conjunctiva normal Neck: supple Heart: normal rate Lungs: normal respiratory effort Musculoskeletal: muscle bulk normal Extremities: no clubbing, cyanosis, or edema, otherwise grossly normal, warm, and dry Skin: warm, dry: Neuro: Awake, alert, oriented to person, place, not time PERRL EOMI No facial droop No pronator drift DEGROOT to command RUE 2/5 LUE 5/5 RLE 5/5 LLE 5/5 Sensation grossly intact REVIEW: Review of patient's allergies indicates: Allergen Reactions Tiotropium "Couldn't catch his breath" LABS: Antiplatelet function testing: Lab Results Component Value Date/Time VERIFYNOW ASPIRIN - [facility] 592 02/23/2023 02:02 PM VERIFYNOW P2Y12 - [facility] 82 (L) 02/23/2023 02:02 PM Labs reviewed as indicated below: : MEDICATIONS: Current Medications - Prior to This Encounter Medication Sig Last Dose Discont. Baclofen 10 MG Oral Tablet (Lioresal) Take 1 Tablet by mouth 3 times a day as needed for Muscle spasms. Unknown diazePAM 5 MG Oral Tablet (Valium) Take 2 Tablets by mouth every 6 hours as needed for Muscle spasms for up to 15 days. Unknown predniSONE 20 MG Oral Tablet (Deltasone) Take 2 Tablets by mouth daily for 3 days, THEN 1.5 Tabletsdaily for 2 days, THEN 1 Tablet daily for 2 days, THEN 0.5 Tablets daily for 1 day. Do not start before February 22, 2023. Unknown Loratadine 10 MG Oral Capsule Take 1 Capsule by mouth in the morning. Unknown tiZANidine HCl 4 MG Oral Capsule Take 1 Capsule by mouth 3 times a day as needed for Muscle spasms.Unknown Sucralfate 1 GM/10ML Oral Suspension (Carafate) Take 10 mL by mouth in the morning and 10 mL at noon and 10 mL in the evening and 10 mL before bedtime. Unknown oxyCODONE HCl 5 MG Oral Tablet (Oxy IR) Take 1 Tablet by mouth every 4 hours as needed for Pain, Severe. Unknown traMADol HCl 50 MG Oral Tablet (Ultram) Take by mouth 0.5 Tablets every 6 hours as needed for Pain,Severe (pain intensity 7 to 10/10). Unknown Calcium Carbonate-Vitamin D 500-200 MG-UNIT Oral Tablet Take by mouth 1 Tablet at noon AND 1 Tabletin the evening. Do not start before February 26, 2022. Unknown GetGo Rolling Walker To assist with proper walking Unknown Lidocaine 4 % External Patch (Aspercreme) Place topically on the skin 1 Patch in the morning. Do not start before February 26, 2022. Unknown Vitamin D3 25 MCG (1000 UT) Oral Tablet (Vitamin D3) Take by mouth 2 Tablets in the morning. Do notstart before February 26, 2022. Unknown Budesonide-Formoterol Fumarate 160-4.5 MCG/ACT Inhalation Aerosol (Symbicort) Inhale 2 Puffs by mouth in the morning and 2 Puffs before bedtime. Unknown Clopidogrel Bisulfate 75 MG Oral Tablet (pLAVix) Take 1 Tablet by mouth in the morning. Unknown Diclofenac Sodium 1 % External Gel (Voltaren) APPLY 1 G TOPICALLY 3 TIMES A DAY Unknown Famotidine 20 MG Oral Tablet (Pepcid) TAKE 1 TABLET BY MOUTH DAILY BEFORE A MEAL Unknown Fluticasone Propionate 50 MCG/ACT Nasal Suspension (Flonase) SPRAY 2 SPRAYS INTO EACH NOSTRIL EVERYDAY Unknown Folic Acid 1 MG Oral Tablet Take 1 Tablet by mouth in the morning. Unknown Mirtazapine 30 MG Oral Tablet (Remeron) Take 1 Tablet by mouth at bedtime. Unknown Tamsulosin HCl 0.4 MG Oral Capsule (Flomax) Take 2 Capsules by mouth in the morning. Unknown acetaminophen (TYLENOL) 325 MG Tablet Take 2 Tabs by mouth every 6 hours as needed for Pain. Unknown docusate sodium (COLACE) 100 MG Capsule Take 1 Cap by mouth 2 times a day. Unknown polyethylene glycol 3350 (MIRALAX) packet Take 1 Packet by mouth daily. Unknown Albuterol Sulfate (VENTOLIN HFA) 108 (90 Base) MCG/ACT AERS Inhale 2 Puffs by mouth every 4 hours as needed for Shortness of Breath or Wheezing. Unknown Aspirin 81 MG Oral Tablet Delayed Release Take 1 Tablet by mouth in the morning. Unknown pantoprazole (PROTONIX) 40 MG TBEC Take 1 Tablet by mouth in the morning and 1 Tablet before bedtime. Unknown finasteride (PROSCAR) 5 MG Tablet Take 1 Tablet by mouth in the morning. Unknown furosemide (LASIX) 20 MG Tablet Take 1 Tablet by mouth daily as needed (chest pressure / weight gain). Unknown KLOR-CON 10 10 MEQ TBCR Take 1 Tablet by mouth in the morning. Unknown metoprolol succinate XL (TOPROL XL) 25 MG TB24 Take 0.5 Tablets by mouth in the morning. Unknown simvastatin (ZOCOR) 40 MG Tablet Take 1 Tablet by mouth every evening. Unknown TEGRETOL 200 MG PO TABS one pill three times daily Unknown * Jhon Oswald MD - 02/22/2023 11:56 AM EDT HISTORY AND PHYSICAL EXAMINATION - Neurology [address] [id number] Name: James Ibarra Location: [facility] A463/B Date: 02/22/2023 Time: 3:15 PM Presenting Problem: seizure Person Providing History: patient, significant other at bedside, chart review. HPI: 82 year old male with PMHx cardiac arrest 2001, s/p pacemaker, [place], CHF, history of epilepsy/"spells" since his cardiac arrest which are being treated with Tegretol 200mg TID. He initially presented to [facility] on 02/20 due to worsening of his chronic DJD neck pain and muscle spasms. He was started on 10 mg TID of baclofen, and prednisone, Valium increased from 5 to 10 mg Q6H PRN. When he was about to be discharged 02/21, he reportedly had a sudden episode of unresponsiveness, was observed to have some jerking movements of his extremities. Upon further questioning, the significant other at bedside said that he started shaking both of his hands and at that time the medical staff asked her to leave the room. When she came back, the patient was confused and did not recognize her or the team and asked them to leave as he thought that he was at his home. He was also noted to be hypotensive during the episode, and subsequent CTA found severe LICA (>70%) stenosis and moderate AARON (50-69%)stenosis. Afterwards he improved somewhat but did not come back to baseline, which prompted request for transfer to [facility] for LTM and possibly MRI (although not sure about feasibility of MRI given his pacemaker). The patient was alert, and oriented to self, place, and time (with prompting). Said he had a remotehx of seizure and has never had seizures since 2001 but keeps taking his ASM. He follows commands and answers questions appropriately. He uses 3L of oxygen at night due to his COPD. Denies alcohol use. Would like to stay full code. Has a living will and his POA is Thania Regalado, his significant other (all documents were given to the nurse to be scanned in his chart). 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 90% RCA, 90% LCx, both PTCA/Stent by [facility] Generalized osteoarthritis GERD (gastroesophageal reflux disease) Major depression, single episode Prostatitis, acute 2011 PUD (peptic ulcer disease) 2018 ruptured ulcer - needed clipped Tobacco use disorder PAST SURGICAL HISTORY: Past Surgical History: Procedure Laterality Date REVISE LUMBAR SPINE, ANTERIOR 1973 FAMILY HISTORY: Family History Problem Relation Age of Onset Lung Disorder Mother Heart Disorder Brother Valvular d/o, TAA Heart Disorder Brother Arrhythmia Heart Disorder Sister [place] in 40's SOCIAL HISTORY: Social History Tobacco Use Smoking status: Every Day Packs/day: 1.50 Years: 40.00 Pack years: 60.00 Types: Cigarettes Smokeless tobacco: Never Tobacco comments: Now down to 1/2 pack/day of small cigars Vaping Use Vaping Use: Never used Substance Use Topics Alcohol use: Not Currently Comment: occas. Drug use: Never ALLERGIES: Tiotropium CURRENT MEDICATIONS: Note that completed medications (per the MAR) continue to display for 24 hours. Ordered medicationsto be given in the future also display. Current Facility-Administered Medications Medication Dose Route Frequency Provider Acetaminophen (Tylenol) tab 650 mg 650 mg Oral Q6H PRN Jhon Oswald MD Albuterol Sulfate (Proventil) (2.5 MG/3ML) 0.083% inhalation solution 2.5 mg 2.5 mg Nebulizer Q4H PRN Jhon Oswald MD [START ON 02/23/2023] aspirin enteric coated tab 81 mg 81 mg Oral Daily(AM) Jhon Oswald MD Baclofen (Lioresal) tab 10 mg 10 mg Oral TID(AM/NOON/HS) Jhon Oswald MD carBAMazepine (Tegretol) tab 200 mg 200 mg Oral TID(AM/NOON/HS) Jhon Oswald MD [START ON 02/23/2023] clopidogrel (pLAVix) tab 75 mg 75 mg Oral Daily(AM) Jhon Oswald MD diazePAM (Valium) tab 10 mg 10 mg Oral Q6H PRN Jhon Oswald MD Docusate Sodium (Colace) cap 100 mg 100 mg Oral Daily PRN Jhon Oswald MD [START ON 02/23/2023] Enoxaparin (Lovenox) inj 40 mg 40 mg Subcutaneous Daily 1000 Jhon Oswald MD [START ON 02/23/2023] Famotidine (Pepcid) tab 20 mg 20 mg Oral Daily(AM) Jhon Oswald MD [START ON 02/23/2023] Finasteride (Proscar) tab 5 mg 5 mg Oral Daily(AM) Jhon Oswald MD [START ON 02/23/2023] fluticasone (Flonase) nasal inhaler 2 [place] 2 [place] Each Nostril Daily(AM) Jhon Oswald MD [START ON 02/23/2023] fluticasone furoate-vilanterol (BREO ellipta) 200-25 MCG/ACT inhaler 1 Puff1 Puff Inhalation Daily(AM) Jhon Oswald MD [START ON 02/23/2023] folic acid tab 1 mg 1 mg Oral Daily(AM) Jhon Oswald MD [START ON 02/23/2023] Lidocaine (Aspercreme) 4 % patch 1 Patch 1 Patch Transdermal Daily(AM) Jhon Oswald MD [START ON 02/23/2023] metoprolol succinate XL (toPROL XL) tab 12.5 mg 12.5 mg Oral Daily(AM) Jhon Oswald MD Mirtazapine (Remeron) tab 30 mg 30 mg Oral HS Jhon Oswald MD Polyethylene Glycol 3350 (Miralax) oral powder 17 g 1 Packet Oral Daily PRN Jhon Oswald MD [START ON 02/23/2023] predniSONE (Deltasone) tab 40 mg 40 mg Oral Daily(AM) Jhon Oswald MD Followed by [START ON 02/25/2023] predniSONE (Deltasone) tab 30 mg 30 mg Oral Daily(AM) Jhon Oswald MD Followed by [START ON 02/27/2023] predniSONE (Deltasone) tab 20 mg 20 mg Oral Daily(AM) Jhon Oswald MD Followed by [START ON 03/01/2023] predniSONE (Deltasone) tab 10 mg 10 mg Oral Daily(AM) Jhon Oswald MD Simvastatin (Zocor) tab 40 mg 40 mg Oral QPM 2000 Jhon Oswald MD sodium chloride 0.9 % flush/inj 3 mL 3 mL IV Push PRN Jhon Oswald MD [START ON 02/23/2023] tamsulosin (Flomax) cap 0.8 mg 0.8 mg Oral Daily(AM) Jhon Oswald MD ROS: Neck pain is still positive. Denies headache, nausea, blurry vision, abd pain, chest pain, SOB. PHYSICAL EXAMINATION: Most Recent Vital Signs: BP: 128 mmHg/63 mmHg (02/22/23 1504) Pulse: 73 (02/22/23 1504) Temp: 36.39 C (02/22/23 1504) Resp: 20 (02/22/23 1504) SpO2: 96 % (02/22/23 1504) Weight: 43.5 kg (96 lb) (02/22/23 1330) Height: 170.2 cm (5' 7") (02/22/23 1330) Body mass index is 15.04 kg/m. Vital Signs Last 24 Hours: Systolic BP: Most Recent Systolic BP Av mmHg Min: 128 mmHg Max: 132 mmHg Temperature: Most Recent Temperature Av.6 C Min: 36.39 C Max: 36.78 C Pulse: Pulse Av Min: 73 Max: 75 Respirations: Resp Av Min: 20 Max: 20 SpO2: SpO2 Av.5 % Min: 96 % Max: 97 % General Examination: Constitutional: cachectic. Head/face, ears, nose, throat: normocephalic, atraumatic Cardiovascular: regualar rate and rhythm. Distant heart sounds. Chest: mild wheezes, no other added sounds, normal resp effort. On 3 L of LFNC. Psychiatric: normal judgement and insight, normal mood and normal affect Neurologic Examination: Ophthalmoscopic: deferred due to suboptimal dilation Mental Status and Orientation: awake, alert, oriented x 3 Attention: normal Knowledge:normal Language: no aphasia Speech: no dysarthria Cranial Nerves: CN 2 - pupils round, equal, reactive to light CN 3, 4, 6 - extra-ocular movements intact and no nystagmus CN 5 - facial sensation intact V1-3 CN 7 - no facial asymmetry CN 8 - intact hearing CN 9, 10 - palate symmetric, uvula midline, no deviation CN 11 - shoulder shrug full strength CN 12 - tongue protrudes midline Sensory: intact to light touch Coordination: mild dysmetria on the left with FTN Gait: deferred due to fall risk. uses a walker at baseline Muscle Tone: normal Muscle exam: strength 5/5 upper and lower extremities and no drift except the RLE due to hip/knee surgery. Reflexes: Brachioradialis Biceps Patellar Achilles Plantars Ginny's Right 2+ 2+ 1+ 1+ downgoing not present Left 2+ 2+ 1+ 1+ downgoing not present STUDIES: Labs: Lab results within last 7 days (see chart for full results) Units 02/22/23 0632 02/21/23 0631 02/20/23 0818 Sodium mmol/L 139 141 142 Potassium mmol/L 3.9 4.0 4.5 Chloride mmol/L 105 103 102 CO2 mmol/L 26 33* 31 BUN mg/dL 17 17 24* Creatinine mg/dL 0.6 0.6 0.6 Lab results within last 7 days (see chart for full results) Units 02/21/23 0631 02/20/23 0818 HGB g/dL 11.0* 12.4* HCT % 34.3* 36.7* WBC K/uL 7.61 10.05 PLT K/uL 271 255 Imaging: CT HEAD/BRAIN WO CONTRAST Result Date: 02/21/2023 IMPRESSION: No acute intracranial findings. Atrophy and small vessel ischemic changes. THIS DOCUMENT HAS BEEN ELECTRONICALLY SIGNED BY ARIANA YU MD CT C SPINE WO CONTRAST Result Date: 02/20/2023 IMPRESSION: 1. Age indeterminate upper endplate deformities at the T2 and T3 levels. 2. No acute traumatic process of the cervical spine. 3. Cervical spondylosis as above. THIS DOCUMENT HAS BEEN ELECTRONICALLY SIGNED BY LETICIA CHRISTOPHER MD CTA NECK Result Date: 02/20/2023 IMPRESSION: 1. Greater than 70% stenosis of the left carotid bifurcation with diffuse attenuation of the distal internal carotid artery, with likely moderate to severe stenoses along the intracranialsegments. 2. 50-69% stenosis of the right carotid bifurcation. 3. Prominent debris within the visualized trachea. 4. Diffuse bronchial wall thickening may represent bronchitis or asthma. 5. Thickening in the proximal esophagus may represent esophagitis. REFERENCES: NASCET CRITERIA. The degree of stenosis in the cervical segment of the internal carotid artery is based on NASCET criteria. Normal isno stenosis. Mild is less than 50% stenosis. Moderate is 50-69% stenosis. Severe is 70% to 99% stenosis. Total occlusion is no detectable patent lumen. THIS DOCUMENT HAS BEEN ELECTRONICALLY SIGNED BYLETICIA CHRISTOPHER MD XR CHEST 1 VIEW Result Date: 02/21/2023 IMPRESSION: Mild hyperinflation without airspace consolidation. THIS DOCUMENT HAS BEEN ELECTRONICALLY SIGNED BY ARIANA YU MD IMPRESSION: 82 year old male with PMHx cardiac arrest 2001, s/p pacemaker, [place], CHF, history of epilepsy/"spells" since his cardiac arrest which are being treated with Tegretol 200mg TID was admitted to [facility] for neck pain and managed with baclofen, prednisone taper, and increased valium. On dayof hid discharge, he reportedly had a seizure like activity with post-ictal confusion which prompted the team to transfer him to [facility] for LTM monitoring. On exam the patient is AOx3, answering questions appropriately, and his neuro exam is normal except baseline RLE weakness. CTH is unremarkable but CTA neck shows >70% LICA stenosis and moderate AARON stenosis. The patient's history is suggestive of possible seizure activity. However, he has been compliant ofhis ASM and does not have any new meds/infection/or metabolic cause to lower his seizure threshold.The patient was reportedly hypotensive which could have caused him to have a convulsive syncope. Another differential could be a vasovagal episode causing him to have a generalized shaking as he had neck pain and reportedly had neck massages by PT/OT. RECOMMENDATIONS / PLAN: #Remote Hx of seizure disorder #Seizure vs convulsive syncope vs Vasovagal episode. Admit the patient under neurology service - LTM for 24 hours to capture any possible seizure activities. - Cont ELECTRONIC TRAIN CONTROL TECHNICIAN Tegretol 200 mg TID. - Check Tegretol levels tonight before receiving the Tegretol dose at 10 PM - repeat CTH tomorrow morning to look for any possible ischemic changes given his current ICAs. #Neck pain Cont newly started Baclofen 10mg TID Cont Prednisone taper starting at 40mg for 2 days each. Cont Valium 10mg q6h PRN (increased from 5mg q6h PRN but the patient did not receive any dose at OSH?) Tylenol q6h 2 tabs for mild pain and fever >38 Chronic conditions: CAD/PAD: continue ELECTRONIC TRAIN CONTROL TECHNICIAN Asa 81mg and Plavix 75 mg. Cont ELECTRONIC TRAIN CONTROL TECHNICIAN Zocor 40 mg CHF: ELECTRONIC TRAIN CONTROL TECHNICIAN Toprol 12.5 mg COPD: Cont ELECTRONIC TRAIN CONTROL TECHNICIAN inhalers and Flonase GERD: Cont ELECTRONIC TRAIN CONTROL TECHNICIAN Famotidine BR: PRN Colace nad Miralax DVT PPx: Lovenox 40mg BPG: ELECTRONIC TRAIN CONTROL TECHNICIAN Flomax and Finasteride Mood: Cont ELECTRONIC TRAIN CONTROL TECHNICIAN Remeron Based on the patient's current medical condition and the proposed treatment plan, I am anticipatingdischarge from the hospital not earlier than 02/23/23. The plans for post-hospital care will be determined by the patient's response to the inpatient services provided and will be detailed in the discharge instructions and hospital discharge summary. CODE STATUS: Full Code Discussion of adv directives occurred with - adult: Patient The patient was examined and was discussed with Dr. Barber Bustamante MD. Associated attestation - Barber Bustamante MD - 02/23/2023 1:55 PM EDT I saw and evaluated the patient 02/22. I have reviewed the trainee note and agree. documented in this encounter Procedure Notes * Tia Calderon DO - 02/24/2023 7:17 AM EDT Electroencephalogram Report [id number] [facility], [facility] [address] FLO[address] [facility] [id number] Name: James Ibarra Age: [age] year old Study Start Date/Time: 02/23/2023, 399 Study End Date/Time: 02/24/2023, 813 Location: [facility] A463/B Referring Physician: Jack Oswald Clinical Summary: James Ibarra is a/an 82 year old male undergoing EEG evaluation for: Epilepsy: clinical suspicion of epilepsy Neuroactive Medications: Tegretol Technical Summary: This digitally acquired electroencephalogram was performed using 21 scalp electrodes in the international 10/20 system placement, with additional scalp, precordial, and other surface electrodes used for electrical referencing and artifact detection. Video monitoring was utilized and reviewed periodically by the physician for electroclinical correlation. Physician access to datawas available throughout the recording. Activation Procedures: No activation procedures were performed for this study period. Background: Abnormal. Posterior dominant rhythm: absent. Amplitude: 20-70 (medium). Symmetry: Symmetric Organization: Mildly disorganized Reactivity: Present and reactive to external stimuli Variability: Present with distinct states of arousal Continuity: Continuous. Generalized slowing: Mild to moderate (Theta predominant). Sleep: Drowsiness was observed due to the presence of waxing and waning of the posterior reactive rhythm with eventual replacement by a mixture of Beta, Alpha, and Theta activity., Stage 2 sleep was observed due to the presence of symmetric vertex waves, sleep spindles, and K complexes. Interictal Findings: There were frequent 1 Hz runs of discharges with triphasic morphology though maximally represented bitemporally, predominantly with more alert states. Clinical and Electrographic Events: No clinical or electrographic events were recorded. Summary of Findings: Abnormal: This EEG is abnormal due to the presence of: 1. Moderate generalized slowing, indicative of nonspecific global dysfunction. 2. Frequent runs of triphasic waves, a marker of encephalopathy There were no clinical or electrographic seizures during this study. Comparison to Previous Studies: This EEG is not significantly changed. Clinical Comments: Generalized slowing - The above-described findings of diffuse slowing are etiologically non-specific, and similar findings have been reported in cases of toxic, metabolic, hypoxic ischemic, infectious, medication, sleep deprivation, postictal, and other causes of diffuse and multifocal encephalopathy. Clinical correlation of this differential diagnosis is suggested. Triphasics - Generalized periodic discharges, with triphasic morphology, traditionally associated metabolic encephalopathy, are a nonspecific indicator of diffuse cortical irritability and neuronal derangements, late-stage status epilepticus, cerebral anoxia, infections, and rarely dementia. * Tia Calderon DO - 02/23/2023 9:28 AM EDT Electroencephalogram Report [id number] [facility], [facility] 4TH FLOOR [address] [facility] [address] Name: James Ibarra Age: [age] year old Study Start Date/Time: 02/22/2023, 1716 Study End Date/Time: 02/23/2023, 0400 Location: [facility] A463/B Referring Physician: Jack Oswald Clinical Summary: James Ibarra is a/an 82 year old male undergoing EEG evaluation for: Epilepsy: clinical suspicion of epilepsy Neuroactive Medications: Tegretol Technical Summary: This digitally acquired electroencephalogram was performed using 21 scalp electrodes in the international 10/20 system placement, with additional scalp, precordial, and other surface electrodes used for electrical referencing and artifact detection. Video monitoring was utilized and reviewed periodically by the physician for electroclinical correlation. Physician access to datawas available throughout the recording. Activation Procedures: Photic stimulation resulted in: no evidence of change from baseline Background: Abnormal. Posterior dominant rhythm: absent. Amplitude: 20-70 (medium). Symmetry: Symmetric Organization: Mildly disorganized Reactivity: Present and reactive to external stimuli Variability: Present with distinct states of arousal Continuity: Continuous. Generalized slowing: Mild to moderate (Theta predominant). EKG: Normal sinus rhythm Sleep: Drowsiness was observed due to the presence of waxing and waning of the posterior reactive rhythm with eventual replacement by a mixture of Beta, Alpha, and Theta activity., Stage 2 sleep was observed due to the presence of symmetric vertex waves, sleep spindles, and K complexes. Interictal Findings: There were rare brief low-moderate voltage 1 Hz runs of discharges with triphasic morphology thoughmaximally represented bitemporally, predominantly with more alert states. Clinical and Electrographic Events: No clinical or electrographic events were recorded. Summary of Findings: Abnormal: This EEG is abnormal due to the presence of: 1. Moderate generalized slowing, indicative of nonspecific global dysfunction. 2. Rare runs of triphasic waves, a marker of encephalopathy There were no clinical or electrographic seizures during this study. Comparison to Previous Studies: Prior EEG in 2002 was normal with excess beta from sedative medications. Clinical Comments: Generalized slowing - The above-described findings of diffuse slowing are etiologically non-specific, and similar findings have been reported in cases of toxic, metabolic, hypoxic ischemic, infectious, medication, sleep deprivation, postictal, and other causes of diffuse and multifocal encephalopathy. Clinical correlation of this differential diagnosis is suggested. Triphasics - Generalized periodic discharges, with triphasic morphology, traditionally associated metabolic encephalopathy, are a nonspecific indicator of diffuse cortical irritability and neuronal derangements, late-stage status epilepticus, cerebral anoxia, infections, and rarely dementia. documented in this encounter Consult Notes * Gudelia Liriano RN - 02/26/2023 2:22 PM EDTAssociated Order(s): WOUND/OSTOMY CONSULT IP; WOUND/OSTOMY CONSULT IP WOUnd ostomy nursing asked to see this 82 year old now in NSICU noted to have alteration skin integrity on admission including sacral pressure injury Will defer management of skin tear and assessment of scabs to bedside nursing Pt has history of stage 3 pressure injury followed by outside wound clinic reports has been using efectivox Pt provided verbal permission for image to be placed in chart to facilitate clinical communication Pt currently out of bed to chair Waffle cushion in use CUrrently using Midnight low air loss mattress which is standard mattress for ICU/CICU Able to stand with one assist Pt with 4x2x0.1cm area of erythema and scar tissue with fragile epithelium No periwound s/sof infection Currently with allevyn foam in use Reapplied Location, history and appearance of wound suggestive of resolving stage 3 pressure injury present on admission Recommend Continue allevyn foam dressing change q 3 days and prn Continue on Genesis low air loss mattress which is standard mattress for ICU/CICU When pt leaves unit will need alternating air/low air loss bed with microclimate control sheet ( [employer] ) Reposition q 2 hours Utilize moisture absorbant/moisture wicking pads Keep heels elevated off of bed and chair Utilize waffle cushion when OOB Limit sitting to 2 hours Consider nutrition consult * NARINDER De La Rosa/Maura - 02/26/2023 11:59 AM EDTAssociated Order(s): ADULT OCCUPATIONAL THERAPY CONSULT IP; ADULT OCCUPATIONAL THERAPY CONSULT IP; ADULT OCCUPATIONAL THERAPY CONSULT IP GENERAL EVALUATION - Occupational Therapy [address] [address] Name: James Ibarra Location: [facility] [id number] Date: 02/26/2023 Time: 12:00 PM James Ibarra is a 82 year old male. Patient Status: Inpatient Insurance: Payor: DANYA DANIEL ([employer]) MEDICARE ADVANTAGE Plan: e-contratos PPO Product Type:*No Product type* Patient Seen: at bedside, nursing cleared patient for therapy Patient Identified By: Name, ID Band and Date Diagnosis: seizure-like activity, ICH (02/26/23901) Status of treatment: Evaluation completed (02/26/23901) Orders: OT evaluation and treatment (02/26/23901) Weight Bearing Status: Weight bearing as tolerated (02/26/23901) Precautions: Alarms;Falls;Safety (02/26/23901) Total Treatment Time: 30 (02/26/23901) Past Medical History: Past Medical History: Diagnosis Date BPH (benign prostatic hyperplasia) Chronic neck pain Convulsions (HCC) 04/26 Dyslipidemia, goal to be determined F/u for non Q wave myocardial infarction 04/26 90% RCA, 90% LCx, both PTCA/Stent by Trimble Generalized osteoarthritis GERD (gastroesophageal reflux disease) Major depression, single episode Prostatitis, acute 2011 PUD (peptic ulcer disease) 2018 ruptured ulcer - needed clipped Tobacco use disorder Past Surgical History: Past Surgical History: Procedure Laterality Date CAROTID (INTERNAL) ARTERY CATHETHER PLACEMENT Bilateral 02/24/2023 CATHETER PLACEMENT INTERNAL CAROTID ARTERY performed by Bennett Quevedo MD at OR [facility] REVISE LUMBAR SPINE, ANTERIOR 1973 VERTEBRAL ARTERY CATHETER PLACEMENT Right 02/24/2023 CATHETER PLACEMENT VERTEBRAL ARTERY, performed by Bennett Quevedo MD at OR [facility] Social History/Disposition Lives with: Friend ("my girl") (02/26/23931) Assistance available: Yes (02/26/23931) Dwelling type: Single story home (02/26/23931) Entry steps: 3 (02/26/23931) Inside steps: None (02/26/23931) Bedroom location: 1st floor (02/26/23931) Bath location: 1st floor full bath (02/26/23931) Prior Level of Function Reported by: Patient (02/26/23901) Ambulation: Ambulatory without device (02/26/23901) Grooming: Independent (02/26/23901) Bathing: Independent (02/26/23901) Dressing: Independent (02/26/23901) Feeding: Independent (02/26/23901) Toileting: Independent (02/26/23901) Durable Medical Equipment at home: Bedside commode;Rolling walker;Straight cane;Shower chair (02/26/23901) Subjective: Pt supine in bed, agreeable to OT session. Girlfriend present in room Pain: Patient has complaints of pain. Pain located LLE, not rated at this time. Observations Consciousness: Alert (02/26/23901) Orientation: Person;Place (02/26/23901) Psychosocial: Patient can communicate basic needs;Patient can converse in a social setting (02/26/23901) Sitting posture: Forward head;Rounded shoulders (02/26/23901) Standing posture: Forward head;Rounded shoulders (02/26/23901) Safety awareness: The Patient verbalizes insight of current deficits.;The Patient demonstrates carryover of insight during functional tasks.;Needs cueing supervision. (02/26/23901) Other Findings Endurance: Sitting tolerance;Standing tolerance;Functional activity;Fair (02/26/23901) Light touch sensation: LUE;RUE;Intact (02/26/23901) Coordination: LUE;RUE;Intact (02/26/23901) Current Functional Status: Bilateral Upper Extremity Range of Motion: WFL (02/26/23901) Strength Assessment: (BUE 4/5 throughout) (02/26/23901) Self Care Able to provide self care: Yes (02/26/23901) Dressing Upper Body: Moderate Assistance (to don robe) (02/26/23901) Lower Body: Moderate Assistance (to don socks) (02/26/23901) Functional Ambulation Assistive Device: Rolling walker (02/26/23901) Distance in feet:: 40 (+ 10 + 10 without device at Anshul x2) (02/26/23901) Level of Assistance: Minimal Assistance (02/26/23901) Bed Mobility Supine-Sit: Contact Guard (02/26/23901) OT Transfers Sit-Stand: Minimal Assistance (02/26/23901) Stand-Sit: Minimal Assistance (02/26/23901) Toilet: Moderate Assistance (02/26/23901) Balance Sit (Static): Fair (02/26/23901) Sit (Dynamic): Fair (-) (02/26/23901) Stand (Static): Poor (+) (02/26/23901) Stand (Dynamic): Poor (+ to Poor) (02/26/23901) Alarm Status Patient positioned in: Chair (02/26/23901) With: Pressure pad alarm intact and functioning and call grullon in reach (02/26/23901) Patient and Family Goals: to get well and to return home Patient Education Education Topic: Role of OT;Plan of care goals (02/26/23901) Review of Precautions: Safety;Fall (02/26/23901) Method of Education: Verbalized to patient (02/26/23901) Education Provided to: Patient (02/26/23901) Response to Education: Receptive and agreeable to education (02/26/23901) Barriers to learning: None (02/26/23901) Preferred learning method: Combination (02/26/23901) Treatment Provided: Self Senior Living Management Trainin minutes Evaluation Moderate Complexity 17 minutes - 72510: Patient was cooperative and pleasant during treatment session. Moderate complexity evaluation performed and 3-5 activity limitations were identified, including ADL deficit, functional mobility deficit, bed mobility deficit, decreased strength, decreased endurance and impaired balance. Minimal or moderate modification of the functional task was necessary to complete the evaluation. Deficits Requiring O.T. Treatment: Deficits requiring O.T. treatment needs: ADL/self-care;Balance;Endurance;Functional mobility;Safety;Upper extremity strength (02/26/23901) Assessment: Patient was admitted to [facility] on 02/24/23 for seizure-like activity, ICH. Patient was cooperative and agreeable to participate in OT evaluation this date. Patient was alert but somewhat confused. Patient/girlfriend reported that prior to admission he was independent with ADLs and mobility. During evaluation, pt completed bed mobility with contact guard, sit>stand transfers with minAx1 and ambulated 10ft + 10ft with walker with Anshul x2 and handheld assist due to unsteadiness. He required modA for toilet transfer due to low surface. Cues provided to use grab bar for safety. He was able to don robe and socks while seated with modA 2/2 decreased functional reach. In addition to evaluation, pt ambulated 40ft with walker improving to Anshul x1. Pt fatigues quickly and was noted to beshort of breath. Following session pt seated in chair with all needs met. Currently, due to medicalstatus patient is presenting with deficits in ADLs and functional mobility, as well as decreased strength, decreased endurance, decreased balance and safety. Patient would benefit from continued OT services to improve independence in ADLs and functional mobility. When medically appropriate, Please consider post-acute care services which may include home health, [place] [facility] [place], outpatient therapyor inpatient rehabilitation. The level of care will be determined in collaboration with patient, family/caregiver and care team members. Goals: Demonstrates Self-Care at: UB Bathing: supervision LB Bathing: supervision UB Dressing: supervision to don gown/robe/shirt LB Dressing: supervision to don socks/shoes/pants Grooming: supervision Toileting: supervision Demonstrates Bed Mobility at: Supine to sit: supervision Sit to supine: supervision Demonstrates balance at: Static/Dynamic sitting balance: Fair+ Static/Dynamic standing balance: Fair Transfers: Sit to Stand: supervision Stand to Sit: supervision Toilet: supervision Functional Ambulation at supervision with AD PRN Increase Strength of B UEs 1/2 muscle grade Goal Time Frame: 10 visits Treatment Plan: Safety, Bed mobility training, Functional Ambulation, Upper extremity strengthening, Balance activities, ADL training and Endurance Anticipated Frequency (on eval): 3 to 5 times per week (02/26/23901) AM-PAC Help From Another Person Eating Meals: A little (02/26/23901) Help From Another Person Taking Care of Personal Grooming: A little (02/26/23901) Help From Another Person To Put On/Take Off Upper Body Clothing: A little (02/26/23901) Help From Another Person To Put On/Take Off Lower Body Clothing: A lot (02/26/23901) Help From Another Person Toileting: A lot (02/26/23901) Help From Another Person Bathing: A lot (02/26/23901) OT AM-PAC Score: 15 (02/26/23901) OT AM-PAC t-Scale Score: 34.69 (02/26/23901) HLM (Highest Level of Mobility) Goal: Level 4 move to chair/commode (02/26/23931) A portion of this AM-PAC assessment not scored based on functional assessment; rather clinical decision making utilized based on current findings and/or prior level of function. Please refer to future AM-PAC calculations of functional ability as they become available. * Varsha Bourne, PT - 02/26/2023 9:32 AM EDTAssociated Order(s): ADULT PHYSICAL THERAPY CONSULT IP; ADULT PHYSICAL THERAPY CONSULT IP; ADULT PHYSICAL THERAPY CONSULT IP GENERAL EVALUATION - Physical Therapy [address] [address] Name: James Ibarra Location: [address] Date: 02/26/2023 Time: 11:56 AM James Ibarra is a/an 82 year old male. Patient Status: Inpatient Insurance: Payor: [employer] [place] [employer]) MEDICARE ADVANTAGE Plan: e-contratos PPO Product Type:*No Product type* Patient Seen: at bedside, nursing cleared patient for therapy Patient Identified By: Name, ID Band and Date Diagnosis: seizure (02/26/23931) Status of treatment: Evaluation completed (02/26/23931) Orders: PT evaluation and treatment;OOB (02/26/23931) Weight Bearing Status: Weight bearing as tolerated (02/26/23931) Precautions: Alarms;Falls;Safety (02/26/23931) Total Treatment Time--free text: (02/26/23931) Past Medical History: Past Medical History: Diagnosis Date BPH (benign prostatic hyperplasia) Chronic neck pain Convulsions (HCC) 04/26 Dyslipidemia, goal to be determined F/u for non Q wave myocardial infarction 04/26 90% RCA, 90% LCx, both PTCA/Stent by Trimble Generalized osteoarthritis GERD (gastroesophageal reflux disease) Major depression, single episode Prostatitis, acute 2011 PUD (peptic ulcer disease) 2018 ruptured ulcer - needed clipped Tobacco use disorder Past Surgical History: Past Surgical History: Procedure Laterality Date CAROTID (INTERNAL) ARTERY CATHETHER PLACEMENT Bilateral 02/24/2023 CATHETER PLACEMENT INTERNAL CAROTID ARTERY performed by Bennett Quevedo MD at OR [facility] REVISE LUMBAR SPINE, ANTERIOR 1974 VERTEBRAL ARTERY CATHETER PLACEMENT Right 02/24/2023 CATHETER PLACEMENT VERTEBRAL ARTERY, performed by Bennett Quevedo MD at OR [facility] Subjective: Pt awake in bed, agreeable to PT. Friend present at bedside. Social History/Disposition Lives with: Friend ("my girl") (02/26/23931) Assistance available: Yes (02/26/23931) Dwelling type: Single story home (02/26/23931) Entry steps: 3 (02/26/23931) Inside steps: None (02/26/23931) Bedroom location: 1st floor (02/26/23931) Bath location: 1st floor full bath (02/26/23931) Prior Level of Function Reported by: Patient (02/26/23931) Ambulation: Ambulatory without device (02/26/23931) Devices at home: Rolling walker;Straight cane;Bedside commode;Shower chair (02/26/23931) Observations Consciousness: Alert (02/26/23931) Orientation: Person;Place (but not time) (02/26/23931) Psychosocial: Patient can communicate basic needs;Patient can converse in a social setting (02/26/23931) Other Findings: Yes (02/26/23931) Findings: Light touch sensation (02/26/23931) Light Touch Sensation Results: Intact;LLE;RLE (02/26/23931) Sitting Posture: Forward head;Rounded shoulders (02/26/23931) Standing Posture: Forward head;Rounded shoulders (02/26/23931) Pain: Patient has complaints of pain. Pain located in lower back, 5/10, nursing aware. Range of Motion Range of Motion: WFL (02/26/23931) Strength Assessment Strength Assessment: Deficits noted (02/26/23931) WNL, except: LLE;RLE (02/26/23931) LLE: Hip;Knee;Ankle;4-/5 (02/26/23931) RLE: Hip;2-/5;Knee;2/5;Ankle (PF 3+/5, DF 1/5) (02/26/23931) P.T. Bed Mobility Supine-Sit: Contact Guard (02/26/23931) Transfers Sit-Stand: Minimal Assistance (from bed and chair, modA from toilet) (02/26/23931) Stand-Sit: Minimal Assistance (02/26/23931) Ambulation: 10 ft + 10 ft with no assistive device, hand held assist x2, Anshul x2 40 ft with rolling walker and Anshul Balance Sit (Static): Fair (02/26/23931) Sit (Dynamic): Fair (-) (02/26/23931) Stand (Static): Fair (- to poor+) (02/26/23931) Stand (Dynamic): Poor (+ to poor) (02/26/23931) Patient and or Family Goal(s): to get well and to return home Patient Education Review of Precautions: Safety;Fall (role of PT) (02/26/23931) Safety Awareness: Patient verbalizes insight of current deficits;Patient can communicate basic needs (02/26/23931) Preferred learning method: Combination (02/26/23931) Barriers to learning: Medical Status (02/26/23931) Method of Education: Verbalized to patient;Patient demonstrated task (02/26/23931) Topic of Education: Safety with mobility, Goals/plan of care, Use of assistive device and Fall prevention Method of Education: Verbal discussion and explanation provided to pt: verbalized understanding andor agreement of this information and demonstrated the exercise and or task Treatment Provided: Gait Training 10 minutes: gait training with rolling walker Evaluation Moderate Complexity 13 minutes - [id number]: Patient was cooperative and pleasant during treatment session. Moderate complexity evaluation performed and 1-2 personal factors or comorbidities were identified that will impact plan of care, including cardiac history and medical status. Patient presents with limitations in strength, bed mobility, transfers, gait, elevations, balance, endurance and safety, which will impact plan of care. These limitations will be addressed by the goals set forthis patient. Alarm Status Patient positioned in: Chair (02/26/23931) With: Pressure pad alarm intact and functioning and call grullon in reach (02/26/23931) Treatment Status: Treatment at bedside (02/26/23931) Goals: Demonstrate Bed Mobility with: modified independent Demonstrate Sit to/from Stand and/or Stand Pivot Transfers with: supervision Demonstrate Ambulation: supervision, least restrictive AD, 150 ft Demonstrate Stairclimbing: supervision, 3 steps Increase Strength of: B/L LE by 1/2-1 muscle grade Increase Balance: dynamic standing balance to fair Increase Safety: of functional mobility Time Frame: 9-10 visits Assessment: Pt is 82 year old male presenting with seizure. Pt seen on this date for initial evaluation. Pt reports 5/10 pain in lower back, nursing aware. Prior to admission, pt reports living in 1-story house (3 steps to enter) with "my girl" who is able to assist if needed. Pt reports ambulatingwith no assistive device at baseline. During session, pt was cooperative. Upon initial evaluation, pt was able to perform bed mobility with contact guard, sit to stand transfers with Anshul from bed and modA from toilet, and ambulated 10 ft + 10 ft to/from toilet with Anshul x2 and handheld assist x2. Following evaluation, pt agreeable to gait training with rolling walker. Pt performed sit to stand transfer from chair with Anshul and ambulated 40 ft with Anshul and rolling walker. Following session, ptpositioned in chair with alarm and call grullon in reach. Cord not plugged into call grullon system, as this is not available in [facility]. FERNANDA Barros is aware. Pt presents with deficits in strength, endurance,mobility, ambulation, and balance, all of which are currently negatively impacting pt's quality of l adam. Pt would continue to benefit from skilled PT services while inpatient at hospital to reach established goals and address deficits. Pt is not safe to return home due to current functional mobility status. Please consider post- acute care services which may include home health, [place] [facility] [place], outpatient therapy or inpatient rehabilitation. The level of care will be determined in collaborationwith patient, family/caregiver and care team members. All needs met. Deficits requiring P.T. treatment needs: Safety;Mobility;Balance;Weakness;Endurance;Lower extremitystrength (02/26/23931) Equipment Needs: Equipment needs: (TBD) (02/26/23931) Treatment Plan: Bed mobility training, Transfer training, Gait training, Elevation training, Strengthening exercises: B/L LE, Balance activities and Educate on safety with functional mobility Anticipated Frequency (on eval): 3 to 5 times per week (02/26/23 0932) AM PAC Score with Stairs: 15 A portion of this AM-PAC assessment not scored based on functional assessment; rather clinical decision making utilized based on current findings and/or prior level of function. Please refer to future AM-PAC calculations of functional ability as they become available. * Karlene Hurley, CCC-INFORMATION SYSTEMS PROFESSOR - 02/25/2023 9:10 AM EDTAssociated Order(s): ADULT SPEECH THERAPY CONSULT IP (ACUTE CARE REHAB) CLINICAL BEDSIDE SWALLOW EVALUATION - Speech-Language Pathology [address] [address] Name: James Ibarra Location: [id number] Date: 02/25/2023 Time: 9:11 AM Patient Status: Inpatient Insurance: Payor: [employer] [facility] ([employer]) MEDICARE ADVANTAGE / Plan: e-contratos PPO / Product Type: *No Product type* / GENERAL INFORMATION: Admission Date: 02/22/2023 Referring Physician: Nicol Pertinent Medical History: Per EPIC chart review the pt is an "82 year old, male transferred here for symptomatic carotid stenosis. Patient is a poor historian and says "his girl knows what's going on". He was admitted to [facility] for worsening neck pain and then prior to d/c had a seizure. He has a hxof seizures and last one prior to this one was 2001; takes tegretol. He was also hypotensive and und erwent CTA showing bilateral carotid artery stenosis. He was transferred here as he did not go backto baseline with his mentation. He has been on LTM and is to get an MRI although has a pacer. Today, he says he cannot move his right leg well, where yesterday he could. He smokes a handful of cigarsa day and uses 3L of oxygen, no ETOH. His neck pain is improved, no numbness/tingling anywhere. Denies speech/vision/hearing/sensory issues. +rod noted" Past Medical History: Diagnosis Date BPH (benign prostatic hyperplasia) Chronic neck pain Convulsions (HCC) 04/26 Dyslipidemia, goal to be determined F/u for non Q wave myocardial infarction 04/26 90% RCA, 90% LCx, both PTCA/Stent by Trimble Generalized osteoarthritis GERD (gastroesophageal reflux disease) Major depression, single episode Prostatitis, acute 2011 PUD (peptic ulcer disease) 2018 ruptured ulcer - needed clipped Tobacco use disorder Past Surgical History: Procedure Laterality Date REVISE LUMBAR SPINE, ANTERIOR 1973 Current Diet/Dysphagia History: NPO except medication passed Nursing Bedside Dysphagia Screening -Pt was evaluated while at [facility] 02/20/23 and recommended to be NPO Cognitive-Communication: Pt was alert, followed commands for the completion of the OME and he expressed his overall wants/needs appropriately w/some confusion noted Barriers to Learning: Medical Status Hearing Acuity: Deferred Best Learning Method: Auditory Pain: No complaints of pain ORAL MECHANISM EXAM: Facial Symmetry Within functional limits Labial Function Within functional limits Lingual Function Within functional limits Velar Function Did not test Dentition: Edentulous (lower plate was at the bedside but did not place for the completion of the assessment) Pt reports he can eat steak w/o his dentures in place PROTECTIVE MECHANISMS: Volitional Swallow Did not elicit Volitional Throat Clearing Did not test Volitional Cough Did not test Vocal Quality Inspiratory wheeze (per nurse pt refused respiratory treatment earlier) Tracheostomy Tube: Not Present Ventilator Status: Not Applicable SWALLOWING FUNCTION: ORAL PREPARATION PHASE: Puree (IDDSI Level 4): Within functional limits (WFL) Minced and Moist (IDDSI Level 5): WFL Soft and Bite-Sized (IDDSI Level 6): Decreased Mastication Thin Liquid (IDDSI Level 0): WFL ORAL PHASE: Puree (IDDSI Level 4): WFL Minced and Moist (IDDSI Level 5): Increased Oral Transit Time (Greater than 1 sec) and Oral Residueafter Swallow Soft and Bite-Sized (IDDSI Level 6): Increased Oral Transit Time (Greater than 1 sec) and Oral Residue after Swallow Thin Liquid (IDDSI Level 0): WFL PHARYNGEAL PHASE Puree (IDDSI Level 4): WFL Minced and Moist (IDDSI Level 5): Pt spit out trials Soft and Bite-Sized (IDDSI Level 6): Pt spit out trials Thin Liquid (IDDSI Level 0): WFL RECOMMENDATIONS/PLAN: Videofluoroscopy: Not indicated Diet Level: Puree Liquid Level: Thin Presentation of Medication: As tolerated Positioning: Seated with 90 degree hip flexion Level of Supervision: total assistance Use of Straws: not allowed Compensatory Techniques to be Utilized During PO Intake: Small Bites/Sips, Alternate Solids & Liquids and Slow Rate of Intake ANTICIPATED FREQUENCY (ON EVAL): 1-3 times per week DIAGNOSIS/IMPRESSIONS: Diagnosis/Impressions: Mild-moderate oral phase dysphagia. Pt decreased mastication, bolus formulation and transfer of thechewable solids resulting in the pt expectorating trials out of the oral cavity No pharyngeal phase dysphagia is suspected as no overt s/s aspiration/penetration were observed on all consistencies presented. Rehab Potential: Fair TREATMENT PLAN: Swallowing Treatment: Indicated Treatment Goals: Patient will consume least restricitive diet without signs/symptoms of aspiration Additional Recommendations: Monitor his cognitive status for appropriateness of PO intake The above information was discussed with the patient/family. Yes The patient/family was in Agreement, comprehension questionable secondary to his current medical dx. * ROSA ELENA Henderson - 02/24/2023 3:49 PM EDTAssociated Order(s): CARE MANAGEMENT CONSULT IP SW attempted to see pt on this date to complete assessment. Pt in OR for angiogram and then transferred to ICU for close monitoring. Care Management will continue to follow and complete assessment when appropriate. * Benson James MD - 02/24/2023 11:51 AM EDTAssociated Order(s): CARDIOLOGY CONSULT IP CONSULT - Cardiology [facility]-[address] [id number] Name: James Ibarra Location: [facility] A436/A Date: 02/24/2023 Time: 11:51 AM REQUESTING SERVICE: Anesthesia REASON FOR CONSULT: "ST segment changes noted with jaw pain, associated with hypotension after intracranial intravascular vasodilation therapy." PRESENTING PROBLEM: James Ibarra [facility] is seen in consultation for abnormal EKG. 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 Patient was found to have bilateral carotid artery stenosis (L>R). Neurosurgery was consulted and patient underwent DSA this morning. Unfortunately, during the procedure, after he was given verapamil and nitroglycerin, patient became hypotensive Per report, he had "ST segment changes noted with jaw pain, associated with hypotension after intracranial intravascular vasodilation therapy." I discussed with the anesthesiologist who states that ST changes were noted on telemetry (however no strips are available at this time since they were intra- op). His EKG obtained was unchanged from prior- HR 81 A-sensed, V paced with repolarization changes. He was given phenylephrine pushes and started on levophed gtt and transferred to the ICU. Patient is an extremely poor historian. He is oriented with prompted, but frequently needs to be re-directed and is distracted. He reports that he is currently having right sided jaw pain (which he states is different from the neck pain that brought him to the hospital). He reports that he has beenSOB for a few weeks now. He denies any chest pain. His significant other is at bedside and states that at baseline he is ambulatory with a walker. He does not normally complain of chest pain with exertion. For the last few weeks, he has been having SOB both with exertion and at rest and has been wearing his nocturnal oxygen during the day. 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 90% RCA, 90% LCx, both PTCA/Stent by [place] Generalized osteoarthritis GERD (gastroesophageal reflux disease) Major depression, single episode Prostatitis, acute 2011 PUD (peptic ulcer disease) 2017 ruptured ulcer - needed clipped Tobacco use disorder PAST SURGICAL HISTORY: Past Surgical History: Procedure Laterality Date REVISE LUMBAR SPINE, ANTERIOR 1974 FAMILY HISTORY: Family History Problem Relation Age of Onset Lung Disorder Mother Heart Disorder Brother Valvular d/o, TAA Heart Disorder Brother Arrhythmia Heart Disorder Sister [place] in 40's SOCIAL HISTORY: Social History Tobacco Use Smoking status: Every Day Packs/day: 1.50 Years: 40.00 Pack years: 60.00 Types: Cigarettes Smokeless tobacco: Never Tobacco comments: Now down to 1/2 pack/day of small cigars Vaping Use Vaping Use: Never used Substance Use Topics Alcohol use: Not Currently Comment: occas. Drug use: Never ALLERGIES: Tiotropium ROS: As per HPI, otherwise reviewed and negative. PHYSICAL EXAMINATION: Most Recent Vital Signs: BP: 103 mmHg/60 mmHg (02/24/23 1130) Pulse: 98 (02/24/23853) Temp: 36.06 C (02/24/23 1130) Resp: 30 (02/24/23853) SpO2: 97 % (02/24/23853) Vital Signs Last 24 Hours: Systolic BP: Most Recent Systolic BP Av.4 mmHg Min: 103 mmHg Max: 154 mmHg Temperature: Most Recent Temperature Av.3 C Min: 36.06 C Max: 36.78 C Pulse: Pulse Av.5 Min: 67 Max: 98 Respirations: Resp Av.9 Min: 20 Max: 30 SpO2: SpO2 Av.2 % Min: 95 % Max: 99 % General: Patient Is a chronically ill-appearing cachectic male lying in bed in no acute distress HEENT: normocephalic; Conjunctiva clear; no scleral icterus or injection; mucous membranes dry; No JVD Heart: Regular Rate and rhythm no murmurs, rubs or gallops. Pulmonary: Lungs clear to auscultation bilaterally; no wheezes, rhonchi or crackles. Abdomen: Soft, non-tender, non-distended. MSK: Gross motor function intact Extremities: No clubbing, erythema, cyanosis or edema. Skin: [place], warm, no wounds or lesions present. +significant skin turgor Neuro: AAOx3. No gross motor or sensory deficits. Psych: Appropriate mood and affect; good insight and judgment. LABS: Labs reviewed as indicated below: 02/23/23 07:27 02/23/23 14:02 02/24/23 06:35 Triglycerides 97 Cholesterol 157 Non-HDL Cholesterol 92 HDL Cholesterol 65 LDL Cholesterol 73 Sodium 138 139 Potassium 3.8 3.8 Chloride 103 104 CO2 28 27 BUN 15 15 Creatinine 0.6 0.6 Estimated Glomerular Filtration Rate >90 >90 Anion Gap 7 8 Glucose 86 100 Calcium 8.7 8.8 Estimated Average Glucose 114 ASPIRIN, VERIFYNOW Rpt VerifyNow Aspirin 592 P2Y12 INHIBITOR REACTIVITY (CLOPIDOGREL), VERIFYNOW Rpt ! VerifyNow P2Y12 82 (L) Hemoglobin A1C 5.6 CBC Rpt ! Rpt ! WBC 6.80 7.62 HGB 10.4 (L) 10.3 (L) HCT 32.3 (L) 30.5 (L) MCV 103.9 100.3 PLT 314 334 Echo: 02/15/2022 1. This study is Fair at best and very thin body habitus with predominate ribs. 2. Grossly normal global function of the left ventricle. 3. LV ejection fraction is 60 - 65%. 4. No left ventricular regional wall motion abnormalities. 5. Normal right ventricular size and systolic function. 6. No pericardial effusion is seen. Cardiac cath 05/17/2002: 90% pRCA stenosis s/p PCI. pLCX 80% stenosis. D2 40% stenosis at ostium. IMPRESSION and PLAN: #iatrogenic hypotension #dehydration #type II AK #carotid artery stenosis #known CAD #chronic HFpEF #PAF (not on AC 2/2 bleeding Patient had a Hypotensive episode in the OR in response to receiving verapamil and nitroglycerin. He is known underlying coronary artery disease and it is not surprising that in the setting of a systolic blood pressure in the 40s that he has some degree of demand ischemia. He has no EKG changes andhis troponin is only mildly elevated. 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 James, attending physician STAFF CHARITY FUNDRAISER I saw and evaluated the patient today. I have reviewed the trainee note and agree. This man weighs 96 lbs. He was given concomitant doses of two vasodilating agents which led to severe hypotension. He does not have evidence for an acute coronary syndrome but rather demand ischemia. He is currently awake, breathing without distress and having no chest discomfort. His echocardiogram was being done while I was at the bedside. He has aortic sclerosis without stenosis. LV systolic function appears normal on limited images which I viewed while in the process of completing the study. Troponin T level not elevated beyond prior baseline. Concur that in the postabsorptive/ dehydrated state, that particular medication regimen should be avoided or attenuated in this patient. * Nikky Don, FRANSISCO - 02/24/2023 10:00 AM EDT CLINICAL NUTRITION CONSULT NOTE [address] [address] Name: James Ibarra Location: [facility] A436/A Date: 02/24/2023 Time: 2:04 PM How patient was identified (select 2): Medical record number and Name Discussed in interdisciplinary rounds: No James Ibarra is a 82 year old male being seen for reduced dietary intake, emaciated/cachectic appearance and significant unintentional weight loss Primary Diagnosis: 82 year old male was admitted on 02/22/2023 and presents with seizure activity. S/p DSA on 02/24/2023. Other pertinent information: The patient was off the unit in the OR this morning. Per the nursing nutrition screening tool, the patient reported having weight loss and a reduced appetite prior to admission. While at [facility], he reported to the dietitian that he was drinking boost supplements BID at home, but consuming less than 75% at mealtimes for over one month. Over the last six months, the patient has experienced a 15% weight loss. NUTRITION ASSESSMENT: Past medical/surgical history and medications reviewed. Food/Nutrition-Related History Nutrition Support: N/A Diet: NPO Previously followed diet: Regular Food Allergies/Intolerances: None. Adult Energy Intake: Less than 75% of estimated energy requirement for greater than 1 month (moderate/severe, chronic illness). Percentage of meal intake: N/A Oral Nutrition Supplement (ONS): Supplement Shake (1/2 cup provides 200 calories, 6 grams protein, 34 grams carbohydrate) -TID Pertinent medications/vitamins/minerals/supplements: Isolyte infusion, Colace, Pepcid, Folic Acid, Remeron, Deltasone. Pertinent Biochemical Data: Labs Reviewed. There are no biochemical abnormalities requiring a change in the nutrition plan of care. Nutrition-Focused Physical Findings: Appearance: Cachectic, Thin -Per the documentation at [facility]. Respiratory support: LFNC Nasal/Oral: Dentition: Partial Upper denture, no lower dentition Digestive: Appetite poor Last Bowel Movement: 02/23/23 (02/24/23 0900) Cognition: Confusion reported at times. Skin: Suspected pressure injury at bony prominence, location sacrum- wound ostomy consult is pending. Skin tear, location L wrist Enteral access: N/A Nutrition Focused Physical Exam: NFPE completed on 02/21/23- at [facility]. Subcutaneous Fat Loss: Orbital fat pads: Severe Buccal fat: Severe Tricep: Severe Rib: Severe Muscle Loss: Temples: Severe Clavicles: Severe Shoulders: Severe Scapula: Severe Interosseous: Severe Quadriceps: Severe Calves: Severe Anthropometrics Measurements Height: 170.2 cm (5' 7") (02/22/23 133) Admission weight: 43.5 kg Weight: 43.5 kg (96 lb) (02/22/23 133) BMI: 15.03 (02/22/231329) Usual Body Weight: 52 kg [place] weight: 55.2 kg [place] Weight Based on BMI: 18.5 Adjusted ideal weight: N/A Interpretation of Weight Change:Greater than 10% weight loss in 6 months (Severe) Weight Comment: 15% weight loss over 6 months. Nutrition Prescription: Energy needs: 35-40 Kcal/kg Kcal/day: 8513-9075 Based on admission weight Protein needs: 1.2-2.0 gm/kg Protein: 53-88 Based on admission weight Fluid needs: 1 ml/1 kcal ml/kg Fluid: 5620-5347 ml/day Based on admission weight Malnutrition: Malnutrition Present: Yes (02/24/231411) Adult Malnutrition Classification: Severe (02/24/231411) Malnutrition Characteristics: Fat loss;Muscle loss;Inadequate energy intake;Weight loss (02/24/231411) Malnutrition Care Plan: Patient meets ASPEN/AND criteria for severe malnutrition. Plan to meet 50% of estimated calorie and 50% of estimated protein requirements via therapeutic diet and a nutrition intervention of oral nutrition supplements. If patient unable to achieve estimatedrequirements over next 3-5 days, will need to consider enteral nutrition. Dietitian Action: Monitored NPO/clear liquid status;Oral nutritional supplement ordered/adjusted (02/24/23 1414) NUTRITION DIAGNOSIS: Malnutrition severe related to chronic illness as evidenced by patient consuming less than 75% of estimated energy requirements x 1 month, greater than 10% weight loss x 6 month, severe fat loss and severe muscle loss. Goals: Patient to consume greater than 50 % of daily meals and 50% of daily supplements within 3-5 days.- once the patient's diet is advanced. NUTRITION INTERVENTION/PLAN: Will order Boost Plus (360 Kcal and 14 gm protein per 237 mL) *-TID once the patient's diet is advanced. Clinical Nutrition Recommendations: Diet: Advance diet when clinically feasible NUTRITION MONITORING AND EVALUATION: NPO status/diet advancement and tolerance Lab values warranting change with MNT Weight for trends Plan follow-up: Will follow and adjust nutrition plan of care as medical condition requires. Please contact for change(s) in patient condition requiring earlier intervention. Nikky Don RDN, LDN Registered Dietitian [phone] Available via path intelligence documented in this encounter Nursing Notes * Soto Nicholas RN - 03/01/2023 2:17 PM EDT NURSING DISCHARGE PROGRESS NOTE [address] [address] Name: James Ibarra Location: [facility] A436/A Date: 03/01/2023 Time: 2:17 PM The nursing measures listed below are those which were carried out while the patient was at the facility noted above and are not to be interpreted as physician orders for extended care. ACCOMPANIED BY: spouse DESTINATION: home DISCHARGE NURSE: Soto Nicholas RN Height: Height: 170.2 cm (5' 7") (02/22/23 1330) Weight: Weight: 49.7 kg (109 lb 9.1 oz) (03/01/23 0800) Most Recent Vital Signs: BP: 113 mmHg/60 mmHg (03/01/23 1300) Pulse: 88 (03/01/23 1300) Temp: 36.5 C (03/01/23 1200) Resp: 28 (03/01/23 1300) SpO2: 100 % (03/01/231299) PAIN LEVEL AT DISCHARGE: Level of Pain: 0/10 Pain Scale Type: [facility] Scale 0-10 Type of Pain: other - na Location: na Na Radiation: na Intervention: repositioned for comfort Instructions for Pain Management Post Discharge Given: yes BELONGINGS PRESENT ON DISCHARGE: Patient Belongings at Bedside Belongings at Bedside: Dentures (02/22/231329) Dentures: Uppers (02/22/231329) I verified that all belongings were present at discharge. (Nurse initials - ab) Medications Brought by Patient?: No (02/22/231329) I verified that all remaining home medications were returned to patient at discharge. (Nurse initials - ab) HARD COPY OF NARCOTIC PRESCRIPTION SIGNED AND PROVIDED TO PATIENT UPON HOSPITAL DISCHARGE: N/A READMISSION RISK (SCORE): Readmission Risk Score: 28.98 (03/01/231199) RESTRAINTS THIS HOSPITALIZATION: no BEHAVIORAL CONCERNS: none IMMUNIZATIONS GIVEN THIS ADMISSION: none NEUROLOGICAL [place] Coma Scale: Best Verbal Response: Verbally appropriate for age (03/01/23 1300) Best Motor Response: Obeys commands appropriate for age (03/01/23 1300) Coma Score: 15 (03/01/231299) Extremity Movement: RLE Motor Strength: 4-Active movement with some resistance (03/01/23 1200) RUE Motor Strength: 5-Active movement with full resistance (03/01/23 1200) LLE Motor Strength: 4-Active movement with some resistance (03/01/23 1200) LUE Motor Strength: 5-Active movement with full resistance (03/01/23 1200) Pupil Size/Reaction: SEIZURE PRECAUTIONS: no SENSORY DEFICITS: no SPEECH, HEARING, VISION PROBLEMS: Are you deaf or do you have serious difficulty hearing?: No (02/22/231329) Are you blind or do you have serious difficulty seeing, even when wearing glasses?: No (02/22/231329) Is patient non-verbal or have difficulty speaking? no LANGUAGE BARRIER: no FEEDING: independent ORAL HYGIENE: brushes own teeth Functional [place] Measure (must be completed for all patients on discharge): Feedin = complete independence Locomotion: 3 = independence with device Expression: 4 = complete independence Transfer Mobility/Ambulation Status: 3 = independence with device Social Interaction: 4 = complete independence Dressin = modified dependence Hygiene: 2 = modified dependence RESPIRATORY: Discharged with Oxygen: no Ventilator: no Trach/Date of Trach: no CARDIOVASCULAR: (Cardiovascular WNL = Rhythm regular, normal rate per age, normal heart sounds (not accentuated, diminished or split,) no edema, brisk capillary refill, pulses present, no murmur.) Observation WNL = Observation WNL: WNL except for items charted below (03/01/23 1200) P = palpable D = doppler Carotid Brachial Radial Femoral Dorsalis Pedis Posterior Tibial Popliteal Right +2 +1+1 Left +2 +1 Intravenous Lines: other - na INTEGUMENTARY: Integumentary Observations: skin tear - left wrist, right arm, sacral stage II, scattered ecchymotic regions, Wound(s): left wrist, right arm, sacral stage II, scattered ecchymotic regions, MUSCULOSKELETAL: Equipment needs: (TBD) (02/26/23 0932) Prosthetic(s): no GI ELIMINATION: (GI WNL = Abdomen flat, soft, no tenderness, symmetrical. Normal active bowel sounds present in all4 quadrants.) Observation WNL: Observation WNL: WNL except for items charted below (03/01/23 1200) Last Bowel Movement: 02/28/23 (03/01/23 0800) Ostomy Present: no ELIMINATION: ( WNL = Genitalia intact without discharge, swelling or pain. Urine clear and pale yellow, no foul smell. Continence appropriate for age. No bladder distention - absence of urinary devices - no hemo or peritoneal dialysis.) Observation WNL: Observational WNL: WNL except for items charted below (03/01/23 0800) Ostomy Present: no REPRODUCTIVE: Reproductive/Sexual Concerns: no Drainage: na COPING: Family/Community Support Systems in Place: Yes, Emergency Contact Name: Emergency Contact Number: Spouse at home for support, as well as home health nursing and PT Discharge Checklist: Discharge Instructions - Initials: ab Prescriptions for Controlled Substances: N/A - Initials: ab Home Medications Returned: N/A - Initials: ab POLST Form (if applicable): no - Initials: ab All IV Fluid sites have been discontinued: yes, date - 03/01/23 - Initials: ab Lines/Drains/Airways (LDAs) have been completed in flowsheet rows: yes, date - 03/01/23 - Initials: ab * Yusra Raymond RN - 02/27/2023 12:37 PM EDT [facility] RN note Name: James Ibarra Date: 02/27/2023 Time: 12:37 PM Location: OR [facility] Date of Service: 02/27/2023 Patient arrived at 1219 to [facility] OR for a Carotid Stenosis treatment. Patient ID band checked using two identifiers. Patient placed supine on procedure table with comfort measures intact; bilateral arm boards and safety strap in place. Hemodynamic monitoring placed with anesthesia staff remaining at bedside for direct care. Distal pulses non-palpable. RT staff prepares and preps for procedure. Anesthesia: Monitored Anesthesia Care (MAC) Procedure by physician. 1247: 1 ml 1% buffered lidocaine injected. 1248: Wrist puncture. Access obtained on right. 7 Fr sheath placed. 1249: Radial cocktail given (100 mcg nitroglycerin, 2000 units heparin) 1253: 2.5 mg verapamil given Catheter positioning under fluoroscopy. Angiogram in progress. 1414: Radial sheath pulled and vasc band inflated with 10cc. 1410: 3 ml 1% buffered lidocaine injected in right groin 1418: Right groin puncture. Access obtained on right. 6 Fr sheath placed. Catheter positioning under fluoroscopy. Angiogram in progress. Interventional details: 1435: Guide catheter placement 1440: 5mm Spyder placed 1445: Balloon inflated and deflated 1446: Balloon inflated and deflated 1450: 7mm x 40mm, 135cm Rapid Exchange, Precise Pro RX Carotid Stent placed 1453: Balloon inflated and deflated 1455: Balloon inflated and deflated 1500: Treatment complete Imaging finished. Catheters removed. 1500 manual compression placed. Sheath removed and manual pressure to site. Procedure ends. 1533 Hemostasis obtained. Area cleaned. Gauze and Tegaderm dressing applied. Distal pulse unchanged. Patient tolerated well. Reported by RT: Total contrast used: 84 ml DAP plane A: 0.08 Gy DAP plane B: 0.02 Gy Fluoro time plane A: 82.3 minutes Fluoro time plane B: 50.3 minutes Reported as per physician, please see operative note for details: Quality Outcomes Database Casetype: Carotid Stenosis For Carotid Stenosis Pre-operative NIH Stroke Scale (NIHSS ) NIH Stroke Scale available, score = 1 Symptomatic?YES If yes, Type of Presenting Symptom (select one of the following, delete the others) Minor stroke (< 4 NIHSS) - neurologic deficit lasting >24hrs or confirmed on MRI imaging Side of carotid stenosis: left Percent stenosis, using NASCET criteria, on right: <50% Percent stenosis, using NASCET criteria, on left: >95% History and side of previous carotid artery stenting (SHELBY): NO History and side of previous carotid endarterectomy (CEA) NO Side of Current Procedure: left Stenosis Characteristics (check all that apply) yes Concentric calcification No Multiple OR tandem stenosis Yes Stenosis above C3 No Stenosis below C6 No Presence of contralateral occlusion [place] of [place] incomplete? NO Imaging tests used to evaluate vessel (check all that apply) CT angiography (CTA) Conventional angiography Irregular or ulcerated plaque YES Intraluminal thrombus NO Procedure performed (check only one from last 3 choices) Carotid artery stenting with or without angioplasty Number of days between presenting event and intervention: 6 Distal embolic protection YES Proximal embolic protection NO Implants: * No implants in log * * Misael Perez RN - 02/24/2023 9:38 AM EDT Dual Licensed Skin Assessment completed by Katie MICHAEL and Yara MICHAEL. The patient is/has a N/A Skin Breakdown (includes non blanchable erythema): Yes. Wound Type: Suspected pressure injury at bony prominence, location Sacrum/coccyx Wound Ostomy Nurse Notified: Yes - notified via wound care protocol Nursing interventions: Allevyn * Anette Rocha RN - 02/24/2023 9:23 AM EDT [facility] RN note Name: James Ibarra Date: 02/24/2023 Time: 9:23 AM Location: OR [facility] Date of Service: 02/24/2023 Patient arrived at 0954 to [facility] OR 26 for a Diagnostic cerebral angiogram. Patient ID band checked using two identifiers. Patient placed supine on procedure table with comfort measures intact; bilateral arm boards and safety strap in place. Hemodynamic monitoring placed with anesthesia staff remaining at bedside for direct care. Distal pulses non-palpable and Surgeon aware. RT staff prepares and preps for procedure. Anesthesia: Monitored Anesthesia Care (MAC) Procedure by physician. 1 ml 1% buffered lidocaine injected. 1014 Wrist puncture. Access obtained on right. 5 Fr sheath placed. Catheter positioning under fluoroscopy. Angiogram in progress. Imaging finished. Catheters removed. 10:38 AM Sheath removed and VASCband applied to site. Procedure ends. Distal pulse unchanged. Patient tolerated well. Reported by RT: Total contrast used: 43 ml DAP plane A: 0.03 Gy DAP plane B: 0.01 Gy Fluoro time plane A: 4.3 minutes Fluoro time plane B: 1.2 minutes Reported as per physician, please see operative note for details: Implants: * No implants in log * * Mamta Gee RN - 02/24/2023 8:04 AM EDT IP TO PERIOP HANDOFF COMMUNICATION NOTE [facility] [place] [address] Name: James Ibarra AGE: [age] year old Location: [facility] [id number] Date: 02/24/2023 Attention to: Pre-op nurse Report from: Mamta Gee RN Patient arriving via: Bed Time of Call: 8:05 AM Phone Ext.: [phone] Reason for SBAR handoff: OR Consent: Emotional/Personal Events & Special Needs: N/A Allergies: Tiotropium PMH: Past Medical History: Diagnosis Date BPH (benign prostatic hyperplasia) Chronic neck pain Convulsions (HCC) 04/26 Dyslipidemia, goal to be determined F/u for non Q wave myocardial infarction 04/26 90% RCA, 90% LCx, both PTCA/Stent by [facility] Generalized osteoarthritis GERD (gastroesophageal reflux disease) Major depression, single episode Prostatitis, acute 2011 PUD (peptic ulcer disease) 2018 ruptured ulcer - needed clipped Tobacco use disorder PSH: Past Surgical History: Procedure Laterality Date REVISE LUMBAR SPINE, ANTERIOR 1973 Isolation: N/A Situation/Background Admission Date: 02/22/2023 Patient Service: Neurology - Stroke Attending: Barber Bustamante MD Level of Care: Med Surg [3] Assessment Vital Signs: BP: 154/75 (02/24/23599) Temp: 36.2 C (97.2 F) (02/24/23599) Pulse: 67 (02/24/23599) Resp: 20 (02/24/23599) SpO2: 96 % (02/24/23599) O2 flow rate: 0 L/MIN (02/24/23599) Lines: Urethral Catheter Regular catheter (Active) Number of days: 3 Peripheral Line Right;Median 22 Gauge (Active) Number of days: 4 Restraints: No orders of the defined types were placed in this encounter. Labs: Please see Lab Flowsheet for lab values. Lab Comments: N/A Diet: Orders Placed This Encounter Procedures NPO After 2400 Except Meds NPO: Additional Diet Information: N/a Intake and Output: Intake/Output Summary (Last 24 hours) at 02/24/2023 0804 Last data filed at 02/24/2023 0556 Gross per 24 hour Intake 590 ml Output 900 ml Net -310 ml Belongings Remaining with Patient: n/a What were AM meds taken with: sips of water Time of last pain medication: N/A Med: N/A Time of last antibiotic: N/A Med: N/A Time of last skin assessment: 2006 on 02/23 Pressure injuries or areas of concern: coccyx/sacrum Neurological: Neuro WNL: X - Exceptions to WNL (no change from previous assessment) (02/24/23 030) Speech: Clear (02/23/232006) Level of Consciousness: Alert (02/23/232006) RUE Motor Strength: 5-Active movement with full resistance (02/23/232006) RLE Motor Strength: 4-Active movement with some resistance (02/23/232006) LUE Motor Strength: 5-Active movement with full resistance (02/23/232006) LLE Motor Strength: 3-Active movement against gravity (02/23/232006) Coma Score: 15 (02/24/23 0300) Respiratory: Respiratory WNL: X- Exceptions to WNL (02/23/232110) Cough: None (02/23/232110) Depth/Rhythm: Regular (02/23/232006) Dyspnea Occurance: None (02/24/23612) Effort: Unlabored (02/24/23612) Effort Characteristics: Accessory Muscle Use;Abdominal Muscle Use (02/23/232110) Oxygen therapy/ Mechanical vent O2 flow rate: 0 L/MIN (02/24/23599) Supplemental O2 Delivery: Room Air, None (02/24/23612) O2 Device Skin Integrity : Skin unaffected (02/22/23 1330) Cardiac: Observation WNL: WNL except for items charted below (no change from previous assessment) (02/24/23 030) Heart Sounds: S1;S2 (02/23/232006) Pulses Right: Dorsalis Pedis +;Radial +;Palpable (02/23/232006) Pulses Left: Dorsalis Pedis +;Radial +;Palpable (02/23/232006) Edema: No (02/23/232006) Capillary Refill: 3 sec (02/23/232006) GI: Observation WNL: Yes (02/23/232006) Abdomen: Soft;Non-distended;Non-tender (02/23/232006) Bowel Sounds: All Quadrants;Present (02/23/232006) : Observational WNL: WNL except for items charted below (02/23/232006) Urine Description: Yellow;Clear (02/23/232006) Integumentary: Observation WNL: WNL except for items charted below (02/23/232006) Skin Description: Dry;Warm (02/23/232006) Skin Color: Flesh Tone;Mucus Membranes [place];Nail beds pink (02/23/232006) Skin Lesion: Other - Describe;Ecchymosis (scattered scabs) (02/23/232006) Environment / Interventions: Bed (02/23/232006) Zeeshan Score (auto-calculation): 12 (02/23/23 1700) Additional Assessment Information: Patient just removed from correction EEG. Scattered ecchymosis over body. * Rosalind Del Angel RN - 02/23/2023 4:45 PM EDT Dual Licensed Skin Assessment completed by Rosalind Adams and Sammy Salazar. The patient is/has a pressure injury on their torso - consider low air loss bed Skin Breakdown (includes non blanchable erythema): Yes. Wound Type: Suspected pressure injury at bony prominence, location sacrum Skin tear, location L wrist Wound Ostomy Nurse Notified: Yes - notified via wound care protocol; patient is transferred from 4; already on low air loss bed; wound nurse made aware Nursing interventions: skin assessment as needed, turn and reposition, low air loss bed-pt in bed. * Gina Bishop RN - 02/22/2023 2:46 PM EDT Dual Licensed Skin Assessment completed by Gina Bishop RN and Dana Stoner LPN. The patient is/has a N/A Skin Breakdown (includes non blanchable erythema): Yes. Wound Type: Suspected pressure injury at bony prominence, location Sacrum Wound Ostomy Nurse Notified: Yes - notified via wound care protocol Nursing interventions: Foam dressing, frequent turns documented in this encounter OR Notes * OR Surgeon - Bennett Quevedo MD - 02/27/2023 3:20 PM EDT [facility] [address] [facility] [address] OPERATIVE REPORT - Endovascular Neurosurgery Name: James Ibarra Date: 02/27/2023 Time: 3:20 PM Location: OR [facility] Service: Neurosurgery Date of Operation: 02/27/2023 Preoperative Diagnosis: Left carotid stenosis, >95% by NASCET criteria Postoperative Diagnosis: 1. S/p successful left carotid angioplasty and stenting using a 7 mm x 40 mm Cordis Precise stent. 2. Improved flow into right hemisphere. 3. Otherwise negative partial cerebral angiographic study with no evidence of branch occlusion, aneurysm, AVM, or dAVF. Indication: James Ibarra is a 82 year old year-old White male with Prior Stroke. Due to the high grade stenosis and the limited collateral circulation to the affected hemisphere I recommended an intervention with carotid angioplasty and stenting. Surgeon: Bennett Quevedo MD No qualified resident available. Anesthesia: Monitored Local Anesthesia with Sedation Drains: none Estimated Blood Loss: 50 ml. IV Fluids: 1000 ml. Urine Output: N/A Specimens/Disposition: None Apparent Intraoperative Complications: NONE Patient Condition: stable Disposition: Intensive Care Unit Attestation: I performed the procedure Fluoro Time: 132.6 Contrast: 0.10 DAP: 84 Consent: The patient and family were given a full and complete explanation of the procedure including the risks, benefits, and possible complications which include but are not limited to vessel injury, vesselrupture, stroke, infection, coma and , and may include additional procedures. They understood and wished to proceed. Informed consent for the procedure was given. Anesthesia: Monitored anesthesia control sedation was administered by the anesthesia team, please see thei record for details. Local infiltration of the groin using subcutaneous and subcuticular injection of lidocaine. Procedure: The patient was brought into the biplane high-resolution endovascular suite and placed on the table. The patient was identified using two identifiers and a time-out was performed. After prepping and draping both femoral regions in the usual sterile fashion, micropuncture kit was used to puncture the right radial artery under US guidance. A 7Fr slender sheath was inserted. DSA was performed. A cocktail of 2000 units of heparin and 100mcg of nitroglycerin was slowly injected. After waiting 2 minutes and with no change in the pateint's vitals 2.5mg of verapamil was also injected. The slender sheath was removed and a cerebrase guide catheter was inserted over a glide wire and insert. In the mid brachial artery the insert was removed and a montanez 2 catheter was advanced. The patient was givenan additional 2000 units of heparin. I tried numerous times to access and advance the cerebrase cather to the distal left CCA using a combination of regular glide, stiff glide, advantage glide and VTK catheter to no avail. After trying for a while I decided to attempt a femoral access. A micropuncture needle was used to access the right femoral artery. Once I felt I had appropriate access the cerebrase sheath was removed from the radial artery and a radial band was applied for hemostasis in thewrist. A 6Fr sheath was inserted into the femoral artery. DSA was performed. Severe atherosclerotic changes were noted with severe stenosis of the illiac and femoral on the right. However, I was ableto get a wire and sheath into this area. The 6Fr sheath was exchanged for the cerebrase catheter over a J wire again over an insert. In the mid aorta the insert was removed and a montanez 2 select catheter was inserted. I again attempted access to the Left CCA. Eventually using the VTK catheter and a glide wire I was able to advance the cerebrase catheter to the distal left CCA. At this The pateint was given an additional 1000 units of heparin. An exchange support synchro wire with a highflow renegade microcath was used to access the distal cervical left ICA. Through the microcath a selective injection was performed to confirm that I was in the appropriate position and no dissection was noted. A 5mm Spider FX distal protection device which prepped and then deployed in the distal ICA. I pre-dilated using a 3x30 audra balloon. A 7 mm x 40 mm cordis precise stent was prepped and used to cross the stenosis in the intended position and was then deployed. Post-stent dilatation was achieved with a 5 mm x 20 mm viatrac Balloon that was inflated to the rated nominal pressure for a excellent dilatation result. No issues with excessive bradycardia or hemodynamic instability were encountered. The distal protection device was then recovered. Post stenting angiography of the ICA showed a very good post-stenting and angioplasty result and nodissection or branch occlusion. The catheters were then withdrawn from the patient. Manual compression was used for hemostasis and the patient was brought into back to the ICU. Results: -Examination of the leftcommon carotid artery showed normal anatomy with no evidence of stenosis ordissection. -Examination of the left internal carotid artery from a CCA injection showed a severe >95 % by NASCET criteria stenosis of the ICA origin and successful revascularization after angioplasty and stenting with no intracranial branch occlusion and otherwise no evidence of intracranial aneurysm, arteriovenous shunting or intracranial stenosis. Left Hemisphere perfusion is much improved. -Examination of the right external carotid artery from a common carotid injection showed normal anatomy and no evidence of abnormal shunting or dural fistulization. Impression: Successful left ICA cervical stent with distal protection as described. The patient was neurologically stable at the end of the procedure and there were no complications during this procedure. Dr. Quevedo, the attending physician, was present throughout and performed the entire procedure. * OR Surgeon - Bennett Quevedo MD - 02/24/2023 10:45 AM EDT [facility] [address] [facility] [address] OPERATIVE REPORT - Endovascular Neurosurgery Name: James Ibarra Date: 02/24/2023 Time: 10:45 AM Location: OR [facility] Service: Neurosurgery Date of Operation: 02/24/2023 Impression: 1. Severe (>95%) left carotid stenosis at the carotid origin 2. Otherwise normal diagnostic cerebral angiogram without evidence of aneurysm, AVM, or dAVF. 3. Normal capillary and venous filling pattern, all major sinuses appear patent. Recommendations: 1. Will discuss timing of intervention if needed. 2. Continue Aspirin and Plavix as before, no change. Procedure: 1. Ultrasound guidance for vascular access 2. Diagnostic cerebral angiogram, see selected vessel below Surgeon: Bennett Quevedo M.D Attestation: there was no qualified resident to assist in this case. Preoperative Diagnosis: Left carotid stenosis Postoperative Diagnosis: Severe (>95% stenosis) of the left carotid origin. Vessels Selected: Right radial Right subclavian Right CCA Left CCA left subclavian Indication: James Ibarra is a 82 year old year-old male who presented to us with a left caudate stroke and concern for left carotid stenosis. He is here to undergo a diagnostic cervicocerebral angiogram in order to obtain better angiographic definition to define further care and define collateral flow. Consent: The patient and family were given a full and complete explanation of the procedure including the risks, benefits, and possible complications. Risk to include but not limited to bleeding, groin hematoma, infection, stroke with transient or permanent weakness, numbness or other deficit, vision loss, damage to the blood vessels in the arm, leg, neck or elsewhere, coma, , need for additional surgery or interventions, blood vessel blockage, kidney damage from contrast dye, and focal radiation reaction/hair loss were all discussed with the patient and/or their family. They understood and wished to proceed. Informed consent for the procedure was given. Letter Of Credit Clerk: All involved providers and their roles were Surgeon(s) and Role: * Bennett Quevedo MD - Primary Anesthesia: MAC-Sedation Scrub Nurse: Darlyn Deal RN Educational Technician: Anette Rocha RN Pre-Op Nurse: Misael Perez RN Instrumentation Chemist: Jorge Jones, RT; Pau Dee RT (R); Anna Bunch RT; Irish Oodnnell RT If conscious sedation was employed: - see above Sedation RN for trained observer - Medications given Medication Orders Placed This Encounter Medications Acetaminophen (Tylenol) tab 650 mg Albuterol Sulfate (Proventil) (2.5 MG/3ML) 0.083% inhalation solution 2.5 mg Albuterol Sulfate (Proventil) (2.5 MG/3ML) 0.083% inhalation solution 2.5 mg aspirin enteric coated tab 81 mg Baclofen (Lioresal) tab 10 mg carBAMazepine (Tegretol) tab 200 mg clopidogrel (pLAVix) tab 75 mg Docusate Sodium (Colace) cap 100 mg Enoxaparin (Lovenox) inj 40 mg Famotidine (Pepcid) tab 20 mg Finasteride (Proscar) tab 5 mg fluticasone (Flonase) nasal inhaler 2 [place] fluticasone furoate-vilanterol (BREO ellipta) 200-25 MCG/ACT inhaler 1 Puff folic acid tab 1 mg hEParin 3,000 Units, nitroglycerin 200 mcg, verapamil 5 mg injection hEParin 3000 units in 1000 mL NSS infusion Lidocaine (Aspercreme) 4 % patch 1 Patch lidocaine 1 % 1 mL, sodium bicarbonate 9 mL inj metoprolol succinate XL (toPROL XL) tab 12.5 mg Mirtazapine (Remeron) tab 30 mg Polyethylene Glycol 3350 (Miralax) oral powder 17 g FOLLOWED BY Linked Order Group predniSONE (Deltasone) tab 40 mg predniSONE (Deltasone) tab 30 mg predniSONE (Deltasone) tab 20 mg predniSONE (Deltasone) tab 10 mg Simvastatin (Zocor) tab 40 mg sodium chloride 0.9 % flush/inj 3 mL tamsulosin (Flomax) cap 0.8 mg Total intraservice time: * Missing case tracking time(s) * Drains: None Estimated Blood Loss: 10 ml. IV Fluids: 500 ml. Urine Output: NA Specimens/Disposition: None Apparent Intraoperative Complications: NONE Patient Condition: serious after the case was completed after * Missing procedure start or end time(s) * DAP: 0.04 Fluoro time: 5.5 Contrast: 43 Disposition: Post Anesthesia Care Unit after an overall case length of * Missing case tracking time(s) * Attestation: I performed the procedure. Anesthesia: See above. See EPIC record for conscious sedation or anesthesia record. Local infiltration of the groin using subcutaneous and subcuticular injection of lidocaine. Procedure: The patient was brought into the biplane high-resolution endovascular suite in [place] [address] and placedon the table. The patient was identified using two identifiers and a time-out was performed. Both right femoral region and right radial area were prepped in the usual sterile fashion. Under US guidance, using a 19-5 US probe a micropuncture single-walled needled was used to puncture the right radial artery using direct visualization into the proximal radial. The 5 Fr glide slender sheath was introduced using seldinger technique. A cocktail of 200mcg nitroglycerin, 5mg of verapamil and 3000 units of heparin mixed to bring up the volume to 20cc in the patient's own blood was given. * Missing procedure start or end time(s) * Immediately after administration of the cocktail the pateint's blood pressure came down significantly and required resuscitation from anesthesia. Eventually his BP somewhat normalized and we were able to continue with the procedure. Under a combination of roadmap techniques, fluoroscopy and ultrasound guidance a 5Fr Montanez 1 catheter was advanced into above mentioned vessels. DSA was preformed in the appropriate projections. The catheters were removed and a radial band was applied. Diagnostic Findings: Right radial artery: The radial and brachial arteries are normal in course and caliber. No abnormalities appreciated. Right subclavian artery: The costocervical, thyrocervical, internal mammary vessels are within normal limits. There is no significant right vertebral origin stenosis. Right common carotid artery: There is moderate (about 50%) stenosis per NASCET criteria of the right internal carotid artery at the carotid bulb. External carotid artery branches are within normal limits. Images over the head demonstrate no aneurysm or other vascular malformation. There is good filling across the ACOM as well as into the A1 but there is washout from other sources into the MCA. Left CCA: There is severe (>95%) stenosis of the internal carotid artery. There is patency of the more distal carotid into the intracranial circulation although it's delayed and sluggish. Left subclavian artery: The costocervical, thyrocervical, internal mammary vessels are within normal limits. There is no significant left vertebral origin stenosis. This exam is very limited by patient motion which limits diagnostic ability. documented in this encounter Miscellaneous Notes * Care Plan - Soto Nicholas RN - 03/01/2023 2:24 PM EDT Clinical Goal(s): potential d/c home today, pain control, ambulate as tolerated, hemodynamic stability (03/01/23 0700) Possible barriers to meeting goal(s)/advancing plan of care: discharge today Stability of the patient: Moderately stable - low risk of patient condition declining or worsening Summary regarding today's goal(s): Met: discharge today Recommendations: follow up appointments, strict medication adherence. Home health aid. * Progress Notes - Post-Op Global - Michel Coleman MD - 03/01/2023 6:57 AM EDT NEUROLOGICAL SURGERY PROGRESS NOTE [facility] [address] Name: James Ibarra Location: [facility] [id number] Date: 03/01/2023 Time: 6:57 AM Hospital day number: 7 SUBJECTIVE: NAEON, stable for discharge from neurosurgery perspective OBJECTIVE: Most recent vital signs: BP: 137 mmHg/65 mmHg (03/01/23599) Pulse: 72 (03/01/23599) Temp: 36.39 C (03/01/23599) Resp: 25 (03/01/23599) SpO2: 99 % (03/01/23599) Vital signs over last 24 hours: Systolic BP: Most Recent Systolic BP Av.3 mmHg Min: 87 mmHg Max: 137 mmHg Temperature: Most Recent Temperature Av.7 C Min: 36.39 C Max: 37 C Pulse: Pulse Avg: Pulse Av.5 Min: 64 Max: 83 Respirations: Resp Av.2 Min: 17 Max: 29 SpO2: SpO2 Av.3 % Min: 86 % Max: 100 % SpO2: SpO2 Av.3 % Min: 86 % Max: 100 % FiO2%: No data recorded ICP: No data found.CPP (adult): No data found.Intake Input/Output: (last 24 hours) Intake/Output Summary (Last 24 hours) at 03/01/2023 0657 Last data filed at 03/01/2023 0600 Gross per 24 hour Intake 1030 ml Output 2100 ml Net -1070 ml WOUND CARE: dressing intact PHYSICAL EXAM: AOx3 PERRL No facial droop RUE 5/5 RLE 5/5 LUE 5/5 LLE 5/5 Sensation grossly intact in all extremities LABS: Labs reviewed Imaging studies: No new imaging IMPRESSION: James Ibarra is a 82 year old male patientwith hx of [place] s/p cardiac arrest s/p PPM (2001)and seizures presenting as transfer from OSH for seizure event upon discharge from OSH. Found to have new RLE weakness. Imaging workup showing b/l L>R ICA stenosis. S/p DSA 02/24 and now s/p left carotid angioplasty and stenting w/ Dr. Quevedo 02/27. 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 * PLAN: Will adjust plavix dosing depending on PRU levels MGMT follow up outpatient Pain control with multimodal regimen Maintenance fluids until adequate p.o. intake Antiemetics PRN Ok for diet from nsgy perspective Incentive spirometer q1h Continue home meds VTE ppx with SCDs, TEDs Patient discussed with Dr. Roach Associated attestation - Santiago Roach MD - 03/01/2023 9:13 AM EDT I saw and evaluated the patient today. I have reviewed the trainee note and agree. * Ancillary Progress Note - Sandra Elam CCC-INFORMATION SYSTEMS PROFESSOR - 02/28/2023 3:22 PM EDT PROGRESS NOTE - Speech-Language Pathology [facility] [address] Name: James Ibarra Location: [facility] A436/[id number] Date: 02/28/2023 Time: 3:22 PM Patient Status: Inpatient Insurance: Payor: [employer] [facility] ([employer]) MEDICARE ADVANTAGE / Plan: e-contratos PPO / Product Type: *No Product type* / Patient Age: [age] year old Pt seen for f/u dysphagia tx this date for ongoing assessment of swallowing function and potential diet advancement. He was seen for initial bedside swallow evaluation 02/25/23 with recommendations for puree solids and thin liquids. Pt was seated upright in chair at bedside upon the clinician's arrival; awake, alert, and eager to participate. present for duration of session. Pt was presented with trials of thin liquids via straw, puree, soft & bite- sized, and regular consistencies. Oral and pharyngeal phases were judged to be within functional limits and without s/s of penetration/aspiration. Recommend: -Regular solids -Thin liquids -Straws OK -Medications as tolerated -OOB to chair for meals/upright for all PO intake -Assist PRN ST to sign off at this time, as pt appears to be at baseline swallow function/diet. * Ancillary Progress Note - ANDRES Quach - 02/28/2023 3:13 PM EDT CARE MANAGEMENT - ADULT TRANSITION NOTE [address] [address] Name: James Ibarra Location: [facility] [id number] Date: 02/28/2023 Time: 3:13 PM Prescription Coverage: Yes (02/26/23799) RX Plan and Comment: [facility] (02/26/23799) Risk Stratification Risk Stratification Psycho Social/Care Gaps concerns identified upon admission:: Adjustment to illness/injury () OBRA or OPTIONS needed for placement: No (02/26/23799) Readmission Risk Score: 27.61 (02/28/23 1200) AM-PAC Score With Stairs : 16 (02/28/23 1141) Caregiver Information Patient Contacts Name Relation Home Work Mobile THANIA REGALADO Significant Other [phone] Transition of Care Checklist Transition of Care Checklist (aka Readmission Risk Score) Readmission Risk Score: 27.61 (02/28/23 1200) Narrative: SW met with patient and his significant other to discuss rehab recommendation. Patient adamantly declined rehab stating that he privately pays for a physical therapist to come to his house. He states his significant other is always home and she confirmed the same that she would be there to help him. Declined home health services stating they were happy with the PT that they private payfor and did not want anything additionally. Will continue to follow. Anticipated Transportation at Discharge: significant other Patient/Family Expectations: home Transition Planning Transition Planning Transition Plan/Considerations: Needs uncertain at this time - Continue monitoring for needs;Discussed at Interdisciplinary Team / Boost Rounds (02/26/23799) Additional Considerations: none Care Management will continue to monitor and assist with discharge planning needs * Ancillary Progress Note - Nikky Don RDN - 02/28/2023 1:46 PM EDT CLINICAL NUTRITION INTERVAL NOTE [address] [address] Name: James Ibarra Location: [facility] A436/A Date: 02/28/2023 Time: 1:46 PM How patient was identified (select 2): Medical record number and Name James Ibarra is being seen in follow up for adjustment in nutritional care Diet: Pureed Diet Oral Nutrition Supplement (ONS): Supplement Shake (1/2 cup provides 200 calories, 6 grams protein, 34 grams carbohydrate)-TID Chart reviewed for pertinent nutrition information. This credit underwriter received a message from the diet office requesting that milkshakes be provided at mealtimes. NUTRITION INTERVENTION/PLAN: Will order Chocolate milkshake (331 calories, 7.4 grams of protein, 17 grams of fat, 41 grams of CHO, 133 mg of sodium, 428 mg of potassium, 205 mg of phosphorus, and 0.5 mg of Vitamin K) OR Vanilla milkshake - (319 calories, 7. grams of protein, 17 grams of fat, 35 grams of CHO, 138 mg ofsodium, 362 mg of potassium, 202 mg of phosphorus, and 0.6 mg of Vitamin K) ) -TID Clinical Nutrition Recommendations: Diet: Continue current nutrition plan Nikky oDn RDN, LDN Registered Dietitian [phone] Available via path intelligence * Ancillary Progress Note - Kristi Willams, ELECTRONIC TRAIN CONTROL TECHNICIAN - 02/28/2023 11:41 AM EDT PROGRESS NOTE - Physical Therapy [facility]-[address] [address] Name: James Ibarra Location: [facility] A436/A Date: 02/28/2023 Time: 11:41 AM James Ibarra is a/an 82 year old male. Patient Status: Inpatient Insurance: Payor: DANYA GERONIMO MARÍA ([employer]) MEDICARE ADVANTAGE Plan: e-contratos PPO Product Type:*No Product type* Patient Seen: at bedside, nursing cleared patient for therapy Patient Identified By: Name, ID Band and Date Diagnosis: seizure (02/28/23 1141) Status of treatment: Treatment completed (02/28/231140) Orders: PT evaluation and treatment;OOB (02/28/231140) Weight Bearing Status: Weight bearing as tolerated (02/28/231140) Precautions: Alarms;Falls;Safety (02/28/231140) Total Treatment Time--free text: 26 (02/28/231140) Subjective: Patient pleasant and agreeable; motivated to participate. Pain: No complaints of pain. P.T. Bed Mobility Supine-Sit: Minimal Assistance (02/28/231140) Transfers Sit-Stand: Minimal Assistance (02/28/231140) Stand-Sit: Minimal Assistance (02/28/231140) Ambulation: Distance ambulated (feet): 3 (bed to chair) Assistive Device: Rolling walker Assist: Minimal Assistance Balance Sit (Static): Fair (02/28/231140) Sit (Dynamic): Fair (-) (02/28/231140) Stand (Static): Fair (-) (02/28/231140) Stand (Dynamic): Poor (+) (02/28/231140) Patient and or Family Goal(s): to get well and to return home Topic of Education: Safety with mobility, Goals/plan of care and Use of assistive device Method of Education: Verbal discussion and explanation provided to patient: demonstrated the exercise and or task Treatment Provided: Therapeutic Activities 26 minutes: bed mobility training transfer training Alarm Status Patient positioned in: Chair (02/28/231140) With: Pressure pad alarm intact and functioning and call grullon in reach (02/28/231140) Patient Education Review of Precautions: Safety;Fall (02/28/231140) Safety Awareness: Patient verbalizes insight of current deficits;Patient can communicate basic needs (02/28/231140) Preferred learning method: Combination (02/28/231140) Barriers to learning: Medical Status (02/28/231140) Method of Education: Verbalized to patient;Patient demonstrated task (02/28/231140) Assessment: Patient pleasant and agreeable to therapy, supine upon arrival, motivated to participate. RN reporting blood pressures have been low, blood pressures monitored throughout session. Supine blood pressure 107/71. Bed mobility completed with minimal assist to rise. Emphasis on balance and en durance at edge of bed. Patient's sitting balance at edge of bed maintained with supervision to contact guard for static and dynamic activities. EOB blood pressure 93/61. Sit to stands completed withminimal assist to rise. Ambulation completed with rolling walker to bedside chair, patient ambulated 3 feet. Blood pressure taken post transfer, 87/46. Seated rest break, then additional transfer training completed, 3 sit to stand transfers with education on hand placement to improve technique. Additional distance ambulation not completed this session due to low blood pressure. Patient positionedfor comfort upon end of treatment session. Call grullon in reach and chair alarm on. Please consider post-acute care services which may include home health, [place] [facility] [place], outpatient therapy or inpatient rehabilitation. The level of care will be determined in collaboration with patient, family/caregiver and care team members. Deficits requiring P.T. treatment needs: Safety;Mobility;Balance;Weakness;Endurance;Lower extremitystrength (02/28/23 1141) Equipment needs: (TBD) (02/26/23 2589) Plan: Continue with current treatment plan established on evaluation. AM PAC Score with Stairs: 16 A portion of this AM-PAC assessment not scored based on functional assessment; rather clinical decision making utilized based on current findings and/or prior level of function. Please refer to future AM-PAC calculations of functional ability as they become available. * Ancillary Progress Note - BINU Hobbs - 02/28/2023 11:38 AM EDT PROGRESS NOTE - Occupational Therapy [facility]-[address] [address] Name: James Ibarra Location: [facility] A436/A Date: 02/28/2023 Time: 12:16 PM James Ibarra is a 82 year old male. Patient Status: Inpatient Insurance: Payor: DANYA GERONIMO [facility] ([employer]) MEDICARE ADVANTAGE Plan: [employer] PPO Product Type:*No Product type* Patient Seen: at bedside, nursing cleared patient for therapy Patient Identified By: Name, ID Band and Date Diagnosis: seizure-like activity, ICH (02/28/23 1138) Status of treatment: Treatment completed (02/28/231137) Orders: OT evaluation and treatment (02/28/231137) Weight Bearing Status: Weight bearing as tolerated (02/28/231137) Precautions: Alarms;Falls;Safety (02/28/231137) Total Treatment Time: 26 (02/28/231137) Subjective: Patient agreeable to therapy session. Pain: No complaints of pain. Observations Consciousness: Alert (02/28/231137) Orientation: Person;Place (02/28/231137) Psychosocial: Patient can communicate basic needs;Patient can converse in a social setting (02/28/231137) Sitting posture: Forward head;Rounded shoulders (02/28/231137) Standing posture: Forward head;Rounded shoulders (02/28/231137) Safety awareness: The Patient verbalizes insight of current deficits.;The Patient demonstrates carryover of insight during functional tasks.;Needs cueing supervision. (02/28/231137) Other Findings Endurance: Sitting tolerance;Standing tolerance;Functional activity;Fair (02/26/23901) Light touch sensation: LUE;RUE;Intact (02/26/23901) Coordination: LUE;RUE;Intact (02/26/23901) Current Functional Status: Activities of Daily Living: Self Care Grooming: Supervision (Please comment) (wash face) (02/28/231137) Dressing Upper Body: Moderate Assistance (andree robe) (02/28/231137) Lower Body: Maximal Assistance (andree socks) (02/28/231137) Functional Ambulation Assistive Device: Rolling walker (02/28/231137) Distance in feet:: 2 (02/28/231137) Level of Assistance: Minimal Assistance (02/28/231137) Bed Mobility Supine-Sit: Minimal Assistance (02/28/231137) OT Transfers Sit-Stand: Minimal Assistance (02/28/231137) Stand-Sit: Minimal Assistance (02/28/231137) Balance Sit (Static): Fair (02/28/231137) Sit (Dynamic): Fair (-) (02/28/231137) Stand (Static): Fair (-) (02/28/231137) Stand (Dynamic): Poor (+) (02/28/231137) Patient Education Education Topic: Role of OT (02/28/231137) Review of Precautions: Safety;Fall (02/28/231137) Method of Education: Verbalized to patient (02/28/231137) Education Provided to: Patient (02/28/231137) Response to Education: Receptive and agreeable to education (02/28/231137) Barriers to learning: None (02/28/231137) Preferred learning method: Combination (02/28/231137) Alarm Status Patient positioned in: Chair (02/28/231137) With: Pressure pad alarm intact and functioning and call grullon in reach (02/28/231137) Following session patient seated OOB in chair with chair alarm activated. Chair alarm (did not havecord to plug into call grullno system and/or room did not have port to plug cord into call grullon system). Patient's nurse was made aware. Treatment Provided: Self Senior Living Management Trainin minutes ADL training Transfer training Bed mobility training Functional mobility training Deficits requiring O.T. treatment needs: ADL/self- care;Balance;Endurance;Functional mobility;Safety;Upper extremity strength (02/28/231137) Assessment: Patient supine in bed upon arrival, pleasant and cooperative. Bed mobility performed with minimal assistance. Patient completed ADLs with above levels of assistance while seated on edge of bed, required contact guard assistance to maintain balance. Sit to stand transfer performed from bedside with minimal assistance. Patient performed functional mobility while transferring from bed tochair using rolling walker with minimal assistance. Patient performed additional sit to stand transfers from reclining chair with minimal assistance, verbal cues required for hand placement and Patient demonstrated good follow through with cues. Further mobility training held at this time d/t Patient's BP. BP was monitored throughout therapy session- values below. Patient's RN notified about BP values and how therapy session went. Patient left seated in reclining chair with all needs met. Please consider post- acute care services which may include home health, [place] [facility] [place], outpatient therapy or inpatient rehabilitation. The level of care will be determined in collaboration with patient, family/caregiver and care team members. BP values At rest: 107/71 Edge of bed: 93/61 Post-mobility: 87/46 Plan: To continue plan of care. Anticipated Frequency (on eval): 3 to 5 times per week (02/28/231137) Equipment Equipment used in Therapy: Rolling walker (02/28/231137) AM-PAC Help From Another Person Eating Meals: A little (02/28/231137) Help From Another Person Taking Care of Personal Grooming: A little (02/28/231137) Help From Another Person To Put On/Take Off Upper Body Clothing: A little (02/28/231137) Help From Another Person To Put On/Take Off Lower Body Clothing: A lot (02/28/231137) Help From Another Person Toileting: A lot (02/28/231137) Help From Another Person Bathing: A lot (02/28/231137) OT AM-PAC Score: 15 (02/28/231137) OT AM-PAC t-Scale Score: 34.69 (02/28/231137) HLM (Highest Level of Mobility) Goal: Level 5 standing (1 or more minutes) (02/28/231140) A portion of this AM-PAC assessment not scored based on functional assessment; rather clinical decision making utilized based on current findings and/or prior level of function. Please refer to future AM-PAC calculations of functional ability as they become available. * Progress Notes - Post-Op Global - Get Hollis MD - 02/28/2023 8:19 AM EDT NEUROLOGICAL SURGERY PROGRESS NOTE [facility]-[address] [address] Name: James Ibarra Location: [facility] A436/A Date: 02/28/2023 Time: 8:19 AM Hospital day number: 6 SUBJECTIVE: NAEO OBJECTIVE: Most recent vital signs: BP: 112 mmHg/55 mmHg (02/28/23714) Pulse: 75 (02/28/23714) Temp: 36.78 C (02/28/2300) Resp: 25 (02/28/23714) SpO2: 86 % (02/28/23714) Vital signs over last 24 hours: Systolic BP: Most Recent Systolic BP Av.2 mmHg Min: 82 mmHg Max: 135 mmHg Temperature: Most Recent Temperature Av.6 C Min: 35.61 C Max: 37.11 C Pulse: Pulse Avg: Pulse Av.4 Min: 62 Max: 88 Respirations: Resp Av.2 Min: 15 Max: 38 SpO2: SpO2 Av.3 % Min: 85 % Max: 100 % SpO2: SpO2 Av.3 % Min: 85 % Max: 100 % FiO2%: No data recorded ICP: No data found.CPP (adult): No data found.Intake Input/Output: (last 24 hours) Intake/Output Summary (Last 24 hours) at 02/28/2023 0819 Last data filed at 02/28/2023 0700 Gross per 24 hour Intake 2659.5 ml Output 1370 ml Net 1289.5 ml WOUND CARE: dressing intact PHYSICAL EXAM: AOx3 PERRL No facial droop RUE 5/5 RLE 5/5 LUE 5/5 LLE 5/5 Sensation grossly intact in all extremities LABS: Labs reviewed Imaging studies: No new imaging IMPRESSION: James Ibarra is a 82 year old male patientwith hx of [place] s/p cardiac arrest s/p PPM (2001)and seizures presenting as transfer from OSH for seizure event upon discharge from OSH. Found to have new RLE weakness. Imaging workup showing b/l L>R ICA stenosis. S/p DSA 02/24 and now s/p left carotid angioplasty and stenting w/ Dr. Quevedo 02/27. 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 * PLAN: Close neurochecks and vitals Stat PRU this morning, resuming plavix pending PRU levels Will adjust plavix dosing depending on PRU levels MGMT follow up outpatient Pain control with multimodal regimen Continue perioperative antibiotics as ordered Maintenance fluids until adequate p.o. intake Antiemetics PRN Ok for diet from nsgy perspective Incentive spirometer q1h Continue home meds VTE ppx with SCDs, TEDs Plan for dc later today Patient discussed with Dr. Roach Associated attestation - Santiago Roach MD - 02/28/2023 10:38 AM EDT I saw and evaluated the patient today. I have reviewed the trainee note and agree. * Diagnostic Clarification - Angus Viecnte MD - 02/27/2023 8:32 AM EDT The patient has been diagnosed with severe malnutrition. The patient has been diagnosed with chronic respiratory failure with hypoxia and hypercapnia. - stage 2 sacral * Ancillary Progress Note - Nikky Don RDN - 02/27/2023 8:15 AM EDT CLINICAL NUTRITION PROGRESS NOTE [facility]-[address] [address] Name: James Ibarra Location: OR [facility]/OR Date: 02/27/2023 Time: 1:02 PM How patient was identified (select 2): Wristband, Medical record number and Name Discussed in interdisciplinary rounds: Yes James Ibarra is a 82 year old male being seen for follow-up Primary Diagnosis: 82 year old male was admitted on 02/22/2023 and presents with seizure activity. S/p DSA on 02/24/2023. The patient is scheduled to undergo a carotid stent placement on 02/27/2023. Other pertinent information: The patient has been NPO multiple times over the last three days as hewas awaiting a stent placement. Speech pathology assessed the patient on 02/25/2023 and a pureed dietwas recommended. Per the nursing staff yesterday morning, the patient was consuming regular textured foods that were provided by his when his diet was advanced. There are limited meal intakes reported over the last two to three days. NUTRITION ASSESSMENT: Past medical/surgical history and medications reviewed. Food/Nutrition-Related History Nutrition Support: N/A Diet: NPO Previously followed diet: Regular Food Allergies/Intolerances: None. Adult Energy Intake: Less than 50% of estimated energy requirement for greater than 5 days (severe, acute illness). Percentage of meal intake: No recent meal intakes are reported. Oral Nutrition Supplement (ONS): Boost Plus (360 Kcal and 14 gm protein per 237 mL) -TID Pertinent medications/vitamins/minerals/supplements: Isolyte infusion, Colace, Folic Acid, Remeron,Deltasone, Pertinent Biochemical Data: Labs Reviewed. There are no biochemical abnormalities requiring a change in the nutrition plan of care. Nutrition-Focused Physical Findings: Appearance: Cachectic, Ill-appearing and Thin Respiratory support: LFNC Nasal/Oral: Dentition: Dentures: Partial upper dentures and no lower dentures , Mastication, impaired and Swallow function, compromised or painful Digestive: Appetite poor Last Bowel Movement: 02/25/23 (02/25/23 1800) Cognition: Awake, alert and Oriented Skin: Stage III pressure injury is noted on the sacrum region. Per the wound ostomy nurse on 02/26/2023 Enteral access: N/A Nutrition Focused Physical Exam: NFPE completed on 02/27/2023 Subcutaneous Fat Loss:Orbital fat pads:Severe Buccal fat:Severe Tricep:Severe Rib:Severe Muscle Loss:Temples:Severe Clavicles:Severe Shoulders:Severe Scapula:Severe Interosseous:Severe Quadriceps:Severe Calves:Severe Anthropometrics Measurements Height: 170.2 cm (5' 7") (02/22/23 1330) Admission weight: 43.5 kg Weight: 46.1 kg (101 lb 10.1 oz) (02/27/23 0800) BMI: 15.03 (02/22/23 1330) Usual Body Weight: 52 kg [place] weight: 55.2 kg [place] Weight Based on BMI: 18.5 Adjusted ideal weight: N/A Interpretation of Weight Change:No recent/significant weight change Weight Comment: 15% weight loss over 6 months prior to admission. Nutrition Prescription: Energy needs: 35-40 Kcal/kg Kcal/day: 3482-7388 Based on admission weight Protein needs: 1.2-2.0 gm/kg Protein: 53-88 Based on admission weight Fluid needs: 1 ml/1 kcal ml/kg Fluid: 1942-4341 ml/day Based on admission weight Malnutrition: Malnutrition Present: Yes (02/24/231411) Adult Malnutrition Classification: Severe (02/24/231411) Malnutrition Characteristics: Fat loss;Muscle loss;Inadequate energy intake;Weight loss (02/24/231411) Malnutrition Care Plan: Patient meets ASPEN/AND criteria for severe malnutrition. Patient is currently NPO secondary to a procedure . To follow for initiation of diet and/or implementation of appropriate malnutrition intervention per clinical guidelines. Should diet not be initiated in 3-5 days, will consider enteral or parenteral nutrition. Dietitian Action: Monitored NPO/clear liquid status;Oral nutritional supplement ordered/adjusted (02/24/231413) NUTRITION DIAGNOSIS: Malnutrition severe related to chronic illness as evidenced by patient consuming less than 75% of estimated energy requirements x 1 month, greater than 10% weight loss x 6 month, severe fat loss and severe muscle loss. Swallowing and mastication difficulty related to dysphagia as evidenced by the need for a modified textured diet. Increased nutrient needs (protein) related to wound healing as evidenced by the presence of a stageIII pressure injury on the sacrum region. Goals: Transition to oral or enteral nutrition support as soon as clinically feasible. Previous diagnosis/Goals: Patient to consume greater than 50 % of daily meals and 50% of daily supplements within 3-5 days.- once the patient's diet is advanced. No improvement NUTRITION INTERVENTION/PLAN: Continue to monitor NPO/clear liquid status Will order 30 mL LiquaCel BID (200 calories, 32 grams of protein, 40 mg of phosphorus, 20 mg of potassium) to promote wound healing once the diet is advanced. Clinical Nutrition Recommendations: Diet: Advance diet when clinically feasible Recommend providing zinc sulfate (220 mg x 10 days) and Vitamin C (1000 mg/day) to promote wound healing. NUTRITION MONITORING AND EVALUATION: Nursing documentation flowsheets for percent meal intake Tolerance of supplement per patient/nursing report Lab values warranting change with MNT Weight for trends Plan follow-up: Will follow and adjust nutrition plan of care as medical condition requires. Please contact for change(s) in patient condition requiring earlier intervention. Nikky Don RDN, LDN Registered Dietitian [phone] Available via path intelligence * Progress Notes - Post-Op Krysten - Ever Stuart MD - 02/27/2023 7:48 AM EDT NEUROLOGICAL SURGERY PROGRESS NOTE [address] [address] Name: James Ibarra Location: [facility] A436/A Date: 02/27/2023 Time: 7:48 AM Hospital day number: 5 SUBJECTIVE: no acute events overnight OBJECTIVE: Most recent vital signs: BP: 139 mmHg/58 mmHg (02/27/23 0400) Pulse: 61 (02/27/23 0400) Temp: 36.78 C (02/27/23 0400) Resp: 21 (02/27/23 0400) SpO2: 100 % (02/27/23 0000) Vital signs over last 24 hours: Systolic BP: Most Recent Systolic BP Av.4 mmHg Min: 90 mmHg Max: 153 mmHg Temperature: Most Recent Temperature Av.8 C Min: 36.61 C Max: 36.89 C Pulse: Pulse Avg: Pulse Av Min: 60 Max: 86 Respirations: Resp Av.3 Min: 19 Max: 31 SpO2: SpO2 Av % Min: 96 % Max: 100 % SpO2: SpO2 Av % Min: 96 % Max: 100 % FiO2%: No data recorded ICP: No data found.CPP (adult): No data found.Intake Input/Output: (last 24 hours) Intake/Output Summary (Last 24 hours) at 02/27/2023 0748 Last data filed at 02/27/2023 0400 Gross per 24 hour Intake 150 ml Output 800 ml Net -650 ml WOUND CARE: R radial C/D/I DRAINS: none PHYSICAL EXAM: Awake, alert, oriented to person, place, not time Resting comfortably in bed No acute distres Neurologic Examination Shahida Coma Scale (GCS): Eyes Open: 4 = spontaneous Best Verbal Response: 4 = confused Best Motor Response: 6 = obeys commands appropriate for age Coma Score: 14 PERRL EOMI No facial droop DEGROOT to command RUE 5/5 LUE 5/5 RLE 2/5 LLE 5/5 Sensation grossly intact LABS: Reviewed Imaging studies: No new images IMPRESSION: James Ibarra is a 82 year old male patient with hx of [place] s/p cardiac arrest s/p PPM (2001) and seizures presenting as transfer from OSH for seizure event upon discharge from OSH. Found to have new RLE weakness. Imaging workup showing b/l L>R ICA stenosis. Now s/p DSA w/ Dr. Quevedo 02/24. 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 * PLAN: OR today for carotid stenting Consent obtained NPO except meds Hold today's plavix dose Patient discussed with Dr. Quevedo Associated attestation - Bennett Quevedo MD - 02/27/2023 11:59 AM EDT Attending note: I have discussed the patient's management with Ever Stuart MD and Get Hollis MD and agree with the note. Please refer to the documented findings and plan of care. The patient's service consisted of an evaluation. I have seen and evaluated the patient on 02/27/23 TO OR for a SHELBY today * Ancillary Progress Note - ANDRES Quach - 02/26/2023 8:46 AM EDT CARE MANAGEMENT - ADULT INITIAL SCREENING [facility]-[address] [address] Name: James Ibarra Location: [facility] A436/A Date: 02/26/2023 Time: 8:46 AM Patient Class: Inpatient (02/26/23 0800) Discussed patient with the interdisciplinary care team. This Environmental Analyst performed a chart review and met with patient at bedside to complete admission screen and assessed needs for transition planning. The home care scheduler role and services were explained and emotional support was provided. 30 Day Readmission Screening 30 Day Readmission Readmission within 30 days?: No (02/26/23 0800) Chief Complaint: No chief complaint on file. Prior Living Arrangements What was your living situation prior to admission/observation?: Independently;Other (Comment) (withsignificant other) (02/26/23799) Do you have any children, pets, or other dependents that you are currently caring for?: No (02/26/23799) Living Quarters: House (02/26/23799) How many stories is the dwelling?: One Story (02/26/23799) Number of steps to enter living quarters:: 0 (02/26/23799) Location of bathroom(s): All floors or Single story dwelling (02/26/23799) Do you have serious difficulty walking or climbing stairs? (5 years old or older): Yes (02/22/231329) History of falling: Yes (02/26/23799) Prior Level of Functioning Describe the patient's ability prior to admission/observation to perform ADLs: Performs independently (02/26/23799) Requires assistance with: Dressing;Toileting;Bathing;Grooming (02/24/23 113) Describe the patient's mobility status prior to admission: Patient ambulates independently (02/26/23799) Patient uses assistive device: Yes (02/26/23799) If yes, choose:: Walker (02/26/23799) Caregiver Information Patient Contacts Name Relation Home Work Mobile THANIA REGALADO Significant Other [phone] Risk Stratification/Psychosocial/Care Gaps Risk Stratification Psycho Social/Care Gaps concerns identified upon admission:: Adjustment to illness/injury () OBRA or OPTIONS needed for placement: No (02/26/23799) Readmission Risk Score: 29.08 (02/26/23799) AM-PAC Score With Stairs : 8 (02/24/231999) Comments: SW met with patient at bedside to complete initial assessment. Patient resides with his significant other, Thania, in a 1 story home with 0 steps to enter. Prior to admission, he is independent with ADLs and mobility. He uses a rolling walker for ambulation. He denies history of SNF, acuterehab, or home health services. He [facility]L [facility]. He denies mental health or substance abuse concerns. SW participated in IDT rounds this morning. Patient planned to go to OR with neurosurgery for stentplacement. Will request PT/OT updates after procedure to determine appropriate disposition planningneeds. SW will continue to follow, offer support, and address evolving needs as appropriate. Prior to Admission Services Services Prior to Admission ELECTRONIC TRAIN CONTROL TECHNICIAN Services (Services received within the last 30 days with exception, Psych within last two years): N/A (02/26/23799) [place] Dept. of Aging (PDA) Waiver Program: N/A (02/26/23799) ELECTRONIC TRAIN CONTROL TECHNICIAN Transportation (Services received within the last 30 days): Family/Friends Personal Vehicle (02/26/23799) Outpatient Environmental Analyst: no, not applicable Patient/Family Expectations: Home vs Rehab Anticipated Disposition Plan & Post Acute Needs Anticipated Plan Anticipated D/C disposition per abbreviated screening: Other - Describe (pending clinical course) (02/26/23799) For further screening information, please refer to the Care Management flow document. * Progress Notes - Post-Op Global - Get Hollis MD - 02/26/2023 8:24 AM EDT NEUROLOGICAL SURGERY PROGRESS NOTE [facility] [place] [address] Name: James Ibarra Location: [facility] [place] A436/A Date: 02/26/2023 Time: 8:24 AM Hospital day number: 4 SUBJECTIVE: NAEO OBJECTIVE: Most recent vital signs: BP: 127 mmHg/67 mmHg (02/26/23799) Pulse: 76 (02/26/23799) Temp: 36.78 C (02/26/23799) Resp: 22 (02/26/23799) SpO2: 98 % (02/26/23799) Vital signs over last 24 hours: Systolic BP: Most Recent Systolic BP Av.4 mmHg Min: 100 mmHg Max: 150 mmHg Temperature: Most Recent Temperature Av.6 C Min: 36.39 C Max: 37.11 C Pulse: Pulse Avg: Pulse Av.7 Min: 60 Max: 90 Respirations: Resp Av.6 Min: 15 Max: 29 SpO2: SpO2 Av.9 % Min: 92 % Max: 100 % SpO2: SpO2 Av.9 % Min: 92 % Max: 100 % FiO2%: No data recorded ICP: No data found.CPP (adult): No data found.Intake Input/Output: (last 24 hours) Intake/Output Summary (Last 24 hours) at 02/26/2023 0824 Last data filed at 02/26/2023 0800 Gross per 24 hour Intake 1212.5 ml Output 990 ml Net 222.5 ml WOUND CARE: R radial C/D/I DRAINS: none PHYSICAL EXAM: Awake, alert, oriented to person, place, not time Resting comfortably in bed No acute distres Neurologic Examination [place] Coma Scale (GCS): Eyes Open: 4 = spontaneous Best Verbal Response: 4 = confused Best Motor Response: 6 = obeys commands appropriate for age Coma Score: 14 PERRL EOMI No facial droop DEGROOT to command RUE 5/5 LUE 5/5 RLE 2/5 LLE 5/5 Sensation grossly intact LABS: Reviewed Imaging studies: No new images IMPRESSION: James Ibarra is a 82 year old male patient with hx of AK s/p cardiac arrest s/p PPM (2001) and seizures presenting as transfer from OSH for seizure event upon discharge from OSH. Found to have new RLE weakness. Imaging workup showing b/l L>R ICA stenosis. Now s/p DSA w/ Dr. Quevedo 02/24. 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 * PLAN: Neuro/vitals OK for floor from nsgy perspective SBP per neurology OK for regular diet from nsgy perspective OK for chemical DVT ppx Rest of care per neurology/primary team Will revisit with pt today whether he would like to undergo placement of a carotid stent, which canbe done as early as today, , or in outpatient setting Patient discussed with Dr. Quevedo Associated attestation - Bennett Quevedo MD - 02/26/2023 12:32 PM EDT Attending note: I have discussed the patient's management with Michel Coleman MD and Get Hollis MD and agree with the note. Please refer to the documented findings and plan of care. The patient's service consisted of an evaluation. I have seen and evaluated the patient on 02/26/23 Patient and would like to proceed with SHELBY. I reviewed the risks, benefits and alternatives once again. I discussed the risks to include but not limited to bleeding, infection, damage to blood vessels, restenosis or occlusion of stent, need for additional procedures and the small but real riskof . All questions answered. Consent signed. Will proceed tomorrow. PRU pending. If supertherapeutic would hold tomorrow's dose. * Progress Notes - Non-Billable - Ya Guo DO - 02/25/2023 6:58 AM EDT BRIEF CARDIOLOGY NOTE: Patient's TTE resulted yesterday afternoon: " The septal motion is abnormal consistent with intrventricular conduction delay. The regional left ventricular wall motion is otherwise normal. There is diffuse right ventricular hypokinesis. The right ventricular systolic function is mildly reduced . The aortic valve is mildly calcified. Image and Doppler assessment of aortic stenosis severity is discordant: Mild to moderate aortic stenosis is suspected. There is an eccentric jet of mild to moderate tricuspid regurgitation" Recommendations: -agree with IVF -avoid aggressive vasodilation moving forward -no further cardiology work up or treatment needed Cardiology will sign off at this time. Thank you for allowing us to care for the patient. Please donot hesitate to reach out with questions, concerns, or changes in patient condition. * Progress Notes - Post-Op Global - Michel Coleman MD - 02/25/2023 5:00 AM EDT NEUROLOGICAL SURGERY PROGRESS NOTE [facility] [place] [address] Name: James Ibarra Location: [facility] A4/A Date: 02/25/2023 Time: 5:00 AM Hospital day number: 3 SUBJECTIVE: NAEON, intermittently delirious overnight OBJECTIVE: Most recent vital signs: BP: 139 mmHg/65 mmHg (02/25/23399) Pulse: 58 (02/25/23399) Temp: 36.61 C (02/25/23399) Resp: 19 (02/25/23399) SpO2: 100 % (02/25/23399) Vital signs over last 24 hours: Systolic BP: Most Recent Systolic BP Av.4 mmHg Min: 85 mmHg Max: 154 mmHg Temperature: Most Recent Temperature Av.4 C Min: 36.06 C Max: 36.72 C Pulse: Pulse Avg: Pulse Av Min: 58 Max: 98 Respirations: Resp Av.4 Min: 14 Max: 32 SpO2: SpO2 Av.9 % Min: 95 % Max: 100 % SpO2: SpO2 Av.9 % Min: 95 % Max: 100 % FiO2%: No data recorded ICP: No data found.CPP (adult): No data found.Intake Input/Output: (last 24 hours) Intake/Output Summary (Last 24 hours) at 02/25/2023 0500 Last data filed at 02/25/2023 0500 Gross per 24 hour Intake 1642.5 ml Output 1555 ml Net 87.5 ml WOUND CARE: R radial C/D/I DRAINS: none PHYSICAL EXAM: Awake, alert, oriented to person, place, not time Resting comfortably in bed No acute distres Neurologic Examination [place] Coma Scale (GCS): Eyes Open: 4 = spontaneous Best Verbal Response: 4 = confused Best Motor Response: 6 = obeys commands appropriate for age Coma Score: 14 PERRL EOMI No facial droop DEGROOT to command RUE 5/5 LUE 5/5 RLE 2/5 LLE 5/5 Sensation grossly intact LABS: Reviewed Imaging studies: No new images IMPRESSION: James Ibarra is a 82 year old male patient with hx of AK s/p cardiac arrest s/p PPM (2001) and seizures presenting as transfer from OSH for seizure event upon discharge from OSH. Found to have new RLE weakness. Imaging workup showing b/l L>R ICA stenosis. Now s/p DSA w/ Dr. Quevedo 02/24. Problem list: Principal Problem: Convulsions (HCC) Active Problems: GERD (gastroesophageal reflux disease) Tobacco use disorder Old myocardial infarct Dyslipidemia, goal LDL below 100 BPH (benign prostatic hyperplasia) Chronic neck pain Intractable low back pain Ambulatory dysfunction Resolved Problems: * No resolved hospital problems. * PLAN: Neuro/vitals OK for floor SBP per neurology OK for regular diet from neurosurgery perspective OK for chemical DVT ppx Rest of care per neurology/primary team Patient to be discussed with Dr. Quevedo Associated attestation - Bennett Quevedo MD - 02/25/2023 1:33 PM EDT Attending note: I have discussed the patient's management with Michel Coleman MD and Get Hollis MD and agree with the note. Please refer to the documented findings and plan of care. The patient's service consisted of an evaluation. I have seen and evaluated the patient on 02/25/23 Neuro stable (slightly confused with slight right sided weakness leg > arm). Spoke with patient and his today about the option of a carotid stent. We can consider doing that for him as early as tomorrow or if he so wishes. Otherwise he can go home and we can discuss his options as an outpatient. I discussed that typically I would recommend a stent in his condition with no reservations but due to his frailty his risks of the procedure are higher then normal. I also discussed that he would need to be on Plavix for about 3 months after the stent. Due to his frailty I do not think he would tolerate a CEA. All questions were answered. They will think about their options and let me know. I reviewed the risks of the procedure in detail to include but not limited to the risk of stroke, bleeding, damage to blood vessels, occlusion or stenosis of the stent, need for additional procedures, damage from the dye or radiation. * Communication - Tia Menendez RN - 02/24/2023 2:39 PM EDT Consulted for suspected pressure injury to sacrum. Currently getting echocardiogram at bedside. Spoke with bedside RN, looks to be a stage 2, currently with foam dressing. On genesis low air loss mattress. Will follow and coordinate assessment as able. Continue foam dressing to sacrum and pressure injury prevention per policy. * Respiratory Progress Note - Pamela Nielson RRT - 02/24/2023 1:02 PM EDT PATIENT DRIVEN PROTOCOL - Respiratory Care Services [address] [address] Name: James Ibarra Location: [facility] A436/A Date: 02/24/2023 Time: 1:02 PM Patient Driven Protocol Summary: Re-evaluation . This Treatment Plan and medications will be reviewed by the Primary Care Team for any contraindications. Respiratory Care Treatment Plan Aerosol Therapy Treatment:: Hand Held Nebulizer Tx PRN with Albuterol Sulfate: Unit dose 0.083%. to reduce work of breathing and improve pulmonary gas exchange. Additional Aerosolized Treatments: Inhaler(s) QDAY with Breo Ellipta (Fluticasone furoate 200 mcg and Vilanterol 25 mcg inhalation powder) / 1 inhalation . to reduce work of breathing and improve pulmonary gas exchange and suppress bronchial inflammation and edema by the use of systemic steroid sparing therapy. . Pulmonary Volume Expansion Therapy: Incentive Spirometry PRN to prevent or treat alveolar consolidation and atelectasis. . Secretion Management Treatment: Flutter TherapyPRN to enhance mobilization of secretions. . The patient will be re-evaluated: No re-evaluation needed. Indications for treatment met. The Triage Level is: (Assessment Score = [...] Medical Record Assessment Clinical Findings Pulmonary Status: 2 - Smoking more than or equal to 1 pack/day Surgical Status: 1 - General Surgery Chest X-Ray: 0 - Not Performed or performed greater than 3 days ago Assessment Score: 3 Patient Assessment Clinical Findings Respiratory Pattern: 0 - RR 12 - 20; Patient only gets breathless with strenuous exercise. Breath Sounds: 2 - Diminished bilaterally Cough Effectiveness: 0 - Strong non-productive Sputum Production: 0 - No sputum production Level of Activity: 2 - Temporarily non-ambulatory O2 needed to keep SpO2 greater than or equal to 92%: 1 - Oxygen 1-3 LPM or FiO2 less than 35% Assessment Score: 5 Total Assessment Score: 8 Breath Sounds: Inspiratory and expiratory diminished bilaterally.. Cough and Sputum: An effective cough produced no sputum... CXR: NA. Vital Signs: Resp: 29 (02/24/23 1200) Pulse: 82 (02/24/23 1200) Temp: 36.2 C (97.2 F) (02/24/23 1200) BP: 114/53 (02/24/23 1230) SpO2: 99 % (02/24/231199) PFT: Minimal Predicted IC: 1. L. Inspiratory capacity: 1.0L. Primary Service: Neurology - Stroke. Admitting Diagnosis: Seizure (HCC) [R56.9] Seizure-like activity (HCC) [R56.9] Pulmonary Diagnosis: CHF and current smoker . Prescriptions/Home Medications/Durable Medical Equipment: Symbicort, PRN: Albuterol . Recommended New home medications/durable medical equipment/outpatient pulmonary/sleep referral none. * Progress Notes - Post-Op Global - Micehl Coleman MD - 02/24/2023 12:33 PM EDT NEUROLOGICAL SURGERY PROGRESS NOTE [facility] [place] [address] Name: James Ibarra Location: [facility] A436/A Date: 02/24/2023 Time: 12:34 PM Hospital day number: 2 SUBJECTIVE: Patient became hypotensive intraop with injection of vasodilator cocktail. Transferred to NSICU post op for close observation. OBJECTIVE: Most recent vital signs: BP: 114 mmHg/53 mmHg (02/24/23 1230) Pulse: 82 (02/24/23 1200) Temp: 36.22 C (02/24/23 1200) Resp: 29 (02/24/23 1200) SpO2: 99 % (02/24/23 1200) Vital signs over last 24 hours: Systolic BP: Most Recent Systolic BP Av.5 mmHg Min: 96 mmHg Max: 154 mmHg Temperature: Most Recent Temperature Av.3 C Min: 36.06 C Max: 36.78 C Pulse: Pulse Avg: Pulse Av Min: 67 Max: 98 Respirations: Resp Av.2 Min: 20 Max: 30 SpO2: SpO2 Av.8 % Min: 95 % Max: 100 % SpO2: SpO2 Av.8 % Min: 95 % Max: 100 % FiO2%: No data recorded ICP: No data found.CPP (adult): No data found.Intake Input/Output: (last 24 hours) Intake/Output Summary (Last 24 hours) at 02/24/2023 1234 Last data filed at 02/24/2023 1200 Gross per 24 hour Intake 1100 ml Output 910 ml Net 190 ml WOUND CARE: R radial C/D/I DRAINS: none PHYSICAL EXAM: Awake, alert, oriented to person, place, time Resting comfortably in bed No acute distres Neurologic Examination [place] Coma Scale (GCS): Eyes Open: 4 = spontaneous Best Verbal Response: 5 = verbally appropriate for age Best Motor Response: 6 = obeys commands appropriate for age Coma Score: 15 PERRL EOMI No facial droop DEGROOT to command RUE 5/5 LUE 5/5 RLE 2/5 LLE 5/5 Sensation grossly intact LABS: Reviewed Imaging studies: No new images IMPRESSION: James Ibarra is a 82 year old male patient with hx of AK s/p cardiac arrest s/p PPM (2001) and seizures presenting as transfer from OSH for seizure event upon discharge from OSH. Found to have new RLE weakness. Imaging workup showing b/l L>R ICA stenosis. Now s/p DSA w/ Dr. Quevedo 02/24. Problem list: Principal Problem: Convulsions (HCC) Active Problems: GERD (gastroesophageal reflux disease) Tobacco use disorder Old myocardial infarct Dyslipidemia, goal LDL below 100 BPH (benign prostatic hyperplasia) Chronic neck pain Intractable low back pain Ambulatory dysfunction Resolved Problems: * No resolved hospital problems. * PLAN: q1h neuro checks, vitals neurovascular checks as ordered if hemorrhage is noted, please apply direct pressure for 15 minutes; call Neurosurgery service if it persists or hematoma is observed SBP goal < 160 post angiogram orders as written OK for regular diet from neurosurgery perspective OK for chemical DVT ppx Rest of care per primary team Patient to be discussed with Dr. Quevedo * Progress Notes - Non-Billable - Bennett Quevedo MD - 02/24/2023 11:24 AM EDT During the procedure the patient become hypotensive after the administration of the radial cocktail. This improved with anesthesia providing support in terms of fluid and phenylephrine. However, after the procedure there were concerns for an acute cardiac event (as per anesthesia's note) so the patient was transferred to the ICU. I spoke with his and described the events of the angiogram and the possible heart issue afterwards. From a neurovascular treatment standpoint I will have to discuss the patient with the rest of his treatment team. The concern is that if he did not tolerate the angiogram a carotid stent may be too risky. I discussed that as well with the patient's . * Ancillary Progress Note - Edward Burgess DPT - 02/24/2023 9:49 AM EDT James Ibarra 82 year old [id number] OR [facility]/OR Physical Therapy Pt has planned surgery today and will be unavailable. Pt will be seen at a later time as able/appropriate. Thank you. Edward Burgess, PT, DPT * Ancillary Progress Note - Antonio Constantino OT - 02/24/2023 9:09 AM EDT James Ibarra [id number] OR [facility]/OR 02/24/2023 OT evaluation attempted. Patient off floor at OR. Will follow up as able. * Care Plan - Akilah Garcia RN - 02/24/2023 4:35 AM EDT Problem: Safety & Risk for Injury Goal: Patient will remain free from injury. Outcome: Progressing Problem: Risk for Impaired Physical Mobility Goal: Patient will maintain optimal mobility level. Outcome: Progressing Problem: Actual & Potential for Falls Goal: Patient will remain free of falls. Outcome: Progressing Clinical Goal(s): Patient will be free from fall/harm during shift (02/23/23 2200) Possible barriers to meeting goal(s)/advancing plan of care: New environment, weakness,Occasional disorientation/forget limits Stability of the patient: Moderately stable - low risk of patient condition declining or worsening Summary regarding today's goal(s): Met: No fall or harm during shift Recommendations: Continue falls precautionary measures * Ancillary Progress Note - Tia Ocasio RRT - 02/23/2023 7:13 PM EDT PATIENT DRIVEN PROTOCOL - Respiratory Care Services [address] [address] Name: James Ibarra Location: [facility] H667/A Date: 02/23/2023 Time: 7:14 PM Patient Driven Protocol Summary: Re-evaluation . This Treatment Plan and medications will be reviewed by the Primary Care Team for any contraindications. Respiratory Care Treatment Plan Aerosol Therapy Treatment:: Hand Held Nebulizer Tx Q6H with Albuterol Sulfate: Unit dose 0.083%. to reduce work of breathing and improve pulmonary gas exchange. Additional Aerosolized Treatments: Hand Held Nebulizer Tx PRN with Albuterol Sulfate: Unit dose 0.083%. to reduce work of breathing and improve pulmonary gas exchange. Additional Aerosolized Treatments: Inhaler(s) QDAY with Fluticasone Furoate (200 mcg inhalation powder / 1 inhalation) Arnuity Ellipta. to reduce work of breathing and improve pulmonary gas exchange and suppress bronchial inflammationand edema by the use of systemic steroid sparing therapy. . Pulmonary Volume Expansion Therapy: Incentive Spirometry PRN to prevent or treat alveolar consolidation and atelectasis. . Secretion Management Treatment: Flutter TherapyPRN to enhance mobilization of secretions. . The patient will be re-evaluated: No re-evaluation needed. Indications for treatment met. The Triage Level is: (Assessment Score = 11-15) Level 3. Triage Level Definitions: Level 1 Severe Respiratory/Airway [...] Medical Record Assessment Clinical Findings Pulmonary Status: 4 - Severe or chronic with exacerbation, or 3 or more fractured ribs Surgical Status: 0 - No Surgical History Chest X-Ray: 1 - Chronic Changes or CHF Assessment Score: 5 Patient Assessment Clinical Findings Respiratory Pattern: 1 - RR 21 - 25; Patient gets short of breath when hurrying on level ground or walking up a slight hill. Breath Sounds: 4 - Severe wheezing, rhonchi, stridor Cough Effectiveness: 0 - Strong non-productive Sputum Production: 0 - No sputum production Level of Activity: 1 - Ambulatory with assist O2 needed to keep SpO2 greater than or equal to 92%: 0 - Room Air Assessment Score: 6 Total Assessment Score: 11 Breath Sounds: Inspiratory and expiratory wheezes bilaterally.. Cough and Sputum: An effective cough produced no sputum... CXR: . OMPARISON: DX XR CHEST 1 VIEW 12/18/2022 23:11 FINDINGS: Tubes, catheters and devices: Dual lead pacemaker in the expected position. Lungs: Mild hyperinflation without airspace consolidation. Pleural spaces: No pleural effusion. No pneumothorax. Heart/Mediastinum: No significant cardiomegaly for position and projection. Vasculature: Tortuous aorta. Bones/joints: The bones are demineralized. No displaced fracture. IMPRESSION IMPRESSION: Mild hyperinflation without airspace consolidation. THIS DOCUMENT HAS BEEN ELECTRONICALLY SIGNED BY ARIANA YU MD Specimen Collected: 02/21/23 18:26 Last Resulted: 02/21/23 18:53 Vital Signs: Resp: 24 (02/23/231832) Pulse: 80 (02/23/231832) Temp: 36.8 C (98.2 F) (02/23/231832) BP: 111/58 (02/23/231832) SpO2: 98 % (02/23/231832) Primary Service: Neurology - Stroke. Admitting Diagnosis: Seizure (HCC) [R56.9] Seizure-like activity (HCC) [R56.9] Pulmonary Diagnosis: Current smoker , CHF . Prescriptions/Home Medications/Durable Medical Equipment: Symbicort , PRN Albuterol Recommended New home medications/durable medical equipment/outpatient pulmonary/sleep referral . * Care Plan - Gina Bishop RN - 02/23/2023 4:35 PM EDT Clinical Goal(s): Patient will remain free from injury for duration of shift (02/23/23 0700) Possible barriers to meeting goal(s)/advancing plan of care: Weakness Stability of the patient: Moderately stable - low risk of patient condition declining or worsening Summary regarding today's goal(s): Met: Met Recommendations: Continue to implement safety precautions * Ancillary Progress Note - Priyanka Sousa RRT - 02/23/2023 9:40 AM EDT Images from the original note were not included. PATIENT DRIVEN PROTOCOL - Respiratory Care Services [address] [phone] Name: James Ibarra Location: [facility] A463/B Date: 02/23/2023 Time: 9:41 AM Patient Driven Protocol Summary: Initial evaluation performed. This Treatment Plan and medications will be reviewed by the Primary Care Team for any contraindications. Respiratory Care Treatment Plan Aerosol Therapy Treatment:: Hand Held Nebulizer Tx PRN with Albuterol Sulfate: Unit dose 0.083%. to reduce work of breathing and improve pulmonary gas exchange. Additional Aerosolized Treatments: Inhaler(s) QDAY with Breo Ellipta (Fluticasone furoate 200 mcg and Vilanterol 25 mcg inhalation powder) / 1 inhalation to suppress bronchial inflammation and edema by the use of systemic steroid sparing therapy. . Pulmonary Volume Expansion Therapy: Flutter Therapy PRN: prevent or treat alveolar consolidation and atelectasis. . Secretion Management Treatment: Flutter Therapy PRN to enhance mobilization of secretions. . The patient will be re-evaluated: No re-evaluation needed. Indications for treatment met. The Triage Level is: (Assessment Score = [...] Medical Record Assessment Clinical Findings Pulmonary Status: 4 - Severe or chronic with exacerbation, or 3 or more fractured ribs Surgical Status: 0 - No Surgical History Chest X-Ray: 0 - Clear Assessment Score: 4 Patient Assessment Clinical Findings Respiratory Pattern: 0 - RR 12 - 20; Patient only gets breathless with strenuous exercise. Breath Sounds: 3 - Crackles, mild wheezes, coarse bronchial, upper airway noises Cough Effectiveness: 0 - Strong non-productive Sputum Production: 0 - No sputum production Level of Activity: 3 - Bed rest, able to position self O2 needed to keep SpO2 greater than or equal to 92%: 0 - Room Air Assessment Score: 6 Total Assessment Score: 10 Breath Sounds: Expiratory wheezes bilaterally.. Cough and Sputum: An effective cough produced no sputum... CXR: . 02/21/2023 6:32 PM XR CHEST 1 VIEW Order: [id number] Status: Final result Visible to patient: No (inaccessible in MyChart) Next appt: None 0 Result Notes Details Reading Physician Reading Date Result Priority Ariana Yu MD [phone] 02/21/2023 Narrative & Impression PROCEDURE INFORMATION: Exam: XR Chest Exam date and time: 02/21/2023 18:26 Age: 82 years old Clinical indication: Shortness of breath; Additional info: SOB TECHNIQUE: Imaging protocol: Radiologic exam of the chest. Views: 1 view. COMPARISON: DX XR CHEST 1 VIEW 12/18/2022 23:11 FINDINGS: Tubes, catheters and devices: Dual lead pacemaker in the expected position. Lungs: Mild hyperinflation without airspace consolidation. Pleural spaces: No pleural effusion. No pneumothorax. Heart/Mediastinum: No significant cardiomegaly for position and projection. Vasculature: Tortuous aorta. Bones/joints: The bones are demineralized. No displaced fracture. IMPRESSION IMPRESSION: Mild hyperinflation without airspace consolidation. THIS Vital Signs: Resp: 18 (02/23/23612) Pulse: 75 (02/23/23836) Temp: 36.6 C (97.9 F) (02/23/23612) BP: 156/69 (02/23/23 08) SpO2: 95 % (02/23/23836) Primary Service: Neurology - Stroke. Admitting Diagnosis: Seizure (HCC) [R56.9] Seizure-like activity (HCC) [R56.9] Pulmonary Diagnosis: history of tobacco abuse . Prescriptions/Home Medications/Durable Medical Equipment: Symbicort, albuterol nebs and albuterol mdi. * Care Plan - Froy Willis RN - 02/23/2023 5:03 AM EDT Clinical Goal(s): Patient will remain free from falls (02/22/23 1939) Possible barriers to meeting goal(s)/advancing plan of care: disoriented, LTM Stability of the patient: Moderately stable - low risk of patient condition declining or worsening Summary regarding today's goal(s): Met: Patient remained free from falls Recommendations: Continue implementing fall precautions and purposeful hourly rounding. * Care Plan - Gina Bishop RN - 02/22/2023 6:30 PM EDT Clinical Goal(s): Patient will remain free from injury for duration of shift (02/22/23 1330) Possible barriers to meeting goal(s)/advancing plan of care: Disoriented to Situation, time Stability of the patient: Moderately stable - low risk of patient condition declining or worsening Summary regarding today's goal(s): Met: Met Recommendations: Continue to implement safety precautions * Communication - Tia Calderon DO - 02/22/2023 6:07 PM EDT Baseline continuous video-EEG monitoring report: Video-EEG was reviewed from 1716 on 02/22/2023 to 1737 on 02/22/2023. Generalized slowing, indicative of nonspecific global dysfunction. There were no focal features, epileptiform discharges, or seizures. Full report to follow in AM. Sanya Calderon DO 02/22/2023 6:07 PM documented in this encounter Plan of Treatment Upcoming Encounters Date Type Specialty Care Team Description 03/03/2023 Pharmacy Neurology Wal[place], Pharmacist Neurology [address] [place] [phone] Scheduled Referrals Name Type Priority Associated Diagnoses Orde r Schedule PHARMACIST MEDS THERAPY MGMT REFERRAL OP Referral Within 3 days (urgent) senior living (current) use of antithrombotics/anti platelets Ordered: 02/28/2023 Health Maintenance Due Date Last Done Comments DISCUSS TOBACCO CESSATION (REFER TO SMARTSET #6812) 1939 Depression Screening, Annual for Pts 12 [...] this encounter Medical Devices Implanted Type Area Freight Traffic Consultant Device Identifier Shelf Expiration Date Model / Serial / Lot Stent 7x40 Precise [id number] - [id number] Implanted:Qty : 1 on 02/27/2023 by Bennett Quevedo MD at OR [facility] Left: Carotid [employer] [place] [id number] 12/23/2023 [id number] / / [id number] documented as of this encounter Procedures Procedure Name Priority Date/Time Associated Diagnosis Comments P2Y12 INHIBITOR REACTIVITY (CLOPIDOGREL), VERIFYNOW Routine 03/01/2023 5:20 AM EDT BASIC METABOLIC PANEL STAT 03/01/2023 5:20 AM EDT PHOSPHORUS STAT 03/01/2023 5:20 AM EDT CBC STAT 03/01/2023 5:20 AM EDT MAGNESIUM STAT 03/01/2023 5:20 AM EDT CBC Routine 02/28/2023 10:23 PM EDT CBC STAT 02/28/2023 1:15 PM EDT P2Y12 INHIBITOR REACTIVITY (CLOPIDOGREL), VERIFYNOW STAT 02/28/2023 8:11 AM EDT BASIC METABOLIC PANEL STAT 02/28/2023 4:59 AM EDT PHOSPHORUS STAT 02/28/2023 4:59 AM EDT CBC STAT 02/28/2023 4:59 AM EDT MAGNESIUM STAT 02/28/2023 4:59 AM EDT NEURO IR IMAGING Routine 02/27/2023 3:11 PM EDT CATHETER PLACEMENT EACH INTRACRANIAL BRANCH OF THE INTERNAL CAROTID OR VERTEBRAL ARTERIES 02/27/2023 12:00 PM EDT Stenosis of left carotid artery TRANSCATHETER PLACEMENT OF INTRAVASCULAR STENTS, INTRACRANIAL 02/27/2023 12:00 PM EDT Stenosis of left carotid artery POTASSIUM STAT 02/27/2023 10:44 AM EDT BASIC METABOLIC PANEL STAT 02/27/2023 4:33 AM EDT PHOSPHORUS STAT 02/27/2023 4:33 AM EDT CBC STAT 02/27/2023 4:33 AM EDT MAGNESIUM STAT 02/27/2023 4:33 AM EDT P2Y12 INHIBITOR REACTIVITY (CLOPIDOGREL), VERIFYNOW Routine 02/26/2023 2:42 PM EDT BASIC METABOLIC PANEL STAT 02/26/2023 4:48 AM EDT PHOSPHORUS STAT 02/26/2023 4:48 AM EDT CBC STAT 02/26/2023 4:48 AM EDT MAGNESIUM STAT 02/26/2023 4:48 AM EDT TROPONIN T, HIGH SENSITIVITY STAT 02/25/2023 7:24 AM EDT BASIC METABOLIC PANEL STAT 02/25/2023 7:24 AM EDT PHOSPHORUS STAT 02/25/2023 7:24 AM EDT MAGNESIUM STAT 02/25/2023 7:24 AM EDT CBC STAT 02/25/2023 7:09 AM EDT TROPONIN T, HIGH SENSITIVITY STAT 02/24/2023 11:16 PM EDT TROPONIN T, HIGH SENSITIVITY STAT 02/24/2023 4:49 PM EDT GLUCOSE METER, POINT OF CARE PORTIA 02/24/2023 4:03 PM EDT ECHO, COMPLETE (2D), TRANS-THORACIC STAT 02/24/2023 4:02 PM EDT Shock (HCC) DIFFERENTIAL, AUTOMATED STAT 02/24/2023 12:03 PM EDT TROPONIN T, HIGH SENSITIVITY STAT 02/24/2023 12:03 PM EDT CK-MB STAT 02/24/2023 12:03 PM EDT BASIC METABOLIC PANEL STAT 02/24/2023 12:03 PM EDT ABO/RH STAT 02/24/2023 12:03 PM EDT TYPE AND SCREEN STAT 02/24/2023 12:03 PM EDT CK STAT 02/24/2023 12:03 PM EDT CBC WITH WBC DIFFERENTIAL STAT 02/24/2023 12:03 PM EDT PHOSPHORUS STAT 02/24/2023 12:03 PM EDT LACTATE STAT 02/24/2023 12:03 PM EDT CBC STAT 02/24/2023 12:03 PM EDT DIFFERENTIAL, TECHNOLOGIST REVIEW Routine 02/24/2023 12:03 PM EDT MAGNESIUM STAT 02/24/2023 12:03 PM EDT NEURO IR IMAGING Routine 02/24/2023 10:5 0 AM EDT CATHETER PLACEMENT VERTEBRAL ARTERY, 02/24/2023 9:10 AM EDT Carotid stenosis Symptomatic carotid artery stenosis, bilateral CATHETER PLACEMENT INTERNAL CAROTID ARTERY 02/24/2023 9:10 AM EDT Carotid stenosis Symptomatic carotid artery stenosis, bilateral GLUCOSE METER, POINT OF CARE PORTIA 02/24/2023 9:01 AM EDT BASIC METABOLIC PANEL Routine 02/24/2023 6:35 AM EDT CBC Routine 02/24/2023 6:35 AM EDT EEG FPC MONITORING Routine 02/24/2023 P2Y12 INHIBITOR REACTIVITY (CLOPIDOGREL), VERIFYNOW Routine 02/23/2023 2:02 PM EDT ASPIRIN, VERIFYNOW Routine 02/23/2023 2: [address] HEAD/BRAIN WO CONTRAST Routine 02/23/2023 8:07 AM EDT LIPID PANEL WITH DIRECT LDL IF TG IS HIGH Add-on 02/23/2023 7:27 AM EDT HEMOGLOBIN A1C Add-on 02/23/2023 7:27 AM EDT BASIC METABOLIC PANEL Routine 02/23/2023 7:27 AM EDT CBC Routine 02/23/2023 7:27 AM EDT CARBAMAZEPINE LEVEL Routine 02/22/2023 8 :45 PM EDT documented in this encounter Results * (ABNORMAL) CBC (03/01/2023 5:20 AM EDT) WBC 9.46 4.00 - 10.80 K/uL 03/01/2023 6:22 AM EDT LABORATORY [facility] RBC 2.21 4.50 - 5.25 M/uL 03/01/2023 6:22 AM EDT LAB[facility]ORY [facility] HGB 7.6(L) 14.0 - 16.8 g/dL 03/01/2023 6:22 AM EDT LAB[facility]ORY [facility] HCT 23.3(L) 40.0 - 48.4 % 03/01/2023 6:22 AM EDT LAB[facility]ATORY [facility] MCV 105.4 82.0 - 99.5 fL 03/01/2023 6:22 AM EDT LAB[facility]ATORY [facility] MCH 34.4 27.0 - 34.0 pg 03/01/2023 6:22 AM EDT LABORATORY [facility] MCHC 32.6 32.0 - 36.0 g/dL 03/01/2023 6:22 AM EDT LABORATORY [facility] RDW 14.9 11.5 - 15.5 % 03/01/2023 6:22 AM EDT LABORATORY [facility] PLT 319 140 - 400 K/uL 03/01/2023 6:22 AM EDT LABORATORY [facility] MPV 11.3 6.6 - 11.1 fL 03/01/2023 6:22 AM EDT LABORATORY [facility] nRBCs 0 <=0 /100 WBCs 03/01/2023 6:22 AM EDT LABORATORY [facility] Blood Venous blood specimen / Unknown Venipuncture / Unknown 03/01/2023 5:20 AM EDT 03/01/2023 6:11 AM EDT Angus Vicente MD LAB BLOOD ORD ERABLES LABORATORY [facility] [address] [place] [address] * PHOSPHORUS (03/01/2023 5:20 AM EDT) Phosphorus 3.4 2.5 - 4.8 mg/dL 03/01/2023 6:40 AM EDT LABORATORY [facility] Blood Venous blood specimen / Unknown Venipuncture / Unknown 03/01/2023 5:20 AM EDT 03/01/2023 6:11 AM EDT Ruba Dhillon DO LAB BLOOD ORDER CORINNA LABORATORY [facility] [address] [place] [address] * MAGNESIUM (03/01/2023 5:20 AM EDT) Magnesium 2.2 1.5 - 2.6 mg/dL 03/01/2023 6:40 AM EDT LABORATORY [facility] Blood Venous blood specimen / Unknown Venipuncture / Unknown 03/01/2023 5:20 AM EDT 03/01/2023 6:11 AM EDT Ruba Dhillon DO LAB BLOOD ORDER [facility] LAB[facility]ATORY [facility] [address] [place] [address] * (ABNORMAL) BASIC METABOLIC PANEL (03/01/2023 5:20 AM EDT) BUN 13 6 - 20 mg/dL 03/01/2023 6:40 AM EDT LAB[facility]ATORY [facility] Creatinine 0.7 0.6 - 1.2 mg/dL 03/01/2023 6:40 AM EDT LAB[facility]ATORY [facility] Estimated Glomerular Filtration Rate >90 >=60 mL/min 03/01/2023 6:40 AM EDT LAB[facility]ATORY [facility] Comment:eGFR is calculated b ased on the CKD-EPI 2020 equation Sodium 139 135 - 146 mmol/L 03/01/2023 6:40 AM EDT LAB[facility]ATORY [facility] Potassium 3.6 3.5 - 5.1 mmol/L 03/01/2023 6:40 AM EDT LAB[facility]ATORY [facility] Chloride 108(H) 98 - 107 mmol/L 03/01/2023 6:40 AM EDT LAB[facility]ATORY [facility] CO2 25 22 - 32 mmol/L 03/01/2023 6:40 AM EDT LAB[facility]ORY [facility] Anion Gap 6(L) 7 - 15 mmol/L 03/01/2023 6:40 AM EDT LAB[facility]ATORY [facility] Glucose 84 70 - 120 mg/dL 03/01/2023 6:40 AM EDT LAB[facility]ORY [facility] Calcium 7.8(L) 8.4 - 10.2 mg/dL 03/01/2023 6:40 AM EDT LABORATORY C Blood Venous blood specimen / Unknown Venipuncture / Unknown 03/01/2023 5:20 AM EDT 03/01/2023 6:11 AM EDT Ruba Dhillon DO LAB BLOOD ORDER [facility] [address] [place] [address] * (ABNORMAL) P2Y12 INHIBITOR REACTIVITY (CLOPIDOGREL), VERIFYNOW (03/01/2023 5:20 AM EDT) VerifyNow P2Y12 148(L) 182 - 335 PRU 03/01/2023 6:43 AM EDT LABORATORY [facility] Blood Venous blood specimen / Unknown Venipuncture / Unknown 03/01/2023 5:20 AM EDT 03/01/2023 6:11 AM EDT [facility] LABORATORY [facility] - 03/01/2023 6:43 AM EDT Assay measures the level of platelet P2Y12 [...] clopidogrel usage in these patients is unknown. Lachelle Castanon PA-C LAB BLOOD ORDERAB LES LABORATORY [facility] [address] [place] [address] * (ABNORMAL) CBC (02/28/2023 10:23 PM EDT) Pathologist [facility] WBC 8.36 4.00 - 10.80 K/uL 02/28/2023 10:46 PM EDT LABORATORY [facility] RBC 2.23 4.50 - 5.25 M/uL 02/28/2023 10:46 PM EDT LAB[facility]ORY [facility] HGB 7.7(L) 14.0 - 16.8 g/dL 02/28/2023 10:46 PM EDT LAB[facility]ATORY [facility] HCT 23.1(L) 40.0 - 48.4 % 02/28/2023 10:46 PM EDT LAB[facility]ATORY [facility] MCV 103.6 82.0 - 99.5 fL 02/28/2023 10:46 PM EDT LAB[facility]ORY [facility] MCH 34.5 27.0 - 34.0 pg 02/28/2023 10:46 PM EDT LAB[facility] MCHC 33.3 32.0 - 36.0 g/dL 02/28/2023 10:46 PM EDT LAB[facility]ORY [facility] RDW 14.5 11.5 - 15.5 % 02/28/2023 10:46 PM EDT LAB[facility]ORY [facility] PLT 315 140 - 400 K/uL 02/28/2023 10:46 PM EDT LAB[facility]ORY [facility] MPV 11.0 6.6 - 11.1 fL 02/28/2023 10:46 PM EDT LAB[facility] nRBCs 0 <=0 /100 WBCs 02/28/2023 10:46 PM EDT LAB[facility] Blood Venous blood specimen / Unknown Venipuncture / Unknown 02/28/2023 10:23 PM EDT 02/28/2023 10:27 PM EDT Ruba Dhillon DO LAB BLOOD ORDER CORINNA LABORATORY [facility] [address] [place], [place] [id number] * (ABNORMAL) CBC (02/28/2023 1:15 PM EDT) Pathologist [facility] WBC 8.05 4.00 - 10.80 K/uL 02/28/2023 1:33 PM EDT LAB[facility]ATORY [facility] RBC 2.29 4.50 - 5.25 M/uL 02/28/2023 1:33 PM EDT LAB[facility]ORY [facility] HGB 7.7(L) 14.0 - 16.8 g/dL 02/28/2023 1:33 PM EDT LAB[facility]ORY [facility] HCT 23.8(L) 40.0 - 48.4 % 02/28/2023 1:33 PM EDT LABORATORY [facility] MCV 103.9 82.0 - 99.5 fL 02/28/2023 1:33 PM EDT LABORATORY [facility] MCH 33.6 27.0 - 34.0 pg 02/28/2023 1:33 PM EDT LABORATORY [facility] MCHC 32.4 32.0 - 36.0 g/dL 02/28/2023 1:33 PM EDT LABORATORY [facility] RDW 14.4 11.5 - 15.5 % 02/28/2023 1:33 PM EDT LABORATORY [facility] PLT 315 140 - 400 K/uL 02/28/2023 1:33 PM EDT LABORATORY [facility] MPV 10.9 6.6 - 11.1 fL 02/28/2023 1:33 PM EDT LABORATORY [facility] nRBCs 0 <=0 /100 WBCs 02/28/2023 1:33 PM EDT LABORATORY [facility] Blood Venous blood specimen / Unknown Venipuncture / Unknown 02/28/2023 1:15 PM EDT 02/28/2023 1:20 PM EDT Ruba Dhillon DO LAB BLOOD ORDER [facility] LABORATORY [facility] [address] [place] [address] * (ABNORMAL) P2Y12 INHIBITOR REACTIVITY (CLOPIDOGREL), VERIFYNOW (02/28/2023 8:11 AM EDT) [facility] VerifyNow P2Y12 92(L) 182 - 335 PRU 02/28/2023 8:42 AM EDT LABORATORY [facility] Blood Venous blood specimen / Unknown Venipuncture / Unknown 02/28/2023 8:11 AM EDT 02/28/2023 8:22 AM EDT Narrative LABORATORY [facility] - 02/28/2023 8:42 AM EDT Assay measures the level of platelet P2Y12 [...] clopidogrel usage in these patients is unknown. Michel Coleman MD LAB BLOOD ORDERABLES LABORATORY [facility] [address] [place] [address] * (ABNORMAL) CBC (02/28/2023 4:59 AM EDT) [facility] WBC 9.56 4.00 - 10.80 K/uL 02/28/2023 5:18 AM EDT LABORATORY [facility] RBC 2.48 4.50 - 5.25 M/uL 02/28/2023 5:18 AM EDT LAB[facility]ATORY [facility] HGB 8.4(L) 14.0 - 16.8 g/dL 02/28/2023 5:18 AM EDT LABORATORY [facility] HCT 26.3(L) 40.0 - 48.4 % 02/28/2023 5:18 AM EDT LAB[facility]ATORY [facility] MCV 106.0 82.0 - 99.5 fL 02/28/2023 5:18 AM EDT LAB[facility]ATORY [facility] MCH 33.9 27.0 - 34.0 pg 02/28/2023 5:18 AM EDT LAB[facility]ATORY [facility] MCHC 31.9 32.0 - 36.0 g/dL 02/28/2023 5:18 AM EDT LAB[facility]ORY [facility] RDW 14.3 11.5 - 15.5 % 02/28/2023 5:18 AM EDT LAB[facility]ATORY [facility] PLT 354 140 - 400 K/uL 02/28/2023 5:18 AM EDT LABORATORY [facility] MPV 10.8 6.6 - 11.1 fL 02/28/2023 5:18 AM EDT LABORATORY [facility] nRBCs 0 <=0 /100 WBCs 02/28/2023 5:18 AM EDT LABORATORY [facility] Blood Venous blood specimen / Unknown Venipuncture / Unknown 02/28/2023 4:59 AM EDT 02/28/2023 5:05 AM EDT Angus Vicente MD LAB BLOOD ORD ERABLES LABORATORY [facility] [address] [place] [address] * PHOSPHORUS (02/28/2023 4:59 AM EDT) Phosphorus 3.0 2.5 - 4.8 mg/dL 02/28/2023 5:36 AM EDT LABORATORY C Blood Venous blood specimen / Unknown Venipuncture / Unknown 02/28/2023 4:59 AM EDT 02/28/2023 5:04 AM EDT Ruba Dhillon DO LAB BLOOD ORDER [facility] Performing Organization Address City/[facility] Co de Phone Number LABORATORY [facility] [address] [place] [address] * MAGNESIUM (02/28/2023 4:59 AM EDT) Magnesium 2.3 1.5 - 2.6 mg/dL 02/28/2023 5:36 AM EDT LABORATORY [facility] Blood Venous blood specimen / Unknown Venipuncture / Unknown 02/28/2023 4:59 AM EDT 02/28/2023 5:04 AM EDT Ruba Dhillon DO LAB BLOOD ORDER COR[facility]NA Performing Organization Address City/[facility]/ZIP Co de Phone Number LABORATORY [facility] [address] [place] [address] * (ABNORMAL) BASIC METABOLIC PANEL (02/28/2023 4:59 AM EDT) BUN 10 6 - 20 mg/dL 02/28/2023 5:36 AM EDT LAB[facility]ORY [facility] Creatinine 0.6 0.6 - 1.2 mg/dL 02/28/2023 5:36 AM EDT LAB[facility]ATORY [facility] Estimated Glomerular Filtration Rate >90 >=60 mL/min 02/28/2023 5:36 AM EDT LAB[facility]ATORY [facility] Comment:eGFR is calculated b ased on the CKD-EPI 2020 equation Sodium 136 135 - 146 mmol/L 02/28/2023 5:36 AM EDT LAB[facility]ATORY [facility] Potassium 3.9 3.5 - 5.1 mmol/L 02/28/2023 5:36 AM EDT LAB[facility]ORY [facility] Chloride 103 98 - 107 mmol/L 02/28/2023 5:36 AM EDT LAB[facility] CO2 25 22 - 32 mmol/L 02/28/2023 5:36 AM EDT LAB[facility]ORY [facility] Anion Gap 8 7 - 15 mmol/L 02/28/2023 5:36 AM EDT LABORATORY C Glucose 90 70 - 120 mg/dL 02/28/2023 5:36 AM EDT LAB[facility] Calcium 7.7(L) 8.4 - 10.2 mg/dL 02/28/2023 5:36 AM EDT LABORATORY C Blood Venous blood specimen / Unknown Venipuncture / Unknown 02/28/2023 4:59 AM EDT 02/28/2023 5:04 AM EDT Ruba Dhillon DO LAB BLOOD ORDER CORINNA Performing Organization Address City/State/[facility] Co de Phone Number LABORATORY [facility] [address] [place] [address] * NEURO IR IMAGING (02/27/2023 3:11 PM EDT) Narrative Scheduling, Silent - 02/27/2023 3:12 PM EDT This procedure will not be read by a Radiologist. Please see operative note. Bennett Quevedo MD RAD SPECIAL PROCEDUR ES * POTASSIUM (02/27/2023 10:44 AM EDT) Potassium 4.3 3.5 - 5.1 mmol/L 02/27/2023 11:14 AM EDT LABORATORY [facility] Blood Venous blood specimen / Unknown Venipuncture / Unknown 02/27/2023 10:44 AM EDT 02/27/2023 10:48 AM EDT Jocelyn Sanderson MD LAB BLOOD MALENA WHALEN [facility] Organization Address City/State/ZIP Co de Phone Number LABORATORY [facility] [address] [place] [address] * (ABNORMAL) CBC (02/27/2023 4:33 AM EDT) Pathologist [facility] WBC 9.11 4.00 - 10.80 K/uL 02/27/2023 4:47 AM EDT LABORATORY GM RBC 3.09 4.50 - 5.25 M/uL 02/27/2023 4:47 AM EDT LAB[facility]ATORY [facility] HGB 10.5(L) 14.0 - 16.8 g/dL 02/27/2023 4:47 AM EDT LAB[facility]ORY [facility] HCT 30.9(L) 40.0 - 48.4 % 02/27/2023 4:47 AM EDT LAB[facility]ATORY [facility] MCV 100.0 82.0 - 99.5 fL 02/27/2023 4:47 AM EDT LAB[facility]ATORY [facility] MCH 34.0 27.0 - 34.0 pg 02/27/2023 4:47 AM EDT LAB[facility]ORY [facility] MCHC 34.0 32.0 - 36.0 g/dL 02/27/2023 4:47 AM EDT LAB[facility]ATORY [facility] RDW 14.6 11.5 - 15.5 % 02/27/2023 4:47 AM EDT LABORATORY [facility] PLT 372 140 - 400 K/uL 02/27/2023 4:47 AM EDT LAB[facility]ORY [facility] MPV 10.9 6.6 - 11.1 fL 02/27/2023 4:47 AM EDT LAB[facility]ATORY [facility] nRBCs 0 <=0 /100 WBCs 02/27/2023 4:47 AM EDT LABORATORY [facility] Blood Venous blood specimen / Unknown Capillary / Unknown 02/27/2023 4:33 AM EDT 02/27/2023 4:38 AM EDT Angus Vicente MD LAB BLOOD ORD ERABLES Performing Organization Address [facility] Co de Phone Number LABORATORY [facility] [address] [place] [address] * PHOSPHORUS (02/27/2023 4:33 AM EDT) Phosphorus 3.1 2.5 - 4.8 mg/dL 02/27/2023 5:17 AM EDT LABORATORY [facility] Blood Venous blood specimen / Unknown Capillary / Unknown 02/27/2023 4:33 AM EDT 02/27/2023 4:38 AM EDT Ruba Dhillon DO LAB BLOOD ORDER CORINNA Performing Organization Address [facility] de Phone Number LABORATORY [facility] [address] [place] [address] * MAGNESIUM (02/27/2023 4:33 AM EDT) Magnesium 2.3 1.5 - 2.6 mg/dL 02/27/2023 5:17 AM EDT LABORATORY C Blood Venous blood specimen / Unknown Capillary / Unknown 02/27/2023 4:33 AM EDT 02/27/2023 4:38 AM EDT Ruba Dhillon DO LAB BLOOD ORDER CORINNA Performing Organization Address [facility] de Phone Number LABORATORY [facility] [address] [place] [address] * (ABNORMAL) BASIC METABOLIC PANEL (02/27/2023 4:33 AM EDT) BUN 14 6 - 20 mg/dL 02/27/2023 5:17 AM EDT LABORATORY GM Creatinine 0.8 0.6 - 1.2 mg/dL 02/27/2023 5:17 AM EDT LABORATORY [facility] Estimated Glomerular Filtration Rate 89 >=60 mL/min 02/27/2023 5:17 AM EDT LABORATORY [facility] Comment:eGFR is calculated b ased on the CKD-EPI 2020 equation Sodium 138 135 - 146 mmol/L 02/27/2023 5:17 AM EDT LABORATORY [facility] Potassium 5.3(H) 3.5 - 5.1 mmol/L 02/27/2023 5:17 AM EDT LABORATORY [facility] Chloride 108(H) 98 - 107 mmol/L 02/27/2023 5:17 AM EDT LABORATORY C CO2 21(L) 22 - 32 mmol/L 02/27/2023 5:17 AM EDT LABORATORY [facility] Anion Gap 9 7 - 15 mmol/L 02/27/2023 5:17 AM EDT [facility] Glucose 88 70 - 120 mg/dL 02/27/2023 5:17 AM EDT LAB[facility]ORY [facility] Calcium 8.4 8.4 - 10.2 mg/dL 02/27/2023 5:17 AM EDT LAB[facility]ATORY [facility] Blood Venous blood specimen / Unknown Capillary / Unknown 02/27/2023 4:33 AM EDT 02/27/2023 4:38 AM EDT Ruba Dhillon DO LAB BLOOD ORDER [facility] [facility] [address] [place] [address] * (ABNORMAL) P2Y12 INHIBITOR REACTIVITY (CLOPIDOGREL), VERIFYNOW (02/26/2023 2:42 PM EDT) [facility] VerifyNow P2Y12 13(L) 182 - 335 PRU 02/26/2023 3:13 PM EDT LABORATORY [facility] Blood Venous blood specimen / Unknown Venipuncture / Unknown 02/26/2023 2:42 PM EDT 02/26/2023 2:52 PM EDT Narrative LAB[facility]ATORY [facility] - 02/26/2023 3:13 PM EDT Assay measures the level of platelet P2Y12 [...] clopidogrel usage in these patients is unknown. Michel Coleman MD LAB BLOOD ORDERABLES LAB[facility]ATORY [facility] [address] [place] [address] * (ABNORMAL) CBC (02/26/2023 4:48 AM EDT) WBC 6.15 4.00 - 10.80 K/uL 02/26/2023 5:04 AM EDT LABORATORY GM RBC 2.93 4.50 - 5.25 M/uL 02/26/2023 5:04 AM EDT LAB[facility]ORY [facility] HGB 9.8(L) 14.0 - 16.8 g/dL 02/26/2023 5:04 AM EDT LAB[facility]ATORY [facility] HCT 30.1(L) 40.0 - 48.4 % 02/26/2023 5:04 AM EDT LAB[facility]ORY [facility] MCV 102.7 82.0 - 99.5 fL 02/26/2023 5:04 AM EDT LABORATORY GM MCH 33.4 27.0 - 34.0 pg 02/26/2023 5:04 AM EDT [facility]ORY [facility] MCHC 32.6 32.0 - 36.0 g/dL 02/26/2023 5:04 AM EDT LAB[facility]ATORY [facility] RDW 14.4 11.5 - 15.5 % 02/26/2023 5:04 AM EDT LAB[facility]ORY [facility] PLT 332 140 - 400 K/uL 02/26/2023 5:04 AM EDT LAB[facility]ORY [facility] MPV 10.6 6.6 - 11.1 fL 02/26/2023 5:04 AM EDT LAB[facility]ORY [facility] nRBCs 0 <=0 /100 WBCs 02/26/2023 5:04 AM EDT LAB[facility]ATORY [facility] Blood Venous blood specimen / Unknown Venipuncture / Unknown 02/26/2023 4:48 AM EDT 02/26/2023 4:54 AM EDT Angus Vicente MD LAB BLOOD ORD ERABLES LAB[facility]ATORY [facility] [address] [place] [address] * PHOSPHORUS (02/26/2023 4:48 AM EDT) Phosphorus 2.6 2.5 - 4.8 mg/dL 02/26/2023 5:31 AM EDT LABORATORY C Blood Venous blood specimen / Unknown Venipuncture / Unknown 02/26/2023 4:48 AM EDT 02/26/2023 4:54 AM EDT Ruba Dhillon DO LAB BLOOD ORDER CORINNA Performing Organization Address City/[facility]/ZIP Co de Phone Number LABORATORY [facility] [address] [place] [address] * MAGNESIUM (02/26/2023 4:48 AM EDT) Magnesium 2.5 1.5 - 2.6 mg/dL 02/26/2023 5:31 AM EDT LABORATORY [facility] Blood Venous blood specimen / Unknown Venipuncture / Unknown 02/26/2023 4:48 AM EDT 02/26/2023 4:54 AM EDT Ruba Dhillon DO LAB BLOOD ORDER CORINNA Performing Organization Address City/[facility]/ZIP Co de Phone Number LABORATORY [facility] [address] [place] [address] * (ABNORMAL) BASIC METABOLIC PANEL (02/26/2023 4:48 AM EDT) BUN 9 6 - 20 mg/dL 02/26/2023 5:31 AM EDT LABORATORY G[facility] Creatinine 0.6 0.6 - 1.2 mg/dL 02/26/2023 5:31 AM EDT LABORATORY GMC Estimated Glomerular Filtration Rate >90 >=60 mL/min 02/26/2023 5:31 AM EDT LABORATORY C Comment:eGFR is calculated b ased on the CKD-EPI 2020 equation Sodium 138 135 - 146 mmol/L 02/26/2023 5:31 AM EDT LABORATORY GMC Potassium 3.6 3.5 - 5.1 mmol/L 02/26/2023 5:31 AM EDT LABORATORY GMC Chloride 105 98 - 107 mmol/L 02/26/2023 5:31 AM EDT LABORATORY GMC CO2 25 22 - 32 mmol/L 02/26/2023 5:31 AM EDT LABORATORY GMC Anion Gap 8 7 - 15 mmol/L 02/26/2023 5:31 AM EDT LABORATORY GMC Glucose 79 70 - 120 mg/dL 02/26/2023 5:31 AM EDT LABORATORY GMC Calcium 8.3(L) 8.4 - 10.2 mg/dL 02/26/2023 5:31 AM EDT LABORATORY C Blood Venous blood specimen / Unknown Venipuncture / Unknown 02/26/2023 4:48 AM EDT 02/26/2023 4:54 AM EDT Ruba Dhillon DO LAB BLOOD ORDER CORINNA LABORATORY [facility] [address] [place] [address] * PHOSPHORUS (02/25/2023 7:24 AM EDT) Phosphorus 2.9 2.5 - 4.8 mg/dL 02/25/2023 8:29 AM EDT LABORATORY GMC Blood Venous blood specimen / Unknown Venipuncture / Unknown 02/25/2023 7:24 AM EDT 02/25/2023 7:28 AM EDT Ruba Dhillon DO LAB BLOOD ORDER CORINNA Performing Organization Address City/[facility]/ZIP Co de Phone Number LABORATORY [facility] [address] [place] [address] * MAGNESIUM (02/25/2023 7:24 AM EDT) Magnesium 2.4 1.5 - 2.6 mg/dL 02/25/2023 8:29 AM EDT LABORATORY C Blood Venous blood specimen / Unknown Venipuncture / Unknown 02/25/2023 7:24 AM EDT 02/25/2023 7:28 AM EDT Ruba Dhillon DO LAB BLOOD ORDER CORINNA Performing Organization Address [facility] Co de Phone Number LABORATORY [facility] [address] [place] [address] * (ABNORMAL) BASIC METABOLIC PANEL (02/25/2023 7:24 AM EDT) BUN 10 6 - 20 mg/dL 02/25/2023 8:29 AM EDT LABORATORY G[facility] Creatinine 0.6 0.6 - 1.2 mg/dL 02/25/2023 8:29 AM EDT LABORATORY G[facility] Estimated Glomerular Filtration Rate >90 >=60 mL/min 02/25/2023 8:29 AM EDT LABORATORY G[facility] Comment:eGFR is calculated b ased on the CKD-EPI 2020 equation Sodium 136 135 - 146 mmol/L 02/25/2023 8:29 AM EDT LABORATORY G[facility] Potassium 4.7 3.5 - 5.1 mmol/L 02/25/2023 8:29 AM EDT LABORATORY G[facility] Chloride 104 98 - 107 mmol/L 02/25/2023 8:29 AM EDT LABORATORY G[facility] CO2 20(L) 22 - 32 mmol/L 02/25/2023 8:29 AM EDT LABORATORY G[facility] Anion Gap 12 7 - 15 mmol/L 02/25/2023 8:29 AM EDT LABORATORY G[facility] Glucose 80 70 - 120 mg/dL 02/25/2023 8:29 AM EDT LABORATORY G[facility] Calcium 8.4 8.4 - 10.2 mg/dL 02/25/2023 8:29 AM EDT LABORATORY G[facility] Blood Venous blood specimen / Unknown Venipuncture / Unknown 02/25/2023 7:24 AM EDT 02/25/2023 7:28 AM EDT Ruba Hollisjenny Dhillon DO LAB BLOOD ORDER CORINNA Performing Organization Address City/[facility]/ZIP Co de Phone Number LABORATORY [facility] [address] [place] [address] * (ABNORMAL) TROPONIN T, HIGH SENSITIVITY (02/25/2023 7:24 AM EDT) Pathologist [facility] Troponin T, High Sensitivity 57(H) <=22 ng/L 02/25/2023 8:29 AM EDT LABORATORY G[facility] Blood Venous blood specimen / Unknown Venipuncture / Unknown 02/25/2023 7:24 AM EDT 02/25/2023 7:28 AM EDT Rubawilliam Dhillon DO LAB BLOOD ORDER CORINNA Performing Organization Address [facility] Co de Phone Number LABORATORY [facility] [address] [place] [address] * (ABNORMAL) CBC (02/25/2023 7:09 AM EDT) WBC 8.09 4.00 - 10.80 K/uL 02/25/2023 7:39 AM EDT LABORATORY G[facility] RBC 2.94 4.50 - 5.25 M/uL 02/25/2023 7:39 AM EDT LABORATORY G[facility] HGB 10.6(L) 14.0 - 16.8 g/dL 02/25/2023 7:39 AM EDT LABORATORY G[facility] HCT 29.6(L) 40.0 - 48.4 % 02/25/2023 7:39 AM EDT LABORATORY G[facility] MCV 100.7 82.0 - 99.5 fL 02/25/2023 7:39 AM EDT LABORATORY G[facility] MCH 36.1 27.0 - 34.0 pg 02/25/2023 7:39 AM EDT LABORATORY G[facility] MCHC 35.8 32.0 - 36.0 g/dL 02/25/2023 7:39 AM EDT LABORATORY [facility] RDW 14.4 11.5 - 15.5 % 02/25/2023 7:39 AM EDT LABORATORY [facility] PLT 331 140 - 400 K/uL 02/25/2023 7:39 AM EDT LABORATORY [facility] MPV 11.3 6.6 - 11.1 fL 02/25/2023 7:39 AM EDT LABORATORY [facility] nRBCs 0 <=0 /100 WBCs 02/25/2023 7:39 AM EDT LABORATORY [facility] Blood Venous blood specimen / Unknown 02/25/2023 7:09 AM EDT 02/25/2023 7:23 AM EDT Angus Vicente MD LAB BLOOD ORD ERABLES LABORATORY [facility] [address] [place] [address] * (ABNORMAL) TROPONIN T, HIGH SENSITIVITY (02/24/2023 11:16 PM EDT) Troponin T, High Sensitivity 53(H) <=22 ng/L 02/24/2023 11:46 PM EDT LABORATORY [facility] Blood Venous blood specimen / Unknown Venipuncture / Unknown 02/24/2023 11:16 PM EDT 02/24/2023 11:19 PM EDT Ruba Dhillon DO LAB BLOOD ORDER CORINNA LABORATORY [facility] [address] [place] [address] * (ABNORMAL) TROPONIN T, HIGH SENSITIVITY (02/24/2023 4:49 PM EDT) Troponin T, High Sensitivity 46(H) <=22 ng/L 02/24/2023 5:30 PM EDT LABORATORY [facility] Blood Venous blood specimen / Unknown Venipuncture / Unknown 02/24/2023 4:49 PM EDT 02/24/2023 5:06 PM EDT Ruba Dhillon DO LAB BLOOD ORDER CORINNA LABORATORY [facility] [address] [place] [address] * (ABNORMAL) GLUCOSE METER, POINT OF CARE (02/24/2023 4:03 PM EDT) Pathologist [facility] Glucose Meter 153(H) 70 - 120 mg/dL 02/24/2023 4:06 PM EDT [facility] Blood Whole blood specimen / Unknown 02/24/2023 4:03 PM EDT 02/24/2023 4:06 PM EDT Angus Vicente MD LAB POINT OF CARE TEST DOCKED DEVICE UNSOLICITED RESULTS Performing Organization Address [facility] Co de Phone Number [facility] [address] [place] [address] * ECHO, COMPLETE (2D), TRANS-THORACIC (02/24/2023 4:02 PM EDT) [facility] LEFT VENTRICULAR EJECTION FRACTION 50 % [facility] CARDIOLOGY 02/24/2023 2:35 PM EDT Ruba Dhillon DO ECHOCARDIOLOGY Performing Organization Address [facility] Co de Phone Number [facility] CARDIOLOGY * DIFFERENTIAL, TECHNOLOGIST REVIEW (02/24/2023 12:03 PM EDT) Blood Venous blood specimen / Unknown Venipuncture / Unknown 02/24/2023 12:03 PM EDT 02/24/2023 12:19 PM EDT Ruba Dhillon DO LAB BLOOD ORDER CORINNA LABORATORY [facility] [address] [place] [address] * ABO/RH (02/24/2023 12:03 PM EDT) Pathologist [facility] ABO B 02/24/2023 1:04 PM EDT LABORATORY [facility] BLOOD BANK Rh Positive 02/24/2023 1:04 PM EDT LABORATORY [facility] BLOOD BANK Blood Venous blood specimen / Unknown Venipuncture / Unknown 02/24/2023 12:03 PM EDT 02/24/2023 12:16 PM EDT [facility] TEST ORDERABLES Performing Organization Address City/[facility]/ZIP Co de Phone Number LABORATORY [facility] BLOOD BANK [address] [place] [address] * (ABNORMAL) LACTATE (02/24/2023 12:03 PM EDT) Pathologist [facility] Lactate 2.2(H) 0.4 - 2.0 mmol/L 02/24/2023 12:44 PM EDT LABORATORY [facility] Blood Venous blood specimen / Unknown Venipuncture / Unknown 02/24/2023 12:03 PM EDT 02/24/2023 12:19 PM EDT Ruba Génesis Dhillon LAB BLOOD ORDER CORINNA Performing Organization Address [facility] Co de Phone Number LABORATORY [facility] [address] [place] [address] * (ABNORMAL) DIFFERENTIAL, AUTOMATED (02/24/2023 12:03 PM EDT) Pathologist [facility] WBC 6.21 4.00 - 10.80 K/uL 02/25/2023 3:34 AM EDT LABORATORY GMC Neutrophils % 85.8(H) 40.0 - 75.0 % 02/25/2023 3:34 AM EDT LABORATORY GMC Lymphocytes % 10.5(L) 18.0 - 42.0 % 02/25/2023 3:34 AM EDT LABORATORY GMC Monocytes % 2.6 1.0 - 11.0 % 02/25/2023 3:34 AM EDT LABORATORY GMC Eosinophils % 0.6 0.0 - 6.0 % 02/25/2023 3:34 AM EDT LABORATORY GMC Basophils % 0.2 0.0 - 2.0 % 02/25/2023 3:34 AM EDT LABORATORY GMC Immature Granulocytes % 0.3 0.0 - 2.0 % 02/25/2023 3:34 AM EDT LABORATORY G[facility] Absolute Neutrophils 5.33 1.80 - 7.70 K/uL 02/25/2023 3:34 AM EDT LABORATORY G[facility] Absolute Lymphocytes 0.65(L) 1.00 - 4.80 K/ul 02/25/2023 3:34 AM EDT LABORATORY GMC Absolute Monocytes 0.16 0.00 - 1.10 K/uL 02/25/2023 3:34 AM EDT LABORATORY G[facility] Absolute Eosinophils 0.04 0.00 - 0.70 K/uL 02/25/2023 3:34 AM EDT LABORATORY G[facility] Absolute Basophils 0.01 0.00 - 0.20 K/uL 02/25/2023 3:34 AM EDT LABORATORY GMC Absolute Immature Granulocytes 0.02 0.00 - 0.20 K/uL 02/25/2023 3:34 AM EDT LABORATORY GMC Blood Venous blood specimen / Unknown Venipuncture / Unknown 02/24/2023 12:03 PM EDT 02/24/2023 12:19 PM EDT Ruba Dhillon DO LAB BLOOD ORDER CORINNA LABORATORY [facility] [address] [place] [address] * (ABNORMAL) CBC (02/24/2023 12:03 PM EDT) [facility] WBC 6.21 4.00 - 10.80 K/uL 02/24/2023 12:49 PM EDT LABORATORY GMC RBC 2.81 4.50 - 5.25 M/uL 02/24/2023 12:49 PM EDT LABORATORY GMC HGB 9.6(L) 14.0 - 16.8 g/dL 02/24/2023 12:49 PM EDT LABORATORY GMC HCT 29.3(L) 40.0 - 48.4 % 02/24/2023 12:49 PM EDT LABORATORY GMC MCV 104.3 82.0 - 99.5 fL 02/24/2023 12:49 PM EDT LABORATORY [facility] MCH 34.2 27.0 - 34.0 pg 02/24/2023 12:49 PM EDT LABORATORY [facility] MCHC 32.8 32.0 - 36.0 g/dL 02/24/2023 12:49 PM EDT LABORATORY [facility] RDW 14.3 11.5 - 15.5 % 02/24/2023 12:49 PM EDT LABORATORY [facility] PLT 314 140 - 400 K/uL 02/24/2023 12:49 PM EDT LABORATORY [facility] MPV 11.1 6.6 - 11.1 fL 02/24/2023 12:49 PM EDT LABORATORY [facility] nRBCs 0 <=0 /100 WBCs 02/24/2023 12:49 PM EDT LABORATORY [facility] Blood Venous blood specimen / Unknown Venipuncture / Unknown 02/24/2023 12:03 PM EDT 02/24/2023 12:19 PM EDT Ruba Dhillon DO LAB BLOOD ORDER CORINNA LABORATORY [facility] [address] [place] [address] * PHOSPHORUS (02/24/2023 12:03 PM EDT) Phosphorus 2.6 2.5 - 4.8 mg/dL 02/24/2023 12:49 PM EDT LABORATORY GMC Blood Venous blood specimen / Unknown Venipuncture / Unknown 02/24/2023 12:03 PM EDT 02/24/2023 12:19 PM EDT Ruba Dhillon LAB BLOOD ORDER CORINNA LABORATORY [facility] [address] [place] [address] * MAGNESIUM (02/24/2023 12:03 PM EDT) Magnesium 2.2 1.5 - 2.6 mg/dL 02/24/2023 12:49 PM EDT LABORATORY C Blood Venous blood specimen / Unknown Venipuncture / Unknown 02/24/2023 12:03 PM EDT 02/24/2023 12:19 PM EDT Ruba Dhillon DO LAB BLOOD ORDER CORINNA LABORATORY [facility] [address] [place] [address] * (ABNORMAL) BASIC METABOLIC PANEL (02/24/2023 12:03 PM EDT) Pathologist [facility] BUN 15 6 - 20 mg/dL 02/24/2023 12:49 PM EDT LABORATORY G[facility] Creatinine 0.6 0.6 - 1.2 mg/dL 02/24/2023 12:49 PM EDT LABORATORY G[facility] Estimated Glomerular Filtration Rate >90 >=60 mL/min 02/24/2023 12:49 PM EDT LABORATORY GMC Comment:eGFR is calculated b ased on the CKD-EPI 2020 equation Sodium 137 135 - 146 mmol/L 02/24/2023 12:49 PM EDT LABORATORY G[facility] Potassium 3.9 3.5 - 5.1 mmol/L 02/24/2023 12:49 PM EDT LABORATORY G[facility] Chloride 102 98 - 107 mmol/L 02/24/2023 12:49 PM EDT LABORATORY G[facility] CO2 24 22 - 32 mmol/L 02/24/2023 12:49 PM EDT LABORATORY G[facility] Anion Gap 11 7 - 15 mmol/L 02/24/2023 12:49 PM EDT LABORATORY G[facility] Glucose 174(H) 70 - 120 mg/dL 02/24/2023 12:49 PM EDT LABORATORY G[facility] Calcium 8.0(L) 8.4 - 10.2 mg/dL 02/24/2023 12:49 PM EDT LABORATORY C Blood Venous blood specimen / Unknown Venipuncture / Unknown 02/24/2023 12:03 PM EDT 02/24/2023 12:19 PM EDT Ruba Dhillon DO LAB BLOOD ORDER CORINNA Performing Organization Address City/[facility]/ZIP Co de Phone Number LABORATORY [facility] [address] [place] [address] * TYPE AND SCREEN (02/24/2023 12:03 PM EDT) ABO B 02/24/2023 1:04 PM EDT LABORATORY [facility] BLOOD BANK Rh Positive 02/24/2023 1:04 PM EDT LABORATORY [facility] BLOOD BANK Red Blood Cell Antibody Screen Negative 02/24/2023 1:04 PM EDT LABORATORY [facility] BLOOD BANK Specimen Expiration Date 02/27/2023 23:59 02/24/2023 1:04 PM EDT LABORATORY [facility] BLOOD BANK Blood Venous blood specimen / Unknown Venipuncture / Unknown 02/24/2023 12:03 PM EDT 02/24/2023 12:16 PM EDT Ruba Dhillon DO LAB BLOOD BANK TEST ORDERABLES LABORATORY [facility] BLOOD BANK [address] [place] [address] * CK-MB (02/24/2023 12:03 PM EDT) CK-MB 3.7 0.0 - 7.7 ng/mL 02/24/2023 12:49 PM EDT LABORATORY [facility] Blood Venous blood specimen / Unknown Venipuncture / Unknown 02/24/2023 12:03 PM EDT 02/24/2023 12:19 PM EDT Ruba Dhillon DO LAB BLOOD ORDER CORINNA LABORATORY [facility] [address] [place] [address] * CK (02/24/2023 12:03 PM EDT) CK 63 39 - 308 U/L 02/24/2023 12:49 PM EDT LABORATORY [facility] Blood Venous blood specimen / Unknown Venipuncture / Unknown 02/24/2023 12:03 PM EDT 02/24/2023 12:19 PM EDT Ruba Dhillon DO LAB BLOOD ORDER CORINNA LABORATORY [facility] [address] [place] [address] * (ABNORMAL) TROPONIN T, HIGH SENSITIVITY (02/24/2023 12:03 PM EDT) Troponin T, High Sensitivity 52(H) <=22 ng/L 02/24/2023 12:49 PM EDT LABORATORY [facility] Blood Venous blood specimen / Unknown Venipuncture / Unknown 02/24/2023 12:03 PM EDT 02/24/2023 12:19 PM EDT Ruba Dhillon DO LAB BLOOD ORDER CORINNA Performing Organization Address [facility] Co de Phone Number LABORATORY [facility] [address] [place] [address] * NEURO IR IMAGING (02/24/2023 10:50 AM EDT) Narrative Scheduling, Silent - 02/24/2023 10:51 AM EDT This procedure will not be read by a Radiologist. Please see operative note. Bennett Quevedo MD [facility] SPECIAL PROCEDUR ES * GLUCOSE METER, POINT OF CARE (02/24/2023 9:01 AM EDT) Glucose Meter 86 70 - 120 mg/dL 02/24/2023 9:10 AM EDT [employer] [facility] [employer] Blood Whole blood specimen / Unknown 02/24/2023 9:01 AM EDT 02/24/2023 9:10 AM EDT Barber Bustamante MD LAB POINT OF CA RE TEST DOCKED DEVICE UNSOLICITED RESULTS Performing Organization Address City/[facility]/ZIP Co de Phone Number [facility] [address] [place] [address] * BASIC METABOLIC PANEL (02/24/2023 6:35 AM EDT) BUN 15 6 - 20 mg/dL 02/24/2023 7:03 AM EDT LABORATORY [facility] Creatinine 0.6 0.6 - 1.2 mg/dL 02/24/2023 7:03 AM EDT LABORATORY G[facility] Estimated Glomerular Filtration Rate >90 >=60 mL/min 02/24/2023 7:03 AM EDT LABORATORY GMC Comment:eGFR is calculated b ased on the CKD-EPI 2020 equation Sodium 139 135 - 146 mmol/L 02/24/2023 7:03 AM EDT LABORATORY [facility] Potassium 3.8 3.5 - 5.1 mmol/L 02/24/2023 7:03 AM EDT LABORATORY G[facility] Chloride 104 98 - 107 mmol/L 02/24/2023 7:03 AM EDT LABORATORY G[facility] CO2 27 22 - 32 mmol/L 02/24/2023 7:03 AM EDT LABORATORY G[facility] Anion Gap 8 7 - 15 mmol/L 02/24/2023 7:03 AM EDT LABORATORY [facility] Glucose 100 70 - 120 mg/dL 02/24/2023 7:03 AM EDT LABORATORY [facility] Calcium 8.8 8.4 - 10.2 mg/dL 02/24/2023 7:03 AM EDT LABORATORY G[facility] Blood Venous blood specimen / Unknown Capillary / Unknown 02/24/2023 6:35 AM EDT 02/24/2023 6:39 AM EDT Ruba Dhillon DO LAB BLOOD ORDER CORINNA LABORATORY [facility] [address] [place] [address] * (ABNORMAL) CBC (02/24/2023 6:35 AM EDT) WBC 7.62 4.00 - 10.80 K/uL 02/24/2023 6:53 AM EDT LABORATORY [facility] RBC 3.04 4.50 - 5.25 M/uL 02/24/2023 6:53 AM EDT LABORATORY [facility] HGB 10.3(L) 14.0 - 16.8 g/dL 02/24/2023 6:53 AM EDT LABORATORY [facility] HCT 30.5(L) 40.0 - 48.4 % 02/24/2023 6:53 AM EDT LABORATORY [facility] MCV 100.3 82.0 - 99.5 fL 02/24/2023 6:53 AM EDT LABORATORY [facility] MCH 33.9 27.0 - 34.0 pg 02/24/2023 6:53 AM EDT LABORATORY [facility] MCHC 33.8 32.0 - 36.0 g/dL 02/24/2023 6:53 AM EDT LABORATORY [facility] RDW 13.9 11.5 - 15.5 % 02/24/2023 6:53 AM EDT LABORATORY [facility] PLT 334 140 - 400 K/uL 02/24/2023 6:53 AM EDT LABORATORY [facility] MPV 11.1 6.6 - 11.1 fL 02/24/2023 6:53 AM EDT LABORATORY [facility] nRBCs 0 <=0 /100 WBCs 02/24/2023 6:53 AM EDT LABORATORY [facility] Blood Venous blood specimen / Unknown Capillary / Unknown 02/24/2023 6:35 AM EDT 02/24/2023 6:39 AM EDT Ruba Dhillon DO LAB BLOOD ORDER CORINNA Performing Organization Address City/State/[facility] Co de Phone Number LABORATORY [facility] [address] [place] [address] * EEG [facility] MONITORING (02/24/2023) Denise Landers TECH - 02/24/2023 [facility] MONITORING-NEUROPHYSIOLOGY COMMENTS: NAME: James Ibarra MEDS: Tegretol, valium, MACHINE: LTM 01 HISTORY: 82 year old male with PMHx cardiac arrest 2001, s/p pacemaker, [place], CHF, history of epilepsy/"spells" since his cardiac arrest which are being treated with Tegretol 200mg TID. DATE/TIME STARTED: 02/22@171 .DATE/TIME ENDED: 02/24@0814 DAY:1 DATE: 02/22-02/23 TIME: [id number] PB/EVENTS: COMMENTS: Abnormal: This EEG is abnormal due to the presence of: 1. Moderate generalized slowing, indicative of nonspecific global dysfunction. 2. Rare runs of triphasic waves, a marker of encephalopathy REPORTING PHYS: arc BILLING:hookup charge, 24h 02/23 DAY: 2 DATE: 02/23-02/24 TIME:[id number] PB/EVENTS: COMMENTS: diffuse slow, triphasic discharges, right temporal sharps/arc,[id number] Abnormal: This EEG is abnormal due to the presence of: 1. Moderate generalized slowing, indicative of nonspecific global dysfunction. 2. Frequent runs of triphasic waves, a marker of encephalopathy REPORTING PHYS:ARC BILLINh 02/24 Jhon Oswald MD MEDICINE * ASPIRIN, VERIFYNOW (02/23/2023 2:02 PM EDT) [facility] VerifyNow Aspirin [phone] >=550 ARU 02/23/2023 3:30 PM EDT LABORATORY [facility] Blood Venous blood specimen / Unknown Venipuncture / Unknown 02/23/2023 2:02 PM EDT 02/23/2023 2:09 PM EDT Narrative LABORATORY [facility] - 02/23/2023 3:30 PM EDT Assay designed to measure the effect of aspirin and it should not [...] aspirin usage in these patients is unknown. Adelia Burkett DO LAB BLOOD ORDERABLES Performing Organization Address City/[facility]/ZIP Co de Phone Number LABORATORY [facility] [address] [place] [address] * (ABNORMAL) P2Y12 INHIBITOR REACTIVITY (CLOPIDOGREL), VERIFYNOW (02/23/2023 2:02 PM EDT) VerifyNow P2Y12 82(L) 182 - 335 PRU 02/23/2023 3:29 PM EDT LABORATORY [facility] Blood Venous blood specimen / Unknown Venipuncture / Unknown 02/23/2023 2:02 PM EDT 02/23/2023 2:09 PM EDT Narrative LABORATORY [facility] - 02/23/2023 3:29 PM EDT Assay measures the level of platelet P2Y12 [...] clopidogrel usage in these patients is unknown. Adeliajewel Burkett DO LAB BLOOD ORDERABLES Performing Organization Address City/[facility]/ZIP Co de Phone Number LABORATORY [facility] [address] [place] [address] * CT HEAD/BRAIN WO CONTRAST (02/23/2023 8:07 AM EDT) Anatomical Region Laterality Modality Head Computed Tomogra phy 02/23/2023 8:28 AM EDT Impressions 02/23/2023 8:25 AM EDT IMPRESSION: No evidence of large, acute territorial infarction or intracranial hemorrhage. Small chronic infarction within the head of the left caudate nucleus/sumner radiata. Chronic microvascular white matter disease and parenchymal volume loss. Narrative 02/23/2023 8:25 AM EDT EXAM: CT HEAD WITHOUT CONTRAST - 02/23/2023 8:07 am HISTORY: Seizure-like episodes TECHNIQUE: CT of the head was performed without intravenous contrast. Multiplanar reformats were generated. COMPARISON: CT head 02/21/2023 FINDINGS: No evidence of large, acute territorial infarction or intracranial hemorrhage. Chronic infarction within the head of the left caudate nucleus/anterior sumner radiata. Patchy and confluent areas of low attenuation throughout the periventricular, subcortical, and deep white matter which are nonspecific but likely related to chronic microvascular disease. Diffuse parenchymal volume loss with proportionate ventricular and sulcal prominence. No hydrocephalus. No extra-axial fluid collections. Intracranial atherosclerotic calcifications. Right maxillary sinus mucous retention cyst. The paranasal sinuses and mastoid air cells are otherwise clear. Bilateral lens replacement. Multiple scalp electrodes in place. No calvarial fracture. Procedure Note Antonio Stinson MD - 02/23/2023 EXAM: CT HEAD WITHOUT CONTRAST - 02/23/2023 8:07 am HISTORY: Seizure-like episodes TECHNIQUE: CT of the head was performed without intravenous contrast. Multiplanarreformats were generated. COMPARISON: CT head 02/21/2023 FINDINGS: No evidence of large, acute territorial infarction or intracranialhemorrhage. Chronic infarction within the head of the left caudatenucleus/anterior sumner radiata. Patchy and confluent areas of lowattenuation throughout the periventricular, subcortical, and deep whitematter which are nonspecific but likely related to chronic microvasculardisease. Diffuse parenchymal volume loss with proportionate ventricular and sulcalprominence. No hydrocephalus. No extra-axial fluid collections.Intracranial atherosclerotic calcifications. Right maxillary sinus mucous retention cyst. The paranasal sinuses andmastoid air cells are otherwise clear. Bilateral lens replacement.Multiple scalp electrodes in place. No calvarial fracture. IMPRESSION IMPRESSION: No evidence of large, acute territorial infarction or intracranialhemorrhage. Small chronic infarction within the head of the left caudatenucleus/sumner radiata. Chronic microvascular white matter disease andparenchymal volume loss. Jhon Oswald MD RAD CT * LIPID PANEL WITH DIRECT LDL IF TG IS HIGH (02/23/2023 7:27 AM EDT) Triglycerides 97 <=174 mg/dL 02/24/2023 9:24 AM EDT [facility] [facility] [place] Comment: Triglyceride Reference Ranges (mg/dL): <150 Acceptable 150-174 Borderline high 175-499 High >=500 Very high Cholesterol 157 <200 mg/dL 02/24/2023 9:24 AM EDT [facility] [place] Comment: Total Cholesterol Reference Ranges (mg/dL): <200 Desirable 200-239 Borderline high >=240 High HDL Cholesterol 65 >39 mg/dL 9:24 AM EDT [facility] [place] Comment: HDL Cholesterol Reference Ranges (mg/dL): >=60 High (Desirable) <50 Low (Undesirable) For Females <40 Low (Undesirable) For Males Non-HDL Cholesterol 92 <=159 mg/dL 02/24/2023 9:24 AM EDT [facility] [place] Comment: Non-HDL Cholesterol Reference Range (mg/dL): <100 Target level for high risk ASCVD patient <130 Optimal for general population 130-159 Near optimal for general population 160-189 Borderline High 190-219 High >=220 Very High LDL Cholesterol 73 <=129 mg/dL 02/24/2023 9:24 AM EDT [facility] [place] Comment: LDL Cholesterol Reference Ranges (mg/dL): <70 Target level for high risk ASCVD patient <100 Optimal for general population 100-129 Near optimal for general population 130-159 Borderline high 160-189 High >=190 Very high Blood Venous blood specimen / Unknown Venipuncture / Unknown 02/23/2023 7:27 AM EDT 02/23/2023 7:40 AM EDT Jhon Oswald MD LAB BLOOD ORDERABLES [facility] [place] [address] [place] [address] * HEMOGLOBIN A1C (02/23/2023 7:27 AM EDT) Hemoglobin A1C 5.6 4.0 - 5.6 % 02/24/2023 9:38 AM EDT [facility] [place] Comment:The use of HbA1c to monitor glycemic status is based on normal hemoglobin and HbA composition. This test should not be used in patients with abnormal hemoglobin that affects the half life of the red blood cell or the in vivo glycation rates. Estimated Average Glucose 114 <126 mg/dL 02/24/2023 9:38 AM EDT [facility] [place] Blood Venous blood specimen / Unknown Venipuncture / Unknown 02/23/2023 7:27 AM EDT 02/23/2023 7:40 AM EDT Jhon Oswald MD LAB BLOOD ORDERABLES [facility] [place] [address] [facility] [place] [id number] * BASIC METABOLIC PANEL (02/23/2023 7:27 AM EDT) BUN 15 6 - 20 mg/dL 02/23/2023 8:09 AM EDT [facility] [place] Creatinine 0.6 0.6 - 1.2 mg/dL 02/23/2023 8:09 AM EDT [facility] [place] Estimated Glomerular Filtration Rate >90 >=60 mL/min 02/23/2023 8:09 AM EDT [facility] [place] Comment:eGFR is calculated b ased on the CKD-EPI 2020 equation Sodium 138 135 - 146 mmol/L 02/23/2023 8:09 AM EDT LABORATORY C Potassium 3.8 3.5 - 5.1 mmol/L 02/23/2023 8:09 AM EDT LABORATORY C Chloride 103 98 - 107 mmol/L 02/23/2023 8:09 AM EDT LABORATORY C CO2 28 22 - 32 mmol/L 02/23/2023 8:09 AM EDT [facility] [place] Anion Gap 7 7 - 15 mmol/L 02/23/2023 8:09 AM EDT LABORATORY C Glucose 86 70 - 120 mg/dL 02/23/2023 8:09 AM EDT [facility] Calcium 8.7 8.4 - 10.2 mg/dL 02/23/2023 8:09 AM EDT [facility] Blood Venous blood specimen / Unknown Venipuncture / Unknown 02/23/2023 7:27 AM EDT 02/23/2023 7:40 AM EDT Ruba Dhillon DO LAB BLOOD ORDER [place] [facility] [address] [place] [address] * (ABNORMAL) CBC (02/23/2023 7:27 AM EDT) WBC 6.80 4.00 - 10.80 K/uL 02/23/2023 7:49 AM EDT [facility] RBC 3.11 4.50 - 5.25 M/uL 02/23/2023 7:49 AM EDT [facility] HGB 10.4(L) 14.0 - 16.8 g/dL 02/23/2023 7:49 AM EDT [facility] HCT 32.3(L) 40.0 - 48.4 % 02/23/2023 7:49 AM EDT [facility] MCV 103.9 82.0 - 99.5 fL 02/23/2023 7:49 AM EDT [facility] MCH 33.4 27.0 - 34.0 pg 02/23/2023 7:49 AM EDT [facility] MCHC 32.2 32.0 - 36.0 g/dL 02/23/2023 7:49 AM EDT [facility] RDW 14.5 11.5 - 15.5 % 02/23/2023 7:49 AM EDT [facility] PLT 314 140 - 400 K/uL 02/23/2023 7:49 AM EDT [facility] MPV 10.7 6.6 - 11.1 fL 02/23/2023 7:49 AM EDT [facility] nRBCs 0 <=0 /100 WBCs 02/23/2023 7:49 AM EDT [facility] Blood Venous blood specimen / Unknown Venipuncture / Unknown 02/23/2023 7:27 AM EDT 02/23/2023 7:40 AM EDT Ruba Dhillon DO LAB BLOOD ORDER [place] Performing Organization Address City/[facility]/ZIP Co de Phone Number [facility] [place] [address] [place] [address] * CARBAMAZEPINE LEVEL (02/22/2023 8:45 PM EDT) carBAMazepine Level 4.1 4.0 - 12.0 ug/mL 02/22/2023 9:18 PM EDT [facility] [place] Blood Venous blood specimen / Unknown Venipuncture / Unknown 02/22/2023 8:45 PM EDT 02/22/2023 8:51 PM EDT Jhon Oswald MD LAB BLOOD ORDERABLES Performing Organization Address [facility] Co de Phone Number 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) Epilepsy, unspecified, not intractable, without status epilepticus (HCC) Nicotine dependence, other tobacco product, uncomplicated Hyperlipidemia, unspecified Other abnormalities of gait and mobility Dependence on supplemental oxygen Presence of cardiac pacemaker 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/antiplatelets senior living (current) use of aspirin Dyslipidemia, goal LDL below 100 Other and unspecified hyperlipidemia Tobacco use disorder GERD (gastroesophageal reflux disease) Esophageal reflux Old myocardial 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 myocardial infarction Chronic neck pain Cervicalgia BPH (benign prostatic hyperplasia) Unspecified hyperplasia of prostate without urinary obstruction and other lower urinary tract symptoms (LUTS) Intractable low back pain Lumbago Ambulatory dysfunction 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 Given 03/01/2023 12:48 PM EDT 650 mg Given 03/01/2023 5:37 AM EDT 650 mg Given 03/01/2023 12:21 AM EDT 650 mg Albuterol Sulfate (Proventil) (2.5 MG/3ML) 0.083% inhalation solution 2.5 mg 2.5 mg, Nebulizer, Q4H PRN Dyspnea, Starting on 02/22/23 at 1458, Until Fri03/01/23 at 1829 Given 02/28/2023 4:17 PM EDT 2.5 mg Given 02/28/2023 5:12 AM EDT 2.5 mg Given 02/26/2023 1:41 PM EDT 2.5 mg Albuterol Sulfate (Proventil) (2.5 MG/3ML) 0.083% inhalation solution 2.5 mg 2.5 mg, Nebulizer, [id number], First dose on Fri02/24/23 at 0000, Until Discontinued Given 02/24/2023 12:51 PM EDT 2.5 mg Given 02/24/2023 6:13 AM EDT 2.5 mg Given 02/24/2023 12:07 AM EDT 2.5 mg aspirin enteric coated tab 81 mg 81 mg, Oral, Daily(AM), First dose on [place] 02/23/23 at 0900, Until Discontinued Given 03/01/2023 8:44 AM EDT 81 mg Given 02/28/2023 7:51 AM EDT 81 mg Given 02/27/2023 8:21 AM EDT 81 mg Baclofen (Lioresal) tab 10 mg 10 mg, Oral, TID(AM/NOON/HS), First dose (after last modification) on Fri02/22/23 at 2200, Until Discontinued Given 03/01/2023 12:45 PM EDT 10 mg Given 03/01/2023 5:37 AM EDT 10 mg Given 02/28/2023 10:02 PM EDT 10 mg calcium CARBonate (Tums E-X) tab CHEW 750 mg 750 mg, Oral, ONCE, On 03/01/23 at 0000, For 1 dose Given 03/01/2023 12:21 AM EDT 750 mg carBAMazepine (Tegretol) tab 200 mg 200 mg, Oral, TID(AM/NOON/HS), First dose on Fri02/22/23 at 2200, Until Discontinued Given 03/01/2023 12:45 PM EDT 200 mg Given 03/01/2023 5:37 AM EDT 200 mg Given 02/28/2023 10:02 PM EDT 200 mg chlorHEXIDINE (Periogard) 0.12 % oral rinse 15 mL 15 mL, Oral mucosal membrane, BID (799,1999), First dose on Fri02/24/23 at 2000, Until Discontinued, Include oral/gum/tooth brushing with medication. Use prepackaged oral kit suction tooth brush if available. Given 03/01/2023 8:44 AM EDT 15 mL Given 02/28/2023 8:02 PM EDT 15 mL Given 02/28/2023 7:52 AM EDT 15 mL clopidogrel (pLAVix) tab 37.5 mg 37.5 mg, Oral, Daily(AM), First dose on Fri02/28/23 at 1130, Until Discontinued Given 03/01/2023 8:47 AM EDT 37.5 mg Given 02/28/2023 12:47 PM EDT 37.5 mg clopidogrel (pLAVix) tab 75 mg 75 mg, Oral, Daily(AM), First dose on Fri02/23/23 at 0900, Until Discontinued Given 02/26/2023 8:53 AM EDT 75 mg Given 02/25/2023 8:40 AM EDT 75 mg Given 02/24/2023 8:23 AM EDT 75 mg Docusate Sodium (Colace) cap 100 mg 100 mg, Oral, Q12H, First dose on Fri02/24/23 at 2100, Until Discontinued, For oral administration ONLY, if route of administration is other than oral and alternative product must be ordered. Given 03/01/2023 8:44 AM EDT 100 mg Given 02/28/2023 8:02 PM EDT 100 mg Given 02/28/2023 7:51 AM EDT 100 mg Enoxaparin (Lovenox) inj 40 mg 40 mg, Subcutaneous, [id number], First dose on Fri02/23/23 at 1000, Until Discontinued, If patient is on warfarin, inform provider if daily INR value is 2 or greater! Given 03/01/2023 8:44 AM EDT 40 mg Abdom en Left Lower Given 02/28/2023 9:56 AM EDT 40 mg Ab domen Right Lower Given 02/26/2023 8:54 AM EDT 40 mg Ab domen Right Upper Famotidine (Pepcid) tab 20 mg 20 mg, Oral, Daily(AM), First dose on Fri02/23/23 at 0900, Until Discontinued Given 03/01/2023 8:44 AM EDT 20 mg Given 02/28/2023 7:52 AM EDT 20 mg Given 02/27/2023 8:21 AM EDT 20 mg Finasteride (Proscar) tab 5 mg 5 mg, Oral, Daily(AM), First dose on Fri02/23/23 at 0900, Until Discontinued Given 02/26/2023 8:53 AM EDT 5 mg Given 02/25/2023 8:40 AM EDT 5 mg Given 02/24/2023 8:21 AM EDT 5 mg fluticasone (Flonase) nasal inhaler 2 [place] 2 [place], Each Nostril, Daily(AM), First dose on Fri02/23/23 at 0900, Until Discontinued, 50 mcg / Actuation Given 03/01/2023 8:46 AM EDT 2 Sprays Given 02/28/2023 7:53 AM EDT 2 Sprays Given 02/27/2023 8:21 AM EDT 2 Sprays fluticasone furoate-vilanterol (BREO ellipta) 200-25 MCG/ACT inhaler 1 Puff 1 Puff, Inhalation, Daily(AM), First dose on Fri02/23/23 at 0900, Until Discontinued, NURSING TO FOLLOW PATIENT WITH MDI/DPI ADMINISTRATION Given 03/01/2023 8:47 AM EDT 1 Puff Given 02/28/2023 7:53 AM EDT 1 Puff Given 02/27/2023 8:21 AM EDT 1 Puff folic acid tab 1 mg 1 mg, Oral, Daily(AM), First dose on Fri02/23/23 at 0900, Until Discontinued Given 03/01/2023 8:49 AM EDT 1 mg Given 02/28/2023 7:51 AM EDT 1 mg Given 02/27/2023 8:21 AM EDT 1 mg isolyte 1,000 mL bolus infusion Intravenous, Administer entire volume within 60 minutes or less. Plasma-LYTE 148, isolyte-S, and isolyte-S pH 7.4 are considered equivalent - including for MAR barcode scanning., ONCE, 1 dose, On Fri02/24/23 at 1415 New Bag 02/24/2023 1:39 PM EDT 1,000 mL 1000 mL/hr isolyte 500 mL bolus infusion Intravenous, Administer entire volume within 60 minutes or less. Plasma-LYTE 148, isolyte-S, and isolyte-S pH 7.4 are considered equivalent - including for MAR barcode scanning., ONCE, 1 dose, On Fri02/24/23 at 1215 New Bag 02/24/2023 11:58 AM EDT 500 mL 1000 mL/hr isolyte 500 mL bolus infusion Intravenous, Administer entire volume within 60 minutes or less. Plasma-LYTE 148, isolyte-S, and isolyte-S pH 7.4 are considered equivalent - including for MAR barcode scanning., ONCE, 1 dose, On Fri02/27/23 at 1845 New Bag 02/27/2023 6:08 PM EDT 500 mL 1200 mL/hr isolyte-S pH 7.4 infusion Intravenous, at 75 mL/hr, Plasma-LYTE 148, isolyte-S, and isolyte-S pH 7.4 are considered equivalent - including for MAR barcode scanning., CONTINUOUS, Starting on Fri02/24/23 at 1215, Until Fri02/25/23 at 0957 New Bag 02/25/2023 5:20 AM EDT 75 mL/ hr New Bag 02/24/2023 11:58 AM EDT 75 mL/hr isolyte-S pH 7.4 infusion Intravenous, at 50 mL/hr, Plasma-LYTE 148, isolyte-S, and isolyte-S pH 7.4 are considered equivalent - including for MAR barcode scanning., CONTINUOUS, Starting on Fri02/25/23 at 1030, Until Fri02/26/23 at 0743 Rate Change 02/25/2023 10:30 AM EDT 50 mL /hr isolyte-S pH 7.4 infusion Intravenous, at 50 mL/hr, Plasma-LYTE 148, isolyte-S, and isolyte-S pH 7.4 are considered equivalent - including for MAR barcode scanning., CONTINUOUS, Starting on Fri02/26/23 at 1030, Until Fri02/26/23 at 1226 New Bag 02/26/2023 10:05 AM EDT 50 mL /hr isolyte-S pH 7.4 infusion Intravenous, at 50 mL/hr, Plasma-LYTE 148, isolyte-S, and isolyte-S pH 7.4 are considered equivalent - including for MAR barcode scanning., CONTINUOUS, Starting on Fri02/27/23 at 0000, Until Fri02/28/23 at 0701 Restarted 02/27/2023 4:04 PM EDT 50 mL/ hr Restarted 02/27/2023 1:48 PM EDT Continue from Pre-Op 02/27/2023 12:16 PM EDT 50 mL/hr Lidocaine (Aspercreme) 4 % patch 1 Patch 1 Patch, Transdermal, Daily(AM), First dose on Fri02/23/23 at 0900, Until Discontinued, Apply patch for 12 hours then remove for 12 hours! Remove any Lidocaine patches the patient may currently be wearing prior to applying the new patch Patch Applied 02/28/2023 7:52 AM EDT 1 Patch Other-Specify Patch Applied 02/27/2023 8:20 AM EDT 1 Patch Other-Specify Patch Applied 02/26/2023 10:04 AM EDT 1 Patch Other-Specify metoprolol succinate XL (toPROL XL) tab 12.5 mg 12.5 mg, Oral, Daily(AM), First dose on Fri02/23/23 at 0900, Until Discontinued, Hold for HR less than 60 or SBP below 100 and notify service if dose is held This med should NOT be Crushed or Chewed. Given 02/24/2023 8:22 AM EDT 12.5 mg Given 02/23/2023 8:37 AM EDT 12.5 mg metoprolol succinate XL (toPROL XL) tab 12.5 mg 12.5 mg, Oral, Daily(AM), First dose on Fri02/25/23 at 1245, Until Discontinued, Hold for HR less than 60 or SBP below 100 and notify service if dose is held This med should NOT be Crushed or Chewed. Given 02/27/2023 8:22 AM EDT 12.5 mg Given 02/26/2023 8:55 AM EDT 12.5 mg Given 02/25/2023 2:17 PM EDT 12.5 mg midodrine (Proamatine) tab 5 mg 5 mg, Oral, TID(AM/NOON/HS), First dose on Fri02/28/23 at 1415, Until Discontinued Given 03/01/2023 12:46 PM EDT 5 mg Given 03/01/2023 5:37 AM EDT 5 mg Given 02/28/2023 10:02 PM EDT 5 mg Mirtazapine (Remeron) tab 30 mg 30 mg, Oral, HS, First dose on Fri02/22/23 at 2200, Until Discontinued Given 02/28/2023 10:02 PM EDT 30 mg Given 02/27/2023 9:20 PM EDT 30 mg Given 02/26/2023 8:40 PM EDT 30 mg NORepinephrine (Levophed) 4 mg in 250 ml D5W STANDARD CONCENTRATION 16 mcg/ml Peripheral IV, 0-30 mcg/min (0-112.5 mL/hr), TITRATE, Starting on Fri02/24/23 at 1300, Until Fri02/25/23 at 0549 Rate Change 02/24/2023 7:45 PM EDT 2 mcg/min 7.5 mL/hr Rate Change 02/24/2023 3:30 PM EDT 3 mcg/min 11.25 mL/hr Rate Verify 02/24/2023 11:30 AM EDT 5 mcg/min 18.75 mL/hr NORepinephrine (Levophed) 4 mg in 250 ml D5W STANDARD CONCENTRATION 16 mcg/ml Peripheral IV, 0-30 mcg/min (0-112.5 mL/hr), Maximum recommended rate for peripheral administration is 20 mcg/min. If running at maximum recommended peripheral rate and not achieving goal BP, contact provider for further guidance., TITRATE, Starting on [place] 02/27/23 at 2145, Until Fri02/28/23 at 1009 Rate Change 02/27/2023 11:16 PM EDT 2 mcg/min 7.5 mL/hr Rate Change 02/27/2023 9:30 PM EDT 4 mcg/min 15 mL/hr New Bag 02/27/2023 9:14 PM EDT 2 mcg/min 7.5 mL/hr Oral Hygiene: Mouth Swab with dentifrice Oral, Q4H LIMITED (00;04;12;16), First dose on Fri02/24/23 at 1200, Until Discontinued, To be used with 1.5% hydrogen peroxide solution or 0.05% cetylpyridium chloride oral rinse Given 03/01/2023 12:00 PM EDT Given 03/01/2023 4:00 AM EDT Given 03/01/2023 12:00 AM EDT Polyethylene Glycol 3350 (Miralax) oral powder 17 g 17 g (1 Packet), Oral, DAILY PRN Constipation, Starting on 02/22/23 at 1453, Until 03/01/23 at 1829, Mix in 8 oz of water, juice, soda, coffee, or tea. Given 03/01/2023 8:44 AM EDT 17 g potassium CHLORide liquid 40 mEq 40 mEq, Oral, ONCE, On Fri02/26/23 at 0815, For 1 dose, To avoid GI irritation, must further diilute 15 ml in 3 ounces H2O or other fluid Given 02/26/2023 8:54 AM EDT 40 mEq predniSONE (Deltasone) tab 10 mg 10 mg, Oral, Daily(AM), First dose on Fri03/01/23 at 0900, Last dose on Fri03/02/23 at 0900, For 2 doses Given 03/01/2023 8:44 AM EDT 10 mg predniSONE (Deltasone) tab 20 mg 20 mg, Oral, Daily(AM), First dose on Fri02/27/23 at 0900, Last dose on Fri02/28/23 at 0900, For 2 doses Given 02/28/2023 7:51 AM EDT 20 mg Given 02/27/2023 8:21 AM EDT 20 mg predniSONE (Deltasone) tab 30 mg 30 mg, Oral, Daily(AM), First dose on Fri02/25/23 at 0900, Last dose on Fri02/26/23 at 0900, For 2 doses Given 02/26/2023 8:53 AM EDT 30 mg Given 02/25/2023 8:40 AM EDT 30 mg predniSONE (Deltasone) tab 40 mg 40 mg, Oral, Daily(AM), First dose on Fri02/23/23 at 0900, Last dose on Fri02/24/23 at 0900, For 2 doses Given 02/24/2023 8:21 AM EDT 40 mg Given 02/23/2023 8:36 AM EDT 40 mg vitamins plus 1 mg folic acid tab 1 Tablet 1 Tablet, Oral, DAILY NOON, First dose on Fri03/01/23 at 1115, Until Discontinued Given 03/01/2023 12:45 PM EDT 1 Ta blet Simvastatin (Zocor) tab 40 mg 40 mg, Oral, QPM-1999, First dose on 02/22/23 at 2000, Until Discontinued Given 02/28/2023 8:32 PM EDT 40 mg Given 02/27/2023 7:59 PM EDT 40 mg Given 02/26/2023 7:56 PM EDT 40 mg sodium chloride 0.9 % flush peripheral nikky 3 mL 3 mL, IV Push, Q8H, First dose on Fri02/24/23 at 1400, Until Discontinued, Do not flush if lock, PICC, or central line not in place; IV infusing or unable to flush. Given 03/01/2023 6:00 AM EDT 3 mL Given 02/28/2023 10:00 PM EDT 3 mL Given 02/28/2023 2:00 PM EDT 3 mL sodium chloride 0.9 % flush/inj 3 mL 3 mL, IV Push, PRN Other, Line Patency, Starting on 02/22/23 at 1453, Until 03/01/23 at 1829, Do not flush if lock, PICC, or central line not in place, IV infusing or unable to flush tamsulosin (Flomax) cap 0.8 mg 0.8 mg, Oral, Daily(AM), First dose on Fri02/23/23 at 0900, Until Discontinued, Administer 30 min after meal. This med should NOT be Crushed or Chewed or opened! ORAL administration only!! Given 03/01/2023 8:46 AM EDT 0.8 mg Given 02/28/2023 7:52 AM EDT 0.8 mg Given 02/27/2023 8:22 AM EDT 0.8 mg documented in this encounter Active and Recently Administered Medications Times are shown in EDT. Scheduled Medication Order 02/27/2023 02/28/2023 03/01/2023 Acetaminophen (Tylenol) tab 650 mg 650 mg, Oral, Q6H, First dose (after last modification) on 02/23/23 at 1500, Until Discontinued, Maximum of 4 grams (4000 mg) per day. 0106 (Given - Provider: Isaac Gilmore RN)0513 (Given - Provider: Isaac Gilmore RN)1141 (Given - Provider: Charli Smith RN)1800 (Not Given - Provider: Charli Smith RN - Reason: NPO) 0000 (Not Given - Provider: Charli Smith RN - Reason: Refused-Notify Provider - Comment: blessing cool aware.)0605 (Given - Provider: Dotty Nagel RN)1206 (Given - Provider: Charli Smith RN)1746 (Given - Provider: Charli Smith RN) 0021 (Given - Provider: Dionna Mace RN)0537 (Given - Provider: Dionna Mace RN)1248 (Given - Provider: Soto Nicholas RN) aspirin enteric coated tab 81 mg 81 mg, Oral, Daily(AM), First dose on 02/23/23 at 0900, Until Discontinued 0821 (Given - Provider: Charli Smith RN) 0751 (Given - Provider: Charli Smith RN) 0844 (Given - Provider: Soto Nicholas RN) Baclofen (Lioresal) tab 10 mg 10 mg, Oral, TID(AM/NOON/HS), First dose (after last modification) on 02/22/23 at 2200, Until Discontinued 0513 (Given - Provider: Isaac Gilmore RN)1141 (Given - Provider: Charli Smith RN)2121 (Given - Provider: Charli Smith RN) 0605 (Given - Provider: Dotty Nagel RN)1206 (Given - Provider: Charli Smith RN)2202 (Given - Provider: Dionna Mace RN) 0537 (Given - Provider: Dionna Mace RN)1245 (Given - Provider: Soto Nicholas RN) calcium CARBonate (Tums E-X) tab CHEW 750 mg (COMPLETED) 750 mg, Oral, ONCE, On Fri03/01/23 at 0000, For 1 dose 0021 (Given - Provider: Dionna Mace RN) carBAMazepine (Tegretol) tab 200 mg 200 mg, Oral, TID(AM/NOON/HS), First dose on Fri02/22/23 at 2200, Until Discontinued 0513 (Given - Provider: Isaac Gilmore RN)1141 (Given - Provider: Charli Smith RN)2121 (Given - Provider: Charli Smith RN) 0605 (Given - Provider: Dotty Nagel RN)1206 (Given - Provider: Charli Smith RN)220 (Given - Provider: Dionna Mace RN) 0537 (Given - Provider: Dionna Mace RN)1245 (Given - Provider: Soto Nicholas RN) chlorHEXIDINE (Periogard) 0.12 % oral rinse 15 mL 15 mL, Oral mucosal membrane, BID (799,1999), First dose on Fri02/24/23 at 2000, Until Discontinued, Include oral/gum/tooth brushing with medication. Use prepackaged oral kit suction tooth brush if available. 08 (Given - Provider: Charli Smith RN)1958 (Given - Provider: Charli Smith RN) 075 (Given - Provider: Charli Smith RN)2001 (Given - Provider: Dionna Mace RN) 0844 (Given - Provider: Soto Nicholas RN) clopidogrel (pLAVix) tab 37.5 mg 37.5 mg, Oral, Daily(AM), First dose on Fri02/28/23 at 1130, Until Discontinued 1247 (Given - Provider: Charli Smith RN) 0847 (Given - Provider: Soto Nicholas RN) Docusate Sodium (Colace) cap 100 mg 100 mg, Oral, Q12H, First dose on Fri02/24/23 at 2100, Until Discontinued, For oral administration ONLY, if route of administration is other than oral and alternative product must be ordered. 08 (Given - Provider: Charli Smith RN)1958 (Given - Provider: Charli Smith RN) 750 (Given - Provider: Charli Smith RN)2001 (Given - Provider: Dionna Mace RN) 0844 (Given - Provider: Soto Nicholas, FERNANDA) Enoxaparin (Lovenox) inj 40 mg 40 mg, Subcutaneous, [id number], First dose on 02/23/23 at 1000, Until Discontinued, If patient is on warfarin, inform provider if daily INR value is 2 or greater! 1000 (Not Given - Provider: Charli Smith RN - Reason: Order Clarified - Comment: held per dr corona) 955 (Given - Provider: Charli Smith RN) 08 (Given - Provider: Soto Nicholas RN) Famotidine (Pepcid) tab 20 mg 20 mg, Oral, Daily(AM), First dose on 02/23/23 at 0900, Until Discontinued 820 (Given - Provider: Charli Smith RN) 751 (Given - Provider: Charli Smith RN) 0844 (Given - Provider: Soto Nicholas RN) fluticasone (Flonase) nasal inhaler 2 [place] 2 [place], Each Nostril, Daily(AM), First dose on 02/23/23 at 0900, Until Discontinued, 50 mcg / Actuation 820 (Given - Provider: Charli Smith RN) 752 (Given - Provider: Charli Smith RN) 0846 (Given - Provider: Soto Nicholas RN) fluticasone furoate-vilanterol (BREO ellipta) 200-25 MCG/ACT inhaler 1 Puff 1 Puff, Inhalation, Daily(AM), First dose on 02/23/23 at 0900, Until Discontinued, NURSING TO FOLLOW PATIENT WITH MDI/DPI ADMINISTRATION 820 (Given - Provider: Charli Smith RN) 075 (Given - Provider: Charli Smith RN) 0847 (Given - Provider: Soto Nicholas RN) folic acid tab 1 mg 1 mg, Oral, Daily(AM), First dose on Fri02/23/23 at 0900, Until Discontinued 0821 (Given - Provider: Charli Smith RN) 0751 (Given - Provider: Charli Smith RN) 0849 (Given - Provider: Soto Nicholas, FERNANDA) isolyte 500 mL bolus infusion (COMPLETED) Intravenous, Administer entire volume within 60 minutes or less. Plasma-LYTE 148, isolyte-S, and isolyte-S pH 7.4 are considered equivalent - including for MAR barcode scanning., ONCE, 1 dose, On [place] 02/27/23 at 1845 1808 (New Bag - Provider: Charli Smith RN) Lidocaine (Aspercreme) 4 % patch 1 Patch 1 Patch, Transdermal, Daily(AM), First dose on Fri02/23/23 at 0900, Until Discontinued, Apply patch for 12 hours then remove for 12 hours! Remove any Lidocaine patches the patient may currently be wearing prior to applying the new patch 0820 (Patch Applied - Provider: Charli Smith RN - Comment: mid upper back center)2019 (Patch Removed - Provider: Charli Smith RN) 075 (Patch Applied - Provider: Charli Smith RN - Comment: neck)195 (Patch Removed - Provider: Dionna Mace RN) 0900 (Not Given - Provider: Soto Nicholas RN - Reason: Other-Notify Provider - Comment: accudose out of stock.) metoprolol succinate XL (toPROL XL) tab 12.5 mg (CANCELED) 12.5 mg, Oral, Daily(AM), First dose on Fri02/25/23 at 1245, Until Discontinued, Hold for HR less than 60 or SBP below 100 and notify service if dose is held This med should NOT be Crushed or Chewed. 0822 (Given - Provider: Charli Smith RN) midodrine (Proamatine) tab 5 mg 5 mg, Oral, TID(AM/NOON/HS), First dose on Fri02/28/23 at 1415, Until Discontinued 1433 (Given - Provider: Charli Smith RN)220 (Given - Provider: Dionna Mace RN) 0537 (Given - Provider: Dionna Mace RN)1246 (Given - Provider: Soto Nicholas, FERNANDA) Mirtazapine (Remeron) tab 30 mg 30 mg, Oral, HS, First dose on 02/22/23 at 2200, Until Discontinued 2119 (Given - Provider: Charli Smith RN) 2201 (Given - Provider: Dionna Mace RN) Oral Hygiene: Mouth Swab with dentifrice Oral, Q4H LIMITED (00;04;12;16), First dose on 02/24/23 at 1200, Until Discontinued, To be used with 1.5% hydrogen peroxide solution or 0.05% cetylpyridium chloride oral rinse 0000 (Not Given - Provider: Isaac Gilmore RN - Reason: Parameter(s) Not Met)0400 (Given - Provider: Isaac Gilmore RN)1200 (Given - Provider: Charli Smith RN)1600 (Given - Provider: Charli Smith RN) 0000 (Not Given - Provider: Dotty Nagel RN - Reason: Refused-Notify Provider - Comment: Sushant MURCIA aware)0400 (Not Given - Provider: Dotty Nagel RN - Reason: Refused-Notify Provider - Comment: susahnt campbell pa-c)1200 (Given - Provider: Charli Smith RN)1600 (Given - Provider: Charli Smith RN) 0000 (Given - Provider: Dionna Mace RN)0400 (Given - Provider: Dionna Mace RN)1200 (Given - Provider: Soto Nicholas, FERNANDA) predniSONE (Deltasone) tab 10 mg 10 mg, Oral, Daily(AM), First dose on 03/01/23 at 0900, Last dose on 03/02/23 at 0900, For 2 doses 0844 (Given - Provider: Soto Nicholas RN) predniSONE (Deltasone) tab 20 mg (COMPLETED) 20 mg, Oral, Daily(AM), First dose on Fri02/27/23 at 0900, Last dose on Fri02/28/23 at 0900, For 2 doses 0821 (Given - Provider: Charli Smith RN) 0751 (Given - Provider: Charli Smith RN) vitamins plus 1 mg folic acid tab 1 Tablet 1 Tablet, Oral, DAILY NOON, First dose on Fri03/01/23 at 1115, Until Discontinued 1245 (Given - Provider: Soto Nicholas, FERNANDA) Simvastatin (Zocor) tab 40 mg 40 mg, Oral, QPM-1999, First dose on Fri02/22/23 at 2000, Until Discontinued 1958 (Given - Provider: Charli Smith RN) 2031 (Given - Provider: Dionna Mace, FERNANDA) sodium chloride 0.9 % flush peripheral nikky 3 mL 3 mL, IV Push, Q8H, First dose on Fri02/24/23 at 1400, Until Discontinued, Do not flush if lock, PICC, or central line not in place; IV infusing or unable to flush. 0600 (Given - Provider: Isaac Gilmore RN)1200 (Given - Provider: Charli Smith RN)2200 (Given - Provider: Charli Smith RN) 0600 (Given - Provider: Dotty Nagel RN)1400 (Given - Provider: Charli Smith RN)2200 (Given - Provider: Dionna Mace, FERNANDA) 0600 (Given - Provider: Dionna Mace RN)1400 (Not Given - Provider: Soto Nicholas RN - Reason: Parameter(s) Not Met - Comment: ivs removed) tamsulosin (Flomax) cap 0.8 mg 0.8 mg, Oral, Daily(AM), First dose on Fri02/23/23 at 0900, Until Discontinued, Administer 30 min after meal. This med should NOT be Crushed or Chewed or opened! ORAL administration only!! 0822 (Given - Provider: Charli Smith RN) 0752 (Given - Provider: Charli Smith RN) 0846 (Given - Provider: Soto Nicholas RN) Continuous Medication Order 02/27/2023 02/28/2023 03/01/2023 isolyte-S pH 7.4 infusion (CANCELED) Intravenous, at 50 mL/hr, Plasma-LYTE 148, isolyte-S, and isolyte-S pH 7.4 are considered equivalent - including for MAR barcode scanning., CONTINUOUS, Starting on Fri02/27/23 at 0000, Until Fri02/28/23 at 0701 0107 (New Bag - Provider: Isaac Gilmore RN)0829 (New Bag - Provider: Charli Smith RN)1216 (Continue from Pre-Op - Provider: Santiago Pimentel CRNA)1347 (Paused - Provider: Santiago Pimentel CRNA - Comment: Switch to gravity)1348 (Restarted - Provider: Santiago Pimentel CRNA)1503 (Anes Intra-Op Fluid - Provider: Santiago Pimentel CRNA)1604 (Restarted - Provider: Charli Smith RN) 0700 (Stopped - Provider: Dotty Nagel, FERNANDA) NORepinephrine (Levophed) 4 mg in 250 ml D5W STANDARD CONCENTRATION 16 mcg/ml (CANCELED) Peripheral IV, 0-30 mcg/min (0-112.5 mL/hr), Maximum recommended rate for peripheral administration is 20 mcg/min. If running at maximum recommended peripheral rate and not achieving goal BP, contact provider for further guidance., TITRATE, Starting on Layne 02/27/23 at 2145, Until Fri02/28/23 at 1009 2114 (New Bag - Provider: Charli Smith RN)2130 (Rate Change - Provider: Charli Smith RN)2316 (Rate Change - Provider: Dotty Nagel, FERNANDA) 0530 (Stopped - Provider: Dotty Nagel RN) PRN Medication Order 02/27/2023 02/28/2023 03/01/2023 Albuterol Sulfate (Proventil) (2.5 MG/3ML) 0.083% inhalation solution 2.5 mg 2.5 mg, Nebulizer, Q4H PRN Dyspnea, Starting on 02/22/23 at 1458, Until 03/01/23 at 1829 0512 (Given - Provider: Lacey Moore, CRYPTOLOGIC TECHNICIAN OPERATOR/ANALYST)1617 (Given - Provider: Ander Gutierrez, CRYPTOLOGIC TECHNICIAN OPERATOR/ANALYST) hEParin 1000 UNIT/ML inj (CANCELED) ONCE PRN INTRA PROCEDURE, Starting on Layne 7 at 1249, Until Layne 7 at 1544, Intra-Op 1249 (Given - Provider: Bennett Quevedo MD) hEParin 3000 units in 1000 mL NSS infusion (CANCELED) ONCE PRN INTRA PROCEDURE, Starting on Layne 02/27/23 at 1249, Until Layne 7 at 1544, Intra-Op 1249 (Given - Provider: Bennett Quevedo MD - Comment: PRN throughout the case)1421 (Given - Provider: Bennett Quevedo MD - Comment: PRN throughout the case) Iodixanol (Visipaque 320) inj (CANCELED) ONCE PRN INTRA PROCEDURE, Starting on Layne 02/27/23 at 1502, Until Layne 7 at 1544, Intra-Op 1502 (Given - Provider: Bennett Quevedo MD) lidocaine 1 % 10 mL, sodium bicarbonate 1 mL inj (CANCELED) ONCE PRN INTRA PROCEDURE, Starting on Layne 02/27/23 at 1247, Until Layne 7 at 1544, Intra-Op 1247 (Given - Provider: Bennett Quevedo MD)1410 (Given - Provider: Bennett Quevedo MD) nitroglycerin (100 mcg/mL) inj (CANCELED) ONCE PRN INTRA PROCEDURE, Starting on Layne 02/27/23 at 1249, Until Layne 7 at 1544, Intra-Op 1249 (Given - Provider: Bennett Quevedo MD) Polyethylene Glycol 3350 (Miralax) oral powder 17 g 17 g (1 Packet), Oral, DAILY PRN Constipation, Starting on 02/22/23 at 1453, Until 03/01/23 at 1829, Mix in 8 oz of water, juice, soda, coffee, or tea. 0844 (Given - Provider: Soto Nicholas, RN) sodium chloride 0.9 % flush/inj 3 mL 3 mL, IV Push, PRN Other, Line Patency, Starting on 02/22/23 at 1453, Until 03/01/23 at 1829, Do not flush if lock, PICC, or central line not in place, IV infusing or unable to flush verapamil (Isoptin) inj (CANCELED) ONCE PRN INTRA PROCEDURE, Starting on Layne 02/27/23 at 1253, Until Layne 02/27/23 at 1544, Intra-Op 1253 (Given - Provider: Bennett Quevedo MD) documented in this encounter Advance Directives Documents on File Type Date Recorded Patient Final Operations Technician Expl anation Advance Directives and Living Will 02/22/2023 ADVANCE DIRECTIVE / LIVING WILL Power of Multisensor Intelligence Officer 02/22/2023 POWER OF A TTORNEY Latest Code [...] the patient have Health Care Power of Multisensor Intelligence Officer? No Full Code 11/01/2019 5:41 AM 11/05/2019 8:10 PM This o rder reflects the patients wishes and were consensually agreed upon. Question Answer Comments Discussion of Advance Directives occurred with: Patient Does the patient have a Living Will? No Does the patient have Health Care Power of Multisensor Intelligence Officer? No Care Teams Craniologist Relationship Specialty Start Date End Date James Madsen PA-C [address] [place] [address] PCP - General Physician Letter Of Credit Clerk 02/24/22 documented as of this encounter
--- OUTSIDE RECORDS SUMMARY | 2023-08-24 16:55 | External Medical Summary ---
Author Name Unknown Address Unknown Organization [id number]:LABORATORY [facility] [place] - [facility] [place] [facility] [place] [facility] [address] Laboratory Report Ordering Provider Test Date Status JEAN-PIERRE NICKERSON 02/28/2023 13:15:00 Final Observation Date Value Abnormality Reference (Units ) Status WBC, Total 02/28/2023 13:15:00 8.05 4.00-10.80 (K/uL) Final RBC 02/28/2023 13:15:00 2.29 4.50-5.25 (M/uL) Final Hemoglobin 02/28/2023 13:15:00 7.7 Below low normal 14.0-16.8 (g/dL) Final HCT 02/28/2023 13:15:00 23.8 Below low normal 40.0-48.4 (%) Final MCV 02/28/2023 13:15:00 103.9 82.0-99.5 (fL) Final MCH 02/28/2023 13:15:00 33.6 27.0-34.0 (pg) Final MCHC 02/28/2023 13:15:00 32.4 32.0-36.0 (g/dL) Final RDW 02/28/2023 13:15:00 14.4 11.5-15.5 (%) Final Platelets 02/28/2023 13:15:00 315 140-400 (K/uL) Final MPV 02/28/2023 13:15:00 10.9 6.6-11.1 (fL) Final Nucleated erythrocytes/100 leukocytes [Ratio] in Blood by Automated count 02/28/2023 13:15:00 0 <=0 (/100 WBCs) Final Performing Location LABORATORY [facility] [place] - [address] [facility] [address]
--- OUTSIDE RECORDS SUMMARY | 2023-08-24 16:55 | External Medical Summary | Summary of Care ---
Author Name Unknown Organization [facility] Address [address] [place] [address] Phone [phone] Care Team Providers Care Welder Setter Resistance Machine Name Role Phone James Madsen PA-C Primary Care Provider + Reason for Visit * Reason Onset Date Comments Appointment 03/03/2023 Encounter Details Date Type Department Care Team Description 03/03/2023 Telephone [facility] [place] [address] [place] [address] Services, [facility] [address] [place] [address] Appointment Allergies Active Allergy Reactions Severity Noted Date Comments Tiotropium High 12/20/2019 "Couldn't catch his breath" documented as of this encounter (statuses as of 03/04/2023) Medications Medication Sig Dispensed Refills Start Date [...] as of this encounter (statuses as of 03/04/2023) Active Problems Problem Noted Date Stenosis of [...] as of this encounter (statuses as of 03/04/2023) Resolved Problems Problem Noted Date Resolved Date F/u for non Q wave myocardial infarction 003 03/16/2009 Overview: Modified by Acute [place] Protocol #5. Dyslipidemia, goal to be determined 01/12/2003 08/07/2009 Overview: Per Lipid Taxonomy. documented as of this encounter (statuses as of 03/04/2023) Immunizations Name Administration Dates Next Due COVID-19 [...] encounter Miscellaneous Notes * Telephone Encounter - Grecia Russo RN - 03/04/2023 1:52 PM EDT Scheduled patient for post op on 04/02/23 with Marleny Coleman. Confirmed with Thania date and time. * Telephone Encounter - NEW Toth - 03/03/2023 12:12 PM EDT 1 mth; PO - Sae No appts in date range. Please advise or schedule as appropriate. Thank you Appt Needed Within: (Specify # of Days, Weeks, Months) -> 1 Mo Provider -> BENNETT QUEVEDO Released on: 03/01/2023 12:38 PM documented in this encounter Plan of Treatment Upcoming Encounters Date Type Specialty Care Team Description 03/10/2023 Telemedicine Neurology [place], [facility] [address] [place] [address] 04/02/2023 Office Visit Neurological Surgery Marleny Coleman PA-C [address] [facility] [place] [address] Health Maintenance Due Date Last Done [...] this encounter Medical Devices Implanted Type Area Barber Device Identifier Shelf Expiration Date Model / Serial / Lot Stent 7x40 Precise [id number] - [id number] Implanted:Qty : 1 on 02/27/2023 by Bennett Quevedo MD at [facility] Left: Carotid [facility] [facility] [id number] 12/23/2023 [id number] / / [id number] documented as of this encounter Advance Directives Documents on File Type Date Recorded 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 No Full Code 11/01/2019 5:41 AM 11/05/2019 8:10 PM This o rder reflects the patients wishes and were consensually agreed upon. Question Answer Comments Discussion of Advance Directives occurred with: Patient Does the patient have a Living Will? No Does the patient have Health Care Power of Green Promotions Specialist? No Care Teams Welder Setter Resistance Machine Relationship Specialty Start Date End Date James Madsen PA-C [address] [address] [place] [address] PCP - General Physician Hoeing Row Boss 02/24/22 documented as of this encounter
--- OUTSIDE RECORDS SUMMARY | 2023-08-24 16:55 | External Medical Summary | Summary of Care ---
Author Name Unknown Organization [facility] Address [address] [place] [address] Phone [phone] Care Team Providers Care Camp Recreation Specialist Name Role Phone James Madsen PA-C Primary Care Provider + Reason for Visit * Reason Comments Dosage Adjustment Via Phone (anticoag Cl inic) Encounter Details Date Type Department Care Team Description 03/10/2023 Telemedicine Neurology, [place] [address] [place] [address] [place], Pharmacist Neurology [address] [place] [address] Encounter for long-term current use [...] myocardial infarct 03/16/2009 Overview: Modified by Acute [place] Protocol #5. GERD (gastroesophageal reflux disease) 0 01/12/2003 GENERAL OSTEOARTHROSIS 01/12/2003 Major depression, single episode 003 Tobacco use disorder 01/12/2003 Convulsions 09/21/2002 BPH (benign prostatic hyperplasia) Chronic neck pain documented as of this encounter (statuses as of 03/10/2023) Resolved Problems Problem Noted Date Resolved Date F/u for non Q wave myocardial infarction 003 03/16/2009 Overview: Modified by Acute [place] Protocol #5. Dyslipidemia, goal to be determined [...] Neurological Surgery Marleny Coleman PA-C [address] [facility] [place] [address] Health Maintenance Due Date Last Done Comments DISCUSS TOBACCO CESSATION (REFER TO SMARTSET #7610) 1939 Depression Screening, Annual for Pts 12 [...] this encounter Medical Devices Implanted Type Area Obstetrics And Gynecology Professor Device Identifier Shelf Expiration Date Model / Serial / Lot Stent 7x40 Precise [id number] - [id number] Implanted:Qty : 1 on 02/27/2023 by Bennett Quevedo MD at [place] 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 No Full Code 11/01/2019 5:41 AM 11/05/2019 8:10 PM This o rder reflects the patients wishes and were consensually agreed upon. Question Answer Comments Discussion of Advance Directives occurred with: Patient Does the patient have a Living Will? No Does the patient have Health Care Power of Director Of Regional Sales? No Care Teams Camp Recreation Specialist Relationship Specialty Start Date End Date James Madsen PA-C [address] [address] [place] [address] PCP - General Physician Supervisor Varnish 02/24/22 documented as of this encounter
--- OUTSIDE RECORDS SUMMARY | 2023-08-24 16:55 | External Medical Summary ---
Author Name Unknown Address Unknown Organization [id number]:LABORATORY [facility] - [facility] [address] Laboratory Report Ordering Provider Test Date Status ABDULLAHI GRIJALVA 03/01/2023 05:20:00 Final Observation Date Value Abnormality Reference (Units ) Status WBC, Total 03/01/2023 05:20:00 9.46 4.00-10.80 (K/uL) Final RBC 03/01/2023 05:20:00 2.21 4.50-5.25 (M/uL) Final Hemoglobin 03/01/2023 05:20:00 7.6 Below low normal 14.0-16.8 (g/dL) Final HCT 03/01/2023 05:20:00 23.3 Below low normal 40.0-48.4 (%) Final MCV 03/01/2023 05:20:00 105.4 82.0-99.5 (fL) Final MCH 03/01/2023 05:20:00 34.4 27.0-34.0 (pg) Final MCHC 03/01/2023 05:20:00 32.6 32.0-36.0 (g/dL) Final RDW 03/01/2023 05:20:00 14.9 11.5-15.5 (%) Final Platelets 03/01/2023 05:20:00 319 140-400 (K/uL) Final MPV 03/01/2023 05:20:00 11.3 6.6-11.1 (fL) Final Nucleated erythrocytes/100 leukocytes [Ratio] in Blood by Automated count 03/01/2023 05:20:00 0 <=0 (/100 WBCs) Final Performing Location LABORATORY [facility] - [address] [facility] [address]
--- OUTSIDE RECORDS SUMMARY | 2023-08-24 16:55 | External Medical Summary ---
Author Name Unknown Address Unknown Organization K01[place] [place] [facility] [address] Laboratory Report Ordering Provider Test Date Status BS FERNANDO 03/01/2023 05:20:00 Final Assay measures the level of platelet [...] Platelet aggregation ADP induced [Units/volume] in Blood 03/01/2023 05:20:00 148 Below low normal 182-335 (PRU) Final Performing Location [facility] [facility] [address] [facility] [address] [facility] [address]
--- OUTSIDE RECORDS SUMMARY | 2023-08-24 16:55 | External Medical Summary | Summary of Care ---
Author Name Unknown Organization [facility] Address [address] [place] [address] Phone [phone] Care Team Providers Care Acquisitions Librarian Name Role Phone James Madsen PA-C Primary Care Provider + Reason for Visit * Reason Onset Date Comments Appointment 03/03/2023 Encounter Details Date Type Department Care Team Description 03/03/2023 Telephone Neurology, [place] [address] [place] [address] Bennett Quevedo MD [address] [facility] [place] [address] Appointment Allergies Active Allergy Reactions Severity Noted [...] myocardial infarct 03/16/2009 Overview: Modified by Acute [place] Protocol #5. GERD (gastroesophageal reflux disease) 0 01/12/2003 GENERAL OSTEOARTHROSIS 01/12/2003 Major depression, single episode 003 Tobacco use disorder 01/12/2003 Convulsions 09/21/2002 BPH (benign prostatic hyperplasia) Chronic neck pain documented as of this encounter (statuses as of 03/04/2023) Resolved Problems Problem Noted Date Resolved Date F/u for non Q wave myocardial infarction 003 03/16/2009 Overview: Modified by Acute [place] Protocol #5. Dyslipidemia, goal to be determined [...] Miscellaneous Notes * Telephone Encounter - NEW [place] - 03/04/2023 10:30 AM EDT Spoke with patient to schedule [facility] appointment for medication management. Appointment scheduled as noted below. 03/10/2023 @ 10 AM * Telephone Encounter - Jessica Roland RP - 03/03/2023 12:25 PM EDT Neurology Pharmacist Appointment Request Department & Provider: Neurology [address] [[id number]] -- Pharmacist Neurology [place] [[id number]] Patient to be scheduled for visit type: Telephonic Medicine Visit [[id number]] Reason for visit: Medication Education - aspirin and plavix monitoring Length of visit: 30 min Time Frame: within 2 weeks Please route this encounter back to Neuro Pharmacist Refill Pool/Class [p [id number]] if unable to schedule patient after 3 attempts. documented in this encounter Plan of Treatment Upcoming Encounters Date Type Specialty Care Team Description 03/10/2023 Telemedicine Neurology [place], Pharmacist Neurology [address] [place] [address] Health Maintenance Due Date Last Done Comments DISCUSS TOBACCO CESSATION (REFER TO SMARTSET #1462) 1940 Depression Screening, Annual for Pts 12 [...] this encounter Medical Devices Implanted Type Area Tennis Ball Coverer Hand Device Identifier Shelf Expiration Date Model / Serial / Lot Stent 7x40 Precise [id number] - [id number] Implanted:Qty : 1 on 02/27/2023 by Bennett Quevedo MD at [place] [facility] Left: Carotid [employer] [place] [id number] 12/23/2023 [id number] / / [id number] documented as of this encounter Advance Directives Documents on File Type Date Recorded Patient Pump Oiler Expl anation Advance Directives and Living Will 02/22/2023 ADVANCE DIRECTIVE / LIVING WILL Power of Package Dye Stand Loader 02/22/2023 POWER OF A TTORNEY Latest Code [...] the patient have Health Care Power of Package Dye Stand Loader? No Full Code 11/01/2019 5:41 AM 11/05/2019 8:10 PM This o rder reflects the patients wishes and were consensually agreed upon. Question Answer Comments Discussion of Advance Directives occurred with: Patient Does the patient have a Living Will? No Does the patient have Health Care Power of Package Dye Stand Loader? No Care Teams Acquisitions Librarian Relationship Specialty Start Date End Date James Madsen PA-C [address] [address] [place] [address] PCP - General Physician Research Associate Professor 02/24/22 documented as of this encounter
--- OUTSIDE RECORDS SUMMARY | 2023-08-24 16:55 | External Medical Summary ---
Author Name Unknown Address Unknown Organization K01:LABORATORY [facility] - [address] [place] [address] Laboratory Report Ordering Provider Test Date Status JEAN-PIERRE NICKERSON 03/01/2023 05:20:00 Final Observation Date Value Abnormality Reference (Units ) Status Magnesium 03/01/2023 05:20:00 2.2 1.5-2.6 (m g/dL) Final Performing Location LABORATORY [facility] - [address] [place] [address]
--- OUTSIDE RECORDS SUMMARY | 2023-08-24 16:55 | External Medical Summary ---
Author Name Unknown Address Unknown Organization K01:LABORATORY [facility] - [facility] [address] [facility] [address] Laboratory Report Ordering Provider Test Date Status GRACIELA MANRIQUEZ 02/28/2023 08:11:00 Final Assay measures the level of platelet [...] Platelet aggregation ADP induced [Units/volume] in Blood 02/28/2023 08:11:00 92 Below low normal 182-335 (PRU) Final Performing Location LABORATORY [facility] - [facility] [address] [facility] [address] [facility] [address]
--- OUTSIDE RECORDS SUMMARY | 2023-08-24 16:55 | External Medical Summary ---
Author Name Unknown Address Unknown Organization K01:LABORATORY [facility] - [facility] [address] Laboratory Report Ordering Provider Test Date Status JEAN-PIERRE NICKERSON 02/28/2023 22:23:00 Final Observation Date Value Abnormality Reference (Units ) Status WBC, Total 02/28/2023 22:23:00 8.36 4.00-10.80 (K/uL) Final RBC 02/28/2023 22:23:00 2.23 4.50-5.25 (M/uL) Final Hemoglobin 02/28/2023 22:23:00 7.7 Below low normal 14.0-16.8 (g/dL) Final HCT 02/28/2023 22:23:00 23.1 Below low normal 40.0-48.4 (%) Final MCV 02/28/2023 22:23:00 103.6 82.0-99.5 (fL) Final MCH 02/28/2023 22:23:00 34.5 27.0-34.0 (pg) Final MCHC 02/28/2023 22:23:00 33.3 32.0-36.0 (g/dL) Final RDW 02/28/2023 22:23:00 14.5 11.5-15.5 (%) Final Platelets 02/28/2023 22:23:00 315 140-400 (K/uL) Final MPV 02/28/2023 22:23:00 11.0 6.6-11.1 (fL) Final Nucleated erythrocytes/100 leukocytes [Ratio] in Blood by Automated count 02/28/2023 22:23:00 0 <=0 (/100 WBCs) Final Performing Location LABORATORY [facility] - [address] [facility] [address]
--- OUTSIDE RECORDS SUMMARY | 2023-08-24 16:55 | External Medical Summary ---
Author Name Unknown Address Unknown Organization K01:LABORATORY [facility] - [address] [place] [address] Laboratory Report Ordering Provider Test Date Status JEAN-PIERRE NICKERSON 03/01/2023 05:20:00 Final Observation Date Value Abnormality Reference (Units ) Status Phosphate 03/01/2023 05:20:00 3.4 2.5-4.8 (m g/dL) Final Performing Location LABORATORY [facility] - [address] [place] [address]
--- OUTSIDE RECORDS SUMMARY | 2023-08-24 16:56 | External Medical Summary ---
Author Name Unknown Address Unknown Organization K01:[facility] [place] [address] [place] [address] [address] Laboratory Report Ordering Provider Test Date Status JOHN HASKINS 02/27/2023 10:44:00 Final Observation Date Value Abnormality Reference (Units ) Status Potassium 02/27/2023 10:44:00 4.3 3.5-5.1 (m mol/L) Final Performing Location [facility] - [address] [place] [address]
--- OUTSIDE RECORDS SUMMARY | 2023-08-24 16:56 | External Medical Summary ---
Author Name Unknown Address Unknown Organization K01:[facility] - [address] [place] [address] Laboratory Report Ordering Provider Test Date Status JEAN-PIERRE NICKERSON 02/27/2023 04:33:00 Final Observation Date Value Abnormality Reference (Units ) Status Magnesium 02/27/2023 04:33:00 2.3 1.5-2.6 (m g/dL) Final Performing Location [facility] - [address] [place] [address]
--- OUTSIDE RECORDS SUMMARY | 2023-08-24 16:56 | External Medical Summary ---
Author Name Unknown Address Unknown Organization K01:[facility] - [address] [place] [address] Laboratory Report Ordering Provider Test Date Status JEAN-PIERRE NICKERSON 02/28/2023 04:59:00 Final Observation Date Value Abnormality Reference (Units ) Status Phosphate 02/28/2023 04:59:00 3.0 2.5-4.8 (m g/dL) Final Performing Location [facility] - [address] [place] [address]
--- OUTSIDE RECORDS SUMMARY | 2023-08-24 16:56 | External Medical Summary ---
Author Name Unknown Address Unknown Organization K01:[facility] [place] [facility] [address] Laboratory Report Ordering Provider Test Date Status ABDULLAHI GRIJALVA 02/28/2023 04:59:00 Final Observation Date Value Abnormality Reference (Units ) Status WBC, Total 02/28/2023 04:59:00 9.56 4.00-10.80 (K/uL) Final RBC 02/28/2023 04:59:00 2.48 4.50-5.25 (M/uL) Final Hemoglobin 02/28/2023 04:59:00 8.4 Below low normal 14.0-16.8 (g/dL) Final HCT 02/28/2023 04:59:00 26.3 Below low normal 40.0-48.4 (%) Final MCV 02/28/2023 04:59:00 106.0 82.0-99.5 (fL) Final MCH 02/28/2023 04:59:00 33.9 27.0-34.0 (pg) Final MCHC 02/28/2023 04:59:00 31.9 32.0-36.0 (g/dL) Final RDW 02/28/2023 04:59:00 14.3 11.5-15.5 (%) Final Platelets 02/28/2023 04:59:00 354 140-400 (K/uL) Final MPV 02/28/2023 04:59:00 10.8 6.6-11.1 (fL) Final Nucleated erythrocytes/100 leukocytes [Ratio] in Blood by Automated count 02/28/2023 04:59:00 0 <=0 (/100 WBCs) Final Performing Location [facility] [place] [address] [facility] [address]
--- OUTSIDE RECORDS SUMMARY | 2023-08-24 16:56 | External Medical Summary ---
Author Name Unknown Address Unknown Organization K01[place] [place] [address] [place] [address] Laboratory Report Ordering Provider Test Date Status JEAN-PIERRE NICKERSON 02/28/2023 04:59:00 Final Observation Date Value Abnormality Reference (Units ) Status BUN 02/28/2023 04:59:00 10 6-20 (mg/dL) Final Creatinine 02/28/2023 04:59:00 0.6 0.6-1.2 (mg/dL) Final Glomerular filtration rate/1.73 sq M.predicted [Volume Rate/Area] in Serum, Plasma or Blood by Creatinine-based formula (CKD-EPI) 02/28/2023 04:59:00 >90 >=60 (mL/min) Final eGFR is calculated based on the CKD-EPI 2020 equation SODIUM 02/28/2023 04:59:00 136 135-146 (m mol/L) Final Potassium 02/28/2023 04:59:00 3.9 3.5-5.1 (m mol/L) Final Cl 02/28/2023 04:59:00 103 98-107 (mm ol/L) Final CO2 02/28/2023 04:59:00 25 22-32 (mmo l/L) Final Anion gap 02/28/2023 04:59:00 8 7-15 (mmol /L) Final Glucose 02/28/2023 04:59:00 90 70-120 (mg /dL) Final Calcium 02/28/2023 04:59:00 7.7 Below low normal 8.4 -10.2 (mg/dL) Final Performing Location [facility] [place] [address] [place] [address]
--- OUTSIDE RECORDS SUMMARY | 2023-08-24 16:56 | External Medical Summary ---
Author Name Unknown Address Unknown Organization K01:[facility] - [address] [place] [address] Laboratory Report Ordering Provider Test Date Status JEAN-PIERRE NICKERSON 02/28/2023 04:59:00 Final Observation Date Value Abnormality Reference (Units ) Status Magnesium 02/28/2023 04:59:00 2.3 1.5-2.6 (m g/dL) Final Performing Location [facility] - [address] [place] [address]
--- OUTSIDE RECORDS SUMMARY | 2023-08-24 16:56 | External Medical Summary ---
Author Name Unknown Address Unknown Organization K01[place] [place] [facility] [address] Laboratory Report Ordering Provider Test Date Status ABDULLAHI GRIJALVA 02/27/2023 04:33:00 Final Observation Date Value Abnormality Reference (Units ) Status WBC, Total 02/27/2023 04:33:00 9.11 4.00-10.80 (K/uL) Final RBC 02/27/2023 04:33:00 3.09 4.50-5.25 (M/uL) Final Hemoglobin 02/27/2023 04:33:00 10.5 Below low normal 14.0-16.8 (g/dL) Final HCT 02/27/2023 04:33:00 30.9 Below low normal 40.0-48.4 (%) Final MCV 02/27/2023 04:33:00 100.0 82.0-99.5 (fL) Final MCH 02/27/2023 04:33:00 34.0 27.0-34.0 (pg) Final MCHC 02/27/2023 04:33:00 34.0 32.0-36.0 (g/dL) Final RDW 02/27/2023 04:33:00 14.6 11.5-15.5 (%) Final Platelets 02/27/2023 04:33:00 372 140-400 (K/uL) Final MPV 02/27/2023 04:33:00 10.9 6.6-11.1 (fL) Final Nucleated erythrocytes/100 leukocytes [Ratio] in Blood by Automated count 02/27/2023 04:33:00 0 <=0 (/100 WBCs) Final Performing Location [facility] [place] [address] [facility] [address]
--- OUTSIDE RECORDS SUMMARY | 2023-08-24 16:56 | External Medical Summary ---
Author Name Unknown Address Unknown Organization K01:LABORATORY [address] [address] Laboratory Report Ordering Provider Test Date Status ABDULLAHI GRIJALVA 02/26/2023 04:48:00 Final Observation Date Value Abnormality Reference (Units ) Status WBC, Total 02/26/2023 04:48:00 6.15 4.00-10.80 (K/uL) Final RBC 02/26/2023 04:48:00 2.93 4.50-5.25 (M/uL) Final Hemoglobin 02/26/2023 04:48:00 9.8 Below low normal 14.0-16.8 (g/dL) Final HCT 02/26/2023 04:48:00 30.1 Below low normal 40.0-48.4 (%) Final MCV 02/26/2023 04:48:00 102.7 82.0-99.5 (fL) Final MCH 02/26/2023 04:48:00 33.4 27.0-34.0 (pg) Final MCHC 02/26/2023 04:48:00 32.6 32.0-36.0 (g/dL) Final RDW 02/26/2023 04:48:00 14.4 11.5-15.5 (%) Final Platelets 02/26/2023 04:48:00 332 140-400 (K/uL) Final MPV 02/26/2023 04:48:00 10.6 6.6-11.1 (fL) Final Nucleated erythrocytes/100 leukocytes [Ratio] in Blood by Automated count 02/26/2023 04:48:00 0 <=0 (/100 WBCs) Final Performing Location [facility]ORY [facility] [place] - [address] [facility] [address]
--- OUTSIDE RECORDS SUMMARY | 2023-08-24 16:56 | External Medical Summary ---
Author Name Unknown Address Unknown Organization K01:[facility] - [address] [place] [address] Laboratory Report Ordering Provider Test Date Status JEAN-PIERRE NICKERSON 02/27/2023 04:33:00 Final Observation Date Value Abnormality Reference (Units ) Status Phosphate 02/27/2023 04:33:00 3.1 2.5-4.8 (m g/dL) Final Performing Location [facility] - [address] [place] [address]
--- OUTSIDE RECORDS SUMMARY | 2023-08-24 16:56 | External Medical Summary ---
Author Name Unknown Address Unknown Organization K01:[facility] [place] [address] [place] [address] Laboratory Report Ordering Provider Test Date Status JEAN-PIERRE NICKERSON 02/27/2023 04:33:00 Final Observation Date Value Abnormality Reference (Units ) Status BUN 02/27/2023 04:33:00 14 6-20 (mg/dL) Final Creatinine 02/27/2023 04:33:00 0.8 0.6-1.2 (mg/dL) Final Glomerular filtration rate/1.73 sq M.predicted [Volume Rate/Area] in Serum, Plasma or Blood by Creatinine-based formula (CKD-EPI) 02/27/2023 04:33:00 89 >=60 (mL/min) Final eGFR is calculated based on the CKD-EPI 2020 equation SODIUM 02/27/2023 04:33:00 138 135-146 (m mol/L) Final Potassium 02/27/2023 04:33:00 5.3 Above high normal 3. 5-5.1 (mmol/L) Final Cl 02/27/2023 04:33:00 108 Above high normal 98 -107 (mmol/L) Final CO2 02/27/2023 04:33:00 21 Below low normal 22- 32 (mmol/L) Final Anion gap 02/27/2023 04:33:00 9 7-15 (mmol /L) Final Glucose 02/27/2023 04:33:00 88 70-120 (mg /dL) Final Calcium 02/27/2023 04:33:00 8.4 8.4-10.2 ( mg/dL) Final Performing Location LABORATORY [facility] [place] - [address] [facility] [address]
--- OUTSIDE RECORDS SUMMARY | 2023-08-24 16:56 | External Medical Summary ---
Author Name Unknown Address Unknown Organization K01:[facility] [place] [address] [place] [address] [facility] [address] Laboratory Report Ordering Provider Test Date Status GRACIELA MANRIQUEZ 02/26/2023 14:42:00 Final Assay measures the level of platelet [...] Platelet aggregation ADP induced [Units/volume] in Blood 02/26/2023 14:42:00 13 Below low normal 182-335 (PRU) Final Performing Location [facility] [place] [facility] [address] [facility] [address]
--- OUTSIDE RECORDS SUMMARY | 2023-08-24 16:56 | External Medical Summary ---
Author Name Unknown Address Unknown Organization K01:[facility] - [address] [place] [address] Laboratory Report Ordering Provider Test Date Status JEAN-PIERRE NICKERSON 02/26/2023 04:48:00 Final Observation Date Value Abnormality Reference (Units ) Status Phosphate 02/26/2023 04:48:00 2.6 2.5-4.8 (m g/dL) Final Performing Location [facility] - [address] [place] [address]
--- OUTSIDE RECORDS SUMMARY | 2023-08-24 16:56 | External Medical Summary ---
Author Name Unknown Address Unknown Organization K01:[facility] - [address] [place] [address] [place] [address] Laboratory Report Ordering Provider Test Date Status JEAN-PIERRE NICKERSON 02/26/2023 04:48:00 Final Observation Date Value Abnormality Reference (Units ) Status Magnesium 02/26/2023 04:48:00 2.5 1.5-2.6 (m g/dL) Final Performing Location [facility] - [address] [place] [address]
--- OUTSIDE RECORDS SUMMARY | 2023-08-24 16:56 | External Medical Summary ---
Author Name Unknown Address Unknown Organization K01:[facility] [place] [address] [place] [address] Laboratory Report Ordering Provider Test Date Status JEAN-PIERRE NICKERSON 02/26/2023 04:48:00 Final Observation Date Value Abnormality Reference (Units ) Status BUN 02/26/2023 04:48:00 9 6-20 (mg/dL) Final Creatinine 02/26/2023 04:48:00 0.6 0.6-1.2 (mg/dL) Final Glomerular filtration rate/1.73 sq M.predicted [Volume Rate/Area] in Serum, Plasma or Blood by Creatinine-based formula (CKD-EPI) 02/26/2023 04:48:00 >90 >=60 (mL/min) Final eGFR is calculated based on the CKD-EPI 2020 equation SODIUM 02/26/2023 04:48:00 138 135-146 (m mol/L) Final Potassium 02/26/2023 04:48:00 3.6 3.5-5.1 (m mol/L) Final Cl 02/26/2023 04:48:00 105 98-107 (mm ol/L) Final CO2 02/26/2023 04:48:00 25 22-32 (mmo l/L) Final Anion gap 02/26/2023 04:48:00 8 7-15 (mmol /L) Final Glucose 02/26/2023 04:48:00 79 70-120 (mg /dL) Final Calcium 02/26/2023 04:48:00 8.3 Below low normal 8.4 -10.2 (mg/dL) Final Performing Location [facility] [place] [address] [place] [address]
--- NOTE | 2023-08-24 16:59 | Emergency Department Note ---
Impression & Plan Fall from stationary vehicle, Traumatic compression fracture of T7 vertebra, Closed compression fracture of L2 vertebra, Chest wall muscle strain, COPD (chronic obstructive pulmonary disease), Hypertensive urgency ED Provider Note NAME: RONALD VILLALOBOS AGE: 83 SEX: M ARRIVES VIA: Ambulance INFORMANT: Patient ED PROVIDER(S): Babatunde Bacon MD CHIEF COMPLAINT: Chest pain, fall PLAN: Disposition: Admit MEDICAL DECISION MAKING: The patient is a pleasant 83-year-old gentleman with a past medical history of CAD, history of PCI, GERD, BPH, hypertension, hyperlipidemia, COPD on 2 L nasal cannula at night who presents to the emergency department via EMS for evaluation of "crushing chest pain" after having a fall when getting out of a truck. He feels he probably did hit his head but denies loss of consciousness. He reports feeling healthy prior today and denies fevers, chills, cough, congestion, GI or symptoms. Of note, I did discuss the patient's case with EMS on medical command and given his his cardiac history and description of pain he did receive nitroglycerin with close monitoring of his blood pressure. Patient reports he recently had arterial bypass, which upon further assessment relates to an axillary bifemoral bypass. On my evaluation the patient is uncomfortable but no acute distress, afebrile blood pressure in the 70s after being treated with nitroglycerin by EMS for chest pain with blood pressures that were stable initially but upon reassessment on arrival were noted to be low. He was mentating normally however and blood pressure did improve with time and gentle hydration. Of note, the patient's awake overnight monitor did suggest possible development of bradycardia though this was likely artifactual as lead was changed and atrial sense-ventricular paced rhythm was subsequently normal. He appears clinically dry. He has reproducible left anterior chest wall tenderness without bony crepitus. He has mild mid thoracic and lumbar paraspinal discomfort without midline tenderness palpation or step-offs. EKG demonstrates atrial sensed, ventricular paced rhythm, 81 bpm, no ectopy, no overt acute ischemia. WBC 11.5, nonspecific. H/H 12.2/37.5 improved from prior. Platelets within normal limits. Chemistry without metabolic acidosis. BUN/creatinine 27, consistent the patient's clinical dry appearance. AST 43, nonspecific LFTs otherwise unremarkable. CPK within normal limits. High-sensitivity troponin 12.8, within normal limits. CT of the head and C-spine negative for acute abnormalities. CT of the chest, abdomen pelvis and T and L-spine performed. Findings are notable for an acute burst type compression fracture of L2 with only minimal retropulsion of fragments with no posterior involvement identified and no significant central canal stenosis. There is question of minimal subacute superior endplate compression fracture of T7. Incidental note is made of 2 spiculated pulmonary nodules in the right upper and right lower lobes measuring 10 mm and are unchanged from October of this year. An irregular nodule measuring 8 mm in the right middle lobe is new from prior. Nonemergent pulmonary follow-up is recommended. The patient's recent right axillary bifemoral bypass is patent. An incidental 3.6 x 3.9 cm infrarenal abdominal aortic aneurysm is seen. I did review the patient's CT imaging with the patient and his partner at the bedside. The patient did have paperwork with him from his recent PCP visit on 08/21 where he had outpatient x-ray which had diagnosed an L2 compression fracture which likely correlates to the patient's L2 fracture today. However, superior endplate compression fracture of T7 likely is new from today. We did discuss option for admission but the patient initially felt his pain was controlled and both he and his partner preferred continued outpatient management as he does have home nursing and therapy coming to his home twice a week. Plan for follow-up outpatient with orthopedic spine and the patient was prepared for discharge. However, upon receiving his paperwork he was reporting return of his pain and was feeling as though he was short of breath from this. Thus, he did agree at this time to proceed with admission for pain control and possible placement. Case was discussed with Dr. Ferguson, [facility] hospitalist, who will evaluate the patient for admission. Upon reevaluation the patient did feel some improvement with DuoNeb and IV morphine though suspect patient's flare of pain likely contributed to hypertensive urgency as his blood pressure did acutely rise to the 180s/100s. Thus, he was given 0.4 mg of sublingual nitroglycerin for afterload reduction. His blood pressure was somewhat sensitive to this and did transiently become hypotensive to the 70s/60s but quickly did recover and was given to 250 cc normal saline bolus. Patient did report his pain and shortness of breath did substantially improve at this time. Repeat EKG is again paced and unchanged. Repeat troponin ordered and is pending. Admitting team updated. Triage Nursing notes reviewed and agree them. Prior/external medical records reviewed Vital Signs: reviewed Differential diagnosis: Fracture, dislocation, contusion, intra-abdominal, pneumothorax, intrathoracic, intracranial, neurologic, compartment syndrome, rhabdomyolysis, as well as other pathologies. ER treatment provided: See below. Diagnostics interpreted by me: ECG: Atrial sensed, ventricular paced rhythm, 81 bpm, no ectopy, no overt acute ischemia. Cardiac Monitoring: An order for continuous cardiac monitoring was placed and demonstrated Atrial sensed, ventricular paced rhythm, 81 bpm Laboratory studies: See below Imaging studies: See below Consultation(s): Dr. Ferguson, [facility] hospitalist. HPI: The patient is a pleasant 83-year-old gentleman with a past medical history of CAD, history of PCI, GERD, BPH, hypertension, hyperlipidemia, COPD on 2 L nasal cannula at night who presents to the emergency department via EMS for evaluation of "crushing chest pain" after having a fall when getting out of a truck. He feels he probably did hit his head but denies loss of consciousness. He reports feeling healthy prior today and denies fevers, chills, cough, congestion, GI or symptoms. Of note, I did discuss the patient's case with EMS on medical command and given his his cardiac history and description of pain he did receive nitroglycerin with close monitoring of his blood pressure. Patient reports he recently had arterial bypass, which upon further assessment relates to an axillary bifemoral bypass. ROS: See above HPI for pertinent positives & negatives. A total of 10 systems reviewed and were otherwise negative. VITALS:See Below PHYSICAL EXAMINATION: GENERAL: Awake, alert, uncomfortable-appearing, in no distress HENT: Normocephalic, atraumatic. Oropharynx with dry mucous membranes and otherwise unremarkable. EYES: Normal conjunctiva. Sclera non-icteric. NECK: Supple. No nuchal rigidity. FROM. No JVD. RESPIRATORY: Clear to auscultation. CARDIAC: Regular rate, normal rhythm. Extremities warm and well perfused. Pulses equal. ABDOMEN: Soft, non-distended. No tenderness to palpation. No rebound or guarding. No masses. RECTAL: Deferred. MUSCULOSKELETAL: Reproducible left anterior chest wall tenderness without bony crepitus. He has mild mid thoracic and lumbar paraspinal discomfort without midline tenderness palpation or step-offs. LOWER EXTREMITIES: Calves are equal size bilaterally and non-tender. No edema. No discoloration. NEURO: Normal sensorium. No sensory or motor deficits noted. SKIN: No rash or jaundice noted. Babatunde Bacon MD Past Med/Surg History Medical History Peripheral arterial disease status post right femoral-popliteal Viabahn for stenting Pulmonary nodules AAA (abdominal aortic aneurysm) Chronic systolic heart failure Paroxysmal atrial fibrillation Rib fracture 07/2022: "Mildly displaced right lateral 10th rib fracture" History of convulsions 2002 per [facility] records Neck pain History of UT (myocardial infarction) BPH (benign prostatic hyperplasia) ICD (implantable cardioverter-defibrillator) in place Hyperlipidemia Hypertension GERD (gastroesophageal reflux disease) Status post laparotomy with repair Perforated gastric ulcer CAD (coronary artery disease) Post PCI to the circumflex in 2001 COPD (chronic obstructive pulmonary disease) Surgical History History of hip surgery 11/19/22 (ADIN): R intertrochanteric fx tx'd with cephalomedullary nail History of implantable cardioverter-defibrillator (ICD) placement History of laparotomy Family History Other Family history non-contributory Social History Smoking Status: Former smoker Tobacco Type: Cigars Cigarettes Per Day: 3-4; Hx Alcohol Use: No Hx Substance Use: No Preferred Language: Macanese Communication Ability: Effective 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 Home Meds Home Medications Medication Instructions Recorded Confirmed albuterol sulfate 90 mcg/actuation 2 puff inhalation Q4H PRN 11/17/22 08/24/23 aerosol inhaler Shortness Of Breath aspirin 81 mg tablet,delayed 81 mg PO DAILY 11/17/22 08/24/23 release budesonide-formoterol HFA 160 2 inh inhalation BID 11/17/22 08/24/23 mcg-4.5 mcg/actuation aerosol inhaler (Symbicort) carbamazepine 200 mg tablet 200 mg PO TID 11/17/22 08/24/23 cholecalciferol (vitamin D3) 25 50 mcg PO DAILY 11/17/22 08/24/23 mcg (1,000 unit) tablet famotidine 20 mg tablet 20 mg PO DAILYBB 11/17/22 08/24/23 finasteride 5 mg tablet 5 mg PO DAILY 11/17/22 08/24/23 fluticasone propionate 50 2 spray intranasal DAILY 11/17/22 08/24/23 mcg/actuation nasal spray,suspension folic acid 1 mg tablet 1 mg PO DAILY 11/17/22 08/24/23 furosemide 20 mg tablet 20 mg PO DAILY 11/17/22 08/24/23 metoprolol succinate 25 mg 12.5 mg PO DAILY 11/17/22 08/24/23 tablet,extended release 24 hr pantoprazole 40 mg tablet,delayed 40 mg PO BID 11/17/22 08/24/23 release potassium chloride 10 mEq 10 meq PO DAILY 11/17/22 08/24/23 tablet,extended release(part/cryst) (Klor-Con M) simvastatin 20 mg tablet 40 mg PO QPM 11/17/22 08/24/23 tamsulosin 0.4 mg capsule 0.8 mg PO QAM 11/17/22 08/24/23 tizanidine 4 mg tablet 4 mg PO Q8H PRN MUSCLE SPASMS 11/17/22 08/24/23 acetaminophen 500 mg tablet 1,000 mg PO Q8 PRN Fever Or Pain 08/24/23 08/24/23 (Tylenol Extra Strength) lorazepam 0.5 mg tablet 0.5 mg PO Q12 PRN Anxiety 08/24/23 08/24/23 methocarbamol 750 mg tablet 750 mg PO TID 08/24/23 08/24/23 oxycodone 10 mg tablet 10 mg PO Q6 PRN Pain 08/24/23 08/24/23 vit no.95-ferrous 1 tab PO QAM 08/24/23 08/24/23 fumarate 28 mg-folic acid 800 mcg tablet () Previous Rx's Medication Instructions Recorded polyethylene glycol 3350 17 gram 17 g PO DAILY #30 ea 11/22/22 oral powder packet (Miralax) sennosides 8.6 mg-docusate sodium 2 tab PO HS #20 tabs 11/22/22 50 mg tablet (Senokot-S) Results & Data (ED) Vital Signs Vital Signs - 24 hr 08/24/23 16:51 08/24/23 17:00 08/24/23 17:15 Temperature 36.4 C L Temperature Source Oral Pulse Rate 74 79 72 Pulse Rate from SpO2 Sensor 86 71 Respiratory Rate 24 26 H 22 Respiratory Effort / Characteristics Non-Labored Spontaneous Respiratory Depth Normal Blood Pressure 70/47 L 63/45 L 94/60 L Blood Pressure Mean 54 51 71 Pulse Oximetry 93 88 L 93 Oxygen Delivery Method Room Air Room Air Nasal Cannula Oxygen Flow Rate 2 Sepsis Recent Fever Within 48 Hours No Sepsis New/Unexplained Change in Mental Status N/A Sepsis Action Taken by Nursing No Action Required 08/24/23 17:30 08/24/23 17:38 08/24/23 17:45 Temperature Temperature Source Pulse Rate 74 81 71 Pulse Rate from SpO2 Sensor 74 Respiratory Rate 19 24 Respiratory Effort / Characteristics Respiratory Depth Blood Pressure 88/51 L 94/56 L Blood Pressure Mean 63 68 Pulse Oximetry 98 Oxygen Delivery Method Nasal Cannula Oxygen Flow Rate 2 Sepsis Recent Fever Within 48 Hours Sepsis New/Unexplained Change in Mental Status Sepsis Action Taken by Nursing 08/24/23 18:04 08/24/23 18:15 08/24/23 18:30 Temperature Temperature Source Pulse Rate 71 68 66 Pulse Rate from SpO2 Sensor 66 67 67 Respiratory Rate 22 24 23 Respiratory Effort / Characteristics Respiratory Depth Blood Pressure 92/62 L 102/57 L 106/57 L Blood Pressure Mean 72 72 73 Pulse Oximetry 93 99 100 Oxygen Delivery Method Nasal Cannula Nasal Cannula Nasal Cannula Oxygen Flow Rate 2 2 2 Sepsis Recent Fever Within 48 Hours Sepsis New/Unexplained Change in Mental Status Sepsis Action Taken by Nursing 08/24/23 18:45 08/24/23 19:00 08/24/23 19:15 Temperature Temperature Source Pulse Rate 68 66 66 Pulse Rate from SpO2 Sensor 68 65 Respiratory Rate 23 20 24 Respiratory Effort / Characteristics Respiratory Depth Blood Pressure 103/56 L 108/65 115/66 Blood Pressure Mean 71 79 82 Pulse Oximetry 99 99 Oxygen Delivery Method Nasal Cannula Nasal Cannula Oxygen Flow Rate 2 2 Sepsis Recent Fever Within 48 Hours Sepsis New/Unexplained Change in Mental Status Sepsis Action Taken by Nursing 08/24/23 20:53 Temperature Temperature Source Pulse Rate 71 Pulse Rate from SpO2 Sensor Respiratory Rate Respiratory Effort / Characteristics Respiratory Depth Blood Pressure Blood Pressure Mean Pulse Oximetry Oxygen Delivery Method Oxygen Flow Rate Sepsis Recent Fever Within 48 Hours Sepsis New/Unexplained Change in Mental Status Sepsis Action Taken by Nursing Laboratory Data Attestation: I reviewed the patient's lab results. 08/24/23 16:50 08/24/23 16:50 Lab Results 08/24/23 Range/Units 16:50 WBC 11.55 H (4.8-10.8) K/ul RBC 3.69 L (4.70-6.10) M/uL Hgb 12.2 L (14.0-18.0) g/dl Hct 37.5 L (42.0-52.0) % MCV 101.6 H (80.0-100.0) fL MCH 33.1 (25.0-34.0) pg MCHC 32.5 (32.0-36.0) g/dL RDW Std Deviation 55.1 H (36.4-46.3) fL RDW Coeff of Risa 14.5 (11.5-14.5) % Plt Count 273 (130-400) K/uL MPV 11.0 (9.4-12.4) fL Immature Gran % (Auto) 2.1 % Neut % (Auto) 73.4 % Lymph % (Auto) 13.7 % Will % (Auto) 5.9 % Eos % (Auto) 4.6 % Baso % (Auto) 0.3 % Neut # (Auto) 8.48 H (1.40-6.50) K/uL Lymph # (Auto) 1.58 (1.20-3.40) K/uL Will # (Auto) 0.68 H (0.11-0.59) K/uL Eos # (Auto) 0.53 H (0.00-0.50) K/uL Baso # (Auto) 0.04 (0.00-0.20) K/uL Immature Gran # (Auto) 0.24 H (0.01-0.20) K/uL PT 11.4 (9.0-12.0) Seconds INR 1.0 (0.9-1.1) Sodium 137 (136-145) mmol/L Potassium 4.4 (3.5-5.1) mmol/L Chloride 99 (98-107) mmol/L Carbon Dioxide 28 (21-32) mmol/L Anion Gap 10 (3-11) BUN 19 (6-23) mg/dl Creatinine 0.69 (0.6-1.4) mg/dl Est Cr Clr Drug Dosing 52.3 ml/min Est GFR ( Amer) 101.0 ml/min Est GFR (Non-Af Amer) 87.2 ml/min BUN/Creatinine Ratio 27.5 H (10-20) Glucose 127 H (70-99(Fasting)) mg/dl Calcium 8.9 (8.6-10.3) mg/dl Total Bilirubin 0.5 (0.2-1.0) mg/dl AST 43 H (13-39) U/L ALT 50 (7-52) U/L Alkaline Phosphatase 231 H (34-104) U/L Total Creatine Kinase 98 (30-223) U/L Troponin I High Sens 12.8 (0-20) pg/ml Total Protein 7.0 (6.0-8.3) gm/dl Albumin 3.6 (3.4-5.0) gm/dl Globulin 3.4 (2.5-4.0) gm/dl Albumin/Globulin Ratio 1.1 (0.9-2) Administered Medications Discontinued Medications Albuterol (Albuterol 0.083% Nebu Soln 3 Ml Vial) 2.5 mg NEB NOW STA; Protocol Stop: 08/24/23 21:27 Last Admin: 08/24/23 21:42 Dose: 2.5 mg Documented By: MAMI Fentanyl Citrate (Fentanyl Citrate Pf 100 Mcg/2 Ml Vial) 50 mcg IV NOW STA Stop: 08/24/23 16:56 Last Admin: 08/24/23 17:29 Dose: 50 mcg Documented By: BRET Fentanyl Citrate (Fentanyl Citrate Pf 100 Mcg/2 Ml Vial) 50 mcg IV NOW STA Stop: 08/24/23 18:32 Last Admin: 08/24/23 18:36 Dose: 50 mcg Documented By: BRET Sodium Chloride (Nss) 500 mls @ 999 mls/hr IV .Q31M SIXTO Stop: 08/24/23 17:30 Last Infusion: 08/24/23 17:29 Dose: Infused Documented By: Admin: 08/24/23 17:02 Dose: 999 mls/hr Documented By: BRET Acetaminophen (Ofirmev) 1,000 mg in 100 mls @ 400 mls/hr IV NOW STA Stop: 08/24/23 17:09 Last Infusion: 08/24/23 17:29 Dose: Infused Documented By: Admin: 08/24/23 17:13 Dose: 400 mls/hr Documented By: BRET Ioversol (Optiray 320 500ml) 80 ml IV ONCE ONE Stop: 08/24/23 17:52 Last Admin: 08/24/23 17:52 Dose: 80 ml Documented By: SAM Morphine Sulfate (Morphine Sulfate 2 Mg/Ml Carp) 2 mg IV NOW STA Stop: 08/24/23 21:27 Last Admin: 08/24/23 21:42 Dose: 2 mg Documented By: MAMI Nitroglycerin (Nitroglycerin Sl 0.4 Mg/Tab Tab) Confirm Administered Dose 0.4 mg .ROUTE .STK-MED ONE Stop: 08/24/23 21:47 Last Admin: 08/24/23 21:48 Dose: 0.4 mg Documented By: MAMI Oxycodone HCl (Oxycodone Hcl Ir 5 Mg Tab (Immediate Release)) 5 mg PO NOW STA Stop: 08/24/23 21:04 Last Admin: 08/24/23 21:10 Dose: 5 mg Documented By: MAMI Imaging Data Radiologist's Impression: Abdomen/Pelvis CT 08/24/23 16:56 CT SCAN OF THE CHEST, ABDOMEN, AND PELVIS WITH IV CONTRAST; CT SCAN OF THE THORACIC SPINE WITH IV CONTRAST; CT SCAN OF THE LUMBAR SPINE WITH IV CONTRAST CLINICAL HISTORY: Trauma. Fall. COMPARISON STUDY: Chest CT dated 11/18/2022. TECHNIQUE: Following the IV administration of 80 of Optiray 320, CT scan of the chest, abdomen, and pelvis was performed from the thoracic inlet to the proximal femora. Additionally, CT scan of the thoracic spine is performed from the lower cervical spine to the upper lumbar spine and CT scan of the lumbar spine is performed from the lower thoracic spine to the sacrum. Images for these examinations are reviewed in the axial, sagittal, and coronal planes. IV contrast was administered without complication. A dose lowering technique was utilized adhering to the principles of ALARA. CT DOSE: 2319.42 mGy.cm FINDINGS: CHEST: Thyroid: Normal in size and heterogeneous in attenuation. Thoracic aorta: There is atherosclerotic calcification of the thoracic aorta. There is ectasia of the ascending thoracic aorta which measures up to 3.9 cm in diameter. The remainder of the thoracic aorta is normal in caliber comment the arch demonstrates standard 3-vesselanatomy. No dissection is seen. Pulmonary vasculature: The pulmonary trunk is normal in caliber. There are no filling defects identified in the central pulmonary vessels to indicate pulmonary embolus. Note that this examination was not protocoled for evaluation of the pulmonary arteries. Heart: A pacemaker is noted in the left chest wall. The heart is top normal in size and without pericardial effusion. The coronary arteries are densely calcified. Lungs and pleural spaces: Emphysematous change is noted. Patchy ground glass consolidation throughout the right upper lobe is new from 11/18/2022. No pleural effusion or pneumothorax is identified. The trachea and central airways are clear. An 8 mm spiculated nodule in the right lower lobe on image #118 and a 10 mm spiculated nodule at the right apex on image #39 are unchanged. An 8 mm right middle lobe nodule on image #169 was not seen previously. Mediastinum: There is no mediastinal hematoma or lymphadenopathy. Pam: Clear. Axillae: There is no axillary lymphadenopathy. Bony thorax: The skeletal structures are osteopenic. See below for dedicated assessment of the thoracic spine. No acute/displaced rib fracture is identified. There are chronic/healed bilateral rib fractures. No lytic or blastic lesions are identified. THORACIC SPINE: There is no evidence of acute fracture or malalignment involving the thoracic spine. Question a minimal subacute superior endplate compression fracture of T7. This is best seen on sagittal image #37. There are mild chronic compression deformities of T2, T3, and T4. Vertebral body height there is otherwise maintained throughout the thoracic spine. Alignment is preserved. The transverse and spinous processes are intact. There is mild hyperkyphosis and the upper thoracic region. Small anterior osteophytes are seen throughout. There is mild multilevel degenerative disc space narrowing. There is no evidence of large disc herniation or high-grade central canal stenosis by CT. The paraspinous soft tissues are normal in appearance. ABDOMEN AND PELVIS: Liver: The contrast-enhanced liver is normal in size, contour, and attenuation. There is no intrahepatic biliary ductal dilatation. The hepatic veins and portal veins are patent. Gallbladder: Unremarkable. Spleen: Normal in size and attenuation. Pancreas: Unremarkable. Adrenal glands: Unremarkable. Kidneys: The contrast enhanced kidneys demonstrate mild cortical atrophy and are without hydronephrosis. The kidneys enhance symmetrically. A 5.2 cm cyst arises from the lower pole of the right kidney. Additional 1.3 cm cyst is seen in the right upper pole. Abdominal vasculature: There is advanced atherosclerotic calcification of the abdominal aorta. An infrarenal abdominal aortic aneurysm measures 3.6 x 3.9 cm (AP x transverse). The abdominal aorta is patent. The minimum patent luminal diameter measures up to 1.1 cm. A right axillary bifemoral bypass is patent. There is intraluminal thrombus with moderate to high-grade stenosis within the left aspect of the femorofemoral bypass. This is best seen on axial image #244. There is advanced atherosclerotic plaque and irregularity throughout the iliac arteries. 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 There is complete thrombosis of the proximal right superficial femoral artery. There is also likely complete thrombosis of the left proximal superficial femoral artery. Bowel: There is moderate colonic fecal retention. No bowel obstruction is seen. There is sigmoid diverticulosis without CT evidence of acute diverticulitis. The appendix is not visualized. Peritoneum: There is no intraperitoneal free air or abdominal ascites. Lymphadenopathy: None. Pelvic viscera: Evaluation of the pelvis is degraded by hardware in the right proximal femur. The prostate gland is enlarged and heterogeneous. The bladder wall is thickened/trabeculated indicating chronic outlet obstruction. Skeletal structures: The skeletal structures are osteopenic. See below for dedicated assessment of the lumbar spine. No lytic or blastic lesions are seen. There is posttraumatic deformity of the right proximal femur with intertrochanteric and intramedullary nails in place. There is incomplete bony fusion of the fragments. There is a chronic deformity of the sacrum. The bony pelvis and left proximal femur otherwise appear intact. Arthritic change is noted in the hips. LUMBAR SPINE: There is an acute burst-type compression fracture of T12. There is mild loss of height. There are only minimally retropulsed fragments by up to 3 mm. Fracture does not appear to involve the posterior elements. There is paravertebral edema. There is an age indeterminate but chronic-appearing superior end plate compression deformity of L4. Vertebral body height is otherwise maintained throughout the lumbar spine. Alignment is preserved. The transverse and spinous processes are intact. There is no spondylolysis. There is severe disc space narrowing at L5-S1. Only mild narrowing is seen at the remaining lumbar levels. Posterior disc ostomy complexes are seen all lumbar levels. There is likely at least mild central canal stenosis at L3-L4. The paraspinous soft tissues are within normal limits. IMPRESSION: 1. There is no acute posttraumatic intrathoracic abnormality. 2. There is no pleural effusion or pneumothorax. 3. Patchy groundglass consolidation in the right upper lobe is new from previous and likely represents pneumonia/aspiration pneumonitis. Clinical correlation will be required. 4. There is no evidence of solid organ injury in the abdomen or pelvis. 5. There is an acute burst-type compression fracture of L2. There is only minimal retropulsion of fragments. No posterior element involvement is identified and there is no significant central canal stenosis at this level. 6. Question a minimal subacute superior endplate compression fracture of T7. Correlate for point tenderness. 7. No additional acute fracture is seen involving the thoracic or lumbar spine. Chronic thoracolumbar compression deformities are discussed above. 8. Emphysema. 9. There are 2 spiculated pulmonary nodules seen in the right upper and right lower lobes which measure up to 10 mm and are unchanged from 11/18/2022. These are suspicious for neoplasms. An 8 mm irregular nodule in the right middle lobe is new from previous. Nonemergent follow-up with pulmonology is recommended, as is attention to these nodules at follow-up. 10. A right axillary bifemoral bypass is patent. 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 11. There is a 3.6 x 3.9 cm infrarenal abdominal aortic aneurysm. 12. Additional findings as above. ACT 112: Positive. There are findings on this exam that require communication between the performing entity and the patient following Patient Test Result Information Act ([place] Act 112) guidelines. Electronically signed by: Lamin Aragon M.D. 08/24/2023 7:[address] 08/24/23 16:56 CT SCAN OF THE CERVICAL SPINE CLINICAL HISTORY: Trauma. COMPARISON STUDY: CT of the cervical spine dated 11/18/2022. TECHNIQUE: CT scan of the cervical spine is performed from the skull base to the upper thoracic spine. Images are reviewed in the axial, sagittal, and coronal planes. IV contrast was not administered for this examination. A dose lowering technique was utilized adhering to the principles of ALARA. FINDINGS: Skeletal structures: The skeletal structures are osteopenic. There is no evidence of fracture or subluxation involving the cervical spine. Vertebral body height is maintained. There is 4 mm anterolisthesis at C3-C4. Minimal retrolisthesis is noted at C4-C5. This is unchanged from previous. There is straightening of the cervical lordosis with reversal centered at C4. Large anterior osteophytes are seen throughout. The odontoid process and lateral masses are intact. The atlantoaxial articulation is preserved noting productive degenerative change. The spinous processes appear intact. There are mild chronic compression deformities in the upper thoracic region. There is moderate multilevel cervical spondylosis. Uncovertebral facet arthropathy contribute to neural foraminal stenosis at several levels. Intervertebral discs: There is severe disc space narrowing at C3-C4, C4-C5, C5- C6. Moderate narrowing is seen at C6-C7. There is multilevel endplate sclerosis. Central canal: Posterior disc osteophyte complexes are seen at all cervical levels between C3-C4 and C6-C7. This likely contributes to multilevel acquired compromise of the central canal. Soft tissues: The prevertebral and paraspinous soft tissues are within normal limits. There is advanced atherosclerotic calcification of the carotid bulbs. A stent is noted in the left carotid artery. Calvarium: The visualized calvarium at the skull base appears intact. Brain parenchyma: Partially visualized brain parenchyma at the skull base is within normal limits. Sinuses and mastoids: The visualized paranasal sinuses are clear. The mastoid air cells are well pneumatized. Lung apices: Emphysematous change is noted. Apical lung parenchyma is otherwise clear as imaged. IMPRESSION: 1. There is no evidence of fracture or subluxation involving the cervical spine. 2. Osteopenia and spondylotic change as above. ACT 112: Negative or not required by law. Electronically signed by: Lamin Aragon M.D. 08/24/2023 6:[address] 08/24/23 16:56 CT SCAN OF THE CHEST, ABDOMEN, AND PELVIS WITH IV CONTRAST; CT SCAN OF THE THORACIC SPINE WITH IV CONTRAST; CT SCAN OF THE LUMBAR SPINE WITH IV CONTRAST CLINICAL HISTORY: Trauma. Fall. COMPARISON STUDY: Chest CT dated 11/18/2022. TECHNIQUE: Following the IV administration of 80 of Optiray 320, CT scan of the chest, abdomen, and pelvis was performed from the thoracic inlet to the proximal femora. Additionally, CT scan of the thoracic spine is performed from the lower cervical spine to the upper lumbar spine and CT scan of the lumbar spine is performed from the lower thoracic spine to the sacrum. Images for these examinations are reviewed in the axial, sagittal, and coronal planes. IV contrast was administered without complication. A dose lowering technique was utilized adhering to the principles of ALARA. CT DOSE: 2319.42 mGy.cm FINDINGS: CHEST: Thyroid: Normal in size and heterogeneous in attenuation. Thoracic aorta: There is atherosclerotic calcification of the thoracic aorta. There is ectasia of the ascending thoracic aorta which measures up to 3.9 cm in diameter. The remainder of the thoracic aorta is normal in caliber comment the arch demonstrates standard 3-vesselanatomy. No dissection is seen. Pulmonary vasculature: The pulmonary trunk is normal in caliber. There are no filling defects identified in the central pulmonary vessels to indicate pulmonary embolus. Note that this examination was not protocoled for evaluation of the pulmonary arteries. Heart: A pacemaker is noted in the left chest wall. The heart is top normal in size and without pericardial effusion. The coronary arteries are densely calcified. Lungs and pleural spaces: Emphysematous change is noted. Patchy ground glass consolidation throughout the right upper lobe is new from 11/18/2022. No pleural effusion or pneumothorax is identified. The trachea and central airways are clear. An 8 mm spiculated nodule in the right lower lobe on image #118 and a 10 mm spiculated nodule at the right apex on image #39 are unchanged. An 8 mm right middle lobe nodule on image #169 was not seen previously. Mediastinum: There is no mediastinal hematoma or lymphadenopathy. Pam: Clear. Axillae: There is no axillary lymphadenopathy. Bony thorax: The skeletal structures are osteopenic. See below for dedicated assessment of the thoracic spine. No acute/displaced rib fracture is identified. There are chronic/healed bilateral rib fractures. No lytic or blastic lesions are identified. THORACIC SPINE: There is no evidence of acute fracture or malalignment involving the thoracic spine. Question a minimal subacute superior endplate compression fracture of T7. This is best seen on sagittal image #37. There are mild chronic compression deformities of T2, T3, and T4. Vertebral body height there is otherwise maintained throughout the thoracic spine. Alignment is preserved. The transverse and spinous processes are intact. There is mild hyperkyphosis and the upper thoracic region. Small anterior osteophytes are seen throughout. There is mild multilevel degenerative disc space narrowing. There is no evidence of large disc herniation or high-grade central canal stenosis by CT. The paraspinous soft tissues are normal in appearance. ABDOMEN AND PELVIS: Liver: The contrast-enhanced liver is normal in size, contour, and attenuation. There is no intrahepatic biliary ductal dilatation. The hepatic veins and portal veins are patent. Gallbladder: Unremarkable. Spleen: Normal in size and attenuation. Pancreas: Unremarkable. Adrenal glands: Unremarkable. Kidneys: The contrast enhanced kidneys demonstrate mild cortical atrophy and are without hydronephrosis. The kidneys enhance symmetrically. A 5.2 cm cyst arises from the lower pole of the right kidney. Additional 1.3 cm cyst is seen in the right upper pole. Abdominal vasculature: There is advanced atherosclerotic calcification of the abdominal aorta. An infrarenal abdominal aortic aneurysm measures 3.6 x 3.9 cm (AP x transverse). The abdominal aorta is patent. The minimum patent luminal diameter measures up to 1.1 cm. A right axillary bifemoral bypass is patent. There is intraluminal thrombus with moderate to high-grade stenosis within the left aspect of the femorofemoral bypass. This is best seen on axial image #244. There is advanced atherosclerotic plaque and irregularity throughout the iliac arteries. 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 There is complete thrombosis of the proximal right superficial femoral artery. There is also likely complete thrombosis of the left proximal superficial femoral artery. Bowel: There is moderate colonic fecal retention. No bowel obstruction is seen. There is sigmoid diverticulosis without CT evidence of acute diverticulitis. The appendix is not visualized. Peritoneum: There is no intraperitoneal free air or abdominal ascites. Lymphadenopathy: None. Pelvic viscera: Evaluation of the pelvis is degraded by hardware in the right proximal femur. The prostate gland is enlarged and heterogeneous. The bladder wall is thickened/trabeculated indicating chronic outlet obstruction. Skeletal structures: The skeletal structures are osteopenic. See below for dedicated assessment of the lumbar spine. No lytic or blastic lesions are seen. There is posttraumatic deformity of the right proximal femur with intertrochanteric and intramedullary nails in place. There is incomplete bony fusion of the fragments. There is a chronic deformity of the sacrum. The bony pelvis and left proximal femur otherwise appear intact. Arthritic change is noted in the hips. LUMBAR SPINE: There is an acute burst-type compression fracture of T12. There is mild loss of height. There are only minimally retropulsed fragments by up to 3 mm. Fracture does not appear to involve the posterior elements. There is paravertebral edema. There is an age indeterminate but chronic-appearing superior end plate compression deformity of L4. Vertebral body height is otherwise maintained throughout the lumbar spine. Alignment is preserved. The transverse and spinous processes are intact. There is no spondylolysis. There is severe disc space narrowing at L5-S1. Only mild narrowing is seen at the remaining lumbar levels. Posterior disc ostomy complexes are seen all lumbar levels. There is likely at least mild central canal stenosis at L3-L4. The paraspinous soft tissues are within normal limits. IMPRESSION: 1. There is no acute posttraumatic intrathoracic abnormality. 2. There is no pleural effusion or pneumothorax. 3. Patchy groundglass consolidation in the right upper lobe is new from previous and likely represents pneumonia/aspiration pneumonitis. Clinical correlation will be required. 4. There is no evidence of solid organ injury in the abdomen or pelvis. 5. There is an acute burst-type compression fracture of L2. There is only minimal retropulsion of fragments. No posterior element involvement is identified and there is no significant central canal stenosis at this level. 6. Question a minimal subacute superior endplate compression fracture of T7. Correlate for point tenderness. 7. No additional acute fracture is seen involving the thoracic or lumbar spine. Chronic thoracolumbar compression deformities are discussed above. 8. Emphysema. 9. There are 2 spiculated pulmonary nodules seen in the right upper and right lower lobes which measure up to 10 mm and are unchanged from 11/18/2022. These are suspicious for neoplasms. An 8 mm irregular nodule in the right middle lobe is new from previous. Nonemergent follow-up with pulmonology is recommended, as is attention to these nodules at follow-up. 10. A right axillary bifemoral bypass is patent. 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 11. There is a 3.6 x 3.9 cm infrarenal abdominal aortic aneurysm. 12. Additional findings as above. ACT 112: Positive. There are findings on this exam that require communication between the performing entity and the patient following Patient Test Result Information Act ([place] Act 112) guidelines. Electronically signed by: Lamin Aragon M.D. 08/24/2023 7:[address] 08/24/23 16:56 CT SCAN OF THE BRAIN WITHOUT IV CONTRAST CLINICAL HISTORY: Trauma. Fall. COMPARISON STUDY: CT of the brain dated 11/18/2022. TECHNIQUE: Unenhanced axial CT scan of the brain is performed from the vertex to the skull base. A dose lowering technique was utilized adhering to the principles of ALARA. FINDINGS: Brain parenchyma: There is age-related involutional change noting moderate subcortical and periventricular microangiopathic disease. There is no hemorrhage, mass effect, or evidence of acute territorial ischemia by CT criteria. Frederick-white matter differentiation is preserved. No extra-axial fluid collection is seen. Ventricles, sulci, cisterns: Prominent secondary to involutional change. Intracranial vasculature: There is atherosclerotic calcification of the cavernous carotid and vertebral artery. Calvarium: The skeletal structures are osteopenic. No depressed calvarial fracture is identified. Soft tissues: A metallic foreign body is partially visualized in the left facial soft tissues. There may also be a punctate metallic foreign body in the region of the left orbit. Sinuses and mastoids: The visualized paranasal sinuses are clear. The mastoid air cells are well pneumatized. Orbits: The bony orbits are grossly intact. There are bilateral ocular lens implants. IMPRESSION: 1 There is no hemorrhage, mass effect, or evidence of acute territorial ischemia by CT criteria. 2. Suspect a punctate metallic foreign body in the region of the left orbit. Note that this is likely a contraindication to MRI. ACT 112: Negative or not required by law. Electronically signed by: Lamin Aragon M.D. 08/24/2023 6:[address] 08/24/23 16:56 CT SCAN OF THE CHEST, ABDOMEN, AND PELVIS WITH IV CONTRAST; CT SCAN OF THE THORACIC SPINE WITH IV CONTRAST; CT SCAN OF THE LUMBAR SPINE WITH IV CONTRAST CLINICAL HISTORY: Trauma. Fall. COMPARISON STUDY: Chest CT dated 11/18/2022. TECHNIQUE: Following the IV administration of 80 of Optiray 320, CT scan of the chest, abdomen, and pelvis was performed from the thoracic inlet to the proximal femora. Additionally, CT scan of the thoracic spine is performed from the lower cervical spine to the upper lumbar spine and CT scan of the lumbar spine is performed from the lower thoracic spine to the sacrum. Images for these examinations are reviewed in the axial, sagittal, and coronal planes. IV contrast was administered without complication. A dose lowering technique was utilized adhering to the principles of ALARA. CT DOSE: 2319.42 mGy.cm FINDINGS: CHEST: Thyroid: Normal in size and heterogeneous in attenuation. Thoracic aorta: There is atherosclerotic calcification of the thoracic aorta. There is ectasia of the ascending thoracic aorta which measures up to 3.9 cm in diameter. The remainder of the thoracic aorta is normal in caliber comment the arch demonstrates standard 3-vesselanatomy. No dissection is seen. Pulmonary vasculature: The pulmonary trunk is normal in caliber. There are no filling defects identified in the central pulmonary vessels to indicate pulmonary embolus. Note that this examination was not protocoled for evaluation of the pulmonary arteries. Heart: A pacemaker is noted in the left chest wall. The heart is top normal in size and without pericardial effusion. The coronary arteries are densely calcified. Lungs and pleural spaces: Emphysematous change is noted. Patchy ground glass consolidation throughout the right upper lobe is new from 11/18/2022. No pleural effusion or pneumothorax is identified. The trachea and central airways are clear. An 8 mm spiculated nodule in the right lower lobe on image #118 and a 10 mm spiculated nodule at the right apex on image #39 are unchanged. An 8 mm right middle lobe nodule on image #169 was not seen previously. Mediastinum: There is no mediastinal hematoma or lymphadenopathy. Pam: Clear. Axillae: There is no axillary lymphadenopathy. Bony thorax: The skeletal structures are osteopenic. See below for dedicated assessment of the thoracic spine. No acute/displaced rib fracture is identified. There are chronic/healed bilateral rib fractures. No lytic or blastic lesions are identified. THORACIC SPINE: There is no evidence of acute fracture or malalignment involving the thoracic spine. Question a minimal subacute superior endplate compression fracture of T7. This is best seen on sagittal image #37. There are mild chronic compression deformities of T2, T3, and T4. Vertebral body height there is otherwise maintained throughout the thoracic spine. Alignment is preserved. The transverse and spinous processes are intact. There is mild hyperkyphosis and the upper thoracic region. Small anterior osteophytes are seen throughout. There is mild multilevel degenerative disc space narrowing. There is no evidence of large disc herniation or high-grade central canal stenosis by CT. The paraspinous soft tissues are normal in appearance. ABDOMEN AND PELVIS: Liver: The contrast-enhanced liver is normal in size, contour, and attenuation. There is no intrahepatic biliary ductal dilatation. The hepatic veins and portal veins are patent. Gallbladder: Unremarkable. Spleen: Normal in size and attenuation. Pancreas: Unremarkable. Adrenal glands: Unremarkable. Kidneys: The contrast enhanced kidneys demonstrate mild cortical atrophy and are without hydronephrosis. The kidneys enhance symmetrically. A 5.2 cm cyst arises from the lower pole of the right kidney. Additional 1.3 cm cyst is seen in the right upper pole. Abdominal vasculature: There is advanced atherosclerotic calcification of the abdominal aorta. An infrarenal abdominal aortic aneurysm measures 3.6 x 3.9 cm (AP x transverse). The abdominal aorta is patent. The minimum patent luminal diameter measures up to 1.1 cm. A right axillary bifemoral bypass is patent. There is intraluminal thrombus with moderate to high-grade stenosis within the left aspect of the femorofemoral bypass. This is best seen on axial image #244. There is advanced atherosclerotic plaque and irregularity throughout the iliac arteries. 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 There is complete thrombosis of the proximal right superficial femoral artery. There is also likely complete thrombosis of the left proximal superficial femoral artery. Bowel: There is moderate colonic fecal retention. No bowel obstruction is seen. There is sigmoid diverticulosis without CT evidence of acute diverticulitis. The appendix is not visualized. Peritoneum: There is no intraperitoneal free air or abdominal ascites. Lymphadenopathy: None. Pelvic viscera: Evaluation of the pelvis is degraded by hardware in the right proximal femur. The prostate gland is enlarged and heterogeneous. The bladder wall is thickened/trabeculated indicating chronic outlet obstruction. Skeletal structures: The skeletal structures are osteopenic. See below for dedicated assessment of the lumbar spine. No lytic or blastic lesions are seen. There is posttraumatic deformity of the right proximal femur with intertrochanteric and intramedullary nails in place. There is incomplete bony fusion of the fragments. There is a chronic deformity of the sacrum. The bony pelvis and left proximal femur otherwise appear intact. Arthritic change is noted in the hips. LUMBAR SPINE: There is an acute burst-type compression fracture of T12. There is mild loss of height. There are only minimally retropulsed fragments by up to 3 mm. Fracture does not appear to involve the posterior elements. There is paravertebral edema. There is an age indeterminate but chronic-appearing superior end plate compression deformity of L4. Vertebral body height is otherwise maintained throughout the lumbar spine. Alignment is preserved. The transverse and spinous processes are intact. There is no spondylolysis. There is severe disc space narrowing at L5-S1. Only mild narrowing is seen at the remaining lumbar levels. Posterior disc ostomy complexes are seen all lumbar levels. There is likely at least mild central canal stenosis at L3-L4. The paraspinous soft tissues are within normal limits. IMPRESSION: 1. There is no acute posttraumatic intrathoracic abnormality. 2. There is no pleural effusion or pneumothorax. 3. Patchy groundglass consolidation in the right upper lobe is new from previous and likely represents pneumonia/aspiration pneumonitis. Clinical correlation will be required. 4. There is no evidence of solid organ injury in the abdomen or pelvis. 5. There is an acute burst-type compression fracture of L2. There is only minimal retropulsion of fragments. No posterior element involvement is identified and there is no significant central canal stenosis at this level. 6. Question a minimal subacute superior endplate compression fracture of T7. Correlate for point tenderness. 7. No additional acute fracture is seen involving the thoracic or lumbar spine. Chronic thoracolumbar compression deformities are discussed above. 8. Emphysema. 9. There are 2 spiculated pulmonary nodules seen in the right upper and right lower lobes which measure up to 10 mm and are unchanged from 11/18/2022. These are suspicious for neoplasms. An 8 mm irregular nodule in the right middle lobe is new from previous. Nonemergent follow-up with pulmonology is recommended, as is attention to these nodules at follow-up. 10. A right axillary bifemoral bypass is patent. 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 11. There is a 3.6 x 3.9 cm infrarenal abdominal aortic aneurysm. 12. Additional findings as above. ACT 112: Positive. There are findings on this exam that require communication between the performing entity and the patient following Patient Test Result Information Act ([place] Act 112) guidelines. Electronically signed by: Lamin Aragon M.D. 08/24/2023 7:[address] 08/24/23 16:56 CT SCAN OF THE CHEST, ABDOMEN, AND PELVIS WITH IV CONTRAST; CT SCAN OF THE THORACIC SPINE WITH IV CONTRAST; CT SCAN OF THE LUMBAR SPINE WITH IV CONTRAST CLINICAL HISTORY: Trauma. Fall. COMPARISON STUDY: Chest CT dated 11/18/2022. TECHNIQUE: Following the IV administration of 80 of Optiray 320, CT scan of the chest, abdomen, and pelvis was performed from the thoracic inlet to the proximal femora. Additionally, CT scan of the thoracic spine is performed from the lower cervical spine to the upper lumbar spine and CT scan of the lumbar spine is performed from the lower thoracic spine to the sacrum. Images for these examinations are reviewed in the axial, sagittal, and coronal planes. IV contrast was administered without complication. A dose lowering technique was utilized adhering to the principles of ALARA. CT DOSE: 2319.42 mGy.cm FINDINGS: CHEST: Thyroid: Normal in size and heterogeneous in attenuation. Thoracic aorta: There is atherosclerotic calcification of the thoracic aorta. There is ectasia of the ascending thoracic aorta which measures up to 3.9 cm in diameter. The remainder of the thoracic aorta is normal in caliber comment the arch demonstrates standard 3-vesselanatomy. No dissection is seen. Pulmonary vasculature: The pulmonary trunk is normal in caliber. There are no filling defects identified in the central pulmonary vessels to indicate pulmonary embolus. Note that this examination was not protocoled for evaluation of the pulmonary arteries. Heart: A pacemaker is noted in the left chest wall. The heart is top normal in size and without pericardial effusion. The coronary arteries are densely calcified. Lungs and pleural spaces: Emphysematous change is noted. Patchy ground glass consolidation throughout the right upper lobe is new from 11/18/2022. No pleural effusion or pneumothorax is identified. The trachea and central airways are clear. An 8 mm spiculated nodule in the right lower lobe on image #118 and a 10 mm spiculated nodule at the right apex on image #39 are unchanged. An 8 mm right middle lobe nodule on image #169 was not seen previously. Mediastinum: There is no mediastinal hematoma or lymphadenopathy. Pam: Clear. Axillae: There is no axillary lymphadenopathy. Bony thorax: The skeletal structures are osteopenic. See below for dedicated assessment of the thoracic spine. No acute/displaced rib fracture is identified. There are chronic/healed bilateral rib fractures. No lytic or blastic lesions are identified. THORACIC SPINE: There is no evidence of acute fracture or malalignment involving the thoracic spine. Question a minimal subacute superior endplate compression fracture of T7. This is best seen on sagittal image #37. There are mild chronic compression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
[2023-08-24] MEDS ORDERED: SODIUM CHLORIDE 0.9% 500 ML IV SCH (17:00)
[2023-08-24 17:39] LABS: Albumin Globulin Ratio 1.1 (0.9-2); Albumin Level 3.6 gm/dl (3.4-5.0); BUN Creatinine Ratio 27.5 (10-20); Bilirubin,Total 0.5 mg/dl (0.2-1.0); Calcium 8.9 mg/dl (8.6-10.3); Creatinine Clr Calc Pharmacy 52.3 ml/min; Est GFR (Non-African American) 87.2 ml/min; Globulin 3.4 gm/dl (2.5-4.0); Potassium 4.4 mmol/L (3.5-5.1)
[2023-08-24 17:46] LABS: Prothrombin Time 11.4 Seconds (9.0-12.0); Troponin I High Sensitivity 12.8 pg/ml (0-20)
[2023-08-24] MEDS ORDERED: OPTIRAY 320 500ml IV ONE (17:51)
--- NOTE | 2023-08-24 18:17 | CT Scan Report ---
CT SCAN OF THE CERVICAL SPINE CLINICAL HISTORY: Trauma. COMPARISON STUDY: CT of the cervical spine dated 11/18/2022. TECHNIQUE: CT scan of the cervical spine is performed from the skull base to the upper thoracic spine . Images are reviewed in the axial, sagittal, and coronal planes. IV contrast was not administered fo r this examination. A dose lowering technique was utilized adhering to the principles of ALARA. FINDINGS: Skeletal structures: The skeletal structures are osteopenic. There is no evidence of fracture or subl uxation involving the cervical spine. Vertebral body height is maintained. There is 4 mm anterolisthe sis at C3-C4. Minimal retrolisthesis is noted at C4-C5. This is unchanged from previous. There is str aightening of the cervical lordosis with reversal centered at C4. Large anterior osteophytes are seen throughout. The odontoid process and lateral masses are intact. The atlantoaxial articulation is pre served noting productive degenerative change. The spinous processes appear intact. There are mild chr onic compression deformities in the upper thoracic region. There is moderate multilevel cervical spon dylosis. Uncovertebral facet arthropathy contribute to neural foraminal stenosis at several levels. Intervertebral discs: There is severe disc space narrowing at C3-C4, C4-C5, C5-C6. Moderate narrowing is seen at C6-C7. There is multilevel endplate sclerosis. Central canal: Posterior disc osteophyte complexes are seen at all cervical levels between C3-C4 and C6-C7. This likely contributes to multilevel acquired compromise of the central canal. Soft tissues: The prevertebral and paraspinous soft tissues are within normal limits. There is advanc ed atherosclerotic calcification of the carotid bulbs. A stent is noted in the left carotid artery. Calvarium: The visualized calvarium at the skull base appears intact. Brain parenchyma: Partially visualized brain parenchyma at the skull base is within normal limits. Sinuses and mastoids: The visualized paranasal sinuses are clear. The mastoid air cells are well pneu matized. Lung apices: Emphysematous change is noted. Apical lung parenchyma is otherwise clear as imaged. IMPRESSION: 1. There is no evidence of fracture or subluxation involving the cervical spine. 2. Osteopenia and spondylotic change as above. ACT 112: Negative or not required by law. Electronically signed by: Lamin Aragon M.D. 08/24/2023 6:14 PM
--- NOTE | 2023-08-24 18:20 | CT Scan Report ---
CT SCAN OF THE BRAIN WITHOUT IV CONTRAST CLINICAL HISTORY: Trauma. Fall. COMPARISON STUDY: CT of the brain dated 11/18/2022. TECHNIQUE: Unenhanced axial CT scan of the brain is performed from the vertex to the skull base. A do se lowering technique was utilized adhering to the principles of ALARA. FINDINGS: Brain parenchyma: There is age-related involutional change noting moderate subcortical and periventri cular microangiopathic disease. There is no hemorrhage, mass effect, or evidence of acute territorial ischemia by CT criteria. Frederick-white matter differentiation is preserved. No extra-axial fluid collec tion is seen. Ventricles, sulci, cisterns: Prominent secondary to involutional change. Intracranial vasculature: There is atherosclerotic calcification of the cavernous carotid and vertebr al artery. Calvarium: The skeletal structures are osteopenic. No depressed calvarial fracture is identified. Soft tissues: A metallic foreign body is partially visualized in the left facial soft tissues. There may also be a punctate metallic foreign body in the region of the left orbit. Sinuses and mastoids: The visualized paranasal sinuses are clear. The mastoid air cells are well pneu matized. Orbits: The bony orbits are grossly intact. There are bilateral ocular lens implants. IMPRESSION: 1 There is no hemorrhage, mass effect, or evidence of acute territorial ischemia by CT criteria. 2. Suspect a punctate metallic foreign body in the region of the left orbit. Note that this is likely a contraindication to MRI. ACT 112: Negative or not required by law. Electronically signed by: Lamin Aragon M.D. 08/24/2023 6:18 PM
[2023-08-24 18:51] LABS: Basophils # (auto) 0.04 K/uL (0.00-0.20); Basophils % (auto) 0.3 %; Eosinophils # (auto) 0.53 K/uL (0.00-0.50); Eosinophils % (auto) 4.6 %; Hematocrit (blood only) 37.5 % (42.0-52.0); Hemoglobin 12.2 g/dl (14.0-18.0); Immature Granulocytes # (auto) 0.24 K/uL (0.01-0.20); Immature Granulocytes % (auto) 2.1 %; Lymphocytes # (auto) 1.58 K/uL (1.20-3.40); Lymphocytes % (auto) 13.7 %; Mean Corpuscular Hemoglobin 33.1 pg (25.0-34.0); Mean Corpuscular Hgb Conc 32.5 g/dL (32.0-36.0); Mean Corpuscular Volume 101.6 fL (80.0-100.0); Monocytes # (auto) 0.68 K/uL (0.11-0.59); Monocytes % (auto) 5.9 %; Neutrophils # (auto) 8.48 K/uL (1.40-6.50); Neutrophils % (auto) 73.4 %; Platelet Count 273 K/uL (130-400); RDW Coefficient of Variation 14.5 % (11.5-14.5); RDW Standard Deviation 55.1 fL (36.4-46.3); Red Blood Count 3.69 M/uL (4.70-6.10); White Blood Count 11.55 K/ul (4.8-10.8)
--- NOTE | 2023-08-24 19:03 | CT Scan Report ---
CT SCAN OF THE CHEST, ABDOMEN, AND PELVIS WITH IV CONTRAST; CT SCAN OF THE THORACIC SPINE WITH IV CON TRAST; CT SCAN OF THE LUMBAR SPINE WITH IV CONTRAST CLINICAL HISTORY: Trauma. Fall. COMPARISON STUDY: Chest CT dated 11/18/2022. TECHNIQUE: Following the IV administration of 80 of Optiray 320, CT scan of the chest, abdomen, and p shanika was performed from the thoracic inlet to the proximal femora. Additionally, CT scan of the thor acic spine is performed from the lower cervical spine to the upper lumbar spine and CT scan of the vaishali mbar spine is performed from the lower thoracic spine to the sacrum. Images for these examinations ar e reviewed in the axial, sagittal, and coronal planes. IV contrast was administered without complicat ion. A dose lowering technique was utilized adhering to the principles of ALARA. CT DOSE: 2319.42 mGy.cm FINDINGS: CHEST: Thyroid: Normal in size and heterogeneous in attenuation. Thoracic aorta: There is atherosclerotic calcification of the thoracic aorta. There is ectasia of the ascending thoracic aorta which measures up to 3.9 cm in diameter. The remainder of the thoracic aort a is normal in caliber comment the arch demonstrates standard 3-vesselanatomy. No dissection is seen. Pulmonary vasculature: The pulmonary trunk is normal in caliber. There are no filling defects identif ied in the central pulmonary vessels to indicate pulmonary embolus. Note that this examination was no t protocoled for evaluation of the pulmonary arteries. Heart: A pacemaker is noted in the left chest wall. The heart is top normal in size and without peric ardial effusion. The coronary arteries are densely calcified. Lungs and pleural spaces: Emphysematous change is noted. Patchy ground glass consolidation throughout the right upper lobe is new from 11/18/2022. No pleural effusion or pneumothorax is identified. The t rachea and central airways are clear. An 8 mm spiculated nodule in the right lower lobe on image #118 and a 10 mm spiculated nodule at the right apex on image #39 are unchanged. An 8 mm right middle lob e nodule on image #169 was not seen previously. Mediastinum: There is no mediastinal hematoma or lymphadenopathy. Pam: Clear. Axillae: There is no axillary lymphadenopathy. Bony thorax: The skeletal structures are osteopenic. See below for dedicated assessment of the thorac ic spine. No acute/displaced rib fracture is identified. There are chronic/healed bilateral rib fract ures. No lytic or blastic lesions are identified. THORACIC SPINE: There is no evidence of acute fracture or malalignment involving the thoracic spine. Question a minimal subacute superior endplate compression fracture of T7. This is best seen on sagitt al image #37. There are mild chronic compression deformities of T2, T3, and T4. Vertebral body height there is otherwise maintained throughout the thoracic spine. Alignment is preserved. The transverse and spinous processes are intact. There is mild hyperkyphosis and the upper thoracic region. Small an terior osteophytes are seen throughout. There is mild multilevel degenerative disc space narrowing. T here is no evidence of large disc herniation or high-grade central canal stenosis by CT. The paraspin ous soft tissues are normal in appearance. ABDOMEN AND PELVIS: Liver: The contrast-enhanced liver is normal in size, contour, and attenuation. There is no intrahepa tic biliary ductal dilatation. The hepatic veins and portal veins are patent. Gallbladder: Unremarkable. Spleen: Normal in size and attenuation. Pancreas: Unremarkable. Adrenal glands: Unremarkable. Kidneys: The contrast enhanced kidneys demonstrate mild cortical atrophy and are without hydronephros is. The kidneys enhance symmetrically. A 5.2 cm cyst arises from the lower pole of the right kidney. Additional 1.3 cm cyst is seen in the right upper pole. Abdominal vasculature: There is advanced atherosclerotic calcification of the abdominal aorta. An inf rarenal abdominal aortic aneurysm measures 3.6 x 3.9 cm (AP x transverse). The abdominal aorta is pat ent. The minimum patent luminal diameter measures up to 1.1 cm. A right axillary bifemoral bypass is patent. There is intraluminal thrombus with moderate to high-grade stenosis within the left aspect of the femorofemoral bypass. This is best seen on axial image #244. There is advanced atherosclerotic p laque and irregularity throughout the iliac arteries. There is complete thrombosis of the distal righ t external iliac artery seen on image #242. There is complete thrombosis of the proximal right superf icial femoral artery. There is also likely complete thrombosis of the left proximal superficial femor al artery. Bowel: There is moderate colonic fecal retention. No bowel obstruction is seen. There is sigmoid dive rticulosis without CT evidence of acute diverticulitis. The appendix is not visualized. Peritoneum: There is no intraperitoneal free air or abdominal ascites. Lymphadenopathy: None. Pelvic viscera: Evaluation of the pelvis is degraded by hardware in the right proximal femur. The pro state gland is enlarged and heterogeneous. The bladder wall is thickened/trabeculated indicating mechanical design technician eloy outlet obstruction. Skeletal structures: The skeletal structures are osteopenic. See below for dedicated assessment of th e lumbar spine. No lytic or blastic lesions are seen. There is posttraumatic deformity of the right p roximal femur with intertrochanteric and intramedullary nails in place. There is incomplete bony fusi on of the fragments. There is a chronic deformity of the sacrum. The bony pelvis and left proximal fe mur otherwise appear intact. Arthritic change is noted in the hips. LUMBAR SPINE: There is an acute burst-type compression fracture of T12. There is mild loss of height . There are only minimally retropulsed fragments by up to 3 mm. Fracture does not appear to involve t he posterior elements. There is paravertebral edema. There is an age indeterminate but chronic-appear ing superior end plate compression deformity of L4. Vertebral body height is otherwise maintained thr oughout the lumbar spine. Alignment is preserved. The transverse and spinous processes are intact. Th ere is no spondylolysis. There is severe disc space narrowing at L5-S1. Only mild narrowing is seen a t the remaining lumbar levels. Posterior disc ostomy complexes are seen all lumbar levels. There is l ikely at least mild central canal stenosis at L3-L4. The paraspinous soft tissues are within normal l imits. IMPRESSION: 1. There is no acute posttraumatic intrathoracic abnormality. 2. There is no pleural effusion or pneumothorax. 3. Patchy groundglass consolidation in the right upper lobe is new from previous and likely represent s pneumonia/aspiration pneumonitis. Clinical correlation will be required. 4. There is no evidence of solid organ injury in the abdomen or pelvis. 5. There is an acute burst-type compression fracture of L2. There is only minimal retropulsion of fra gments. No posterior element involvement is identified and there is no significant central canal sten osis at this level. 6. Question a minimal subacute superior endplate compression fracture of T7. Correlate for michael bello. 7. No additional acute fracture is seen involving the thoracic or lumbar spine. Chronic thoracolumbar compression deformities are discussed above. 8. Emphysema. 9. There are 2 spiculated pulmonary nodules seen in the right upper and right lower lobes which measu re up to 10 mm and are unchanged from 11/18/2022. These are suspicious for neoplasms. An 8 mm irregula r nodule in the right middle lobe is new from previous. Nonemergent follow-up with pulmonology is rec ommended, as is attention to these nodules at follow-up. 10. A right axillary bifemoral bypass is patent. Intraluminal thrombus within the distal femorofemora l bypass causes moderate to severe stenosis. 11. There is a 3.6 x 3.9 cm infrarenal abdominal aortic aneurysm. 12. Additional findings as above. ACT 112: Positive. There are findings on this exam that require communication between the performing entity and the patient following Patient Test Result Information Act ([place] Act 112) guidelines. Electronically signed by: Lamin Aragon M.D. 08/24/2023 7:00 PM
[2023-08-24] MEDS ORDERED: oxyCODONE HCL IR 5 MG TAB (IMMEDIATE RELEASE) PO STA (21:03)
[2023-08-24] MEDS ORDERED: MoRPHine SULFATE 2 MG/ML CARP IV STA (21:26)
[2023-08-24] MEDS ORDERED: ALBUTEROL 0.083% NEBU SOLN 3 ML VIAL NEB STA (21:26)
[2023-08-24] MEDS ORDERED: NITROGLYCERIN SL 0.4 MG/TAB TAB ONE (21:46)
[2023-08-24] MEDS ORDERED: SODIUM CHLORIDE 0.9% 250 ML IV ONE (22:01)
[2023-08-24] MEDS ORDERED: NITROGLYCERIN SL 0.4 MG/TAB TAB SL STA (22:07)
--- NOTE | 2023-08-24 22:29 | History & Physical Report ---
Date of Service August 24, 2023 Assessment & Plan (1) Fall: Plan: 82 yo male with PMHx of COPD (2L O2 qhs), CAD s/p PCI (2010), pulmonary nodules, AAA, PAD s/p bypass, afib s/p ICD with pacer, convulsions, muscle spasms, CHF, GERD, BPH, HTN, HLD presents with fall. #Fall -presented with fall out of truck. Unclear if true syncopal event. However, given negative trops x2 and clinical appearance, will defer further workup to day team. Neurovascularly intact. Vitals stable. Orthostatics ordered. -Head CT neg -CT chest without acute posttraumatic intrathoracic abnormality -Spinal imaging with an L2 compression fx with retropulsed fragments up to 3mm and a questionable T7 compression fx. However, L2 compression fx was seen on XR (08/21) which was prior to this event so likely unrelated. -he does have associated chest pain and sob as below; attribute these to fracture pain for now as chest pain is reproducible on exam -pain control: tylenol scheduled, IV Dilaudid prn -PT/OT -consider ortho spine consult #Chest pain -reproducible, likely MSK in setting of traumatic fall and spinal fx -trops x2 neg -EKG without ST changes #Consolidation on CXR -CT chest: patchy ground glass consolidation in the right upper lobe is new. No leukocytosis. Neg procal. Likely pneumonitis. Defer abx. Will recheck procal in am. #Pulmonary nodule -There are 2 spiculated pulmonary nodules seen in the right upper and right lower lobes which measure up to 10 mm and are unchanged from 11/18/2022. These are suspicious for neoplasms. An 8 mm irregular nodule in the right middle lobe is new from previous. Nonemergent follow-up with pulmonology is recommended, as is attention to these nodules at follow-up. #AAA, chronic -3.6 x 3.9 cm infrarenal abdominal aortic aneurysm seen on imaging #CHF #CAD s/p PCI #PAD s/p bypass -cont. asa, metoprolol, lasix #COPD -chronically on 2L O2 qhs -cont. symbicort -duoneb prn #HTN -cont. metoprolol -he did have a drop in systolic BP following nitro administration in the ED, however, this improved with IVF. Now stable, wnl. #HLD -cont. statin #H/o convulsions #Muscle spasms -cont. carbamazepine, methocarbamol #GERD -cont. pepcid, protonix #BPH -cont. finasteride, tamsulosin #Constipation -cont. miralax DVT ppx: heparin SQ FEN/GI: HH Code Status: full Dispo: med tele History of Present Illness Chief Complaint: fall Primary Care Provider: James Madsen PA-C 82 yo male with PMHx of COPD (2L O2 qhs), CAD s/p PCI (2010), pulmonary nodules, AAA, PAD s/p bypass, afib s/p ICD with pacer, convulsions, muscle spasms, CHF, GERD, BPH, HTN, HLD presents with fall. Ambulates with a cane. Yesterday afternoon patient was sitting in the passenger seat of his truck waiting for assistance to get out of the vehicle and the next thing he knows is that he is on the ground beside the vehicle. He is unsure what caused him to fall but states he may have passed out. He thinks he might of hit his head but denies loss of consciousness. Prior to this event he was completely asymptomatic. However after the fall and in the emergency room he did have significant chest pain, epigastric pain, back pain, nausea, and shortness of breath. He did recently have a right lower extremity arterial bypass 1 month ago. Allergies Allergy/AdvReac Type Severity Reaction Status Date / Time tiotropium Allergy Severe "CAN'T Verified 08/24/23 18:15 CATCH MY BREATH". Home Medications Medication Instructions Recorded Confirmed Type albuterol sulfate 90 mcg/actuation 2 puff inhalation Q4H PRN 11/17/22 08/24/23 History aerosol inhaler Shortness Of Breath aspirin 81 mg tablet,delayed 81 mg PO DAILY 11/17/22 08/24/23 History release budesonide-formoterol HFA 160 2 inh inhalation BID 11/17/22 08/24/23 History mcg-4.5 mcg/actuation aerosol inhaler (Symbicort) carbamazepine 200 mg tablet 200 mg PO TID 11/17/22 08/24/23 History cholecalciferol (vitamin D3) 25 50 mcg PO DAILY 11/17/22 08/24/23 History mcg (1,000 unit) tablet famotidine 20 mg tablet 20 mg PO DAILYBB 11/17/22 08/24/23 History finasteride 5 mg tablet 5 mg PO DAILY 11/17/22 08/24/23 History fluticasone propionate 50 2 spray intranasal DAILY 11/17/22 08/24/23 History mcg/actuation nasal spray,suspension folic acid 1 mg tablet 1 mg PO DAILY 11/17/22 08/24/23 History furosemide 20 mg tablet 20 mg PO DAILY 11/17/22 08/24/23 History metoprolol succinate 25 mg 12.5 mg PO DAILY 11/17/22 08/24/23 History tablet,extended release 24 hr pantoprazole 40 mg tablet,delayed 40 mg PO BID 11/17/22 08/24/23 History release potassium chloride 10 mEq 10 meq PO DAILY 11/17/22 08/24/23 History tablet,extended release(part/cryst) (Klor-Con M) simvastatin 20 mg tablet 40 mg PO QPM 11/17/22 08/24/23 History tamsulosin 0.4 mg capsule 0.8 mg PO QAM 11/17/22 08/24/23 History tizanidine 4 mg tablet 4 mg PO Q8H PRN MUSCLE SPASMS 11/17/22 08/24/23 History polyethylene glycol 3350 17 gram 17 g PO DAILY #30 ea 11/22/22 08/24/23 Rx oral powder packet (Miralax) sennosides 8.6 mg-docusate sodium 2 tab PO HS #20 tabs 11/22/22 08/24/23 Rx 50 mg tablet (Senokot-S) acetaminophen 500 mg tablet 1,000 mg PO Q8 PRN Fever Or Pain 08/24/23 08/24/23 History (Tylenol Extra Strength) lorazepam 0.5 mg tablet 0.5 mg PO Q12 PRN Anxiety 08/24/23 08/24/23 History methocarbamol 750 mg tablet 750 mg PO TID 08/24/23 08/24/23 History oxycodone 10 mg tablet 10 mg PO Q6 PRN Pain 08/24/23 08/24/23 History vit no.95-ferrous 1 tab PO QAM 08/24/23 08/24/23 History fumarate 28 mg-folic acid 800 mcg tablet () Past Med/Surg History Medical History Peripheral arterial disease status post right femoral-popliteal Viabahn for stenting Pulmonary nodules AAA (abdominal aortic aneurysm) Chronic systolic heart failure Paroxysmal atrial fibrillation Rib fracture 07/2022: "Mildly displaced right lateral 10th rib fracture" History of convulsions 2002 per [facility] records Neck pain History of ME (myocardial infarction) BPH (benign prostatic hyperplasia) ICD (implantable cardioverter-defibrillator) in place Hyperlipidemia Hypertension GERD (gastroesophageal reflux disease) Status post laparotomy with repair Perforated gastric ulcer CAD (coronary artery disease) Post PCI to the circumflex in 2001 COPD (chronic obstructive pulmonary disease) Surgical History History of hip surgery 11/19/22 (ADIN): R intertrochanteric fx tx'd with cephalomedullary nail History of implantable cardioverter-defibrillator (ICD) placement History of laparotomy Family History Other Family history non-contributory Social History Smoking Status: Former smoker Tobacco Type: Cigars Cigarettes Per Day: 3-4; Hx Alcohol Use: No Hx Substance Use: No Preferred Language: [place] Communication Ability: Effective Bead Picker Required: No Beliefs That Will Affect Care: None Current Living Situation: Significant Other Feels Safe at Home: Yes Assistive Devices: Denture - Upper, Glasses and Walker Review of Systems Review of Systems: All systems reviewed & are unremarkable except as noted in HPI & below Physical Exam Physical Exam: Constitutional:frail, in no acute distress, pleasant and normal affect, intact memory. AOx3. Vitals as above. HEENT: No scleral injection or discharge.Moist mucous membranes. Neck: Supple without lymphadenopathy. Trachea midline. Lungs: Clear to auscultation bilaterally with good effort. No wheezes/rales/rhonchi. Cardiac: Regular rate and rhythm.No murmurs.No lower extremity edema. 2+ distal peripheral pulses. Abdomen: Bowel sounds present. Soft, nontender, and nondistended.No guarding. No hepatosplenomegaly. MSK: No cyanosis or clubbing. +reproducible R chest wall pain. +paraspinal tenderness thoracic/lumbar region. Without midline spine tenderness. No spinal step off. Skin: No abnormal rashes, warm, dry. Neurologic: no focal deficits other than some difficulty lifting his L lower extremity however this may be chronic. Normal sensation bilaterally. EOMI. PERRL. Results & Data Results & Data Vital Signs (Past 12 Hours) Vital Signs Temp Pulse Resp BP Pulse Ox O2 Del Method O2 Flow Rate 08/24/23 22:00 84 26 H 96/65 L 95 Nasal Cannula 2 08/24/23 21:58 96/62 L 08/24/23 21:55 87 31 H 76/49 L 95 Nasal Cannula 2 08/24/23 21:54 51 L 33 H 68/44 L 08/24/23 21:45 81 34 H 173/91 H 100 Nasal Cannula 2 08/24/23 21:44 80 33 H 186/102 H 100 Nasal Cannula 2 08/24/23 21:14 82 33 H 183/98 H 08/24/23 21:00 71 29 H 160/89 H 08/24/23 20:53 71 08/24/23 20:45 71 29 H 162/80 H 08/24/23 20:30 70 28 H 155/90 H 08/24/23 20:15 69 27 H 150/82 H 100 Nasal Cannula 2 08/24/23 20:00 76 22 134/75 08/24/23 19:45 68 22 125/74 99 Nasal Cannula 2 08/24/23 19:30 71 19 117/65 98 Nasal Cannula 2 08/24/23 19:15 66 24 115/66 08/24/23 19:00 66 20 108/65 99 Nasal Cannula 2 08/24/23 18:45 68 23 103/56 L 99 Nasal Cannula 2 08/24/23 18:30 66 23 106/57 L 100 Nasal Cannula 2 08/24/23 18:15 68 24 102/57 L 99 Nasal Cannula 2 08/24/23 18:04 71 22 92/62 L 93 Nasal Cannula 2 08/24/23 17:45 71 24 94/56 L 08/24/23 17:38 81 08/24/23 17:30 74 19 88/51 L 98 Nasal Cannula 2 08/24/23 17:15 72 22 94/60 L 93 Nasal Cannula 2 08/24/23 17:00 79 26 H 63/45 L 88 L Room Air 08/24/23 16:51 36.4 C L 74 24 70/47 L 93 Room Air Laboratory Results Laboratory Results WBC 11.55 K/ul (4.8-10.8) H 08/24/23 16:50 RBC 3.69 M/uL (4.70-6.10) L 08/24/23 16:50 Hgb 12.2 g/dl (14.0-18.0) L 08/24/23 16:50 Hct 37.5 % (42.0-52.0) L 08/24/23 16:50 MCV 101.6 fL (80.0-100.0) H 08/24/23 16:50 MCH 33.1 pg (25.0-34.0) 08/24/23 16:50 MCHC 32.5 g/dL (32.0-36.0) 08/24/23 16:50 RDW Std Deviation 55.1 fL (36.4-46.3) H 08/24/23 16:50 RDW Coeff of Risa 14.5 % (11.5-14.5) 08/24/23 16:50 Plt Count 273 K/uL (130-400) 08/24/23 16:50 MPV 11.0 fL (9.4-12.4) 08/24/23 16:50 Immature Gran % (Auto) 2.1 % 08/24/23 16:50 Neut % (Auto) 73.4 % 08/24/23 16:50 Lymph % (Auto) 13.7 % 08/24/23 16:50 Hawkins % (Auto) 5.9 % 08/24/23 16:50 Eos % (Auto) 4.6 % 08/24/23 16:50 Baso % (Auto) 0.3 % 08/24/23 16:50 Neut # (Auto) 8.48 K/uL (1.40-6.50) H 08/24/23 16:50 Lymph # (Auto) 1.58 K/uL (1.20-3.40) 08/24/23 16:50 Hawkins # (Auto) 0.68 K/uL (0.11-0.59) H 08/24/23 16:50 Eos # (Auto) 0.53 K/uL (0.00-0.50) H 08/24/23 16:50 Baso # (Auto) 0.04 K/uL (0.00-0.20) 08/24/23 16:50 Immature Gran # (Auto) 0.24 K/uL (0.01-0.20) H 08/24/23 16:50 PT 11.4 Seconds (9.0-12.0) 08/24/23 16:50 INR 1.0 (0.9-1.1) 08/24/23 16:50 Sodium 137 mmol/L (136-145) 08/24/23 16:50 Potassium 4.4 mmol/L (3.5-5.1) 08/24/23 16:50 Chloride 99 mmol/L (98-107) 08/24/23 16:50 Carbon Dioxide 28 mmol/L (21-32) 08/24/23 16:50 Anion Gap 10 (3-11) 08/24/23 16:50 BUN 19 mg/dl (6-23) 08/24/23 16:50 Creatinine 0.69 mg/dl (0.6-1.4) 08/24/23 16:50 Est Cr Clr Drug Dosing 52.3 ml/min 08/24/23 16:50 Est GFR ( Amer) 101.0 ml/min 08/24/23 16:50 Est GFR (Non-Af Amer) 87.2 ml/min 08/24/23 16:50 BUN/Creatinine Ratio 27.5 (10-20) H 08/24/23 16:50 Glucose 127 mg/dl (70-99(Fasting)) H 08/24/23 16:50 Calcium 8.9 mg/dl (8.6-10.3) 08/24/23 16:50 Total Bilirubin 0.5 mg/dl (0.2-1.0) 08/24/23 16:50 AST 43 U/L (13-39) H 08/24/23 16:50 ALT 50 U/L (7-52) 08/24/23 16:50 Alkaline Phosphatase 231 U/L (34-104) H 08/24/23 16:50 Total Creatine Kinase 98 U/L (30-223) 08/24/23 16:50 Troponin I High Sens 12.8 pg/ml (0-20) 08/24/23 16:50 Total Protein 7.0 gm/dl (6.0-8.3) 08/24/23 16:50 Albumin 3.6 gm/dl (3.4-5.0) 08/24/23 16:50 Globulin 3.4 gm/dl (2.5-4.0) 08/24/23 16:50 Albumin/Globulin Ratio 1.1 (0.9-2) 08/24/23 16:50 Impressions Abdomen/Pelvis CT 08/24/23 16:56 CT SCAN OF THE CHEST, ABDOMEN, AND PELVIS WITH IV CONTRAST; CT SCAN OF THE THORACIC SPINE WITH IV CONTRAST; CT SCAN OF THE LUMBAR SPINE WITH IV CONTRAST CLINICAL HISTORY: Trauma. Fall. COMPARISON STUDY: Chest CT dated 11/18/2022. TECHNIQUE: Following the IV administration of 80 of Optiray 320, CT scan of the chest, abdomen, and pelvis was performed from the thoracic inlet to the proximal femora. Additionally, CT scan of the thoracic spine is performed from the lower cervical spine to the upper lumbar spine and CT scan of the lumbar spine is performed from the lower thoracic spine to the sacrum. Images for these examinations are reviewed in the axial, sagittal, and coronal planes. IV contrast was administered without complication. A dose lowering technique was utilized adhering to the principles of ALARA. CT DOSE: 2319.42 mGy.cm FINDINGS: CHEST: Thyroid: Normal in size and heterogeneous in attenuation. Thoracic aorta: There is atherosclerotic calcification of the thoracic aorta. There is ectasia of the ascending thoracic aorta which measures up to 3.9 cm in diameter. The remainder of the thoracic aorta is normal in caliber comment the arch demonstrates standard 3-vesselanatomy. No dissection is seen. Pulmonary vasculature: The pulmonary trunk is normal in caliber. There are no filling defects identified in the central pulmonary vessels to indicate pulmonary embolus. Note that this examination was not protocoled for evaluation of the pulmonary arteries. Heart: A pacemaker is noted in the left chest wall. The heart is top normal in size and without pericardial effusion. The coronary arteries are densely calcified. Lungs and pleural spaces: Emphysematous change is noted. Patchy ground glass consolidation throughout the right upper lobe is new from 11/18/2022. No pleural effusion or pneumothorax is identified. The trachea and central airways are clear. An 8 mm spiculated nodule in the right lower lobe on image #118 and a 10 mm spiculated nodule at the right apex on image #39 are unchanged. An 8 mm right middle lobe nodule on image #169 was not seen previously. Mediastinum: There is no mediastinal hematoma or lymphadenopathy. Pam: Clear. Axillae: There is no axillary lymphadenopathy. Bony thorax: The skeletal structures are osteopenic. See below for dedicated assessment of the thoracic spine. No acute/displaced rib fracture is identified. There are chronic/healed bilateral rib fractures. No lytic or blastic lesions are identified. THORACIC SPINE: There is no evidence of acute fracture or malalignment involving the thoracic spine. Question a minimal subacute superior endplate compression fracture of T7. This is best seen on sagittal image #37. There are mild chronic compression deformities of T2, T3, and T4. Vertebral body height there is otherwise maintained throughout the thoracic spine. Alignment is preserved. The transverse and spinous processes are intact. There is mild hyperkyphosis and the upper thoracic region. Small anterior osteophytes are seen throughout. There is mild multilevel degenerative disc space narrowing. There is no evidence of large disc herniation or high-grade central canal stenosis by CT. The paraspinous soft tissues are normal in appearance. ABDOMEN AND PELVIS: Liver: The contrast-enhanced liver is normal in size, contour, and attenuation. There is no intrahepatic biliary ductal dilatation. The hepatic veins and portal veins are patent. Gallbladder: Unremarkable. Spleen: Normal in size and attenuation. Pancreas: Unremarkable. Adrenal glands: Unremarkable. Kidneys: The contrast enhanced kidneys demonstrate mild cortical atrophy and are without hydronephrosis. The kidneys enhance symmetrically. A 5.2 cm cyst arises from the lower pole of the right kidney. Additional 1.3 cm cyst is seen in the right upper pole. Abdominal vasculature: There is advanced atherosclerotic calcification of the abdominal aorta. An infrarenal abdominal aortic aneurysm measures 3.6 x 3.9 cm (AP x transverse). The abdominal aorta is patent. The minimum patent luminal diameter measures up to 1.1 cm. A right axillary bifemoral bypass is patent. There is intraluminal thrombus with moderate to high-grade stenosis within the left aspect of the femorofemoral bypass. This is best seen on axial image #244. There is advanced atherosclerotic plaque and irregularity throughout the iliac arteries. 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 There is complete thrombosis of the proximal right superficial femoral artery. There is also likely complete thrombosis of the left proximal superficial femoral artery. Bowel: There is moderate colonic fecal retention. No bowel obstruction is seen. There is sigmoid diverticulosis without CT evidence of acute diverticulitis. The appendix is not visualized. Peritoneum: There is no intraperitoneal free air or abdominal ascites. Lymphadenopathy: None. Pelvic viscera: Evaluation of the pelvis is degraded by hardware in the right proximal femur. The prostate gland is enlarged and heterogeneous. The bladder wall is thickened/trabeculated indicating chronic outlet obstruction. Skeletal structures: The skeletal structures are osteopenic. See below for dedicated assessment of the lumbar spine. No lytic or blastic lesions are seen. There is posttraumatic deformity of the right proximal femur with intertrochanteric and intramedullary nails in place. There is incomplete bony fusion of the fragments. There is a chronic deformity of the sacrum. The bony pelvis and left proximal femur otherwise appear intact. Arthritic change is noted in the hips. LUMBAR SPINE: There is an acute burst-type compression fracture of T12. There is mild loss of height. There are only minimally retropulsed fragments by up to 3 mm. Fracture does not appear to involve the posterior elements. There is paravertebral edema. There is an age indeterminate but chronic-appearing superior end plate compression deformity of L4. Vertebral body height is otherwise maintained throughout the lumbar spine. Alignment is preserved. The transverse and spinous processes are intact. There is no spondylolysis. There is severe disc space narrowing at L5-S1. Only mild narrowing is seen at the remaining lumbar levels. Posterior disc ostomy complexes are seen all lumbar levels. There is likely at least mild central canal stenosis at L3-L4. The paraspinous soft tissues are within normal limits. IMPRESSION: 1. There is no acute posttraumatic intrathoracic abnormality. 2. There is no pleural effusion or pneumothorax. 3. Patchy groundglass consolidation in the right upper lobe is new from previous and likely represents pneumonia/aspiration pneumonitis. Clinical correlation will be required. 4. There is no evidence of solid organ injury in the abdomen or pelvis. 5. There is an acute burst-type compression fracture of L2. There is only minimal retropulsion of fragments. No posterior element involvement is identified and there is no significant central canal stenosis at this level. 6. Question a minimal subacute superior endplate compression fracture of T7. Correlate for point tenderness. 7. No additional acute fracture is seen involving the thoracic or lumbar spine. Chronic thoracolumbar compression deformities are discussed above. 8. Emphysema. 9. There are 2 spiculated pulmonary nodules seen in the right upper and right lower lobes which measure up to 10 mm and are unchanged from 11/18/2022. These are suspicious for neoplasms. An 8 mm irregular nodule in the right middle lobe is new from previous. Nonemergent follow-up with pulmonology is recommended, as is attention to these nodules at follow-up. 10. A right axillary bifemoral bypass is patent. 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 11. There is a 3.6 x 3.9 cm infrarenal abdominal aortic aneurysm. 12. Additional findings as above. ACT 112: Positive. There are findings on this exam that require communication between the performing entity and the patient following Patient Test Result Information Act ([place] Act 112) guidelines. Electronically signed by: Lamin Aragon M.D. 08/24/2023 7:[address] 08/24/23 16:56 CT SCAN OF THE CERVICAL SPINE CLINICAL HISTORY: Trauma. COMPARISON STUDY: CT of the cervical spine dated 11/18/2022. TECHNIQUE: CT scan of the cervical spine is performed from the skull base to the upper thoracic spine. Images are reviewed in the axial, sagittal, and coronal planes. IV contrast was not administered for this examination. A dose lowering technique was utilized adhering to the principles of ALARA. FINDINGS: Skeletal structures: The skeletal structures are osteopenic. There is no evidence of fracture or subluxation involving the cervical spine. Vertebral body height is maintained. There is 4 mm anterolisthesis at C3-C4. Minimal retrolisthesis is noted at C4-C5. This is unchanged from previous. There is straightening of the cervical lordosis with reversal centered at C4. Large anterior osteophytes are seen throughout. The odontoid process and lateral masses are intact. The atlantoaxial articulation is preserved noting productive degenerative change. The spinous processes appear intact. There are mild chronic compression deformities in the upper thoracic region. There is moderate multilevel cervical spondylosis. Uncovertebral facet arthropathy contribute to neural foraminal stenosis at several levels. Intervertebral discs: There is severe disc space narrowing at C3-C4, C4-C5, C5- C6. Moderate narrowing is seen at C6-C7. There is multilevel endplate sclerosis. Central canal: Posterior disc osteophyte complexes are seen at all cervical levels between C3-C4 and C6-C7. This likely contributes to multilevel acquired compromise of the central canal. Soft tissues: The prevertebral and paraspinous soft tissues are within normal limits. There is advanced atherosclerotic calcification of the carotid bulbs. A stent is noted in the left carotid artery. Calvarium: The visualized calvarium at the skull base appears intact. Brain parenchyma: Partially visualized brain parenchyma at the skull base is within normal limits. Sinuses and mastoids: The visualized paranasal sinuses are clear. The mastoid ai r cells are well pneumatized. Lung apices: Emphysematous change is noted. Apical lung parenchyma is otherwise clear as imaged. IMPRESSION: 1. There is no evidence of fracture or subluxation involving the cervical spine. 2. Osteopenia and spondylotic change as above. ACT 112: Negative or not required by law. Electronically signed by: Lamin Aragon M.D. 08/24/2023 6:[address] 08/24/23 16:56 CT SCAN OF THE CHEST, ABDOMEN, AND PELVIS WITH IV CONTRAST; CT SCAN OF THE THORACIC SPINE WITH IV CONTRAST; CT SCAN OF THE LUMBAR SPINE WITH IV CONTRAST CLINICAL HISTORY: Trauma. Fall. COMPARISON STUDY: Chest CT dated 11/18/2022. TECHNIQUE: Following the IV administration of 80 of Optiray 320, CT scan of the chest, abdomen, and pelvis was performed from the thoracic inlet to the proximal femora. Additionally, CT scan of the thoracic spine is performed from the lower cervical spine to the upper lumbar spine and CT scan of the lumbar spine is performed from the lower thoracic spine to the sacrum. Images for these examinations are reviewed in the axial, sagittal, and coronal planes. IV contrast was administered without complication. A dose lowering technique was utilized adhering to the principles of ALARA. CT DOSE: 2319.42 mGy.cm FINDINGS: CHEST: Thyroid: Normal in size and heterogeneous in attenuation. Thoracic aorta: There is atherosclerotic calcification of the thoracic aorta. There is ectasia of the ascending thoracic aorta which measures up to 3.9 cm in diameter. The remainder of the thoracic aorta is normal in caliber comment the arch demonstrates standard 3-vesselanatomy. No dissection is seen. Pulmonary vasculature: The pulmonary trunk is normal in caliber. There are no filling defects identified in the central pulmonary vessels to indicate pulmonary embolus. Note that this examination was not protocoled for evaluation of the pulmonary arteries. Heart: A pacemaker is noted in the left chest wall. The heart is top normal in size and without pericardial effusion. The coronary arteries are densely calcified. Lungs and pleural spaces: Emphysematous change is noted. Patchy ground glass consolidation throughout the right upper lobe is new from 11/18/2022. No pleural effusion or pneumothorax is identified. The trachea and central airways are clear. An 8 mm spiculated nodule in the right lower lobe on image #118 and a 10 mm spiculated nodule at the right apex on image #39 are unchanged. An 8 mm right middle lobe nodule on image #169 was not seen previously. Mediastinum: There is no mediastinal hematoma or lymphadenopathy. Pam: Clear. Axillae: There is no axillary lymphadenopathy. Bony thorax: The skeletal structures are osteopenic. See below for dedicated assessment of the thoracic spine. No acute/displaced rib fracture is identified. There are chronic/healed bilateral rib fractures. No lytic or blastic lesions are identified. THORACIC SPINE: There is no evidence of acute fracture or malalignment involving the thoracic spine. Question a minimal subacute superior endplate compression fracture of T7. This is best seen on sagittal image #37. There are mild chronic compression deformities of T2, T3, and T4. Vertebral body height there is otherwise maintained throughout the thoracic spine. Alignment is preserved. The transverse and spinous processes are intact. There is mild hyperkyphosis and the upper thoracic region. Small anterior osteophytes are seen throughout. There is mild multilevel degenerative disc space narrowing. There is no evidence of large disc herniation or high-grade central canal stenosis by CT. The paraspinous soft tissues are normal in appearance. ABDOMEN AND PELVIS: Liver: The contrast-enhanced liver is normal in size, contour, and attenuation. There is no intrahepatic biliary ductal dilatation. The hepatic veins and portal veins are patent. Gallbladder: Unremarkable. Spleen: Normal in size and attenuation. Pancreas: Unremarkable. Adrenal glands: Unremarkable. Kidneys: The contrast enhanced kidneys demonstrate mild cortical atrophy and are without hydronephrosis. The kidneys enhance symmetrically. A 5.2 cm cyst arises from the lower pole of the right kidney. Additional 1.3 cm cyst is seen in the right upper pole. Abdominal vasculature: There is advanced atherosclerotic calcification of the abdominal aorta. An infrarenal abdominal aortic aneurysm measures 3.6 x 3.9 cm (AP x transverse). The abdominal aorta is patent. The minimum patent luminal diameter measures up to 1.1 cm. A right axillary bifemoral bypass is patent. There is intraluminal thrombus with moderate to high-grade stenosis within the left aspect of the femorofemoral bypass. This is best seen on axial image #244. There is advanced atherosclerotic plaque and irregularity throughout the iliac arteries. 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 There is complete thrombosis of the proximal right s uperficial femoral artery. There is also likely complete thrombosis of the left proximal superficial femoral artery. Bowel: There is moderate colonic fecal retention. No bowel obstruction is seen. There is sigmoid diverticulosis without CT evidence of acute diverticulitis. The appendix is not visualized. Peritoneum: There is no intraperitoneal free air or abdominal ascites. Lymphadenopathy: None. Pelvic viscera: Evaluation of the pelvis is degraded by hardware in the right proximal femur. The prostate gland is enlarged and heterogeneous. The bladder wall is thickened/trabeculated indicating chronic outlet obstruction. Skeletal structures: The skeletal structures are osteopenic. See below for dedicated assessment of the lumbar spine. No lytic or blastic lesions are seen. There is posttraumatic deformity of the right proximal femur with intertrochanteric and intramedullary nails in place. There is incomplete bony fusion of the fragments. There is a chronic deformity of the sacrum. The bony pelvis and left proximal femur otherwise appear intact. Arthritic change is noted in the hips. LUMBAR SPINE: There is an acute burst-type compression fracture of T12. There is mild loss of height. There are only minimally retropulsed fragments by up to 3 mm. Fracture does not appear to involve the posterior elements. There is paravertebral edema. There is an age indeterminate but chronic-appearing superior end plate compression deformity of L4. Vertebral body height is otherwise maintained throughout the lumbar spine. Alignment is preserved. The transverse and spinous processes are intact. There is no spondylolysis. There is severe disc space narrowing at L5-S1. Only mild narrowing is seen at the remaining lumbar levels. Posterior disc ostomy complexes are seen all lumbar levels. There is likely at least mild central canal stenosis at L3-L4. The paraspinous soft tissues are within normal limits. IMPRESSION: 1. There is no acute posttraumatic intrathoracic abnormality. 2. There is no pleural effusion or pneumothorax. 3. Patchy groundglass consolidation in the right upper lobe is new from previous and likely represents pneumonia/aspiration pneumonitis. Clinical correlation will be required. 4. There is no evidence of solid organ injury in the abdomen or pelvis. 5. There is an acute burst-type compression fracture of L2. There is only minimal retropulsion of fragments. No posterior element involvement is identified and there is no significant central canal stenosis at this level. 6. Question a minimal subacute superior endplate compression fracture of T7. Correlate for point tenderness. 7. No additional acute fracture is seen involving the thoracic or lumbar spine. Chronic thoracolumbar compression deformities are discussed above. 8. Emphysema. 9. There are 2 spiculated pulmonary nodules seen in the right upper and right lower lobes which measure up to 10 mm and are unchanged from 11/18/2022. These are suspicious for neoplasms. An 8 mm irregular nodule in the right middle lobe is new from previous. Nonemergent follow-up with pulmonology is recommended, as is attention to these nodules at follow-up. 10. A right axillary bifemoral bypass is patent. 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 11. There is a 3.6 x 3.9 cm infrarenal abdominal aortic aneurysm. 12. Additional findings as above. ACT 112: Positive. There are findings on this exam that require communication between the performing entity and the patient following Patient Test Result Information Act ([place] Act 112) guidelines. Electronically signed by: Lamin Aragon M.D. 08/24/2023 7:[address] 08/24/23 16:56 CT SCAN OF THE BRAIN WITHOUT IV CONTRAST CLINICAL HISTORY: Trauma. Fall. COMPARISON STUDY: CT of the brain dated 11/18/2022. TECHNIQUE: Unenhanced axial CT scan of the brain is performed from the vertex to the skull base. A dose lowering technique was utilized adhering to the principles of ALARA. FINDINGS: Brain parenchyma: There is age-related involutional change noting moderate subcortical and periventricular microangiopathic disease. There is no hemorrhage, mass effect, or evidence of acute territorial ischemia by CT criteria. Frederick-white matter differentiation is preserved. No extra-axial fluid collection is seen. Ventricles, sulci, cisterns: Prominent secondary to involutional change. Intracranial vasculature: There is atherosclerotic calcification of the cavernous carotid and vertebral artery. Calvarium: The skeletal structures are osteopenic. No depressed calvarial fracture is identified. Soft tissues: A metallic foreign body is partially visualized in the left facial soft tissues. There may also be a punctate metallic foreign body in the region of the left orbit. Sinuses and mastoids: The visualized paranasal sinuses are clear. The mastoid air cells are well pneumatized. Orbits: The bony orbits are grossly intact. There are bilateral ocular lens implants. IMPRESSION: 1 There is no hemorrhage, mass effect, or evidence of acute territorial ischemia by CT criteria. 2. Suspect a punctate metallic foreign body in the region of the left orbit. Note that this is likely a contraindication to MRI. ACT 112: Negative or not required by law. Electronically signed by: Lamin Aragon M.D. 08/24/2023 6:[address] 08/24/23 16:56 CT SCAN OF THE CHEST, ABDOMEN, AND PELVIS WITH IV CONTRAST; CT SCAN OF THE THORACIC SPINE WITH IV CONTRAST; CT SCAN OF THE LUMBAR SPINE WITH IV CONTRAST CLINICAL HISTORY: Trauma. Fall. COMPARISON STUDY: Chest CT dated 11/18/2022. TECHNIQUE: Following the IV administration of 80 of Optiray 320, CT scan of the chest, abdomen, and pelvis was performed from the thoracic inlet to the proximal femora. Additionally, CT scan of the thoracic spine is performed from the lower cervical spine to the upper lumbar spine and CT scan of the lumbar spine is performed from the lower thoracic spine to the sacrum. Images for these examinations are reviewed in the axial, sagittal, and coronal planes. IV contrast was administered without complication. A dose lowering technique was utilized adhering to the principles of ALARA. CT DOSE: 2319.42 mGy.cm FINDINGS: CHEST: Thyroid: Normal in size and heterogeneous in attenuation. Thoracic aorta: There is atherosclerotic calcification of the thoracic aorta. There is ectasia of the ascending thoracic aorta which measures up to 3.9 cm in diameter. The remainder of the thoracic aorta is normal in caliber comment the arch demonstrates standard 3-vesselanatomy. No dissection is seen. Pulmonary vasculature: The pulmonary trunk is normal in caliber. There are no fi lling defects identified in the central pulmonary vessels to indicate pulmonary embolus. Note that this examination was not protocoled for evaluation of the pulmonary arteries. Heart: A pacemaker is noted in the left chest wall. The heart is top normal in size and without pericardial effusion. The coronary arteries are densely calcified. Lungs and pleural spaces: Emphysematous change is noted. Patchy ground glass consolidation throughout the right upper lobe is new from 11/18/2022. No pleural effusion or pneumothorax is identified. The trachea and central airways are clear. An 8 mm spiculated nodule in the right lower lobe on image #118 and a 10 mm spiculated nodule at the right apex on image #39 are unchanged. An 8 mm right middle lobe nodule on image #169 was not seen previously. Mediastinum: There is no mediastinal hematoma or lymphadenopathy. Pam: Clear. Axillae: There is no axillary lymphadenopathy. Bony thorax: The skeletal structures are osteopenic. See below for dedicated assessment of the thoracic spine. No acute/displaced rib fracture is identified. There are chronic/healed bilateral rib fractures. No lytic or blastic lesions are identified. THORACIC SPINE: There is no evidence of acute fracture or malalignment involving the thoracic spine. Question a minimal subacute superior endplate compression fracture of T7. This is best seen on sagittal image #37. There are mild chronic compression deformities of T2, T3, and T4. Vertebral body height there is otherwise maintained throughout the thoracic spine. Alignment is preserved. The transverse and spinous processes are intact. There is mild hyperkyphosis and the upper thoracic region. Small anterior osteophytes are seen throughout. There is mild multilevel degenerative disc space narrowing. There is no evidence of large disc herniation or high-grade central canal stenosis by CT. The paraspinous soft tissues are normal in appearance. ABDOMEN AND PELVIS: Liver: The contrast-enhanced liver is normal in size, contour, and attenuation. There is no intrahepatic biliary ductal dilatation. The hepatic veins and portal veins are patent. Gallbladder: Unremarkable. Spleen: Normal in size and attenuation. Pancreas: Unremarkable. Adrenal glands: Unremarkable. Kidneys: The contrast enhanced kidneys demonstrate mild cortical atrophy and are without hydronephrosis. The kidneys enhance symmetrically. A 5.2 cm cyst arises from the lower pole of the right kidney. Additional 1.3 cm cyst is seen in the right upper pole. Abdominal vasculature: There is advanced atherosclerotic calcification of the abdominal aorta. An infrarenal abdominal aortic aneurysm measures 3.6 x 3.9 cm (AP x transverse). The abdominal aorta is patent. The minimum patent luminal diameter measures up to 1.1 cm. A right axillary bifemoral bypass is patent. There is intraluminal thrombus with moderate to high-grade stenosis within the left aspect of the femorofemoral bypass. This is best seen on axial image #244. There is advanced atherosclerotic plaque and irregularity throughout the iliac arteries. 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 There is complete thrombosis of the proximal right superficial femoral artery. There is also likely complete thrombosis of the left proximal superficial femoral artery. Bowel: There is moderate colonic fecal retention. No bowel obstruction is seen. There is sigmoid diverticulosis without CT evidence of acute diverticulitis. The appendix is not visualized. Peritoneum: There is no intraperitoneal free air or abdominal ascites. Lymphadenopathy: None. Pelvic viscera: Evaluation of the pelvis is degraded by hardware in the right proximal femur. The prostate gland is enlarged and heterogeneous. The bladder wall is thickened/trabeculated indicating chronic outlet obstruction. Skeletal structures: The skeletal structures are osteopenic. See below for dedicated assessment of the lumbar spine. No lytic or blastic lesions are seen. There is posttraumatic deformity of the right proximal femur with intertrochanteric and intramedullary nails in place. There is incomplete bony fusion of the fragments. There is a chronic deformity of the sacrum. The bony pelvis and left proximal femur otherwise appear intact. Arthritic change is noted in the hips. LUMBAR SPINE: There is an acute burst-type compression fracture of T12. There is mild loss of height. There are only minimally retropulsed fragments by up to 3 mm. Fracture does not appear to involve the posterior elements. There is paravertebral edema. There is an age indeterminate but chronic-appearing superior end plate compression deformity of L4. Vertebral body height is otherwise maintained throughout the lumbar spine. Alignment is preserved. The transverse and spinous processes are intact. There is no spondylolysis. There is severe disc space narrowing at L5-S1. Only mild narrowing is seen at the remaining lumbar levels. Posterior disc ostomy complexes are seen all lumbar levels. There is likely at least mild central canal stenosis at L3-L4. The paraspinous soft tissues are within normal limits. IMPRESSION: 1. There is no acute posttraumatic intrathoracic abnormality. 2. There is no pleural effusion or pneumothorax. 3. Patchy groundglass consolidation in the right upper lobe is new from previous and likely represents pneumonia/aspiration pneumonitis. Clinical correlation will be required. 4. There is no evidence of solid organ injury in the abdomen or pelvis. 5. There is an acute burst-type compression fracture of L2. There is only minimal retropulsion of fragments. No posterior element involvement is identified and there is no significant central canal stenosis at this level. 6. Question a minimal subacute superior endplate compression fracture of T7. Correlate for point tenderness. 7. No additional acute fracture is seen involving the thoracic or lumbar spine. Chronic thoracolumbar compression deformities are discussed above. 8. Emphysema. 9. There are 2 spiculated pulmonary nodules seen in the right upper and right lower lobes which measure up to 10 mm and are unchanged from 11/18/2022. These are suspicious for neoplasms. An 8 mm irregular nodule in the right middle lobe is new from previous. Nonemergent follow-up with pulmonology is recommended, as is attention to these nodules at follow-up. 10. A right axillary bifemoral bypass is patent. 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 11. There is a 3.6 x 3.9 cm infrarenal abdominal aortic aneurysm. 12. Additional findings as above. ACT 112: Positive. There are findings on this exam that require communication between the performing entity and the patient following Patient Test Result Information Act ([place] Act 112) guidelines. Electronically signed by: Lamin Aragon M.D. 08/24/2023 7:[address] 08/24/23 16:56 CT SCAN OF THE CHEST, ABDOMEN, AND PELVIS WITH IV CONTRAST; CT SCAN OF THE THORACIC SPINE WITH IV CONTRAST; CT SCAN OF THE LUMBAR SPINE WITH IV CONTRAST CLINICAL HISTORY: Trauma. Fall. COMPARISON STUDY: Chest CT dated 11/18/2022. TECHNIQUE: Following the IV administration of 80 of Optiray 320, CT scan of the chest, abdomen, and pelvis was performed from the thoracic inlet to the proximal femora. Additionally, CT scan of the thoracic spine is performed from the lower cervical spine to the upper lumbar spine and CT scan of the lumbar spine is performed from the lower thoracic spine to the sacrum. Images for these examinations are reviewed in the axial, sagittal, and coronal planes. IV contrast was administered without complication. A dose lowering technique was utilized adhering to the principles of ALARA. CT DOSE: 2319.42 mGy.cm FINDINGS: CHEST: Thyroid: Normal in size and heterogeneous in attenuation. Thoracic aorta: There is atherosclerotic calcification of the thoracic aorta. There is ectasia of the ascending thoracic aorta which measures up to 3.9 cm in diameter. The remainder of the thoracic aorta is normal in caliber comment the arch demonstrates standard 3-vesselanatomy. No dissection is seen. Pulmonary vasculature: The pulmonary trunk is normal in caliber. There are no filling defects identified in the central pulmonary vessels to indicate pulmonary embolus. Note that this examination was not protocoled for evaluation of the pulmonary arteries. Heart: A pacemaker is noted in the left chest wall. The heart is top normal in size and without pericardial effusion. The coronary arteries are densely calcified. Lungs and pleural spaces: Emphysematous change is noted. Patchy ground glass consolidation throughout the right upper lobe is new from 11/18/2022. No pleural effusion or pneumothorax is identified. The trachea and central airways are clear. An 8 mm spiculated nodule in the right lower lobe on image #118 and a 10 mm spiculated nodule at the right apex on image #39 are unchanged. An 8 mm right middle lobe nodule on image #169 was not seen previously. Mediastinum: There is no mediastinal hematoma or lymphadenopathy. Pam: Clear. Axillae: There is no axillary lymphadenopathy. Bony thorax: The skeletal structures are osteopenic. See below for dedicated assessment of the thoracic spine. No acute/displaced rib fracture is identified. There are chronic/healed bilateral rib fractures. No lytic or blastic lesions are identified. THORACIC SPINE: There is no evidence of acute fracture or malalignment involving the thoracic spine. Question a minimal subacute superior endplate compression fracture of T7. This is best seen on sagittal image #37. There are mild chronic compression deformities of T2, T3, and T4. Vertebral body height there is otherwise maintained throughout the thoracic spine. Alignment is preserved. The transverse and spinous processes are intact. There is mild hyperkyphosis and the upper thoracic region. Small anterior osteophytes are seen throughout. There is mild multilevel degenerative disc space narrowing. There is no evidence of large disc herniation or high-grade central canal stenosis by CT. The paraspinous soft tissues are normal in appearance. ABDOMEN AND PELVIS: Liver: The contrast-enhanced liver is normal in size, contour, and attenuation. There is no intrahepatic biliary ductal dilatation. The hepatic veins and portal veins are patent. Gallbladder: Unremarkable. Spleen: Normal in size and attenuation. Pancreas: Unremarkable. Adrenal glands: Unremarkable. Kidneys: The contrast enhanced kidneys demonstrate mild cortical atrophy and are without hydronephrosis. The kidneys enhance symmetrically. A 5.2 cm cyst arises from the lower pole of the right kidney. Additional 1.3 cm cyst is seen in the right upper pole. Abdominal vasculature: There is advanced atherosclerotic calcification of the abdominal aorta. An infrarenal abdominal aortic aneurysm measures 3.6 x 3.9 cm (AP x transverse). The abdominal aorta is patent. The minimum patent luminal diameter measures up to 1.1 cm. A right axillary bifemoral bypass is patent. There is intraluminal thrombus with moderate to high-grade stenosis within the left aspect of the femorofemoral bypass. This is best seen on axial image #244. There is advanced atherosclerotic plaque and irregularity throughout the iliac arteries. 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 There is complete thrombosis of the proximal right superficial femoral artery. There is also likely complete thrombosis of the left proximal superficial femoral artery. Bowel: There is moderate colonic fecal retention. No bowel obstruction is seen. There is sigmoid diverticulosis without CT evidence of acute diverticulitis. The appendix is not visualized. Peritoneum: There is no intraperitoneal free air or abdominal ascites. Lymphadenopathy: None. Pelvic viscera: Evaluation of the pelvis is degraded by hardware in the right proximal femur. The prostate gland is enlarged and heterogeneous. The bladder wall is thickened/trabeculated indicating chronic outlet obstruction. Skeletal structures: The skeletal structures are osteopenic. See below for dedicated assessment of the lumbar spine. No lytic or blastic lesions are seen. There is posttraumatic deformity of the right proximal femur with intertrochanteric and intramedullary nails in place. There is incomplete bony fusion of the fragments. There is a chronic deformity of the sacrum. The bony pelvis and left proximal femur otherwise appear intact. Arthritic change is noted in the hips. LUMBAR SPINE: There is an acute burst-type compression fracture of T12. There is mild loss of height. There are only minimally retropulsed fragments by up to 3 mm. Fracture does not appear to involve the posterior elements. There is paravertebral edema. There is an age indeterminate but chronic-appearing superior end plate compression deformity of L4. Vertebral body height is otherwise maintained throughout the lumbar spine. Alignment is preserved. The transverse and spinous processes are intact. There is no spondylolysis. There is severe disc space narrowing at L5-S1. Only mild narrowing is seen at the remaining lumbar levels. Posterior disc ostomy complexes are seen all lumbar levels. There is likely at least mild central canal stenosis at L3-L4. The paraspinous soft tissues are within normal limits. IMPRESSION: 1. There is no acute posttraumatic intrathoracic abnormality. 2. There is no pleural effusion or pneumothorax. 3. Patchy groundglass consolidation in the right upper lobe is new from previous and likely represents pneumonia/aspiration pneumonitis. Clinical correlation will be required. 4. There is no evidence of solid organ injury in the abdomen or pelvis. 5. There is an acute burst-type compression fracture of L2. There is only minimal retropulsion of fragments. No posterior element involvement is i dentified and there is no significant central canal stenosis at this level. 6. Question a minimal subacute superior endplate compression fracture of T7. Correlate for point tenderness. 7. No additional acute fracture is seen involving the thoracic or lumbar spine. Chronic thoracolumbar compression deformities are discussed above. 8. Emphysema. 9. There are 2 spiculated pulmonary nodules seen in the right upper and right lower lobes which measure up to 10 mm and are unchanged from 11/18/2022. These are suspicious for neoplasms. An 8 mm irregular nodule in the right middle lobe is new from previous. Nonemergent follow-up with pulmonology is recommended, as is attention to these nodules at follow-up. 10. A right axillary bifemoral bypass is patent. 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 11. There is a 3.6 x 3.9 cm infrarenal abdominal aortic aneurysm. 12. Additional findings as above. ACT 112: Positive. There are findings on this exam that require communication between the performing entity and the patient following Patient Test Result Information Act ([place] Act 112) guidelines. Electronically signed by: Lamin Aragon M.D. 08/24/2023 7:00 PM Supervising Physician Co-Signing Physician Notes Patient seen and examined, chart reviewed, case discussed with Dr. Deleon and I agree with the assessment and plan as above. Patient fell out of a truck today. Uncertain if he passed out. Has ongoing back and pleuritic pain. Found to have L2 and T7 fractures No further internal injuries noted on imaging On exam he is resting, in ongoing discomfort - mild Skin - scattered bruises and lesions, no active bleeding or evidence of infection HEENT - MMM, Neck supple Heart- +S1/S2, regular, no m/r/g Lungs - CTA reproducible chest wall pain Abd - +BS, soft, NT/ND Labs and images reviewed Assessment/Plan -Pain control -PT/OT evaluation -Remainder as above Resident Activity Tracking Resident Involvement: Resident Care Provided Care Provided: Adult [facility] Medicine
[2023-08-25] MEDS ORDERED: ONDANSETRON 4 MG OD TAB PO PRN (02:28)
[2023-08-25] MEDS ORDERED: LORazepam 0.5 MG TAB PO STA (02:38)
[2023-08-25] MEDS: HYDROmorphone INJ 1 MG/ML SYRINGE IV PRN ×3 (02:54→21:33)
[2023-08-25] MEDS: ALBUT/IPRATROP 3MG/0.5MG NEB 3 ML VIAL NEB PRN (02:59)
[2023-08-25 03:44] LABS: Appearance Urine Clear (Clear); Bacteria Urine Automated Negative (Negative); Bilirubin Urine Negative (Negative); Blood Urine Negative (Negative); Color Urine Yellow; Epithelial Cell Urine Auto 0-5 /lpf (0-5); Glucose Urine UA Negative (Negative); Ketones Urine Negative (Negative); Leukocyte Esterase Urine Negative (Negative); Nitrite Urine Negative (Negative); Protein Urine 1+ (Negative); RBC Urine Automated 0-4 /hpf (0-4); Specific Gravity Urine > 1.045 (1.000-1.030); Urobilinogen Urine Negative (Negative); pH Urine 5.5 (4.5-7.5)
--- NOTE | 2023-08-25 05:30 | Billing Data ---
Date of Service August 24, 2023 Coding Level of Care Code 65023 INT INP/OBS CARE
[2023-08-25 06:28] LABS: Basophils # (auto) 0.04 K/uL (0.00-0.20); Basophils % (auto) 0.4 %; Eosinophils # (auto) 0.31 K/uL (0.00-0.50); Eosinophils % (auto) 2.9 %; Hemoglobin 11.4 g/dl (14.0-18.0); Immature Granulocytes # (auto) 0.07 K/uL (0.01-0.20); Immature Granulocytes % (auto) 0.7 %; Lymphocytes # (auto) 1.18 K/uL (1.20-3.40); Lymphocytes % (auto) 11.1 %; Mean Corpuscular Hemoglobin 32.9 pg (25.0-34.0); Mean Corpuscular Hgb Conc 32.6 g/dL (32.0-36.0); Mean Corpuscular Volume 100.9 fL (80.0-100.0); Mean Platelet Volume 10.4 fL (9.4-12.4); Monocytes # (auto) 0.69 K/uL (0.11-0.59); Monocytes % (auto) 6.5 %; Neutrophils # (auto) 8.33 K/uL (1.40-6.50); Neutrophils % (auto) 78.4 %; Platelet Count 225 K/uL (130-400); RDW Coefficient of Variation 14.4 % (11.5-14.5); RDW Standard Deviation 53.9 fL (36.4-46.3); Red Blood Count 3.47 M/uL (4.70-6.10); White Blood Count 10.62 K/ul (4.8-10.8)
[2023-08-25] MEDS: ACETAMINOPHEN 500 MG TAB PO SCH ×3 (06:31→20:08)
[2023-08-25] MEDS: FAMOTIDINE 20 MG TAB PO SCH (06:31)
[2023-08-25 06:48] LABS: Albumin Globulin Ratio 1.1 (0.9-2); Albumin Level 3.4 gm/dl (3.4-5.0); BUN Creatinine Ratio 24.7 (10-20); Bilirubin,Total 0.5 mg/dl (0.2-1.0); Calcium 8.7 mg/dl (8.6-10.3); Creatinine Clr Calc Pharmacy 46.9 ml/min; Est GFR (African American) 96.6 ml/min; Est GFR (Non-African American) 83.3 ml/min; Magnesium 2.1 mg/dl (1.7-2.4); Potassium 4.2 mmol/L (3.5-5.1); Total Protein 6.4 gm/dl (6.0-8.3)
[2023-08-25] MEDS: FLUTICASONE PROPIONATE NA SPR 16 GM BTL SCH (10:10)
[2023-08-25] MEDS: FLUTICASONE/VILANTEROL 100/25MCG 14 PUFFS/INHALER INH SCH (10:11)
[2023-08-25] MEDS: TAMSULOSIN HCL 0.4 MG CAP PO SCH (10:13)
[2023-08-25] MEDS: PANTOprazole 40 MG TAB PO SCH ×2 (10:13→20:09)
[2023-08-25] MEDS: METOPROLOL SUCC 25MG EXT REL TAB PO SCH (10:13)
[2023-08-25] MEDS: FUROSEMIDE 20 MG TAB PO SCH (10:13)
[2023-08-25] MEDS: ASPIRIN 81 MG ECTAB PO SCH (10:14)
[2023-08-25] MEDS: FINASTERIDE 5 MG TAB PO SCH (10:14)
[2023-08-25] MEDS: carBAMazepine 200 MG TABLET PO SCH ×4 (10:14→20:08)
[2023-08-25] MEDS: HEPARIN SOD 5,000 UNIT/0.5 ML VIAL SQ SCH ×3 (10:15→20:08)
[2023-08-25] MEDS: POLYETHYLENE (MIRALAX) 17 GM PACK PO SCH (10:15)
--- NOTE | 2023-08-25 10:16 | Hospitalist Progress Note ---
Date of Service August 25, 2023 Assessment & Plan (1) Fall: Plan: Pt is a 83 yo male with a past medical history of pacemaker, HTN, HLD, GERD, CAD, COPD on 2L oxygen at night, hx Mi with stent, hx PAD with bypass, and BPH who presents to the hospital on 08/24/23 for fall. Today, ordered pacemaker interrogation, echo, and orthostatics. Holding PT/OT due to awaiting recommendations for ortho spine on compression fx. #Fall - presented after fall out of car, seems to have been a syncopal episode -Spinal imaging with an L2 compression fx with retropulsed fragments up to 3mm and a questionable T7 compression fx. However, L2 compression fx was seen on XR (08/21) which was prior to this event so likely unrelated - head CT wnl, chest CT no posttraumatic abnormalities -pain control: tylenol scheduled, IV Dilaudid prn -PT/OT, on hold pending ortho spine -consider ortho spine consult #Syncope - will do orthostatics, suspect this may be at play given low BP here and use of lasix/ flomax - pacemaker interrogation ordered to see if event happened during episode - will get echo to evaluate for severe valve disease as a possible cause too #Chest pain -reproducible, likely MSK in setting of traumatic fall and spinal fx -trops x2 neg -EKG without ST changes - lidocaine/Voltaren gel prn for MSK discomfort #Consolidation on CXR -CT chest: patchy ground glass consolidation in the right upper lobe is new. No leukocytosis. Neg procal. Likely pneumonitis. Defer abx. #Pulmonary nodule -There are 2 spiculated pulmonary nodules seen in the right upper and right lower lobes which measure up to 10 mm and are unchanged from 11/18/2022. These are suspicious for neoplasms. An 8 mm irregular nodule in the right middle lobe is new from previous. Nonemergent follow-up with pulmonology is recommended, as is attention to these nodules at follow-up. #AAA, chronic -3.6 x 3.9 cm infrarenal abdominal aortic aneurysm seen on imaging #CHF #CAD s/p PCI #PAD s/p bypass -cont. asa, metoprolol, lasix #COPD -chronically on 2L O2 qhs -cont. symbicort -duoneb prn #HTN -cont. metoprolol -he did have a drop in systolic BP following nitro administration in the ED, however, this improved with IVF. Now stable, wnl. #HLD -cont. statin #H/o convulsions #Muscle spasms -cont. carbamazepine, methocarbamol #GERD -cont. pepcid, protonix #BPH -cont. finasteride, tamsulosin #Constipation -cont. miralax DVT ppx: heparin SQ Admission and Anticipated Discharge Date Admission Date: August 24, 2023 Supervising Physician Co-Signing Physician Notes I personally examined the patient and verified all daniels points of history and exam, discussed case, and agree with decision making with Dr Clemente main real complaint is left-sided reproducible chest pain that tracks along the rib and seems to be worse with movement, Especially sitting up. Surprisingly no significant back pain other than a little bit on the opposite side of where his rib hurts. Vitals noted, in general he is awake and alert pleasant no distress. Osteopathic/musculoskeletal shows left ribs around eighth rib to be inhaled, tender, decreased range of motionbalanced ligamentous tensionsomewhat improved. Patient tolerated well. No other focal deficits. Skin chronic ashen appearance. Right lower extremity with healing wounds, distally he has about 2- second capillary refill and good color to his toes. fallafter revisiting his history multiple times, he did have a prodrome of dizziness, making dehydration/orthostasis the most likely versus simple loss of balance less likely but possible. Echo reassuring, pacer interrogation to be donebut after being able to revisit his history, it seems most likely to be a more simple mechanism. Spinal fractureslikely osteoporoticgiven his lack of pain or neurologic deficits, I suspect these will largely be managed with conservative care, but the radiographic read of a "burst fracture on his 1 fracture does cause a degree of concernwill ask Ortho/spine opinion to be safe. PT/OT eval and treat after spine evaluation. Clotting noted on CTA as relates to right lower extremityno pain, no symptoms of claudication, and distally appears to be surprisingly neurovascularly intact DVT prophylaxisheparin subcu otherwise as above Subjective Pt is a 83 yo male with a past medical history of pacemaker, HTN, HLD, GERD, CAD, COPD on 2L oxygen at night, hx Mi with stent, hx PAD with bypass, and BPH who presents to the hospital on 08/24/23 for fall. Pt states he is feeling okay today with the only pain being the pain he has over a spot on his chest that is unchanged from yesterday and occurred immediately after the fall. He states it hurts worse when you press on it. No pain with arm movements or deep breaths, and no radiation. He states that what happened yesterday is that he got in his car in the driveway and then the next thing he knew he was on the ground. He states he does not recall anything in between. Was not incontinent of bowel or bladder. No chest pain or SOB. He states he did have an OR in the past with a stent and a stroke maybe a few years ago. States he broke his hip earlier this year and had gone to rehab after but left rehab after a few weeks because he said they really only did an hour of actually rehab a day. Review of Systems Review of Systems: Per HPI. Physical Exam Physical Exam: General:Alert and oriented, no acute distress, Cardio: Regular rate and rhythm, no murmur, Resp:Lungs clear to auscultation b/l, GI: Soft and nontender, nondistended, bowel sounds active Skin: Warm, pink, dry, Psych: Mood-affect congruence. Results & Data Results & Data Vital Signs (Past 12 Hours) Vital Signs Pulse Pulse Resp BP Pulse Ox Pulse Ox O2 Del Method 08/25/23 07:12 72 08/25/23 06:00 22 98/60 L 100 Nasal Cannula 08/25/23 05:00 77 22 118/63 99 Nasal Cannula 08/25/23 04:05 81 08/25/23 04:00 Nasal Cannula 08/25/23 04:00 83 17 118/77 94 Nasal Cannula 08/25/23 04:00 94 08/25/23 00:48 72 08/25/23 00:37 70 22 128/65 99 Nasal Cannula 08/24/23 23:04 80 20 150/100 H 96 Nasal Cannula O2 Del Method O2 Flow Rate O2 Flow Rate 08/25/23 07:12 08/25/23 06:00 2 08/25/23 05:00 2 08/25/23 04:05 08/25/23 04:00 2 08/25/23 04:00 2 08/25/23 04:00 Nasal Cannula 2 08/25/23 00:48 08/25/23 00:37 2 08/24/23 23:04 2 Resident Activity Tracking Resident Involvement: Resident Care Provided Care Provided: Adult Hospital Medicine
[2023-08-25] MEDS ORDERED: FUROSEMIDE 40 MG TAB PO ONE (10:34)
[2023-08-25] MEDS: METHOCARBAMOL 750 MG TABLET PO SCH ×3 (10:43→20:08)
[2023-08-25] MEDS ORDERED: LACTATED RINGER'S 500 ML IV ONE (12:18)
[2023-08-25] MEDS ORDERED: LIDOCAINE 5% 1 PATCH TD PRN (12:20)
[2023-08-25] MEDS: HYDROmorphone INJ 0.5 MG/0.5 ML SYR IV PRN ×2 (13:47→19:18)
--- NOTE | 2023-08-25 14:33 | Electrocardiogram Report ---
Test Reason : Blood Pressure : / mmHG Vent. Rate : 081 BPM Atrial Rate : 081 BPM P-R Int : 232 ms QRS Dur : 130 ms QT Int : 432 ms P-R-T Axes : 079 084 037 degrees QTc Int : 501 ms Atrial-sensed ventricular-paced rhythm with prolonged AV conduction Abnormal ECG When compared with ECG of 17-NOV-2022 23:33, Vent. rate has decreased BY 22 BPM Confirmed by All Merino ([id number]) on 08/25/2023 2:33:08 PM Referred By: REFERRED SELF Confirmed By:All Merino
--- NOTE | 2023-08-25 14:35 | Electrocardiogram Report ---
Test Reason : Blood Pressure : / mmHG Vent. Rate : 084 BPM Atrial Rate : 084 BPM P-R Int : 232 ms QRS Dur : 138 ms QT Int : 434 ms P-R-T Axes : 085 085 249 degrees QTc Int : 512 ms Atrial-sensed ventricular-paced rhythm with prolonged AV conduction Abnormal ECG When compared with ECG of 24-AUG-2023 16:50, Vent. rate has increased BY 3 BPM Confirmed by All Merino ([id number]) on 08/25/2023 2:35:20 PM Referred By: REFERRED SELF Confirmed By:All Merino
--- NOTE | 2023-08-25 16:16 | XCELERA ---
[id number]
--- NOTE | 2023-08-25 18:25 | Billing Data ---
Date of Service August 25, 2023 Coding Level of Care Code 98665 SUB INP/OBS CARE
[2023-08-25] MEDS: SIMVASTATIN 40 MG TAB PO SCH (20:09)
[2023-08-25] MEDS: DOCUSATE SODIUM/SENNA 50/8.6MG TAB PO SCH (20:09)
[2023-08-26] MEDS: ACETAMINOPHEN 500 MG TAB PO SCH ×3 (06:07→21:02)
[2023-08-26] MEDS: FAMOTIDINE 20 MG TAB PO SCH (06:07)
--- NOTE | 2023-08-26 06:46 | Hospitalist Progress Note ---
Date of Service August 26, 2023 Assessment & Plan (1) Fall: Plan: Pt is a 83 yo male with a past medical history of pacemaker, HTN, HLD, GERD, CAD, COPD on 2L oxygen at night, hx Mi with stent, hx PAD with bypass, and BPH who presents to the hospital on 08/24/23 for fall. Today, awaiting pacemaker interrogation and holding PT/OT due to awaiting recommendations for ortho spine on compression fx. #Fall - presented after fall out of car, seems to have been a syncopal episode -Spinal imaging with an L2 compression fx with retropulsed fragments up to 3mm and a questionable T7 compression fx. However, L2 compression fx was seen on XR (08/21) which was prior to this event so likely unrelated - head CT wnl, chest CT no posttraumatic abnormalities -pain control: tylenol scheduled, IV Dilaudid prn -PT/OT, on hold pending ortho spine -ortho spine consulted, pending recommendations #Syncope - will do orthostatics, suspect this may be at play given low BP here and use of lasix/ flomax - pacemaker interrogation ordered to see if event happened during episode - echo; EF 55-60% with no wall abnorm and mild/mod - pacemaker interrogation pending #Chest pain -reproducible, likely MSK in setting of traumatic fall and spinal fx -trops x2 neg -EKG without ST changes - lidocaine/Voltaren gel prn for MSK discomfort #Consolidation on CXR -CT chest: patchy ground glass consolidation in the right upper lobe is new. No leukocytosis. Neg procal. Likely pneumonitis. Defer abx. #Pulmonary nodule -There are 2 spiculated pulmonary nodules seen in the right upper and right lower lobes which measure up to 10 mm and are unchanged from 11/18/2022. These are suspicious for neoplasms. An 8 mm irregular nodule in the right middle lobe is new from previous. - Nonemergent follow-up with pulmonology is recommended #AAA, chronic -3.6 x 3.9 cm infrarenal abdominal aortic aneurysm seen on imaging #CHF #CAD s/p PCI #PAD s/p bypass -cont. asa, metoprolol, lasix #COPD -chronically on 2L O2 qhs -cont. symbicort -duoneb prn #HTN -cont. metoprolol -he did have a drop in systolic BP following nitro administration in the ED, however, this improved with IVF. Now stable, wnl. #HLD -cont. statin #H/o convulsions #Muscle spasms -cont. carbamazepine, methocarbamol #GERD -cont. pepcid, protonix #BPH -cont. finasteride, tamsulosin #Constipation -cont. miralax DVT ppx: heparin SQ Admission and Anticipated Discharge Date Admission Date: August 24, 2023 Supervising Physician Co-Signing Physician Notes I personally examined the patient and verified all daniels points of history and exam, discussed case, and agree with decision making with Dr Clemente Still has ongoing left-sided rib pain. No back pain. Vitals noted, in general he is awake and alert pleasant no distress. Osteopathic/musculoskeletal shows left ribs around eighth rib to be inhaled, tender, decreased range of motionbalanced ligamentous tensionsomewhat improved. Patient tolerated well. No other focal deficits. Skin chronic ashen appearance. Lower extremity wounds slowly healing fallafter revisiting his history multiple times, he did have a prodrome of di zziness, making dehydration/orthostasis the most likely versus simple loss of balance less likely but possible. Echo reassuring, pacer interrogation to be donebut after being able to revisit his history, it seems most likely to be a more simple mechanism. Spinal fractureslikely osteoporoticgiven his lack of pain or neurologic deficits, I suspect these will largely be managed with conservative care, but the radiographic read of a "burst fracture" on his 1 fracture does cause a degree of concern awaiting Ortho/spine opinion to be safe. PT/OT eval and treat after spine evaluation. Clotting noted on CTA as relates to right lower extremityno pain, no symptoms of claudication, and distally appears to be surprisingly neurovascularly intact DVT prophylaxisheparin subcu otherwise as above Subjective Pt is a 83 yo male with a past medical history of pacemaker, HTN, HLD, GERD, CAD, COPD on 2L oxygen at night, hx Mi with stent, hx PAD with bypass, and BPH who presents to the hospital on 08/24/23 for fall. Today, pt states he feels no better or worse than yesterday. Chest pain still present and pt informed he could try lidocaine patch or Voltaren gel if it bothers him, he just has to ask. He voiced understanding and states he does not feel it bothers him that much to need anything for it. No questions or complaints at this time. Tolerating oral intake without issue. Review of Systems Review of Systems: Per HPI. Physical Exam Physical Exam: General:Alert and oriented, no acute distress, Cardio: Regular rate and rhythm, no murmur, Resp:Lungs clear to auscultation b/l, GI: Soft and nontender, nondistended, bowel sounds active MSK: Reproducible chest pain with palpation of a mid thoracic rib just left of the sternal border that feels to be stuck up Skin: Warm, pink, dry, Psych: Mood-affect congruence. Results & Data Results & Data Vital Signs (Past 12 Hours) Vital Signs Temp Pulse Pulse Resp BP Pulse Ox O2 Del Method 08/26/23 04:21 36.3 C L 81 16 150/81 H 97 Nasal Cannula 08/26/23 04:08 72 08/26/23 01:33 Nasal Cannula 08/25/23 23:24 36.7 C 80 18 143/76 H 91 Room Air 08/25/23 19:54 37.1 C 85 18 114/67 91 Room Air O2 Flow Rate 08/26/23 04:21 2 08/26/23 04:08 08/26/23 01:33 3 08/25/23 23:24 08/25/23 19:54 Resident Activity Tracking Resident Involvement: Resident Care Provided Care Provided: Adult Hospital Medicine
[2023-08-26] MEDS: FLUTICASONE/VILANTEROL 100/25MCG 14 PUFFS/INHALER INH SCH (08:54)
[2023-08-26] MEDS: FLUTICASONE PROPIONATE NA SPR 16 GM BTL SCH (08:54)
[2023-08-26] MEDS: POLYETHYLENE (MIRALAX) 17 GM PACK PO SCH (08:54)
[2023-08-26] MEDS: HEPARIN SOD 5,000 UNIT/0.5 ML VIAL SQ SCH ×2 (08:55→21:01)
[2023-08-26] MEDS: METOPROLOL SUCC 25MG EXT REL TAB PO SCH (08:56)
[2023-08-26] MEDS: PANTOprazole 40 MG TAB PO SCH ×2 (08:56→21:01)
[2023-08-26] MEDS: ASPIRIN 81 MG ECTAB PO SCH (08:56)
[2023-08-26] MEDS: carBAMazepine 200 MG TABLET PO SCH ×3 (08:57→20:59)
[2023-08-26] MEDS: FINASTERIDE 5 MG TAB PO SCH (08:58)
[2023-08-26] MEDS: TAMSULOSIN HCL 0.4 MG CAP PO SCH (08:58)
[2023-08-26] MEDS: METHOCARBAMOL 750 MG TABLET PO SCH ×3 (08:58→21:00)
[2023-08-26] MEDS: FUROSEMIDE 20 MG TAB PO SCH (08:58)
[2023-08-26] MEDS: HYDROmorphone INJ 1 MG/ML SYRINGE IV PRN ×4 (09:19→22:21)
[2023-08-26] MEDS: DICLOFENAC SOD 1% GEL 100 GM TUBE EXT PRN (12:14)
--- NOTE | 2023-08-26 17:23 | Billing Data ---
Date of Service August 26, 2023 Coding Level of Care Code 98606 SUB INP/OBS CARE
--- NOTE | 2023-08-26 19:05 | Orthopedic Consultation ---
Date of Service August 26, 2023 History of Present Illness Reason for Consultation: . L2 and T& compression fractures Requesting Physician: . Attending Physician: Antonio Medina DO . 83-year-old gentleman admitted yesterday status post a fall, with a past medical history of CAD, history of PCI, GERD, BPH, hypertension, hyperlipidemia, COPD on 2 L nasal cannula at night who presented to the emergency department 08/25/23 for evaluation of "crushing chest pain" after having a fall. The patient notes to me that he did not fall out of a truck, he was either sitting or standing position but he does not recall exactly. The patient also has a history of developing a compression fracture at L2 earlier in July which he was following with his primary care physician, no brace and some continued low back pain. He reports he does have some pain in the mid thoracic spine, but no shortness of breath, no neural compressive symptoms in the lower extremities. Exam reveals patient has some minimal pain at most to midline palpation in the mid thoracic spine, no significant pain in the lumbar region or minimal at most in the mid lumbar spine. He has intact strength in the lower extremities, no clonus. CT scans of the thoracic and lumbar spine from August 25, 2023 reviewed, this is my separate interpretation, this reveals earlier compression fractures of some of the other vertebral levels, the T7 level which was identified is potentially a new fracture as a very minimal superior endplate compression aspect to it otherwise unremarkable. No evidence of additional fractures such as transverse process or ribs in this region. The lumbar CT scan reveals a superior endplate compression fracture of L2, not a significant amount of collapse, minimal if any retropulsion. Impression: Potentially 1 month history of L2 compression fracture, exact date of origination unknown, and what may be a minor fracture of the superior plate of T7. Plan: Today I spent time talking with the patient, I did let him know that he does have these 2 areas that might be causing his back pain. At this time I would recommend mobilization with physical therapy weightbearing as tolerated, the T7 fracture is not 1 that I would say needs bracing, just monitor follow-up with radiographs. The L2 fracture does need additional follow-up at some point in the next 2 to 3 weeks with upright radiographs, a lumbar corset could be provided to help with low back pain. Follow-up in the next 2 to 3 weeks for both fractures. Allergies Allergy/AdvReac Type Severity Reaction Status Date / Time tiotropium Allergy Severe "CAN'T Verified 08/24/23 18:15 CATCH MY BREATH". Home Medications Medication Instructions Recorded Confirmed Type albuterol sulfate 90 mcg/actuation 2 puff inhalation Q4H PRN 11/17/22 08/24/23 History aerosol inhaler Shortness Of Breath aspirin 81 mg tablet,delayed 81 mg PO DAILY 11/17/22 08/24/23 History release budesonide-formoterol HFA 160 2 inh inhalation BID 11/17/22 08/24/23 History mcg-4.5 mcg/actuation aerosol inhaler (Symbicort) carbamazepine 200 mg tablet 200 mg PO TID 11/17/22 08/24/23 History cholecalciferol (vitamin D3) 25 50 mcg PO DAILY 11/17/22 08/24/23 History mcg (1,000 unit) tablet famotidine 20 mg tablet 20 mg PO DAILYBB 11/17/22 08/24/23 History finasteride 5 mg tablet 5 mg PO DAILY 11/17/22 08/24/23 History fluticasone propionate 50 2 spray intranasal DAILY 11/17/22 08/24/23 History mcg/actuation nasal spray,suspension folic acid 1 mg tablet 1 mg PO DAILY 11/17/22 08/24/23 History furosemide 20 mg tablet 20 mg PO DAILY 11/17/22 08/24/23 History metoprolol succinate 25 mg 12.5 mg PO DAILY 11/17/22 08/24/23 History tablet,extended release 24 hr pantoprazole 40 mg tablet,delayed 40 mg PO BID 11/17/22 08/24/23 History release potassium chloride 10 mEq 10 meq PO DAILY 11/17/22 08/24/23 History tablet,extended release(part/cryst) (Klor-Con M) simvastatin 20 mg tablet 40 mg PO QPM 11/17/22 08/24/23 History tamsulosin 0.4 mg capsule 0.8 mg PO QAM 11/17/22 08/24/23 History tizanidine 4 mg tablet 4 mg PO Q8H PRN MUSCLE SPASMS 11/17/22 08/24/23 History polyethylene glycol 3350 17 gram 17 g PO DAILY #30 ea 11/22/22 08/24/23 Rx oral powder packet (Miralax) sennosides 8.6 mg-docusate sodium 2 tab PO HS #20 tabs 11/22/22 08/24/23 Rx 50 mg tablet (Senokot-S) acetaminophen 500 mg tablet 1,000 mg PO Q8 PRN Fever Or Pain 08/24/23 08/24/23 History (Tylenol Extra Strength) lorazepam 0.5 mg tablet 0.5 mg PO Q12 PRN Anxiety 08/24/23 08/24/23 History methocarbamol 750 mg tablet 750 mg PO TID 08/24/23 08/24/23 History oxycodone 10 mg tablet 10 mg PO Q6 PRN Pain 08/24/23 08/24/23 History vit no.95-ferrous 1 tab PO QAM 08/24/23 08/24/23 History fumarate 28 mg-folic acid 800 mcg tablet () Past Med/Surg History Medical History Peripheral arterial disease status post right femoral-popliteal Viabahn for stenting Pulmonary nodules AAA (abdominal aortic aneurysm) Chronic systolic heart failure Paroxysmal atrial fibrillation Rib fracture 07/2022: "Mildly displaced right lateral 10th rib fracture" History of convulsions 2002 per [facility] records Neck pain History of OR (myocardial infarction) BPH (benign prostatic hyperplasia) ICD (implantable cardioverter-defibrillator) in place Hyperlipidemia Hypertension GERD (gastroesophageal reflux disease) Status post laparotomy with repair Perforated gastric ulcer CAD (coronary artery disease) Post PCI to the circumflex in 2001 COPD (chronic obstructive pulmonary disease) Surgical History History of hip surgery 11/19/22 ([facility]): R intertrochanteric fx tx'd with cephalomedullary nail History of implantable cardioverter-defibrillator (ICD) placement History of laparotomy Family History Other Family history non-contributory Social History Smoking Status: Former smoker Tobacco Type: Cigars Cigarettes Per Day: 3-4; Hx Alcohol Use: No Hx Substance Use: No Preferred Language: Portuguese Communication Ability: Effective Director Of [employer] Required: No Beliefs That Will Affect Care: None Current Living Situation: Significant Other Feels Safe at Home: Yes Assistive Devices: Oxygen - at Night and Walker Review of Systems All systems reviewed & are unremarkable except as noted in HPI & below. Physical Exam . Results & Data Results & Data Laboratory Results . Diagnostic Findings . PG Care Time/CCT Total # of Minutes Spent Total Time Spent with Patient: Total time spent is greater than 50% in coordination of care (as documented) at patient's floor/unit and/or counseling patient: Coding Level of Care Code 28722 IN/OBS CONSULT LVL 3,45M
[2023-08-26] MEDS: SIMVASTATIN 40 MG TAB PO SCH (21:00)
[2023-08-26] MEDS: DOCUSATE SODIUM/SENNA 50/8.6MG TAB PO SCH (21:02)
[2023-08-27] MEDS: FAMOTIDINE 20 MG TAB PO SCH (05:34)
[2023-08-27] MEDS: ACETAMINOPHEN 500 MG TAB PO SCH ×3 (05:34→22:34)
--- NOTE | 2023-08-27 06:51 | Hospitalist Progress Note ---
Date of Service August 27, 2023 Assessment & Plan (1) Fall: Plan: Pt is a 83 yo male with a past medical history of pacemaker, HTN, HLD, GERD, CAD, COPD on 2L oxygen at night, hx Mi with stent, hx PAD with bypass, and BPH who presents to the hospital on 08/24/23 for fall. Today, PT/OT recommendations pending. Ortho spine saw pt last night and recommended mobilization and f/u i 2-3 weeks for films. #Fall - presented after fall out of car, seems to have been a syncopal episode -Spinal imaging with an L2 compression fx with retropulsed fragments up to 3mm and a questionable T7 compression fx. However, L2 compression fx was seen on XR (08/21) which was prior to this event so likely unrelated - head CT wnl, chest CT no posttraumatic abnormalities -pain control: tylenol scheduled, IV Dilaudid prn -PT/OT, awaiting recommendations -ortho spine consulted; recommend mobilization with physical therapy weightbearing as tolerated, lumbar corset, f/u 2-3 weeks for upright films #Syncope - will do orthostatics, suspect this may be at play given low BP here and use of lasix/ flomax - pacemaker interrogation ordered to see if event happened during episode - echo; EF 55-60% with no wall abnorm and mild/mod - pacemaker interrogation pending #Chest pain -reproducible, likely MSK in setting of traumatic fall and spinal fx -trops x2 neg -EKG without ST changes - lidocaine/Voltaren gel prn for MSK discomfort #Hypokalemia - today 3.1 - will repeat with 40 mEq KCl po x2 today #Consolidation on CXR -CT chest: patchy ground glass consolidation in the right upper lobe is new. No leukocytosis. Neg procal. Likely pneumonitis. Defer abx. #Pulmonary nodule -There are 2 spiculated pulmonary nodules seen in the right upper and right lower lobes which measure up to 10 mm and are unchanged from 11/18/2022. These are suspicious for neoplasms. An 8 mm irregular nodule in the right middle lobe is new from previous. - Nonemergent follow-up with pulmonology is recommended #AAA, chronic -3.6 x 3.9 cm infrarenal abdominal aortic aneurysm seen on imaging #CHF #CAD s/p PCI #PAD s/p bypass -cont. asa, metoprolol, lasix #COPD -chronically on 2L O2 qhs -cont. symbicort -duoneb prn #HTN -cont. metoprolol -he did have a drop in systolic BP following nitro administration in the ED, however, this improved with IVF. Now stable, wnl. #HLD -cont. statin #H/o convulsions #Muscle spasms -cont. carbamazepine, methocarbamol #GERD -cont. pepcid, protonix #BPH -cont. finasteride, tamsulosin #Constipation -cont. miralax DVT ppx: heparin SQ Prior to hospital stay: pt lives with significant other, used a walker to get around, completed ADLs on own Admission and Anticipated Discharge Date Admission Date: August 24, 2023 Supervising Physician Co-Signing Physician Notes I personally examined the patient and verified all daniels points of history and exam, discussed case, and agree with decision making with Dr Bryn gutiérrez - will need rehab. family aware and noted they're trying to convince him of this. case management d/w pt and family as well. pt sleeping at the time i see him. vitals noted resting comfortably overall, once he reaches for his area of rib dysfunction and grimaces a little, otherwise no distress. No other focal deficits. Skin chronic ashen appearance. fallafter revisiting his history multiple times, he did have a prodrome of dizziness, making dehydration/orthostasis the most likely versus simple loss of balance less likely but possible. Echo reassuring, pacer interrogation tdonebut after being able to revisit his history, it seems most likely to be a more simple mechanism. Spinal fractureslikely osteoporoticappreciate ortho/spine reassurrance. PT/OT eval and treat Clotting noted on CTA as relates to right lower extremityno pain, no symptoms of claudication, and distally appears to be surprisingly neurovascularly intact DVT prophylaxisheparin subcu otherwise as above, quite weak - case management working on subacute rehab Subjective Pt is a 83 yo male with a past medical history of pacemaker, HTN, HLD, GERD, CAD, COPD on 2L oxygen at night, hx Mi with stent, hx PAD with bypass, and BPH who presents to the hospital on 08/24/23 for fall. Today, pt states he is feeling okay. He states his chest pain is better today, not bothering him very much so far today. He has no SOB, fever, or chills. No questions or complaints at this time. Review of Systems Review of Systems: Per HPI. Physical Exam Physical Exam: General:Alert and oriented, no acute distress, very thin male Cardio: Regular rate and rhythm, no murmur, Resp:Lungs clear to auscultation b/l, GI: Soft and nontender, nondistended, bowel sounds active MSK: Reproducible chest pain with palpation of a mid thoracic rib just left of the sternal border that feels to be stuck up, with tenderness better today Skin: Warm, pink, dry, Psych: Mood-affect congruence. Results & Data Results & Data Vital Signs (Past 12 Hours) Vital Signs Temp Pulse Pulse Pulse Resp BP BP 08/27/23 04:03 82 08/27/23 03:06 37.1 C 73 18 145/76 H 08/26/23 23:50 36.9 C 77 18 118/74 08/26/23 22:08 08/26/23 20:33 37.2 C 77 17 121/69 Pulse Ox O2 Del Method O2 Flow Rate 08/27/23 04:03 08/27/23 03:06 100 Nasal Cannula 2 08/26/23 23:50 94 Room Air 08/26/23 22:08 Room Air, Nasal Cannula 2 08/26/23 20:33 93 Room Air Resident Activity Tracking Resident Involvement: Resident Care Provided Care Provided: Adult Hospital Medicine
[2023-08-27 07:50] LABS: Basophils # (auto) 0.06 K/uL (0.00-0.20); Basophils % (auto) 0.9 %; Eosinophils # (auto) 0.64 K/uL (0.00-0.50); Eosinophils % (auto) 9.7 %; Hematocrit (blood only) 29.6 % (42.0-52.0); Hemoglobin 10.1 g/dl (14.0-18.0); Immature Granulocytes # (auto) 0.02 K/uL (0.01-0.20); Immature Granulocytes % (auto) 0.3 %; Lymphocytes # (auto) 1.48 K/uL (1.20-3.40); Lymphocytes % (auto) 22.5 %; Mean Corpuscular Hemoglobin 32.9 pg (25.0-34.0); Mean Corpuscular Hgb Conc 34.1 g/dL (32.0-36.0); Mean Corpuscular Volume 96.4 fL (80.0-100.0); Mean Platelet Volume 11.1 fL (9.4-12.4); Monocytes # (auto) 0.57 K/uL (0.11-0.59); Monocytes % (auto) 8.7 %; Neutrophils % (auto) 57.9 %; Platelet Count 206 K/uL (130-400); RDW Standard Deviation 49.7 fL (36.4-46.3); Red Blood Count 3.07 M/uL (4.70-6.10); White Blood Count 6.57 K/ul (4.8-10.8)
[2023-08-27 08:03] LABS: Albumin Globulin Ratio 1.1 (0.9-2); Albumin Level 3.1 gm/dl (3.4-5.0); BUN Creatinine Ratio 37.9 (10-20); Bilirubin,Total 0.4 mg/dl (0.2-1.0); Calcium 8.3 mg/dl (8.6-10.3); Creatinine Clr Calc Pharmacy 49.1 ml/min; Est GFR (African American) 102.9 ml/min; Est GFR (Non-African American) 88.8 ml/min; Globulin 2.9 gm/dl (2.5-4.0); Potassium 3.1 mmol/L (3.5-5.1)
[2023-08-27] MEDS ORDERED: POTASSIUM CHLORIDE CRTAB 20 MEQ TABCR PO STA (08:27)
[2023-08-27] MEDS: ASPIRIN 81 MG ECTAB PO SCH (08:46)
[2023-08-27] MEDS: TAMSULOSIN HCL 0.4 MG CAP PO SCH (08:46)
[2023-08-27] MEDS: FINASTERIDE 5 MG TAB PO SCH (08:47)
[2023-08-27] MEDS: METHOCARBAMOL 750 MG TABLET PO SCH ×3 (08:47→21:43)
[2023-08-27] MEDS: PANTOprazole 40 MG TAB PO SCH ×2 (08:47→21:43)
[2023-08-27] MEDS: FUROSEMIDE 20 MG TAB PO SCH (08:47)
[2023-08-27] MEDS: METOPROLOL SUCC 25MG EXT REL TAB PO SCH (08:47)
[2023-08-27] MEDS: carBAMazepine 200 MG TABLET PO SCH ×3 (08:47→21:43)
[2023-08-27] MEDS: DICLOFENAC SOD 1% GEL 100 GM TUBE EXT PRN ×2 (08:48→19:45)
[2023-08-27] MEDS: FLUTICASONE/VILANTEROL 100/25MCG 14 PUFFS/INHALER INH SCH (08:48)
[2023-08-27] MEDS: HEPARIN SOD 5,000 UNIT/0.5 ML VIAL SQ SCH ×2 (08:49→21:43)
[2023-08-27] MEDS: FLUTICASONE PROPIONATE NA SPR 16 GM BTL SCH (08:49)
[2023-08-27] MEDS: POLYETHYLENE (MIRALAX) 17 GM PACK PO SCH (08:54)
[2023-08-27] MEDS: HYDROmorphone INJ 0.5 MG/0.5 ML SYR IV PRN (08:55)
[2023-08-27] MEDS: HYDROmorphone INJ 1 MG/ML SYRINGE IV PRN ×3 (10:40→21:25)
[2023-08-27] MEDS ORDERED: MICONAZOLE NITRATE POWDER 85 GM EXT PRN (11:17)
[2023-08-27] MEDS: ALBUT/IPRATROP 3MG/0.5MG NEB 3 ML VIAL NEB PRN (13:39)
[2023-08-27] MEDS ORDERED: POTASSIUM CHLORIDE CRTAB 20 MEQ TABCR PO ONE (14:00)
--- NOTE | 2023-08-27 17:05 | Billing Data ---
Date of Service August 27, 2023 Coding Level of Care Code 11340 SUB INP/OBS CARE
[2023-08-27] MEDS: SIMVASTATIN 40 MG TAB PO SCH (21:43)
[2023-08-27] MEDS: DOCUSATE SODIUM/SENNA 50/8.6MG TAB PO SCH (21:54)
[2023-08-28] MEDS: HYDROmorphone INJ 1 MG/ML SYRINGE IV PRN ×3 (01:13→11:28)
[2023-08-28] MEDS: ACETAMINOPHEN 500 MG TAB PO SCH ×3 (06:09→20:36)
[2023-08-28] MEDS: FAMOTIDINE 20 MG TAB PO SCH (06:09)
[2023-08-28] MEDS: HYDROmorphone INJ 0.5 MG/0.5 ML SYR IV PRN ×2 (06:11→20:34)
--- NOTE | 2023-08-28 06:47 | Hospitalist Progress Note ---
Date of Service August 28, 2023 Assessment & Plan (1) Fall: Plan: Pt is a 83 yo male with a past medical history of pacemaker, HTN, HLD, GERD, CAD, COPD on 2L oxygen at night, hx Mi with stent, hx PAD with bypass, and BPH who presents to the hospital on 08/24/23 for fall. Today, PT/OT recommendating rehab. Placement pending. Ortho spine; recommended mobilization and f/u in 2-3 weeks for films. #Fall - presented after fall out of car, seems to have been a syncopal episode -Spinal imaging with an L2 compression fx with retropulsed fragments up to 3mm and a questionable T7 compression fx. However, L2 compression fx was seen on XR (08/21) which was prior to this event so likely unrelated - head CT wnl, chest CT no posttraumatic abnormalities -pain control: tylenol scheduled, IV Dilaudid prn -PT/OT, awaiting recommendations -ortho spine consulted; recommend mobilization with physical therapy weightbearing as tolerated, lumbar corset, f/u 2-3 weeks for upright films #Syncope - will do orthostatics, suspect this may be at play given low BP here and use of lasix/ flomax - pacemaker interrogation ordered to see if event happened during episode - echo; EF 55-60% with no wall abnorm and mild/mod - pacemaker interrogation pending #Chest pain -reproducible, likely MSK in setting of traumatic fall and spinal fx -trops x2 neg -EKG without ST changes - lidocaine/Voltaren gel prn for MSK discomfort #Hypokalemia - today 3.1 - will repeat with 40 mEq KCl po x2 today #Consolidation on CXR -CT chest: patchy ground glass consolidation in the right upper lobe is new. No leukocytosis. Neg procal. Likely pneumonitis. Defer abx. #Pulmonary nodule -There are 2 spiculated pulmonary nodules seen in the right upper and right lower lobes which measure up to 10 mm and are unchanged from 11/18/2022. These are suspicious for neoplasms. An 8 mm irregular nodule in the right middle lobe is new from previous. - Nonemergent follow-up with pulmonology is recommended #AAA, chronic -3.6 x 3.9 cm infrarenal abdominal aortic aneurysm seen on imaging #CHF #CAD s/p PCI #PAD s/p bypass -cont. asa, metoprolol, lasix #COPD -chronically on 2L O2 qhs -cont. symbicort -duoneb prn #HTN -cont. metoprolol -he did have a drop in systolic BP following nitro administration in the ED, however, this improved with IVF. Now stable, wnl. #HLD -cont. statin #H/o convulsions #Muscle spasms -cont. carbamazepine, methocarbamol #GERD -cont. pepcid, protonix #BPH -cont. finasteride, tamsulosin #Constipation -cont. miralax DVT ppx: heparin SQ Prior to hospital stay: pt lives with significant other, used a walker to get around, completed ADLs on own Admission and Anticipated Discharge Date Admission Date: August 24, 2023 Supervising Physician Co-Signing Physician Notes I personally examined the patient and verified all daniels points of history and exam, discussed case, and agree with decision making with Dr Bryn Lorenzo sided rib pain still bothering him. seems to be struggling to grasp how weak he actually is right now. vitals noted nad heent nc at mmm breathing unlabored no accessory muscles good effort skin no rashes no pallor or icterus neuro no focal deficits. ost/msk - L sided ribs ~6th rib region high tone/tender/decreased ROM - balanced ligamentous tension - improved some in terms of ROM, if not in terms of tenderness fallafter revisiting his history multiple times, he did have a prodrome of dizziness, making dehydration/orthostasis the most likely versus simple loss of balance less likely but possible. Echo reassuring, pacer interrogation donebut after being able to revisit his history, it seems most likely to be a more simple mechanism. PT/OT eval and treat Spinal fractureslikely osteoporoticappreciate ortho/spine reassurance. PT/OT eval and treat Clotting noted on CTA as relates to right lower extremityno pain, no symptoms of claudication, and distally appears to be surprisingly neurovascularly intact DVT prophylaxisheparin subcu rib somatic dysfunction - OMT as above otherwise as above, quite weak - case management working on subacute rehab Subjective Pt is a 83 yo male with a past medical history of pacemaker, HTN, HLD, GERD, CAD, COPD on 2L oxygen at night, hx Mi with stent, hx PAD with bypass, and BPH who presents to the hospital on 08/24/23 for fall. Today, pt states he is feeling fine. He states his chest pain is no better or worse than yesterday but definitely bothers him less than when he initially came in. No SOB, fever, chills, nausea, or vomiting. No questions or acute complaints at this time. Review of Systems Review of Systems: Per HPI. Physical Exam Physical Exam: General:Alert and oriented, no acute distress, very thin male Cardio: Regular rate and rhythm, no murmur, Resp:Lungs clear to auscultation b/l, Skin: Warm, pink, dry, Psych: Mood-affect congruence. Results & Data Results & Data Vital Signs (Past 12 Hours) Vital Signs Temp Pulse Pulse Resp BP Pulse Ox O2 Del Method 08/28/23 03:10 36.8 C 79 18 152/84 H 96 Room Air 08/27/23 23:05 36.8 C 80 18 136/70 93 Room Air 08/27/23 22:00 77 08/27/23 20:06 37.0 C 86 18 129/68 92 Room Air Resident Activity Tracking Resident Involvement: Resident Care Provided Care Provided: Adult Hospital Medicine
[2023-08-28 07:56] LABS: Basophils # (auto) 0.06 K/uL (0.00-0.20); Basophils % (auto) 0.8 %; Eosinophils # (auto) 0.82 K/uL (0.00-0.50); Eosinophils % (auto) 10.8 %; Hematocrit (blood only) 29.4 % (42.0-52.0); Immature Granulocytes # (auto) 0.04 K/uL (0.01-0.20); Immature Granulocytes % (auto) 0.5 %; Lymphocytes # (auto) 1.89 K/uL (1.20-3.40); Lymphocytes % (auto) 24.9 %; Mean Corpuscular Hemoglobin 33.1 pg (25.0-34.0); Mean Corpuscular Volume 97.4 fL (80.0-100.0); Mean Platelet Volume 10.8 fL (9.4-12.4); Monocytes % (auto) 9.2 %; Neutrophils # (auto) 4.07 K/uL (1.40-6.50); Neutrophils % (auto) 53.8 %; Platelet Count 229 K/uL (130-400); RDW Coefficient of Variation 14.4 % (11.5-14.5); RDW Standard Deviation 51.5 fL (36.4-46.3); Red Blood Count 3.02 M/uL (4.70-6.10); White Blood Count 7.58 K/ul (4.8-10.8)
[2023-08-28 08:13] LABS: Albumin Globulin Ratio 1.1 (0.9-2); Albumin Level 3.1 gm/dl (3.4-5.0); BUN Creatinine Ratio 39.1 (10-20); Bilirubin,Total 0.4 mg/dl (0.2-1.0); Calcium 8.4 mg/dl (8.6-10.3); Creatinine Clr Calc Pharmacy 51.1 ml/min; Est GFR (Non-African American) 87.2 ml/min; Globulin 2.9 gm/dl (2.5-4.0)
[2023-08-28] MEDS: FINASTERIDE 5 MG TAB PO SCH (09:56)
[2023-08-28] MEDS: TAMSULOSIN HCL 0.4 MG CAP PO SCH (09:56)
[2023-08-28] MEDS: LIDOCAINE 5% 1 PATCH TD SCH (09:56)
[2023-08-28] MEDS: ASPIRIN 81 MG ECTAB PO SCH (09:57)
[2023-08-28] MEDS: METHOCARBAMOL 750 MG TABLET PO SCH ×3 (09:57→20:31)
[2023-08-28] MEDS: carBAMazepine 200 MG TABLET PO SCH ×3 (09:57→20:32)
[2023-08-28] MEDS: METOPROLOL SUCC 25MG EXT REL TAB PO SCH (09:57)
[2023-08-28] MEDS: PANTOprazole 40 MG TAB PO SCH ×2 (09:57→20:31)
[2023-08-28] MEDS: HEPARIN SOD 5,000 UNIT/0.5 ML VIAL SQ SCH ×2 (09:58→20:32)
[2023-08-28] MEDS: FLUTICASONE/VILANTEROL 100/25MCG 14 PUFFS/INHALER INH SCH (09:58)
[2023-08-28] MEDS: FLUTICASONE PROPIONATE NA SPR 16 GM BTL SCH (09:58)
[2023-08-28] MEDS: FUROSEMIDE 20 MG TAB PO SCH (09:58)
[2023-08-28] MEDS: POLYETHYLENE (MIRALAX) 17 GM PACK PO SCH (10:16)
--- NOTE | 2023-08-28 15:41 | Hospitalist Progress Note ---
Date of Service August 28, 2023 Assessment & Plan Admission and Anticipated Discharge Date Admission Date: August 24, 2023 Results & Data Results & Data Vital Signs (Past 12 Hours) Vital Signs Temp Pulse Pulse Pulse Resp BP Pulse Ox 08/28/23 11:23 97.7 F 92 H 18 130/74 95 08/28/23 09:10 08/28/23 08:10 97.2 F L 72 20 145/72 H 91 08/28/23 07:13 65 O2 Del Method 08/28/23 11:23 Room Air 08/28/23 09:10 Room Air 08/28/23 08:10 Room Air 08/28/23 07:13 PG Care Time/CCT Total # of Minutes Spent Total Time Spent with Patient: Total time spent is greater than 50% in coordination of care (as documented) at patient's floor/unit and/or counseling patient: Coding Level of Care Code None CPT Codes Musculoskeletal - Musculoskeletal: 91686 [address] Jaime Tr 1-2 Body regions ([id number])
--- NOTE | 2023-08-28 15:41 | Billing Data ---
Date of Service August 28, 2023 Coding Level of Care Code 95814 SUB INP/OBS CARE
[2023-08-28] MEDS: DICLOFENAC SOD 1% GEL 100 GM TUBE EXT PRN (20:33)
[2023-08-28] MEDS: SIMVASTATIN 40 MG TAB PO SCH (20:34)
[2023-08-28] MEDS: DOCUSATE SODIUM/SENNA 50/8.6MG TAB PO SCH (20:36)
[2023-08-29] MEDS: ACETAMINOPHEN 500 MG TAB PO SCH ×3 (05:27→20:20)
[2023-08-29] MEDS: FAMOTIDINE 20 MG TAB PO SCH (05:27)
--- NOTE | 2023-08-29 06:53 | Hospitalist Progress Note ---
Date of Service August 29, 2023 Assessment & Plan (1) Fall: Plan: Pt is a 83 yo male with a past medical history of pacemaker, HTN, HLD, GERD, CAD, COPD on 2L oxygen at night, hx Mi with stent, hx PAD with bypass, and BPH who presents to the hospital on 08/24/23 for fall. Today, PT/OT recommendating rehab; placement pending. Added 1 dose of ketorlac and mag 4 gm for muscle spasm chest pain. Otherwise continue PT/OT. Ortho spine; recommended mobilization and f/u in 2-3 weeks for films. #Fall - presented after fall out of car, seems to have been a syncopal episode -Spinal imaging with an L2 compression fx with retropulsed fragments up to 3mm and a questionable T7 compression fx. However, L2 compression fx was seen on XR (08/21) which was prior to this event so likely unrelated - head CT wnl, chest CT no posttraumatic abnormalities -pain control: tylenol scheduled, IV Dilaudid prn -PT/OT, awaiting recommendations -ortho spine consulted; recommend mobilization with physical therapy weightbearing as tolerated, lumbar corset, f/u 2-3 weeks for upright films #Syncope - will do orthostatics, suspect this may be at play given low BP here and use of lasix/ flomax - pacemaker interrogation ordered to see if event happened during episode - echo; EF 55-60% with no wall abnorm and mild/mod - pacemaker interrogation pending #Chest pain -reproducible, likely MSK in setting of traumatic fall and spinal fx -trops x2 neg -EKG without ST changes - lidocaine/Voltaren gel prn for MSK discomfort #Hypokalemia - today 3.1 - will repeat with 40 mEq KCl po x2 today #Consolidation on CXR -CT chest: patchy ground glass consolidation in the right upper lobe is new. No leukocytosis. Neg procal. Likely pneumonitis. Defer abx. #Pulmonary nodule -There are 2 spiculated pulmonary nodules seen in the right upper and right lower lobes which measure up to 10 mm and are unchanged from 11/18/2022. These are suspicious for neoplasms. An 8 mm irregular nodule in the right middle lobe is new from previous. - Nonemergent follow-up with pulmonology is recommended #AAA, chronic -3.6 x 3.9 cm infrarenal abdominal aortic aneurysm seen on imaging #CHF #CAD s/p PCI #PAD s/p bypass -cont. asa, metoprolol, lasix #COPD -chronically on 2L O2 qhs -cont. symbicort -duoneb prn #HTN -cont. metoprolol -he did have a drop in systolic BP following nitro administration in the ED, however, this improved with IVF. Now stable, wnl. #HLD -cont. statin #H/o convulsions #Muscle spasms -cont. carbamazepine, methocarbamol #GERD -cont. pepcid, protonix #BPH -cont. finasteride, tamsulosin #Constipation -cont. miralax DVT ppx: heparin SQ Prior to hospital stay: pt lives with significant other, used a walker to get around, completed ADLs on own Admission and Anticipated Discharge Date Admission Date: August 24, 2023 Supervising Physician Co-Signing Physician Notes I personally examined the patient and verified all daniels points of history and exam, discussed case, and agree with decision making with Dr Bryn Lorenzo sided rib pain still bothering him. wonders if he'll do well enough to not need rehab if ribs better. vitals noted nad heent nc at mmm breathing unlabored no accessory muscles good effort skin no rashes no pallor or icterus neuro no focal deficits. fallafter revisiting his history multiple times, he did have a prodrome of dizziness, making dehydration/orthostasis the most likely versus simple loss of balance less likely but possible. Echo reassuring, pacer interrogation donebut after being able to revisit his history, it seems most likely to be a more simple mechanism. PT/OT eval and treat Spinal fractureslikely osteoporoticappreciate ortho/spine reassurance. PT/OT eval and treat Clotting noted on CTA as relates to right lower extremityno pain, no symptoms of claudication, and distally appears to be surprisingly neurovascularly intact DVT prophylaxisheparin subcu rib somatic dysfunction - OMT done several times during his stay, held on this today. Magnesium IV, Toradol, continue Voltaren gel. otherwise as above, quite weak - case management working on subacute rehab Subjective Pt is a 83 yo male with a past medical history of pacemaker, HTN, HLD, GERD, CAD, COPD on 2L oxygen at night, hx Mi with stent, hx PAD with bypass, and BPH who presents to the hospital on 08/24/23 for fall. Today, pt states he is feeling fine. He states his chest pain feels about the same as yesterday. No acute distress. No acute questions or concerns at this time. Review of Systems Review of Systems: Per HPI. Physical Exam Physical Exam: General:Alert and oriented, no acute distress, very thin male Cardio: Regular rate and rhythm, no murmur, Resp:Lungs clear to auscultation b/l, Skin: Warm, pink, dry, Psych: Mood-affect congruence. Results & Data Results & Data Vital Signs (Past 12 Hours) Vital Signs Temp Pulse Pulse Resp BP Pulse Ox O2 Del Method 08/29/23 04:15 37.1 C 71 18 165/80 H 95 Room Air 08/28/23 23:00 71 08/28/23 22:00 37.2 C 69 20 136/70 95 Room Air 08/28/23 21:46 Room Air 08/28/23 19:00 36.9 C 76 20 158/78 H 95 Room Air Resident Activity Tracking Resident Involvement: Resident Care Provided Care Provided: Adult Hospital Medicine
[2023-08-29] MEDS: PANTOprazole 40 MG TAB PO SCH ×2 (08:33→19:40)
[2023-08-29] MEDS: carBAMazepine 200 MG TABLET PO SCH ×3 (08:33→19:40)
[2023-08-29] MEDS: FINASTERIDE 5 MG TAB PO SCH (08:34)
[2023-08-29] MEDS: ASPIRIN 81 MG ECTAB PO SCH (08:34)
[2023-08-29] MEDS: TAMSULOSIN HCL 0.4 MG CAP PO SCH (08:34)
[2023-08-29] MEDS: METHOCARBAMOL 750 MG TABLET PO SCH ×3 (08:34→19:40)
[2023-08-29] MEDS: FUROSEMIDE 20 MG TAB PO SCH (08:35)
[2023-08-29] MEDS: METOPROLOL SUCC 25MG EXT REL TAB PO SCH (08:35)
[2023-08-29] MEDS: FLUTICASONE PROPIONATE NA SPR 16 GM BTL SCH (08:36)
[2023-08-29] MEDS: FLUTICASONE/VILANTEROL 100/25MCG 14 PUFFS/INHALER INH SCH (08:36)
[2023-08-29] MEDS: POLYETHYLENE (MIRALAX) 17 GM PACK PO SCH (08:37)
[2023-08-29] MEDS: LIDOCAINE 5% 1 PATCH TD SCH (08:38)
[2023-08-29] MEDS: HEPARIN SOD 5,000 UNIT/0.5 ML VIAL SQ SCH ×2 (08:38→19:41)
[2023-08-29] MEDS: HYDROmorphone INJ 0.5 MG/0.5 ML SYR IV PRN (09:08)
[2023-08-29] MEDS: DICLOFENAC SOD 1% GEL 100 GM TUBE EXT PRN (09:43)
[2023-08-29] MEDS: ALBUT/IPRATROP 3MG/0.5MG NEB 3 ML VIAL NEB PRN (10:59)
[2023-08-29] MEDS ORDERED: KETOROLAC TROMETHAMINE 15 MG/ML VIAL IV ONE (11:27)
[2023-08-29] MEDS: MAGNESIUM SULFATE / D5W 1 GM/100 ML BAG IV SCH ×4 (11:50→18:04)
[2023-08-29 13:14] LABS: Basophils # (auto) 0.06 K/uL (0.00-0.20); Basophils % (auto) 0.7 %; Eosinophils # (auto) 0.57 K/uL (0.00-0.50); Hematocrit (blood only) 31.8 % (42.0-52.0); Hemoglobin 10.5 g/dl (14.0-18.0); Immature Granulocytes # (auto) 0.04 K/uL (0.01-0.20); Immature Granulocytes % (auto) 0.5 %; Lymphocytes # (auto) 1.31 K/uL (1.20-3.40); Mean Corpuscular Hemoglobin 32.7 pg (25.0-34.0); Mean Corpuscular Volume 99.1 fL (80.0-100.0); Mean Platelet Volume 11.1 fL (9.4-12.4); Monocytes % (auto) 7.3 %; Neutrophils # (auto) 5.59 K/uL (1.40-6.50); Neutrophils % (auto) 68.5 %; Platelet Count 261 K/uL (130-400); RDW Coefficient of Variation 14.3 % (11.5-14.5); RDW Standard Deviation 52.5 fL (36.4-46.3); Red Blood Count 3.21 M/uL (4.70-6.10); White Blood Count 8.17 K/ul (4.8-10.8)
[2023-08-29 13:19] LABS: Albumin Level 3.2 gm/dl (3.4-5.0); Bilirubin,Total 0.3 mg/dl (0.2-1.0); Calcium 8.3 mg/dl (8.6-10.3); Potassium 3.4 mmol/L (3.5-5.1)
[2023-08-29 13:25] LABS: Albumin Globulin Ratio 1.1 (0.9-2); BUN Creatinine Ratio 39.4 (10-20); Creatinine Clr Calc Pharmacy 52.9 ml/min; Est GFR (African American) 102.9 ml/min; Est GFR (Non-African American) 88.8 ml/min; Total Protein 6.2 gm/dl (6.0-8.3)
[2023-08-29] MEDS: SIMVASTATIN 40 MG TAB PO SCH (19:41)
[2023-08-29] MEDS: DOCUSATE SODIUM/SENNA 50/8.6MG TAB PO SCH (19:52)
[2023-08-29] MEDS: HYDROmorphone INJ 1 MG/ML SYRINGE IV PRN (19:52)
--- NOTE | 2023-08-29 19:57 | Billing Data ---
Date of Service August 29, 2023 Coding Level of Care Code 75340 SUB INP/OBS CARE
[2023-08-30] MEDS: ACETAMINOPHEN 500 MG TAB PO SCH ×3 (06:21→20:19)
[2023-08-30] MEDS: FAMOTIDINE 20 MG TAB PO SCH (06:22)
--- NOTE | 2023-08-30 06:55 | Hospitalist Progress Note ---
Date of Service August 30, 2023 Assessment & Plan (1) Fall: Plan: Pt is a 83 yo male with a past medical history of pacemaker, HTN, HLD, GERD, CAD, COPD on 2L oxygen at night, hx Mi with stent, hx PAD with bypass, and BPH who presents to the hospital on 08/24/23 for fall. #Fall - presented after fall out of car, seems to have been a syncopal episode -Spinal imaging with an L2 compression fx with retropulsed fragments up to 3mm and a questionable T7 compression fx. However, L2 compression fx was seen on XR (08/21) which was prior to this event so likely unrelated - head CT wnl, chest CT no posttraumatic abnormalities -pain control: tylenol scheduled, IV Dilaudid prn -updated PT/OT evaluations pending, CM following re: placement -ortho spine consulted; recommend mobilization with physical therapy weightbearing as tolerated, lumbar corset, f/u 2-3 weeks for upright films #Syncope - will do orthostatics, suspect this may be at play given low BP here and use of lasix/ flomax - pacemaker interrogation ordered to see if event happened during episode - echo; EF 55-60% with no wall abnorm and mild/mod - pacemaker interrogation pending #Chest pain -reproducible, likely MSK in setting of traumatic fall and spinal fx -trops x2 neg -EKG without ST changes - lidocaine/Voltaren gel prn for MSK discomfort - Bilateral rib XR done 08/30 negative for acute fractures #Hypokalemia - today 3.6 #Consolidation on CXR -CT chest: patchy ground glass consolidation in the right upper lobe is new. No leukocytosis. Neg procal. Likely pneumonitis. Defer abx. #Pulmonary nodule -There are 2 spiculated pulmonary nodules seen in the right upper and right lower lobes which measure up to 10 mm and are unchanged from 11/18/2022. These are suspicious for neoplasms. An 8 mm irregular nodule in the right middle lobe is new from previous. - Nonemergent follow-up with pulmonology is recommended #AAA, chronic -3.6 x 3.9 cm infrarenal abdominal aortic aneurysm seen on imaging #CHF #CAD s/p PCI #PAD s/p bypass -cont. asa, metoprolol, lasix #COPD -chronically on 2L O2 qhs -cont. symbicort -duoneb prn #HTN -cont. metoprolol -he did have a drop in systolic BP following nitro administration in the ED, however, this improved with IVF. Now stable, wnl. #HLD -cont. statin #H/o convulsions #Muscle spasms -cont. carbamazepine, methocarbamol #GERD -cont. pepcid, protonix #BPH -cont. finasteride, tamsulosin #Constipation -cont. miralax DVT ppx: heparin SQ Prior to hospital stay: pt lives with significant other, used a walker to get around, completed ADLs on own Admission and Anticipated Discharge Date Admission Date: August 24, 2023 Supervising Physician Co-Signing Physician Notes I personally examined the patient and verified all daniels points of history and exam, discussed case, and agree with decision making with Dr Adrian Lorenzo ribs still bothering him didn't really improve much - Xrays rechecked still no evidence of acute fx. vitals noted nad heent nc at mmm breathing unlabored no accessory muscles good effort skin no rashes no pallor or icterus neuro no focal deficits. fallafter revisiting his history multiple times, he did have a prodrome of dizziness, making dehydration/orthostasis the most likely versus simple loss of balance less likely but possible. Echo reassuring, pacer interrogation donebut after being able to revisit his history, it seems most likely to be a more simple mechanism. PT/OT eval and treat Spinal fractureslikely osteoporoticappreciate ortho/spine reassurance. PT/OT eval and treat, pain control Clotting noted on CTA as relates to right lower extremityno pain, no symptoms of claudication, and distally appears to be surprisingly neurovascularly intact DVT prophylaxisheparin subcu rib somatic dysfunction - OMT done several times during his stay, held on this today. fortunately no fracture on recheck. continue voltaren gel otherwise as above, quite weak - case management working on subacute rehab Subjective Pt is a 83 yo male with a past medical history of pacemaker, HTN, HLD, GERD, CAD, COPD on 2L oxygen at night, hx Mi with stent, hx PAD with bypass, and BPH who presents to the hospital on 08/24/23 for fall. Patient evaluated at bedside this morning, notes that ongoing chest pain is the primary sx of concern, notes that it has responded well to pain medications. Patient states that he will do his best to work with PT/OT today. Review of Systems Review of Systems: Per HPI. Physical Exam Physical Exam: General: Alert and oriented. No acute distress Cardiac: Regular rate and rhythm, no murmurs appreciated Respiratory: Lungs clear to auscultation bilaterally, Lung excursion limited due to pain Psych: mood-affect congruence Results & Data Results & Data Vital Signs (Past 12 Hours) Vital Signs Temp Pulse Resp BP BP Pulse Ox O2 Del Method 08/30/23 03:00 36.7 C 71 18 155/73 H 98 Room Air 08/29/23 22:57 36.8 C 73 18 142/77 H 93 Room Air 08/29/23 19:00 36.3 C L 68 20 128/62 96 Room Air Resident Activity Tracking Resident Involvement: Resident Care Provided Care Provided: Adult Hospital Medicine
[2023-08-30 07:12] LABS: Basophils # (auto) 0.05 K/uL (0.00-0.20); Basophils % (auto) 0.7 %; Eosinophils # (auto) 0.99 K/uL (0.00-0.50); Eosinophils % (auto) 13.9 %; Immature Granulocytes # (auto) 0.04 K/uL (0.01-0.20); Immature Granulocytes % (auto) 0.6 %; Lymphocytes % (auto) 23.9 %; Mean Corpuscular Hgb Conc 34.5 g/dL (32.0-36.0); Mean Corpuscular Volume 95.7 fL (80.0-100.0); Mean Platelet Volume 10.6 fL (9.4-12.4); Monocytes # (auto) 0.64 K/uL (0.11-0.59); Neutrophils % (auto) 51.9 %; Platelet Count 258 K/uL (130-400); RDW Coefficient of Variation 14.5 % (11.5-14.5); RDW Standard Deviation 50.6 fL (36.4-46.3); Red Blood Count 3.03 M/uL (4.70-6.10); White Blood Count 7.12 K/ul (4.8-10.8)
[2023-08-30 07:21] LABS: Albumin Globulin Ratio 1.2 (0.9-2); Bilirubin,Total 0.3 mg/dl (0.2-1.0); Calcium 8.1 mg/dl (8.6-10.3); Creatinine Clr Calc Pharmacy 54.9 ml/min; Est GFR (African American) 103.5 ml/min; Est GFR (Non-African American) 89.3 ml/min; Globulin 2.6 gm/dl (2.5-4.0); Potassium 3.6 mmol/L (3.5-5.1); Total Protein 5.6 gm/dl (6.0-8.3)
[2023-08-30] MEDS: HYDROmorphone INJ 1 MG/ML SYRINGE IV PRN ×2 (09:05→23:28)
[2023-08-30] MEDS: METOPROLOL SUCC 25MG EXT REL TAB PO SCH (09:37)
[2023-08-30] MEDS: TAMSULOSIN HCL 0.4 MG CAP PO SCH (09:37)
[2023-08-30] MEDS: METHOCARBAMOL 750 MG TABLET PO SCH ×3 (09:37→20:16)
[2023-08-30] MEDS: FUROSEMIDE 20 MG TAB PO SCH (09:37)
[2023-08-30] MEDS: ASPIRIN 81 MG ECTAB PO SCH (09:37)
[2023-08-30] MEDS: FINASTERIDE 5 MG TAB PO SCH (09:37)
[2023-08-30] MEDS: carBAMazepine 200 MG TABLET PO SCH ×3 (09:38→20:16)
[2023-08-30] MEDS: HEPARIN SOD 5,000 UNIT/0.5 ML VIAL SQ SCH ×2 (09:39→20:17)
[2023-08-30] MEDS: PANTOprazole 40 MG TAB PO SCH ×2 (09:39→20:17)
[2023-08-30] MEDS: POLYETHYLENE (MIRALAX) 17 GM PACK PO SCH (09:39)
[2023-08-30] MEDS: FLUTICASONE/VILANTEROL 100/25MCG 14 PUFFS/INHALER INH SCH (09:39)
[2023-08-30] MEDS: FLUTICASONE PROPIONATE NA SPR 16 GM BTL SCH (09:39)
[2023-08-30] MEDS: LIDOCAINE 5% 1 PATCH TD SCH (12:34)
--- NOTE | 2023-08-30 12:35 | XRay Report ---
XR ribs BI min 4V w CXR1V CLINICAL HISTORY: r/o rib fracture COMPARISON: Chest radiograph November 18, 2022. Chest CT August 24, 2023. FINDINGS: No pneumothorax or pleural effusion is present. Right upper lobe groundglass opacity on CT of August 24, 2023 not well-visualized by radiography. There are several old bilateral rib fractur es. No acute rib fractures are identified. Left subclavian pacer is in place. Elevation/eventration o f the right hemidiaphragm is unchanged. IMPRESSION: No pneumothorax. No acute rib fractures identified. ACT 112: Negative or not required by law. Electronically signed by: Emory Camargo M.D. 08/30/2023 12:33 PM
[2023-08-30] MEDS: ALBUT/IPRATROP 3MG/0.5MG NEB 3 ML VIAL NEB PRN (13:27)
[2023-08-30] MEDS: HYDROmorphone INJ 0.5 MG/0.5 ML SYR IV PRN ×2 (14:07→18:42)
--- NOTE | 2023-08-30 16:41 | Billing Data ---
Date of Service August 30, 2023 Coding Level of Care Code 70279 SUB INP/OBS CARE
[2023-08-30] MEDS: SIMVASTATIN 40 MG TAB PO SCH (20:17)
[2023-08-30] MEDS: DOCUSATE SODIUM/SENNA 50/8.6MG TAB PO SCH (20:20)
[2023-08-31] MEDS: ACETAMINOPHEN 500 MG TAB PO SCH ×3 (05:37→21:17)
[2023-08-31] MEDS: FAMOTIDINE 20 MG TAB PO SCH (05:44)
--- NOTE | 2023-08-31 07:01 | Hospitalist Progress Note ---
Date of Service August 31, 2023 Assessment & Plan (1) Fall: Plan: Pt is a 83 yo male with a past medical history of pacemaker, HTN, HLD, GERD, CAD, COPD on 2L oxygen at night, hx Mi with stent, hx PAD with bypass, and BPH who presents to the hospital on 08/24/23 for fall. No acute changes today, continue pain management. PT/OT evaluation and treatment. CM following, placement pending. #Fall - presented after fall out of car, seems to have been a syncopal episode -Spinal imaging with an L2 compression fx with retropulsed fragments up to 3mm and a questionable T7 compression fx. However, L2 compression fx was seen on XR (08/21) which was prior to this event so likely unrelated - head CT wnl, chest CT no posttraumatic abnormalities -pain control: tylenol scheduled, IV Dilaudid prn -updated PT/OT evaluations pending, CM following re: placement -ortho spine consulted; recommend mobilization with physical therapy weightbearing as tolerated, lumbar corset, f/u 2-3 weeks for upright films #Syncope - will do orthostatics, suspect this may be at play given low BP here and use of lasix/ flomax - pacemaker interrogation done. - echo; EF 55-60% with no wall abnorm and mild/mod #Chest pain -reproducible, likely MSK in setting of traumatic fall and spinal fx -trops x2 neg -EKG without ST changes - lidocaine/Voltaren gel prn for MSK discomfort - Bilateral rib XR done 08/30 negative for acute fractures #Hypokalemia - today 3.6 #Consolidation on CXR -CT chest: patchy ground glass consolidation in the right upper lobe is new. No leukocytosis. Neg procal. Likely pneumonitis. Defer abx. #Pulmonary nodule -There are 2 spiculated pulmonary nodules seen in the right upper and right lower lobes which measure up to 10 mm and are unchanged from 11/18/2022. These are suspicious for neoplasms. An 8 mm irregular nodule in the right middle lobe is new from previous. - Nonemergent follow-up with pulmonology is recommended #AAA, chronic -3.6 x 3.9 cm infrarenal abdominal aortic aneurysm seen on imaging #CHF #CAD s/p PCI #PAD s/p bypass -cont. asa, metoprolol, lasix #COPD -chronically on 2L O2 qhs -cont. symbicort -duoneb prn #HTN -cont. metoprolol -he did have a drop in systolic BP following nitro administration in the ED, however, this improved with IVF. Now stable, wnl. #HLD -cont. statin #H/o convulsions #Muscle spasms -cont. carbamazepine, methocarbamol #GERD -cont. pepcid, protonix #BPH -cont. finasteride, tamsulosin #Constipation -cont. miralax DVT ppx: heparin SQ Prior to hospital stay: pt lives with significant other, used a walker to get around, completed ADLs on own Admission and Anticipated Discharge Date Admission Date: August 24, 2023 Supervising Physician Co-Signing Physician Notes I personally examined the patient and verified all daniels points of history and exam, discussed case, and agree with decision making with Dr Campbell Still having rib pain. vitals noted nad heent nc at mmm breathing unlabored no accessory muscles good effort skin no rashes no pallor or icterus neuro no focal deficits. fallafter revisiting his history multiple times, he did have a prodrome of dizziness, making dehydration/orthostasis the most likely versus simple loss of balance less likely but possible. Echo reassuring, pacer interrogation donebut after being able to revisit his history, it seems most likely to be a more simple mechanism. PT/OT eval and treatReally appears to need some form of rehab Spinal fractureslikely osteoporoticappreciate ortho/spine reassurance. PT/OT eval and treat, pain control Clotting noted on CTA as relates to right lower extremityno pain, no symptoms of claudication, and distally appears to be surprisingly neurovascularly intact DVT prophylaxisheparin subcu rib somatic dysfunction - OMT done several times during his stay. fortunately no fracture on recheck. continue voltaren gel, Toradol with caution otherwise as above, quite weak - case management working on subacute rehab Subjective Pt is a 83 yo male with a past medical history of pacemaker, HTN, HLD, GERD, CAD, COPD on 2L oxygen at night, hx Mi with stent, hx PAD with bypass, and BPH who presents to the hospital on 08/24/23 for fall. Patient evaluated at bedside this morning, notes that chest wall pain continues to be sx of concern, though it has responded well to pain medications. Patient states that he will do his best to work with PT/OT, continues to be amenable to plan for placement. Review of Systems Review of Systems: Per HPI. Physical Exam Physical Exam: General: Alert and oriented. No acute distress Cardiac: Regular rate and rhythm, no murmurs appreciated Respiratory: Lungs clear to auscultation bilaterally, Lung excursion limited due to pain Psych: mood-affect congruence Results & Data Results & Data Vital Signs (Past 12 Hours) Vital Signs Temp Pulse Pulse Resp BP Pulse Ox O2 Del Method 08/31/23 02:50 37.1 C 68 16 145/63 H 97 Room Air 08/31/23 00:06 70 08/30/23 23:16 37.1 C 73 16 130/67 95 Room Air 08/30/23 19:43 36.7 C 65 16 120/76 95 Room Air Resident Activity Tracking Resident Involvement: Resident Care Provided Care Provided: Adult Hospital Medicine
[2023-08-31 07:20] LABS: Basophils # (auto) 0.03 K/uL (0.00-0.20); Basophils % (auto) 0.4 %; Eosinophils # (auto) 0.93 K/uL (0.00-0.50); Eosinophils % (auto) 13.4 %; Hematocrit (blood only) 30.4 % (42.0-52.0); Hemoglobin 10.1 g/dl (14.0-18.0); Immature Granulocytes # (auto) 0.04 K/uL (0.01-0.20); Immature Granulocytes % (auto) 0.6 %; Lymphocytes # (auto) 1.46 K/uL (1.20-3.40); Mean Corpuscular Hemoglobin 32.4 pg (25.0-34.0); Mean Corpuscular Hgb Conc 33.2 g/dL (32.0-36.0); Mean Corpuscular Volume 97.4 fL (80.0-100.0); Mean Platelet Volume 10.6 fL (9.4-12.4); Monocytes # (auto) 0.59 K/uL (0.11-0.59); Monocytes % (auto) 8.5 %; Neutrophils # (auto) 3.91 K/uL (1.40-6.50); Neutrophils % (auto) 56.1 %; Platelet Count 269 K/uL (130-400); RDW Coefficient of Variation 14.3 % (11.5-14.5); RDW Standard Deviation 51.2 fL (36.4-46.3); Red Blood Count 3.12 M/uL (4.70-6.10); White Blood Count 6.96 K/ul (4.8-10.8)
[2023-08-31 07:38] LABS: Albumin Globulin Ratio 1.2 (0.9-2); BUN Creatinine Ratio 41.7 (10-20); Bilirubin,Total 0.3 mg/dl (0.2-1.0); Calcium 8.2 mg/dl (8.6-10.3); Creatinine Clr Calc Pharmacy 56.6 ml/min; Est GFR (Non-African American) 92.3 ml/min; Globulin 2.6 gm/dl (2.5-4.0); Potassium 3.6 mmol/L (3.5-5.1); Total Protein 5.6 gm/dl (6.0-8.3)
[2023-08-31] MEDS: HYDROmorphone INJ 0.5 MG/0.5 ML SYR IV PRN (08:43)
[2023-08-31] MEDS: ASPIRIN 81 MG ECTAB PO SCH (08:45)
[2023-08-31] MEDS: METOPROLOL SUCC 25MG EXT REL TAB PO SCH (08:45)
[2023-08-31] MEDS: HEPARIN SOD 5,000 UNIT/0.5 ML VIAL SQ SCH ×2 (08:46→20:28)
[2023-08-31] MEDS: METHOCARBAMOL 750 MG TABLET PO SCH ×3 (08:46→20:29)
[2023-08-31] MEDS: carBAMazepine 200 MG TABLET PO SCH ×3 (08:46→20:28)
[2023-08-31] MEDS: FINASTERIDE 5 MG TAB PO SCH (08:46)
[2023-08-31] MEDS: FUROSEMIDE 20 MG TAB PO SCH (08:46)
[2023-08-31] MEDS: TAMSULOSIN HCL 0.4 MG CAP PO SCH (08:46)
[2023-08-31] MEDS: LIDOCAINE 5% 1 PATCH TD SCH (08:46)
[2023-08-31] MEDS: FLUTICASONE/VILANTEROL 100/25MCG 14 PUFFS/INHALER INH SCH (08:47)
[2023-08-31] MEDS: PANTOprazole 40 MG TAB PO SCH ×2 (08:47→20:29)
[2023-08-31] MEDS: FLUTICASONE PROPIONATE NA SPR 16 GM BTL SCH (08:47)
[2023-08-31] MEDS: POLYETHYLENE (MIRALAX) 17 GM PACK PO SCH (08:48)
[2023-08-31] MEDS: KETOROLAC TROMETHAMINE 15 MG/ML VIAL IV PRN (14:59)
--- NOTE | 2023-08-31 19:40 | Billing Data ---
Date of Service August 31, 2023 Coding Level of Care Code 13055 SUB INP/OBS CARE
[2023-08-31] MEDS: DOCUSATE SODIUM/SENNA 50/8.6MG TAB PO SCH (20:28)
[2023-08-31] MEDS: SIMVASTATIN 40 MG TAB PO SCH (20:29)
[2023-09-01] MEDS: FAMOTIDINE 20 MG TAB PO SCH (05:30)
[2023-09-01] MEDS: ACETAMINOPHEN 500 MG TAB PO SCH ×3 (05:31→21:48)
--- NOTE | 2023-09-01 06:45 | Hospitalist Progress Note ---
Date of Service September 01, 2023 Assessment & Plan (1) Fall: Plan: Pt is a 83 yo male with a past medical history of pacemaker, HTN, HLD, GERD, CAD, COPD on 2L oxygen at night, hx Mi with stent, hx PAD with bypass, and BPH who presents to the hospital on 08/24/23 for fall. Spine compression fracture - presented after fall out of car, seems to have been a syncopal episode -Spinal imaging with an L2 compression fx with retropulsed fragments up to 3mm and a questionable T7 compression fx. - head CT wnl, chest CT no posttraumatic abnormalities -ortho spine consulted; recommend mobilization with physical therapy weightbearing as tolerated, lumbar corset, f/u 2-3 weeks for upright films -pain control: Tylenol scheduled, IV Dilaudid prn -PT daily, CM following : waiting placement Syncope -suspect this may be at play given low BP here and use of lasix/ flomax - pacemaker interrogation done. - echo; EF 55-60% with no wall abnormal and mild/mod Chest pain -reproducible, likely MSK in setting of traumatic fall and spinal fx -trops x2 neg -EKG without ST changes - lidocaine/Voltaren gel prn for MSK discomfort Hypokalemia - today 3.6, 20 meq replaced today Follow AM labs Consolidation on CXR -CT chest: patchy ground glass consolidation in the right upper lobe is new. No leukocytosis. Neg procal. - Likely pneumonitis. Defer abx. Pulmonary nodule -There are 2 spiculated pulmonary nodules seen in the right upper and right lower lobes which measure up to 10 mm and are unchanged from 11/18/2022. These are suspicious for neoplasms. An 8 mm irregular nodule in the right middle lobe is new from previous. - Nonemergent follow-up with pulmonology is recommended AAA, chronic -3.6 x 3.9 cm infrarenal abdominal aortic aneurysm seen on imaging #CHF #CAD s/p PCI #PAD s/p bypass -cont. asa, metoprolol, lasix #COPD -chronically on 2L O2 qhs -cont. symbicort -duoneb prn #HTN -cont. metoprolol -he did have a drop in systolic BP following nitro administration in the ED, however, this improved with IVF. Now stable, wnl. #HLD -cont. statin #H/o convulsions #Muscle spasms -cont. carbamazepine, methocarbamol #GERD -cont. pepcid, protonix #BPH -cont. finasteride, tamsulosin #Constipation -cont. miralax DVT ppx: heparin SQ Code: full Diet: HH Diposition: pending placement for rehab, CM following Prior to hospital stay: pt lives with significant other, used a walker to get around, completed ADLs on own Admission and Anticipated Discharge Date Admission Date: August 24, 2023 Supervising Physician Co-Signing Physician Notes Attending Physician Supervision Note: I independently interviewed and examined the patient and verified the daniels history and physical, reviewed labs and image studies and agree with findings and care plan noted above. c/o right heel pain. vitals noted nad heent nc at mmm breathing unlabored no accessory muscles good effort skin no rashes no pallor or icterus neuro no focal deficits. fall - existing underlying gait dysfunction - uses cane. significant muscle wasting in LE d/t PAD with presyncopal symptoms likely contributed. PT/OT. -no further rib pain reported. continue voltaren gel, Toradol with caution presyncope prodrome of dizziness sec to ? dehydration/orthostasis. Echo reassuring, pacer interrogation done. no further concerns. Spinal fractureslikely osteoporotic no surgical intervention - per ortho. 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 Left Heel pain - decubitus changes noted on exam. intact neurovascularly. move the foot to avoid pressure. Pul nodule - outpatient f/u DVT prophylaxisheparin sq otherwise as above, Subjective Pt is a 83 yo male with a past medical history of pacemaker, HTN, HLD, GERD, CAD, COPD on 2L oxygen at night, hx Mi with stent, hx PAD with bypass, and BPH who presents to the hospital on 08/24/23 for fall. Patient evaluated at bedside this AM, he notes the pain is still present 12/02, responding well to pain medication. Waiting for placement for rehab. Doing PT daily Review of Systems Review of Systems: as per HPi Physical Exam Constitutional: WD/WN, vitals as above Respiratory: normal respiratory effort, lungs clear to auscultation Cardiovascular: RRR, no murmur, no edema Gastrointestinal (Abdomen): normal bowel sounds, soft, nontender, no hepatosplenomegaly Musculoskeletal: no cyanosis or clubbing, extremities motor strength 5/5 Results & Data Results & Data Vital Signs (Past 12 Hours) Vital Signs Temp Pulse Pulse Resp BP Pulse Ox O2 Del Method 09/01/23 02:57 36.9 C 73 18 155/78 H 95 Room Air 09/01/23 00:34 79 08/31/23 23:02 36.8 C 78 18 107/67 96 Room Air 08/31/23 19:28 Room Air 08/31/23 19:26 36.7 C 75 16 127/67 96 Room Air Resident Activity Tracking Resident Involvement: Resident Care Provided Care Provided: Adult Hospital Medicine
[2023-09-01 06:58] LABS: Basophils # (auto) 0.05 K/uL (0.00-0.20); Basophils % (auto) 0.6 %; Eosinophils # (auto) 0.94 K/uL (0.00-0.50); Eosinophils % (auto) 12.1 %; Hematocrit (blood only) 31.7 % (42.0-52.0); Hemoglobin 10.6 g/dl (14.0-18.0); Immature Granulocytes # (auto) 0.07 K/uL (0.01-0.20); Immature Granulocytes % (auto) 0.9 %; Lymphocytes % (auto) 18.1 %; Mean Corpuscular Hemoglobin 33.1 pg (25.0-34.0); Mean Corpuscular Hgb Conc 33.4 g/dL (32.0-36.0); Mean Corpuscular Volume 99.1 fL (80.0-100.0); Mean Platelet Volume 10.6 fL (9.4-12.4); Monocytes # (auto) 0.67 K/uL (0.11-0.59); Monocytes % (auto) 8.6 %; Neutrophils # (auto) 4.62 K/uL (1.40-6.50); Neutrophils % (auto) 59.7 %; Platelet Count 318 K/uL (130-400); RDW Coefficient of Variation 14.6 % (11.5-14.5); RDW Standard Deviation 53.2 fL (36.4-46.3); White Blood Count 7.75 K/ul (4.8-10.8)
[2023-09-01 07:31] LABS: Albumin Globulin Ratio 1.1 (0.9-2); Albumin Level 3.1 gm/dl (3.4-5.0); BUN Creatinine Ratio 35.5 (10-20); Bilirubin,Total 0.3 mg/dl (0.2-1.0); Calcium 8.4 mg/dl (8.6-10.3); Creatinine Clr Calc Pharmacy 53.9 ml/min; Est GFR (African American) 105.6 ml/min; Est GFR (Non-African American) 91.1 ml/min; Globulin 2.8 gm/dl (2.5-4.0); Potassium 3.4 mmol/L (3.5-5.1); Total Protein 5.9 gm/dl (6.0-8.3)
[2023-09-01] MEDS: HYDROmorphone INJ 1 MG/ML SYRINGE IV PRN ×3 (07:34→23:42)
[2023-09-01] MEDS: ASPIRIN 81 MG ECTAB PO SCH (08:40)
[2023-09-01] MEDS: METOPROLOL SUCC 25MG EXT REL TAB PO SCH (08:41)
[2023-09-01] MEDS: PANTOprazole 40 MG TAB PO SCH ×2 (08:42→21:45)
[2023-09-01] MEDS: METHOCARBAMOL 750 MG TABLET PO SCH ×3 (08:42→21:46)
[2023-09-01] MEDS: FINASTERIDE 5 MG TAB PO SCH (08:42)
[2023-09-01] MEDS: TAMSULOSIN HCL 0.4 MG CAP PO SCH (08:42)
[2023-09-01] MEDS: FUROSEMIDE 20 MG TAB PO SCH (08:42)
[2023-09-01] MEDS: FLUTICASONE/VILANTEROL 100/25MCG 14 PUFFS/INHALER INH SCH (08:43)
[2023-09-01] MEDS: FLUTICASONE PROPIONATE NA SPR 16 GM BTL SCH (08:43)
[2023-09-01] MEDS: carBAMazepine 200 MG TABLET PO SCH ×3 (08:43→21:45)
[2023-09-01] MEDS: HEPARIN SOD 5,000 UNIT/0.5 ML VIAL SQ SCH ×2 (08:44→21:46)
[2023-09-01] MEDS: LIDOCAINE 5% 1 PATCH TD SCH (08:45)
[2023-09-01] MEDS ORDERED: POTASSIUM CHLORIDE CRTAB 20 MEQ TABCR PO STA (10:18)
[2023-09-01] MEDS: POLYETHYLENE (MIRALAX) 17 GM PACK PO SCH (10:28)
[2023-09-01] MEDS: DICLOFENAC SOD 1% GEL 100 GM TUBE EXT PRN (11:06)
[2023-09-01] MEDS: ALBUT/IPRATROP 3MG/0.5MG NEB 3 ML VIAL NEB PRN (13:21)
[2023-09-01] MEDS: SIMVASTATIN 40 MG TAB PO SCH (21:45)
[2023-09-01] MEDS: DOCUSATE SODIUM/SENNA 50/8.6MG TAB PO SCH (21:46)
[2023-09-01] MEDS: HYDROmorphone INJ 0.5 MG/0.5 ML SYR IV PRN (22:55)
[2023-09-02] MEDS: KETOROLAC TROMETHAMINE 15 MG/ML VIAL IV PRN ×3 (01:31→15:50)
[2023-09-02] MEDS: HYDROmorphone INJ 0.5 MG/0.5 ML SYR IV PRN ×2 (06:16→11:35)
[2023-09-02] MEDS: FAMOTIDINE 20 MG TAB PO SCH (06:16)
[2023-09-02] MEDS: ACETAMINOPHEN 500 MG TAB PO SCH ×3 (06:16→21:10)
--- NOTE | 2023-09-02 07:34 | Hospitalist Progress Note ---
Date of Service September 02, 2023 Assessment & Plan (1) Fall: Plan: Pt is a 83 yo male with a past medical history of pacemaker, HTN, HLD, GERD, CAD, COPD on 2L oxygen at night, hx Mi with stent, hx PAD with bypass, and BPH who presents to the hospital on 08/24/23 for fall. Spinal compression fracture - presented after fall out of car, seems to have been a presyncopal episode/ gait disturbance -Spinal imaging with an L2 compression fx with retropulsed fragments up to 3mm and a questionable T7 compression fx. - head CT wnl, chest CT no posttraumatic abnormalities -ortho spine consulted; recommend mobilization with physical therapy weightbearing as tolerated, lumbar corset, f/u 2-3 weeks for upright films -pain control: Tylenol scheduled, IV Dilaudid prn -PT daily, CM following: [facility] called today and refers they would prefer HH. presyncope -suspect this may be at play given low BP here and use of lasix/ flomax - pacemaker interrogation done. 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 No leukocytosis. Neg procal. - Likely pneumonitis. Defer abx. Pulmonary nodule -There are 2 spiculated pulmonary nodules seen in the right upper and right lower lobes which measure up to 10 mm and are unchanged from 11/18/2022. These are suspicious for neoplasms. An 8 mm irregular nodule in the right middle lobe is new from previous. - Nonemergent follow-up with pulmonology is recommended AAA, chronic -3.6 x 3.9 cm infrarenal abdominal aortic aneurysm seen on imaging #CHF #CAD s/p PCI #PAD s/p bypass -cont. asa, metoprolol, lasix #COPD -chronically on 2L O2 qhs -cont. symbicort -duoneb prn #HTN -cont. metoprolol -he did have a drop in systolic BP following nitro administration in the ED, however, this improved with IVF. Now stable, wnl. #HLD -cont. statin #H/o convulsions #Muscle spasms -cont. carbamazepine, methocarbamol #GERD -cont. pepcid, protonix #BPH -cont. finasteride, tamsulosin #Constipation -cont. miralax DVT ppx: heparin SQ Code: full Diet: HH Diposition: pending placement for rehab, CM following Prior to hospital stay: pt lives with significant other, used a walker to get around, completed ADLs on own Admission and Anticipated Discharge Date Admission Date: August 24, 2023 Supervising Physician Co-Signing Physician Notes Attending Physician Supervision Note: I independently interviewed and examined the patient and verified the daniels history and physical, reviewed labs and image studies and agree with findings and care plan noted above. c/o chest wall pain - current med regimen helping. vitals noted nad heent nc at mmm breathing unlabored no accessory muscles good effort skin no rashes no pallor or icterus neuro no focal deficits. fall - existing underlying gait dysfunction - uses cane. significant muscle wasting in LE d/t PAD with presyncopal symptoms likely contributed. PT/OT. -no further rib pain reported. continue voltaren gel, Toradol with caution presyncope prodrome of dizziness sec to ? dehydration/orthostasis - on flomax/lasix. Echo reassuring, pacer interrogation done. no further concerns. Spinal fractureslikely osteoporotic no surgical intervention - per ortho. 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 -discussed with vascular surgery - recommending starting eliquis - will review with patient risk and benefit especially in setting of recent fall. Pul nodule - outpatient f/u DVT prophylaxisheparin sq otherwise as above, Subjective Pt is a 83 yo male with a past medical history of pacemaker, HTN, HLD, GERD, CAD, COPD on 2L oxygen at night, hx Mi with stent, hx PAD with bypass, and BPH who presents to the hospital on 08/24/23 for fall. Patient evaluated at bedside this AM, he notes the pain is still, responding well to pain medication. Waiting for placement for rehab. Doing PT daily Review of Systems Review of Systems: as per HPi Physical Exam Constitutional: WD/WN, vitals as above Respiratory: normal respiratory effort, lungs clear to auscultation Cardiovascular: RRR, no murmur, no edema Gastrointestinal (Abdomen): normal bowel sounds, soft, nontender, no hepatosplenomegaly Musculoskeletal: no cyanosis or clubbing, extremities motor strength 5/5 Results & Data Results & Data Vital Signs (Past 12 Hours) Vital Signs Temp Pulse Pulse Resp BP Pulse Ox O2 Del Method 09/02/23 07:00 66 09/02/23 04:00 36.8 C 72 18 156/72 H 95 Room Air 09/01/23 22:00 36.9 C 75 18 143/66 H 96 Room Air 09/01/23 21:59 73 Resident Activity Tracking Resident Involvement: Resident Care Provided Care Provided: Adult Hospital Medicine
[2023-09-02 08:06] LABS: Basophils # (auto) 0.05 K/uL (0.00-0.20); Basophils % (auto) 0.7 %; Eosinophils # (auto) 1.12 K/uL (0.00-0.50); Eosinophils % (auto) 14.7 %; Hematocrit (blood only) 30.4 % (42.0-52.0); Hemoglobin 9.9 g/dl (14.0-18.0); Immature Granulocytes # (auto) 0.06 K/uL (0.01-0.20); Immature Granulocytes % (auto) 0.8 %; Lymphocytes # (auto) 1.41 K/uL (1.20-3.40); Lymphocytes % (auto) 18.5 %; Mean Corpuscular Hemoglobin 32.7 pg (25.0-34.0); Mean Corpuscular Hgb Conc 32.6 g/dL (32.0-36.0); Mean Corpuscular Volume 100.3 fL (80.0-100.0); Mean Platelet Volume 10.1 fL (9.4-12.4); Monocytes # (auto) 0.73 K/uL (0.11-0.59); Monocytes % (auto) 9.6 %; Neutrophils # (auto) 4.26 K/uL (1.40-6.50); Neutrophils % (auto) 55.7 %; Platelet Count 352 K/uL (130-400); RDW Standard Deviation 55.4 fL (36.4-46.3); Red Blood Count 3.03 M/uL (4.70-6.10); White Blood Count 7.63 K/ul (4.8-10.8)
[2023-09-02 08:25] LABS: Albumin Globulin Ratio 1.2 (0.9-2); Albumin Level 3.1 gm/dl (3.4-5.0); BUN Creatinine Ratio 33.3 (10-20); Bilirubin,Total 0.3 mg/dl (0.2-1.0); Calcium 8.5 mg/dl (8.6-10.3); Creatinine Clr Calc Pharmacy 48.3 ml/min; Est GFR (African American) 99.3 ml/min; Est GFR (Non-African American) 85.7 ml/min; Globulin 2.6 gm/dl (2.5-4.0); Potassium 3.8 mmol/L (3.5-5.1); Total Protein 5.7 gm/dl (6.0-8.3)
[2023-09-02] MEDS: TAMSULOSIN HCL 0.4 MG CAP PO SCH (09:03)
[2023-09-02] MEDS: METHOCARBAMOL 750 MG TABLET PO SCH ×3 (09:03→21:11)
[2023-09-02] MEDS: FLUTICASONE PROPIONATE NA SPR 16 GM BTL SCH (09:03)
[2023-09-02] MEDS: FUROSEMIDE 20 MG TAB PO SCH (09:04)
[2023-09-02] MEDS: PANTOprazole 40 MG TAB PO SCH ×2 (09:04→21:11)
[2023-09-02] MEDS: ASPIRIN 81 MG ECTAB PO SCH (09:04)
[2023-09-02] MEDS: carBAMazepine 200 MG TABLET PO SCH ×3 (09:04→21:10)
[2023-09-02] MEDS: FLUTICASONE/VILANTEROL 100/25MCG 14 PUFFS/INHALER INH SCH (09:04)
[2023-09-02] MEDS: LIDOCAINE 5% 1 PATCH TD SCH (09:05)
[2023-09-02] MEDS: METOPROLOL SUCC 25MG EXT REL TAB PO SCH (09:05)
[2023-09-02] MEDS: FINASTERIDE 5 MG TAB PO SCH (09:05)
[2023-09-02] MEDS: POLYETHYLENE (MIRALAX) 17 GM PACK PO SCH (09:05)
[2023-09-02] MEDS: HEPARIN SOD 5,000 UNIT/0.5 ML VIAL SQ SCH ×2 (09:05→21:11)
[2023-09-02] MEDS: SIMVASTATIN 40 MG TAB PO SCH (21:11)
[2023-09-02] MEDS: DOCUSATE SODIUM/SENNA 50/8.6MG TAB PO SCH (21:12)
[2023-09-02] MEDS: HYDROmorphone INJ 1 MG/ML SYRINGE IV PRN (21:12)
[2023-09-03] MEDS: FAMOTIDINE 20 MG TAB PO SCH (05:45)
[2023-09-03] MEDS: ACETAMINOPHEN 500 MG TAB PO SCH (05:46)
--- NOTE | 2023-09-03 07:11 | Hospitalist Progress Note ---
Date of Service September 03, 2023 Assessment & Plan (1) Fall: Plan: Pt is a 83 yo male with a past medical history of pacemaker, HTN, HLD, GERD, CAD, COPD on 2L oxygen at night, hx Mi with stent, hx PAD with bypass, and BPH who presents to the hospital on 08/24/23 for fall. Spinal compression fracture - presented after fall out of car, seems to have been a presyncopal episode/ gait disturbance -Spinal imaging with an L2 compression fx with retropulsed fragments up to 3mm and a questionable T7 compression fx. - head CT wnl, chest CT no posttraumatic abnormalities -ortho spine consulted; recommend mobilization with physical therapy weightbearing as tolerated, lumbar corset, f/u 2-3 weeks for upright films -pain control: Tylenol scheduled, IV Dilaudid prn -PT daily, CM following: [facility] called today and refers they would prefer HH. presyncope -suspect this may be at play given low BP here and use of lasix/ flomax - pacemaker interrogation done. 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 No leukocytosis. Neg procal. - Likely pneumonitis. Defer abx. Pulmonary nodule -There are 2 spiculated pulmonary nodules seen in the right upper and right lower lobes which measure up to 10 mm and are unchanged from 11/18/2022. These are suspicious for neoplasms. An 8 mm irregular nodule in the right middle lobe is new from previous. - Nonemergent follow-up with pulmonology is recommended AAA, chronic -3.6 x 3.9 cm infrarenal abdominal aortic aneurysm seen on imaging CHF CAD s/p PCI PAD s/p bypass -cont. asa, metoprolol, lasix COPD -chronically on 2L O2 qhs -cont. symbicort -duoneb prn HTN -cont. metoprolol HLD -cont. statin H/o convulsions Muscle spasms -cont. carbamazepine, methocarbamol GERD -cont. pepcid, protonix BPH -cont. finasteride, tamsulosin Constipation -cont. miralax DVT ppx: heparin SQ Code: full Diet: HH Diposition: pending placement for rehab, CM following Prior to hospital stay: pt lives with significant other, used a walker to get around, completed ADLs on own Admission and Anticipated Discharge Date Admission Date: August 24, 2023 Subjective Pt is a 83 yo male with a past medical history of pacemaker, HTN, HLD, GERD, CAD, COPD on 2L oxygen at night, hx Mi with stent, hx PAD with bypass, and BPH who presents to the hospital on 08/24/23 for fall. Patient evaluated at bedside this AM, he notes the pain is still, responding well to pain medication. Waiting for placement for rehab. Doing PT daily Review of Systems Review of Systems: as per HPi Physical Exam Constitutional: WD/WN, vitals as above Respiratory: normal respiratory effort, lungs clear to auscultation Cardiovascular: RRR, no murmur, no edema Gastrointestinal (Abdomen): normal bowel sounds, soft, nontender, no hepatosplenomegaly Musculoskeletal: no cyanosis or clubbing, extremities motor strength 5/5 Results & Data Results & Data Vital Signs (Past 12 Hours) Vital Signs Temp Pulse Pulse Resp BP Pulse Ox O2 Del Method 09/03/23 00:43 75 09/03/23 00:28 Room Air 09/02/23 22:00 37.1 C 74 18 150/69 H 95 Room Air
[2023-09-03 07:35] LABS: Basophils # (auto) 0.05 K/uL (0.00-0.20); Basophils % (auto) 0.7 %; Eosinophils # (auto) 1.15 K/uL (0.00-0.50); Eosinophils % (auto) 15.8 %; Hematocrit (blood only) 31.5 % (42.0-52.0); Hemoglobin 10.4 g/dl (14.0-18.0); Immature Granulocytes # (auto) 0.05 K/uL (0.01-0.20); Immature Granulocytes % (auto) 0.7 %; Lymphocytes # (auto) 1.35 K/uL (1.20-3.40); Lymphocytes % (auto) 18.5 %; Mean Corpuscular Hemoglobin 32.9 pg (25.0-34.0); Mean Corpuscular Volume 99.7 fL (80.0-100.0); Mean Platelet Volume 9.8 fL (9.4-12.4); Monocytes # (auto) 0.65 K/uL (0.11-0.59); Monocytes % (auto) 8.9 %; Neutrophils # (auto) 4.03 K/uL (1.40-6.50); Neutrophils % (auto) 55.4 %; Platelet Count 386 K/uL (130-400); RDW Coefficient of Variation 15.1 % (11.5-14.5); RDW Standard Deviation 55.1 fL (36.4-46.3); Red Blood Count 3.16 M/uL (4.70-6.10); White Blood Count 7.28 K/ul (4.8-10.8)
[2023-09-03 08:00] LABS: Albumin Globulin Ratio 1.1 (0.9-2); Albumin Level 3.1 gm/dl (3.4-5.0); BUN Creatinine Ratio 45.8 (10-20); Bilirubin,Total 0.3 mg/dl (0.2-1.0); Calcium 8.5 mg/dl (8.6-10.3); Creatinine Clr Calc Pharmacy 58.9 ml/min; Est GFR (African American) 107.8 ml/min; Globulin 2.8 gm/dl (2.5-4.0); Potassium 3.7 mmol/L (3.5-5.1); Total Protein 5.9 gm/dl (6.0-8.3)
[2023-09-03] MEDS: FINASTERIDE 5 MG TAB PO SCH (08:14)
[2023-09-03] MEDS: carBAMazepine 200 MG TABLET PO SCH (08:14)
[2023-09-03] MEDS: ASPIRIN 81 MG ECTAB PO SCH (08:14)
[2023-09-03] MEDS: LIDOCAINE 5% 1 PATCH TD SCH (08:14)
[2023-09-03] MEDS: FUROSEMIDE 20 MG TAB PO SCH (08:14)
[2023-09-03] MEDS: FLUTICASONE PROPIONATE NA SPR 16 GM BTL SCH (08:14)
[2023-09-03] MEDS: FLUTICASONE/VILANTEROL 100/25MCG 14 PUFFS/INHALER INH SCH (08:14)
[2023-09-03] MEDS: METHOCARBAMOL 750 MG TABLET PO SCH (08:15)
[2023-09-03] MEDS: HEPARIN SOD 5,000 UNIT/0.5 ML VIAL SQ SCH (08:15)
[2023-09-03] MEDS: POLYETHYLENE (MIRALAX) 17 GM PACK PO SCH (08:15)
[2023-09-03] MEDS: METOPROLOL SUCC 25MG EXT REL TAB PO SCH (08:15)
[2023-09-03] MEDS: TAMSULOSIN HCL 0.4 MG CAP PO SCH (08:15)
[2023-09-03] MEDS: PANTOprazole 40 MG TAB PO SCH (08:15)
[2023-09-03] MEDS: HYDROmorphone INJ 1 MG/ML SYRINGE IV PRN (08:17)
--- NOTE | 2023-09-03 15:52 | Discharge Summary ---
Date of Service September 03, 2023 Admission HPI Per Admitting Provider 82 yo male with PMHx of COPD (2L O2 qhs), CAD s/p PCI (2010), pulmonary nodules, AAA, PAD s/p bypass, afib s/p ICD with pacer, convulsions, muscle spasms, CHF, GERD, BPH, HTN, HLD presents with fall. Ambulates with a cane. Yesterday afternoon patient was sitting in the passenger seat of his truck waiting for assistance to get out of the vehicle and the next thing he knows is that he is on the ground beside the vehicle. He is unsure what caused him to fall but states he may have passed out. He thinks he might of hit his head but denies loss of consciousness. Prior to this event he was completely asymptomatic. However after the fall and in the emergency room he did have significant chest pain, epigastric pain, back pain, nausea, and shortness of breath. He did recently have a right lower extremity arterial bypass 1 month ago. Admission Exam Per Admitting Provider Constitutional:frail, in no acute distress, pleasant and normal affect, intact memory. AOx3. Vitals as above. HEENT: No scleral injection or discharge.Moist mucous membranes. Neck: Supple without lymphadenopathy. Trachea midline. Lungs: Clear to auscultation bilaterally with good effort. No wheezes/rales/rhonchi. Cardiac: Regular rate and rhythm.No murmurs.No lower extremity edema. 2+ distal peripheral pulses. Abdomen: Bowel sounds present. Soft, nontender, and nondistended.No guarding. No hepatosplenomegaly. MSK: No cyanosis or clubbing. +reproducible R chest wall pain. +paraspinal tenderness thoracic/lumbar region. Without midline spine tenderness. No spinal step off. Skin: No abnormal rashes, warm, dry. Neurologic: no focal deficits other than some difficulty lifting his L lower extremity however this may be chronic. Normal sensation bilaterally. EOMI. PERRL. Principal Diagnosis Spinal compression fracture Discharge Exam Constitutional WD/WN, vitals as above Respiratory normal respiratory effort, lungs clear to auscultation Cardiovascular RRR, no murmur, no edema Gastrointestinal (Abdomen) normal bowel sounds, soft, nontender, no hepatosplenomegaly Musculoskeletal no cyanosis or clubbing, extremities motor strength 5/5 Spine: + pain with lateral compression Skin no rashes, warm and dry Discharge Data Allergies Allergy/AdvReac Type Severity Reaction Status Date / Time tiotropium Allergy Severe "CAN'T Verified 08/24/23 18:15 CATCH MY BREATH". Consultations 08/24/23 21:28 ED Decision to Admit Stat 08/25/23 10:05 Consult Orthopedic Spine Surgery Routine Ordered Studies Abdomen/Pelvis CT 08/24/23 16:56 CT SCAN OF THE CHEST, ABDOMEN, AND PELVIS WITH IV CONTRAST; CT SCAN OF THE THORACIC SPINE WITH IV CONTRAST; CT SCAN OF THE LUMBAR SPINE WITH IV CONTRAST CLINICAL HISTORY: Trauma. Fall. COMPARISON STUDY: Chest CT dated 11/18/2022. TECHNIQUE: Following the IV administration of 80 of Optiray 320, CT scan of the chest, abdomen, and pelvis was performed from the thoracic inlet to the proximal femora. Additionally, CT scan of the thoracic spine is performed from the lower cervical spine to the upper lumbar spine and CT scan of the lumbar spine is performed from the lower thoracic spine to the sacrum. Images for these examinations are reviewed in the axial, sagittal, and coronal planes. IV contrast was administered without complication. A dose lowering technique was utilized adhering to the principles of ALARA. CT DOSE: 2319.42 mGy.cm FINDINGS: CHEST: Thyroid: Normal in size and heterogeneous in attenuation. Thoracic aorta: There is atherosclerotic calcification of the thoracic aorta. There is ectasia of the ascending thoracic aorta which measures up to 3.9 cm in diameter. The remainder of the thoracic aorta is normal in caliber comment the arch demonstrates standard 3-vesselanatomy. No dissection is seen. Pulmonary vasculature: The pulmonary trunk is normal in caliber. There are no filling defects identified in the central pulmonary vessels to indicate pulmonary embolus. Note that this examination was not protocoled for evaluation of the pulmonary arteries. Heart: A pacemaker is noted in the left chest wall. The heart is top normal in size and without pericardial effusion. The coronary arteries are densely calcified. Lungs and pleural spaces: Emphysematous change is noted. Patchy ground glass consolidation throughout the right upper lobe is new from 11/18/2022. No pleural effusion or pneumothorax is identified. The trachea and central airways are clear. An 8 mm spiculated nodule in the right lower lobe on image #118 and a 10 mm spiculated nodule at the right apex on image #39 are unchanged. An 8 mm right middle lobe nodule on image #169 was not seen previously. Mediastinum: There is no mediastinal hematoma or lymphadenopathy. Pam: Clear. Axillae: There is no axillary lymphadenopathy. Bony thorax: The skeletal structures are osteopenic. See below for dedicated ass essment of the thoracic spine. No acute/displaced rib fracture is identified. There are chronic/healed bilateral rib fractures. No lytic or blastic lesions are identified. THORACIC SPINE: There is no evidence of acute fracture or malalignment involving the thoracic spine. Question a minimal subacute superior endplate compression fracture of T7. This is best seen on sagittal image #37. There are mild chronic compression deformities of T2, T3, and T4. Vertebral body height there is otherwise maintained throughout the thoracic spine. Alignment is preserved. The transverse and spinous processes are intact. There is mild hyperkyphosis and the upper thoracic region. Small anterior osteophytes are seen throughout. There is mild multilevel degenerative disc space narrowing. There is no evidence of large disc herniation or high-grade central canal stenosis by CT. The paraspinous soft tissues are normal in appearance. ABDOMEN AND PELVIS: Liver: The contrast-enhanced liver is normal in size, contour, and attenuation. There is no intrahepatic biliary ductal dilatation. The hepatic veins and portal veins are patent. Gallbladder: Unremarkable. Spleen: Normal in size and attenuation. Pancreas: Unremarkable. Adrenal glands: Unremarkable. Kidneys: The contrast enhanced kidneys demonstrate mild cortical atrophy and are without hydronephrosis. The kidneys enhance symmetrically. A 5.2 cm cyst arises from the lower pole of the right kidney. Additional 1.3 cm cyst is seen in the right upper pole. Abdominal vasculature: There is advanced atherosclerotic calcification of the ab dominal aorta. An infrarenal abdominal aortic aneurysm measures 3.6 x 3.9 cm (AP x transverse). The abdominal aorta is patent. The minimum patent luminal diameter measures up to 1.1 cm. A right axillary bifemoral bypass is patent. There is intraluminal thrombus with moderate to high-grade stenosis within the left aspect of the femorofemoral bypass. This is best seen on axial image #244. There is advanced atherosclerotic plaque and irregularity throughout the iliac arteries. 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 There is complete thrombosis of the proximal right superficial femoral artery. There is also likely complete thrombosis of the left proximal superficial femoral artery. Bowel: There is moderate colonic fecal retention. No bowel obstruction is seen. There is sigmoid diverticulosis without CT evidence of acute diverticulitis. The appendix is not visualized. Peritoneum: There is no intraperitoneal free air or abdominal ascites. Lymphadenopathy: None. Pelvic viscera: Evaluation of the pelvis is degraded by hardware in the right proximal femur. The prostate gland is enlarged and heterogeneous. The bladder wall is thickened/trabeculated indicating chronic outlet obstruction. Skeletal structures: The skeletal structures are osteopenic. See below for dedicated assessment of the lumbar spine. No lytic or blastic lesions are seen. There is posttraumatic deformity of the right proximal femur with intertrochanteric and intramedullary nails in place. There is incomplete bony fusion of the fragments. There is a chronic deformity of the sacrum. The bony pelvis and left proximal femur otherwise appear intact. Arthritic change is noted in the hips. LUMBAR SPINE: There is an acute burst-type compression fracture of T12. There is mild loss of height. There are only minimally retropulsed fragments by up to 3 mm. Fracture does not appear to involve the posterior elements. There is paravertebral edema. There is an age indeterminate but chronic-appearing superior end plate compression deformity of L4. Vertebral body height is otherwise maintained throughout the lumbar spine. Alignment is preserved. The transverse and spinous processes are intact. There is no spondylolysis. There is severe disc space narrowing at L5-S1. Only mild narrowing is seen at the remaining lumbar levels. Posterior disc ostomy complexes are seen all lumbar levels. There is likely at least mild central canal stenosis at L3-L4. The paraspinous soft tissues are within normal limits. IMPRESSION: 1. There is no acute posttraumatic intrathoracic abnormality. 2. There is no pleural effusion or pneumothorax. 3. Patchy groundglass consolidation in the right upper lobe is new from previous and likely represents pneumonia/aspiration pneumonitis. Clinical correlation will be required. 4. There is no evidence of solid organ injury in the abdomen or pelvis. 5. There is an acute burst-type compression fracture of L2. There is only minimal retropulsion of fragments. No posterior element involvement is identified and there is no significant central canal stenosis at this level. 6. Question a minimal subacute superior endplate compression fracture of T7. Correlate for point tenderness. 7. No additional acute fracture is seen involving the thoracic or lumbar spine. Chronic thoracolumbar compression deformities are discussed above. 8. Emphysema. 9. There are 2 spiculated pulmonary nodules seen in the right upper and right lower lobes which measure up to 10 mm and are unchanged from 11/18/2022. These are suspicious for neoplasms. An 8 mm irregular nodule in the right middle lobe is new from previous. Nonemergent follow-up with pulmonology is recommended, as is attention to these nodules at follow-up. 10. A right axillary bifemoral bypass is patent. 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 11. There is a 3.6 x 3.9 cm infrarenal abdominal aortic aneurysm. 12. Additional findings as above. ACT 112: Positive. There are findings on this exam that require communication between the performing entity and the patient following Patient Test Result Information Act ([place] Act 112) guidelines. Electronically signed by: Lamin Aragon M.D. 08/24/2023 7:[address] 08/24/23 16:56 CT SCAN OF THE CERVICAL SPINE CLINICAL HISTORY: Trauma. COMPARISON STUDY: CT of the cervical spine dated 11/18/2022. TECHNIQUE: CT scan of the cervical spine is performed from the skull base to the upper thoracic spine. Images are reviewed in the axial, sagittal, and coronal planes. IV contrast was not administered for this examination. A dose lowering technique was utilized adhering to the principles of ALARA. FINDINGS: Skeletal structures: The skeletal structures are osteopenic. There is no evidence of fracture or subluxation involving the cervical spine. Vertebral body height is maintained. There is 4 mm anterolisthesis at C3-C4. Minimal retrolisthesis is noted at C4-C5. This is unchanged from previous. There is straightening of the cervical lordosis with reversal centered at C4. Large anterior osteophytes are seen throughout. The odontoid process and lateral masses are intact. The atlantoaxial articulation is preserved noting productive degenerative change. The spinous processes appear intact. There are mild chronic compression deformities in the upper thoracic region. There is moderate multilevel cervical spondylosis. Uncovertebral facet arthropathy contribute to neural foraminal stenosis at several levels. Intervertebral discs: There is severe disc space narrowing at C3-C4, C4-C5, C5- C6. Moderate narrowing is seen at C6-C7. There is multilevel endplate sclerosis. Central canal: Posterior disc osteophyte complexes are seen at all cervical levels between C3-C4 and C6-C7. This likely contributes to multilevel acquired compromise of the central canal. Soft tissues: The prevertebral and paraspinous soft tissues are within normal limits. There is advanced atherosclerotic calcification of the carotid bulbs. A stent is noted in the left carotid artery. Calvarium: The visualized calvarium at the skull base appears intact. Brain parenchyma: Partially visualized brain parenchyma at the skull base is within normal limits. Sinuses and mastoids: The visualized paranasal sinuses are clear. The mastoid air cells are well pneumatized. Lung apices: Emphysematous change is noted. Apical lung parenchyma is otherwise clear as imaged. IMPRESSION: 1. There is no evidence of fracture or subluxation involving the cervical spine. 2. Osteopenia and spondylotic change as above. ACT 112: Negative or not required by law. Electronically signed by: Lamin Aragon M.D. 08/24/2023 6:[address] 08/24/23 16:56 CT SCAN OF THE CHEST, ABDOMEN, AND PELVIS WITH IV CONTRAST; CT SCAN OF THE THORACIC SPINE WITH IV CONTRAST; CT SCAN OF THE LUMBAR SPINE WITH IV CONTRAST CLINICAL HISTORY: Trauma. Fall. COMPARISON STUDY: Chest CT dated 11/18/2022. TECHNIQUE: Following the IV administration of 80 of Optiray 320, CT scan of the chest, abdomen, and pelvis was performed from the thoracic inlet to the proximal femora. Additionally, CT scan of the thoracic spine is performed from the lower cervical spine to the upper lumbar spine and CT scan of the lumbar spine is performed from the lower thoracic spine to the sacrum. Images for these examinations are reviewed in the axial, sagittal, and coronal planes. IV contrast was administered without complication. A dose lowering technique was utilized adhering to the principles of ALARA. CT DOSE: 2319.42 mGy.cm FINDINGS: CHEST: Thyroid: Normal in size and heterogeneous in attenuation. Thoracic aorta: There is atherosclerotic calcification of the thoracic aorta. There is ectasia of the ascending thoracic aorta which measures up to 3.9 cm in diameter. The remainder of the thoracic aorta is normal in caliber comment the arch demonstrates standard 3-vesselanatomy. No dissection is seen. Pulmonary vasculature: The pulmonary trunk is normal in caliber. There are no filling defects identified in the central pulmonary vessels to indicate pulmonary embolus. Note that this examination was not protocoled for evaluation of the pulmonary arteries. Heart: A pacemaker is noted in the left chest wall. The heart is top normal in size and without pericardial effusion. The coronary arteries are densely calcified. Lungs and pleural spaces: Emphysematous change is noted. Patchy ground glass consolidation throughout the right upper lobe is new from 11/18/2022. No pleural effusion or pneumothorax is identified. The trachea and central airways are clear. An 8 mm spiculated nodule in the right lower lobe on image #118 and a 10 mm spiculated nodule at the right apex on image #39 are unchanged. An 8 mm right middle lobe nodule on image #169 was not seen previously. Mediastinum: There is no mediastinal hematoma or lymphadenopathy. Pam: Clear. Axillae: There is no axillary lymphadenopathy. Bony thorax: The skeletal structures are osteopenic. See below for dedicated assessment of the thoracic spine. No acute/displaced rib fracture is identified. There are chronic/healed bilateral rib fractures. No lytic or blastic lesions are identified. THORACIC SPINE: There is no evidence of acute fracture or malalignment involving the thoracic spine. Question a minimal subacute superior endplate compression fracture of T7. This is best seen on sagittal image #37. There are mild chronic compression deformities of T2, T3, and T4. Vertebral body height there is otherwise maintained throughout the thoracic spine. Alignment is preserved. The transverse and spinous processes are intact. There is mild hyperkyphosis and the upper thoracic region. Small anterior osteophytes are seen throughout. There is mild multilevel degenerative disc space narrowing. There is no evidence of large disc herniation or high-grade central canal stenosis by CT. The paraspinous soft tissues are normal in appearance. ABDOMEN AND PELVIS: Liver: The contrast-enhanced liver is normal in size, contour, and attenuation. There is no intrahepatic biliary ductal dilatation. The hepatic veins and portal veins are patent. Gallbladder: Unremarkable. Spleen: Normal in size and attenuation. Pancreas: Unremarkable. Adrenal glands: Unremarkable. Kidneys: The contrast enhanced kidneys demonstrate mild cortical atrophy and are without hydronephrosis. The kidneys enhance symmetrically. A 5.2 cm cyst arises from the lower pole of the right kidney. Additional 1.3 cm cyst is seen in the right upper pole. Abdominal vasculature: There is advanced atherosclerotic calcification of the abdominal aorta. An infrarenal abdominal aortic aneurysm measures 3.6 x 3.9 cm (AP x transverse). The abdominal aorta is patent. The minimum patent luminal diameter measures up to 1.1 cm. A right axillary bifemoral bypass is patent. There is intraluminal thrombus with moderate to high-grade stenosis within the left aspect of the femorofemoral bypass. This is best seen on axial image #244. There is advanced atherosclerotic plaque and irregularity throughout the iliac arteries. 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 There is complete thrombosis of the proximal right superficial femoral artery. There is also likely complete thrombosis of the left proximal superficial femoral artery. Bowel: There is moderate colonic fecal retention. No bowel obstruction is seen. There is sigmoid diverticulosis without CT evidence of acute diverticulitis. The appendix is not visualized. Peritoneum: There is no intraperitoneal free air or abdominal ascites. Lymphadenopathy: None. Pelvic viscera: Evaluation of the pelvis is degraded by hardware in the right proximal femur. The prostate gland is enlarged and heterogeneous. The bladder wall is thickened/trabeculated indicating chronic outlet obstruction. Skeletal structures: The skeletal structures are osteopenic. See below for dedicated assessment of the lumbar spine. No lytic or blastic lesions are seen. There is posttraumatic deformity of the right proximal femur with intertrochanteric and intramedullary nails in place. There is incomplete bony fusion of the fragments. There is a chronic deformity of the sacrum. The bony pelvis and left proximal femur otherwise appear intact. Arthritic change is noted in the hips. LUMBAR SPINE: There is an acute burst-type compression fracture of T12. There is mild loss of height. There are only minimally retropulsed fragments by up to 3 mm. Fracture does not appear to involve the posterior elements. There is paravertebral edema. There is an age indeterminate but chronic-appearing superior end plate compression deformity of L4. Vertebral body height is otherwise maintained throughout the lumbar spine. Alignment is preserved. The transverse and spinous processes are intact. There is no spondylolysis. There is severe disc space narrowing at L5-S1. Only mild narrowing is seen at the remaining lumbar levels. Posterior disc ostomy complexes are seen all lumbar levels. There is likely at least mild central canal stenosis at L3-L4. The paraspinous soft tissues are within normal limits. IMPRESSION: 1. There is no acute posttraumatic intrathoracic abnormality. 2. There is no pleural effusion or pneumothorax. 3. Patchy groundglass consolidation in the right upper lobe is new from previous and likely represents pneumonia/aspiration pneumonitis. Clinical correlation will be required. 4. There is no evidence of solid organ injury in the abdomen or pelvis. 5. There is an acute burst-type compression fracture of L2. There is only minimal retropulsion of fragments. No posterior element involvement is identified and there is no significant central canal stenosis at this level. 6. Question a minimal subacute superior endplate compression fracture of T7. Correlate for point tenderness. 7. No additional acute fracture is seen involving the thoracic or lumbar spine. Chronic thoracolumbar compression deformities are discussed above. 8. Emphysema. 9. There are 2 spiculated pulmonary nodules seen in the right upper and right lower lobes which measure up to 10 mm and are unchanged from 11/18/2022. These are suspicious for neoplasms. An 8 mm irregular nodule in the right middle lobe is new from previous. Nonemergent follow-up with pulmonology is recommended, as is attention to these nodules at follow-up. 10. A right axillary bifemoral bypass is patent. 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 11. There is a 3.6 x 3.9 cm infrarenal abdominal aortic aneurysm. 12. Additional findings as above. ACT 112: Positive. There are findings on this exam that require communication between the performing entity and the patient following Patient Test Result Information Act ([place] Act 112) guidelines. Electronically signed by: Lamin Aragon M.D. 08/24/2023 7:[address] 08/24/23 16:56 CT SCAN OF THE BRAIN WITHOUT IV CONTRAST CLINICAL HISTORY: Trauma. Fall. COMPARISON STUDY: CT of the brain dated 11/18/2022. TECHNIQUE: Unenhanced axial CT scan of the brain is performed from the vertex to the skull base. A dose lowering technique was utilized adhering to the principles of ALARA. FINDINGS: Brain parenchyma: There is age-related involutional change noting moderate subcortical and periventricular microangiopathic disease. There is no hemorrhage, mass effect, or evidence of acute territorial ischemia by CT criteria. Frederick-white matter differentiation is preserved. No extra-axial fluid collection is seen. Ventricles, sulci, cisterns: Prominent secondary to involutional change. Intracranial vasculature: There is atherosclerotic calcification of the cavernous carotid and vertebral artery. Calvarium: The skeletal structures are osteopenic. No depressed calvarial fracture is identified. Soft tissues: A metallic foreign body is partially visualized in the left facial soft tissues. There may also be a punctate metallic foreign body in the region of the left orbit. Sinuses and mastoids: The visualized paranasal sinuses are clear. The mastoid air cells are well pneumatized. Orbits: The bony orbits are grossly intact. There are bilateral ocular lens implants. IMPRESSION: 1 There is no hemorrhage, mass effect, or evidence of acute territorial ischemia by CT criteria. 2. Suspect a punctate metallic foreign body in the region of the left orbit. Note that this is likely a contraindication to MRI. ACT 112: Negative or not required by law. Electronically signed by: Lamin Aragon M.D. 08/24/2023 6:[address] 08/24/23 16:56 CT SCAN OF THE CHEST, ABDOMEN, AND PELVIS WITH IV CONTRAST; CT SCAN OF THE THORACIC SPINE WITH IV CONTRAST; CT SCAN OF THE LUMBAR SPINE WITH IV CONTRAST CLINICAL HISTORY: Trauma. Fall. COMPARISON STUDY: Chest CT dated 11/18/2022. TECHNIQUE: Following the IV administration of 80 of Optiray 320, CT scan of the chest, abdomen, and pelvis was performed from the thoracic inlet to the proximal femora. Additionally, CT scan of the thoracic spine is performed from the lower cervical spine to the upper lumbar spine and CT scan of the lumbar spine is performed from the lower thoracic spine to the sacrum. Images for these examinations are reviewed in the axial, sagittal, and coronal planes. IV contrast was administered without complication. A dose lowering technique was utilized adhering to the principles of ALARA. CT DOSE: 2319.42 mGy.cm FINDINGS: CHEST: Thyroid: Normal in size and heterogeneous in attenuation. Thoracic aorta: There is atherosclerotic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 fall and spinal fx -trops x2 neg -EKG without ST changes Pulmonary nodule -There are 2 spiculated pulmonary nodules seen in the right upper and right lower lobes which measure up to 10 mm and are unchanged from 11/18/2022. These are suspicious for neoplasms. An 8 mm irregular nodule in the right middle lobe is new from previous. - Nonemergent follow-up with pulmonology is recommended AAA, chronic -3.6 x 3.9 cm infrarenal abdominal aortic aneurysm seen on imaging. Follow outpatient CHF; CAD s/p PCI; PAD s/p bypass-cont. asa, metoprolol, lasix COPD; chronic resp failure -chronically on 2L O2 qhs, cont. symbicort, duoneb prn HTN -cont. metoprolol HLD -cont. statin H/o convulsions - on carbamazepine, Muscle spasms-cont. methocarbamol, tizanidine GERD-cont. pepcid, protonix BPH-cont. finasteride, tamsulosin Anxiety - lorazepam Total Time Total Time Spent Total Time Spent (In Minutes): see above Discharge Plan Discharge Items Patient Disposition: Home - Home Health Services Reason For Visit: FALL Discharge Diagnosis: Spinal compression fracture Activity: Resume your previous activity Non-emergency contact: Primary Care Provider Call non-emergency contact if: you have any medication questions, your pain is unusual for you, your pain is concerning for you and your temperature is above 101 Follow-up/Referrals: James Madsen PA-C [Primary Care Provider] - Diet: Regular Addtl Attending Provider Instructions: You were here in the hospital after a fall. On admission you were found with spinal compression fracture. Orthopedic saw you and did not recommended any surgical management for now. They recommended mobilization with physical therapy weightbearing as tolerated, lumbar corset and follow up with them 2-3 weeks, as well a repeat of the x rays. You will be sent home with H/H and physical therapy. Additionally you were found with a blot clot on your bypass on your femoral artery. We discussed with Vascular surgery and they recommended a drug called Eliquis. This type of drug is what we called an anticoagulation therapy (blood thinner). As discussed with you and your significant other, Thania, this increase the risk of bleeding, specially after a falling. The use of the anticoagulation would bring stability and prevent that the thrombus sludge from his place and provoke an stroke. We sent to your pharmacy a medication called Eliquis, you will take 5 mg twice a day. We additionally stop a medication called Carbamazepine 200 mg Follow-up appointments: Make a follow-up appointment with your PCP within the next week. It is very important that you follow up with them shortly after discharge from the hospital. -We coordinate with our case management follow up with orthopedic and Vascular surgery in 3-4 weeks. Keep all your follow-up appointments as already scheduled. If you cannot make an appointment, notify your provider. Medications: Your medication list has been reviewed and reconciled upon discharge to ensure accuracy and continuity of care. An updated list of all your medications is included with your hospital discharge paperwork. Please review this list closely, and make note of any changes. Take your medications as instructed; do not skip a dose of your medicines. Make sure all of your doctors know every medicine you are taking (including apvp-bji-sufxlqe medicines, vitamins, and supplements). Call your primary care provider before taking any new medicines (including zmdm-bbv-dvdupui medicines, vitamins, and supplements), because some of these may interact with your current medications, or may make your symptoms worse. Tell your primary care provider if you cannot afford your medications. CONTACT YOUR PRIMARY CARE PROVIDER if you experience any of the following: Difficulty following your treatment plan, or difficulty taking medications CALL 911 OR GO TO THE EMERGENCY DEPARTMENT if you experience any of the following: Sudden, severe abdominal pain or nausea/vomiting Severe chest pain, or chest pain that radiates (moves) to your jaw or arm Sudden, severe shortness of breath or difficulty breathing Thank you for allowing us to participate in your care. Pending Studies at Discharge: No Stand-Alone Forms: My [facility], Smoking Cessation Medications and DC Order Prescriptions: New Eliquis 5 mg tablet 5 mg PO BID Qty: 60 0RF Continued acetaminophen [Tylenol Extra Strength] 500 mg tablet 1,000 mg PO Q8 PRN (Reason: Fever Or Pain) PNV cmb#95-ferrous fumarate-FA [] 28 mg iron- 800 mcg tablet 1 tab PO QAM oxycodone 10 mg tablet 10 mg PO Q6 PRN (Reason: Pain) methocarbamol 750 mg tablet 750 mg PO TID lorazepam 0.5 mg tablet 0.5 mg PO Q12 PRN (Reason: Anxiety) tizanidine 4 mg tablet 4 mg PO Q8H PRN (Reason: MUSCLE SPASMS) aspirin 81 mg Tablet,Delayed Release (Dr/Ec) 81 mg PO DAILY famotidine 20 mg tablet 20 mg PO DAILYBB tamsulosin 0.4 mg capsule 0.8 mg PO QAM pantoprazole 40 mg tablet,delayed release (DR/EC) 40 mg PO BID simvastatin 20 mg tablet 40 mg PO QPM folic acid 1 mg tablet 1 mg PO DAILY furosemide 20 mg tablet 20 mg PO DAILY metoprolol succinate 25 mg tablet extended release 24 hr 12.5 mg PO DAILY albuterol sulfate 90 mcg/actuation HFA aerosol inhaler 2 puff INHALATION Q4H PRN (Reason: Shortness Of Breath) fluticasone propionate 50 mcg/actuation spray,suspension 2 spray INTRANASAL DAILY finasteride 5 mg tablet 5 mg PO DAILY potassium chloride [Klor-Con M10] 10 mEq tablet,ER particles/crystals 10 meq PO DAILY cholecalciferol (vitamin D3) 25 mcg (1,000 unit) tablet 50 mcg PO DAILY budesonide-formoterol [Symbicort] 160-4.5 mcg/actuation HFA aerosol inhaler 2 inh INHALATION BID sennosides-docusate sodium [Senokot-S] 8.6-50 mg Tablet 2 tab PO HS Qty: 20 0RF polyethylene glycol 3350 [Miralax] 17 gram Powder In Packet 17 g PO DAILY Qty: 30 0RF Discontinued carbamazepine 200 mg tablet 200 mg PO TID Discharge Orders: Discharge Order (Routine); Ordered 09/03/23 Ordered By: Samira Chirinos Admission Data Admit Date/Time: 08/24/23 23:14 Attending Provider: Huyen Sidhu Admit Provider: Virgil Deleon Primary Care Provider: James Madsen Other Providers: Dora Ferguson; Fito Calles; [place]; [place]; Filippo Thibodeaux,Rehab; Antonio Medina Other Interventions: Discharge Summary Assessment (RN) Last Done: 09/03/23 13:00 Supervising Physician Co-Signing Physician Notes Attending Physician Supervision Note: I independently interviewed and examined the patient and verified the daniels history and physical, reviewed labs and image studies and agree with findings and care plan noted above. discharge summary was reviewed after patient was discharged. Noted that carbamazepine was d/marc due to concern of interaction with eliquis. I called the regarding carbamazepine and she reported that patient has continued carbamazepine. I called family physician (James Steven) office - to discuss and consider switching anticonvulsant to keppra. left message to call back. Advised the patient's to have a quick hospital follow up with pcp to address this.
--- NOTE | 2023-09-05 14:28 | Coding Query ---
CODING QUERY To promote full compliance with coding requirements relating to patient care, provider participation is requested in all cases of varnishing unit operator uncertainty. Please assist us with the question(s) below: Coding Question(s): Ayaz admitted with vertebral fractures. Progress notes mention pneumonits , Antibiotics deferred. No mention of Pneumonia on discharge summary, Please check below the phrase that describes the pneumonia. Thanks for your help . Pasquale Ochoa SW[employer] HOUSE OPERATOR [facility] Physician's Response(s): Pneumonitis was treated , Present on admission __x Pneumonitis was not not treated Other: please document : Principal Diagnosis: "that condition established after study, to be chiefly responsible for occasioning the admission of the patient to the hospital for care." Co-Existing Principal Diagnosis: "when two or more diagnoses equally meet the criteria for principal diagnosis as determined by the circumstances of admission, diagnostic work up, and/or therapy provided, and the Alphabetic Index, Tabular List, or another coding guideline does not provide sequencing direction, any one of the diagnoses may be sequenced first." "When the physician has documented what appears to be a current diagnosis in the body of the record, but has not included the diagnosis in the final diagnostic statement, the physician should be asked whether the diagnosis should be added." (Source Coding [facility] 2 QTR90. p3-4) SANKET
== END 2023-09-03 13:00 | disposition home health service (06) | DRG 552 ==
LOC: ED 16:42 → EDINP 23:14 → SUATTDRO 23:14 → 2N 08-25 02:29 → 2W 09-01 23:21